=== PATIENT | male | born 1955 | race Caucasian/White ===

== ENCOUNTER 2016-11-13 12:44 | Inpatient (IN) | payer OTHER ==
[~2016-11-13] VITALS: Ht 167.6 cm; Wt 65.0 kg
[2016-11-13 12:44] VITALS: O2SAT 100
[~2016-11-13 12:44] MED LIST: HYDR-3533 PO
[2016-11-13] MEDS ORDERED: ETOMIDATE 20 MG/10 ML VIAL ONE (12:52)
[2016-11-13] MEDS ORDERED: SUCCINYLCHOLINE CHLORIDE 200 MG/10 ML VIAL ONE (12:53)
[2016-11-13] MEDS ORDERED: PROPOFOL 1000 MG/100 ML INJ 100 ML ONE ×3 (12:57→18:30)
--- NOTE | 2016-11-13 13:12 | PD ---
Data Data Orders Orders Etomidate Inj (Amidate Inj) (11/13/16 12:52) Succinylcholine Inj (Quelicin Inj) (11/13/16 12:53) Propofol 1000 Mg/100 Ml Inj (Diprivan 10 (11/13/16 12:57) Propofol 1000 Mg/100 Ml Inj (Diprivan 10 (11/13/16 13:02) MDM Supervised Visit with JAJA: No Procedures Procedure Narrative Intubation was done emergently. it was obtained. INTUBATION: The patient was put in optimal position for the procedure. Rapid sequence intubation was initiated by Dr. Dave. This was a very difficult intubation. The patient was eventually accomplished using difficult intubation set up on the Glidescope and a bougie. The patient was intubated with a 7.0 cuffed endotracheal tube. Tube placement was confirmed by visualization of the tube and balloon passing through the cords, capnometry and bilateral breath sounds. No breath sounds over stomach. Patient tolerated procedure well. Joy Gonzalez MD Nov 13, 2016 13:12
[2016-11-13 13:19] LABS: AUTOMATED NEUTROPHIL # 12.8 TH/MM3 (1.8-7.7); BASOPHIL % 0.1 % (0.0-2.0); HEMATOCRIT 41.5 % (39.0-51.0); HEMOGLOBIN 13.6 GM/DL (13.0-17.0); INTERNATIONAL NORMALIZED RATIO 1.1 RATIO; LYMPH % 10.3 % (9.0-44.0); LYMPHOCYTE # 1.7 TH/MM3 (1.0-4.8); MEAN CELL VOLUME 103.7 FL (80.0-100.0); MEAN CORPUSCULAR HGB CONC 32.8 % (32.0-36.0); MEAN PLATELET VOLUME 9.1 FL (7.0-11.0); MONO % 13.7 % (0.0-8.0); MONOCYTE # 2.3 TH/MM3 (0-0.9); NEUT % 75.9 % (16.0-70.0); PLATELET COUNT 146 TH/MM3 (150-450); PROTHROMBIN TIME - PATIENT 11.7 SEC (9.8-11.6); RED CELL DISTRIBUTION WIDTH 13.9 % (11.6-17.2); WHITE BLOOD COUNT 16.9 TH/MM3 (4.0-11.0)
[2016-11-13] MEDS ORDERED: MANNITOL INJ 0 ML ONE (13:22)
[2016-11-13] MEDS ORDERED: IOHEXOL 350 MG/ML 10 ML VIAL (for RAD DIAG) IVCONTRAST ONE (13:28)
--- NOTE | 2016-11-13 13:44 | RADRPT ---
EXAM DATE/TIME: 11/13/2016 13:11 [facility] COMPARISON: No previous studies available for comparison. INDICATIONS : Trauma alert, found down in home, unresponsive RADIATION DOSE: Not given MEDICAL HISTORY : Non-responsive. SURGICAL HISTORY : Non-responsive. ENCOUNTER: Initial ACUITY: 1 day PAIN SCALE: Non-responsive LOCATION: cranial TECHNIQUE: Multiple contiguous axial images were obtained of the head. Using automated exposure control and adj ustment of the mA and/or kV according to patient size, radiation dose was kept as low as reasonably a chievable to obtain optimal diagnostic quality images. DICOM format image data is available electro nically for review and comparison. FINDINGS: Calvarium appears intact. There is some superficial soft tissue swelling and hematoma in the right te mporal parietal region. Intracranially midline structures and major anatomic landmarks correctly situ ated. There is a 5.4 cm area in the left cerebellar hemisphere of contusion with compression of the f ourth ventricle without evidence of obstructive hydrocephalus at this time. There is a 1.7 cm extrace rebral hematoma in the right low parietal temporal region extending into the posterior fossa and punc restrepo cortical hemorrhage in the right parietal region and in the blood is noted in the lower inner he mispheric fissure and along the tentorium. Small droplets of air are noted extracerebral E. in the po sterior right temporal region and just within the posterior right of midline posterior fossa with a f aint fracture nondistressed or distracted from the base of the skull extending cephalad in the right calvarium. There is air-fluid level in the left sphenoid sinus CONCLUSION: Right just lateral to midline occipital skull fracture. There is a 1.7 cm extracerebral subdural yomi kirby extending to the lower temporal region and lower parietal region. Contusions are noted in the le ft cerebellar hemisphere up to 5 cm in size with compression of the fourth ventricle and a contusion is noted in the right temporal lobe. There is small contusion cortically in the lower left parietal l obe. Small droplets of air are noted extracerebral E. on the right in the area of subdural hemorrhage . Note that the midline structures supratentorially are correctly situated. Yariel Odell MD on November 13, 2016 at 13:35 Board Certified Radiologist. This report was verified electronically.
--- NOTE | 2016-11-13 13:47 | RADRPT ---
EXAM DATE/TIME: 11/13/2016 13:11 [facility] COMPARISON: No previous studies available for comparison. INDICATIONS : Trauma alert, found down at home, unresponsive RADIATION DOSE: 26.35 CTDIvol (mGy) MEDICAL HISTORY : Non-responsive. SURGICAL HISTORY : Non-responsive. ENCOUNTER: Initial ACUITY: 1 day PAIN SCORE: Non-responsive LOCATION: facial TECHNIQUE: Volumetric scanning of the facial bones was performed. Using automated exposure control and adjustme nt of the mA and/or kV according to patient size, radiation dose was kept as low as reasonably achiev able to obtain optimal diagnostic quality images. DICOM format image data is available electronicall y for review and comparison. FINDINGS: ORBITS: The orbital and infraorbital osseous structures are intact. The retroconal structures have a normal configuration. No radiopaque foreign bodies are seen. NASAL BONE: The nasal bone and maxillary spine are intact ZYGOMATIC ARCHES: Symmetric without evidence of fracture. SINUSES: The maxillary, ethmoid and frontal sinuses are intact. Air-fluid level with admixture of air and flui d in the left sphenoid sinus compartment. An associated fracture in this region a swimmer's colon is not seen. NASAL CAVITY: The nasal septum is intact and midline. The lacrimal ducts are intact. Oral tracheal tube in place. SOFT TISSUES: No radiopaque foreign bodies seen. No soft-tissue swelling is seen. INTRACRANIAL: No intracranial air seen. CRIBIFORM PLATE: Grossly intact. CONCLUSION: Air-fluid level with admixture of air and fluid in the left sphenoid sinus compartment. Otherwise neg ative. Acute fracture is not identified. Yariel Odell MD on November 13, 2016 at 13:43 Board Certified Radiologist. This report was verified electronically.
--- NOTE | 2016-11-13 13:51 | RADRPT ---
EXAM DATE/TIME: 11/13/2016 13:13 [facility] COMPARISON: CT BRAIN W/O CONTRAST, November 13, 2016, 13:11. INDICATIONS : Trauma alert, found down in home, unresponsive RADIATION DOSE: 25.91 CTDIvol (mGy) MEDICAL HISTORY : Non-responsive. SURGICAL HISTORY : Non-responsive. ENCOUNTER: Initial ACUITY: 1 day PAIN SCALE: Non-responsive LOCATION: neck TECHNIQUE: Volumetric scanning of the cervical spine was performed. Multiplanar reconstructions in the sagittal, coronal and oblique axial planes were performed. Using automated exposure control and adjustment o f the mA and/or kV according to patient size, radiation dose was kept as low as reasonably achievable to obtain optimal diagnostic quality images. DICOM format image data is available electronically f or review and comparison. FINDINGS: Thin section axial imaging of the cervical spine was performed. Sagittal and coronal imaging demonstrate adequate alignment of the vertebral bodies. There are advanc ed degenerative changes at C4/5, C5/6 and to a lesser extent C6/7. No acute fracture is seen. There is limited imaging of the skull base. There is a fracture through the right side of the sacral bone with a sizable subdural hematoma. There is intraparenchymal hemorrhage within the right cerebell ar hemisphere. C1/2: No acute bony abnormality identified. C2/3: The thecal space is adequate. The neural foramina are adequate. No significant abnormality is identif ied. C3/4: There are minimal degenerative changes. The thecal space and neural foramina are adequate. C4/5: There is a degenerated disc with osteophytic ridging. This just effaces the ventral thecal sac. The t hecal space and foramina are adequate. C5/6: There is a degenerated disc with mild osteophytic ridging. The thecal space and neural foramina are a dequate. C6/7: There is a degenerated disc. The thecal space and foramina are adequate. Facet joints are intact. C7/T1: The thecal space is adequate. The neural foramina are adequate. No significant abnormality is identif ied. CONCLUSION: 1. No acute fracture the cervical spine identified. There are degenerative changes as above. 2. There is fracture of the right side of the occipital bone. There is subdural hematoma in the poste rior fossa on the right and intraparenchymal hemorrhage within the left cerebellar hemisphere. This w as assessed by CT imaging of the brain. Chuy Fitzpatrick MD on November 13, 2016 at 13:45 Board Certified Radiologist. This report was verified electronically.
[2016-11-13 13:52] LABS: BANDS 9 % (0-6); LYMPHOCYTES 12 % (9-44); MONOCYTES 7 % (0-8); NEUTROPHIL # MANUAL DIFF 13.7 TH/MM3 (1.8-7.7); POLYS (SEG NEUTROPHILS) 72 % (16-70)
[2016-11-13] MEDS ORDERED: MICROFIBRILLAR COLLAGEN HEMOSTAT 70 X 35 MM BANDAGE ONE (13:52)
[2016-11-13] MEDS ORDERED: MICROFIBRILLAR COLLAGEN HEMOSTAT 1 GM PKT ONE (13:53)
--- NOTE | 2016-11-13 13:56 | RADRPT ---
EXAM DATE/TIME: 11/13/2016 13:17 [facility] COMPARISON: CT CERVICAL SPINE W/O CONTRAST, November 13, 2016, 13:13. INDICATIONS : Trauma alert, found down at home, unresponsive IV CONTRAST: 96 cc Omnipaque 350 (iohexol) IV ; Cumulative dose for multiple exams. RADIATION DOSE: 9.96 CTDIvol (mGy) ; Combined studies - Thorax/Abdomen/Pelvis MEDICAL HISTORY : Non-responsive. SURGICAL HISTORY : Non-responsive. ENCOUNTER: Initial ACUITY: 1 day PAIN SCALE: Non-responsive LOCATION: chest TECHNIQUE: Volumetric scanning of the chest was performed. Using automated exposure control and adjustment of t he mA and/or kV according to patient size, radiation dose was kept as low as reasonably achievable to obtain optimal diagnostic quality images. DICOM format image data is available electronically for review and comparison. Follow-up recommendations for detected pulmonary nodules are based at a minimum on nodule size and pa tient risk factors according to Fleischner Society Guidelines. FINDINGS: LUNGS: There is no consolidation or pneumothorax. No concerning pulmonary nodule is visualized. PLEURA: There is no pleural thickening or pleural effusion. MEDIASTINUM: The heart and great vessels demonstrate no acute abnormality. There is no mediastinal or hilar lymph adenopathy. AXILLAE: Within normal limits. No lymphadenopathy. SKELETAL: Within normal limits for patient age. MISCELLANEOUS: The visualized upper abdominal organs demonstrate 2 small simple cysts within the liver. CONCLUSION: 1. Negative CT scan of the thorax. Chuy Fitzpatrick MD on November 13, 2016 at 13:50 Board Certified Radiologist. This report was verified electronically.
--- NOTE | 2016-11-13 14:04 | RADRPT ---
EXAM DATE/TIME: 11/13/2016 13:17 [facility] COMPARISON: No previous studies available for comparison. INDICATIONS : Trauma alert, forund down in home, unresponsive IV CONTRAST: 96 cc Omnipaque 350 (iohexol) IV ; Cumulative dose for multiple exams. ORAL CONTRAST: No oral contrast ingested. RADIATION DOSE: 9.96 CTDIvol (mGy) ; Combined studies - Thorax/Abdomen/Pelvis MEDICAL HISTORY : Non-responsive. SURGICAL HISTORY : Non-responsive. ENCOUNTER: Initial ACUITY: 1 day PAIN SCALE: Non-responsive LOCATION: Abdomen TECHNIQUE: Volumetric scanning of the abdomen and pelvis was performed. Using automated exposure control and ad justment of the mA and/or kV according to patient size, radiation dose was kept as low as reasonably achievable to obtain optimal diagnostic quality images. DICOM format image data is available electro nically for review and comparison. FINDINGS: LOWER LUNGS: The visualized lower lungs are clear. LIVER: Homogeneous density with 2 low density circumscribed lesions in the right lobe towards the dome measu ring up to 1/2 cm size but likely cyst or hemangioma. There is no dilation of the biliary tree. Clips in place prior cholecystectomy. SPLEEN: Normal size without lesion. PANCREAS: Within normal limits. KIDNEYS: Normal in size and shape. There is no mass, stone or hydronephrosis. ADRENAL GLANDS: Within normal limits. VASCULAR: There is no aortic aneurysm. BOWEL/MESENTERY: A few uncomplicated diverticuli of the sigmoid colon. Loops of small bowel in the mid abdomen disprop ortionately dilated relative colon without obstructing lesion suggestive of ileus pattern. No evidenc e of free air or free fluid.. ABDOMINAL WALL: Within normal limits. RETROPERITONEUM: There is no lymphadenopathy. BLADDER: No wall thickening or mass. Prostate enlarged at 4.7 cm transverse diameter with calcifications. REPRODUCTIVE: Within normal limits. INGUINAL: There is no lymphadenopathy or hernia. 3 cm cyst in the right superior testicle most likely epididyma l cyst. MUSCULOSKELETAL: Within normal limits for patient age. CONCLUSION: Disproportionate dilatation of small bowel in the mid and upper abdomen relatively: Most consistent w ith ileus pattern. Surgical absence of the gallbladder with 2 cysts in the right lobe of the liver. Uncomplicated diverticuli of the sigmoid colon. 3 cm right testicle epid idymal cyst.. Yariel Odell MD on November 13, 2016 at 13:56 Board Certified Radiologist. This report was verified electronically.
--- NOTE | 2016-11-13 14:04 | RADRPT ---
EXAM DATE/TIME: 11/13/2016 13:15 [facility] COMPARISON: No previous studies available for comparison. INDICATIONS : Trauma alert, found down at home, unresponsive RADIATION DOSE: CTDIvol (mGy) ; Reconstructed from previous dataset, no dose MEDICAL HISTORY : Non-responsive. SURGICAL HISTORY : Non-responsive. ENCOUNTER: Initial ACUITY: 1 day PAIN SCALE: Non-responsive LOCATION: upper chest TECHNIQUE: Volumetric scanning of the thoracic spine was performed. Multiplanar reconstructions in the sagittal , coronal and oblique axial planes were performed. Using automated exposure control and adjustment o f the mA and/or kV according to patient size, radiation dose was kept as low as reasonably achievable to obtain optimal diagnostic quality images. DICOM format image data is available electronically f or review and comparison. FINDINGS: The vertebral bodies of the thoracic spine are in normal alignment without evidence of subluxation. Vertebral body height is maintained. No fractures are seen. T1-T2: Normal. T2-T3: The thecal sac has a normal diameter. No evidence of disc bulge or protrusion. T3-T4: The thecal sac has a normal diameter. No evidence of disc bulge or protrusion. T4-T5: The thecal sac has a normal diameter. No evidence of disc bulge or protrusion. T5-T6: The thecal sac has a normal diameter. No evidence of disc bulge or protrusion. T6-T7: The thecal sac has a normal diameter. No evidence of disc bulge or protrusion. T7-T8: The thecal sac has a normal diameter. No evidence of disc bulge or protrusion. T8-T9: The thecal sac has a normal diameter. No evidence of disc bulge or protrusion. T9-T10: The thecal sac has a normal diameter. No evidence of disc bulge or protrusion. T10-T11: The thecal sac has a normal diameter. No evidence of disc bulge or protrusion. T11-T12: The thecal sac has a normal diameter. No evidence of disc bulge or protrusion. T12-L1: The thecal sac has a normal diameter. No evidence of disc bulge or protrusion. CONCLUSION: No fracture or subluxation. Bobby Rasmussen MD on November 13, 2016 at 14:00 Board Certified Radiologist. This report was verified electronically.
--- NOTE | 2016-11-13 14:11 | RADRPT ---
EXAM DATE/TIME: 11/13/2016 12:37 [facility] COMPARISON: No previous studies available for comparison. INDICATIONS : Trauma fall, ET tube placement. MEDICAL HISTORY : None. SURGICAL HISTORY : None. ENCOUNTER: Initial ACUITY: 1 day PAIN SCORE: Non-responsive. LOCATION: Bilateral chest FINDINGS: A single view of the chest demonstrates the lungs to be symmetrically aerated without evidence of mas s, infiltrate or effusion. Endotracheal tube are position above the lesli. The cardiomediastinal co ntours are unremarkable. Osseous structures are intact. CONCLUSION: 1. Endotracheal tube probably position above the lesli. 2. Otherwise, no acute cardiopulmonary process Aftab Cramer MD on November 13, 2016 at 14:04 Board Certified Radiologist. This report was verified electronically.
--- NOTE | 2016-11-13 14:14 | RADRPT ---
EXAM DATE/TIME: 11/13/2016 13:15 [facility] COMPARISON: No previous studies available for comparison. INDICATIONS : Trauma alert, Found down at home, unresponsive RADIATION DOSE: CTDIvol (mGy) ; Reconstructed from previous dataset, no dose MEDICAL HISTORY : Non-responsive. SURGICAL HISTORY : Non-responsive. ENCOUNTER: Initial ACUITY: 1 day PAIN SCALE: Non-responsive LOCATION: Lower back TECHNIQUE: Volumetric scanning of the lumbar spine was performed. Multiplanar reconstructions in the sagittal, coronal and oblique axial planes were performed. Using automated exposure control and adjustment of the mA and/or kV according to patient size, radiation dose was kept as low as reasonably achievable t o obtain optimal diagnostic quality images. DICOM format image data is available electronically for review and comparison. FINDINGS: Sagittal and coronal reconstructions showed dextroscoliosis of the lumbar spine with associated degen erative changes. No fracture or listhesis. Spinal canal appears to be patent throughout. Diverticular disease in the visualized portions of the sigmoid without diverticulitis. 1 cm cyst in the right hep atic lobe. Probable small lymph node lymphocele anterior to the right side of the sacrum. The coaxial images as follows: T12-L1: The thecal sac has a normal diameter. No evidence of disc bulge or protrusion. The neural foramina are patent bilaterally. L1-L2: The thecal sac has a normal diameter. No evidence of disc bulge or protrusion. The neural foramina are patent bilaterally. L2-L3: The thecal sac has a normal diameter. No evidence of disc bulge or protrusion. The neural foramina are patent bilaterally. L3-L4: The thecal sac has a normal diameter. No evidence of disc bulge or protrusion. The neural foramina are patent bilaterally. L4-L5: The thecal sac has a normal diameter. No evidence of disc bulge or protrusion. The neural foramina are patent bilaterally. L5-S1: The thecal sac has a normal diameter. No evidence of disc bulge or protrusion. The neural foramina are patent bilaterally. CONCLUSION: 1. No acute fracture. Spinal canal and neural foramen appear to be adequate throughout. 2. Dextroscoliosis of the lumbar spine with mild associated degenerative changes 3. Diverticular disease of the sigmoid without diverticulitis Aftab Cramer MD on November 13, 2016 at 14:09 Board Certified Radiologist. This report was verified electronically.
[2016-11-13 14:30] LABS: HEMATOCRIT 34.7 % (39.0-51.0); HEMOGLOBIN 11.8 GM/DL (13.0-17.0)
[2016-11-13] MEDS ORDERED: SODIUM CHLOR 0.9% 1000 ML INJ 1,000 ML IV SCH (14:52)
--- NOTE | 2016-11-13 14:57 | PD.OP ---
Operative Report Date of Surgery: Nov 13, 2016 Preoperative Diagnosis: Trauma alert. Left cerebellar hemorrhage Postoperative Diagnosis: Trauma alert. Left cerebellar hemorrhage Procedure: Right frontal [place] hole with placement of a ventriculostomy catheter Anesthesia: general Surgeon: Stu Grimm Oven Drier Tender(s): Mayra Hinojosa Operation and Findings: INDICATIONS FOR THE PROCEDURE This is an adult male who was brought to [facility] as a trauma alert with a GCS of 3 and a hemorrhagic mass in his cerebellum causing obstruction of the CSF flow and mass effect Placement of ventriculostomy was indicated as recommended by the Trauma Commitee of [place] [employer] I have discussed the details including the [id number] details of the surgical procedure, its indications, alternatives, risks, and potential complications. Risks and potential complications include, but are not limited to, infection, blood loss, CSF leak, partial or complete loss of sight in one or both eyes, paresis, paralysis, permanent pain or difficulty swallowing, loss of bowel or bladder function, complications from anesthesia, blood clot, stroke, myocardial infarction, or even . DETAILS OF THE SURGICAL PROCEDURE The right frontal area was shaved, prepped and draped in the usual sterile fashion. An entry point was selected 90 millimeters posterior to the supraorbital rim and 25 millimeters from the midline. The area was infiltrated with 1% lidocaine with epinephrine. A skin incision was made with a #15 blade down to the level of the periosteum. Using a TPS drill and A [place] 6mm drill bit a manas hole was made with the high speed drill. The dura was carefully opened with a brain needle and a ventriculostomy catheter was advanced into the ventricular system. At a depth of 60 millimeters, cerebrospinal fluid was obtained. Opening pressure was 20 centimeters of water. A specimen of cerebrospinal fluid was collected and sent to the lab for analysis of the glucose, protein, cell count and cultures. The catheter was then tunneled under the galea and externalized through a separate stab incision. The incision was closed with 3-0 nylon in a single plane. The patient tolerated the procedure well. COMPLICATIONS There were no intraoperative complications. BLOOD LOSS Blood loss was minimal. Stu Grimm MD Nov 13, 2016 14:57
--- NOTE | 2016-11-13 14:57 | PD.OP ---
Operative Report Date of Surgery: Nov 13, 2016 Preoperative Diagnosis: Trauma alert. Left cerebellar hemorrhage Postoperative Diagnosis: Trauma alert. Left cerebellar hemorrhage Procedure: Right frontal [place] hole with placement of a ventriculostomy catheter Anesthesia: general Surgeon: Stu Grimm Truck Terminal Manager(s): Mayra Hinojosa Operation and Findings: INDICATIONS FOR THE PROCEDURE This is an adult male who was brought to [facility] as a trauma alert with a GCS of 3 and a hemorrhagic mass in his cerebellum causing obstruction of the CSF flow and mass effect Placement of ventriculostomy was indicated as recommended by the Trauma Commitee of [place] [employer] I have discussed the details including the [id number] details of the surgical procedure, its indications, alternatives, risks, and potential complications. Risks and potential complications include, but are not limited to, infection, blood loss, CSF leak, partial or complete loss of sight in one or both eyes, paresis, paralysis, permanent pain or difficulty swallowing, loss of bowel or bladder function, complications from anesthesia, blood clot, stroke, myocardial infarction, or even . DETAILS OF THE SURGICAL PROCEDURE The right frontal area was shaved, prepped and draped in the usual sterile fashion. An entry point was selected 90 millimeters posterior to the supraorbital rim and 25 millimeters from the midline. The area was infiltrated with 1% lidocaine with epinephrine. A skin incision was made with a #15 blade down to the level of the periosteum. Using a TPS drill and A [place] 6mm drill bit a manas hole was made with the high speed drill. The dura was carefully opened with a brain needle and a ventriculostomy catheter was advanced into the ventricular system. At a depth of 60 millimeters, cerebrospinal fluid was obtained. Opening pressure was 20 centimeters of water. A specimen of cerebrospinal fluid was collected and sent to the lab for analysis of the glucose, protein, cell count and cultures. The catheter was then tunneled under the galea and externalized through a separate stab incision. The incision was closed with 3-0 nylon in a single plane. The patient tolerated the procedure well. COMPLICATIONS There were no intraoperative complications. BLOOD LOSS Blood loss was minimal. Stu Grimm MD Nov 13, 2016 14:57
--- NOTE | 2016-11-13 14:57 | PD.OP ---
Operative Report Date of Surgery: Nov 13, 2016 Preoperative Diagnosis: Trauma alert. Left cerebellar hemorrhage Postoperative Diagnosis: Trauma alert. Left cerebellar hemorrhage Procedure: Right frontal Kechi hole with placement of a ventriculostomy catheter Anesthesia: general Surgeon: Stu Grimm Food Operations Manager(s): Mayra Hinojosa Operation and Findings: INDICATIONS FOR THE PROCEDURE This is an adult male who was brought to [facility] as a trauma alert with a GCS of 3 and a hemorrhagic mass in his cerebellum causing obstruction of the CSF flow and mass effect Placement of ventriculostomy was indicated as recommended by the Trauma Commitee of [place] [employer] I have discussed the details including the [id number] details of the surgical procedure, its indications, alternatives, risks, and potential complications. Risks and potential complications include, but are not limited to, infection, blood loss, CSF leak, partial or complete loss of sight in one or both eyes, paresis, paralysis, permanent pain or difficulty swallowing, loss of bowel or bladder function, complications from anesthesia, blood clot, stroke, myocardial infarction, or even . DETAILS OF THE SURGICAL PROCEDURE The right frontal area was shaved, prepped and draped in the usual sterile fashion. An entry point was selected 90 millimeters posterior to the supraorbital rim and 25 millimeters from the midline. The area was infiltrated with 1% lidocaine with epinephrine. A skin incision was made with a #15 blade down to the level of the periosteum. Using a TPS drill and A [place] 6mm drill bit a manas hole was made with the high speed drill. The dura was carefully opened with a brain needle and a ventriculostomy catheter was advanced into the ventricular system. At a depth of 60 millimeters, cerebrospinal fluid was obtained. Opening pressure was 20 centimeters of water. A specimen of cerebrospinal fluid was collected and sent to the lab for analysis of the glucose, protein, cell count and cultures. The catheter was then tunneled under the galea and externalized through a separate stab incision. The incision was closed with 3-0 nylon in a single plane. The patient tolerated the procedure well. COMPLICATIONS There were no intraoperative complications. BLOOD LOSS Blood loss was minimal. Stu Grimm MD Nov 13, 2016 14:57
--- NOTE | 2016-11-13 14:57 | PD.CONS ---
[facility] Service Neurosurg Consult Requested By Trauma surgeon Reason for Consult Trauma alert, [facility] Primary Care Physician Unknown History of Present Illness This is a 61 year old male who was found apparently at his apartment unconscious and was brought to our institution as a priority-1 Trauma Alert, on the spinal board with a C-collar in place. No seizure activity noted. No tongue bitting. No incontinence of stool ir urine. At the scene the patient apparently had a [place] Coma Scale about 5 of 6 and he is worse upon arrival. He was immediately intubated and ventilated and resuscitated according to the ATLS protocol.He was hemodynamically stable. His GCS at time of my assessment was 4. Neurosurgical consultation was requested. GENERAL: A thin-appearing, almost emaciated male. HEENT: Normocephalic. Trauma to the head consisting of some right temporoparietal swelling in the form of a contusion. Bilateral raccoon eyes. No bleeding from the mouth but some blood over the teeth. Positive hemotympanum bilateral. Positive Hess's sign bilateral. Pupils are equal and poorly reactive about 4 mm. NECK: Bilateral carotid pulses. No signs of trauma to the neck. CHEST: Bilateral breath sounds decreased over both lung moser consistent with a moderate degree of COPD, pulmonary cachexia or some other type of emaciation noted. HEART: Regular rhythm. Hemodynamically the patient is stable. ABDOMEN: Soft. No signs of trauma to the chest, abdomen or pelvis. The pelvis is stable. EXTREMITIES: The patient has bilateral femoral, popliteal, dorsalis pedis and posterior tibial pulses to palpation. Bilateral brachial, radial and ulnar pulses. No signs of trauma to the extremities. No deformities noted. BACK: The patient is rotated to the back. No signs of trauma to the back. NEUROLOGIC: As above noted the patient's [place] Coma Scale was around 5 when he got here. He was immediately intubated and ventilated because he could not keep his upper airway. ASSESSMENT AND PLAN He is taken immediately to CT scan after resuscitation. He is found to have massive intracranial injuries including skull fracture, bleeding in the right cerebellar hemisphere, compression of the flow of the cerebrospinal fluid, hemorrhages in the cerebral area and some air. He also has a large subdural hematoma on the right. The patient is taken immediately to the operating room and he will come to the ICU after the decompression. Discussed this with Dr. Grimm. Review of Systems Unobtainable due to his clinical condition Past Family Social History Allergies: Coded Allergies: No Known Allergies (Unverified , 11/13/16) Past Medical History Unobtainable due to his clinical condition Past Surgical History Unobtainable due to his clinical condition Reported Medications Unobtainable due to his clinical condition Active Ordered Medications Current Medications Etomidate (Amidate Inj) 20 mg STK-MED ONCE .ROUTE ; Start 11/13/16 at 12:52; Stop 11/13/16 at 12:53; Status DC Succinylcholine Chloride (Quelicin Inj) 200 mg STK-MED ONCE .ROUTE ; Start 11/13 at 12:53; Stop 11/13/16 at 12:54; Status DC Propofol 100 ml @ As Directed STK-MED ONCE .ROUTE ; Start 11/13/16 at 12:57; Stop 11/13/16 at 12:58; Status DC Propofol 100 ml @ As Directed STK-MED ONCE .ROUTE ; Start 11/13/16 at 13:02; Stop 11/13/16 at 13:03; Status DC Mannitol 0 ml @ As Directed STK-MED ONCE .ROUTE ; Start 11/13/16 at 13:22; Stop 11/13/16 at 13:23; Status DC Iohexol (Omnipaque 350 Inj) 96 ml STK-MED ONCE IVCONTRAST Last administered on 11/13/16t 13:28; Start 11/13/16 at 13:28; Stop 11/13/16 at 13:29; Status DC Nicardipine HCl (Cardene Inj) 25 mg STK-MED ONCE .ROUTE ; Start 11/13/16 at 13: 51; Stop 11/13/16 at 13:52; Status DC Microfibriller Collagen Hemostat (Avitene Bandage) 1 bandage STK-MED ONCE .ROUTE Last administered on 11/13/16t 15:16; Start 11/13/16 at 13:52; Stop at 13:53; Status DC Microfibriller Collagen Hemostat (Avitene Powder Pack) 1 gm STK-MED ONCE .ROUTE ; Start 11/13/16 at 13:53; Stop 11/13/16 at 13:54; Status DC Sodium Chloride 1,000 ml @ 100 mls/hr Q10H IV ; Start 11/13/16 at 14:52; Stop 11/13/16 at 15:35; Status DC Sodium Chloride (NS Flush) 2 ml UNSCH PRN IV FLUSH FLUSH AFTER USING IV ACCESS ; Start 11/13/16 at 15:00 Sodium Chloride (NS Flush) 2 ml BID IV FLUSH Last administered on 11/21/16 21: 19; Start 11/13/16 at 21:00 Ondansetron HCl (Zofran Inj) 4 mg Q6H PRN IV NAUSEA OR VOMITING; Start at 15:00 Pantoprazole Sodium (Protonix Inj) 40 mg Q24H IV ; Start 11/13/16 at 15:00; Stop 11/13/16 at 15:44; Status DC Miscellaneous Information (Post-op Orders (for Pharmacy)) STAT ONCE XX ; Start 11/13/16 at 15:00; Stop 11/13/16 at 18:04; Status DC Naloxone HCl (Narcan Inj) 0.4 mg UNSCH PRN IV PUSH SEE LABEL COMMENTS; Start at 15:00 Levetriacetam 500 mg/Sodium Chloride 105 ml @ 420 mls/hr Q12H IV Last administered on 11/21/16 16:46; Start 11/13/16 at 16:00 Propofol 100 ml @ 0 mls/hr TITRATE PRN IV SEDATION; Start 11/13/16 at 15:00; Status UNV Sodium Chloride 500 ml @ 30 mls/hr UNSCH PRN IV elevated ICP; Start 11/13/16 at 15:00; Stop 11/18/16 at 14:59; Status DC Potassium Chloride/Sodium Chloride 1,000 ml @ 100 mls/hr Q10H IV Last administered on 11/14/16 05:09; Start 11/13/16 at 15:00; Stop 11/14/16 at 10:14 ; Status DC IV Flush (NS Flush) 2 ml UNSCH PRN IVF FLUSH AFTER USING IV ACCESS; Start 11/13 at 15:00; Stop 11/13/16 at 15:35; Status DC IV Flush (NS Flush) 2 ml BID IVF ; Start 11/13/16 at 21:00; Stop 11/13/16 at 21: 00; Status DC Cefazolin Sodium/ Dextrose 50 ml @ 100 mls/hr Q8H IV Last administered on 11/14 14:48; Start 11/13/16 at 22:00; Stop 11/14/16 at 14:29; Status DC Levetriacetam 500 mg/Sodium Chloride 105 ml @ 400 mls/hr Q12H IV ; Start at 15:00; Stop 11/13/16 at 15:35; Status DC Bisacodyl (Dulcolax Supp) 10 mg DAILY PRN RECTAL CONSTIPATION; Start 11/13/16 at 15:00 Docusate Sodium (Colace) 100 mg BID PO Last administered on 11/20/16 20:25; Start 11/13/16 at 21:00 Pantoprazole Sodium (Protonix) 40 mg DAILY PO ; Start 11/14/16 at 09:00; Stop at 09:00; Status DC Pantoprazole Sodium (Protonix Inj) 40 mg DAILY IVP ; Start 11/14/16 at 09:00; Stop 11/14/16 at 09:00; Status DC Ondansetron HCl (Zofran Inj) 4 mg Q6H PRN IV NAUSEA OR VOMITING; Start at 15:00; Stop 11/13/16 at 15:35; Status DC Calcium Gluconate (Calcium Gluconate Inj) 1 gm UNSCH PRN IV SEE LABEL COMMENTS ; Start 11/13/16 at 15:00 Potassium Chloride 100 ml @ 50 mls/hr UNSCH PRN IV POTASSIUM LESS THAN 4; Start 11/13/16 at 15:00 Magnesium Sulfate 4 gm/Sodium Chloride 108 ml @ 108 mls/hr UNSCH PRN IV MAGNESIUM LESS THAN 2; Start 11/13/16 at 15:00 Acetaminophen/ Hydrocodone Bitart (Joice 10-325 Mg) 1 tab Q4H PRN PO PAIN SCALE 1 TO 5; Start 11/13/16 at 15:00; Stop 11/14/16 at 02:23; Status DC Acetaminophen/ Hydrocodone Bitart (Joice 10-325 Mg) 2 tab Q4H PRN PO PAIN SCALE 6 TO 10; Start 11/13/16 at 15:00; Stop 11/14/16 at 02:23; Status DC Morphine Sulfate (Morphine Inj) 2 mg Q2H PRN IV PUSH PAIN SCALE 1 TO 6; Start 11/13/16 at 15:00 Morphine Sulfate (Morphine Inj) 4 mg Q2H PRN IV PUSH PAIN SCALE 7 TO 10; Start 11/13/16 at 15:00 Acetaminophen (Tylenol) 650 mg Q4H PRN PO TEMPERATURE > 101.5 F; Start at 15:00 Tranexamic Acid 1000 mg/Sodium Chloride 110 ml @ 220 mls/hr ONCE ONCE IV ; Start 11/13/16 at 16:30; Stop 11/13/16 at 16:59; Status DC Gelatin (Gelfoam 100 Top) 1 foam STK-MED ONCE .ROUTE Last administered on 15:16; Start 11/13/16 at 16:48; Stop 11/13/16 at 16:49; Status DC Cefazolin Sodium/ Dextrose 50 ml @ 100 mls/hr ONCE ONCE IV ; Start 11/13/16 at 16:52; Stop 11/13/16 at 18:03; Status DC Mannitol (Mannitol Inj) 25 gm Q6HR IV Last administered on 11/14/16 01:34; Start 11/13/16 at 18:00; Stop 11/14/16 at 10:12; Status DC Miscellaneous Information ALL NURSING DEPARTME... UNSCH PRN .XX SEE LABEL COMMENTS; Start 11/13/16 at 18:05; Stop 11/14/16 at 18:04; Status DC Fentanyl Citrate 250 ml @ As Directed STK-MED ONCE .ROUTE ; Start 11/13/16 at 19:31; Stop 11/13/16 at 19:32; Status DC Propofol 100 ml @ 1.65 mls/hr TITRATE PRN IV SEDATION Last administered on 18:36; Start 11/13/16 at 20:15 Propofol 100 ml @ As Directed STK-MED ONCE .ROUTE ; Start 11/13/16 at 18:30; Stop 11/13/16 at 20:03; Status DC Fentanyl Citrate 250 ml @ 5 mls/hr TITRATE PRN IV Sedation Last administered on 11/20/16 18:01; Start 11/13/16 at 23:00 Acetaminophen (Ofirmev 1000 Mg/ 100 ml Inj) 1,000 mg Q6H PRN IV TEMP > 101 Last administered on 11/20/16 20:34; Start 11/14/16 at 01:30; Stop 11/21/16 at 13:29; Status DC Famotidine (Pepcid Inj) 20 mg Q12H IV PUSH Last administered on 11/19/16 08:20 ; Start 11/14/16 at 09:00; Stop 11/19/16 at 20:05; Status DC Dextrose (D50w (Vial) Inj) 25 ml UNSCH PRN IV PUSH HYPOGLYCEMIA-SEE COMMENTS; Start 11/14/16 at 02:30 Insulin Human Regular (NovoLIN R SUPPLEMENTAL SCALE) 1 Q6HR SQ Last administered on 11/21/16 13:04; Start 11/14/16 at 06:00 Chlorhexidine Gluconate (Peridex 0.12% Liq) 15 ml BID@08,20 MT Last administered on 11/21/16 21:19; Start 11/14/16 at 08:00 Magnesium Oxide (Mag-Ox) 800 mg UNSCH PRN PO For Magnesium 1.2 - 1.6 mg/dL; Start 11/14/16 at 02:30 Magnesium Sulfate 4 gm/Sodium Chloride 100 ml @ 50 mls/hr UNSCH PRN IV For Magnesium 0.9 - 1.1 mg/dL; Start 11/14/16 at 02:30 Magnesium Sulfate 2 gm/Sodium Chloride 100 ml @ 50 mls/hr UNSCH PRN IV For Magnesium 1.2 - 1.6 mg/dL; Start 11/14/16 at 02:30 Potassium Chloride 100 ml @ 50 mls/hr Q2H PRN IV For Potassium 2.8 - 3.2 mEq/ L Last administered on 11/17/16 10:35; Start 11/14/16 at 02:30 Potassium Chloride 100 ml @ 50 mls/hr Q2H PRN IV For Potassium 3.3 - 3.5 mEq/L ; Start 11/14/16 at 02:30 Potassium Chloride 100 ml @ 50 mls/hr Q2H PRN IV For Potassium 2.8 - 3.2 mEq/L ; Start 11/14/16 at 02:30 Potassium Chloride 100 ml @ 25 mls/hr UNSCH PRN IV For Potassium 3.3 - 3.5 mEq /L Last administered on 11/18/16 04:50; Start 11/14/16 at 02:30 Potassium Phosphate (K-Phos) 2,000 mg Q4H PRN PO For Phosphorus < 2.5 mg/dL; Start 11/14/16 at 02:30 Potassium Phosphate (K-Phos) 2,000 mg UNSCH PRN PO/TUBE SEE LABEL COMMENTS; Start 11/14/16 at 02:30 Potassium Phosphate 30 mmol/ Sodium Chloride 260 ml @ 42 mls/hr UNSCH PRN IV SEE LABEL COMMENTS; Start 11/14/16 at 02:30 Sodium Phosphate 30 mmol/Sodium Chloride 250 ml @ 42 mls/hr UNSCH PRN IV For Phosphorus < 2.5 mg/dL; Start 11/14/16 at 02:30 Albuterol/ Ipratropium (Duoneb Neb) 1 ampule Q6HR NEB INH Last administered on 11/17/16 08:43; Start 11/14/16 at 04:00; Stop 11/17/16 at 12:16; Status DC Albuterol/ Ipratropium (Duoneb Neb) 1 ampule Q2HR NEB PRN INH WHEEZING; Start 11/14/16 at 02:30 Mannitol 125 ml @ 125 mls/hr Q6H IV Last administered on 11/14/16 08:09; Start 11/14/16 at 08:00; Stop 11/14/16 at 10:15; Status DC Sodium Chloride 188 meq/Sodium Chloride 1,047 ml @ 50 mls/hr [id number] IV Last administered on 11/14/16 09:13; Start 11/14/16 at 09:30; Stop 11/14/16 at 10:11 ; Status DC Sodium Chloride 500 ml @ 30 mls/hr ONCE ONCE IV Last administered on 10:29; Start 11/14/16 at 10:30; Stop 11/15/16 at 03:09; Status DC Magnesium Hydroxide (Milk Of Magnesia Liq) 30 ml HS PO Last administered on 20:25; Start 11/15/16 at 21:00 Lactulose (Lactulose Liq) 30 ml DAILY PO Last administered on 11/20/16 08:03; Start 11/15/16 at 09:00 Ampicillin Sodium/ Sulbactam Sodium 3 gm/Sodium Chloride 100 ml @ 200 mls/hr Q6H IV Last administered on 11/17/16 09:41; Start 11/15/16 at 10:00; Stop at 12:16; Status DC Albuterol/ Ipratropium (Duoneb Neb) 1 ampule Q6HR NEB INH Last administered on 11/21/16 09:23; Start 11/17/16 at 16:00; Stop 11/21/16 at 15:59; Status DC Ceftriaxone Sodium 2000 mg/ Sodium Chloride 100 ml @ 200 mls/hr Q24H IV Last administered on 11/21/16 13:07; Start 11/17/16 at 13:00 Bumetanide (Bumex Inj) 1 mg ONCE ONCE IV PUSH Last administered on 11/17/16 17:28; Start 11/17/16 at 17:00; Stop 11/17/16 at 17:01; Status DC Propranolol HCl (Inderal) 20 mg Q12HR PO Last administered on 11/21/16 21:20; Start 11/18/16 at 10:00 Labetalol HCl (Trandate Inj) 10 mg Q4H PRN IV PUSH SYS BP GREATER THAN 160 MMHG Last administered on 11/21/16 06:28; Start 11/18/16 at 10:00 Oxycodone/ Acetaminophen (Percocet 5-325 Mg) 1 tab Q6H PO Last administered on 11/21/16 21:20; Start 11/18/16 at 10:00 Hydralazine HCl (Apresoline Inj) 10 mg Q4H PRN IV PUSH HTN; Start 11/19/16 at 11:00 Famotidine (Pepcid) 20 mg BID PO Last administered on 11/21/16 21:20; Start at 21:00 Enoxaparin Sodium (Lovenox Inj) 30 mg Q12H SQ Last administered on 11/21/16 21 :20; Start 11/20/16 at 21:00 Sodium Chloride 500 ml @ 20 mls/hr UNSCH PRN IV ICP Last administered on 17:07; Start 11/20/16 at 16:30; Stop 11/25/16 at 16:29 Sodium Chloride 240 meq/Syringe / Bag 60 ml @ 60 mls/hr STAT STAT IV Last administered on 11/20/16t 17:07; Start 11/20/16 at 16:47; Stop 11/20/16 at 17:46 ; Status DC Family History Unobtainable due to his clinical condition Social History Unobtainable due to his clinical condition Physical Exam Vital Signs Vital Signs Date Time Temp Pulse Resp B/P (MAP) Pulse Ox O2 Delivery O2 Flow Rate FiO2 11/13/16 12:44 100 15.00 11/13/16 12:44 100 Physical Exam The patient is intubated and sedated. Extends to painful stimuli with all 4 extremities. Cranial Nerves: Pupils equal, round, reactive to light. Eyes appear conjugated. There was no nystagmus, no papilledema. Face musculature appeared symmetrical at rest. Face sensation, olfaction, visual moser, and hearing cannot be adequately assessed due to his neurological condition. The patient has a corneal reflex. He has a gag reflex. The sternocleidomastoid and trapezius are symmetrical. Cervical Spine: His neck is soft, supple, without nuchal rigidity. Motor: Extends to painful stimuli his extremities . Reflexes: Deep tendon reflexes are 1+ and symmetrical in the biceps, triceps, and brachioradialis, bilaterally, in the upper extremities. In the lower extremities, the patellar and ankles are 1+, bilaterally. There is a bilateral plantar flexion response. There is no clonus or other abnormal reflexes noted. Sensory: On examination there is response to painful stimuli, extending with both upper and lower extremities. Cerebellar: Examination cannot be adequately assessed due to the patient's neurological condition. Laboratory Laboratory Tests Test 11/13/16 12:50 11/13/16 14:10 11/13/16 14:14 White Blood Count 16.9 Red Blood Count 4.00 Hemoglobin 13.6 11.8 Bedside Hemoglobin 14.6 Hematocrit 41.5 34.7 Bedside Hematocrit 43.0 Mean Corpuscular Volume 103.7 Mean Corpuscular Hemoglobin 34.0 Mean Corpuscular Hemoglobin Concent 32.8 Red Cell Distribution Width 13.9 Platelet Count 146 Mean Platelet Volume 9.1 Neutrophils (%) (Auto) 75.9 Lymphocytes (%) (Auto) 10.3 Monocytes (%) (Auto) 13.7 Eosinophils (%) (Auto) 0.0 Basophils (%) (Auto) 0.1 Neutrophils # (Auto) 12.8 Lymphocytes # (Auto) 1.7 Monocytes # (Auto) 2.3 Eosinophils # (Auto) 0.0 Basophils # (Auto) 0.0 CBC Comment AUTO DIFF Differential Total Cells Counted 100 Neutrophils % (Manual) 72 Band Neutrophils % 9 Lymphocytes % 12 Monocytes % 7 Neutrophils # (Manual) 13.7 Differential Comment FINAL DIFF MANUAL Prothrombin Time 11.7 Prothromb Time International Ratio 1.1 Activated Partial Thromboplast Time 25.7 Bedside Sodium 135 Bedside Potassium 4.3 Bedside Chloride 96 Bedside Blood Urea Nitrogen 11 Bedside Creatinine 0.7 Bedside Glucose 203 Ethyl Alcohol Level LESS THAN 3 Blood Gas Puncture Site N/A Blood Gas Patient Temperature 98.6 Blood Gas HCO3 18 Blood Gas Base Excess -5.5 Blood Gas Oxygen Saturation 97 Arterial Blood pH 7.47 Arterial Blood Partial Pressure CO2 24 Arterial Blood Partial Pressure O2 429 Arterial Blood Oxygen Content 15.2 Arterial Blood Carboxyhemoglobin 0.6 Arterial Blood Methemoglobin 1.1 Blood Gas Hemoglobin 10.3 Blood Gas Inspired Oxygen 96 Result Diagram: 11/13/16 1414 Imaging Last Impressions Maxillofacial CT 11/13/166 Signed Impressions: Service Date/Time: Sunday, November 13, 2016 13:11 - CONCLUSION: Air-fluid level with admixture of air and fluid in the left sphenoid sinus compartment. Otherwise negative. Acute fracture is not identified. Yariel Odell MD Thoracic Spine CT 11/13/161 Signed Impressions: Service Date/Time: Sunday, November 13, 2016 13:15 - CONCLUSION: No fracture or subluxation. Bobby Rasmussen MD Lumbar Spine CT 11/13/161 Signed Impressions: Service Date/Time: Sunday, November 13, 2016 13:15 - CONCLUSION: 1. No acute fracture. Spinal canal and neural foramen appear to be adequate throughout. 2. Dextroscoliosis of the lumbar spine with mild associated degenerative changes 3. Diverticular disease of the sigmoid without diverticulitis Aftab Cramer MD Head CT 11/13/16 1311 Signed Impressions: Service Date/Time: Sunday, November 13, 2016 13:11 - CONCLUSION: Right just lateral to midline occipital skull fracture. There is a 1.7 cm extracerebral subdural hematoma extending to the lower temporal region and lower parietal region. Contusions are noted in the left cerebellar hemisphere up to 5 cm in size with compression of the fourth ventricle and a contusion is noted in the right temporal lobe. There is small contusion cortically in the lower left parietal lobe. Small droplets of air are noted extracerebral E. on the right in the area of subdural hemorrhage. Note that the midline structures supratentorially are correctly situated. Yariel Odell MD Chest X-Ray 11/13/161310 Signed Impressions: Service Date/Time: Sunday, November 13, 2016 12:37 - CONCLUSION: 1. Endotracheal tube probably position above the lesli. 2. Otherwise, no acute cardiopulmonary process Aftab Cramer MD Chest CT 11/13/161310 Signed Impressions: Service Date/Time: Sunday, November 13, 2016 13:17 - CONCLUSION: 1. Negative CT scan of the thorax. Chuy Fitzpatrick MD Cervical Spine CT 11/13/161310 Signed Impressions: Service Date/Time: Sunday, November 13, 2016 13:13 - CONCLUSION: 1. No acute fracture the cervical spine identified. There are degenerative changes as above. 2. There is fracture of the right side of the occipital bone. There is subdural hematoma in the posterior fossa on the right and intraparenchymal hemorrhage within the left cerebellar hemisphere. This was assessed by CT imaging of the brain. Chuy Fitzpatrick MD Abdomen/Pelvis CT 11/13/161310 Signed Impressions: Service Date/Time: Sunday, November 13, 2016 13:17 - CONCLUSION: Disproportionate dilatation of small bowel in the mid and upper abdomen relatively: Most consistent with ileus pattern. Surgical absence of the gallbladder with 2 cysts in the right lobe of the liver. Uncomplicated diverticuli of the sigmoid colon. 3 cm right testicle epididymal cyst.. Yariel Odell MD Attending Statement Severe traumatic brain injury Emergency surgical decompression indicated in an attempt to save his life Placement of ICP monitor is indicated as recommended by the [place] [employer] . Keppra 500 mg IV every 12 hours. 3% NaCl at 30 L per hour. Serial sodium and Osm every 6 hours. End-tidal CO2 monitoring, correlate with ABG and. Target PaCO2 of 35-40. acetaminophen/cooling blanket as needed for temperature greater than 100.4 Acute respiratory failure Ventilator bundle. Pulmonary.. Continue aggressive pulmonary toilette, nasotracheal suction, and breathing treatments with nebulizers. Nutrition. NPO Renal. monitor closely urine output, BUN and creatinine Acute protein calorie malnutrition - mild - OGT, start TF - nutrition consult for goals - daily bmp - ICU electrolyte protocol Clark in place. Monitor intake and output. Monitor electrolytes and replace as indicated per ICU electrolyte replacement protocol. HEME: Acute blood loss anemia. Monitor and transfuse as needed for hemoglobin less than 7. Normal count. ENDO:Acute hyperglycemia secondary to trauma. Monitor bedside glucose and initiate low-dose insulin sliding scale as indicated for glucose greater than 180 central venous line placed by Dr. Nicole 11/16 A-line insertion for hemodynamic monitoring Protonix for stress ulcer prophylaxis Eugenio hose and SCD's for DVT prophylaxis. Discussed with Stu Orona MD Nov 13, 2016 14:57
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
[2016-11-13] MEDS ORDERED: levETIRAcetam INJ 500 MG in SODIUM CHLORIDE 0.9% INJ 100 ML IV SCH (15:00)
[2016-11-13] MEDS ORDERED: MORPHINE SULFATE 4 MG/ML INJ IV PUSH PRN ×2 (15:00)
[2016-11-13] MEDS ORDERED: SODIUM CHLORIDE 0.9% FLUSH 5 ML FLUSH IVF PRN (15:00)
[2016-11-13] MEDS ORDERED: SODIUM CHLORIDE 0.9% FLUSH 10 ML FLUSH IV FLUSH PRN (15:00)
[2016-11-13] MEDS ORDERED: PROPOFOL 1000 MG/100 ML INJ 100 ML IV PRN (15:00)
[2016-11-13] MEDS ORDERED: BISACODYL 10 MG SUPP RECTAL PRN (15:00)
[2016-11-13] MEDS ORDERED: NALOXONE HCL 0.4 MG/ML AMP IV PUSH PRN (15:00)
[2016-11-13] MEDS ORDERED: CALCIUM GLUCONATE 10% 1 GM/10 ML VIAL IV PRN (15:00)
[2016-11-13] MEDS ORDERED: POTASSIUM CHLOR 20 MEQ PREMIX 100 ML IV PRN (15:00)
[2016-11-13] MEDS ORDERED: MAGNESIUM SULFATE INJ 4 GM in SODIUM CHLORIDE 0.9% INJ 100 ML IV PRN (15:00)
[2016-11-13] MEDS ORDERED: ONDANSETRON HCL 4 MG/2 ML VIAL IV PRN ×2 (15:00)
[2016-11-13] MEDS ORDERED: PANTOPRAZOLE SODIUM 40 MG VIAL IV SCH (15:00)
[2016-11-13] MEDS ORDERED: ACETAMINOPHEN 325 MG TAB PO PRN (15:00)
[2016-11-13] MEDS ORDERED: 3% SALINE INJ 500 ML IV PRN (15:00)
[2016-11-13] MEDS ORDERED: Post-op Orders (for Pharmacy) MISC XX ONE (15:00)
[2016-11-13] MEDS ORDERED: ACETAMINOPHEN/HYDROcodone 325 MG/10 MG TAB PO PRN ×2 (15:00)
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
[2016-11-13 16:22] LABS: TOTAL PROTEIN,CSF 163.7 MG/DL (15.0-45.0)
[2016-11-13] MEDS ORDERED: TRANEXAMIC ACID 1 GM PRIOR TO PROCEDURE IV ONE ×2 (16:30)
[2016-11-13] MEDS ORDERED: GELFOAM SIZE 100 ONE (16:48)
[2016-11-13] MEDS ORDERED: ceFAZolin 2 GM PREMIX 50 ML IV ONE (16:52)
[2016-11-13 17:02] LABS: CSF EOSINOPHILS 1 %; CSF LYMPHOCYTES 6 %; CSF MONOCYTES 2 %; CSF NEUTROPHILS 91 %; RBC TUBE #1 43128 /MM3; WBC TUBE #1 439 /MM3 (0-10)
[2016-11-13 18:00] VITALS: O2SAT 100
[2016-11-13] MEDS ORDERED: DO NOT ADM ANY ANTICOAGULANT DRUGS PRN (18:05)
[2016-11-13 18:26] LABS: AUTOMATED NEUTROPHIL # 9.6 TH/MM3 (1.8-7.7); BASOPHIL % 0.1 % (0.0-2.0); HEMOGLOBIN 10.6 GM/DL (13.0-17.0); LYMPH % 7.9 % (9.0-44.0); LYMPHOCYTE # 0.9 TH/MM3 (1.0-4.8); MEAN CELL VOLUME 102.4 FL (80.0-100.0); MEAN CORPUSCULAR HEMOGLOBIN 34.9 PG (27.0-34.0); MEAN CORPUSCULAR HGB CONC 34.1 % (32.0-36.0); MEAN PLATELET VOLUME 8.7 FL (7.0-11.0); MONOCYTE # 0.9 TH/MM3 (0-0.9); RED BLOOD COUNT 3.03 MIL/MM3 (4.50-5.90); RED CELL DISTRIBUTION WIDTH 13.6 % (11.6-17.2); WHITE BLOOD COUNT 11.4 TH/MM3 (4.0-11.0)
[2016-11-13] MEDS: NS + KCL 20 MEQ INJ 1,000 ML IV SCH (19:00)
[2016-11-13 19:04] LABS: PLATELET COUNT 94 TH/MM3 (150-450)
[2016-11-13] MEDS ORDERED: fentaNYL DRIP 250 ML ONE (19:31)
[2016-11-13 19:45] VITALS: O2SAT 100
[2016-11-13 20:00] VITALS: BP 108/64; PULSE 90; RESP 15; TEMP 98.6; O2SAT 100
[2016-11-13 20:08] VITALS: O2SAT 100
[2016-11-13] MEDS ORDERED: SODIUM CHLORIDE 0.9% FLUSH 5 ML FLUSH IVF SCH (21:00)
[2016-11-13] MEDS: DOCUSATE SODIUM 100 MG CAP PO SCH (21:00)
[2016-11-13 22:00] VITALS: PULSE 80
[2016-11-13] MEDS: SODIUM CHLORIDE 0.9% FLUSH 10 ML FLUSH IV FLUSH SCH (22:25)
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
[2016-11-13] MEDS: ceFAZolin 2 GM PREMIX 50 ML IV SCH (22:46)
[2016-11-14] VITALS (18 sets, daily range): BP systolic 107–130; BP diastolic 56–69; PULSE 59–86; RESP 12–14; TEMP 98.6–103.1; O2SAT 100
[2016-11-14] MEDS: ACETAMINOPHEN 1000 MG/100 ML VIAL IV PRN (01:30)
[2016-11-14] MEDS: MANNITOL 12.5 GM/50 ML VIAL IV SCH ×2 (01:34→06:00)
[2016-11-14] MEDS ORDERED: MAGNESIUM OXIDE 400 MG TAB PO PRN (02:30)
[2016-11-14] MEDS ORDERED: DEXTROSE 50% IN WATER 50 ML VIAL(D50) IV PUSH PRN (02:30)
[2016-11-14] MEDS ORDERED: POTASSIUM PHOSPHATE INJ 30 MMOL in SODIUM CHLOR 0.9% 250 ML INJ 250 ML IV PRN (02:30)
[2016-11-14] MEDS ORDERED: RESP: ALBUTEROL 2.5 MG/IPRATROPIUM 0.5 MG NEB (PRN) INH (02:30)
[2016-11-14] MEDS ORDERED: POTASSIUM CHLOR 40 MEQ PREMIX 100 ML IV PRN ×2 (02:30)
[2016-11-14] MEDS ORDERED: MAGNESIUM SULFATE INJ 2 GM in SODIUM CHLORIDE 0.9% INJ 96 ML IV PRN (02:30)
[2016-11-14] MEDS ORDERED: POTASSIUM PHOSPHATE MONOBASIC 500 MG TAB PO/TUBE PRN (02:30)
[2016-11-14] MEDS ORDERED: POTASSIUM PHOSPHATE MONOBASIC 500 MG TAB PO PRN (02:30)
[2016-11-14] MEDS ORDERED: SODIUM PHOSPHATE INJ 30 MMOL in SODIUM CHLOR 0.9% 250 ML INJ 240 ML IV PRN (02:30)
[2016-11-14] MEDS ORDERED: MAGNESIUM SULFATE INJ 4 GM in SODIUM CHLORIDE 0.9% INJ 92 ML IV PRN (02:30)
[2016-11-14] MEDS: levETIRAcetam INJ 500 MG in SODIUM CHLORIDE 0.9% INJ 100 ML IV SCH ×2 (03:19→15:05)
[2016-11-14] MEDS: PROPOFOL 1000 MG/100 ML IV PRN ×4 (03:19→20:36)
[2016-11-14] MEDS: RESP: ALBUTEROL 2.5 MG/IPRATROPIUM 0.5 MG NEB (SCH) INH ×4 (03:34→22:21)
[2016-11-14 04:28] LABS: AUTOMATED NEUTROPHIL # 9.7 TH/MM3 (1.8-7.7); BASOPHIL % 0.1 % (0.0-2.0); HEMATOCRIT 28.5 % (39.0-51.0); HEMOGLOBIN 9.7 GM/DL (13.0-17.0); LYMPH % 8.1 % (9.0-44.0); MEAN CELL VOLUME 103.8 FL (80.0-100.0); MEAN CORPUSCULAR HEMOGLOBIN 35.5 PG (27.0-34.0); MEAN CORPUSCULAR HGB CONC 34.2 % (32.0-36.0); MEAN PLATELET VOLUME 9.3 FL (7.0-11.0); MONO % 12.8 % (0.0-8.0); MONOCYTE # 1.6 TH/MM3 (0-0.9); PLATELET COUNT 78 TH/MM3 (150-450); RED BLOOD COUNT 2.74 MIL/MM3 (4.50-5.90); RED CELL DISTRIBUTION WIDTH 13.7 % (11.6-17.2); WHITE BLOOD COUNT 12.3 TH/MM3 (4.0-11.0)
[2016-11-14 04:51] LABS: ALBUMIN 2.4 GM/DL (3.4-5.0); BICARBONATE 23.9 MEQ/L (21.0-32.0); CALCIUM 6.7 MG/DL (8.5-10.1); CREATININE 0.67 MG/DL (0.60-1.30); DIRECT BILIRUBIN ADULT 0.5 MG/DL (0.0-0.2); INDIRECT BILIRUBIN 0.3 MG/DL (0.0-0.8); TOTAL BILIRUBIN ADULT 0.8 MG/DL (0.2-1.0)
[2016-11-14 04:54] LABS: CALCIUM-PROTEIN CORRECTED 7.8 MG/DL (8.5-10.1)
[2016-11-14] MEDS: NS + KCL 20 MEQ INJ 1,000 ML IV SCH (05:09)
[2016-11-14] MEDS: INSULIN NovoLIN REGULAR SUPPLEMENTAL SCALE SQ SCH ×4 (06:00→23:45)
[2016-11-14] MEDS: ceFAZolin 2 GM PREMIX 50 ML IV SCH ×2 (06:52→14:48)
[2016-11-14] MEDS ORDERED: MANNITOL INJ 125 ML IV SCH (08:00)
[2016-11-14] MEDS: SODIUM CHLORIDE 0.9% FLUSH 10 ML FLUSH IV FLUSH SCH ×2 (08:10→19:57)
[2016-11-14] MEDS: CHLORHEXIDINE 0.12% (ORAL KIT) 15 ML CUP MT SCH ×2 (08:10→19:58)
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
[2016-11-14] MEDS ORDERED: PANTOPRAZOLE SOD 40 MG DELAYED RELEASE TAB PO SCH (09:00)
[2016-11-14] MEDS ORDERED: PANTOPRAZOLE SODIUM 40 MG VIAL IVP SCH (09:00)
[2016-11-14] MEDS: DOCUSATE SODIUM 100 MG CAP PO SCH ×2 (09:12→19:57)
[2016-11-14] MEDS: FAMOTIDINE 20 MG/2 ML VIAL IV PUSH SCH ×2 (09:12→19:57)
[2016-11-14] MEDS ORDERED: SODIUM CHLORIDE 23.4% INJ 188 MEQ in SODIUM CHLOR 0.9% 1000 ML INJ 1,000 ML IV SCH (09:30)
[2016-11-14] MEDS ORDERED: 3% SALINE INJ 500 ML IV ONE (10:30)
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
[2016-11-14 13:04] LABS: AUTOMATED NEUTROPHIL # 7.8 TH/MM3 (1.8-7.7); BASOPHIL % 0.1 % (0.0-2.0); HEMATOCRIT 25.5 % (39.0-51.0); HEMOGLOBIN 8.4 GM/DL (13.0-17.0); LYMPH % 11.8 % (9.0-44.0); LYMPHOCYTE # 1.3 TH/MM3 (1.0-4.8); MEAN CELL VOLUME 104.4 FL (80.0-100.0); MEAN CORPUSCULAR HEMOGLOBIN 34.5 PG (27.0-34.0); MEAN PLATELET VOLUME 9.1 FL (7.0-11.0); MONO % 15.9 % (0.0-8.0); MONOCYTE # 1.7 TH/MM3 (0-0.9); NEUT % 72.2 % (16.0-70.0); PLATELET COUNT 67 TH/MM3 (150-450); RED BLOOD COUNT 2.45 MIL/MM3 (4.50-5.90); RED CELL DISTRIBUTION WIDTH 13.9 % (11.6-17.2); WHITE BLOOD COUNT 10.7 TH/MM3 (4.0-11.0)
[2016-11-15] VITALS (15 sets, daily range): BP systolic 108–136; BP diastolic 49–60; PULSE 61–80; RESP 14–19; TEMP 98.9–100.8; O2SAT 99–100
[2016-11-15 00:04] LABS: BICARBONATE 23.8 MEQ/L (21.0-32.0); CALCIUM 7.3 MG/DL (8.5-10.1); CREATININE 0.55 MG/DL (0.60-1.30)
[2016-11-15 00:18] LABS: CALCIUM-PROTEIN CORRECTED 8.7 MG/DL (8.5-10.1); TOTAL PROTEIN 4.7 GM/DL (6.4-8.2)
[2016-11-15] MEDS: levETIRAcetam INJ 500 MG in SODIUM CHLORIDE 0.9% INJ 100 ML IV SCH ×2 (03:44→15:35)
[2016-11-15] MEDS: RESP: ALBUTEROL 2.5 MG/IPRATROPIUM 0.5 MG NEB (SCH) INH ×4 (04:22→20:14)
[2016-11-15] MEDS: PROPOFOL 1000 MG/100 ML IV PRN ×3 (04:35→20:55)
[2016-11-15 04:55] LABS: AUTOMATED NEUTROPHIL # 8.1 TH/MM3 (1.8-7.7); HEMATOCRIT 25.2 % (39.0-51.0); HEMOGLOBIN 8.5 GM/DL (13.0-17.0); LYMPH % 12.1 % (9.0-44.0); LYMPHOCYTE # 1.3 TH/MM3 (1.0-4.8); MEAN CELL VOLUME 104.2 FL (80.0-100.0); MEAN CORPUSCULAR HEMOGLOBIN 35.1 PG (27.0-34.0); MEAN CORPUSCULAR HGB CONC 33.6 % (32.0-36.0); MEAN PLATELET VOLUME 9.8 FL (7.0-11.0); MONO % 14.1 % (0.0-8.0); MONOCYTE # 1.6 TH/MM3 (0-0.9); NEUT % 73.8 % (16.0-70.0); PLATELET COUNT 76 TH/MM3 (150-450); RED BLOOD COUNT 2.42 MIL/MM3 (4.50-5.90); RED CELL DISTRIBUTION WIDTH 13.9 % (11.6-17.2)
[2016-11-15 05:08] LABS: ALBUMIN 2.3 GM/DL (3.4-5.0); BICARBONATE 24.6 MEQ/L (21.0-32.0); CALCIUM 7.2 MG/DL (8.5-10.1); CREATININE 0.62 MG/DL (0.60-1.30)
[2016-11-15 05:09] LABS: CALCIUM-PROTEIN CORRECTED 8.3 MG/DL (8.5-10.1); TOTAL BILIRUBIN ADULT 0.6 MG/DL (0.2-1.0)
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
[2016-11-15] MEDS: INSULIN NovoLIN REGULAR SUPPLEMENTAL SCALE SQ SCH ×3 (05:45→17:35)
[2016-11-15] MEDS: CHLORHEXIDINE 0.12% (ORAL KIT) 15 ML CUP MT SCH ×2 (08:00→20:56)
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
[2016-11-15] MEDS: SODIUM CHLORIDE 0.9% FLUSH 10 ML FLUSH IV FLUSH SCH ×2 (09:00→20:56)
[2016-11-15] MEDS: DOCUSATE SODIUM 100 MG CAP PO SCH ×2 (09:00→20:55)
[2016-11-15] MEDS: LACTULOSE SYRUP 20 GM/30 ML CUP PO SCH (09:30)
[2016-11-15] MEDS: FAMOTIDINE 20 MG/2 ML VIAL IV PUSH SCH ×2 (09:31→20:55)
[2016-11-15] MEDS: AMPICILLIN-SULBACTAM INJ 3 GM in SODIUM CHLORIDE 0.9% INJ 100 ML IV SCH ×3 (09:31→20:55)
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
[2016-11-15] MEDS: fentaNYL 2,500 MCG/NS 250 ML IV PRN (12:52)
[2016-11-15] MEDS: ACETAMINOPHEN 1000 MG/100 ML VIAL IV PRN (15:35)
[2016-11-15] MEDS: MAGNESIUM HYDROXIDE SUSP 30 ML CUP PO SCH (20:55)
[2016-11-16] VITALS (14 sets, daily range): BP systolic 110–152; BP diastolic 54–76; PULSE 74–94; RESP 16–18; TEMP 97.1–100.3; O2SAT 99–100
[2016-11-16] MEDS: INSULIN NovoLIN REGULAR SUPPLEMENTAL SCALE SQ SCH ×4 (00:16→18:00)
[2016-11-16] MEDS: RESP: ALBUTEROL 2.5 MG/IPRATROPIUM 0.5 MG NEB (SCH) INH ×4 (03:44→19:24)
[2016-11-16] MEDS: levETIRAcetam INJ 500 MG in SODIUM CHLORIDE 0.9% INJ 100 ML IV SCH ×2 (04:09→16:47)
[2016-11-16] MEDS: AMPICILLIN-SULBACTAM INJ 3 GM in SODIUM CHLORIDE 0.9% INJ 100 ML IV SCH ×4 (04:09→22:10)
--- NOTE | 2016-11-16 04:41 | RADRPT ---
EXAM DATE/TIME: 11/16/2016 03:26 [facility] COMPARISON: CHEST SINGLE AP, November 15, 2016, 4:05. INDICATIONS : Short of breath. MEDICAL HISTORY : None. SURGICAL HISTORY : None. ENCOUNTER: Initial ACUITY: 1 day PAIN SCORE: 0/10 LOCATION: Bilateral chest FINDINGS: Endotracheal tube in good position. Nasogastric tube enters stomach. Right central line in superior v justice cava. No focal consolidation or significant effusion. CONCLUSION: 1. Support apparatus in good position. No focal lung consolidation or effusion. Vance Rajan MD on November 16, 2016 at 4:37 Board Certified Radiologist. This report was verified electronically.
[2016-11-16 05:03] LABS: AUTOMATED NEUTROPHIL # 5.1 TH/MM3 (1.8-7.7); BASOPHIL % 0.1 % (0.0-2.0); EOSINOPHIL % 0.1 % (0.0-4.0); HEMATOCRIT 21.4 % (39.0-51.0); HEMOGLOBIN 7.4 GM/DL (13.0-17.0); LYMPH % 16.5 % (9.0-44.0); LYMPHOCYTE # 1.2 TH/MM3 (1.0-4.8); MEAN CELL VOLUME 104.5 FL (80.0-100.0); MEAN CORPUSCULAR HEMOGLOBIN 35.9 PG (27.0-34.0); MEAN CORPUSCULAR HGB CONC 34.3 % (32.0-36.0); MEAN PLATELET VOLUME 9.3 FL (7.0-11.0); MONO % 11.4 % (0.0-8.0); MONOCYTE # 0.8 TH/MM3 (0-0.9); NEUT % 71.9 % (16.0-70.0); PLATELET COUNT 90 TH/MM3 (150-450); RED BLOOD COUNT 2.05 MIL/MM3 (4.50-5.90); RED CELL DISTRIBUTION WIDTH 13.6 % (11.6-17.2); WHITE BLOOD COUNT 7.1 TH/MM3 (4.0-11.0)
[2016-11-16 05:56] LABS: ALBUMIN 1.9 GM/DL (3.4-5.0); BICARBONATE 25.6 MEQ/L (21.0-32.0); CALCIUM 7.4 MG/DL (8.5-10.1); CALCIUM-PROTEIN CORRECTED 8.8 MG/DL (8.5-10.1); CREATININE 0.6 MG/DL (0.60-1.30); TOTAL BILIRUBIN ADULT 0.4 MG/DL (0.2-1.0); TOTAL PROTEIN 4.6 GM/DL (6.4-8.2)
[2016-11-16] MEDS: CHLORHEXIDINE 0.12% (ORAL KIT) 15 ML CUP MT SCH ×2 (08:00→19:39)
[2016-11-16] MEDS: LACTULOSE SYRUP 20 GM/30 ML CUP PO SCH (08:27)
[2016-11-16] MEDS: FAMOTIDINE 20 MG/2 ML VIAL IV PUSH SCH ×2 (08:27→20:29)
[2016-11-16] MEDS: DOCUSATE SODIUM 100 MG CAP PO SCH ×2 (09:00→20:29)
[2016-11-16] MEDS: SODIUM CHLORIDE 0.9% FLUSH 10 ML FLUSH IV FLUSH SCH ×2 (09:00→20:29)
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
--- NOTE | 2016-11-16 10:11 | RADRPT ---
EXAM DATE/TIME: 11/16/2016 09:52 [facility] COMPARISON: CT BRAIN W/O CONTRAST, November 13, 2016, 13:11. INDICATIONS : Follow up bleed. RADIATION DOSE: 56.35 CTDIvol (mGy) MEDICAL HISTORY : Non-responsive. SURGICAL HISTORY : Non-responsive. ENCOUNTER: Subsequent ACUITY: 3 days PAIN SCALE: Non-responsive LOCATION: cranial TECHNIQUE: Multiple contiguous axial images were obtained of the head. Using automated exposure control and adj ustment of the mA and/or kV according to patient size, radiation dose was kept as low as reasonably a chievable to obtain optimal diagnostic quality images. DICOM format image data is available electro nically for review and comparison. FINDINGS: The patient has a right occipital nondisplaced skull fracture, and there has been interval left is de creased in size or hemorrhage, low attenuation and pneumocephalus are seen at this level. In addition there is a large subdural hematoma along the right occipital and temporal convexity as well as a rig ht temporal intraparenchymal hemorrhage with a small amount of surrounding edema. The subdural hemorr curtis has a maximal transverse width of 1.7 cm, and is not significantly changed in size. The right te mporal parenchymal bleed is slightly increased in size measuring 2.7 cm in transverse dimension. Ther e is a small amount of extra-axial hemorrhage in the right middle cranial fossa anteriorly consistent with subdural blood, as well as pneumocephalus in the bilateral frontal regions and bilateral fronta l subdural bleeds and subarachnoid hemorrhage greatest at the vertex. The subarachnoid blood is of in creased conspicuity from the previous study. The pneumocephalus is new. A right frontal approach vent riculostomy catheter is noted with tip terminating at the midline periventricular region. There is ef facement of the right lateral ventricle. There is a small amount of intraventricular hemorrhage in th e fourth ventricle, and subdural hemorrhage is also seen along the left temporal region unchanged. Th ere is a fracture through the right temporal bone and posterior portion of the right temporomandibula r joint identified. CONCLUSION: Interval left occipital craniectomy with pneumocephalus, intraparenchymal hemorrhage, subdural hemorr curtis and subarachnoid hemorrhage identified as above. Ventriculostomy catheter placement. Adeel Mcgarry MD on November 16, 2016 at 10:06 Board Certified Radiologist. This report was verified electronically.
[2016-11-16] MEDS: fentaNYL 2,500 MCG/NS 250 ML IV PRN (11:37)
[2016-11-16] MEDS: PROPOFOL 1000 MG/100 ML IV PRN ×2 (11:37→20:30)
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
[2016-11-16] MEDS: MAGNESIUM HYDROXIDE SUSP 30 ML CUP PO SCH (20:29)
[2016-11-17] VITALS (20 sets, daily range): BP systolic 127–150; BP diastolic 57–78; PULSE 65–85; RESP 12–18; TEMP 99.1–99.8; O2SAT 97–100
[2016-11-17] MEDS: INSULIN NovoLIN REGULAR SUPPLEMENTAL SCALE SQ SCH ×4 (00:15→17:28)
[2016-11-17] MEDS: RESP: ALBUTEROL 2.5 MG/IPRATROPIUM 0.5 MG NEB (SCH) INH ×4 (03:38→20:57)
[2016-11-17] MEDS: levETIRAcetam INJ 500 MG in SODIUM CHLORIDE 0.9% INJ 100 ML IV SCH ×2 (03:43→15:36)
[2016-11-17] MEDS: AMPICILLIN-SULBACTAM INJ 3 GM in SODIUM CHLORIDE 0.9% INJ 100 ML IV SCH ×2 (04:10→09:41)
[2016-11-17 04:39] LABS: AUTOMATED NEUTROPHIL # 5.3 TH/MM3 (1.8-7.7); BASOPHIL % 0.2 % (0.0-2.0); EOSINOPHIL # 0.1 TH/MM3 (0-0.4); EOSINOPHIL % 0.7 % (0.0-4.0); HEMATOCRIT 23.9 % (39.0-51.0); HEMOGLOBIN 8.4 GM/DL (13.0-17.0); LYMPH % 26.7 % (9.0-44.0); LYMPHOCYTE # 2.3 TH/MM3 (1.0-4.8); MEAN CELL VOLUME 97.5 FL (80.0-100.0); MEAN CORPUSCULAR HEMOGLOBIN 34.1 PG (27.0-34.0); MONO % 10.9 % (0.0-8.0); MONOCYTE # 0.9 TH/MM3 (0-0.9); NEUT % 61.5 % (16.0-70.0); PLATELET COUNT 112 TH/MM3 (150-450); RED BLOOD COUNT 2.45 MIL/MM3 (4.50-5.90); RED CELL DISTRIBUTION WIDTH 19.5 % (11.6-17.2); WHITE BLOOD COUNT 8.6 TH/MM3 (4.0-11.0)
[2016-11-17 04:58] LABS: ALBUMIN 1.7 GM/DL (3.4-5.0); BICARBONATE 29.5 MEQ/L (21.0-32.0); CALCIUM 7.1 MG/DL (8.5-10.1); CALCIUM-PROTEIN CORRECTED 8.5 MG/DL (8.5-10.1); CREATININE 0.5 MG/DL (0.60-1.30); TOTAL BILIRUBIN ADULT 0.4 MG/DL (0.2-1.0); TOTAL PROTEIN 4.5 GM/DL (6.4-8.2)
--- NOTE | 2016-11-17 06:40 | RADRPT ---
EXAM DATE/TIME: 11/17/2016 05:57 [facility] COMPARISON: CHEST SINGLE AP, November 16, 2016, 3:26. INDICATIONS : Short of breath. MEDICAL HISTORY : None. SURGICAL HISTORY : None. ENCOUNTER: Subsequent ACUITY: 4 - 6 days PAIN SCORE: Non-responsive. LOCATION: Bilateral chest FINDINGS: A single view of the chest demonstrates endotracheal tube in satisfactory position. Nasogastric tube enters stomach. Right central line in superior vena cava. Subsegmental basilar and perihilar airspace disease. CONCLUSION: 1. Support apparatus in satisfactory position. Mild perihilar and basilar dependent airspace disease slightly increased from November 16. This may represent atelectasis. Vance Rajan MD on November 17, 2016 at 6:36 Board Certified Radiologist. This report was verified electronically.
[2016-11-17] MEDS: POTASSIUM CHLOR 20 MEQ PREMIX 100 ML IV PRN ×2 (07:35→10:35)
[2016-11-17] MEDS: DOCUSATE SODIUM 100 MG CAP PO SCH ×2 (07:53→20:29)
[2016-11-17] MEDS: LACTULOSE SYRUP 20 GM/30 ML CUP PO SCH (07:53)
[2016-11-17] MEDS: FAMOTIDINE 20 MG/2 ML VIAL IV PUSH SCH ×2 (07:53→20:28)
[2016-11-17] MEDS: SODIUM CHLORIDE 0.9% FLUSH 10 ML FLUSH IV FLUSH SCH ×2 (07:53→20:28)
[2016-11-17] MEDS: CHLORHEXIDINE 0.12% (ORAL KIT) 15 ML CUP MT SCH ×2 (07:54→20:28)
[2016-11-17] MEDS: PROPOFOL 1000 MG/100 ML IV PRN ×2 (09:41→18:14)
[2016-11-17] MEDS: fentaNYL 2,500 MCG/NS 250 ML IV PRN (09:42)
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
[2016-11-17] MEDS: cefTRIAXone INJ 2,000 MG in SODIUM CHLORIDE 0.9% INJ 100 ML IV SCH (13:04)
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
[2016-11-17] MEDS ORDERED: BUMETANIDE INJ 1 MG/4 ML VIAL IV PUSH ONE (17:00)
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
[2016-11-17] MEDS: MAGNESIUM HYDROXIDE SUSP 30 ML CUP PO SCH (20:29)
[2016-11-18] VITALS (18 sets, daily range): BP systolic 119–160; BP diastolic 64–76; PULSE 50–96; RESP 14–22; TEMP 97.3–99.9; O2SAT 94–100
[2016-11-18] MEDS: PROPOFOL 1000 MG/100 ML IV PRN ×2 (02:36→09:53)
[2016-11-18] MEDS: RESP: ALBUTEROL 2.5 MG/IPRATROPIUM 0.5 MG NEB (SCH) INH ×4 (03:29→19:37)
[2016-11-18] MEDS: levETIRAcetam INJ 500 MG in SODIUM CHLORIDE 0.9% INJ 100 ML IV SCH ×2 (03:58→16:00)
[2016-11-18 04:21] LABS: AUTOMATED NEUTROPHIL # 5.6 TH/MM3 (1.8-7.7); BASOPHIL % 0.3 % (0.0-2.0); EOSINOPHIL # 0.1 TH/MM3 (0-0.4); EOSINOPHIL % 1.5 % (0.0-4.0); HEMATOCRIT 25.3 % (39.0-51.0); HEMOGLOBIN 8.5 GM/DL (13.0-17.0); LYMPH % 23.6 % (9.0-44.0); LYMPHOCYTE # 2.1 TH/MM3 (1.0-4.8); MEAN CORPUSCULAR HEMOGLOBIN 33.1 PG (27.0-34.0); MEAN CORPUSCULAR HGB CONC 33.7 % (32.0-36.0); MEAN PLATELET VOLUME 8.4 FL (7.0-11.0); MONO % 11.8 % (0.0-8.0); MONOCYTE # 1.1 TH/MM3 (0-0.9); NEUT % 62.8 % (16.0-70.0); PLATELET COUNT 151 TH/MM3 (150-450); RED BLOOD COUNT 2.58 MIL/MM3 (4.50-5.90); RED CELL DISTRIBUTION WIDTH 18.9 % (11.6-17.2)
[2016-11-18] MEDS: fentaNYL 2,500 MCG/NS 250 ML IV PRN (04:21)
[2016-11-18 04:44] LABS: BICARBONATE 29.3 MEQ/L (21.0-32.0); CALCIUM 7.4 MG/DL (8.5-10.1); CREATININE 0.52 MG/DL (0.60-1.30)
[2016-11-18] MEDS: INSULIN NovoLIN REGULAR SUPPLEMENTAL SCALE SQ SCH ×4 (05:00→18:00)
[2016-11-18 05:08] LABS: CALCIUM-PROTEIN CORRECTED 8.7 MG/DL (8.5-10.1); TOTAL PROTEIN 4.8 GM/DL (6.4-8.2)
[2016-11-18 07:10] LABS: BANDS 15 % (0-6); BASOPHILS 2 % (0-2); CORRECTED NUCLEATED RBC 1 /100 WBC (0-0); LYMPHOCYTES 15 % (9-44); MONOCYTES 4 % (0-8); NEUTROPHIL # MANUAL DIFF 6.8 TH/MM3 (1.8-7.7); NUCLEATED RED BLOOD CELL 1 (0-0); POLYS (SEG NEUTROPHILS) 60 % (16-70)
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
[2016-11-18] MEDS: CHLORHEXIDINE 0.12% (ORAL KIT) 15 ML CUP MT SCH ×2 (08:00→20:00)
[2016-11-18] MEDS: SODIUM CHLORIDE 0.9% FLUSH 10 ML FLUSH IV FLUSH SCH ×2 (09:00→20:31)
--- NOTE | 2016-11-18 09:49 | HHI.NSPN ---
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 A 1.7 cm right temporal parietal subdural hematoma. Contusions are noted in the left cerebellar hemisphere up to 5 cm in size with compression of the fourth ventricle and a contusion is noted in the right temporal lobe. Small contusion cortically in the lower left parietal lobe. He underwent emergent suboccipital decompressive craniectomy, C1 laminectomy for evacuation of cerebellar hematoma, with placement of ventriculostomy drain on 11/13/1611/14: intubated, and very well sedated. sedation lowered pt restless. EVD draining well. ICPs wnl overnight. 11/15: off propofol, remains on fentanyl drip. Moving spontaneously. ICPs stable overnight, EVD draining well. 11/16: off sedation opens eyes, moving all four extremities but not following commands. EVD draining well, ICPs remains wnl. 11/17: remains intubated and sedated. ICPs stable, EVD draining well. f/u CT Brain yesterday completed and reviewed by Dr. Grimm. 11/18: sedated on diprivan, slightly opens eyes to voice. withdraws x 4 extremities but does not follow commands. (Kathy Moctezuma) Labs, Micro, & Vital Signs Results Date Time Temp Pulse Resp B/P (MAP) Pulse Ox O2 Delivery O2 Flow Rate FiO2 11/18/16 06:00 74 11/18/16 05:18 100 30 11/18/16 04:00 30 11/18/16 04:00 74 11/18/16 04:00 99.9 68 14 160/68 (98) 100 11/18/16 02:29 100 30 11/18/16 02:00 74 11/18/16 00:00 30 11/18/16 00:00 76 11/18/16 00:00 99.9 70 16 146/64 (91) 94 11/17/16 22:00 74 11/17/16 20:57 100 30 11/17/16 20:00 99.2 70 12 131/74 (93) 97 11/17/16 20:00 30 11/17/16 20:00 72 11/17/16 18:00 85 11/17/16 16:51 99 30 11/17/16 16:00 30 11/17/16 16:00 99.2 73 16 150/78 (102) 100 11/17/16 16:00 73 11/17/16 14:00 69 11/17/16 12:00 30 11/17/16 12:00 74 11/17/16 12:00 99.2 74 14 146/77 (100) 100 11/17/16 11:40 100 30 11/17/16 10:17 99 30 11/17/16 10:00 69 Constitutional Vital Signs Date Time Temp Pulse Resp B/P (MAP) Pulse Ox O2 Delivery O2 Flow Rate FiO2 11/18/16 06:00 74 11/18/16 05:18 100 30 11/18/16 04:00 30 11/18/16 04:00 74 11/18/16 04:00 99.9 68 14 160/68 (98) 100 11/18/16 02:29 100 30 11/18/16 02:00 74 11/18/16 00:00 30 11/18/16 00:00 76 11/18/16 00:00 99.9 70 16 146/64 (91) 94 11/17/16 22:00 74 11/17/16 20:57 100 30 11/17/16 20:00 99.2 70 12 131/74 (93) 97 11/17/16 20:00 30 11/17/16 20:00 72 11/17/16 18:00 85 11/17/16 16:51 99 30 11/17/16 16:00 30 11/17/16 16:00 99.2 73 16 150/78 (102) 100 11/17/16 16:00 73 11/17/16 14:00 69 11/17/16 12:00 30 11/17/16 12:00 74 11/17/16 12:00 99.2 74 14 146/77 (100) 100 11/17/16 11:40 100 30 11/17/16 10:17 99 30 11/17/16 10:00 69 (Kathy Moctezuma) Review of Systems ROS Limitations: Clinical Condition, Intubated (Kathy Moctezuma) Physical Exam Mr. Villalta is intubated and currently sedated on propofol and fentanyl drips He was reported to open eyes, moves all four extremities off sedation, but does not follow commands. Surgical incision healing well, no signs of infection, clean and dry. Right ventriculostomy at 5 cm H20, draining well - bloody CSF. ICPs = 5 Cranial Nerves: Pupils 2 mm b/l. Conjugate gaze. Bilateral periorbital ecchymoses, conjunctival hemorrhages L>R. +Hess's sign Motor: withdraws to pain stimulation x 4. Reports was spontaneously moving all four agitated when sedation lowered. Reflexes: Trace throughout. Positive b/l Babinski. No ankle clonus. Cerebellar: cannot assess due to current clinical condition (Kathy Moctezuma) Medications Current Medications Current Medications Medications (Trade) Dose Ordered Sig/Femi Route PRN Reason Start Time Stop Time Status Last Admin Dose Admin Sodium Chloride (NS Flush) 2 ml UNSCH PRN IV FLUSH FLUSH AFTER USING IV ACCESS 11/13/16 15:00 Sodium Chloride (NS Flush) 2 ml BID IV FLUSH 11/13/16 21:00 11/17/16 20:28 Ondansetron HCl (Zofran Inj) 4 mg Q6H PRN IV NAUSEA OR VOMITING 11/13/16 15:00 Naloxone HCl (Narcan Inj) 0.4 mg UNSCH PRN IV PUSH SEE LABEL COMMENTS 11/13/16 15:00 Levetriacetam 500 mg/Sodium Chloride 105 ml @ 420 mls/hr Q12H IV 11/13/16 16:00 11/18/16 03:58 Sodium Chloride 500 ml @ 30 mls/hr UNSCH PRN IV elevated ICP 11/13/16 15:00 11/18/16 14:59 Bisacodyl (Dulcolax Supp) 10 mg DAILY PRN RECTAL CONSTIPATION 11/13/16 15:00 Docusate Sodium (Colace) 100 mg BID PO 11/13/16 21:00 11/16/16 20:29 Calcium Gluconate (Calcium Gluconate Inj) 1 gm UNSCH PRN IV SEE LABEL COMMENTS 11/13/16 15:00 Potassium Chloride 100 ml @ 50 mls/hr UNSCH PRN IV POTASSIUM LESS THAN 4 11/13/16 15:00 Magnesium Sulfate 4 gm/Sodium Chloride 108 ml @ 108 mls/hr UNSCH PRN IV MAGNESIUM LESS THAN 2 11/13/16 15:00 Morphine Sulfate (Morphine Inj) 2 mg Q2H PRN IV PUSH PAIN SCALE 1 TO 6 11/13/16 15:00 Morphine Sulfate (Morphine Inj) 4 mg Q2H PRN IV PUSH PAIN SCALE 7 TO 10 11/13/16 15:00 Acetaminophen (Tylenol) 650 mg Q4H PRN PO TEMPERATURE > 101.5 F 11/13/16 15:00 Propofol 100 ml @ 1.65 mls/hr TITRATE PRN IV SEDATION 11/13/16 20:15 11/18/16 02:36 Fentanyl Citrate 250 ml @ 5 mls/hr TITRATE PRN IV Sedation 11/13/16 23:00 11/18/16 04:21 Acetaminophen (Ofirmev 1000 Mg/ 100 ml Inj) 1,000 mg Q6H PRN IV TEMP > 101 11/14/16 01:30 11/15/16 15:35 Famotidine (Pepcid Inj) 20 mg Q12H IV PUSH 11/14/16 09:00 11/17/16 20:28 Dextrose (D50w (Vial) Inj) 25 ml UNSCH PRN IV PUSH HYPOGLYCEMIA-SEE COMMENTS 11/14/16 02:30 Insulin Human Regular (NovoLIN R SUPPLEMENTAL SCALE) 1 Q6HR SQ 11/14/16 06:00 11/17/16 06:38 Chlorhexidine Gluconate (Peridex 0.12% Liq) 15 ml BID@08,20 MT 11/14/16 08:00 11/18/16 08:00 Magnesium Oxide (Mag-Ox) 800 mg UNSCH PRN PO For Magnesium 1.2 - 1.6 mg/dL 11/14/16 02:30 Magnesium Sulfate 4 gm/Sodium Chloride 100 ml @ 50 mls/hr UNSCH PRN IV For Magnesium 0.9 - 1.1 mg/dL 11/14/16 02:30 Magnesium Sulfate 2 gm/Sodium Chloride 100 ml @ 50 mls/hr UNSCH PRN IV For Magnesium 1.2 - 1.6 mg/dL 11/14/16 02:30 Potassium Chloride 100 ml @ 50 mls/hr Q2H PRN IV For Potassium 2.8 - 3.2 mEq/L 11/14/16 02:30 11/17/16 10:35 Potassium Chloride 100 ml @ 50 mls/hr Q2H PRN IV For Potassium 3.3 - 3.5 mEq/L 11/14/16 02:30 Potassium Chloride 100 ml @ 50 mls/hr Q2H PRN IV For Potassium 2.8 - 3.2 mEq/L 11/14/16 02:30 Potassium Chloride 100 ml @ 25 mls/hr UNSCH PRN IV For Potassium 3.3 - 3.5 mEq/L 11/14/16 02:30 11/18/16 04:50 Potassium Phosphate (K-Phos) 2,000 mg Q4H PRN PO For Phosphorus < 2.5 mg/dL 11/14/16 02:30 Potassium Phosphate (K-Phos) 2,000 mg UNSCH PRN PO/TUBE SEE LABEL COMMENTS 11/14/16 02:30 Potassium Phosphate 30 mmol/ Sodium Chloride 260 ml @ 42 mls/hr UNSCH PRN IV SEE LABEL COMMENTS 11/14/16 02:30 Sodium Phosphate 30 mmol/Sodium Chloride 250 ml @ 42 mls/hr UNSCH PRN IV For Phosphorus < 2.5 mg/dL 11/14/16 02:30 Albuterol/ Ipratropium (Duoneb Neb) 1 ampule Q2HR NEB PRN INH WHEEZING 11/14/16 02:30 Magnesium Hydroxide (Milk Of Magnesia Liq) 30 ml HS PO 11/15/16 21:00 11/16/16 20:29 Lactulose (Lactulose Liq) 30 ml DAILY PO 11/15/16 09:00 11/17/16 07:53 Albuterol/ Ipratropium (Duoneb Neb) 1 ampule Q6HR NEB INH 11/17/16 16:00 11/18/16 03:29 Ceftriaxone Sodium 2000 mg/ Sodium Chloride 100 ml @ 200 mls/hr Q24H IV 11/17/16 13:00 11/17/16 13:04 Propranolol HCl (Inderal) 20 mg Q12HR PO 11/18/16 09:45 UNV Labetalol HCl (Trandate Inj) 10 mg Q4H PRN IV PUSH SYS BP GREATER THAN 160 MMHG 11/18/16 09:45 UNV (Kathy Moctezuma) Medical Decision Making MDM Remarks Middle age 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 A 1.7 cm right temporal parietal subdural hematoma and contusions. Left cerebellar contusions with compression of the fourth ventricle he underwent emergent suboccipital decompressive craniectomy, C1 laminectomy for evacuation of cerebellar hematoma, with placement of ventriculostomy drain on 11/13/16 f/u CT Brain 11/16 stable right temporal subdural hematoma without significant midline shift, improved left cerebellar hematoma with stable post-surgical changes (Kathy Moctezuma) Plan Plan Remarks cont ventriculostomy draining at 5 cm H20, ICP monitoring, sedation weaning as tolerated critical care mgt, cont hyperosmotic therapy, cont daily dressing changes, monitor wound, sutures dc 11/27/16 cont close neuro checks follow up neurological exam cont nonchemical dvt prophylaxis in view of ICH Protonix for stress ulcer proph, Keppra for sz prophylaxis (Kathy Moctezuma) Attending Statement The exam, history, and the medical decision-making described in the above note were completed with the assistance of the mid-level provider. I reviewed and agree with the findings presented. I attest that I had a [id number] encounter with the patient on the same day, and personally performed and documented my assessment and findings in the medical record. (Stu Grimm MD) Kathy Moctezuma Nov 18, 2016 09:49 Stu Grimm MD Nov 21, 2016 09:36
[2016-11-18] MEDS: FAMOTIDINE 20 MG/2 ML VIAL IV PUSH SCH ×2 (09:53→20:30)
[2016-11-18] MEDS: DOCUSATE SODIUM 100 MG CAP PO SCH ×2 (09:53→20:31)
[2016-11-18] MEDS: LACTULOSE SYRUP 20 GM/30 ML CUP PO SCH (09:53)
[2016-11-18] MEDS: PROPRANOLOL HCL 20 MG TAB PO SCH ×2 (10:00→20:31)
[2016-11-18] MEDS: oxyCODONE/ACETAMINOPHEN 5 MG/325 MG TAB PO SCH ×3 (10:00→20:30)
[2016-11-18] MEDS: LABETALOL HCL 100 MG/20 ML VIAL IV PUSH PRN (10:20)
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
[2016-11-18] MEDS: cefTRIAXone INJ 2,000 MG in SODIUM CHLORIDE 0.9% INJ 100 ML IV SCH (12:43)
--- NOTE | 2016-11-18 13:40 | HHI.CCPN ---
Subjective Brief History 61-year-old male found in the apartment face down with massive injuries to the head brought in as priority 1 trauma alert and resuscitated. He is taken immediately to CT scan after resuscitation. He is found to have massive intracranial injuries including skull fracture, bleeding in the right cerebellar hemisphere, compression of the flow of the cerebrospinal fluid, hemorrhages in the cerebral area and some air. He also has a large subdural hematoma on the right. The patient is taken immediately to the operating room and he will come to the ICU after the decompression. Discussed this with Dr. Grimm. 24 Hour Review/Hospital Course 11/14/16 Patient underwent craniotomy and evacuation of the right posterior fossa hematoma In addition patient has a tear in the transfer sinus which is now clotted off Patient is now any ICU and remains on neuroprotective measures including Propofol/fentanyl 3% saline with sodium around 155 mEq per liter [facility] [place] Coma Scale remains 3-4 ICP 12 mmHg and controllable Centra perfusion pressure has been adequate without any administration of vasopressors based on measurements of mean arterial pressure 11/15/16 Patient is neurologically somewhat improved and [place] Coma Scale is about 6-7 Patient doesn't follow commands however he opens his eyes and moves all 4 extremities spontaneously This is a significant improvement in last 24 hours Remains off propofol Sodium adequate and with normal ICP hypertonic saline has been discontinued as well Repeat CT scan of the brain tomorrow 11/16/16 Patient with severe brain injuries on repeat CT scan he is residual subdural and subarachnoid hemorrhage intraparenchymal hemorrhages and brain contusions Moves all 4 extremities when now sedation indication [place] Coma Scale around 5 Patient remains on neuroprotective measures including propofol and fentanyl ICP 8-12 mmHg 11/17/16 Neurologic status unchanged On sedation vacation patient is moving all 4 extremities but doesn't open eyes or tracs ICP remains low around 8-12 mmHg Patient remains on small dose propofol and fentanyl for pain Will start on antihypertensive some further decrease the propofol 11/18/16 sedation holiday-open eyes,moving all 4 extremities ICP/CPP-wnl propofol/fentanyl Objective Vital Signs Date Time Temp Pulse Resp B/P (MAP) Pulse Ox O2 Delivery O2 Flow Rate FiO2 11/18/16 12:00 30 11/18/16 12:00 99.4 59 14 119/70 (86) 100 Intake and Output 11/18/16 11/18/16 11/19/16 08:00 16:00 00:00 Intake Total 398 ml 158 ml Output Total 1591 ml Balance -1193 ml 158 ml Result Diagram: 11/18/1639911/18/16399 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
[2016-11-18] MEDS ORDERED: MAGN400S PO (14:43)
[2016-11-18] MEDS ORDERED: DOCU1CAP39 PO (14:43)
--- NOTE | 2016-11-18 18:32 | PD.CONS ---
HPI Service Rehabilitation Medicine Consult Requested By [facility] trauma service Reason for Consult Comprehensive rehabilitation evaluation. Primary Care Physician Unknown History of Present Illness Chuy Briseno is a 61-year-old male admitted [facility] 11/13/16 after being found down at home by his family. CT the head surgical fracture, subdural hematoma, left cerebellar hemispheric hemorrhagic contusion, right temporal and left parietal contusions. He underwent left suboccipital craniotomy with evacuation of cerebellar hemorrhage with ventriculostomy placement. He was intubated and is noted to have aspiration pneumonitis. Review of Systems ROS Limitations: Clinical Condition, Intubated, Altered Mental Status Past Family Social History Allergies: Coded Allergies: No Known Allergies (Unverified , 11/13/16) Past Medical History Unable to obtain Past Surgical History Unable to obtain Current Medications Current Medications Medications (Trade) Dose Ordered Sig/Femi Route Start Time Stop Time Status Last Admin (NS Flush) 2 ml UNSCH PRN IV FLUSH 11/13/16 15:00 (NS Flush) 2 ml BID IV FLUSH 11/13/16 21:00 11/17/16 20:28 (Zofran Inj) 4 mg Q6H PRN IV 11/13/16 15:00 (Narcan Inj) 0.4 mg UNSCH PRN IV PUSH 11/13/16 15:00 Levetriacetam 500 mg/Sodium Chloride 105 ml @ 420 mls/hr Q12H IV 11/13/16 16:00 11/18/16 16:00 (Dulcolax Supp) 10 mg DAILY PRN RECTAL 11/13/16 15:00 (Colace) 100 mg BID PO 11/13/16 21:00 11/18/16 09:53 (Calcium Gluconate Inj) 1 gm UNSCH PRN IV 11/13/16 15:00 Potassium Chloride 100 ml @ 50 mls/hr UNSCH PRN IV 11/13/16 15:00 Magnesium Sulfate 4 gm/Sodium Chloride 108 ml @ 108 mls/hr UNSCH PRN IV 11/13/16 15:00 (Morphine Inj) 2 mg Q2H PRN IV PUSH 11/13/16 15:00 (Morphine Inj) 4 mg Q2H PRN IV PUSH 11/13/16 15:00 (Tylenol) 650 mg Q4H PRN PO 11/13/16 15:00 Propofol 100 ml @ 1.65 mls/hr TITRATE PRN IV 11/13/16 20:15 11/18/16 09:53 Fentanyl Citrate 250 ml @ 5 mls/hr TITRATE PRN IV 11/13/16 23:00 11/18/16 04:21 (Ofirmev 1000 Mg/ 100 ml Inj) 1,000 mg Q6H PRN IV 11/14/16 01:30 11/15/16 15:35 (Pepcid Inj) 20 mg Q12H IV PUSH 11/14/16 09:00 11/18/16 09:53 (D50w (Vial) Inj) 25 ml UNSCH PRN IV PUSH 11/14/16 02:30 (NovoLIN R SUPPLEMENTAL SCALE) 1 Q6HR SQ 11/14/16 06:00 11/18/16 12:00 (Peridex 0.12% Liq) 15 ml BID@08,20 MT 11/14/16 08:00 11/18/16 08:00 (Mag-Ox) 800 mg UNSCH PRN PO 11/14/16 02:30 Magnesium Sulfate 4 gm/Sodium Chloride 100 ml @ 50 mls/hr UNSCH PRN IV 11/14/16 02:30 Magnesium Sulfate 2 gm/Sodium Chloride 100 ml @ 50 mls/hr UNSCH PRN IV 11/14/16 02:30 Potassium Chloride 100 ml @ 50 mls/hr Q2H PRN IV 11/14/16 02:30 11/17/16 10:35 Potassium Chloride 100 ml @ 50 mls/hr Q2H PRN IV 11/14/16 02:30 Potassium Chloride 100 ml @ 50 mls/hr Q2H PRN IV 11/14/16 02:30 Potassium Chloride 100 ml @ 25 mls/hr UNSCH PRN IV 11/14/16 02:30 11/18/16 04:50 (K-Phos) 2,000 mg Q4H PRN PO 11/14/16 02:30 (K-Phos) 2,000 mg UNSCH PRN PO/TUBE 11/14/16 02:30 Potassium Phosphate 30 mmol/ Sodium Chloride 260 ml @ 42 mls/hr UNSCH PRN IV 11/14/16 02:30 Sodium Phosphate 30 mmol/Sodium Chloride 250 ml @ 42 mls/hr UNSCH PRN IV 11/14/16 02:30 (Duoneb Neb) 1 ampule Q2HR NEB PRN INH 11/14/16 02:30 (Milk Of Magnesia Liq) 30 ml HS PO 11/15/16 21:00 11/16/16 20:29 (Lactulose Liq) 30 ml DAILY PO 11/15/16 09:00 11/18/16 09:53 (Duoneb Neb) 1 ampule Q6HR NEB INH 11/17/16 16:00 11/18/16 15:33 Ceftriaxone Sodium 2000 mg/ Sodium Chloride 100 ml @ 200 mls/hr Q24H IV 11/17/16 13:00 11/18/16 12:43 (Inderal) 20 mg Q12HR PO 11/18/16 10:00 11/18/16 10:00 (Trandate Inj) 10 mg Q4H PRN IV PUSH 11/18/16 10:00 11/18/16 10:20 (Percocet 5-325 Mg) 1 tab Q6H PO 11/18/16 10:00 11/18/16 16:00 Family History Unable to obtain Social History Patient lives in [place], [place] Exam I&O / VS 11/18/16 11/18/16 11/19/16 15:00 23:00 07:00 Intake Total 258 ml 422 ml Output Total 689 ml Balance 258 ml -267 ml Intake IV Total 258 ml 242 ml Tube Feeding 80 ml Other 100 ml Output Urine Total 575 ml Drainage Total 114 ml # Bowel Movements 0 Vital Signs Date Time Temp Pulse Resp B/P (MAP) Pulse Ox O2 Delivery O2 Flow Rate FiO2 11/18/16 18:00 56 11/18/16 16:00 99.5 64 14 160/64 (96) 100 11/18/16 16:00 64 11/18/16 16:00 30 11/18/16 15:41 100 30 11/18/16 14:00 50 11/18/16 13:36 100 30 11/18/16 12:00 30 11/18/16 12:00 99.4 59 14 119/70 (86) 100 11/18/16 12:00 59 11/18/16 11:00 14 11/18/16 10:22 100 30 11/18/16 10:00 62 11/18/16 08:00 99.6 68 14 151/66 (94) 100 11/18/16 08:00 30 11/18/16 08:00 68 11/18/16 06:00 74 11/18/16 05:18 100 30 11/18/16 04:00 30 11/18/16 04:00 74 11/18/16 04:00 99.9 68 14 160/68 (98) 100 11/18/16 02:29 100 30 11/18/16 02:00 74 11/18/16 00:00 30 11/18/16 00:00 76 11/18/16 00:00 99.9 70 16 146/64 (91) 94 11/17/16 22:00 74 11/17/16 20:57 100 30 11/17/16 20:00 99.2 70 12 131/74 (93) 97 11/17/16 20:00 30 11/17/16 20:00 72 General: Intubated, Sedated, No acute distress, Other (a G-tube in place) Respiratory: Lungs CTA, BS equal, Coarse breath sounds Gastrointestinal: Positive Bowel Sounds, Non-Distended Cardiovascular: Normal rate, Regular Rhythm Musculoskeletal: Other (SCDs in place) Orientation: unable to asses Self, unable to asses Place, unable to asses Time , unable to asses Situation Neurologic: Pupils (pupils 2 mm and reactive), Other DTRs: Normal (trace throughout) Clonus: Negative Assessment and Plan Diagnosis: (1) Traumatic brain injury ICD Codes: S06.9X9A - Unspecified intracranial injury with loss of consciousness of unspecified duration, initial encounter Status: Acute Qualifiers: Encounter type: initial encounter Assessment 1. Traumatic brain injury status post left suboccipital craniotomy for evacuation of cerebellar hemorrhage with ventriculostomy placement. Now intubated and sedated. [place] level I 2. Aspiration pneumonitis Plan 1. PT is providing range of motion. Progress to mobilization as medical neurological status allows 2. OT following and dependent for ADLs 3. Appreciate neuropsychology evaluation follow-up 4. SCDs in place for DVT prophylaxis 5. Reposition every 2 hours to protect skin and monitor for breakdown 6. Will follow in conjunction with case management regarding rehabilitation needs at discharge. Anticipate patient will need ongoing inpatient care. Thank you for this consult Sandhya Martínez MD Nov 18, 2016 18:32
[2016-11-18] MEDS: MAGNESIUM HYDROXIDE SUSP 30 ML CUP PO SCH (20:30)
[2016-11-19] VITALS (18 sets, daily range): BP systolic 150–160; BP diastolic 64–77; PULSE 54–74; RESP 14–19; TEMP 97.5–101.1; O2SAT 100
[2016-11-19] MEDS: INSULIN NovoLIN REGULAR SUPPLEMENTAL SCALE SQ SCH ×4 (00:07→18:00)
[2016-11-19] MEDS: PROPOFOL 1000 MG/100 ML IV PRN ×3 (00:14→19:55)
[2016-11-19] MEDS: RESP: ALBUTEROL 2.5 MG/IPRATROPIUM 0.5 MG NEB (SCH) INH ×4 (03:38→20:37)
[2016-11-19] MEDS: LABETALOL HCL 100 MG/20 ML VIAL IV PUSH PRN (03:46)
[2016-11-19] MEDS: levETIRAcetam INJ 500 MG in SODIUM CHLORIDE 0.9% INJ 100 ML IV SCH ×2 (04:00→15:00)
[2016-11-19] MEDS: oxyCODONE/ACETAMINOPHEN 5 MG/325 MG TAB PO SCH ×4 (04:19→21:01)
[2016-11-19 05:29] LABS: AUTOMATED NEUTROPHIL # 5.3 TH/MM3 (1.8-7.7); BASOPHIL % 0.4 % (0.0-2.0); EOSINOPHIL # 0.2 TH/MM3 (0-0.4); EOSINOPHIL % 1.7 % (0.0-4.0); HEMATOCRIT 25.8 % (39.0-51.0); HEMOGLOBIN 8.6 GM/DL (13.0-17.0); LYMPH % 20.2 % (9.0-44.0); LYMPHOCYTE # 1.8 TH/MM3 (1.0-4.8); MEAN CELL VOLUME 99.2 FL (80.0-100.0); MEAN CORPUSCULAR HEMOGLOBIN 33.1 PG (27.0-34.0); MEAN CORPUSCULAR HGB CONC 33.3 % (32.0-36.0); MONO % 17.2 % (0.0-8.0); MONOCYTE # 1.5 TH/MM3 (0-0.9); NEUT % 60.5 % (16.0-70.0); PLATELET COUNT 170 TH/MM3 (150-450); RED CELL DISTRIBUTION WIDTH 18.3 % (11.6-17.2); WHITE BLOOD COUNT 8.7 TH/MM3 (4.0-11.0)
[2016-11-19] MEDS: fentaNYL 2,500 MCG/NS 250 ML IV PRN (05:58)
[2016-11-19 06:01] LABS: BICARBONATE 29.8 MEQ/L (21.0-32.0); CALCIUM 7.5 MG/DL (8.5-10.1); CREATININE 0.49 MG/DL (0.60-1.30)
--- NOTE | 2016-11-19 06:53 | RADRPT ---
EXAM DATE/TIME: 11/19/2016 06:08 [place] COMPARISON: CHEST SINGLE AP, November 17, 2016, 5:57. INDICATIONS : Short of breath. MEDICAL HISTORY : None. SURGICAL HISTORY : None. ENCOUNTER: Subsequent ACUITY: 1 week PAIN SCORE: Non-responsive. LOCATION: Bilateral chest FINDINGS: A single view of the chest demonstrates endotracheal tube in good position. Nasogastric tube enters s tomach. Right central line in superior vena cava. Mild basilar dependent airspace disease. No signifi cant effusion. No pneumothorax. CONCLUSION: 1. Support apparatus unchanged. Minimal basilar dependent air space disease. Findings similar to Sept ember . Vance Rajan MD on November 19, 2016 at 6:51 Board Certified Radiologist. This report was verified electronically.
[2016-11-19 06:58] LABS: BANDS 13 % (0-6); LYMPHOCYTES 17 % (9-44); MONOCYTES 16 % (0-8); NEUTROPHIL # MANUAL DIFF 5.7 TH/MM3 (1.8-7.7); POLYS (SEG NEUTROPHILS) 53 % (16-70)
[2016-11-19] MEDS: CHLORHEXIDINE 0.12% (ORAL KIT) 15 ML CUP MT SCH ×2 (08:20→19:54)
[2016-11-19] MEDS: FAMOTIDINE 20 MG/2 ML VIAL IV PUSH SCH (08:20)
[2016-11-19] MEDS: SODIUM CHLORIDE 0.9% FLUSH 10 ML FLUSH IV FLUSH SCH ×2 (08:21→20:54)
[2016-11-19] MEDS: LACTULOSE SYRUP 20 GM/30 ML CUP PO SCH (08:21)
[2016-11-19] MEDS: PROPRANOLOL HCL 20 MG TAB PO SCH ×2 (08:21→21:00)
[2016-11-19] MEDS: DOCUSATE SODIUM 100 MG CAP PO SCH ×2 (08:21→20:53)
[2016-11-19] MEDS ORDERED: hydrALAZINE HCL 20 MG/ML VIAL IV PUSH PRN (11:00)
[2016-11-19 11:10] LABS: BILIRUBIN, URINE NEG (NEG); BLOOD, URINE MOD (NEG); GLUCOSE,URINE 70 mg/dL (NEG); KETONE, URINE TRACE mg/dL (NEG); MUCUS URINE FEW /lpf (OCC); NITRITE,URINE NEG (NEG); PH, URINE 5.5 (5.0-8.5); SQUAMOUS EPITHELIAL CELL URINE 2 /hpf (0-5); TRANSITIONAL EPI CELLS, URINE <1 /hpf; URINE COLOR YELLOW (YELLW/STRAW); URINE LEUKOCYTE ESTERASE TRACE (NEG)
--- NOTE | 2016-11-19 11:36 | HHI.PR ---
Neuropsych Emotional Emotional: UnabletoAssess: Emotional, Anxious/Fearful, Depressed/Sad, Hostile/ Resentful, Irritable/Angry/Frustrate, Labile, Constricted/Blunted Behavior Behavior: Unable to Asses: Behavior, Coping/Acceptance, Cooperative w/ Treatment, Motivation, Frustration Tolerance/[place], Impulsive/Agitated, Suicidal/ Homicidal Risk Cognitive Cognitive: Unable to Asses: Cognitive, Attention/Concentration, Confused/ Orientation, Insight/Awareness, Judgement/Problem-Solving, Memory Psychosocial Psychosocial: Intact: Psychosocial, Family/Other Adjustment, Realistic Expectation, Unable to Asses: Self-Esteem/Confidence Progress Notes/Response to Tx Contents of Sessions: Adjustment, Level of Consciousness Time with Patient: 30 minutes Premorbid psychological status Premorbid Cognitive, Emotional and Behavioral Status: [Tenuous / Stable / Unstable / Deferred / Unable to Assess] The patient has [] years of education and a [solid / sporadic] work history prior to this injury. The patient has [ no / prior] psychiatric difficulties, as described above. Substance abuse history includes []. Behavioral Reactions of Patient and Family/Support System: [Tenuous / Stable / Unstable / Deferred / Unable to Assess] The patients family is experiencing ongoing issues of adjustment given the nature of the injury, and this aspect of recovery will require ongoing monitoring. Emotional/Behavioral Status of Patient and Family/Support System: [Tenuous / Stable / Unstable / Deferred / Unable to Assess] Pertinent issues, if appropriate to this patients clinical care, are described in detail above. Maximizing acute care outcome It is recommended that the patient be monitored for emergent behavioral impulsivity as the medical condition evolves. This patients neuropathological challenges may limit their rehabilitation potential going forward, and these challenges will require specialized therapeutic skills to maximize outcome. Additionally, the patients family is experiencing ongoing issues of adjustment given the traumatic nature of the injury, and they [will need / may benefit] from ongoing psychological assistance. Anticipated Problems Ongoing areas of concern will include behavioral impulsivity, lack of insight and judgment, which is expected to improve with time and treatment. Presently , the patient [is / is not] following greater than []-step commands. Treatment Plan This clinician will continue to follow with you throughout the course of this patients rehabilitation treatment, and I will be available to meet with the patients family/support system to facilitate their understanding and the ongoing care of their family member. The goals of neuropsychological intervention shall be both educational and supportive to the family/support system as is deemed clinically appropriate. Additionally, I would recommend a referral to Dr. Boyce for ongoing patient and family adjustment issues if they are coming to [place]. Jason Banegas Level: I:No response-total assistance Impression This is a 61 year old man s/p TBI 2T probable fall. Diagnosis: (1) Major neurocognitive disorder as late effect of traumatic brain injury without behavioral disturbance Progress Note Narrative Ongoing follow-up of patient seen during daily trauma rounds. This is day 6 post injury. On sedation vacation, the patient moves and opens his eyes. His ICP/CPP are described as normal. Otherwise, he remains sedated and intubated, with a Jason level of I. I will continue to follow. Johan Pierson PhD Nov 19, 2016 11:36 am
[2016-11-19] MEDS: cefTRIAXone INJ 2,000 MG in SODIUM CHLORIDE 0.9% INJ 100 ML IV SCH (11:58)
--- NOTE | 2016-11-19 13:31 | HHI.CCPN ---
Subjective Brief History 61-year-old male found in the apartment face down with massive injuries to the head brought in as priority 1 trauma alert and resuscitated. He is taken immediately to CT scan after resuscitation. He is found to have massive intracranial injuries including skull fracture, bleeding in the right cerebellar hemisphere, compression of the flow of the cerebrospinal fluid, hemorrhages in the cerebral area and some air. He also has a large subdural hematoma on the right. The patient is taken immediately to the operating room and he will come to the ICU after the decompression. Discussed this with Dr. Grimm. 24 Hour Review/Hospital Course 11/14/16 Patient underwent craniotomy and evacuation of the right posterior fossa hematoma In addition patient has a tear in the transfer sinus which is now clotted off Patient is now any ICU and remains on neuroprotective measures including Propofol/fentanyl 3% saline with sodium around 155 mEq per liter [facility] [place] Coma Scale remains 3-4 ICP 12 mmHg and controllable Centra perfusion pressure has been adequate without any administration of vasopressors based on measurements of mean arterial pressure 11/15/16 Patient is neurologically somewhat improved and Maikel Coma Scale is about 6-7 Patient doesn't follow commands however he opens his eyes and moves all 4 extremities spontaneously This is a significant improvement in last 24 hours Remains off propofol Sodium adequate and with normal ICP hypertonic saline has been discontinued as well Repeat CT scan of the brain tomorrow 11/16/16 Patient with severe brain injuries on repeat CT scan he is residual subdural and subarachnoid hemorrhage intraparenchymal hemorrhages and brain contusions Moves all 4 extremities when now sedation indication [place] Coma Scale around 5 Patient remains on neuroprotective measures including propofol and fentanyl ICP 8-12 mmHg 11/17/16 Neurologic status unchanged On sedation vacation patient is moving all 4 extremities but doesn't open eyes or tracs ICP remains low around 8-12 mmHg Patient remains on small dose propofol and fentanyl for pain Will start on antihypertensive some further decrease the propofol 11/18/16 sedation holiday-open eyes,moving all 4 extremities ICP/CPP-wnl propofol/fentanyl 11/19/16 open eyes,moving all 4 extremities on sedation holiday ICP/CPP-controlled tolerating tube feeds started propranolol Objective Vital Signs Date Time Temp Pulse Resp B/P (MAP) Pulse Ox O2 Delivery O2 Flow Rate FiO2 11/19/16 12:00 30 11/19/16 12:00 99.7 55 14 153/77 (102) 100 Intake and Output 11/19/16 11/19/16 11/20/16 08:00 16:00 00:00 Intake Total 920 ml Output Total 711 ml Balance 209 ml Result Diagram: 11/19/165 11/19/16 041 Imaging Last 24 hours Impressions Chest X-Ray 11/19/16 0600 Signed Impressions: Service Date/Time: , November 19, 2016 06:08 - CONCLUSION: 1. Support apparatus unchanged. Minimal basilar dependent air space disease. Findings similar to November 17. 

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
[2016-11-19] MEDS: ACETAMINOPHEN 1000 MG/100 ML VIAL IV PRN (19:58)
[2016-11-19] MEDS: MAGNESIUM HYDROXIDE SUSP 30 ML CUP PO SCH (20:53)
[2016-11-19] MEDS: FAMOTIDINE 20 MG TAB PO SCH (21:01)
[2016-11-20] VITALS (19 sets, daily range): BP systolic 132–163; BP diastolic 58–78; PULSE 56–64; RESP 14–19; TEMP 99.7–101.1; O2SAT 98–100
[2016-11-20] MEDS: PROPOFOL 1000 MG/100 ML IV PRN ×3 (01:33→23:53)
[2016-11-20] MEDS: oxyCODONE/ACETAMINOPHEN 5 MG/325 MG TAB PO SCH ×4 (03:55→22:00)
[2016-11-20] MEDS: levETIRAcetam INJ 500 MG in SODIUM CHLORIDE 0.9% INJ 100 ML IV SCH ×2 (03:56→15:31)
[2016-11-20] MEDS: RESP: ALBUTEROL 2.5 MG/IPRATROPIUM 0.5 MG NEB (SCH) INH ×4 (04:21→20:53)
[2016-11-20 04:42] LABS: BASOPHIL # 0.1 TH/MM3 (0-0.2); BASOPHIL % 0.7 % (0.0-2.0); EOSINOPHIL # 0.2 TH/MM3 (0-0.4); EOSINOPHIL % 1.8 % (0.0-4.0); HEMATOCRIT 27.6 % (39.0-51.0); HEMOGLOBIN 9.6 GM/DL (13.0-17.0); LYMPH % 22.5 % (9.0-44.0); LYMPHOCYTE # 2.3 TH/MM3 (1.0-4.8); MEAN CELL VOLUME 97.7 FL (80.0-100.0); MEAN CORPUSCULAR HEMOGLOBIN 34.1 PG (27.0-34.0); MEAN CORPUSCULAR HGB CONC 34.9 % (32.0-36.0); MEAN PLATELET VOLUME 8.7 FL (7.0-11.0); MONO % 15.5 % (0.0-8.0); MONOCYTE # 1.6 TH/MM3 (0-0.9); NEUT % 59.5 % (16.0-70.0); PLATELET COUNT 228 TH/MM3 (150-450); RED BLOOD COUNT 2.82 MIL/MM3 (4.50-5.90); RED CELL DISTRIBUTION WIDTH 17.7 % (11.6-17.2); WHITE BLOOD COUNT 10.2 TH/MM3 (4.0-11.0)
[2016-11-20 05:40] LABS: BICARBONATE 26.6 MEQ/L (21.0-32.0); CALCIUM 7.4 MG/DL (8.5-10.1); CREATININE 0.43 MG/DL (0.60-1.30)
[2016-11-20 05:52] LABS: CALCIUM-PROTEIN CORRECTED 8.6 MG/DL (8.5-10.1); TOTAL PROTEIN 4.9 GM/DL (6.4-8.2)
[2016-11-20] MEDS: INSULIN NovoLIN REGULAR SUPPLEMENTAL SCALE SQ SCH ×5 (06:00→23:53)
[2016-11-20] MEDS: PROPRANOLOL HCL 20 MG TAB PO SCH ×2 (08:02→21:00)
[2016-11-20] MEDS: FAMOTIDINE 20 MG TAB PO SCH ×2 (08:02→20:25)
[2016-11-20] MEDS: LACTULOSE SYRUP 20 GM/30 ML CUP PO SCH (08:03)
[2016-11-20] MEDS: DOCUSATE SODIUM 100 MG CAP PO SCH ×2 (08:03→20:25)
[2016-11-20 08:44] LABS: BANDS 2 % (0-6); CORRECTED NUCLEATED RBC 1 /100 WBC (0-0); LYMPHOCYTES 20 % (9-44); METAMYELOCYTES 1 % (0-1); MONOCYTES 14 % (0-8); MYELOCYTES 2 % (0-0); NEUTROPHIL # MANUAL DIFF 6.6 TH/MM3 (1.8-7.7); NUCLEATED RED BLOOD CELL 1 (0-0); POLYS (SEG NEUTROPHILS) 60 % (16-70)
[2016-11-20] MEDS: SODIUM CHLORIDE 0.9% FLUSH 10 ML FLUSH IV FLUSH SCH ×2 (09:00→20:24)
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
[2016-11-20] MEDS: ACETAMINOPHEN 1000 MG/100 ML VIAL IV PRN ×2 (10:42→20:34)
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
[2016-11-20] MEDS: cefTRIAXone INJ 2,000 MG in SODIUM CHLORIDE 0.9% INJ 100 ML IV SCH (15:30)
--- NOTE | 2016-11-20 15:47 | HHI.CCPN ---
Subjective Brief History [place]: This is a 61-year-old male found in his apartment face down with massive injuries to the head brought in as priority 1 trauma alert and resuscitated. He is taken immediately to CT scan after resuscitation. He is found to have massive intracranial injuries including skull fracture, bleeding in the right cerebellar hemisphere, compression of the flow of the cerebrospinal fluid, hemorrhages in the cerebral area and some air. He also has a large subdural hematoma on the right. The patient is taken immediately to the operating room and he will come to the ICU after the decompression. Discussed this with Dr. Grimm. 24 Hour Review/Hospital Course 11/14/16 Patient underwent craniotomy and evacuation of the right posterior fossa hematoma In addition patient has a tear in the transfer sinus which is now clotted off Patient is now any ICU and remains on neuroprotective measures including Propofol/fentanyl 3% saline with sodium around 155 mEq per liter [facility] [place] Coma Scale remains 3-4 ICP 12 mmHg and controllable Centra perfusion pressure has been adequate without any administration of vasopressors based on measurements of mean arterial pressure 11/15/16 Patient is neurologically somewhat improved and Maikel Coma Scale is about 6-7 Patient doesn't follow commands however he opens his eyes and moves all 4 extremities spontaneously This is a significant improvement in last 24 hours Remains off propofol Sodium adequate and with normal ICP hypertonic saline has been discontinued as well Repeat CT scan of the brain tomorrow 11/16/16 Patient with severe brain injuries on repeat CT scan he is residual subdural and subarachnoid hemorrhage intraparenchymal hemorrhages and brain contusions Moves all 4 extremities when now sedation indication Maikel Coma Scale around 5 Patient remains on neuroprotective measures including propofol and fentanyl ICP 8-12 mmHg 11/17/16 Neurologic status unchanged On sedation vacation patient is moving all 4 extremities but doesn't open eyes or tracs ICP remains low around 8-12 mmHg Patient remains on small dose propofol and fentanyl for pain Will start on antihypertensive some further decrease the propofol 11/18/16 sedation holiday-open eyes,moving all 4 extremities ICP/CPP-wnl propofol/fentanyl 11/19/16 open eyes,moving all 4 extremities on sedation holiday ICP/CPP-controlled tolerating tube feeds started propranolol 11/20/2016 PTD: 7 Weaning sedation slowly. Opens eyes. Pt moves all extremities, but not yet to command. ICP = 1-7, He had an episode overnight were ICP increased to 16 with turning for a linen change. Discussed with daughter at bedside. (Rose Marie Brennan) Objective Vital Signs Date Time Temp Pulse Resp B/P (MAP) Pulse Ox O2 Delivery O2 Flow Rate FiO2 11/20/16 12:00 56 11/20/16 11:45 98 30 11/20/16 08:00 99.7 14 154/70 (98) Intake and Output 11/20/16 11/20/16 11/21/16 08:00 16:00 00:00 Intake Total 1050 ml Output Total 720 ml Balance 330 ml (Rose Marie Brennan) Result Diagram: 11/20/16 0430 11/20/16 0430 Imaging Last 48 hours Impressions Chest X-Ray 11/19/16 0600 Signed Impressions: Service Date/Time: , November 19, 2016 06:08 - CONCLUSION: 1. Support apparatus unchanged. Minimal basilar dependent air space disease. Findings similar to November 17. Vance Rajan MD Objective Remarks GENERAL: This is a 61-year-old male lying in bed. Sedated and mechanically ventilated. SKIN: Warm and dry. HEAD: Normocephalic. RIGHT ventriculostomy in place. EYES: PERRLA. 2mm bilaterally. Ecchymosis and swelling noted bilaterally. ENT: ETT to vent. OGT w/ tube feeding. No nasal bleeding or discharge. Mucous membranes pink and moist. NECK: Trachea midline. No JVD. CARDIOVASCULAR: Regular rate and rhythm. CM shows sinus bradycardia. RESPIRATORY: Vent. No accessory muscle use. Lungs are clear to auscultation. Breath sounds equal bilaterally. No distress or dyspnea. GASTROINTESTINAL: BS + x 4 quads. Abdomen soft, non-tender, nondistended. MUSCULOSKELETAL: Extremities without cyanosis, or edema. + peripheral pulses x 4 extremities. Warm with good capillary refill and sensation. MAEW. NEUROLOGICAL: Sedated and mechanically ventilated. Open eyes. Not following commands. (Rose Marie Brennan) Urinary Catheter Assessment Urinary Catheter: Yes Assessment to: Continue (Rose Marie Brennan) Vascular Central Line Catheter Vascular Central Line Catheter: Yes Assessment to: Continue Date of Insertion: Nov 13, 2016 Line: Central Venous Catheter Side: Right Location: Internal (Rose Marie Brennan Assessment and Plan Assessment: (1) Skull fractures ICD Code: S02.91XA - Unspecified fracture of skull, initial encounter for closed fracture Status: Acute (2) Intracranial hemorrhage ICD Code: I62.9 - Nontraumatic intracranial hemorrhage, unspecified Status: Acute (3) Major neurocognitive disorder as late effect of traumatic brain injury without behavioral disturbance ICD Code: S06.9X9S - Unspecified intracranial injury with loss of consciousness of unspecified duration, sequela; F02.80 - Dementia in other diseases classified elsewhere without behavioral disturbance Status: Acute (4) Traumatic brain injury ICD Code: S06.9X9A - Unspecified intracranial injury with loss of consciousness of unspecified duration, initial encounter Status: Acute Plan [place]: This is a 61-year-old male who was found down at home with obvious scalp laceration and raccoon eyes. GCS 5-6. Obtunded. Intubated in the ED. + Cannabis. INJURIES: Skull fx SDH (temporal and parietal) LEFT cerebral contusions (w/compression of 4th ventricle) RIGHT temporal contusion LEFT parietal lobe contusion Procedures: 11/13: Intubated in the ED 11/13: Suboccipital craniectomy Consults: CCM. Neurosurgery. Rehabilitation medicine. Neuropsych. Case management. Assessment and plan by system: NEUROLOGICAL: 11/13: Suboccipital craniectomy Sedated with propofol and fentanyl drips. Opens eyes Moves all extremities well, but not yet to command. Sedation vacations daily to assess weaning capability. Pt is sedated with a RASS score of -2 Provide analgesia for comfort and pain. Fentanyl drip. Percocet 5 mg every 6 hours. Serial neuro checks. 11/16: CT brain: Stable post OR - Interval left occipital craniectomy with pneumocephalus, intraparenchymal hemorrhage, subdural hemorrhage and subarachnoid hemorrhage EVD - Ventriculoscopy ICP = 1-7. Patient did have a spike ICP = 16 this a.m. with linen change. Seizure precautions. Seizure prophylaxis - IV Keppra 3% saline - discontinued NA = 141 HOB elevated 30 degrees - + peripheral pulses x 4 extremities. CARDIOVASCULAR: HR - 56-60 sinus bradycardia BP - 154/70 Continually monitor for hemodynamic instability (shock and hypotension). BP meds - propanolol 20 BID. Hydralazine 10 mg q 4 hours. Volume status - +1345 Follow CMP - Electrolyte status - Electrolyte protocol - in place RESPIRATORY: 11/13: Intubated in the ED Vent settings- 500 / 14 / 30% / 1.0 / +5 Sats = 98% Increase PEEP carefully (to assist in oxygenation by recruiting alveoli.) Weaning - will attempt CPAP trials once ICPs are better controlled and patient is more awake and following commands Consider tracheostomy if patient unable to wean from the ventilator. O2 Sats - Monitor for hypoxemia Goal of end tital CO2 = 35-40 Follow ABGs - Lung sounds - CTA Pulmonary toilet - L&S. Bronchodilators - Breathing treatments - duonebs. Chest X-Ray results - minimal bibasilar dependent airspace disease. Stable. Sputum culture - echoli Antibiotics - Rocephin IV VAP protocol in place - Labs tomorrow Chest X-Ray tomorrow GASTROINTESTINAL: Diet - Jevity at 60 ml/hr. TF - minimal residuals Bowel sounds - + x 4 quads Bowel regimen - Colace. MOM. Lactulose. Bisacodyl NC LBM - 11/18 RENAL / URINARY: Strict I&O - +1345 BUN / creat 18 / 0.43 Maintain charles for strict diagnosis - Charles in place to bedside drainage bag Urine culture - neg ENDOCRINE: BGM - 133 via am labs SSI HEMATOLOGY: H&H 9.6 / 27.6 Continue to monitor for signs and symptoms of bleeding. Evaluate need for IVC filter. Transfuse for < 7.0 Monitor patient for any bleeding complications. Started Lovenox for DVT prophylaxis - okay with neurosurgery INFECTIOUS DISEASE: Follow CBC Monitor for signs and symptoms of infection: WBC - 10.2 Low grade fevers Administer antipyretics for temp as needed. IV abx: Rocephin 11/19: Urine - neg 11/15: Sputum - Ecoli 11/15: Blood - NEG 11/13: CSF - NEG Monitor for pneumonia evolution with repeat chest X-Rays as needed. Maintain vigorous aseptic care of central line to avoid blood stream infections. Consider a consult to ID for further management IV LINES: 9/22: Ventric 11/13: ETT 11/13: OGT 11/13: R IJ TLC 11/13: L James [place] 11/19: Eduardo PROPHYLAXIS: VAP - chlorhexidine mouth care in place GI - Pepcid BID po DVT - Mechanical VTE with SCDs. Chemical management with Lovenox 30 BID SQ - cleared and okay with neurosurgery SKIN: Warm and dry Bilateral orbital ecchymosis and edema. ACTIVITY: Status - BR PT and OT ordered. CASE MANAGEMENT: Consulted for assist with DC planning. Placement - disposition - TBD. EMOTIONAL SUPPORT: Provided to patient and family. Plan of care discussed. Questions answered to the best of my knowledge. This patient is currently critically ill and injured and being managed in the ICU. The trauma team will round each day, and evaluate plan of care on a daily basis. (Rose Marie Brennan) Remarks She was seen and examined with the nurse practitioner, agree with assessment and plan able to move all extremities opening his eyes spontaneously CPP stay in satisfactory level Tolerating tube feeds Cleared by neurosurgery for Lovenox start spontaneous breathing trials and spontaneous awakening trials (Ayesha Brown MD) Problem Qualifiers (1) Skull fractures: Qualified Codes: S02.91XA - Unspecified fracture of skull, initial encounter for closed fracture (2) Traumatic brain injury: Qualified Codes: S06.9X9A - Unspecified intracranial injury with loss of consciousness of unspecified duration, initial encounter Rose Marie Brennan Nov 20, 2016 15:47 Ayesha Brown MD Nov 20, 2016 20:23
[2016-11-20] MEDS: CHLORHEXIDINE 0.12% (ORAL KIT) 15 ML CUP MT SCH ×2 (15:52→20:24)
[2016-11-20] MEDS ORDERED: SODIUM CHLORIDE 23.4% INJ 240 MEQ in SYRINGE/BAG 1 EA IV STA (16:47)
[2016-11-20] MEDS: 3% SALINE INJ 500 ML IV PRN (17:07)
[2016-11-20] MEDS: fentaNYL 2,500 MCG/NS 250 ML IV PRN (18:01)
[2016-11-20] MEDS: MAGNESIUM HYDROXIDE SUSP 30 ML CUP PO SCH (20:25)
[2016-11-20] MEDS: ENOXAPARIN SODIUM 30 MG/0.3 ML SYRINGE SQ SCH (20:25)
[2016-11-21] VITALS (17 sets, daily range): BP systolic 104–136; BP diastolic 53–73; PULSE 60–91; RESP 14–16; TEMP 99.9–103.3; O2SAT 99–100
[2016-11-21] MEDS: LABETALOL HCL 100 MG/20 ML VIAL IV PUSH PRN ×2 (02:15→06:28)
[2016-11-21] MEDS: RESP: ALBUTEROL 2.5 MG/IPRATROPIUM 0.5 MG NEB (SCH) INH ×2 (04:30→09:23)
[2016-11-21] MEDS: oxyCODONE/ACETAMINOPHEN 5 MG/325 MG TAB PO SCH ×4 (04:56→21:20)
[2016-11-21] MEDS: levETIRAcetam INJ 500 MG in SODIUM CHLORIDE 0.9% INJ 100 ML IV SCH ×2 (04:56→16:46)
--- NOTE | 2016-11-21 05:40 | RADRPT ---
EXAM DATE/TIME: 11/21/2016 04:04 [place] COMPARISON: CHEST SINGLE AP, November 19, 2016, 6:08. INDICATIONS : Trauma, short of breath. MEDICAL HISTORY : None. SURGICAL HISTORY : None. ENCOUNTER: Subsequent ACUITY: 1 week PAIN SCORE: Non-responsive. LOCATION: Bilateral chest FINDINGS: A single view of the chest demonstrates endotracheal tube in good position. Nasogastric tube in stoma ch. Right central line in superior vena cava. Minimal basilar airspace disease slightly improved from November 19. CONCLUSION: 1. Slight improvement in basilar airspace disease since November 19. Support apparatus unchanged. Vance Rajan MD on November 21, 2016 at 5:36 Board Certified Radiologist. This report was verified electronically.
[2016-11-21] MEDS: INSULIN NovoLIN REGULAR SUPPLEMENTAL SCALE SQ SCH ×3 (06:00→18:00)
[2016-11-21 06:16] LABS: AUTOMATED NEUTROPHIL # 7.3 TH/MM3 (1.8-7.7); BASOPHIL # 0.1 TH/MM3 (0-0.2); BASOPHIL % 0.5 % (0.0-2.0); EOSINOPHIL # 0.1 TH/MM3 (0-0.4); EOSINOPHIL % 1.1 % (0.0-4.0); HEMATOCRIT 27.3 % (39.0-51.0); HEMOGLOBIN 9.3 GM/DL (13.0-17.0); LYMPH % 14.9 % (9.0-44.0); LYMPHOCYTE # 1.7 TH/MM3 (1.0-4.8); MEAN CELL VOLUME 99.3 FL (80.0-100.0); MEAN CORPUSCULAR HEMOGLOBIN 33.7 PG (27.0-34.0); MEAN CORPUSCULAR HGB CONC 33.9 % (32.0-36.0); MEAN PLATELET VOLUME 9.1 FL (7.0-11.0); MONO % 17.9 % (0.0-8.0); NEUT % 65.6 % (16.0-70.0); PLATELET COUNT 245 TH/MM3 (150-450); RED BLOOD COUNT 2.75 MIL/MM3 (4.50-5.90); RED CELL DISTRIBUTION WIDTH 17.5 % (11.6-17.2); WHITE BLOOD COUNT 11.1 TH/MM3 (4.0-11.0)
[2016-11-21 06:41] LABS: ALBUMIN 1.8 GM/DL (3.4-5.0); AST (GOT) 40 U/L (15-37); BICARBONATE 27.3 MEQ/L (21.0-32.0); BLOOD UREA NITROGEN 19 MG/DL (7-18); CALCIUM 7.5 MG/DL (8.5-10.1); CHLORIDE 112 MEQ/L (98-107); CREATININE 0.51 MG/DL (0.60-1.30); GLOMERULAR FILTRATION RATE 166 ML/MIN (>89); GLUCOSE,RANDOM 127 MG/DL (74-106); SODIUM (NA) 145 MEQ/L (136-145)
[2016-11-21 06:43] LABS: ALT (GPT) 38 U/L (12-78)
[2016-11-21 06:46] LABS: ALKALINE PHOSPHATASE 78 U/L (45-117); TOTAL BILIRUBIN ADULT 0.4 MG/DL (0.2-1.0); TOTAL PROTEIN 4.9 GM/DL (6.4-8.2)
[2016-11-21] MEDS: PROPOFOL 1000 MG/100 ML IV PRN ×3 (06:49→22:39)
[2016-11-21 07:59] LABS: BANDS 13 % (0-6); CORRECTED NUCLEATED RBC 1 /100 WBC (0-0); LYMPHOCYTES 11 % (9-44); METAMYELOCYTES 1 % (0-1); MONOCYTES 16 % (0-8); MYELOCYTES 6 % (0-0); NEUTROPHIL # MANUAL DIFF 8.1 TH/MM3 (1.8-7.7); NUCLEATED RED BLOOD CELL 1 (0-0); POLYS (SEG NEUTROPHILS) 53 % (16-70)
[2016-11-21 08:00] LABS: POLYCHROMASIA 2.6 % (0.0-1.9)
[2016-11-21] MEDS: CHLORHEXIDINE 0.12% (ORAL KIT) 15 ML CUP MT SCH ×2 (08:57→21:19)
[2016-11-21] MEDS: SODIUM CHLORIDE 0.9% FLUSH 10 ML FLUSH IV FLUSH SCH ×2 (08:57→21:19)
[2016-11-21] MEDS: LACTULOSE SYRUP 20 GM/30 ML CUP PO SCH (08:58)
[2016-11-21] MEDS: DOCUSATE SODIUM 100 MG CAP PO SCH ×2 (08:58→21:00)
[2016-11-21] MEDS: PROPRANOLOL HCL 20 MG TAB PO SCH ×2 (08:59→21:20)
[2016-11-21] MEDS: ENOXAPARIN SODIUM 30 MG/0.3 ML SYRINGE SQ SCH ×2 (08:59→21:20)
[2016-11-21] MEDS: FAMOTIDINE 20 MG TAB PO SCH ×2 (08:59→21:20)
--- NOTE | 2016-11-21 12:45 | HHI.CCPN ---
Subjective Brief History [place]: This is a 61-year-old male found in his apartment face down with massive injuries to the head brought in as priority 1 trauma alert and resuscitated. He is taken immediately to CT scan after resuscitation. He is found to have massive intracranial injuries including skull fracture, bleeding in the right cerebellar hemisphere, compression of the flow of the cerebrospinal fluid, hemorrhages in the cerebral area and some air. He also has a large subdural hematoma on the right. The patient is taken immediately to the operating room and he will come to the ICU after the decompression. Discussed this with Dr. Grimm. 24 Hour Review/Hospital Course 11/14/16 Patient underwent craniotomy and evacuation of the right posterior fossa hematoma In addition patient has a tear in the transfer sinus which is now clotted off Patient is now any ICU and remains on neuroprotective measures including Propofol/fentanyl 3% saline with sodium around 155 mEq per liter [facility] [place] Coma Scale remains 3-4 ICP 12 mmHg and controllable Centra perfusion pressure has been adequate without any administration of vasopressors based on measurements of mean arterial pressure 11/15/16 Patient is neurologically somewhat improved and Maikel Coma Scale is about 6-7 Patient doesn't follow commands however he opens his eyes and moves all 4 extremities spontaneously This is a significant improvement in last 24 hours Remains off propofol Sodium adequate and with normal ICP hypertonic saline has been discontinued as well Repeat CT scan of the brain tomorrow 11/16/16 Patient with severe brain injuries on repeat CT scan he is residual subdural and subarachnoid hemorrhage intraparenchymal hemorrhages and brain contusions Moves all 4 extremities when now sedation indication Maikel Coma Scale around 5 Patient remains on neuroprotective measures including propofol and fentanyl ICP 8-12 mmHg 11/17/16 Neurologic status unchanged On sedation vacation patient is moving all 4 extremities but doesn't open eyes or tracs ICP remains low around 8-12 mmHg Patient remains on small dose propofol and fentanyl for pain Will start on antihypertensive some further decrease the propofol 11/18/16 sedation holiday-open eyes,moving all 4 extremities ICP/CPP-wnl propofol/fentanyl 11/19/16 open eyes,moving all 4 extremities on sedation holiday ICP/CPP-controlled tolerating tube feeds started propranolol 11/20/2016 PTD: 7 Weaning sedation slowly. Opens eyes. Pt moves all extremities, but not yet to command. ICP = 1-7, He had an episode overnight were ICP increased to 16 with turning for a linen change. Discussed with daughter at bedside. 11/21/16 No change in neurologic status On sedation vacation patient moves all 4 extremities but doesn't follow any commands and does not track ICP remains low Withdrawal of hypertonic saline resulted in increase it of intracranial pressure so this has been restarted Neuroprotective measures including Propofol/fentanyl Hypertonic saline at 3% 20 cc an hour At this point there is no where to go as far as decreasing any of these and we' ll just leave everything is a distal tomorrow and then try to decrease hypertonic saline again Objective Vital Signs Date Time Temp Pulse Resp B/P (MAP) Pulse Ox O2 Delivery O2 Flow Rate FiO2 11/21/16 09:16 100 30 11/21/16 06:00 66 11/21/16 04:00 100.4 14 136/60 (85) Intake and Output 11/21/16 11/21/16 11/22/16 08:00 16:00 00:00 Intake Total 781 ml Output Total 829 ml Balance -48 ml Result Diagram: 11/21/16 0530 11/21/16 1122 Other Results Microbiology Date/Time Source Procedure Growth Status 11/19/16 10:42 Urine Catheterized Urine Urine Culture - Final NO GROWTH IN 48 HOURS. Complete Laboratory Tests Test 11/21/16 05:20 Blood Gas Puncture Site LEATHA Blood Gas Patient Temperature 98.6 Blood Gas HCO3 25 mmol/L (22-26) Blood Gas Base Excess 0.6 mmol/L (-2-2) Blood Gas Oxygen Saturation 94 % (90-100) Arterial Blood pH 7.41 (7.380-7.420) Arterial Blood Partial Pressure CO2 40 mmHg (38-42) Arterial Blood Partial Pressure O2 84 mmHg (61-120) Arterial Blood Oxygen Content 11.8 Vol % (12.0-20.0) Arterial Blood Carboxyhemoglobin 1.4 % (0-4) Arterial Blood Methemoglobin 0.9 % (0-2) Blood Gas Hemoglobin 8.8 G/DL (12.0-16.0) Oxygen Delivery Device VENTILATOR Blood Gas Ventilator Setting PRVC14/500/1.0/+5 Blood Gas Inspired Oxygen 30 % Imaging Last 24 hours Impressions Chest X-Ray 11/21/16 0600 Signed Impressions: Service Date/Time: Monday, November 21, 2016 04:04 - CONCLUSION: 1. Slight improvement in basilar airspace disease since November 19. Support apparatus unchanged. Vance Rajan MD Exam [employer] No change in neurologic status On sedation vacation patient moves all 4 extremities but doesn't follow any commands and does not track ICP remains low Withdrawal of hypertonic saline resulted in increase it of intracranial pressure so this has been restarted Neuroprotective measures including Propofol/fentanyl Hypertonic saline at 3% 20 cc an hour At this point there is no where to go as far as decreasing any of these and we' ll just leave everything is a distal tomorrow and then try to decrease hypertonic saline again Hemodynamic/Cardiac Hemodynamically intact Pulmonary/Respiratory Bilateral breath sounds full ventilatory support at all the patient drops his own breaths as well Abdomen/GI Nutrition Abdomen soft enteral feeds tolerated Renal/I&O Renal function preserved sodium 146 mEq per liter Vascular Central Line Catheter Date of Insertion: Nov 13, 2016 Line: Central Venous Catheter Side: Right Location: Internal Assessment and Plan Assessment: (1) Skull fractures ICD Code: S02.91XA - Unspecified fracture of skull, initial encounter for closed fracture Status: Acute (2) Intracranial hemorrhage ICD Code: I62.9 - Nontraumatic intracranial hemorrhage, unspecified Status: Acute (3) Major neurocognitive disorder as late effect of traumatic brain injury without behavioral disturbance ICD Code: S06.9X9S - Unspecified intracranial injury with loss of consciousness of unspecified duration, sequela; F02.80 - Dementia in other diseases classified elsewhere without behavioral disturbance Status: Acute (4) Traumatic brain injury ICD Code: S06.9X9A - Unspecified intracranial injury with loss of consciousness of unspecified duration, initial encounter Status: Acute Plan [place]: This is a 61-year-old male who was found down at home with obvious scalp laceration and raccoon eyes. GCS 5-6. Obtunded. Intubated in the ED. + Cannabis. INJURIES: Skull fx SDH (temporal and parietal) LEFT cerebral contusions (w/compression of 4th ventricle) RIGHT temporal contusion LEFT parietal lobe contusion Procedures: 11/13: Intubated in the ED 11/13: Suboccipital craniectomy Consults: [facility]. Neurosurgery. Rehabilitation medicine. Neuropsych. Case management. Assessment and plan by system: NEUROLOGICAL: 11/13: Suboccipital craniectomy Sedated with propofol and fentanyl drips. Opens eyes Moves all extremities well, but not yet to command. Sedation vacations daily to assess weaning capability. Pt is sedated with a RASS score of -2 Provide analgesia for comfort and pain. Fentanyl drip. Percocet 5 mg every 6 hours. Serial neuro checks. 11/16: CT brain: Stable post OR - Interval left occipital craniectomy with pneumocephalus, intraparenchymal hemorrhage, subdural hemorrhage and subarachnoid hemorrhage EVD - Ventriculoscopy ICP = 1-7. Patient did have a spike ICP = 16 this a.m. with linen change. Seizure precautions. Seizure prophylaxis - IV Keppra 3% saline - discontinued NA = 141 HOB elevated 30 degrees - + peripheral pulses x 4 extremities. CARDIOVASCULAR: HR - 56-60 sinus bradycardia BP - 154/70 Continually monitor for hemodynamic instability (shock and hypotension). BP meds - propanolol 20 BID. Hydralazine 10 mg q 4 hours. Volume status - +1345 Follow CMP - Electrolyte status - Electrolyte protocol - in place RESPIRATORY: 11/13: Intubated in the ED Vent settings- 500 / 14 / 30% / 1.0 / +5 Sats = 98% Increase PEEP carefully (to assist in oxygenation by recruiting alveoli.) Weaning - will attempt CPAP trials once ICPs are better controlled and patient is more awake and following commands Consider tracheostomy if patient unable to wean from the ventilator. O2 Sats - Monitor for hypoxemia Goal of end tital CO2 = 35-40 Follow ABGs - Lung sounds - CTA Pulmonary toilet - L&S. Bronchodilators - Breathing treatments - duonebs. Chest X-Ray results - minimal bibasilar dependent airspace disease. Stable. Sputum culture - echoli Antibiotics - Rocephin IV VAP protocol in place - Labs tomorrow Chest X-Ray tomorrow GASTROINTESTINAL: Diet - Jevity at 60 ml/hr. TF - minimal residuals Bowel sounds - + x 4 quads Bowel regimen - Colace. MOM. Lactulose. Bisacodyl NE LBM - 11/18 RENAL / URINARY: Strict I&O - +1345 BUN / creat 18 / 0.43 Maintain charles for strict diagnosis - Charles in place to bedside drainage bag Urine culture - neg ENDOCRINE: BGM - 133 via am labs SSI HEMATOLOGY: H&H 9.6 / 27.6 Continue to monitor for signs and symptoms of bleeding. Evaluate need for IVC filter. Transfuse for < 7.0 Monitor patient for any bleeding complications. Started Lovenox for DVT prophylaxis - okay with neurosurgery INFECTIOUS DISEASE: Follow CBC Monitor for signs and symptoms of infection: WBC - 10.2 Low grade fevers Administer antipyretics for temp as needed. IV abx: Rocephin 11/19: Urine - neg 11/15: Sputum - Ecoli 11/15: Blood - NEG 11/13: CSF - NEG Monitor for pneumonia evolution with repeat chest X-Rays as needed. Maintain vigorous aseptic care of central line to avoid blood stream infections. Consider a consult to ID for further management IV LINES: 11/13: Ventric 11/13: ETT 11/13: OGT 11/13: R IJ TLC 11/13: L Rad [place] 11/19: Charles PROPHYLAXIS: VAP - chlorhexidine mouth care in place GI - Pepcid BID po DVT - Mechanical VTE with SCDs. Chemical management with Lovenox 30 BID SQ - cleared and okay with neurosurgery SKIN: Warm and dry Bilateral orbital ecchymosis and edema. ACTIVITY: Status - BR PT and OT ordered. CASE MANAGEMENT: Consulted for assist with DC planning. Placement - disposition - TBD. EMOTIONAL SUPPORT: Provided to patient and family. Plan of care discussed. Questions answered to the best of my knowledge. This patient is currently critically ill and injured and being managed in the ICU. The trauma team will round each day, and evaluate plan of care on a daily basis. Attestation Continue current care Depending on ICP Will try to decrease hypertonic saline tomorrow again Critical care time 38 minutes Problem Qualifiers (1) Skull fractures: Qualified Codes: S02.91XA - Unspecified fracture of skull, initial encounter for closed fracture (2) Traumatic brain injury: Qualified Codes: S06.9X9A - Unspecified intracranial injury with loss of consciousness of unspecified duration, initial encounter Tayler Hitchcock MD Nov 21, 2016 12:45
[2016-11-21] MEDS: cefTRIAXone INJ 2,000 MG in SODIUM CHLORIDE 0.9% INJ 100 ML IV SCH (13:07)
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
--- NOTE | 2016-11-21 14:18 | HHI.NSPN ---
History Interval History Interval History Middle age male severe TBI, his CT Brain on arrival showed right occipital skull fracture. A 1.7 cm right temporal parietal subdural hematoma. Contusions are noted in the left cerebellar hemisphere up to 5 cm in size with compression of the fourth ventricle and a contusion is noted in the right temporal lobe. Small contusion cortically in the lower left parietal lobe. He underwent emergent suboccipital decompressive craniectomy, C1 laminectomy for evacuation of cerebellar hematoma, with placement of ventriculostomy drain on 11/13/1611/14: intubated, and very well sedated. sedation lowered pt restless. EVD draining well. ICPs wnl overnight. 11/15: off propofol, remains on fentanyl drip. Moving spontaneously. ICPs stable overnight, EVD draining well. 11/16: off sedation opens eyes, moving all four extremities but not following commands. EVD draining well, ICPs remains wnl. 11/17: remains intubated and sedated. ICPs stable, EVD draining well. f/u CT Brain yesterday completed and reviewed by Dr. Grimm. 11/18: sedated on diprivan, slightly opens eyes to voice. withdraws x 4 extremities but does not follow commands. 11/19: when sedation lowered, opens eyes and withdraws x 4, placed back on sedation for blood pressure control. 11/20: intubated, sedated. EVD draning well, ICPs as high as 10 overnight. nursing reports ?weaker left side today. 11/21: intubated, sedated. No events overnight reported. Exam Results Vital Signs Date Time Temp Pulse Resp B/P (MAP) Pulse Ox O2 Delivery O2 Flow Rate FiO2 11/21/16 14:00 61 11/21/16 12:00 30 11/21/16 12:00 100 11/21/16 12:00 100.0 14 111/53 (72) Intake and Output 11/21/16 11/21/16 11/22/16 08:00 16:00 00:00 Intake Total 781 ml 98 ml Output Total 829 ml Balance -48 ml 98 ml Physical Examination Mr. Villalta is intubated and currently well sedated on propofol and fentanyl drips He was reported to open eyes, moves all four extremities, nursing reports ?left side weaker today, but does not follow commands for accurate testing Surgical incision healing well, no signs of infection, clean and dry. Right ventriculostomy at 5 cm H20, draining well - CSF remains bloody. ICPs currently 0 Cranial Nerves: Pupils 2 mm b/l. Conjugate gaze. Bilateral periorbital ecchymoses, conjunctival hemorrhages L>R - improving. Motor: very minimal response to pain, currently well sedated. Reflexes: Trace throughout. Positive b/l Babinski. No ankle clonus. Cerebellar: cannot assess due to current clinical condition Lab, Micro, Other Results Last Impressions Chest X-Ray 11/21/16 0600 Signed Impressions: Service Date/Time: Monday, November 21, 2016 04:04 - CONCLUSION: 1. Slight improvement in basilar airspace disease since November 19. Support apparatus unchanged. Vance Rajan MD Head CT 11/16/16 0931 Signed Impressions: Service Date/Time: Wednesday, November 16, 2016 09:52 - CONCLUSION: Interval left occipital craniectomy with pneumocephalus, intraparenchymal hemorrhage, subdural hemorrhage and subarachnoid hemorrhage identified as above. Ventriculostomy catheter placement. Adeel Mcgarry MD Maxillofacial CT 11/13/16 1316 Signed Impressions: Service Date/Time: Sunday, November 13, 2016 13:11 - CONCLUSION: Air-fluid level with admixture of air and fluid in the left sphenoid sinus compartment. Otherwise negative. Acute fracture is not identified. Yariel Odell MD Thoracic Spine CT 11/13/16 1311 Signed Impressions: Service Date/Time: Sunday, November 13, 2016 13:15 - CONCLUSION: No fracture or subluxation. Bobby Rasmussen MD Lumbar Spine CT 11/13/16 1311 Signed Impressions: Service Date/Time: Sunday, November 13, 2016 13:15 - CONCLUSION: 1. No acute fracture. Spinal canal and neural foramen appear to be adequate throughout. 2. Dextroscoliosis of the lumbar spine with mild associated degenerative changes 3. Diverticular disease of the sigmoid without diverticulitis Aftab Cramer MD Chest CT 9/22/17 1311 Signed Impressions: Service Date/Time: Sunday, November 13, 2016 13:17 - CONCLUSION: 1. Negative CT scan of the thorax. Chuy Fitzpatrick MD Cervical Spine CT 11/13/161310 Signed Impressions: Service Date/Time: Sunday, November 13, 2016 13:13 - CONCLUSION: 1. No acute fracture the cervical spine identified. There are degenerative changes as above. 2. There is fracture of the right side of the occipital bone. There is subdural hematoma in the posterior fossa on the right and intraparenchymal hemorrhage within the left cerebellar hemisphere. This was assessed by CT imaging of the brain. Chuy Fitzpatrick MD Abdomen/Pelvis CT 11/13/161310 Signed Impressions: Service Date/Time: Sunday, November 13, 2016 13:17 - CONCLUSION: Disproportionate dilatation of small bowel in the mid and upper abdomen relatively: Most consistent with ileus pattern. Surgical absence of the gallbladder with 2 cysts in the right lobe of the liver. Uncomplicated diverticuli of the sigmoid colon. 3 cm right testicle epididymal cyst.. Yariel Odell MD Current Medications Medications (Trade) Dose Ordered Sig/Femi Route PRN Reason Start Time Stop Time Status Last Admin Dose Admin Sodium Chloride (NS Flush) 2 ml UNSCH PRN IV FLUSH FLUSH AFTER USING IV ACCESS 11/13/16 15:00 Sodium Chloride (NS Flush) 2 ml BID IV FLUSH 11/13/16 21:00 11/19/16 08:21 Ondansetron HCl (Zofran Inj) 4 mg Q6H PRN IV NAUSEA OR VOMITING 11/13/16 15:00 Naloxone HCl (Narcan Inj) 0.4 mg UNSCH PRN IV PUSH SEE LABEL COMMENTS 11/13/16 15:00 Levetriacetam 500 mg/Sodium Chloride 105 ml @ 420 mls/hr Q12H IV 11/13/16 16:00 11/21/16 04:56 Bisacodyl (Dulcolax Supp) 10 mg DAILY PRN RECTAL CONSTIPATION 11/13/16 15:00 Docusate Sodium (Colace) 100 mg BID PO 11/13/16 21:00 11/20/16 20:25 Calcium Gluconate (Calcium Gluconate Inj) 1 gm UNSCH PRN IV SEE LABEL COMMENTS 11/13/16 15:00 Potassium Chloride 100 ml @ 50 mls/hr UNSCH PRN IV POTASSIUM LESS THAN 4 11/13/16 15:00 Magnesium Sulfate 4 gm/Sodium Chloride 108 ml @ 108 mls/hr UNSCH PRN IV MAGNESIUM LESS THAN 2 11/13/16 15:00 Morphine Sulfate (Morphine Inj) 2 mg Q2H PRN IV PUSH PAIN SCALE 1 TO 6 11/13/16 15:00 Morphine Sulfate (Morphine Inj) 4 mg Q2H PRN IV PUSH PAIN SCALE 7 TO 10 11/13/16 15:00 Acetaminophen (Tylenol) 650 mg Q4H PRN PO TEMPERATURE > 101.5 F 11/13/16 15:00 Propofol 100 ml @ 1.65 mls/hr TITRATE PRN IV SEDATION 11/13/16 20:15 11/21/16 06:49 Fentanyl Citrate 250 ml @ 5 mls/hr TITRATE PRN IV Sedation 11/13/16 23:00 11/20/16 18:01 Dextrose (D50w (Vial) Inj) 25 ml UNSCH PRN IV PUSH HYPOGLYCEMIA-SEE COMMENTS 11/14/16 02:30 Insulin Human Regular (NovoLIN R SUPPLEMENTAL SCALE) 1 Q6HR SQ 11/14/16 06:00 11/21/16 13:04 Chlorhexidine Gluconate (Peridex 0.12% Liq) 15 ml BID@08,20 MT 11/14/16 08:00 11/21/16 08:57 Magnesium Oxide (Mag-Ox) 800 mg UNSCH PRN PO For Magnesium 1.2 - 1.6 mg/dL 11/14/16 02:30 Magnesium Sulfate 4 gm/Sodium Chloride 100 ml @ 50 mls/hr UNSCH PRN IV For Magnesium 0.9 - 1.1 mg/dL 11/14/16 02:30 Magnesium Sulfate 2 gm/Sodium Chloride 100 ml @ 50 mls/hr UNSCH PRN IV For Magnesium 1.2 - 1.6 mg/dL 11/14/16 02:30 Potassium Chloride 100 ml @ 50 mls/hr Q2H PRN IV For Potassium 2.8 - 3.2 mEq/L 11/14/16 02:30 11/17/16 10:35 Potassium Chloride 100 ml @ 50 mls/hr Q2H PRN IV For Potassium 3.3 - 3.5 mEq/L 11/14/16 02:30 Potassium Chloride 100 ml @ 50 mls/hr Q2H PRN IV For Potassium 2.8 - 3.2 mEq/L 11/14/16 02:30 Potassium Chloride 100 ml @ 25 mls/hr UNSCH PRN IV For Potassium 3.3 - 3.5 mEq/L 11/14/16 02:30 11/18/16 04:50 Potassium Phosphate (K-Phos) 2,000 mg Q4H PRN PO For Phosphorus < 2.5 mg/dL 11/14/16 02:30 Potassium Phosphate (K-Phos) 2,000 mg UNSCH PRN PO/TUBE SEE LABEL COMMENTS 11/14/16 02:30 Potassium Phosphate 30 mmol/ Sodium Chloride 260 ml @ 42 mls/hr UNSCH PRN IV SEE LABEL COMMENTS 11/14/16 02:30 Sodium Phosphate 30 mmol/Sodium Chloride 250 ml @ 42 mls/hr UNSCH PRN IV For Phosphorus < 2.5 mg/dL 11/14/16 02:30 Albuterol/ Ipratropium (Duoneb Neb) 1 ampule Q2HR NEB PRN INH WHEEZING 11/14/16 02:30 Magnesium Hydroxide (Milk Of Magnesia Liq) 30 ml HS PO 11/15/16 21:00 11/20/16 20:25 Lactulose (Lactulose Liq) 30 ml DAILY PO 11/15/16 09:00 11/20/16 08:03 Albuterol/ Ipratropium (Duoneb Neb) 1 ampule Q6HR NEB INH 11/17/16 16:00 11/21/16 09:23 Ceftriaxone Sodium 2000 mg/ Sodium Chloride 100 ml @ 200 mls/hr Q24H IV 11/17/16 13:00 11/21/16 13:07 Propranolol HCl (Inderal) 20 mg Q12HR PO 11/18/16 10:00 11/21/16 08:59 Labetalol HCl (Trandate Inj) 10 mg Q4H PRN IV PUSH SYS BP GREATER THAN 160 MMHG 11/18/16 10:00 11/21/16 06:28 Oxycodone/ Acetaminophen (Percocet 5-325 Mg) 1 tab Q6H PO 11/18/16 10:00 11/21/16 09:02 Hydralazine HCl (Apresoline Inj) 10 mg Q4H PRN IV PUSH HTN 11/19/16 11:00 Famotidine (Pepcid) 20 mg BID PO 11/19/16 21:00 11/21/16 08:59 Enoxaparin Sodium (Lovenox Inj) 30 mg Q12H SQ 11/20/16 21:00 11/21/16 08:59 Sodium Chloride 500 ml @ 20 mls/hr UNSCH PRN IV ICP 11/20/16 16:30 11/25/16 16:29 11/20/16 17:07 Laboratory Tests Test 11/13/16 12:50 11/13/16 14:31 11/13/16 20:40 11/13/16 22:20 Bedside Hemoglobin 14.6 G/DL Bedside Hematocrit 43.0 % Prothrombin Time 11.7 SEC Prothromb Time International Ratio 1.1 RATIO Activated Partial Thromboplast Time 25.7 SEC Bedside Sodium 135 MMOL/L Bedside Potassium 4.3 MMOL/L Bedside Chloride 96 MMOL/L Bedside Blood Urea Nitrogen 11 MG/DL Bedside Creatinine 0.7 MG/DL Bedside Glucose 203 MG/DL Ethyl Alcohol Level LESS THAN 3 MG/DL CSF Volume (Tube 1) 2.0 ML CSF Supernatant Color (tube 1) CSF Gross Blood (Tube 1) CSF WBC (Tube 1) 439 /MM3 CSF RBC (Tube 1) 66321 /MM3 CSF Neutrophils 91 % CSF Lymphocytes 6 % CSF Monocytes 2 % CSF Eosinophils 1 % CSF Glucose 146 MG/DL CSF Total Protein 163.7 MG/DL Nasal Screen MRSA (PCR) MRSA NOT DETECTED Urine Opiates Screen NEG Urine Barbiturates Screen NEG Urine Amphetamines Screen NEG Urine Benzodiazepines Screen NEG Urine Cocaine Screen NEG Urine Cannabinoids Screen POS Test 11/14/16 04:05 11/14/16 12:30 11/18/16 04:00 11/19/16 10:42 Blood Urea Nitrogen 11 MG/DL Creatinine 0.67 MG/DL Random Glucose 149 MG/DL Total Protein 5.0 GM/DL Albumin 2.4 GM/DL Calcium Level 6.7 MG/DL Alkaline Phosphatase 45 U/L Aspartate Amino Transf (AST/SGOT) 92 U/L Alanine Aminotransferase (ALT/SGPT) 68 U/L Total Bilirubin 0.8 MG/DL Direct Bilirubin 0.5 MG/DL Sodium Level 137 MEQ/L Potassium Level 4.0 MEQ/L Chloride Level 106 MEQ/L Carbon Dioxide Level 23.9 MEQ/L Indirect Bilirubin 0.3 MG/DL Fibrinogen 257 mg/dL Basophils % 2 % Urine Color YELLOW Urine Turbidity HAZY Urine pH 5.5 Urine Specific [place]far[place] 1.038 Urine Protein 30 mg/dL Urine Glucose (UA) 70 mg/dL Urine Ketones TRACE mg/dL Urine Occult Blood MOD Urine Nitrite NEG Urine Bilirubin NEG Urine Urobilinogen 2.0 MG/DL Urine Leukocyte Esterase TRACE Urine RBC 54 /hpf Urine WBC 8 /hpf Urine Squamous Epithelial Cells 2 /hpf Urine Transitional Epithelial Cells <1 /hpf Urine Mucus FEW /lpf Microscopic Urinalysis Comment CATH-CULTURE IND Test 11/20/16 04:30 11/20/16 22:30 11/21/16 05:20 11/21/16 05:30 Eosinophils % 1 % Protein Corrected Calcium 8.6 MG/DL Serum Osmolality 305 MOSM/KG Blood Gas Puncture Site LEATHA Blood Gas Patient Temperature 98.6 Blood Gas HCO3 25 mmol/L Blood Gas Base Excess 0.6 mmol/L Blood Gas Oxygen Saturation 94 % Arterial Blood pH 7.41 Arterial Blood Partial Pressure CO2 40 mmHg Arterial Blood Partial Pressure O2 84 mmHg Arterial Blood Oxygen Content 11.8 Vol % Arterial Blood Carboxyhemoglobin 1.4 % Arterial Blood Methemoglobin 0.9 % Blood Gas Hemoglobin 8.8 G/DL Oxygen Delivery Device VENTILATOR Blood Gas Ventilator Setting PRVC14/500/1.0/+5 Blood Gas Inspired Oxygen 30 % White Blood Count 11.1 TH/MM3 Red Blood Count 2.75 MIL/MM3 Hemoglobin 9.3 GM/DL Hematocrit 27.3 % Mean Corpuscular Volume 99.3 FL Mean Corpuscular Hemoglobin 33.7 PG Mean Corpuscular Hemoglobin Concent 33.9 % Red Cell Distribution Width 17.5 % Platelet Count 245 TH/MM3 Mean Platelet Volume 9.1 FL Neutrophils (%) (Auto) 65.6 % Lymphocytes (%) (Auto) 14.9 % Monocytes (%) (Auto) 17.9 % Eosinophils (%) (Auto) 1.1 % Basophils (%) (Auto) 0.5 % Neutrophils # (Auto) 7.3 TH/MM3 Lymphocytes # (Auto) 1.7 TH/MM3 Monocytes # (Auto) 2.0 TH/MM3 Eosinophils # (Auto) 0.1 TH/MM3 Basophils # (Auto) 0.1 TH/MM3 CBC Comment AUTO DIFF Differential Total Cells Counted 100 Neutrophils % (Manual) 53 % Band Neutrophils % 13 % Lymphocytes % 11 % Monocytes % 16 % Neutrophils # (Manual) 8.1 TH/MM3 Metamyelocytes 1 % Myelocytes 6 % Nucleated Red Blood Cells 1 /100 WBC Differential Comment FINAL DIFF MANUAL Platelet Estimate NORMAL Platelet Morphology Comment NORMAL Polychromasia 2.6 % Blood Urea Nitrogen 19 MG/DL Creatinine 0.51 MG/DL Random Glucose 127 MG/DL Total Protein 4.9 GM/DL Albumin 1.8 GM/DL Calcium Level 7.5 MG/DL Alkaline Phosphatase 78 U/L Aspartate Amino Transf (AST/SGOT) 40 U/L Alanine Aminotransferase (ALT/SGPT) 38 U/L Total Bilirubin 0.4 MG/DL Sodium Level 145 MEQ/L Potassium Level 4.4 MEQ/L Chloride Level 112 MEQ/L Carbon Dioxide Level 27.3 MEQ/L Anion Gap 6 MEQ/L Estimat Glomerular Filtration Rate 166 ML/MIN Test 11/21/16 11:22 Sodium Level 146 MEQ/L Medical Decision Making Impression and Plan A/P: Middle age 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 A 1.7 cm right temporal parietal subdural hematoma and contusions. Left cerebellar contusions with compression of the fourth ventricle he underwent emergent suboccipital decompressive craniectomy, C1 laminectomy for evacuation of cerebellar hematoma, with placement of ventriculostomy drain on 11/13/16 f/u CT Brain 11/16 stable right temporal subdural hematoma without significant midline shift, improved left cerebellar hematoma with stable post-surgical changes Plan Plan Plan Remarks cont ventriculostomy draining at 5 cm H20 with ICP monitoring, cont sedation weaning as tolerated cont critical care mgt, cont mechanical vent support cont daily dressing changes, monitor wound, sutures dc 11/27/16 cont close neuro checks follow up neurological exam cont nonchemical dvt prophylaxis in view of ICH Protonix for stress ulcer proph, Keppra for sz prophylaxis continue current care (Kathy Moctezuma) Inpatient MDM Attending Statement The exam, history, and the medical decision-making described in the above note were completed with the assistance of the mid-level provider. I reviewed and agree with the findings presented. I attest that I had a [id number] encounter with the patient on the same day, and personally performed and documented my assessment and findings in the medical record. (Stu Grimm MD) Sandoval West MD Nov 21, 2016 14:18
[2016-11-21] MEDS: MAGNESIUM HYDROXIDE SUSP 30 ML CUP PO SCH (21:00)
[2016-11-22] VITALS (16 sets, daily range): BP systolic 110–180; BP diastolic 58–82; PULSE 56–86; RESP 14–22; TEMP 99.1–100.9; O2SAT 100
[2016-11-22] MEDS: levETIRAcetam INJ 500 MG in SODIUM CHLORIDE 0.9% INJ 100 ML IV SCH ×2 (03:45→15:10)
[2016-11-22] MEDS: oxyCODONE/ACETAMINOPHEN 5 MG/325 MG TAB PO SCH ×2 (03:45→09:34)
[2016-11-22] MEDS: fentaNYL 2,500 MCG/NS 250 ML IV PRN (04:06)
[2016-11-22 05:16] LABS: AUTOMATED NEUTROPHIL # 6.5 TH/MM3 (1.8-7.7); BASOPHIL # 0.1 TH/MM3 (0-0.2); BASOPHIL % 0.5 % (0.0-2.0); EOSINOPHIL # 0.1 TH/MM3 (0-0.4); HEMATOCRIT 25.2 % (39.0-51.0); HEMOGLOBIN 8.4 GM/DL (13.0-17.0); LYMPH % 22.1 % (9.0-44.0); LYMPHOCYTE # 2.4 TH/MM3 (1.0-4.8); MEAN CELL VOLUME 100.3 FL (80.0-100.0); MEAN CORPUSCULAR HEMOGLOBIN 33.6 PG (27.0-34.0); MEAN CORPUSCULAR HGB CONC 33.5 % (32.0-36.0); MEAN PLATELET VOLUME 9.4 FL (7.0-11.0); MONOCYTE # 1.8 TH/MM3 (0-0.9); NEUT % 59.4 % (16.0-70.0); PLATELET COUNT 226 TH/MM3 (150-450); RED BLOOD COUNT 2.51 MIL/MM3 (4.50-5.90); RED CELL DISTRIBUTION WIDTH 18.1 % (11.6-17.2); WHITE BLOOD COUNT 10.9 TH/MM3 (4.0-11.0)
--- NOTE | 2016-11-22 05:40 | RADRPT ---
EXAM DATE/TIME: 11/22/2016 03:55 [facility] COMPARISON: CT THORAX W CONTRAST, November 13, 2016, 13:17. INDICATIONS : Respiratory failure post trauma MEDICAL HISTORY : None. SURGICAL HISTORY : None. ENCOUNTER: Subsequent ACUITY: 1 week PAIN SCORE: Non-responsive. LOCATION: Bilateral chest FINDINGS: A single view of the chest demonstrates right central lines vena cava. Endotracheal tube in good posi tion. Nasogastric tube enters stomach. Bilateral mostly basilar airspace disease slightly increased f rom November 21. No pneumothorax. CONCLUSION: 1. Support apparatus unchanged. Slight increase in basilar airspace disease since November 21. Vance Rajan MD on November 22, 2016 at 5:37 Board Certified Radiologist. This report was verified electronically.
[2016-11-22] MEDS: PROPOFOL 1000 MG/100 ML IV PRN ×2 (05:42→18:37)
[2016-11-22] MEDS: INSULIN NovoLIN REGULAR SUPPLEMENTAL SCALE SQ SCH ×4 (05:42→17:45)
[2016-11-22 06:00] LABS: ALBUMIN 1.7 GM/DL (3.4-5.0); AST (GOT) 44 U/L (15-37); BLOOD UREA NITROGEN 20 MG/DL (7-18); CALCIUM 7.5 MG/DL (8.5-10.1); CHLORIDE 113 MEQ/L (98-107); CREATININE 0.43 MG/DL (0.60-1.30); GLOMERULAR FILTRATION RATE 202 ML/MIN (>89); GLUCOSE,RANDOM 108 MG/DL (74-106); SODIUM (NA) 146 MEQ/L (136-145)
[2016-11-22] MEDS: 3% SALINE INJ 500 ML IV PRN (06:00)
[2016-11-22 06:04] LABS: ALKALINE PHOSPHATASE 70 U/L (45-117); ALT (GPT) 37 U/L (12-78); TOTAL BILIRUBIN ADULT 0.4 MG/DL (0.2-1.0); TOTAL PROTEIN 4.9 GM/DL (6.4-8.2)
[2016-11-22 06:30] LABS: BASOPHILS 1 % (0-2); CORRECTED NUCLEATED RBC 2 /100 WBC (0-0); LYMPHOCYTES 17 % (9-44); MONOCYTES 6 % (0-8); MYELOCYTES 3 % (0-0); NUCLEATED RED BLOOD CELL 2 (0-0); PLASMA CELLS 2 % (0-0); POLYS (SEG NEUTROPHILS) 69 % (16-70); PROMYELOCYTES 1 % (0-0)
[2016-11-22] MEDS: SODIUM CHLORIDE 0.9% FLUSH 10 ML FLUSH IV FLUSH SCH ×2 (08:22→21:27)
[2016-11-22] MEDS: CHLORHEXIDINE 0.12% (ORAL KIT) 15 ML CUP MT SCH ×2 (08:22→21:27)
[2016-11-22] MEDS: PROPRANOLOL HCL 20 MG TAB PO SCH (08:23)
[2016-11-22] MEDS: ENOXAPARIN SODIUM 30 MG/0.3 ML SYRINGE SQ SCH ×2 (08:23→21:26)
[2016-11-22] MEDS: DOCUSATE SODIUM 100 MG CAP PO SCH ×2 (08:23→21:00)
[2016-11-22] MEDS: LACTULOSE SYRUP 20 GM/30 ML CUP PO SCH (08:23)
[2016-11-22] MEDS: FAMOTIDINE 20 MG TAB PO SCH ×2 (08:23→21:26)
--- NOTE | 2016-11-22 11:56 | HHI.NSPN ---
History Interval History Interval History Middle age male severe TBI, his CT Brain on arrival showed right occipital skull fracture. A 1.7 cm right temporal parietal subdural hematoma. Contusions are noted in the left cerebellar hemisphere up to 5 cm in size with compression of the fourth ventricle and a contusion is noted in the right temporal lobe. Small contusion cortically in the lower left parietal lobe. He underwent emergent suboccipital decompressive craniectomy, C1 laminectomy for evacuation of cerebellar hematoma, with placement of ventriculostomy drain on 11/13/1611/14: intubated, and very well sedated. sedation lowered pt restless. EVD draining well. ICPs wnl overnight. 11/15: off propofol, remains on fentanyl drip. Moving spontaneously. ICPs stable overnight, EVD draining well. 11/16: off sedation opens eyes, moving all four extremities but not following commands. EVD draining well, ICPs remains wnl. 11/17: remains intubated and sedated. ICPs stable, EVD draining well. f/u CT Brain yesterday completed and reviewed by Dr. Grimm. 11/18: sedated on diprivan, slightly opens eyes to voice. withdraws x 4 extremities but does not follow commands. 11/19: when sedation lowered, opens eyes and withdraws x 4, placed back on sedation for blood pressure control. 11/20: intubated, sedated. EVD draning well, ICPs as high as 10 overnight. nursing reports ?weaker left side today. 11/21: intubated, sedated. No events overnight reported. 11/22: intubated, sedated. No events overnight reported. Exam Results Vital Signs Date Time Temp Pulse Resp B/P (MAP) Pulse Ox O2 Delivery O2 Flow Rate FiO2 11/22/16 09:38 100 30 11/22/16 06:00 60 11/22/16 04:00 100.4 14 151/70 (97) Intake and Output 11/22/16 11/22/16 11/23/16 08:00 16:00 00:00 Intake Total 1350.2 ml 33 ml Output Total 623 ml Balance 727.2 ml 33 ml Physical Examination Mr. Villalta is intubated and currently well sedated on propofol and fentanyl drips He was reported to open eyes, moves all four extremities, nursing reports ?left side weaker today, but does not follow commands for accurate testing Surgical incision healing well, no signs of infection, clean and dry. Right ventriculostomy at 5 cm H20, draining well - CSF remains bloody. ICPs currently 0 Cranial Nerves: Pupils 2 mm b/l. Conjugate gaze. Bilateral periorbital ecchymoses, conjunctival hemorrhages L>R - improving. Motor: very minimal response to pain, currently well sedated. Reflexes: Trace throughout. Positive b/l Babinski. No ankle clonus. Cerebellar: cannot assess due to current clinical condition Medical Decision Making Impression and Plan A/P: Middle age 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 A 1.7 cm right temporal parietal subdural hematoma and contusions. Left cerebellar contusions with compression of the fourth ventricle he underwent emergent suboccipital decompressive craniectomy, C1 laminectomy for evacuation of cerebellar hematoma, with placement of ventriculostomy drain on 11/13/16 f/u CT Brain 11/16 stable right temporal subdural hematoma without significant midline shift, improved left cerebellar hematoma with stable post-surgical changes Plan Plan Plan Remarks cont ventriculostomy draining at 5 cm H20 with ICP monitoring, cont sedation weaning as tolerated cont critical care mgt, cont mechanical vent support cont daily dressing changes, monitor wound, sutures dc 11/27/16 cont close neuro checks follow up neurological exam cont nonchemical dvt prophylaxis in view of ICH Protonix for stress ulcer Pa retana for sz prophylaxis continue current care Total Minutes: 17 Sandoval West MD Nov 22, 2016 11:56
[2016-11-22] MEDS: fentaNYL 50 MCG/HR PATCH T-DERMAL SCH (11:57)
[2016-11-22] MEDS: hydrALAZINE HCL 20 MG/ML VIAL IV PUSH SCH ×4 (11:58→23:00)
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
[2016-11-22] MEDS: cefTRIAXone INJ 2,000 MG in SODIUM CHLORIDE 0.9% INJ 100 ML IV SCH (13:02)
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
[2016-11-22] MEDS: METOPROLOL TARTRATE 5 MG/5 ML VIAL IV PUSH SCH ×2 (15:10→21:26)
[2016-11-22] MEDS ORDERED: oxyCODONE/ACETAMINOPHEN 5 MG/325 MG TAB PO PRN (16:00)
[2016-11-22] MEDS: MAGNESIUM HYDROXIDE SUSP 30 ML CUP PO SCH (21:00)
[2016-11-22] MEDS ORDERED: LABETALOL HCL 100 MG/20 ML VIAL IV PUSH ONE (23:45)
[2016-11-23] VITALS (18 sets, daily range): BP systolic 119–174; BP diastolic 56–84; PULSE 62–94; RESP 14–20; TEMP 99.3–100.8; O2SAT 99–100
[2016-11-23] MEDS: INSULIN NovoLIN REGULAR SUPPLEMENTAL SCALE SQ SCH ×5 (00:13→23:50)
[2016-11-23] MEDS: PROPOFOL 1000 MG/100 ML IV PRN ×3 (00:17→18:00)
[2016-11-23] MEDS: METOPROLOL TARTRATE 5 MG/5 ML VIAL IV PUSH SCH ×4 (02:09→20:45)
[2016-11-23] MEDS: levETIRAcetam INJ 500 MG in SODIUM CHLORIDE 0.9% INJ 100 ML IV SCH ×2 (03:34→15:56)
[2016-11-23] MEDS ORDERED: EPINEPHrine HCL (1:10,000) 1 MG/10 ML SYRINGE ONE (03:44)
[2016-11-23] MEDS ORDERED: ATROPINE SULFATE 1 MG/10 ML SYRINGE ONE (03:44)
[2016-11-23] MEDS ORDERED: LIDOCAINE HCL 2% 100 MG/5 ML SYRINGE ONE (03:44)
--- NOTE | 2016-11-23 04:56 | RADRPT ---
EXAM DATE/TIME: 11/23/2016 04:23 [facility] COMPARISON: CT BRAIN W/O CONTRAST, November 16, 2016, 9:52. INDICATIONS : Follow up TBI. RADIATION DOSE: 56.35 CTDIvol (mGy) MEDICAL HISTORY : Non-responsive. SURGICAL HISTORY : Non-responsive. ENCOUNTER: Subsequent ACUITY: 1 week PAIN SCALE: Non-responsive LOCATION: cranial TECHNIQUE: Multiple contiguous axial images were obtained of the head. Using automated exposure control and adj ustment of the mA and/or kV according to patient size, radiation dose was kept as low as reasonably a chievable to obtain optimal diagnostic quality images. DICOM format image data is available electro nically for review and comparison. FINDINGS: Extra-axial blood again seen along the right parietal, occipital and temporal lobes similar in size m easures about 17 mm in maximal thickness. There is an approximately 3 cm area of parenchymal hemorrha ge of the right temporal lobe again seen. There is bilateral subarachnoid blood again noted, mostly t he frontal and parietal convexity sulci. Large left occipital skull defect again seen. The hemorrhage in the left cerebellar hemisphere is dec reasing in size and attenuation. The nondisplaced fracture of the right occipital bone is unchanged. Right frontal ventriculostomy catheter again noted. No ventriculomegaly. Previously seen pneumocephal y has resolved. There is no midline shift. No mass lesion demonstrated. No evidence of an acute ischemic event. CONCLUSION: Multifocal intracranial hemorrhage as above, stable and/or decreasing in the interim. The 17 mm thick extra-axial blood on the right is potentially epidural but is stable. No new blood seen. No midline shift or ventriculomegaly. Pneumocephaly has resolved. Fabien Rodríguez MD on November 23, 2016 at 4:49 Board Certified Radiologist. This report was verified electronically.
[2016-11-23 05:26] LABS: AUTOMATED NEUTROPHIL # 14.3 TH/MM3 (1.8-7.7); BASOPHIL # 0.1 TH/MM3 (0-0.2); BASOPHIL % 0.4 % (0.0-2.0); EOSINOPHIL # 0.1 TH/MM3 (0-0.4); EOSINOPHIL % 0.4 % (0.0-4.0); HEMATOCRIT 25.7 % (39.0-51.0); HEMOGLOBIN 8.5 GM/DL (13.0-17.0); LYMPH % 12.3 % (9.0-44.0); LYMPHOCYTE # 2.3 TH/MM3 (1.0-4.8); MEAN CELL VOLUME 99.7 FL (80.0-100.0); MEAN CORPUSCULAR HEMOGLOBIN 33.1 PG (27.0-34.0); MEAN CORPUSCULAR HGB CONC 33.2 % (32.0-36.0); MEAN PLATELET VOLUME 9.2 FL (7.0-11.0); MONO % 10.7 % (0.0-8.0); NEUT % 76.2 % (16.0-70.0); PLATELET COUNT 261 TH/MM3 (150-450); RED BLOOD COUNT 2.58 MIL/MM3 (4.50-5.90); RED CELL DISTRIBUTION WIDTH 17.7 % (11.6-17.2); WHITE BLOOD COUNT 18.8 TH/MM3 (4.0-11.0)
[2016-11-23 05:39] LABS: ALBUMIN 1.8 GM/DL (3.4-5.0); AST (GOT) 47 U/L (15-37); BICARBONATE 28.7 MEQ/L (21.0-32.0); BLOOD UREA NITROGEN 19 MG/DL (7-18); CALCIUM 7.7 MG/DL (8.5-10.1); CHLORIDE 110 MEQ/L (98-107); CREATININE 0.45 MG/DL (0.60-1.30); GLOMERULAR FILTRATION RATE 192 ML/MIN (>89); GLUCOSE,RANDOM 122 MG/DL (74-106); SODIUM (NA) 144 MEQ/L (136-145)
[2016-11-23 05:40] LABS: ALT (GPT) 42 U/L (12-78)
[2016-11-23 05:42] LABS: ALKALINE PHOSPHATASE 85 U/L (45-117); TOTAL BILIRUBIN ADULT 0.4 MG/DL (0.2-1.0); TOTAL PROTEIN 5.3 GM/DL (6.4-8.2)
--- NOTE | 2016-11-23 06:30 | RADRPT ---
EXAM DATE/TIME: 11/23/2016 05:22 [facility] COMPARISON: CHEST SINGLE AP, November 22, 2016, 3:55. INDICATIONS : Shortness of breath. MEDICAL HISTORY : Non-responsive. SURGICAL HISTORY : Non-responsive. ENCOUNTER: Subsequent ACUITY: 1 week PAIN SCORE: 0/10 LOCATION: Bilateral chest FINDINGS: Decreasing basilar consolidation, now minimal. No large effusion. No pneumothorax. Heart size stable, normal. Endotracheal tube tip is about 3.5 cm above the lesli. Nasogastric tube courses into the stomach. Th ere is a right internal jugular central venous catheter with tip in the superior vena cava again note d. CONCLUSION: Trace bibasilar consolidation, decreasing. Fabien Rodríguez MD on November 23, 2016 at 6:27 Board Certified Radiologist. This report was verified electronically.
[2016-11-23 06:44] LABS: BANDS 9 % (0-6); CORRECTED NUCLEATED RBC 1 /100 WBC (0-0); LYMPHOCYTES 9 % (9-44); MONOCYTES 10 % (0-8); MYELOCYTES 1 % (0-0); NEUTROPHIL # MANUAL DIFF 15.2 TH/MM3 (1.8-7.7); NUCLEATED RED BLOOD CELL 1 (0-0); POLYS (SEG NEUTROPHILS) 71 % (16-70)
[2016-11-23] MEDS: hydrALAZINE HCL 20 MG/ML VIAL IV PUSH SCH ×4 (07:35→23:44)
[2016-11-23] MEDS: CHLORHEXIDINE 0.12% (ORAL KIT) 15 ML CUP MT SCH ×2 (07:40→20:45)
[2016-11-23] MEDS: SODIUM CHLORIDE 0.9% FLUSH 10 ML FLUSH IV FLUSH SCH ×2 (08:00→20:46)
[2016-11-23] MEDS: FAMOTIDINE 20 MG TAB PO SCH ×2 (08:00→20:46)
[2016-11-23] MEDS: DOCUSATE SODIUM 100 MG CAP PO SCH ×3 (08:00→20:46)
[2016-11-23] MEDS: 3% SALINE INJ 500 ML IV PRN (08:00)
[2016-11-23] MEDS: LACTULOSE SYRUP 20 GM/30 ML CUP PO SCH ×2 (08:00→08:51)
[2016-11-23] MEDS: ENOXAPARIN SODIUM 30 MG/0.3 ML SYRINGE SQ SCH ×2 (09:00→20:46)
--- NOTE | 2016-11-23 10:25 | HHI.NSPN ---
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 A 1.7 cm right temporal parietal subdural hematoma. Contusions are noted in the left cerebellar hemisphere up to 5 cm in size with compression of the fourth ventricle and a contusion is noted in the right temporal lobe. Small contusion cortically in the lower left parietal lobe. He underwent emergent suboccipital decompressive craniectomy, C1 laminectomy for evacuation of cerebellar hematoma, with placement of ventriculostomy drain on 11/13/1611/14: intubated, and very well sedated. sedation lowered pt restless. EVD draining well. ICPs wnl overnight. 11/15: off propofol, remains on fentanyl drip. Moving spontaneously. ICPs stable overnight, EVD draining well. 11/16: off sedation opens eyes, moving all four extremities but not following commands. EVD draining well, ICPs remains wnl. 11/17: remains intubated and sedated. ICPs stable, EVD draining well. f/u CT Brain yesterday completed and reviewed by Dr. Grimm. 11/18: sedated on diprivan, slightly opens eyes to voice. withdraws x 4 extremities but does not follow commands. 11/19: when sedation lowered, opens eyes and withdraws x 4, placed back on sedation for blood pressure control. 11/20: intubated, sedated. EVD draning well, ICPs as high as 10 overnight. nursing reports ?weaker left side today. 11/23: 3% NS restarted wednesday afternoon with improved ICPs. stable over the weekend. repeat CT Head over the weekend completed. (Kathy Moctezuma) Labs, Micro, & Vital Signs Results Date Time Temp Pulse Resp B/P (MAP) Pulse Ox O2 Delivery O2 Flow Rate FiO2 11/23/16 09:00 100 30 11/23/16 06:00 66 11/23/16 04:14 100 30 11/23/16 04:00 62 11/23/16 04:00 100.8 62 14 140/60 (86) 100 11/23/16 04:00 30 11/23/16 02:00 67 11/23/16 00:24 100 30 11/23/16 00:00 100.4 85 20 174/79 (110) 100 11/23/16 00:00 85 11/23/16 00:00 30 11/22/16 22:40 17 11/22/16 22:00 62 11/22/16 21:15 100 30 11/22/16 20:00 30 11/22/16 20:00 100.4 86 14 180/82 (114) 100 11/22/16 20:00 86 11/22/16 18:00 74 11/22/16 17:15 100 30 11/22/16 16:00 30 11/22/16 16:00 100.0 64 14 110/66 (81) 100 11/22/16 16:00 64 11/22/16 13:05 100 30 11/22/16 12:00 30 11/22/16 12:00 99.1 78 22 168/77 (107) 100 11/22/16 12:00 78 11/24/16 07:00 Intake Total 21 ml Balance 21 ml Constitutional Vital Signs Date Time Temp Pulse Resp B/P (MAP) Pulse Ox O2 Delivery O2 Flow Rate FiO2 11/23/16 09:00 100 30 11/23/16 06:00 66 11/23/16 04:14 100 30 11/23/16 04:00 62 11/23/16 04:00 100.8 62 14 140/60 (86) 100 11/23/16 04:00 30 11/23/16 02:00 67 11/23/16 00:24 100 30 11/23/16 00:00 100.4 85 20 174/79 (110) 100 11/23/16 00:00 85 11/23/16 00:00 30 11/22/16 22:40 17 11/22/16 22:00 62 11/22/16 21:15 100 30 11/22/16 20:00 30 11/22/16 20:00 100.4 86 14 180/82 (114) 100 11/22/16 20:00 86 11/22/16 18:00 74 11/22/16 17:15 100 30 11/22/16 16:00 30 11/22/16 16:00 100.0 64 14 110/66 (81) 100 11/22/16 16:00 64 11/22/16 13:05 100 30 11/22/16 12:00 30 11/22/16 12:00 99.1 78 22 168/77 (107) 100 11/22/16 12:00 78 11/24/16 07:00 Intake Total 21 ml Balance 21 ml (Kathy Moctezuma) Review of Systems ROS Limitations: Intubated (Kathy Moctezuma) Physical Exam Mr. Villalta is intubated, sedation currently turned off. Eyes open, but does not following commands. Surgical incision healing well, no signs of infection, clean and dry. Right ventriculostomy at 5 cm H20, draining well - CSF dark red. ICPs = 4 Cranial Nerves: Pupils 2 mm b/l. Conjugate gaze. Bilateral periorbital ecchymoses, conjunctival hemorrhages L>R - improving. Motor: very minimal response to pain, currently well sedated. Reflexes: Trace throughout. Positive b/l Babinski. No ankle clonus. Cerebellar: cannot assess due to current clinical condition (Kathy Moctezuma) Medications Current Medications Current Medications Medications (Trade) Dose Ordered Sig/Femi Route PRN Reason Start Time Stop Time Status Last Admin Dose Admin Sodium Chloride (NS Flush) 2 ml UNSCH PRN IV FLUSH FLUSH AFTER USING IV ACCESS 11/13/16 15:00 Sodium Chloride (NS Flush) 2 ml BID IV FLUSH 11/13/16 21:00 11/22/16 21:27 Ondansetron HCl (Zofran Inj) 4 mg Q6H PRN IV NAUSEA OR VOMITING 11/13/16 15:00 Naloxone HCl (Narcan Inj) 0.4 mg UNSCH PRN IV PUSH SEE LABEL COMMENTS 11/13/16 15:00 Levetriacetam 500 mg/Sodium Chloride 105 ml @ 420 mls/hr Q12H IV 11/13/16 16:00 11/23/16 03:34 Bisacodyl (Dulcolax Supp) 10 mg DAILY PRN RECTAL CONSTIPATION 11/13/16 15:00 Docusate Sodium (Colace) 100 mg BID PO 11/13/16 21:00 11/22/16 08:23 Calcium Gluconate (Calcium Gluconate Inj) 1 gm UNSCH PRN IV SEE LABEL COMMENTS 11/13/16 15:00 Potassium Chloride 100 ml @ 50 mls/hr UNSCH PRN IV POTASSIUM LESS THAN 4 11/13/16 15:00 Magnesium Sulfate 4 gm/Sodium Chloride 108 ml @ 108 mls/hr UNSCH PRN IV MAGNESIUM LESS THAN 2 11/13/16 15:00 Morphine Sulfate (Morphine Inj) 2 mg Q2H PRN IV PUSH PAIN SCALE 1 TO 6 11/13/16 15:00 11/22/16 22:28 Morphine Sulfate (Morphine Inj) 4 mg Q2H PRN IV PUSH PAIN SCALE 7 TO 10 11/13/16 15:00 Acetaminophen (Tylenol) 650 mg Q4H PRN PO TEMPERATURE > 101.5 F 11/13/16 15:00 11/23/16 00:29 Propofol 100 ml @ 1.65 mls/hr TITRATE PRN IV SEDATION 11/13/16 20:15 11/23/16 05:44 Dextrose (D50w (Vial) Inj) 25 ml UNSCH PRN IV PUSH HYPOGLYCEMIA-SEE COMMENTS 11/14/16 02:30 Insulin Human Regular (NovoLIN R SUPPLEMENTAL SCALE) 1 Q6HR SQ 11/14/16 06:00 11/23/16 00:13 Chlorhexidine Gluconate (Peridex 0.12% Liq) 15 ml BID@08,20 MT 11/14/16 08:00 11/23/16 07:40 Magnesium Oxide (Mag-Ox) 800 mg UNSCH PRN PO For Magnesium 1.2 - 1.6 mg/dL 11/14/16 02:30 Magnesium Sulfate 4 gm/Sodium Chloride 100 ml @ 50 mls/hr UNSCH PRN IV For Magnesium 0.9 - 1.1 mg/dL 11/14/16 02:30 Magnesium Sulfate 2 gm/Sodium Chloride 100 ml @ 50 mls/hr UNSCH PRN IV For Magnesium 1.2 - 1.6 mg/dL 11/14/16 02:30 Potassium Chloride 100 ml @ 50 mls/hr Q2H PRN IV For Potassium 2.8 - 3.2 mEq/L 11/14/16 02:30 11/17/16 10:35 Potassium Chloride 100 ml @ 50 mls/hr Q2H PRN IV For Potassium 3.3 - 3.5 mEq/L 11/14/16 02:30 Potassium Chloride 100 ml @ 50 mls/hr Q2H PRN IV For Potassium 2.8 - 3.2 mEq/L 11/14/16 02:30 Potassium Chloride 100 ml @ 25 mls/hr UNSCH PRN IV For Potassium 3.3 - 3.5 mEq/L 11/14/16 02:30 11/18/16 04:50 Potassium Phosphate (K-Phos) 2,000 mg Q4H PRN PO For Phosphorus < 2.5 mg/dL 11/14/16 02:30 Potassium Phosphate (K-Phos) 2,000 mg UNSCH PRN PO/TUBE SEE LABEL COMMENTS 11/14/16 02:30 Potassium Phosphate 30 mmol/ Sodium Chloride 260 ml @ 42 mls/hr UNSCH PRN IV SEE LABEL COMMENTS 11/14/16 02:30 Sodium Phosphate 30 mmol/Sodium Chloride 250 ml @ 42 mls/hr UNSCH PRN IV For Phosphorus < 2.5 mg/dL 11/14/16 02:30 Albuterol/ Ipratropium (Duoneb Neb) 1 ampule Q2HR NEB PRN INH WHEEZING 11/14/16 02:30 Magnesium Hydroxide (Milk Of Magnesia Liq) 30 ml HS PO 11/15/16 21:00 11/20/16 20:25 Lactulose (Lactulose Liq) 30 ml DAILY PO 11/15/16 09:00 11/22/16 08:23 Ceftriaxone Sodium 2000 mg/ Sodium Chloride 100 ml @ 200 mls/hr Q24H IV 11/17/16 13:00 11/22/16 13:02 Famotidine (Pepcid) 20 mg BID PO 11/19/16 21:00 11/23/16 08:00 Enoxaparin Sodium (Lovenox Inj) 30 mg Q12H SQ 11/20/16 21:00 11/23/16 09:00 Hydralazine HCl (Apresoline Inj) 10 mg Q6HR IV PUSH 11/22/16 11:00 11/23/16 07:35 Metoprolol Tartrate (Lopressor Inj) 5 mg Q6H IV PUSH 11/22/16 14:00 11/23/16 08:00 Fentanyl (Duragesic 50 Mcg Patch.72 Hr) 1 patch Q3D T-DERMAL 11/22/16 11:00 11/22/16 11:57 Oxycodone/ Acetaminophen (Percocet 5-325 Mg) 1 tab Q6H PRN PO Breakthrough pain 11/22/16 16:00 11/22/16 17:44 Miscellaneous Information 1 Q3D T-DERMAL 11/25/16 11:00 Labetalol HCl (Trandate Inj) 10 mg Q4H PRN IV PUSH SBP>160, DBP>90 11/22/16 23:45 Rocuronium [place] (Zemuron Inj) 50 mg BOLUS ONCE IV 11/23/16 11:00 11/23/16 11:01 UNV Propranolol HCl (Inderal Inj) 50 mg ONCE ONCE IV PUSH 11/23/16 11:00 11/23/16 11:01 UNV (Kathy Moctezuma) Medical Decision Making MDM Remarks Middle age 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 A 1.7 cm right temporal parietal subdural hematoma and contusions. Left cerebellar contusions with compression of the fourth ventricle he underwent emergent suboccipital decompressive craniectomy, C1 laminectomy for evacuation of cerebellar hematoma, with placement of ventriculostomy drain on 11/13/16 f/u CT Brain 11/23: decreasing in size of right SDH, improving cerebellar hematoma, otherwise stable compared to CT Head 11/16 (Kathy Moctezuma) Plan Plan Remarks start challenging ventriculostomy drain, raise to 10 cm H20, cont ICP monitoring cont sedation weaning as tolerated, follow up neuro examination cont 3% NS cont critical care mgt, cont mechanical vent support cont daily dressing changes, monitor wound, sutures dc 11/27/16 Protonix for stress ulcer proph, Keppra for sz prophylaxis dw daughter at bedside (Kathy Moctezuma) Attending Statement The exam, history, and the medical decision-making described in the above note were completed with the assistance of the mid-level provider. I reviewed and agree with the findings presented. I attest that I had a [id number] encounter with the patient on the same day, and personally performed and documented my assessment and findings in the medical record. (Stu Grimm MD) Kathy Moctezuma Nov 23, 2016 10:25 Stu Grimm MD Nov 25, 2016 17:02
[2016-11-23] MEDS ORDERED: ROCURONIUM INJ 50 MG/5 ML VIAL IV ONE (11:00)
[2016-11-23] MEDS ORDERED: PROPRANOLOL INJ 1 MG/ML AMP IV PUSH ONE (11:00)
--- NOTE | 2016-11-23 11:30 | HHI.PR ---
Neuropsych Emotional Emotional: UnabletoAssess: Emotional, Anxious/Fearful, Depressed/Sad, Hostile/ Resentful, Irritable/Angry/Frustrate, Labile, Constricted/Blunted Behavior Behavior: Unable to Asses: Behavior, Coping/Acceptance, Cooperative w/ Treatment, Motivation, Frustration Tolerance/[place], Impulsive/Agitated, Suicidal/ Homicidal Risk Cognitive Cognitive: Unable to Asses: Cognitive, Attention/Concentration, Confused/ Orientation, Insight/Awareness, Judgement/Problem-Solving, Memory Psychosocial Psychosocial: Intact: Psychosocial, Family/Other Adjustment, Realistic Expectation, Unable to Asses: Self-Esteem/Confidence Progress Notes/Response to Tx Contents of Sessions: Adjustment, Level of Consciousness Time with Patient: 15 minutes Premorbid psychological status Premorbid Cognitive, Emotional and Behavioral Status: Stable. The patient is originally from [facility] and has a solid work history prior to this injury. The patient has no psychiatric difficulties, as described above. Substance abuse history is unremarkable. Behavioral Reactions of Patient and Family/Support System: Stable. The patient s family is experiencing ongoing issues of adjustment given the nature of the injury, and this aspect of recovery will require ongoing monitoring. Emotional/Behavioral Status of Patient and Family/Support System: Stable. Pertinent issues, if appropriate to this patients clinical care, are described in detail above. Maximizing acute care outcome It is recommended that the patient be monitored for emergent behavioral impulsivity as the medical condition evolves. This patients neuropathological challenges may limit their rehabilitation potential going forward, and these challenges will require specialized therapeutic skills to maximize outcome. Additionally, the patients family is experiencing ongoing issues of adjustment given the traumatic nature of the injury, and they will need ongoing psychological assistance. Anticipated Problems Ongoing areas of concern will include behavioral impulsivity, lack of insight and judgment, which is expected to improve with time and treatment. Presently , the patient remains intubated and sedated. Treatment Plan This clinician will continue to follow with you throughout the course of this patients acute care treatment, and I will be available to meet with the patient s family/support system to facilitate their understanding and the ongoing care of their family member. The goals of neuropsychological intervention shall be both educational and supportive to the family/support system as is deemed clinically appropriate. [facility] Level: II:General response-total assist Impression This is a 61 year old man s/p TBI 2T probable fall. Diagnosis: (1) Major neurocognitive disorder as late effect of traumatic brain injury without behavioral disturbance Status: Acute Progress Note Narrative Ongoing follow-up of patient seen during daily trauma rounds. This is day 10 post injury. On sedation vacations, the patient opens his eyes and reportedly tracks, but does not follow commands. He will require a tracheostomy. His ICPs have been low. I had a long discussion with the patient's daughter concerning prognosis issues, and answered all of her questions to the best of my abilities. The patient is neurobehaviorally improving, and trauma team consensus is to consider medications such as Amantadine once other medical and sedation issues are completely resolved. This patient is at [facility]. I will continue to follow. Johan Pierson PhD Nov 23, 2016 11:30 am
--- NOTE | 2016-11-23 12:57 | HHI.PR ---
Subjective Subjective Comments Discussed with nursing and sedation has been held. Patient resting comfortably in bed. No pain behaviors noted Allergies: Coded Allergies: No Known Allergies (Unverified , 11/13/16) Review of Systems All other ROS: Unable to obtain Exam I&O / VS 11/23/16 11/23/16 11/24/16 14:59 22:59 06:59 Intake Total 21 ml Balance 21 ml Intake IV Total 21 ml Vital Signs Date Time Temp Pulse Resp B/P (MAP) Pulse Ox O2 Delivery O2 Flow Rate FiO2 11/23/16 11:37 99 30 11/23/16 10:00 70 11/23/16 09:00 100 30 11/23/16 08:00 100.0 70 17 119/65 (83) 100 11/23/16 08:00 30 11/23/16 08:00 70 11/23/16 06:00 66 11/23/16 04:14 100 30 11/23/16 04:00 62 11/23/16 04:00 100.8 62 14 140/60 (86) 100 11/23/16 04:00 30 11/23/16 02:00 67 11/23/16 00:24 100 30 11/23/16 00:00 100.4 85 20 174/79 (110) 100 11/23/16 00:00 85 11/23/16 00:00 30 11/22/16 22:40 17 11/22/16 22:00 62 11/22/16 21:15 100 30 11/22/16 20:00 30 11/22/16 20:00 100.4 86 14 180/82 (114) 100 11/22/16 20:00 86 11/22/16 18:00 74 11/22/16 17:15 100 30 11/22/16 16:00 30 11/22/16 16:00 100.0 64 14 110/66 (81) 100 11/22/16 16:00 64 11/22/16 13:05 100 30 General: Intubated, No acute distress Cardiovascular: Normal rate Musculoskeletal: ROM (within functional limits), Other (SCDs in place) Neurologic: Pupils (reactive bilaterally), EOM (not focusing or tracking to voice), Other (no voluntary or spontaneous movement of the extremities noted) Objective Micro and Labs Laboratory Tests Test 11/22/16 14:00 11/22/16 17:50 11/22/16 23:00 11/23/16 05:00 Sodium Level 146 145 145 144 White Blood Count 18.8 Red Blood Count 2.58 Hemoglobin 8.5 Hematocrit 25.7 Mean Corpuscular Volume 99.7 Mean Corpuscular Hemoglobin 33.1 Mean Corpuscular Hemoglobin Concent 33.2 Red Cell Distribution Width 17.7 Platelet Count 261 Mean Platelet Volume 9.2 Neutrophils (%) (Auto) 76.2 Lymphocytes (%) (Auto) 12.3 Monocytes (%) (Auto) 10.7 Eosinophils (%) (Auto) 0.4 Basophils (%) (Auto) 0.4 Neutrophils # (Auto) 14.3 Lymphocytes # (Auto) 2.3 Monocytes # (Auto) 2.0 Eosinophils # (Auto) 0.1 Basophils # (Auto) 0.1 CBC Comment AUTO DIFF Differential Total Cells Counted 100 Neutrophils % (Manual) 71 Band Neutrophils % 9 Lymphocytes % 9 Monocytes % 10 Neutrophils # (Manual) 15.2 Myelocytes 1 Nucleated Red Blood Cells 1 Differential Comment FINAL DIFF MANUAL Platelet Estimate NORMAL Platelet Morphology Comment NORMAL Polychromasia 2.0 Blood Urea Nitrogen 19 Creatinine 0.45 Random Glucose 122 Total Protein 5.3 Albumin 1.8 Calcium Level 7.7 Alkaline Phosphatase 85 Aspartate Amino Transf (AST/SGOT) 47 Alanine Aminotransferase (ALT/SGPT) 42 Total Bilirubin 0.4 Potassium Level 4.0 Chloride Level 110 Carbon Dioxide Level 28.7 Anion Gap 5 Estimat Glomerular Filtration Rate 192 Test 11/23/16 11:00 Sodium Level 144 Date/Time Source Procedure Growth Status 11/15/16 11:43 Blood Peripheral Aerobic Blood Culture - Final NO GROWTH IN 5 DAYS Complete 11/15/16 11:43 Blood Peripheral Anaerobic Blood Culture - Final NO GROWTH IN 5 DAYS Complete 11/13/16 14:31 Cerebral Spinal Fluid Shunt Fluid Fungal Smear - Final NO FUNGAL ELEMENTS SEEN. Resulted 11/13/16 14:31 Cerebral Spinal Fluid Shunt Fluid Fungal Culture - Preliminary NO GROWTH IN 1 WEEK Resulted 11/15/16 12:18 Sputum Endotracheal Gram Stain - Final Complete 11/15/16 12:18 Sputum Culture - Final Escherichia Coli Complete 11/19/16 10:42 Urine Catheterized Urine Urine Culture - Final NO GROWTH IN 48 HOURS. Complete Assessment and Plan Diagnosis: (1) Traumatic brain injury ICD Codes: S06.9X9A - Unspecified intracranial injury with loss of consciousness of unspecified duration, initial encounter Status: Acute Qualifiers: Encounter type: subsequent encounter Loss of consciousness presence/ duration: with LOC of unspecified duration Qualified Codes: S06.9X9D - Unspecified intracranial injury with loss of consciousness of unspecified duration, subsequent encounter Assessment 1. Traumatic brain injury status post left suboccipital craniotomy for evacuation of cerebellar hemorrhage with ventriculostomy placement. [place] level 2 2. Aspiration pneumonitis Plan 1. PT is providing range of motion. Progress to mobilization as medical and neurological status allows 2. OT following and dependent for ADLs 3. Appreciate neuropsychology evaluation and follow-up 4. SCDs in place for DVT prophylaxis 5. Reposition every 2 hours to protect skin and monitor for breakdown 6. Will follow in conjunction with case management regarding rehabilitation needs at discharge. Anticipate patient will need ongoing inpatient care. Sandhya Martínez MD Nov 23, 2016 12:57
[2016-11-23] MEDS: cefTRIAXone INJ 2,000 MG in SODIUM CHLORIDE 0.9% INJ 100 ML IV SCH (13:14)
--- NOTE | 2016-11-23 13:35 | PD.CONS ---
HPI History of Present Illness This is a 61 year old male who was brought to the emergency room as a trauma alert after he was found down by his family at home. He was noted to have a scalp hematoma, raccoon eyes, and was obtunded. He was found to have a right occipital skull fracture, 1.7 cm right subdural hematoma, left cerebellar hemorrhagic contusions, contusion in the right temporal and left parietal lobe. He is currently sedated on the ventilator in the intensive care unit being treated for his severe traumatic brain injury, acute encephalopathy, respiratory failure, aspiration pneumonitis, and anemia/thrombocytopenia. He is requiring prolonged mechanical ventilation and there are plans for a tracheostomy. GI has been consulted for PEG tube placement. He currently has an OGT for tube feeding. The manager flight operations is following and has recommended Jevity 1.5 at 60cc/hr. I was going to call family, but there are no contacts listed in EMR. Spoke to nurse- two daughters- Lexie [phone] and Juliano (sp?) [phone]. Called and they are in the hospital and will come up to room to speak about the procedure. (Michela Schultz) PFSH Past Medical History Remote hx of perforated ulcer Past Surgical History Partial gastrectomy (Michela Schultz) Coded Allergies: No Known Allergies (Unverified , 11/13/16) Medications Allergies Coded Allergies Type Severity Reaction Last Updated Verified No Known Allergies 11/13/16 No Family History Unable to obtain Social History Unable to obtain (Michela Schultz) Review of Systems ROS Unable to obtain (Michela Schultz) GI Exam Vitals I&O Vital Signs Date Time Temp Pulse Resp B/P (MAP) Pulse Ox O2 Delivery O2 Flow Rate FiO2 11/23/16 11:37 99 30 11/23/16 10:00 70 11/23/16 09:00 100 30 11/23/16 08:00 100.0 70 17 119/65 (83) 100 11/23/16 08:00 30 11/23/16 08:00 70 11/23/16 06:00 66 11/23/16 04:14 100 30 11/23/16 04:00 62 11/23/16 04:00 100.8 62 14 140/60 (86) 100 11/23/16 04:00 30 11/23/16 02:00 67 11/23/16 00:24 100 30 11/23/16 00:00 100.4 85 20 174/79 (110) 100 11/23/16 00:00 85 11/23/16 00:00 30 11/22/16 22:40 17 11/22/16 22:00 62 11/22/16 21:15 100 30 11/22/16 20:00 30 11/22/16 20:00 100.4 86 14 180/82 (114) 100 11/22/16 20:00 86 11/22/16 18:00 74 11/22/16 17:15 100 30 11/22/16 16:00 30 11/22/16 16:00 100.0 64 14 110/66 (81) 100 11/22/16 16:00 64 11/22/16 13:05 100 30 I/O 11/22/16 11/22/16 11/22/16 11/23/16 11/23/16 11/23/16 07:00 15:00 23:00 07:00 15:00 23:00 Intake Total 1350.2 ml 131 ml 1208 ml 1167.1 ml 21 ml Output Total 623 ml 938 ml 685 ml Balance 727.2 ml 131 ml 270 ml 482.1 ml 21 ml Intake IV Total 519.2 ml 131 ml 368 ml 382.1 ml 21 ml Tube Feeding 711 ml 840 ml 725 ml Other 120 ml 60 ml Output Urine Total 525 ml 800 ml 450 ml Stool Total 0 ml 2 ml 100 ml Drainage Total 98 ml 136 ml 135 ml Imaging Last Impressions Head CT 11/23/16 0600 Signed Impressions: Service Date/Time: Wednesday, November 23, 2016 04:23 - CONCLUSION: Multifocal intracranial hemorrhage as above, stable and/or decreasing in the interim. The 17 mm thick extra-axial blood on the right is potentially epidural but is stable. No new blood seen. No midline shift or ventriculomegaly. Pneumocephaly has resolved. Fabien Rodríguez MD Chest X-Ray 11/23/16 0000 Signed Impressions: Service Date/Time: Wednesday, November 23, 2016 05:22 - CONCLUSION: Trace bibasilar consolidation, decreasing. Fabien Rodríguez MD Maxillofacial CT 9/22/17 1316 Signed Impressions: Service Date/Time: Sunday, November 13, 2016 13:11 - CONCLUSION: Air-fluid level with admixture of air and fluid in the left sphenoid sinus compartment. Otherwise negative. Acute fracture is not identified. Yariel Odell MD Thoracic Spine CT 11/13/161310 Signed Impressions: Service Date/Time: Sunday, November 13, 2016 13:15 - CONCLUSION: No fracture or subluxation. Bobby Rasmussen MD Lumbar Spine CT 11/13/161310 Signed Impressions: Service Date/Time: Sunday, November 13, 2016 13:15 - CONCLUSION: 1. No acute fracture. Spinal canal and neural foramen appear to be adequate throughout. 2. Dextroscoliosis of the lumbar spine with mild associated degenerative changes 3. Diverticular disease of the sigmoid without diverticulitis Aftab Cramer MD Chest CT 11/13/161310 Signed Impressions: Service Date/Time: Sunday, November 13, 2016 13:17 - CONCLUSION: 1. Negative CT scan of the thorax. Chuy Fitzpatrick MD Cervical Spine CT 11/13/161310 Signed Impressions: Service Date/Time: Sunday, November 13, 2016 13:13 - CONCLUSION: 1. No acute fracture the cervical spine identified. There are degenerative changes as above. 2. There is fracture of the right side of the occipital bone. There is subdural hematoma in the posterior fossa on the right and intraparenchymal hemorrhage within the left cerebellar hemisphere. This was assessed by CT imaging of the brain. Chuy Fitzpatrick MD Abdomen/Pelvis CT 11/13/161310 Signed Impressions: Service Date/Time: Sunday, November 13, 2016 13:17 - CONCLUSION: Disproportionate dilatation of small bowel in the mid and upper abdomen relatively: Most consistent with ileus pattern. Surgical absence of the gallbladder with 2 cysts in the right lobe of the liver. Uncomplicated diverticuli of the sigmoid colon. 3 cm right testicle epididymal cyst.. Yariel Odell MD Laboratory Test 11/22/16 14:00 11/22/16 17:50 11/22/16 23:00 11/23/16 05:00 Sodium Level 146 MEQ/L 145 MEQ/L 145 MEQ/L 144 MEQ/L White Blood Count 18.8 TH/MM3 Red Blood Count 2.58 MIL/MM3 Hemoglobin 8.5 GM/DL Hematocrit 25.7 % Mean Corpuscular Volume 99.7 FL Mean Corpuscular Hemoglobin 33.1 PG Mean Corpuscular Hemoglobin Concent 33.2 % Red Cell Distribution Width 17.7 % Platelet Count 261 TH/MM3 Mean Platelet Volume 9.2 FL Neutrophils (%) (Auto) 76.2 % Lymphocytes (%) (Auto) 12.3 % Monocytes (%) (Auto) 10.7 % Eosinophils (%) (Auto) 0.4 % Basophils (%) (Auto) 0.4 % Neutrophils # (Auto) 14.3 TH/MM3 Lymphocytes # (Auto) 2.3 TH/MM3 Monocytes # (Auto) 2.0 TH/MM3 Eosinophils # (Auto) 0.1 TH/MM3 Basophils # (Auto) 0.1 TH/MM3 CBC Comment AUTO DIFF Differential Total Cells Counted 100 Neutrophils % (Manual) 71 % Band Neutrophils % 9 % Lymphocytes % 9 % Monocytes % 10 % Neutrophils # (Manual) 15.2 TH/MM3 Myelocytes 1 % Nucleated Red Blood Cells 1 /100 WBC Differential Comment FINAL DIFF MANUAL Platelet Estimate NORMAL Platelet Morphology Comment NORMAL Polychromasia 2.0 % Blood Urea Nitrogen 19 MG/DL Creatinine 0.45 MG/DL Random Glucose 122 MG/DL Total Protein 5.3 GM/DL Albumin 1.8 GM/DL Calcium Level 7.7 MG/DL Alkaline Phosphatase 85 U/L Aspartate Amino Transf (AST/SGOT) 47 U/L Alanine Aminotransferase (ALT/SGPT) 42 U/L Total Bilirubin 0.4 MG/DL Potassium Level 4.0 MEQ/L Chloride Level 110 MEQ/L Carbon Dioxide Level 28.7 MEQ/L Anion Gap 5 MEQ/L Estimat Glomerular Filtration Rate 192 ML/MIN Test 11/23/16 11:00 Sodium Level 144 MEQ/L Date/Time Source Procedure Growth Status 11/15/16 11:43 Blood Peripheral Aerobic Blood Culture - Final NO GROWTH IN 5 DAYS Complete 11/15/16 11:43 Blood Peripheral Anaerobic Blood Culture - Final NO GROWTH IN 5 DAYS Complete 11/13/16 14:31 Cerebral Spinal Fluid Shunt Fluid Fungal Smear - Final NO FUNGAL ELEMENTS SEEN. Resulted 11/13/16 14:31 Cerebral Spinal Fluid Shunt Fluid Fungal Culture - Preliminary NO GROWTH IN 1 WEEK Resulted 11/15/16 12:18 Sputum Endotracheal Gram Stain - Final Complete 11/15/16 12:18 Sputum Culture - Final Escherichia Coli Complete 11/19/16 10:42 Urine Catheterized Urine Urine Culture - Final NO GROWTH IN 48 HOURS. Complete Physical Examination HEENT: Bilateral eyes ecchymotic, ICP monitor right CHEST: OETT to vent. diminished bases CARDIAC: RRR ABDOMEN: Soft, nondistended, nontender; no hepatosplenomegaly; bowel sounds are present in all four quadrants. EXTREMITIES: Mild generalized edema SENIOR INSTRUMENTATION ENGINEER: Tracks, does not follow commands (Michela Schultz) Assessment and Plan Plan ASSESSMENT: - Dysphagia, FEN. Pt in ICU with severe TBI, respiratory failure, requiring prolonged ventilation. Plan is for tracheostomy later today. GI consulted for PEG. The manager flight operations is following and has recommended Jevity 1.5 at 60cc/hr. Spoke to both daughter at bedside re: EGD with peg tube placement, procedure, risks, benefits and their questions were answered and they would like to proceed. Of note, they mention that he has a remote hx of perforated ulcer requiring partial gastrectomy and has had intermittent stomach issues since that time. On abx. PLAN: - Plan for egd with peg tube placement tomorrow - Obtain consents (spoke to daughters) - NPO after MN - On abx - Hold lovenox - Preventive Maintenance Engineer recommends Jevity 1.5 at 60cc/hr - Supportive care - Further recommendations to follow based on results of above - Pt seen and examined by Dr. Wade and myself and this note is written on her behalf (Michela Schultz) Physician Comments seen, examined agree with above we will attempt egd/peg in am if possible -he had partial gastrectomy (Haven Wade MD) Michela Schultz Nov 23, 2016 13:35 Haven Wade MD Nov 23, 2016 18:24
[2016-11-23] MEDS: LABETALOL HCL 100 MG/20 ML VIAL IV PUSH PRN (15:56)
--- NOTE | 2016-11-23 16:16 | HHI.CCPN ---
Subjective Brief History [place]: This is a 61-year-old male found in his apartment face down with massive injuries to the head brought in as priority 1 trauma alert and resuscitated. He is taken immediately to CT scan after resuscitation. He is found to have massive intracranial injuries including skull fracture, bleeding in the right cerebellar hemisphere, compression of the flow of the cerebrospinal fluid, hemorrhages in the cerebral area and some air. He also has a large subdural hematoma on the right. The patient is taken immediately to the operating room and he will come to the ICU after the decompression. Discussed this with Dr. Grimm. 24 Hour Review/Hospital Course 11/14/16 Patient underwent craniotomy and evacuation of the right posterior fossa hematoma In addition patient has a tear in the transfer sinus which is now clotted off Patient is now any ICU and remains on neuroprotective measures including Propofol/fentanyl 3% saline with sodium around [address] [facility] Maikel Coma Scale remains 3-4 ICP 12 mmHg and controllable Centra perfusion pressure has been adequate without any administration of vasopressors based on measurements of mean arterial pressure 11/15/16 Patient is neurologically somewhat improved and Maikel Coma Scale is about 6-7 Patient doesn't follow commands however he opens his eyes and moves all 4 extremities spontaneously This is a significant improvement in last 24 hours Remains off propofol Sodium adequate and with normal ICP hypertonic saline has been discontinued as well Repeat CT scan of the brain tomorrow 11/16/16 Patient with severe brain injuries on repeat CT scan he is residual subdural and subarachnoid hemorrhage intraparenchymal hemorrhages and brain contusions Moves all 4 extremities when now sedation indication Maikel Coma Scale around 5 Patient remains on neuroprotective measures including propofol and fentanyl ICP 8-12 mmHg 11/17/16 Neurologic status unchanged On sedation vacation patient is moving all 4 extremities but doesn't open eyes or tracs ICP remains low around 8-12 mmHg Patient remains on small dose propofol and fentanyl for pain Will start on antihypertensive some further decrease the propofol 11/18/16 sedation holiday-open eyes,moving all 4 extremities ICP/CPP-wnl propofol/fentanyl 11/19/16 open eyes,moving all 4 extremities on sedation holiday ICP/CPP-controlled tolerating tube feeds started propranolol 11/20/2016 PTD: 7 Weaning sedation slowly. Opens eyes. Pt moves all extremities, but not yet to command. ICP = 1-7, He had an episode overnight were ICP increased to 16 with turning for a linen change. Discussed with daughter at bedside. 11/21/16 No change in neurologic status On sedation vacation patient moves all 4 extremities but doesn't follow any commands and does not track ICP remains low Withdrawal of hypertonic saline resulted in increase it of intracranial pressure so this has been restarted Neuroprotective measures including Propofol/fentanyl Hypertonic saline at 3% 20 cc an hour At this point there is no where to go as far as decreasing any of these and we' ll just leave everything is a distal tomorrow and then try to decrease hypertonic saline again 11/22/16 No change in neurologic status Place patient on sedation vacation from propofol and he is opening eyes but doesn't track does not follow any commands ICP remains low and patient has responding central perfusion pressure which is adequate in the range of mean arterial pressure Hypertensive and therefore placed on Lopressor and hydralazine This patient has been in the unit for 9 days and at this point decision-making comes to tracheostomy and PEG and I discussed this with his daughter Depending on patient's progress in next 24-48 hrs, patient will likely be scheduled for tracheostomy 11/23/2016 PTD: 10 Patient remains sedated and mechanically ventilated. Opens eyes. Spoke with daughter at bedside to prepare for trach placement either today or tomorrow. Additionally patient will need PEG placement. Objective Vital Signs Date Time Temp Pulse Resp B/P (MAP) Pulse Ox O2 Delivery O2 Flow Rate FiO2 11/23/16 14:00 66 11/23/16 12:00 99.3 14 152/81 (104) 99 11/23/16 12:00 30 Intake and Output 11/23/16 11/23/16 11/24/16 08:00 16:00 00:00 Intake Total 1188.1 ml Output Total 685 ml Balance 503.1 ml Result Diagram: 11/23/16 0500 11/23/16 1100 Imaging Last [address] 11/23/16 0600 Signed Impressions: Service Date/Time: Wednesday, November 23, 2016 04:23 - CONCLUSION: Multifocal intracranial hemorrhage as above, stable and/or decreasing in the interim. The 17 mm thick extra-axial blood on the right is potentially epidural but is stable. No new blood seen. No midline shift or ventriculomegaly. Pneumocephaly has resolved. Fabien Rodríguez MD Chest X-Ray 11/23/16 0000 Signed Impressions: Service Date/Time: Wednesday, November 23, 2016 05:22 - CONCLUSION: Trace bibasilar consolidation, decreasing. Fabien Rodríguez MD Objective Remarks GENERAL: This is a 61-year-old male lying in bed. Sedated and mechanically ventilated. SKIN: Warm and dry. HEAD: Normocephalic. RIGHT ventriculostomy in place. EYES: PERRLA. 2mm bilaterally. Ecchymosis and swelling noted bilaterally. ENT: ETT to vent. OGT w/ tube feeding. No nasal bleeding or discharge. Mucous membranes pink and moist. NECK: Trachea midline. No JVD. CARDIOVASCULAR: Regular rate and rhythm. CM shows sinus bradycardia. RESPIRATORY: Vent. No accessory muscle use. Lungs are clear to auscultation. Breath sounds equal bilaterally. No distress or dyspnea. GASTROINTESTINAL: BS + x 4 quads. Abdomen soft, non-tender, nondistended. MUSCULOSKELETAL: Extremities without cyanosis, or edema. + peripheral pulses x 4 extremities. Warm with good capillary refill and sensation. MAEW. NEUROLOGICAL: Remains sedated and mechanically ventilated. Open eyes. Not following commands. 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 GCS 5-6. Obtunded. Intubated in the ED. + Cannabis. INJURIES: Skull fx SDH (temporal and parietal) LEFT cerebral contusions (w/compression of 4th ventricle) RIGHT temporal contusion LEFT parietal lobe contusion Procedures: 11/13: Intubated in the ED 11/13: Suboccipital craniectomy Consults: [facility]. Neurosurgery. Rehabilitation medicine. Neuropsych. Case management. Assessment and plan by system: NEUROLOGICAL: 11/13: Suboccipital craniectomy Sedated with propofol gtt. Opens eyes Moves all extremities well, but not yet to command. Sedation vacations daily to assess weaning capability. Pt is sedated with a RASS score of -2 Provide analgesia for comfort and pain. Fentanyl 50 mg patch. Percocet 5 mg every 6 hours PRN Serial neuro checks. 11/16: CT brain: Stable post OR - Interval left occipital craniectomy with pneumocephalus, intraparenchymal hemorrhage, subdural hemorrhage and subarachnoid hemorrhage 11/23: Ct brain - stable EVD - Ventriculoscopy ICP = 5-7. Seizure precautions. Seizure prophylaxis - IV Keppra 3% saline - discontinued. NA = 144 HOB elevated 30 degrees - + peripheral pulses x 4 extremities. CARDIOVASCULAR: HR - 60-66 sinus bradycardia BP - 152/81 Continually monitor for hemodynamic instability (shock and hypotension). BP meds - Lopressor q 6h. Hydralazine 10 mg q 6h. Volume status - +883. Follow CMP - Electrolyte status - Electrolyte protocol - in place RESPIRATORY: 11/13: Intubated in the ED Vent settings- 500 / 14 / 30% / 1.0 / +5 Sats = 97% Increase PEEP carefully (to assist in oxygenation by recruiting alveoli.) Weaning - will attempt CPAP trials once ICPs are better controlled and patient is more awake and following commands Consider tracheostomy if patient unable to wean from the ventilator. O2 Sats - Monitor for hypoxemia Goal of end tital CO2 = 35-40 Follow ABGs - Lung sounds - CTA Pulmonary toilet - L&S. Bronchodilators - Breathing treatments - duonebs. Chest X-Ray results - minimal bibasilar dependent airspace disease. Stable. Sputum culture - echoli Antibiotics - Rocephin IV VAP protocol in place - Labs tomorrow Chest X-Ray tomorrow GASTROINTESTINAL: Diet - Jevity at 60 ml/hr. TF - minimal residuals Bowel sounds - + x 4 quads Bowel regimen - Colace. MOM. Lactulose. Bisacodyl MI LBM - 102 GI consult for PEG placement RENAL / URINARY: Strict I&O - +883 BUN / creat 19 / 0.45 Maintain charles for strict diagnosis - Charles in place to bedside drainage bag Urine culture - neg ENDOCRINE: BGM - 122 via am labs SSI HEMATOLOGY: H&H 8.5 / 25.7 Continue to monitor for signs and symptoms of bleeding. Evaluate need for IVC filter. Transfuse for < 7.0 Monitor patient for any bleeding complications. Started Lovenox for DVT prophylaxis - okay with neurosurgery INFECTIOUS DISEASE: Follow CBC Monitor for signs and symptoms of infection: WBC - 18.8 [place] culture today. Provide pt with a line holiday. Remove Central line and A line Low grade fevers Administer antipyretics for temp as needed. IV abx: Rocephin 11/23: Sputum 11/23: Blood - 11/23: Urine: 11/19: Urine - neg 11/15: Sputum - Ecoli 11/15: Blood - NEG 11/13: CSF - NEG Monitor for pneumonia evolution with repeat chest X-Rays as needed. Maintain vigorous aseptic care of central line to avoid blood stream infections. Consider a consult to ID for further management IV LINES: 11/13: Ventric 11/13: ETT 11/13: OGT 11/13: R IJ TLC (DC) 11/13: L Rad Nelia (DC) 11/19: Charles PROPHYLAXIS: VAP - chlorhexidine mouth care in place GI - Pepcid BID po DVT - Mechanical VTE with SCDs. Chemical management with Lovenox 30 BID SQ - cleared and okay with neurosurgery SKIN: Warm and dry Bilateral orbital ecchymosis and edema. ACTIVITY: Status - BR PT and OT ordered. CASE MANAGEMENT: Consulted for assist with DC planning. Placement - disposition - TBD. EMOTIONAL SUPPORT: Provided to patient and family. Plan of care discussed. Questions answered to the best of my knowledge. This patient is currently critically ill and injured and being managed in the ICU. The trauma team will round each day, and evaluate plan of care on a daily basis. Problem Qualifiers (1) Skull fractures: Qualified Codes: S02.91XA - Unspecified fracture of skull, initial encounter for closed fracture (2) Traumatic brain injury: Qualified Codes: S06.9X9D - Unspecified intracranial injury with loss of consciousness of unspecified duration, subsequent encounter Rose Marie Brennan Nov 23, 2016 16:16
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
[2016-11-23] MEDS ORDERED: LEVOFLOXACIN 500 MG PREMIX INJ 100 ML IV SCH (17:00)
[2016-11-23] MEDS ORDERED: 3% SALINE INJ 500 ML IV PRN (17:45)
[2016-11-23] MEDS ORDERED: PIPERACIL-TAZO 3.375 GM PREMIX 50 ML IV SCH (18:00)
[2016-11-23] MEDS: LEVOFLOXACIN 500 MG PREMIX INJ 100 ML IV SCH (20:45)
[2016-11-23] MEDS: MAGNESIUM HYDROXIDE SUSP 30 ML CUP PO SCH (20:46)
[2016-11-23] MEDS: SODIUM CHLORIDE 1 GRAM TAB PO SCH (20:49)
[2016-11-23] MEDS: PIPERACIL-TAZO 3.375 GM PREMIX 50 ML IV SCH (22:01)
[2016-11-24] VITALS (17 sets, daily range): BP systolic 132–160; BP diastolic 60–86; PULSE 71–115; RESP 14–19; TEMP 98.1–100.2; O2SAT 99–100
[2016-11-24] MEDS: METOPROLOL TARTRATE 5 MG/5 ML VIAL IV PUSH SCH ×4 (01:23→20:49)
[2016-11-24] MEDS: SODIUM CHLORIDE 1 GRAM TAB PO SCH ×4 (01:23→20:49)
[2016-11-24] MEDS: PIPERACIL-TAZO 3.375 GM PREMIX 50 ML IV SCH ×4 (04:03→20:48)
[2016-11-24] MEDS: levETIRAcetam INJ 500 MG in SODIUM CHLORIDE 0.9% INJ 100 ML IV SCH (04:04)
[2016-11-24] MEDS: PROPOFOL 1000 MG/100 ML IV PRN ×3 (04:13→18:47)
[2016-11-24] MEDS: hydrALAZINE HCL 20 MG/ML VIAL IV PUSH SCH ×3 (05:33→18:48)
[2016-11-24] MEDS: INSULIN NovoLIN REGULAR SUPPLEMENTAL SCALE SQ SCH ×3 (05:54→18:00)
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
[2016-11-24 07:13] LABS: HEMATOCRIT 26.7 % (39.0-51.0); MEAN CELL VOLUME 99.3 FL (80.0-100.0); MEAN CORPUSCULAR HEMOGLOBIN 33.5 PG (27.0-34.0); MEAN CORPUSCULAR HGB CONC 33.7 % (32.0-36.0); MEAN PLATELET VOLUME 9.1 FL (7.0-11.0); PLATELET COUNT 279 TH/MM3 (150-450); RED BLOOD COUNT 2.69 MIL/MM3 (4.50-5.90); RED CELL DISTRIBUTION WIDTH 18.1 % (11.6-17.2); WHITE BLOOD COUNT 14.8 TH/MM3 (4.0-11.0)
[2016-11-24] MEDS: CHLORHEXIDINE 0.12% (ORAL KIT) 15 ML CUP MT SCH ×2 (08:00→20:50)
[2016-11-24] MEDS: LACTULOSE SYRUP 20 GM/30 ML CUP PO SCH (08:37)
[2016-11-24] MEDS: FAMOTIDINE 20 MG TAB PO SCH ×2 (08:37→20:49)
[2016-11-24] MEDS: SODIUM CHLORIDE 0.9% FLUSH 10 ML FLUSH IV FLUSH SCH ×2 (08:37→20:50)
[2016-11-24] MEDS: DOCUSATE SODIUM 100 MG CAP PO SCH ×2 (08:37→20:50)
--- NOTE | 2016-11-24 08:46 | RADRPT ---
EXAM DATE/TIME: 11/24/2016 07:42 [facility] COMPARISON: CHEST SINGLE AP, November 23, 2016, 5:22. INDICATIONS : Respiratory Failure. MEDICAL HISTORY : None. SURGICAL HISTORY : None. ENCOUNTER: Subsequent ACUITY: 2 weeks PAIN SCORE: Non-responsive. LOCATION: Bilateral chest FINDINGS: The cardiac silhouette is normal in transverse diameter. Support lines and tubes are in satisfactory position. There is subsegmental atelectasis in the left base. No pleural effusions are identified. CONCLUSION: 1. Subsegmental atelectasis left base. There has been no significant change when compared to the prio r exam. Kam Menezes MD on November 24, 2016 at 8:44 Board Certified Radiologist. This report was verified electronically.
--- NOTE | 2016-11-24 09:43 | HHI.NSPN ---
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 A 1.7 cm right temporal parietal subdural hematoma. Contusions are noted in the left cerebellar hemisphere up to 5 cm in size with compression of the fourth ventricle and a contusion is noted in the right temporal lobe. Small contusion cortically in the lower left parietal lobe. He underwent emergent suboccipital decompressive craniectomy, C1 laminectomy for evacuation of cerebellar hematoma, with placement of ventriculostomy drain on 11/13/1611/14: intubated, and very well sedated. sedation lowered pt restless. EVD draining well. ICPs wnl overnight. 11/15: off propofol, remains on fentanyl drip. Moving spontaneously. ICPs stable overnight, EVD draining well. 11/16: off sedation opens eyes, moving all four extremities but not following commands. EVD draining well, ICPs remains wnl. 11/17: remains intubated and sedated. ICPs stable, EVD draining well. f/u CT Brain yesterday completed and reviewed by Dr. Grimm. 11/18: sedated on diprivan, slightly opens eyes to voice. withdraws x 4 extremities but does not follow commands. 11/19: when sedation lowered, opens eyes and withdraws x 4, placed back on sedation for blood pressure control. 11/20: intubated, sedated. EVD draning well, ICPs as high as 10 overnight. nursing reports ?weaker left side today. 11/23: 3% NS restarted wednesday afternoon with improved ICPs. stable over the weekend. repeat CT Head over the weekend completed. 11/24: nursing reports appears to track to voice, moving all four extremities ? weaker on the left, ICPs stable overnight, central line discontinued. (Kathy Moctezuma) Labs, Micro, & Vital Signs Results Date Time Temp Pulse Resp B/P (MAP) Pulse Ox O2 Delivery O2 Flow Rate FiO2 11/24/16 08:00 98.1 88 16 143/82 (102) 99 11/24/16 08:00 40 11/24/16 08:00 84 11/24/16 06:00 106 11/24/16 05:25 99 30 11/24/16 04:00 78 11/24/16 04:00 30 11/24/16 04:00 99.7 78 14 160/74 (102) 99 11/24/16 02:00 76 11/24/16 00:00 30 11/24/16 00:00 82 11/24/16 00:00 100.2 82 19 132/60 (84) 99 11/23/16 23:18 99 30 11/23/16 22:00 80 11/23/16 20:00 99.7 94 18 128/56 (80) 99 11/23/16 20:00 94 11/23/16 20:00 30 11/23/16 18:00 78 11/23/16 16:00 30 11/23/16 16:00 99.3 71 14 157/84 (108) 99 11/23/16 16:00 71 11/23/16 15:44 99 30 11/23/16 14:00 66 11/23/16 12:00 64 11/23/16 12:00 99.3 64 14 152/81 (104) 99 11/23/16 12:00 30 11/23/16 11:37 99 30 11/23/16 10:00 70 Constitutional Vital Signs Date Time Temp Pulse Resp B/P (MAP) Pulse Ox O2 Delivery O2 Flow Rate FiO2 11/24/16 08:00 98.1 88 16 143/82 (102) 99 11/24/16 08:00 40 11/24/16 08:00 84 11/24/16 06:00 106 11/24/16 05:25 99 30 11/24/16 04:00 78 11/24/16 04:00 30 11/24/16 04:00 99.7 78 14 160/74 (102) 99 11/24/16 02:00 76 11/24/16 00:00 30 11/24/16 00:00 82 11/24/16 00:00 100.2 82 19 132/60 (84) 99 11/23/16 23:18 99 30 11/23/16 22:00 80 11/23/16 20:00 99.7 94 18 128/56 (80) 99 11/23/16 20:00 94 11/23/16 20:00 30 11/23/16 18:00 78 11/23/16 16:00 30 11/23/16 16:00 99.3 71 14 157/84 (108) 99 11/23/16 16:00 71 11/23/16 15:44 99 30 11/23/16 14:00 66 11/23/16 12:00 64 11/23/16 12:00 99.3 64 14 152/81 (104) 99 11/23/16 12:00 30 11/23/16 11:37 99 30 11/23/16 10:00 70 (Kathy Moctezuma) Review of Systems ROS Limitations: Intoxication (Kathy Moctezuma) Physical Exam Mr. Villalta is intubated, mildly sedated Eyes open, but does not following commands. Surgical incision healing well, no redness, drainage, swelling or other signs of infection, dressing dry Right ventriculostomy at 15 cm H20, draining well - CSF dark red. ICPs = 4 Cranial Nerves: Pupils 2 mm b/l. Conjugate gaze. Bilateral periorbital ecchymoses, conjunctival hemorrhages improving. Motor: withdraws lower extremities to pain, not following for testing Reflexes: Trace throughout. Positive b/l Babinski. No ankle clonus. Cerebellar: cannot assess due to current clinical condition (Kathy Moctezuma) Medications Current Medications Current Medications Medications (Trade) Dose Ordered Sig/Femi Route PRN Reason Start Time Stop Time Status Last Admin Dose Admin Sodium Chloride (NS Flush) 2 ml UNSCH PRN IV FLUSH FLUSH AFTER USING IV ACCESS 11/13/16 15:00 Sodium Chloride (NS Flush) 2 ml BID IV FLUSH 11/13/16 21:00 11/24/16 08:37 Ondansetron HCl (Zofran Inj) 4 mg Q6H PRN IV NAUSEA OR VOMITING 11/13/16 15:00 Naloxone HCl (Narcan Inj) 0.4 mg UNSCH PRN IV PUSH SEE LABEL COMMENTS 11/13/16 15:00 Levetriacetam 500 mg/Sodium Chloride 105 ml @ 420 mls/hr Q12H IV 11/13/16 16:00 11/24/16 04:04 Bisacodyl (Dulcolax Supp) 10 mg DAILY PRN RECTAL CONSTIPATION 11/13/16 15:00 Docusate Sodium (Colace) 100 mg BID PO 11/13/16 21:00 11/24/16 08:37 Calcium Gluconate (Calcium Gluconate Inj) 1 gm UNSCH PRN IV SEE LABEL COMMENTS 11/13/16 15:00 Potassium Chloride 100 ml @ 50 mls/hr UNSCH PRN IV POTASSIUM LESS THAN 4 11/13/16 15:00 Magnesium Sulfate 4 gm/Sodium Chloride 108 ml @ 108 mls/hr UNSCH PRN IV MAGNESIUM LESS THAN 2 11/13/16 15:00 Morphine Sulfate (Morphine Inj) 2 mg Q2H PRN IV PUSH PAIN SCALE 1 TO 6 11/13/16 15:00 11/22/16 22:28 Morphine Sulfate (Morphine Inj) 4 mg Q2H PRN IV PUSH PAIN SCALE 7 TO 10 11/13/16 15:00 Acetaminophen (Tylenol) 650 mg Q4H PRN PO TEMPERATURE > 101.5 F 11/13/16 15:00 11/23/16 00:29 Propofol 100 ml @ 1.65 mls/hr TITRATE PRN IV SEDATION 11/13/16 20:15 11/24/16 04:13 Dextrose (D50w (Vial) Inj) 25 ml UNSCH PRN IV PUSH HYPOGLYCEMIA-SEE COMMENTS 11/14/16 02:30 Insulin Human Regular (NovoLIN R SUPPLEMENTAL SCALE) 1 Q6HR SQ 11/14/16 06:00 11/23/16 00:13 Chlorhexidine Gluconate (Peridex 0.12% Liq) 15 ml BID@08,20 MT 11/14/16 08:00 11/24/16 08:00 Magnesium Oxide (Mag-Ox) 800 mg UNSCH PRN PO For Magnesium 1.2 - 1.6 mg/dL 11/14/16 02:30 Magnesium Sulfate 4 gm/Sodium Chloride 100 ml @ 50 mls/hr UNSCH PRN IV For Magnesium 0.9 - 1.1 mg/dL 11/14/16 02:30 Magnesium Sulfate 2 gm/Sodium Chloride 100 ml @ 50 mls/hr UNSCH PRN IV For Magnesium 1.2 - 1.6 mg/dL 11/14/16 02:30 Potassium Chloride 100 ml @ 50 mls/hr Q2H PRN IV For Potassium 2.8 - 3.2 mEq/L 11/14/16 02:30 11/17/16 10:35 Potassium Chloride 100 ml @ 50 mls/hr Q2H PRN IV For Potassium 3.3 - 3.5 mEq/L 11/14/16 02:30 Potassium Chloride 100 ml @ 50 mls/hr Q2H PRN IV For Potassium 2.8 - 3.2 mEq/L 11/14/16 02:30 Potassium Chloride 100 ml @ 25 mls/hr UNSCH PRN IV For Potassium 3.3 - 3.5 mEq/L 11/14/16 02:30 11/18/16 04:50 Potassium Phosphate (K-Phos) 2,000 mg Q4H PRN PO For Phosphorus < 2.5 mg/dL 11/14/16 02:30 Potassium Phosphate (K-Phos) 2,000 mg UNSCH PRN PO/TUBE SEE LABEL COMMENTS 11/14/16 02:30 Potassium Phosphate 30 mmol/ Sodium Chloride 260 ml @ 42 mls/hr UNSCH PRN IV SEE LABEL COMMENTS 11/14/16 02:30 Sodium Phosphate 30 mmol/Sodium Chloride 250 ml @ 42 mls/hr UNSCH PRN IV For Phosphorus < 2.5 mg/dL 11/14/16 02:30 Albuterol/ Ipratropium (Duoneb Neb) 1 ampule Q2HR NEB PRN INH WHEEZING 11/14/16 02:30 Magnesium Hydroxide (Milk Of Magnesia Liq) 30 ml HS PO 11/15/16 21:00 11/20/16 20:25 Lactulose (Lactulose Liq) 30 ml DAILY PO 11/15/16 09:00 11/22/16 08:23 Ceftriaxone Sodium 2000 mg/ Sodium Chloride 100 ml @ 200 mls/hr Q24H IV 11/17/16 13:00 11/23/16 13:14 Famotidine (Pepcid) 20 mg BID PO 11/19/16 21:00 11/24/16 08:37 Enoxaparin Sodium (Lovenox Inj) 30 mg Q12H SQ 11/20/16 21:00 Future Hold 11/23/16 20:46 Hydralazine HCl (Apresoline Inj) 10 mg Q6HR IV PUSH 11/22/16 11:00 11/24/16 05:33 Metoprolol Tartrate (Lopressor Inj) 5 mg Q6H IV PUSH 11/22/16 14:00 11/24/16 08:37 Fentanyl (Duragesic 50 Mcg Patch.72 Hr) 1 patch Q3D T-DERMAL 11/22/16 11:00 11/22/16 11:57 Oxycodone/ Acetaminophen (Percocet 5-325 Mg) 1 tab Q6H PRN PO Breakthrough pain 11/22/16 16:00 11/22/16 17:44 Miscellaneous Information 1 Q3D T-DERMAL 11/25/16 11:00 Labetalol HCl (Trandate Inj) 10 mg Q4H PRN IV PUSH SBP>160, DBP>90 11/22/16 23:45 11/23/16 15:56 Levofloxacin/ Dextrose 100 ml @ 100 mls/hr Q24H IV 11/23/16 21:00 11/23/16 20:45 Piperacillin Sod/ Tazobactam Sod 50 ml @ 100 mls/hr Q6H IV 11/23/16 22:00 11/24/16 04:03 Sodium Chloride (Sodium Chloride) 2 gm Q6H PO 11/23/16 20:00 11/24/16 08:37 (Kathy Moctezuma) Medical Decision Making MDM Remarks Middle age 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 A 1.7 cm right temporal parietal subdural hematoma and contusions. Left cerebellar contusions with compression of the fourth ventricle he underwent emergent suboccipital decompressive craniectomy, C1 laminectomy for evacuation of cerebellar hematoma, with placement of ventriculostomy drain on 11/13/16 f/u CT Brain 11/23: decreasing in size of right SDH, improving cerebellar hematoma, otherwise stable compared to CT Head 11/16 (Kathy Moctezuma) Plan Plan Remarks cont EVD challenging, raise to 15 cm H20, cont ICP monitoring which has been stable cont sedation weaning as tolerated, follow up neuro examination cont critical care mgt, vent weaning, ok for tracheostomy from NRS standpoint cont daily dressing changes, monitor wound, sutures dc 11/27/16 Protonix for stress ulcer proph, cont sz prophylaxis (Kathy Moctezuma) Attending Statement The exam, history, and the medical decision-making described in the above note were completed with the assistance of the mid-level provider. I reviewed and agree with the findings presented. I attest that I had a [id number] encounter with the patient on the same day, and personally performed and documented my assessment and findings in the medical record. (Stu Grimm MD) Kathy Moctezuma Nov 24, 2016 09:43 Stu Grimm MD Nov 25, 2016 17:06
[2016-11-24 10:44] LABS: CREATININE 0.57 MG/DL (0.60-1.30)
[2016-11-24 10:45] LABS: BICARBONATE 27.2 MEQ/L (21.0-32.0); CALCIUM 7.8 MG/DL (8.5-10.1)
--- NOTE | 2016-11-24 11:43 | HHI.PR ---
Neuropsych Emotional Emotional: UnabletoAssess: Emotional, Anxious/Fearful, Depressed/Sad, Hostile/ Resentful, Irritable/Angry/Frustrate, Labile, Constricted/Blunted Behavior Behavior: Unable to Asses: Behavior, Coping/Acceptance, Cooperative w/ Treatment, Motivation, Frustration Tolerance/[place], Impulsive/Agitated, Suicidal/ Homicidal Risk Cognitive Cognitive: Unable to Asses: Cognitive, Attention/Concentration, Confused/ Orientation, Insight/Awareness, Judgement/Problem-Solving, Memory Psychosocial Psychosocial: Intact: Psychosocial, Family/Other Adjustment, Realistic Expectation, Unable to Asses: Self-Esteem/Confidence Progress Notes/Response to Tx Contents of Sessions: Adjustment, Level of Consciousness Time with Patient: 30 minutes Premorbid psychological status Premorbid Cognitive, Emotional and Behavioral Status: Stable. The patient is originally from [facility] and has a solid work history prior to this injury. The patient has no psychiatric difficulties, as described above. Substance abuse history is unremarkable. Behavioral Reactions of Patient and Family/Support System: Stable. The patient s family is experiencing ongoing issues of adjustment given the nature of the injury, and this aspect of recovery will require ongoing monitoring. Emotional/Behavioral Status of Patient and Family/Support System: Stable. Pertinent issues, if appropriate to this patients clinical care, are described in detail above. Maximizing acute care outcome It is recommended that the patient be monitored for emergent behavioral impulsivity as the medical condition evolves. This patients neuropathological challenges may limit their rehabilitation potential going forward, and these challenges will require specialized therapeutic skills to maximize outcome. Additionally, the patients family is experiencing ongoing issues of adjustment given the traumatic nature of the injury, and they will need ongoing psychological assistance. Anticipated Problems Ongoing areas of concern will include behavioral impulsivity, lack of insight and judgment, which is expected to improve with time and treatment. Presently , the patient remains intubated and sedated. Treatment Plan This clinician will continue to follow with you throughout the course of this patients acute care treatment, and I will be available to meet with the patient s family/support system to facilitate their understanding and the ongoing care of their family member. The goals of neuropsychological intervention shall be both educational and supportive to the family/support system as is deemed clinically appropriate. [facility] Level: III:Localized response-total assist Impression This is a 61 year old man s/p TBI 2T probable fall. Diagnosis: (1) Major neurocognitive disorder as late effect of traumatic brain injury without behavioral disturbance Status: Acute Progress Note Narrative Ongoing follow-up of patient seen during daily trauma rounds. This is day 11 post injury. The patient remains intubated and sedated, and will need trach/ PEG. He is intermittently awake and tracks but does not follow, withdraws to pain, most consistent with Rancho III. Trauma team consensus is to see from a neurobehavioral standpoint where the patient is after his white count normalizes and he is totally off sedation, and if at that time, we can start a neurostimulant medication if it is clinically indicated. I will continue to follow. Johan Pierson PhD Nov 24, 2016 11:42 am
[2016-11-24] MEDS ORDERED: PROPOFOL 200 MG/20 ML AMP IV ONE (12:00)
[2016-11-24] MEDS: cefTRIAXone INJ 2,000 MG in SODIUM CHLORIDE 0.9% INJ 100 ML IV SCH (12:34)
[2016-11-24] MEDS ORDERED: PROPRANOLOL INJ 1 MG/ML AMP IV PUSH ONE (13:15)
[2016-11-24] MEDS ORDERED: ROCURONIUM INJ 50 MG/5 ML VIAL IV ONE (13:15)
--- NOTE | 2016-11-24 14:55 | HHI.CCPN ---
Subjective Brief History [place]: This is a 61-year-old male found in his apartment face down with massive injuries to the head brought in as priority 1 trauma alert and resuscitated. He is taken immediately to CT scan after resuscitation. He is found to have massive intracranial injuries including skull fracture, bleeding in the right cerebellar hemisphere, compression of the flow of the cerebrospinal fluid, hemorrhages in the cerebral area and some air. He also has a large subdural hematoma on the right. The patient is taken immediately to the operating room and he will come to the ICU after the decompression. Discussed this with Dr. Grimm. 24 Hour Review/Hospital Course 11/14/16 Patient underwent craniotomy and evacuation of the right posterior fossa hematoma In addition patient has a tear in the transfer sinus which is now clotted off Patient is now any ICU and remains on neuroprotective measures including Propofol/fentanyl 3% saline with sodium around 155 mEq per liter [facility] [place] Coma Scale remains 3-4 ICP 12 mmHg and controllable Centra perfusion pressure has been adequate without any administration of vasopressors based on measurements of mean arterial pressure 11/15/16 Patient is neurologically somewhat improved and Ma[place] Coma Scale is about 6-7 Patient doesn't follow commands however he opens his eyes and moves all 4 extremities spontaneously This is a significant improvement in last 24 hours Remains off propofol Sodium adequate and with normal ICP hypertonic saline has been discontinued as well Repeat CT scan of the brain tomorrow 11/16/16 Patient with severe brain injuries on repeat CT scan he is residual subdural and subarachnoid hemorrhage intraparenchymal hemorrhages and brain contusions Moves all 4 extremities when now sedation indication [place] Coma Scale around 5 Patient remains on neuroprotective measures including propofol and fentanyl ICP 8-12 mmHg 11/17/16 Neurologic status unchanged On sedation vacation patient is moving all 4 extremities but doesn't open eyes or tracs ICP remains low around 8-12 mmHg Patient remains on small dose propofol and fentanyl for pain Will start on antihypertensive some further decrease the propofol 11/18/16 sedation holiday-open eyes,moving all 4 extremities ICP/CPP-wnl propofol/fentanyl 11/19/16 open eyes,moving all 4 extremities on sedation holiday ICP/CPP-controlled tolerating tube feeds started propranolol 11/20/2016 PTD: 7 Weaning sedation slowly. Opens eyes. Pt moves all extremities, but not yet to command. ICP = 1-7, He had an episode overnight were ICP increased to 16 with turning for a linen change. Discussed with daughter at bedside. 11/21/16 No change in neurologic status On sedation vacation patient moves all 4 extremities but doesn't follow any commands and does not track ICP remains low Withdrawal of hypertonic saline resulted in increase it of intracranial pressure so this has been restarted Neuroprotective measures including Propofol/fentanyl Hypertonic saline at 3% 20 cc an hour At this point there is no where to go as far as decreasing any of these and we' ll just leave everything is a distal tomorrow and then try to decrease hypertonic saline again 11/22/16 No change in neurologic status Place patient on sedation vacation from propofol and he is opening eyes but doesn't track does not follow any commands ICP remains low and patient has responding central perfusion pressure which is adequate in the range of mean arterial pressure Hypertensive and therefore placed on Lopressor and hydralazine This patient has been in the unit for 9 days and at this point decision-making comes to tracheostomy and PEG and I discussed this with his daughter Depending on patient's progress in next 24-48 hrs, patient will likely be scheduled for tracheostomy 11/23/2016 PTD: 10 Patient remains sedated and mechanically ventilated. Opens eyes. Spoke with daughter at bedside to prepare for trach placement either today or tomorrow. Additionally patient will need PEG placement. 11/24/16 With sedation vacation patient is moving all 4 extremities opening eyes and according to the nurse tracking which is a great improvement Maikel Coma Scale on sedation medications about 7 or patient doesn't follow commands Level of consciousness does not allow extubation therefore tracheostomy has been performed at the bedside today Bilateral good breath sounds and good inspiratory effort I'll try to wean patient off the ventilator in next few days the tracheostomy is in place Abdomen is soft with active bowel sounds and patient is scheduled to have PEG today Medical critical care help is greatly appreciated and adjustment of antibiotics appropriate Objective Vital Signs Date Time Temp Pulse Resp B/P (MAP) Pulse Ox O2 Delivery O2 Flow Rate FiO2 11/24/16 12:00 40 11/24/16 12:00 71 11/24/16 12:00 99.4 16 146/83 (104) 100 Arterial Line Intake and Output 11/24/16 11/24/16 11/25/16 08:00 16:00 00:00 Intake Total 960.8 ml 65 ml Output Total 712 ml Balance 248.8 ml 65 ml Result Diagram: 11/24/16 0700 11/24/16 0500 Imaging Last 24 hours Impressions Chest X-Ray 11/24/16 0000 Signed Impressions: Service Date/Time: Thursday, November 24, 2016 07:42 - CONCLUSION: 1. Subsegmental atelectasis left base. There has been no significant change when compared to the prior exam. Kam Menezes MD Exam [employer] With sedation vacation patient is moving all 4 extremities opening eyes and according to the nurse tracking which is a great improvement [place] Coma Scale on sedation medications about 7 or patient doesn't follow commands Level of consciousness does not allow extubation therefore tracheostomy has been performed at the bedside today Hemodynamic/Cardiac Hemodynamically patient remains stable Pulmonary/Respiratory Bilateral good breath sounds and good inspiratory effort Blue [place] tracheostomy place today I'll try to wean patient off the ventilator in next few days the tracheostomy is in place Abdomen/GI Nutrition Abdomen is soft with active bowel sounds and patient is scheduled to have PEG today Medical critical care help is greatly appreciated and adjustment of antibiotics appropriate Renal/I&O Preserved renal function patient requiring some sodium chloride pills to keep sodium above 140 mEq per liter Central line removed in face of discontinuation of hypertonic saline and increased white count Vascular Central Line Catheter Date of Insertion: Nov 13, 2016 Line: Central Venous Catheter Side: Right Location: Internal Assessment and Plan Assessment: (1) Skull fractures ICD Code: S02.91XA - Unspecified fracture of skull, initial encounter for closed fracture Status: Acute (2) Intracranial hemorrhage ICD Code: I62.9 - Nontraumatic intracranial hemorrhage, unspecified Status: Acute (3) Major neurocognitive disorder as late effect of traumatic brain injury without behavioral disturbance ICD Code: S06.9X9S - Unspecified intracranial injury with loss of consciousness of unspecified duration, sequela; F02.80 - Dementia in other diseases classified elsewhere without behavioral disturbance Status: Acute (4) Traumatic brain injury ICD Code: S06.9X9A - Unspecified intracranial injury with loss of consciousness of unspecified duration, initial encounter Status: Acute Plan [place]: This is a 61-year-old male who was found down at home with obvious scalp laceration and raccoon eyes. GCS 5-6. Obtunded. Intubated in the ED. + Cannabis. INJURIES: Skull fx SDH (temporal and parietal) LEFT cerebral contusions (w/compression of 4th ventricle) RIGHT temporal contusion LEFT parietal lobe contusion Procedures: 11/13: Intubated in the ED 11/13: Suboccipital craniectomy Consults: CCM. Neurosurgery. Rehabilitation medicine. Neuropsych. Case management. Assessment and plan by system: NEUROLOGICAL: 11/13: Suboccipital craniectomy Sedated with propofol gtt. Opens eyes Moves all extremities well, but not yet to command. Sedation vacations daily to assess weaning capability. Pt is sedated with a RASS score of -2 Provide analgesia for comfort and pain. Fentanyl 50 mg patch. Percocet 5 mg every 6 hours PRN Serial neuro checks. 11/16: CT brain: Stable post OR - Interval left occipital craniectomy with pneumocephalus, intraparenchymal hemorrhage, subdural hemorrhage and subarachnoid hemorrhage 11/23: Ct brain - stable EVD - Ventriculoscopy ICP = 5-7. Seizure precautions. Seizure prophylaxis - IV Keppra 3% saline - discontinued. NA = 144 HOB elevated 30 degrees - + peripheral pulses x 4 extremities. CARDIOVASCULAR: HR - 60-66 sinus bradycardia BP - 152/81 Continually monitor for hemodynamic instability (shock and hypotension). BP meds - Lopressor q 6h. Hydralazine 10 mg q 6h. Volume status - +883. Follow CMP - Electrolyte status - Electrolyte protocol - in place RESPIRATORY: 11/13: Intubated in the ED Vent settings- 500 / 14 / 30% / 1.0 / +5 Sats = 97% Increase PEEP carefully (to assist in oxygenation by recruiting alveoli.) Weaning - will attempt CPAP trials once ICPs are better controlled and patient is more awake and following commands Consider tracheostomy if patient unable to wean from the ventilator. O2 Sats - Monitor for hypoxemia Goal of end tital CO2 = 35-40 Follow ABGs - Lung sounds - CTA Pulmonary toilet - L&S. Bronchodilators - Breathing treatments - duonebs. Chest X-Ray results - minimal bibasilar dependent airspace disease. Stable. Sputum culture - echoli Antibiotics - Rocephin IV VAP protocol in place - Labs tomorrow Chest X-Ray tomorrow GASTROINTESTINAL: Diet - Jevity at 60 ml/hr. TF - minimal residuals Bowel sounds - + x 4 quads Bowel regimen - Colace. MOM. Lactulose. Bisacodyl TX LBM - 102 GI consult for PEG placement RENAL / URINARY: Strict I&O - +883 BUN / creat 19 / 0.45 Maintain charles for strict diagnosis - Charles in place to bedside drainage bag Urine culture - neg ENDOCRINE: BGM - 122 via am labs SSI HEMATOLOGY: H&H 8.5 / 25.7 Continue to monitor for signs and symptoms of bleeding. Evaluate need for IVC filter. Transfuse for < 7.0 Monitor patient for any bleeding complications. Started Lovenox for DVT prophylaxis - okay with neurosurgery INFECTIOUS DISEASE: Follow CBC Monitor for signs and symptoms of infection: WBC - 18.8 [place] culture today. Provide pt with a line holiday. Remove Central line and A line Low grade fevers Administer antipyretics for temp as needed. IV abx: Rocephin 11/23: Sputum 11/23: Blood - 11/23: Urine: 11/19: Urine - neg 11/15: Sputum - Ecoli 11/15: Blood - NEG 11/13: CSF - NEG Monitor for pneumonia evolution with repeat chest X-Rays as needed. Maintain vigorous aseptic care of central line to avoid blood stream infections. Consider a consult to ID for further management IV LINES: 11/13: Ventric 11/13: ETT 11/13: OGT 11/13: R IJ TLC (DC) 11/13: L Rad Nelia (DC) 11/19: Charles PROPHYLAXIS: VAP - chlorhexidine mouth care in place GI - Pepcid BID po DVT - Mechanical VTE with SCDs. Chemical management with Lovenox 30 BID SQ - cleared and okay with neurosurgery SKIN: Warm and dry Bilateral orbital ecchymosis and edema. ACTIVITY: Status - BR PT and OT ordered. CASE MANAGEMENT: Consulted for assist with DC planning. Placement - disposition - TBD. EMOTIONAL SUPPORT: Provided to patient and family. Plan of care discussed. Questions answered to the best of my knowledge. This patient is currently critically ill and injured and being managed in the ICU. The trauma team will round each day, and evaluate plan of care on a daily basis. Attestation Critical care time 40 minutes Problem Qualifiers (1) Skull fractures: Qualified Codes: S02.91XA - Unspecified fracture of skull, initial encounter for closed fracture (2) Traumatic brain injury: Qualified Codes: S06.9X9D - Unspecified intracranial injury with loss of consciousness of unspecified duration, subsequent encounter Tayler Hitchcock MD Nov 24, 2016 14:55
--- NOTE | 2016-11-24 15:27 | GIPROC ---
[facility] [address] [facility]. [facility], [address] EGD PROCEDURE REPORT EXAM DATE: 11/24/2016 PATIENT NAME: Chuy Briseno MR #: [id number] BIRTHDATE: 1955 ATTENDING: Haven Wade MD ORDER #: [id number] CIVIL PREPAREDNESS COORDINATOR: Ирина Luther and Garret Bernstein STATUS: inpatient INDICATIONS: The patient is a 61 yr old male here for an EGD due to dysphagia, feeding difficulties PROCEDURE PERFORMED: EGD w/ biopsy MEDICATIONS: None and Per Anesthesia. TOPICAL ANESTHETIC: CONSENT: The patient understands the risks and benefits of the procedure and understands that these risks include, but are not limited to: sedation, allergic reaction, infection, perforation and/or bleeding. Alternative means of evaluation and treatment include, among others: physical exam, x-rays, and/or surgical intervention. The patient elects to proceed with this endoscopic procedure. medical equipment was checked for proper function. Hand hygiene and appropriate measures for infection prevention was taken. After the risks, benefits and alternatives of the procedure were thoroughly explained, Informed consent was verified, confirmed and timeout was successfully executed by the treatment team. The patient was anesthetized with topical anesthesia and the Pentax [id number] endoscope was introduced through the mouth and advanced to the proximal jejunum. Retroflexion was not performed The gastroscope was then slowly withdrawn and removed. Partial gastrectomy, s/p billroth II gastritis antrum-biopsy esophagitis dital esophagus-biopsy NGT placed 2. Retroflexion was not performed RECOMMENDATIONS: Consult surgery for j tube placement, doubt IR will be able to place start tf PATIENT CONDITION: stable DISPOSITION: Inpatient REPEAT EXAM: Return as needed for EGD Haven Wade MD eSigned: Haven Wade MD 11/24/2016 3:27 PM cc:
--- NOTE | 2016-11-24 15:27 | GIPROC ---
[facility] [address] [facility]. [facility], [address] EGD PROCEDURE REPORT EXAM DATE: 11/24/2016 PATIENT NAME: Chuy Briseno MR #: [id number] BIRTHDATE: 1955 ATTENDING: Haven Wade MD ORDER #: [id number] BANQUET BARTENDER: Ирина Luther and Garret Bernstein STATUS: inpatient INDICATIONS: The patient is a 61 yr old male here for an EGD due to dysphagia, feeding difficulties PROCEDURE PERFORMED: EGD w/ biopsy MEDICATIONS: None and Per Anesthesia. TOPICAL ANESTHETIC: CONSENT: The patient understands the risks and benefits of the procedure and understands that these risks include, but are not limited to: sedation, allergic reaction, infection, perforation and/or bleeding. Alternative means of evaluation and treatment include, among others: physical exam, x-rays, and/or surgical intervention. The patient elects to proceed with this endoscopic procedure. medical equipment was checked for proper function. Hand hygiene and appropriate measures for infection prevention was taken. After the risks, benefits and alternatives of the procedure were thoroughly explained, Informed consent was verified, confirmed and timeout was successfully executed by the treatment team. The patient was anesthetized with topical anesthesia and the Pentax [id number] endoscope was introduced through the mouth and advanced to the proximal jejunum. Retroflexion was not performed The gastroscope was then slowly withdrawn and removed. Partial gastrectomy, s/p billroth II gastritis antrum-biopsy esophagitis dital esophagus-biopsy NGT placed 2. Retroflexion was not performed RECOMMENDATIONS: Consult surgery for j tube placement, doubt IR will be able to place start tf PATIENT CONDITION: stable DISPOSITION: Inpatient REPEAT EXAM: Return as needed for EGD Haven Wade MD eSigned: Haven Wade MD 11/24/2016 3:27 PM cc:
--- NOTE | 2016-11-24 15:27 | GIPROC ---
[facility] [address] [facility]. [facility], [address] EGD PROCEDURE REPORT EXAM DATE: 11/24/2016 PATIENT NAME: Chuy Briseno MR #: [id number] BIRTHDATE: 1955 ATTENDING: Haven Wade MD ORDER #: [id number] RISK INVESTIGATOR: Ирина Luther and Garret Bernstein STATUS: inpatient INDICATIONS: The patient is a 61 yr old male here for an EGD due to dysphagia, feeding difficulties PROCEDURE PERFORMED: EGD w/ biopsy MEDICATIONS: None and Per Anesthesia. TOPICAL ANESTHETIC: CONSENT: The patient understands the risks and benefits of the procedure and understands that these risks include, but are not limited to: sedation, allergic reaction, infection, perforation and/or bleeding. Alternative means of evaluation and treatment include, among others: physical exam, x-rays, and/or surgical intervention. The patient elects to proceed with this endoscopic procedure. medical equipment was checked for proper function. Hand hygiene and appropriate measures for infection prevention was taken. After the risks, benefits and alternatives of the procedure were thoroughly explained, Informed consent was verified, confirmed and timeout was successfully executed by the treatment team. The patient was anesthetized with topical anesthesia and the Pentax [id number] endoscope was introduced through the mouth and advanced to the proximal jejunum. Retroflexion was not performed The gastroscope was then slowly withdrawn and removed. Partial gastrectomy, s/p billroth II gastritis antrum-biopsy esophagitis dital esophagus-biopsy NGT placed 2. Retroflexion was not performed RECOMMENDATIONS: Consult surgery for j tube placement, doubt IR will be able to place start tf PATIENT CONDITION: stable DISPOSITION: Inpatient REPEAT EXAM: Return as needed for EGD Haven Wade MD eSigned: Haven Wade MD 11/24/2016 3:27 PM cc:
--- NOTE | 2016-11-24 15:55 | PD.CONS ---
Consult Service Palliative Care Consult Requested By Dr. Cobian Primary Care Physician Unknown Reason for Consultation a. To assist with evaluation and management of symptoms including: Pain, dyspnea b. To assist medical decision maker(s) with: better understanding of current medical conditions; weighing benefits/burdens of medical treatment options; making medical treatment decisions. HPI History of Present Illness This is a 61 year old male brought to [place] as a trauma alert under [facility] 11/13/16, after being found down at home by family with an obvious scalp hematoma to the posterior part of his head, unconscious. Per my discussion with his daughter, Pascual Briseno, her grandmother had contacted her that she was unable to help her father get up. The daughter came immediately to the home to find her father lying upstairs in the hallway in a pool of blood. Blood was found on his bed, down stairs near the entry way and several other places in the home. She describes her father as unconscious at that time. Emergency services were summoned, to include the [place] [employer] who is still investigating. He was emergently intubated in the ED and underwent left suboccipital craniectomy with evacuation of cerebellar hemorrhage and placement of a ventriculostomy catheter via a right frontal manas hole. He is seen in the intensive care unit status post tracheostomy. ED course: * Laboratory - WBC 16.9, hemoglobin 13.6, hematocrit 41.5, platelets 146, prothrombin time 11.7, INR of 1.1, sodium 135, potassium 4.3, BUN 11, creatinine 0.7, glucose 203, ethyl alcohol less than 3 Consultations: * Neurosurgery - following ventriculostomy drain, continuing intensive treatment. * Dog License Officer Supervisor - continuing intensive care, vent management. * Rehabilitation- Dr. Martínez following managing PT for range of motion to maintain rehabilitation potential. * Gastroenterology - plan for EGD and PEG placement 11/24 if stable. At this evaluation patient is mechanically ventilated, sedated, status post tracheostomy. No response to painful stimuli in all 4 extremities. Reportedly agitated when sedation is lightened. Spoke with daughter Pascual, and plan for family meeting this afternoon was made. . Function/Cognitive Trajectory This is a 61-year-old male who was fully functional, still working and taking his granddaughters to [facility] 2-4 times a month prior to his admission. He was his mother's caregiver, due to her Alzheimer's dementia, and frequently cooked large family meals for his children and grandchildren. 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 Review of Systems ROS Limitations: Clinical Condition, Intubated, Unresponsive Past Family Social History Coded Allergies: No Known Allergies (Unverified , 11/13/16) Past Medical History Remote hx of perforated ulcer Past Surgical History Partial gastrectomy Reported Medications No medications taken on a regular basis. . Current Medications Medications (Trade) Dose Ordered Sig/Femi Route Start Time Stop Time Status Last Admin (NS Flush) 2 ml UNSCH PRN IV FLUSH 11/13/16 15:00 (NS Flush) 2 ml BID IV FLUSH 11/13/16 21:00 11/24/16 08:37 (Zofran Inj) 4 mg Q6H PRN IV 11/13/16 15:00 (Narcan Inj) 0.4 mg UNSCH PRN IV PUSH 11/13/16 15:00 (Dulcolax Supp) 10 mg DAILY PRN RECTAL 11/13/16 15:00 (Colace) 100 mg BID PO 11/13/16 21:00 11/24/16 08:37 (Calcium Gluconate Inj) 1 gm UNSCH PRN IV 11/13/16 15:00 Potassium Chloride 100 ml @ 50 mls/hr UNSCH PRN IV 11/13/16 15:00 Magnesium Sulfate 4 gm/Sodium Chloride 108 ml @ 108 mls/hr UNSCH PRN IV 11/13/16 15:00 (Morphine Inj) 2 mg Q2H PRN IV PUSH 11/13/16 15:00 11/22/16 22:28 (Morphine Inj) 4 mg Q2H PRN IV PUSH 11/13/16 15:00 (Tylenol) 650 mg Q4H PRN PO 11/13/16 15:00 11/23/16 00:29 Propofol 100 ml @ 1.65 mls/hr TITRATE PRN IV 11/13/16 20:15 11/24/16 12:41 (D50w (Vial) Inj) 25 ml UNSCH PRN IV PUSH 11/14/16 02:30 (NovoLIN R SUPPLEMENTAL SCALE) 1 Q6HR SQ 11/14/16 06:00 11/23/16 00:13 (Peridex 0.12% Liq) 15 ml BID@08,20 MT 11/14/16 08:00 11/24/16 08:00 (Mag-Ox) 800 mg UNSCH PRN PO 11/14/16 02:30 Magnesium Sulfate 4 gm/Sodium Chloride 100 ml @ 50 mls/hr UNSCH PRN IV 11/14/16 02:30 Magnesium Sulfate 2 gm/Sodium Chloride 100 ml @ 50 mls/hr UNSCH PRN IV 11/14/16 02:30 Potassium Chloride 100 ml @ 50 mls/hr Q2H PRN IV 11/14/16 02:30 11/17/16 10:35 Potassium Chloride 100 ml @ 50 mls/hr Q2H PRN IV 11/14/16 02:30 Potassium Chloride 100 ml @ 50 mls/hr Q2H PRN IV 11/14/16 02:30 Potassium Chloride 100 ml @ 25 mls/hr UNSCH PRN IV 11/14/16 02:30 11/18/16 04:50 (K-Phos) 2,000 mg Q4H PRN PO 11/14/16 02:30 (K-Phos) 2,000 mg UNSCH PRN PO/TUBE 11/14/16 02:30 Potassium Phosphate 30 mmol/ Sodium Chloride 260 ml @ 42 mls/hr UNSCH PRN IV 11/14/16 02:30 Sodium Phosphate 30 mmol/Sodium Chloride 250 ml @ 42 mls/hr UNSCH PRN IV 11/14/16 02:30 (Duoneb Neb) 1 ampule Q2HR NEB PRN INH 11/14/16 02:30 (Milk Of Magnesia Liq) 30 ml HS PO 11/15/16 21:00 11/20/16 20:25 (Lactulose Liq) 30 ml DAILY PO 11/15/16 09:00 11/22/16 08:23 Ceftriaxone Sodium 2000 mg/ Sodium Chloride 100 ml @ 200 mls/hr Q24H IV 11/17/16 13:00 11/24/16 12:34 (Pepcid) 20 mg BID PO 11/19/16 21:00 11/24/16 08:37 (Lovenox Inj) 30 mg Q12H SQ 11/20/16 21:00 Future Hold 11/23/16 20:46 (Apresoline Inj) 10 mg Q6HR IV PUSH 11/22/16 11:00 10/3/17 05:33 (Lopressor Inj) 5 mg Q6H IV PUSH 11/22/16 14:00 11/24/16 08:37 (Duragesic 50 Mcg Patch.72 Hr) 1 patch Q3D T-DERMAL 11/22/16 11:00 11/22/16 11:57 (Percocet 5-325 Mg) 1 tab Q6H PRN PO 11/22/16 16:00 11/22/16 17:44 Miscellaneous Information 1 Q3D T-DERMAL 11/25/16 11:00 (Trandate Inj) 10 mg Q4H PRN IV PUSH 11/22/16 23:45 11/23/16 15:56 Levofloxacin/ Dextrose 100 ml @ 100 mls/hr Q24H IV 11/23/16 21:00 11/23/16 20:45 Piperacillin Sod/ Tazobactam Sod 50 ml @ 100 mls/hr Q6H IV 11/23/16 22:00 11/24/16 09:47 (Sodium Chloride) 2 gm Q6H PO 11/23/16 20:00 11/24/16 08:37 . Family History His mother is alive and well at 82 with Alzheimer's dementia. His father at age 81 of cancer. He has 3 living daughters. Substance Use Tobacco: Smokes approximately one half pack per day for most of his life. Alcohol: He drinks wine with dinner. Prescription med abuse: He uses no prescription medications. Illicits: He smokes marijuana occasionally. . Psychosocial History He was born in [place] and lived in many countries around the world, moving to the [facility] in 1997 to settle in [place]. 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 He currently works at [email or web address]. He speaks multiple languages to include Uzbek, Chinese, Tuvaluan, Singaporean and Guyanese. He lives with his mother to provide care for her, as she has Alzheimer 's dementia. . Spiritual/Cultural Factors He is [place] and would appreciate [facility] visits. Living Will: Never completed Health Care Surrogate: Never completed Durable Power of Tobacco Scrap Sifter: Never completed Physical Exam Vital Signs Date Time Temp Pulse Resp B/P (MAP) Pulse Ox O2 Delivery O2 Flow Rate FiO2 11/24/16 12:00 40 11/24/16 12:00 71 11/24/16 12:00 99.4 71 16 146/83 (104) 100 Arterial Line 11/24/16 10:00 73 11/24/16 09:49 100 35 11/24/16 08:00 98.1 88 16 143/82 (102) 99 11/24/16 08:00 40 11/24/16 08:00 84 11/24/16 06:00 106 11/24/16 05:25 99 30 11/24/16 04:00 78 11/24/16 04:00 30 11/24/16 04:00 99.7 78 14 160/74 (102) 99 11/24/16 02:00 76 11/24/16 00:00 30 11/24/16 00:00 82 11/24/16 00:00 100.2 82 19 132/60 (84) 99 11/23/16 23:18 99 30 11/23/16 22:00 80 11/23/16 20:00 99.7 94 18 128/56 (80) 99 11/23/16 20:00 94 11/23/16 20:00 30 11/23/16 18:00 78 11/23/16 16:00 30 11/23/16 16:00 99.3 71 14 157/84 (108) 99 11/23/16 16:00 71 11/23/16 15:44 99 30 11/24/16 11/25/16 19:00 07:00 Intake Total 65 ml Balance 65 ml Intake IV Total 65 ml Exam CONSTITUTIONAL/GENERAL: This is a thin middle-aged male, lying in bed, sedated, mechanically ventilated, not responsive. TUBES/LINES/DRAINS: Left radial art line, right upper arm PIV, right antecubital PIV, triple-lumen right IJ SKIN: No jaundice, rashes, or lesions. No wounds seen anteriorly. Skin temperature appropriate. Not diaphoretic. HEAD: Right cranial incision healing well, right ventriculostomy. EYES: Pupils 2 mm, equal and round and reactive. NECK: Trachea midline. Midline tracheostomy. CARDIOVASCULAR: Regular rate and rhythm without murmurs, gallops, or rubs. No JVD. Peripheral pulses symmetric. RESPIRATORY/CHEST: Symmetric, unlabored respirations. Clear to auscultation. Breath sounds equal bilaterally. No wheezes, rales, or rhonchi. GASTROINTESTINAL: Abdomen soft, nondistended. No hepato-splenomegaly, or palpable masses. Palpable aortic pulse. Bowel sounds present. GENITOURINARY: Without palpable bladder distension. Clark catheter in place. MUSCULOSKELETAL: Extremities without clubbing, cyanosis, or edema. No mottling or clubbing. NEUROLOGICAL: Sedated, not responding to noxious stimuli. PSYCHIATRIC: Sedated. . Diagnostic Tests Laboratory Laboratory Tests Test 11/21/16 18:08 11/21/16 23:00 11/22/16 05:00 11/22/16 14:00 Sodium Level 146 MEQ/L (136-145) 145 MEQ/L (136-145) 146 MEQ/L (136-145) 146 MEQ/L (136-145) Serum Osmolality 308 MOSM/KG (275-295) White Blood Count 10.9 TH/MM3 (4.0-11.0) Red Blood Count 2.51 MIL/MM3 (4.50-5.90) Hemoglobin 8.4 GM/DL (13.0-17.0) Hematocrit 25.2 % (39.0-51.0) Mean Corpuscular Volume 100.3 FL (80.0-100.0) Mean Corpuscular Hemoglobin 33.6 PG (27.0-34.0) Mean Corpuscular Hemoglobin Concent 33.5 % (32.0-36.0) Red Cell Distribution Width 18.1 % (11.6-17.2) Platelet Count 226 TH/MM3 (150-450) Mean Platelet Volume 9.4 FL (7.0-11.0) Neutrophils (%) (Auto) 59.4 % (16.0-70.0) Lymphocytes (%) (Auto) 22.1 % (9.0-44.0) Monocytes (%) (Auto) 17.0 % (0.0-8.0) Eosinophils (%) (Auto) 1.0 % (0.0-4.0) Basophils (%) (Auto) 0.5 % (0.0-2.0) Neutrophils # (Auto) 6.5 TH/MM3 (1.8-7.7) Lymphocytes # (Auto) 2.4 TH/MM3 (1.0-4.8) Monocytes # (Auto) 1.8 TH/MM3 (0-0.9) Eosinophils # (Auto) 0.1 TH/MM3 (0-0.4) Basophils # (Auto) 0.1 TH/MM3 (0-0.2) CBC Comment AUTO DIFF Differential Total Cells Counted 100 Neutrophils % (Manual) 69 % (16-70) Lymphocytes % 17 % (9-44) Monocytes % 6 % (0-8) Eosinophils % 1 % (0-4) Basophils % 1 % (0-2) Neutrophils # (Manual) 8.0 TH/MM3 (1.8-7.7) Myelocytes 3 % (0-0) Promyelocytes 1 % (0-0) Nucleated Red Blood Cells 2 /100 WBC (0-0) Differential Comment FINAL DIFF MANUAL Plasma Cells 2 % (0-0) Platelet Estimate NORMAL (NORMAL) Platelet Morphology Comment NORMAL (NORMAL) Blood Urea Nitrogen 20 MG/DL (7-18) Creatinine 0.43 MG/DL (0.60-1.30) Random Glucose 108 MG/DL (74-106) Total Protein 4.9 GM/DL (6.4-8.2) Albumin 1.7 GM/DL (3.4-5.0) Calcium Level 7.5 MG/DL (8.5-10.1) Alkaline Phosphatase 70 U/L (45-117) Aspartate Amino Transf (AST/SGOT) 44 U/L (15-37) Alanine Aminotransferase (ALT/SGPT) 37 U/L (12-78) Total Bilirubin 0.4 MG/DL (0.2-1.0) Potassium Level 4.2 MEQ/L (3.5-5.1) Chloride Level 113 MEQ/L (98-107) Carbon Dioxide Level 30.0 MEQ/L (21.0-32.0) Anion Gap 3 MEQ/L (5-15) Estimat Glomerular Filtration Rate 202 ML/MIN (>89) Test 11/22/16 17:50 11/22/16 23:00 11/23/16 05:00 11/23/16 11:00 Sodium Level 145 MEQ/L (136-145) 145 MEQ/L (136-145) 144 MEQ/L (136-145) 144 MEQ/L (136-145) White Blood Count 18.8 TH/MM3 (4.0-11.0) Red Blood Count 2.58 MIL/MM3 (4.50-5.90) Hemoglobin 8.5 GM/DL (13.0-17.0) Hematocrit 25.7 % (39.0-51.0) Mean Corpuscular Volume 99.7 FL (80.0-100.0) Mean Corpuscular Hemoglobin 33.1 PG (27.0-34.0) Mean Corpuscular Hemoglobin Concent 33.2 % (32.0-36.0) Red Cell Distribution Width 17.7 % (11.6-17.2) Platelet Count 261 TH/MM3 (150-450) Mean Platelet Volume 9.2 FL (7.0-11.0) Neutrophils (%) (Auto) 76.2 % (16.0-70.0) Lymphocytes (%) (Auto) 12.3 % (9.0-44.0) Monocytes (%) (Auto) 10.7 % (0.0-8.0) Eosinophils (%) (Auto) 0.4 % (0.0-4.0) Basophils (%) (Auto) 0.4 % (0.0-2.0) Neutrophils # (Auto) 14.3 TH/MM3 (1.8-7.7) Lymphocytes # (Auto) 2.3 TH/MM3 (1.0-4.8) Monocytes # (Auto) 2.0 TH/MM3 (0-0.9) Eosinophils # (Auto) 0.1 TH/MM3 (0-0.4) Basophils # (Auto) 0.1 TH/MM3 (0-0.2) CBC Comment AUTO DIFF Differential Total Cells Counted 100 Neutrophils % (Manual) 71 % (16-70) Band Neutrophils % 9 % (0-6) Lymphocytes % 9 % (9-44) Monocytes % 10 % (0-8) Neutrophils # (Manual) 15.2 TH/MM3 (1.8-7.7) Myelocytes 1 % (0-0) Nucleated Red Blood Cells 1 /100 WBC (0-0) Differential Comment FINAL DIFF MANUAL Platelet Estimate NORMAL (NORMAL) Platelet Morphology Comment NORMAL (NORMAL) Polychromasia 2.0 % (0.0-1.9) Blood Urea Nitrogen 19 MG/DL (7-18) Creatinine 0.45 MG/DL (0.60-1.30) Random Glucose 122 MG/DL (74-106) Total Protein 5.3 GM/DL (6.4-8.2) Albumin 1.8 GM/DL (3.4-5.0) Calcium Level 7.7 MG/DL (8.5-10.1) Alkaline Phosphatase 85 U/L (45-117) Aspartate Amino Transf (AST/SGOT) 47 U/L (15-37) Alanine Aminotransferase (ALT/SGPT) 42 U/L (12-78) Total Bilirubin 0.4 MG/DL (0.2-1.0) Potassium Level 4.0 MEQ/L (3.5-5.1) Chloride Level 110 MEQ/L (98-107) Carbon Dioxide Level 28.7 MEQ/L (21.0-32.0) Anion Gap 5 MEQ/L (5-15) Estimat Glomerular Filtration Rate 192 ML/MIN (>89) Test 11/23/16 16:00 11/23/16 23:00 11/24/16 05:00 11/24/16 07:00 Sodium Level 143 MEQ/L (136-145) 145 MEQ/L (136-145) 146 MEQ/L (136-145) Blood Urea Nitrogen 23 MG/DL (7-18) Creatinine 0.57 MG/DL (0.60-1.30) Random Glucose 110 MG/DL (74-106) Calcium Level 7.8 MG/DL (8.5-10.1) Potassium Level 4.1 MEQ/L (3.5-5.1) Chloride Level 112 MEQ/L (98-107) Carbon Dioxide Level 27.2 MEQ/L (21.0-32.0) Anion Gap 7 MEQ/L (5-15) Estimat Glomerular Filtration Rate 146 ML/MIN (>89) White Blood Count 14.8 TH/MM3 (4.0-11.0) Red Blood Count 2.69 MIL/MM3 (4.50-5.90) Hemoglobin 9.0 GM/DL (13.0-17.0) Hematocrit 26.7 % (39.0-51.0) Mean Corpuscular Volume 99.3 FL (80.0-100.0) Mean Corpuscular Hemoglobin 33.5 PG (27.0-34.0) Mean Corpuscular Hemoglobin Concent 33.7 % (32.0-36.0) Red Cell Distribution Width 18.1 % (11.6-17.2) Platelet Count 279 TH/MM3 (150-450) Mean Platelet Volume 9.1 FL (7.0-11.0) . Result Diagram: 11/24/16 0700 11/24/16 0500 Microbiology Microbiology Date/Time Source Procedure Growth Status 11/24/16 06:00 Blood Peripheral Aerobic Blood Culture Pending Received 11/24/16 06:00 Blood Peripheral Anaerobic Blood Culture Pending Received 11/24/16 05:55 Blood Peripheral Aerobic Blood Culture Pending Received 11/24/16 05:55 Blood Peripheral Anaerobic Blood Culture Pending Received 11/23/16 18:00 Sputum Endotracheal Gram Stain - Final Resulted 11/23/16 18:00 Sputum Culture - Preliminary Gram Negative Chris Resulted 11/23/16 18:00 Urine Catheterized Urine Urine Culture Pending Received . Imaging Last Impressions Chest X-Ray 11/24/16 0000 Signed Impressions: Service Date/Time: Thursday, November 24, 2016 07:42 - CONCLUSION: 1. Subsegmental atelectasis left base. There has been no significant change when compared to the prior exam. Kam Menezes MD Head CT 11/23/16 0600 Signed Impressions: Service Date/Time: Wednesday, November 23, 2016 04:23 - CONCLUSION: Multifocal intracranial hemorrhage as above, stable and/or decreasing in the interim. The 17 mm thick extra-axial blood on the right is potentially epidural but is stable. No new blood seen. No midline shift or ventriculomegaly. Pneumocephaly has resolved. Fabien Rodríguez MD Maxillofacial CT 11/13/16 1316 Signed Impressions: Service Date/Time: Sunday, November 13, 2016 13:11 - CONCLUSION: Air-fluid level with admixture of air and fluid in the left sphenoid sinus compartment. Otherwise negative. Acute fracture is not identified. Yariel Odell MD Thoracic Spine CT 11/13/16 1311 Signed Impressions: Service Date/Time: Sunday, November 13, 2016 13:15 - CONCLUSION: No fracture or subluxation. Bobby Rasmussen MD Lumbar Spine CT 11/13/16 1311 Signed Impressions: Service Date/Time: Sunday, November 13, 2016 13:15 - CONCLUSION: 1. No acute fracture. Spinal canal and neural foramen appear to be adequate throughout. 2. Dextroscoliosis of the lumbar spine with mild associated degenerative changes 3. Diverticular disease of the sigmoid without diverticulitis Aftab Cramer MD Chest CT 11/13/161310 Signed Impressions: Service Date/Time: Sunday, November 13, 2016 13:17 - CONCLUSION: 1. Negative CT scan of the thorax. Chuy Fitzpatrick MD Cervical Spine CT 11/13/161310 Signed Impressions: Service Date/Time: Sunday, November 13, 2016 13:13 - CONCLUSION: 1. No acute fracture the cervical spine identified. There are degenerative changes as above. 2. There is fracture of the right side of the occipital bone. There is subdural hematoma in the posterior fossa on the right and intraparenchymal hemorrhage within the left cerebellar hemisphere. This was assessed by CT imaging of the brain. Chuy Fitzpatrick MD Abdomen/Pelvis CT 11/13/161310 Signed Impressions: Service Date/Time: Sunday, November 13, 2016 13:17 - CONCLUSION: Disproportionate dilatation of small bowel in the mid and upper abdomen relatively: Most consistent with ileus pattern. Surgical absence of the gallbladder with 2 cysts in the right lobe of the liver. Uncomplicated diverticuli of the sigmoid colon. 3 cm right testicle epididymal cyst.. Yariel Odell MD . Procedures 11/13/16 - intubation 11/13/16 - right frontal manas hole with placement of ventriculostomy catheter 11/13/16- left suboccipital craniectomy, evacuation of cerebellar hemorrhage. . Patient/Family Conference Present at Family Conference: Daughter Susana, patient's mother attended in person and conference in daughter , Sloan and Charlene. We reviewed the items listed below and discussed patient's current medical condition, circumstances surrounding his admission and patient' s goals of care. Per that discussion, due to the acute nature of his injuries, family would like to continue aggressive care at this time to determine what level of function the patient can recover to. As he was previously very active they are hopeful that he can regain enough function to continue to enjoy his children and grandchildren. Family Conference Time (mins): 30 Family Conference Location: Consult Room Issues Discussed: * Palliative care role, purpose, approach * Additional medical, psychosocial, and spiritual history * Patients general health, functional status, and cognitive changes in the months leading up to the current hospitalization * Patient/family understanding of the current medical problems * Patient/family understanding of prognosis * Patients goals of care as best understood from advance directives and/or conversations and/or values * Current medical treatment options and benefits/burdens of those options * Likely scenarios comparing ongoing aggressive care with a transition to comfort measures only * Questions answered to the best of my ability * Palliative care contact information provided Assessment and Plan Disease Oriented Problem List: (1) Status post craniectomy (2) Traumatic brain injury (3) Skull fractures (4) Intracranial hemorrhage (5) Major neurocognitive disorder as late effect of traumatic brain injury without behavioral disturbance Symptom Scale: (1) Dyspnea and respiratory abnormalities 0-10 Scale: Unable to quantify (2) Pain, generalized 0-10 Scale: Unable to quantify Pertinent Non-Medical Issues Psychosocial:He was born in [facility] and lived in many countries around the world, moving to the [facility] in 1997 to settle in [place]. 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 He currently works at [email or web address]. He speaks multiple languages to include Uzbek, Chinese, Tuvaluan , Singaporean and Guyanese. He lives with his mother to provide care for her, as she has Alzheimer's dementia. Spiritual: He was raised [place] and would appreciate [facility] visits. Legal: He has 3 daughters who will serve as joint healthcare proxies. His mother has Alzheimer's dementia and is unable to participate in decision-making. Ethical issues impacting care: Circumstances surrounding patient's injury are not known, however, The [place] police are investigating and would like to speak with him regarding the circumstances once he is conscious and able to communicate. Important Contacts Susana Briseno - [phone] Sloan Briseno - [phone] Charlene Briesno - [phone] . Prognosis His prognosis is guarded. He has suffered an extensive head injury and is currently requiring mechanical ventilation. It is expected that he has a very long rehabilitation course ahead of him, should he survive this ICU admission. His hospital course is expected to be extended and he is likely to have sequelae of severe head trauma. Code Status: Full Code Plan PLAN: Legal decision maker: He has 3 daughters, Sloan Briseno, Charlene Briseno and Susana Briseno Goals: Aggressive CODE STATUS: Full code SYMPTOMS: * Pain - currently receiving fentanyl patch with as needed Percocet and morphine. He is currently sedated on propofol, making pain assessment difficult. He will require frequent nursing assessments to evaluate changes in posture, countenance for possible pain. * Dyspnea - remains mechanically ventilated via tracheostomy. Remains at risk for dyspnea due to possible aspiration, potential infection, immobility. Receiving scheduled DuoNeb. Summary: In summary this is an unfortunate 61-year-old male status post head trauma of unknown source, mechanically ventilated status post craniectomy with ventriculostomy. He is at risk for sequelae of head trauma, prolonged immobility and mechanical ventilation. It is expected his hospital course extended with similarly extended rehabilitation course, with risk for the multiple sequela of serious disease. Palliative care will continue to follow the patient during hospital course as condition evolves, to assist patient/decision-maker with understanding of their medical conditions, weighing benefits/burdens of treatment options, for clarification of goals of treatment. Additionally will assist with any symptoms of palliative concern Thank you for the opportunity to participate in the care of Mr. Briseno. Attestation To help prompt me to consider important information that might be impacting today's encounter and assessment, information from prior notes written by myself or my colleagues may have been "brought forward" into today's note. My signature on this note, however, is an attestation that I personally performed the exam, history, and/or decision-making noted today, and, unless otherwise indicated, the interactions with patient, family, and staff as well as the review of records all occurred today. I also attest that the listed assessment and stated plan reflect my best clinical judgment today based on the combination of historical information, prior notes, and today's exam/ interactions. When time spent is documented, it refers only to time spent today by the signer, or if indicated, combined time spent today by collaborating physician/nurse practitioner. Norma Goodrich Nov 24, 2016 3:31 pm
--- NOTE | 2016-11-24 18:19 | MP ---
cc: TAYLER TONG MD DATE OF SURGERY 11/24/2016 PREOPERATIVE DIAGNOSIS Traumatic brain injury, respiratory failure. POSTOPERATIVE DIAGNOSIS Traumatic brain injury, respiratory failure. PROCEDURE Blue rhino tracheostomy SURGEON Dr. Tong PERIANESTHESIA RN Dr. Raphael Glez ANESTHESIA Rocuronium, fentanyl, propofol. ESTIMATED BLOOD LOSS Minimal. DETAILS OF PROCEDURE The patient prepped and draped in the usual fashion. The area infiltrated with 1% Xylocaine. Incision made anterior neck, opened with a hemostat down to the trachea. Needle inserted within the second and third tracheal ring and through the angiocath guidewire was introduced into the distal trachea. While monitoring the whole procedure was bronchoscoped. Over the wire the punch dilator was placed followed by the blue rhino dilator and then the 8 Shiley cannula. This one is connected to the ventilator, end-tidal CO2 checked and the patient bronchoscoped. For positioning purposes the cannula was sutured with 2-0 Prolene and secured with tape around the neck. The patient tolerated the procedure well. Tayler Tong SJ/KK /2:56 PM /6:07 PM
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
--- NOTE | 2016-11-24 18:33 | PD.PROCEDR ---
Procedure Note Procedure Procedure: Diagnostic Fiberoptic Bronchoscopy Diagnosis: Chronic Respiratory failure Indications: Chronic respiratory failure requiring percutaneous dilation tracheostomy Consent: Obtained Anesthesia: Propofol IV Description of the Procedure: The patient was sedated and mechanically ventilated. The patient was placed on 100% FIO2 and a volume control mode of ventilation. The fiberoptic bronchoscopy was inserted via 7.0 oral endotracheal tube. The trachea, right and left mainstem bronchi, and sub- segmental bronchi were evaluated. The endobronchial anatomy was normal. Findings: Minimal thin secretions. Under direct visualization, the percutaneous dilation tracheostomy was performed. Please see separate procedure note for tracheostomy details. BAL samples: Were not sent The patient tolerated the procedure well with no hemodynamic instability or hypoxia. There were no immediate complications noted. At the conclusion of the procedure, the patient was placed back on their pre-procedure ventilatory settings. There was minimal EBL. A chest x-ray has been ordered. I personally performed the procedure. Eric Kelly MD Nov 24, 2016 18:33
[2016-11-24] MEDS: LEVOFLOXACIN 500 MG PREMIX INJ 100 ML IV SCH (20:48)
[2016-11-24] MEDS: MAGNESIUM HYDROXIDE SUSP 30 ML CUP PO SCH (20:50)
[2016-11-25] VITALS (18 sets, daily range): BP systolic 119–153; BP diastolic 74–97; PULSE 66–107; RESP 18–25; TEMP 97–99.9; O2SAT 99–100
[2016-11-25] MEDS: hydrALAZINE HCL 20 MG/ML VIAL IV PUSH SCH ×4 (00:06→17:33)
[2016-11-25] MEDS: PROPOFOL 1000 MG/100 ML IV PRN (00:27)
[2016-11-25] MEDS: METOPROLOL TARTRATE 5 MG/5 ML VIAL IV PUSH SCH ×4 (01:39→20:31)
[2016-11-25] MEDS: SODIUM CHLORIDE 1 GRAM TAB PO SCH ×4 (01:39→20:31)
[2016-11-25] MEDS: PIPERACIL-TAZO 3.375 GM PREMIX 50 ML IV SCH ×4 (03:47→21:54)
[2016-11-25 04:18] LABS: AUTOMATED NEUTROPHIL # 11.4 TH/MM3 (1.8-7.7); BASOPHIL # 0.1 TH/MM3 (0-0.2); BASOPHIL % 0.5 % (0.0-2.0); EOSINOPHIL # 0.1 TH/MM3 (0-0.4); EOSINOPHIL % 0.8 % (0.0-4.0); HEMATOCRIT 28.4 % (39.0-51.0); HEMOGLOBIN 9.5 GM/DL (13.0-17.0); LYMPH % 9.9 % (9.0-44.0); LYMPHOCYTE # 1.4 TH/MM3 (1.0-4.8); MEAN CELL VOLUME 99.4 FL (80.0-100.0); MEAN CORPUSCULAR HEMOGLOBIN 33.3 PG (27.0-34.0); MEAN CORPUSCULAR HGB CONC 33.5 % (32.0-36.0); MEAN PLATELET VOLUME 9.4 FL (7.0-11.0); MONO % 9.2 % (0.0-8.0); MONOCYTE # 1.3 TH/MM3 (0-0.9); NEUT % 79.6 % (16.0-70.0); PLATELET COUNT 275 TH/MM3 (150-450); RED BLOOD COUNT 2.86 MIL/MM3 (4.50-5.90); RED CELL DISTRIBUTION WIDTH 18.3 % (11.6-17.2); WHITE BLOOD COUNT 14.4 TH/MM3 (4.0-11.0)
[2016-11-25 04:41] LABS: ALBUMIN 1.9 GM/DL (3.4-5.0); AST (GOT) 56 U/L (15-37); BICARBONATE 25.7 MEQ/L (21.0-32.0); BLOOD UREA NITROGEN 22 MG/DL (7-18); CHLORIDE 110 MEQ/L (98-107); CREATININE 0.55 MG/DL (0.60-1.30); GLOMERULAR FILTRATION RATE 152 ML/MIN (>89); GLUCOSE,RANDOM 107 MG/DL (74-106); SODIUM (NA) 144 MEQ/L (136-145)
[2016-11-25 04:45] LABS: ALKALINE PHOSPHATASE 86 U/L (45-117); ALT (GPT) 48 U/L (12-78); TOTAL BILIRUBIN ADULT 0.6 MG/DL (0.2-1.0); TOTAL PROTEIN 5.9 GM/DL (6.4-8.2)
[2016-11-25] MEDS: INSULIN NovoLIN REGULAR SUPPLEMENTAL SCALE SQ SCH ×4 (06:00→17:36)
[2016-11-25] MEDS: CHLORHEXIDINE 0.12% (ORAL KIT) 15 ML CUP MT SCH ×2 (08:21→20:33)
[2016-11-25] MEDS: LACTULOSE SYRUP 20 GM/30 ML CUP PO SCH (09:00)
[2016-11-25] MEDS ORDERED: SODIUM BICARBONATE 8.4% INJ 50 ML ONE (10:04)
[2016-11-25] MEDS: FAMOTIDINE 20 MG TAB PO SCH ×2 (10:14→20:31)
[2016-11-25] MEDS: DOCUSATE SODIUM 100 MG CAP PO SCH ×2 (10:15→20:32)
[2016-11-25] MEDS: SODIUM CHLORIDE 0.9% FLUSH 10 ML FLUSH IV FLUSH SCH ×2 (10:15→20:32)
[2016-11-25] MEDS: REMOVE OLD DURAGESIC (FENTANYL) PATCH T-DERMAL SCH (10:23)
[2016-11-25] MEDS: fentaNYL 50 MCG/HR PATCH T-DERMAL SCH (10:24)
[2016-11-25] MEDS: cefTRIAXone INJ 2,000 MG in SODIUM CHLORIDE 0.9% INJ 100 ML IV SCH (13:16)
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
--- NOTE | 2016-11-25 16:06 | HHI.HCPN ---
Reason for visit a. To assist with evaluation and management of symptoms including: Pain, dyspnea b. To assist medical decision maker(s) with: better understanding of current medical conditions; weighing benefits/burdens of medical treatment options; making medical treatment decisions. Subjective/Interval History This is a 61 year old male brought to [place] as a trauma alert under Trino Carlisle 11/13/16, after being found down at home by family with an obvious scalp hematoma to the posterior part of his head, unconscious. Per my discussion with his daughter, Sloan Briseno, her grandmother had contacted her that she was unable to help her father get up. The daughter came immediately to the home to find her father lying upstairs in the hallway in a pool of blood. Blood was found on his bed, down stairs near the entry way and several other places in the home. She describes her father as unconscious at that time. Emergency services were summoned, to include the [place] [employer] who is still investigating. He was emergently intubated in the ED and underwent left suboccipital craniectomy with evacuation of cerebellar hemorrhage and placement of a ventriculostomy catheter via a right frontal manas hole. He is seen in the intensive care unit status post tracheostomy. Interim history 11/24 Dr. Wade attempted placement of an endoscopic PEG tube unsuccessfully. 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 He underwent bronchoscopy by Dr. Kelly and placement of tracheostomy by Dr. Hitchcock. 11/25 he underwent successful open placement of jejunostomy tube by Dr. Hitchcock. At this evaluation his eyes are open but do not focus or engage. Sometimes he appears to blink to direction and sometimes spontaneously. He is unable to move fingers or toes at this evaluation. . Advance Directives Living Will: Never completed Health Care Surrogate: Never completed Durable Power of Fitter'S Assistant: Never completed Objective Vital Signs Date Time Temp Pulse Resp B/P (MAP) Pulse Ox O2 Delivery O2 Flow Rate FiO2 11/25/16 12:40 100 30 11/25/16 11:09 100 100 11/25/16 10:00 76 11/25/16 09:14 100 40 11/25/16 08:00 92 11/25/16 06:00 84 11/25/16 04:31 100 40 11/25/16 04:00 76 11/25/16 04:00 97.5 76 19 144/81 (102) 100 11/25/16 04:00 40 11/25/16 02:00 66 11/25/16 00:00 40 11/25/16 00:00 80 11/25/16 00:00 98.2 80 18 120/74 (89) 100 11/24/16 23:52 100 40 11/24/16 22:00 76 11/24/16 20:10 100 40 11/24/16 20:00 40 11/24/16 20:00 76 11/24/16 20:00 99.0 76 18 137/84 (101) 100 11/24/16 18:00 75 11/24/16 17:25 100 40 11/24/16 16:00 99.2 78 18 142/86 (104) 99 11/24/16 16:00 78 11/24/16 16:00 40 Intake & Output 11/25/16 11/25/16 07:00 19:00 Intake Total 355 ml 600 ml Output Total 900 ml 20 ml Balance -545 ml 580 ml Intake IV Total 295 ml Tube Feeding 0 ml Other 60 ml 600 ml Output Urine Total 750 ml Stool Total 50 ml Drainage Total 100 ml Estimated Blood Loss 20 ml Physical Exam CONSTITUTIONAL/GENERAL: This is a thin middle-aged male, lying in bed, ventilated via tracheostomy, eyes open. TUBES/LINES/DRAINS: Left radial art line, right upper arm PIV, right antecubital PIV, triple-lumen right IJ, J tube SKIN: No jaundice, rashes, or lesions. Skin temperature appropriate. Not diaphoretic. HEAD: Right cranial incision healing well, right ventriculostomy. EYES: Pupils 2 mm, equal and round and reactive. NECK: Trachea midline. Midline tracheostomy. CARDIOVASCULAR: Regular rate and rhythm without murmurs, gallops, or rubs. Peripheral pulses symmetric. RESPIRATORY/CHEST: Symmetric, unlabored respirations. Clear to auscultation. Breath sounds equal bilaterally. No wheezes, rales, or rhonchi. GASTROINTESTINAL: Abdomen soft, nondistended. No hepato-splenomegaly, or palpable masses. Palpable aortic pulse. Bowel sounds present. J-tube clamped. GENITOURINARY: Without palpable bladder distension. Clark catheter in place. MUSCULOSKELETAL: Extremities without clubbing, cyanosis, or edema. No mottling or clubbing. NEUROLOGICAL: eyes open, blinking, sometimes spontaneously, sometimes appears to be to command. PSYCHIATRIC: Calm . Diagnostic Tests Laboratory Laboratory Tests Test 11/22/16 17:50 11/22/16 23:00 11/23/16 05:00 11/23/16 11:00 Sodium Level 145 MEQ/L (136-145) 145 MEQ/L (136-145) 144 MEQ/L (136-145) 144 MEQ/L (136-145) White Blood Count 18.8 TH/MM3 (4.0-11.0) Red Blood Count 2.58 MIL/MM3 (4.50-5.90) Hemoglobin 8.5 GM/DL (13.0-17.0) Hematocrit 25.7 % (39.0-51.0) Mean Corpuscular Volume 99.7 FL (80.0-100.0) Mean Corpuscular Hemoglobin 33.1 PG (27.0-34.0) Mean Corpuscular Hemoglobin Concent 33.2 % (32.0-36.0) Red Cell Distribution Width 17.7 % (11.6-17.2) Platelet Count 261 TH/MM3 (150-450) Mean Platelet Volume 9.2 FL (7.0-11.0) Neutrophils (%) (Auto) 76.2 % (16.0-70.0) Lymphocytes (%) (Auto) 12.3 % (9.0-44.0) Monocytes (%) (Auto) 10.7 % (0.0-8.0) Eosinophils (%) (Auto) 0.4 % (0.0-4.0) Basophils (%) (Auto) 0.4 % (0.0-2.0) Neutrophils # (Auto) 14.3 TH/MM3 (1.8-7.7) Lymphocytes # (Auto) 2.3 TH/MM3 (1.0-4.8) Monocytes # (Auto) 2.0 TH/MM3 (0-0.9) Eosinophils # (Auto) 0.1 TH/MM3 (0-0.4) Basophils # (Auto) 0.1 TH/MM3 (0-0.2) CBC Comment AUTO DIFF Differential Total Cells Counted 100 Neutrophils % (Manual) 71 % (16-70) Band Neutrophils % 9 % (0-6) Lymphocytes % 9 % (9-44) Monocytes % 10 % (0-8) Neutrophils # (Manual) 15.2 TH/MM3 (1.8-7.7) Myelocytes 1 % (0-0) Nucleated Red Blood Cells 1 /100 WBC (0-0) Differential Comment FINAL DIFF MANUAL Platelet Estimate NORMAL (NORMAL) Platelet Morphology Comment NORMAL (NORMAL) Polychromasia 2.0 % (0.0-1.9) Blood Urea Nitrogen 19 MG/DL (7-18) Creatinine 0.45 MG/DL (0.60-1.30) Random Glucose 122 MG/DL (74-106) Total Protein 5.3 GM/DL (6.4-8.2) Albumin 1.8 GM/DL (3.4-5.0) Calcium Level 7.7 MG/DL (8.5-10.1) Alkaline Phosphatase 85 U/L (45-117) Aspartate Amino Transf (AST/SGOT) 47 U/L (15-37) Alanine Aminotransferase (ALT/SGPT) 42 U/L (12-78) Total Bilirubin 0.4 MG/DL (0.2-1.0) Potassium Level 4.0 MEQ/L (3.5-5.1) Chloride Level 110 MEQ/L (98-107) Carbon Dioxide Level 28.7 MEQ/L (21.0-32.0) Anion Gap 5 MEQ/L (5-15) Estimat Glomerular Filtration Rate 192 ML/MIN (>89) Test 11/23/16 16:00 11/23/16 23:00 11/24/16 05:00 11/24/16 07:00 Sodium Level 143 MEQ/L (136-145) 145 MEQ/L (136-145) 146 MEQ/L (136-145) Blood Urea Nitrogen 23 MG/DL (7-18) Creatinine 0.57 MG/DL (0.60-1.30) Random Glucose 110 MG/DL (74-106) Calcium Level 7.8 MG/DL (8.5-10.1) Potassium Level 4.1 MEQ/L (3.5-5.1) Chloride Level 112 MEQ/L (98-107) Carbon Dioxide Level 27.2 MEQ/L (21.0-32.0) Anion Gap 7 MEQ/L (5-15) Estimat Glomerular Filtration Rate 146 ML/MIN (>89) White Blood Count 14.8 TH/MM3 (4.0-11.0) Red Blood Count 2.69 MIL/MM3 (4.50-5.90) Hemoglobin 9.0 GM/DL (13.0-17.0) Hematocrit 26.7 % (39.0-51.0) Mean Corpuscular Volume 99.3 FL (80.0-100.0) Mean Corpuscular Hemoglobin 33.5 PG (27.0-34.0) Mean Corpuscular Hemoglobin Concent 33.7 % (32.0-36.0) Red Cell Distribution Width 18.1 % (11.6-17.2) Platelet Count 279 TH/MM3 (150-450) Mean Platelet Volume 9.1 FL (7.0-11.0) Test 11/25/16 03:56 White Blood Count 14.4 TH/MM3 (4.0-11.0) Red Blood Count 2.86 MIL/MM3 (4.50-5.90) Hemoglobin 9.5 GM/DL (13.0-17.0) Hematocrit 28.4 % (39.0-51.0) Mean Corpuscular Volume 99.4 FL (80.0-100.0) Mean Corpuscular Hemoglobin 33.3 PG (27.0-34.0) Mean Corpuscular Hemoglobin Concent 33.5 % (32.0-36.0) Red Cell Distribution Width 18.3 % (11.6-17.2) Platelet Count 275 TH/MM3 (150-450) Mean Platelet Volume 9.4 FL (7.0-11.0) Neutrophils (%) (Auto) 79.6 % (16.0-70.0) Lymphocytes (%) (Auto) 9.9 % (9.0-44.0) Monocytes (%) (Auto) 9.2 % (0.0-8.0) Eosinophils (%) (Auto) 0.8 % (0.0-4.0) Basophils (%) (Auto) 0.5 % (0.0-2.0) Neutrophils # (Auto) 11.4 TH/MM3 (1.8-7.7) Lymphocytes # (Auto) 1.4 TH/MM3 (1.0-4.8) Monocytes # (Auto) 1.3 TH/MM3 (0-0.9) Eosinophils # (Auto) 0.1 TH/MM3 (0-0.4) Basophils # (Auto) 0.1 TH/MM3 (0-0.2) CBC Comment DIFF FINAL Differential Comment Blood Urea Nitrogen 22 MG/DL (7-18) Creatinine 0.55 MG/DL (0.60-1.30) Random Glucose 107 MG/DL (74-106) Total Protein 5.9 GM/DL (6.4-8.2) Albumin 1.9 GM/DL (3.4-5.0) Calcium Level 8.0 MG/DL (8.5-10.1) Alkaline Phosphatase 86 U/L (45-117) Aspartate Amino Transf (AST/SGOT) 56 U/L (15-37) Alanine Aminotransferase (ALT/SGPT) 48 U/L (12-78) Total Bilirubin 0.6 MG/DL (0.2-1.0) Sodium Level 144 MEQ/L (136-145) Potassium Level 4.0 MEQ/L (3.5-5.1) Chloride Level 110 MEQ/L (98-107) Carbon Dioxide Level 25.7 MEQ/L (21.0-32.0) Anion Gap 8 MEQ/L (5-15) Estimat Glomerular Filtration Rate 152 ML/MIN (>89) . Result Diagram: 11/25/16 0356 11/25/16 0356 Microbiology Microbiology Date/Time Source Procedure Growth Status 11/24/16 06:00 Blood Peripheral Aerobic Blood Culture - Preliminary NO GROWTH IN 1 DAY Resulted 11/24/16 06:00 Blood Peripheral Anaerobic Blood Culture - Preliminary NO GROWTH IN 1 DAY Resulted 11/24/16 05:55 Blood Peripheral Aerobic Blood Culture - Preliminary NO GROWTH IN 1 DAY Resulted 11/24/16 05:55 Blood Peripheral Anaerobic Blood Culture - Preliminary NO GROWTH IN 1 DAY Resulted 11/23/16 18:00 Sputum Endotracheal Gram Stain - Final Complete 11/23/16 18:00 Sputum Culture - Final Escherichia Coli Complete 11/23/16 18:00 Urine Catheterized Urine Urine Culture - Final NO GROWTH IN 48 HOURS. Complete . Procedures 11/25/16 - J-tube placed via open approach. 11/24/16 - tracheostomy placement 11/24/16 - attempted esophageal PEG placement, failed. 11/13/16 - intubation 11/13/16 - right frontal manas hole with placement of ventriculostomy catheter 11/13/16- left suboccipital craniectomy, evacuation of cerebellar hemorrhage. . Assessment and Plan Disease Oriented Problem List: (1) Status post craniectomy (2) Traumatic brain injury (3) Skull fractures (4) Intracranial hemorrhage (5) Major neurocognitive disorder as late effect of traumatic brain injury without behavioral disturbance Symptom Scale: (1) Dyspnea and respiratory abnormalities 0-10 Scale: Unable to quantify (2) Pain, generalized 0-10 Scale: Unable to quantify Pertinent Non-Medical Issues Psychosocial:He was born in [place] and lived in many countries around the [place], moving to the [facility] in 1997 to settle in [place]. 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 He currently works at [employer]. He speaks multiple languages to include Yakut, Northern Irish, Tajik , E[place]an and [place]ian. He lives with his mother to provide care for her, as she has Alzheimer's dementia. Spiritual: He was raised Taoism and would appreciate [facility] visits. Legal: He has 3 daughters who will serve as joint healthcare proxies. His mother has Alzheimer's dementia and is unable to participate in decision-making. Ethical issues impacting care: Circumstances surrounding patient's injury are not known, however, The [place] police are investigating and would like to speak with him regarding the circumstances once he is conscious and able to communicate. Important Contacts Susana Briseno - [phone] Sloan Briseno - [phone] Charlene Briseno - [phone] . Prognosis His prognosis is guarded. He has suffered an extensive head injury and is currently requiring mechanical ventilation. It is expected that he has a very long rehabilitation course ahead of him, should he survive this ICU admission. His hospital course is expected to be extended and he is likely to have sequelae of severe head trauma. Code Status: Full Code Plan PLAN: Legal decision maker: He has 3 daughters, Sloan Briseno, Charlene Briseno and Susnaa Briseno Goals: Aggressive CODE STATUS: Full code SYMPTOMS: * Pain - currently receiving fentanyl patch with as needed Percocet and morphine. He has just returned from OR and his post anesthesia, making pain assessment difficult. He is unable to communicate his needs. He will require frequent nursing assessments to evaluate changes in posture, countenance for possible pain. * Dyspnea - remains mechanically ventilated via tracheostomy. Remains at risk for dyspnea due to possible aspiration, potential infection, immobility. Receiving scheduled DuoNeb. Palliative care will continue to follow the patient during hospital course as condition evolves, to assist patient/decision-maker with understanding of their medical conditions, weighing benefits/burdens of treatment options, for clarification of goals of treatment. Additionally will assist with any symptoms of palliative concern Attestation To help prompt me to consider important information that might be impacting today's encounter and assessment, information from prior notes written by myself or my colleagues may have been "brought forward" into today's note. My signature on this note, however, is an attestation that I personally performed the exam, history, and/or decision-making noted today, and, unless otherwise indicated, the interactions with patient, family, and staff as well as the review of records all occurred today. I also attest that the listed assessment and stated plan reflect my best clinical judgment today based on the combination of historical information, prior notes, and today's exam/ interactions. When time spent is documented, it refers only to time spent today by the signer, or if indicated, combined time spent today by collaborating physician/nurse practitioner. . Norma Goodrich Nov 25, 2016 4:06 pm
--- NOTE | 2016-11-25 17:10 | HHI.CCPN ---
Subjective Brief History TOHONO O'ODHAM: This is a 61-year-old male found in his apartment face down with massive injuries to the head brought in as priority 1 trauma alert and resuscitated. He is taken immediately to CT scan after resuscitation. He is found to have massive intracranial injuries including skull fracture, bleeding in the right cerebellar hemisphere, compression of the flow of the cerebrospinal fluid, hemorrhages in the cerebral area and some air. He also has a large subdural hematoma on the right. The patient is taken immediately to the operating room and he will come to the ICU after the decompression. Discussed this with Dr. Grimm. 24 Hour Review/Hospital Course 11/14/16 Patient underwent craniotomy and evacuation of the right posterior fossa hematoma In addition patient has a tear in the transfer sinus which is now clotted off Patient is now any ICU and remains on neuroprotective measures including Propofol/fentanyl 3% saline with sodium around 155 mEq per liter [facility] [place] Coma Scale remains 3-4 ICP 12 mmHg and controllable Centra perfusion pressure has been adequate without any administration of vasopressors based on measurements of mean arterial pressure 11/15/16 Patient is neurologically somewhat improved and Maikel Coma Scale is about 6-7 Patient doesn't follow commands however he opens his eyes and moves all 4 extremities spontaneously This is a significant improvement in last 24 hours Remains off propofol Sodium adequate and with normal ICP hypertonic saline has been discontinued as well Repeat CT scan of the brain tomorrow 11/16/16 Patient with severe brain injuries on repeat CT scan he is residual subdural and subarachnoid hemorrhage intraparenchymal hemorrhages and brain contusions Moves all 4 extremities when now sedation indication Maikel Coma Scale around 5 Patient remains on neuroprotective measures including propofol and fentanyl ICP 8-12 mmHg 11/17/16 Neurologic status unchanged On sedation vacation patient is moving all 4 extremities but doesn't open eyes or tracs ICP remains low around 8-12 mmHg Patient remains on small dose propofol and fentanyl for pain Will start on antihypertensive some further decrease the propofol 11/18/16 sedation holiday-open eyes,moving all 4 extremities ICP/CPP-wnl propofol/fentanyl 11/19/16 open eyes,moving all 4 extremities on sedation holiday ICP/CPP-controlled tolerating tube feeds started propranolol 11/20/2016 PTD: 7 Weaning sedation slowly. Opens eyes. Pt moves all extremities, but not yet to command. ICP = 1-7, He had an episode overnight were ICP increased to 16 with turning for a linen change. Discussed with daughter at bedside. 11/21/16 No change in neurologic status On sedation vacation patient moves all 4 extremities but doesn't follow any commands and does not track ICP remains low Withdrawal of hypertonic saline resulted in increase it of intracranial pressure so this has been restarted Neuroprotective measures including Propofol/fentanyl Hypertonic saline at 3% 20 cc an hour At this point there is no where to go as far as decreasing any of these and we' ll just leave everything is a distal tomorrow and then try to decrease hypertonic saline again 11/22/16 No change in neurologic status Place patient on sedation vacation from propofol and he is opening eyes but doesn't track does not follow any commands ICP remains low and patient has responding central perfusion pressure which is adequate in the range of mean arterial pressure Hypertensive and therefore placed on Lopressor and hydralazine This patient has been in the unit for 9 days and at this point decision-making comes to tracheostomy and PEG and I discussed this with his daughter Depending on patient's progress in next 24-48 hrs, patient will likely be scheduled for tracheostomy 11/23/2016 PTD: 10 Patient remains sedated and mechanically ventilated. Opens eyes. Spoke with daughter at bedside to prepare for trach placement either today or tomorrow. Additionally patient will need PEG placement. 11/24/16 With sedation vacation patient is moving all 4 extremities opening eyes and according to the nurse tracking which is a great improvement Maikel Coma Scale on sedation medications about 7 or patient doesn't follow commands Level of consciousness does not allow extubation therefore tracheostomy has been performed at the bedside today Bilateral good breath sounds and good inspiratory effort I'll try to wean patient off the ventilator in next few days the tracheostomy is in place Abdomen is soft with active bowel sounds and patient is scheduled to have PEG today Medical critical care help is greatly appreciated and adjustment of antibiotics appropriate 11/25/16 No change in current status Patient is opening eyes moving all 4 extremities and apparently tracking occasionally Underwent successful tracheostomy and is gone be weaned off the ventilator if the next few days PEG could not be performed due to 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 and therefore I'll take the patient today for open jejunostomy placement Abdomen soft Bilateral breath sounds slightly diminished over the bases Hemodynamically remains stable Objective Vital Signs Date Time Temp Pulse Resp B/P (MAP) Pulse Ox O2 Delivery O2 Flow Rate FiO2 11/25/16 16:41 100 40 11/25/16 16:00 97.7 107 25 132/82 (99) Intake and Output 11/25/16 11/25/16 11/25/16 07:59 15:59 23:59 Intake Total 355 ml 600 ml Output Total 900 ml 20 ml Balance -545 ml 580 ml Result Diagram: 11/25/16 0356 11/25/16 0356 Other Results Microbiology Date/Time Source Procedure Growth Status 11/23/16 18:00 Sputum Endotracheal Gram Stain - Final Complete 11/23/16 18:00 Sputum Culture - Final Escherichia Coli Complete 11/23/16 18:00 Urine Catheterized Urine Urine Culture - Final NO GROWTH IN 48 HOURS. Complete Vascular Central Line Catheter Date of Insertion: Nov 13, 2016 Line: Central Venous Catheter Side: Right Location: Internal Assessment and Plan Assessment: (1) Skull fractures ICD Code: S02.91XA - Unspecified fracture of skull, initial encounter for closed fracture Status: Acute (2) Intracranial hemorrhage ICD Code: I62.9 - Nontraumatic intracranial hemorrhage, unspecified Status: Acute (3) Major neurocognitive disorder as late effect of traumatic brain injury without behavioral disturbance ICD Code: S06.9X9S - Unspecified intracranial injury with loss of consciousness of unspecified duration, sequela; F02.80 - Dementia in other diseases classified elsewhere without behavioral disturbance Status: Acute (4) Traumatic brain injury ICD Code: S06.9X9A - Unspecified intracranial injury with loss of consciousness of unspecified duration, initial encounter Status: Acute Plan TOHONO O'ODHAM: This is a 61-year-old male who was found down at home with obvious scalp laceration and raccoon eyes. GCS 5-6. Obtunded. Intubated in the ED. + Cannabis. INJURIES: Skull fx SDH (temporal and parietal) LEFT cerebral contusions (w/compression of 4th ventricle) RIGHT temporal contusion LEFT parietal lobe contusion Procedures: 11/13: Intubated in the ED 11/13: Suboccipital craniectomy Consults: CCM. Neurosurgery. Rehabilitation medicine. Neuropsych. Case management. Assessment and plan by system: NEUROLOGICAL: 11/13: Suboccipital craniectomy Sedated with propofol gtt. Opens eyes Moves all extremities well, but not yet to command. Sedation vacations daily to assess weaning capability. Pt is sedated with a RASS score of -2 Provide analgesia for comfort and pain. Fentanyl 50 mg patch. Percocet 5 mg every 6 hours PRN Serial neuro checks. 11/16: CT brain: Stable post OR - Interval left occipital craniectomy with pneumocephalus, intraparenchymal hemorrhage, subdural hemorrhage and subarachnoid hemorrhage 11/23: Ct brain - stable EVD - Ventriculoscopy ICP = 5-7. Seizure precautions. Seizure prophylaxis - IV Keppra 3% saline - discontinued. NA = 144 HOB elevated 30 degrees - + peripheral pulses x 4 extremities. CARDIOVASCULAR: HR - 60-66 sinus bradycardia BP - 152/81 Continually monitor for hemodynamic instability (shock and hypotension). BP meds - Lopressor q 6h. Hydralazine 10 mg q 6h. Volume status - +883. Follow CMP - Electrolyte status - Electrolyte protocol - in place RESPIRATORY: 11/13: Intubated in the ED Vent settings- 500 / 14 / 30% / 1.0 / +5 Sats = 97% Increase PEEP carefully (to assist in oxygenation by recruiting alveoli.) Weaning - will attempt CPAP trials once ICPs are better controlled and patient is more awake and following commands Consider tracheostomy if patient unable to wean from the ventilator. O2 Sats - Monitor for hypoxemia Goal of end tital CO2 = 35-40 Follow ABGs - Lung sounds - CTA Pulmonary toilet - L&S. Bronchodilators - Breathing treatments - duonebs. Chest X-Ray results - minimal bibasilar dependent airspace disease. Stable. Sputum culture - echoli Antibiotics - Rocephin IV VAP protocol in place - Labs tomorrow Chest X-Ray tomorrow GASTROINTESTINAL: Diet - Jevity at 60 ml/hr. TF - minimal residuals Bowel sounds - + x 4 quads Bowel regimen - Colace. MOM. Lactulose. Bisacodyl MA LBM - 11/23 GI consult for PEG placement RENAL / URINARY: Strict I&O - +883 BUN / creat 19 / 0.45 Maintain charles for strict diagnosis - Charles in place to bedside drainage bag Urine culture - neg ENDOCRINE: BGM - 122 via am labs SSI HEMATOLOGY: H&H 8.5 / 25.7 Continue to monitor for signs and symptoms of bleeding. Evaluate need for IVC filter. Transfuse for < 7.0 Monitor patient for any bleeding complications. Started Lovenox for DVT prophylaxis - okay with neurosurgery INFECTIOUS DISEASE: Follow CBC Monitor for signs and symptoms of infection: WBC - 18.8 Puckett culture today. Provide pt with a line holiday. Remove Central line and A line Low grade fevers Administer antipyretics for temp as needed. IV abx: Rocephin 11/23: Sputum 11/23: Blood - 11/23: Urine: 11/19: Urine - neg 11/15: Sputum - Ecoli 11/15: Blood - NEG 11/13: CSF - NEG Monitor for pneumonia evolution with repeat chest X-Rays as needed. Maintain vigorous aseptic care of central line to avoid blood stream infections. Consider a consult to ID for further management IV LINES: 11/13: Ventric 11/13: ETT 11/13: OGT 11/13: R IJ TLC (DC) 11/13: L Rad Nelia (DC) 11/19: Charles PROPHYLAXIS: VAP - chlorhexidine mouth care in place GI - Pepcid BID po DVT - Mechanical VTE with SCDs. Chemical management with Lovenox 30 BID SQ - cleared and okay with neurosurgery SKIN: Warm and dry Bilateral orbital ecchymosis and edema. ACTIVITY: Status - BR PT and OT ordered. CASE MANAGEMENT: Consulted for assist with DC planning. Placement - disposition - TBD. EMOTIONAL SUPPORT: Provided to patient and family. Plan of care discussed. Questions answered to the best of my knowledge. This patient is currently critically ill and injured and being managed in the ICU. The trauma team will round each day, and evaluate plan of care on a daily basis. Attestation Critical care time 35 minutes Problem Qualifiers (1) Skull fractures: Qualified Codes: S02.91XA - Unspecified fracture of skull, initial encounter for closed fracture (2) Traumatic brain injury: Qualified Codes: S06.9X9D - Unspecified intracranial injury with loss of consciousness of unspecified duration, subsequent encounter Tayler Hitchcock MD Nov 25, 2016 17:10
[2016-11-25] MEDS: LEVOFLOXACIN 500 MG PREMIX INJ 100 ML IV SCH (20:32)
[2016-11-25] MEDS: MAGNESIUM HYDROXIDE SUSP 30 ML CUP PO SCH (20:32)
--- NOTE | 2016-11-25 22:48 | MP ---
cc: MD ALYCIA,[facility] DATE OF SURGERY 11/25/2016 PREOPERATIVE DIAGNOSIS Status post traumatic brain injury, need for feeding access. POSTOPERATIVE DIAGNOSIS Status post traumatic brain injury, need for feeding access. PROCEDURE Open feeding jejunostomy. SURGEON MD Alycia ANESTHESIA General. ESTIMATED BLOOD LOSS 20 cc. PROCEDURE IN DETAIL The patient prepped and draped usual fashion. Small midabdominal incision made in the site of the previous supraumbilical scar, deepened down to the level of fascia which is then opened and abdomen entered. There is some adhesions between the anterior abdominal wall and small intestine. These are very gradually taken down with the Metzenbaum scissors. In the lower part of the incision omentum is caked to the anterior abdominal wall and this is very gradually taken down ending up with proximal normal omentum and distally a large clump of omentum that is reaching down the pelvis. This is followed and omentum is now freed up. This allows easy access to the abdomen. Stomach in deep is retracted. The patient had a previous gastrectomy. The small bowel is now followed up and toward ligament of Treitz and then the proximal jejunum about 20 cm from the ligament of Treitz was chosen for the site of placement of the tube. A 3-0 silk pursestring is placed. The 18[place] jejunostomy tube is now inserted through separate stab wound in the left lateral abdominal wall and advanced. The incision was made with a cautery in the intestine and then through this that the feeding jejunostomy inserted and then the pursestring was tied down. Now Witzel jejunostomy is created by placing 3-0 silk pop-off Lembert sutures spaced out, about five of them covering this site and creating a small subcutaneous tunnel. The 2-0 Vicryl is now used to place horizontal mattress stitches between anterior abdominal wall under side and the jejunum and jejunum is tacked down to anterior abdominal wall, several stitches of 3-0 silk additionally placed to prevent kinking of the small bowel. Tube is now flushed with water and it flushes easily and the tube donut is attached with 2-0 Prolene to the skin. Area irrigated with copious amounts of saline. Incision closed with #1 PDS loops and ___ on the subcuticular Monocryl. Benzoin, Steri-Strips applied. The patient tolerated the procedure well. Tayler EDMONDS /5:12 PM /10:29 PM
[2016-11-26] VITALS (17 sets, daily range): BP systolic 123–149; BP diastolic 79–90; PULSE 76–98; RESP 18–19; TEMP 98.3–100.6; O2SAT 99–100
[2016-11-26] MEDS: hydrALAZINE HCL 20 MG/ML VIAL IV PUSH SCH ×5 (00:41→23:52)
[2016-11-26] MEDS: PROPOFOL 1000 MG/100 ML IV PRN ×2 (00:41→13:13)
[2016-11-26] MEDS: SODIUM CHLORIDE 1 GRAM TAB PO SCH ×4 (02:08→19:50)
[2016-11-26] MEDS: METOPROLOL TARTRATE 5 MG/5 ML VIAL IV PUSH SCH ×4 (02:08→19:50)
[2016-11-26] MEDS: PIPERACIL-TAZO 3.375 GM PREMIX 50 ML IV SCH ×2 (03:35→09:29)
[2016-11-26] MEDS: INSULIN NovoLIN REGULAR SUPPLEMENTAL SCALE SQ SCH ×2 (06:00)
[2016-11-26 06:42] LABS: AUTOMATED NEUTROPHIL # 12.6 TH/MM3 (1.8-7.7); BASOPHIL # 0.1 TH/MM3 (0-0.2); BASOPHIL % 0.6 % (0.0-2.0); EOSINOPHIL # 0.1 TH/MM3 (0-0.4); EOSINOPHIL % 0.3 % (0.0-4.0); HEMATOCRIT 29.3 % (39.0-51.0); LYMPH % 10.2 % (9.0-44.0); LYMPHOCYTE # 1.6 TH/MM3 (1.0-4.8); MEAN CELL VOLUME 98.8 FL (80.0-100.0); MEAN CORPUSCULAR HEMOGLOBIN 33.7 PG (27.0-34.0); MEAN CORPUSCULAR HGB CONC 34.1 % (32.0-36.0); MEAN PLATELET VOLUME 9.4 FL (7.0-11.0); MONO % 8.2 % (0.0-8.0); MONOCYTE # 1.3 TH/MM3 (0-0.9); NEUT % 80.7 % (16.0-70.0); PLATELET COUNT 267 TH/MM3 (150-450); RED BLOOD COUNT 2.97 MIL/MM3 (4.50-5.90); RED CELL DISTRIBUTION WIDTH 18.5 % (11.6-17.2); WHITE BLOOD COUNT 15.7 TH/MM3 (4.0-11.0)
[2016-11-26 06:44] LABS: AST (GOT) 55 U/L (15-37); BICARBONATE 22.6 MEQ/L (21.0-32.0); BLOOD UREA NITROGEN 22 MG/DL (7-18); CALCIUM 8.2 MG/DL (8.5-10.1); CHLORIDE 111 MEQ/L (98-107); CREATININE 0.59 MG/DL (0.60-1.30); GLOMERULAR FILTRATION RATE 140 ML/MIN (>89); GLUCOSE,RANDOM 101 MG/DL (74-106); SODIUM (NA) 143 MEQ/L (136-145)
[2016-11-26 06:48] LABS: ALKALINE PHOSPHATASE 81 U/L (45-117); ALT (GPT) 45 U/L (12-78); TOTAL PROTEIN 5.8 GM/DL (6.4-8.2)
[2016-11-26] MEDS ORDERED: ACETAMINOPHEN 650 MG/20.3 ML UDC PO PRN (07:45)
[2016-11-26] MEDS: CHLORHEXIDINE 0.12% (ORAL KIT) 15 ML CUP MT SCH ×2 (08:00→19:51)
[2016-11-26] MEDS: LACTULOSE SYRUP 20 GM/30 ML CUP PO SCH (08:06)
[2016-11-26] MEDS: FAMOTIDINE 20 MG TAB NG SCH ×2 (08:30→19:50)
[2016-11-26] MEDS: SODIUM CHLORIDE 0.9% FLUSH 10 ML FLUSH IV FLUSH SCH ×2 (08:30→19:51)
[2016-11-26] MEDS: SENNOSIDES SYRUP 8.8 MG/5 ML CUP PO SCH (08:30)
[2016-11-26] MEDS: ENOXAPARIN SODIUM 30 MG/0.3 ML SYRINGE SQ SCH ×2 (08:30→19:50)
--- NOTE | 2016-11-26 08:46 | HHI.PR ---
Neuropsych Emotional Emotional: UnabletoAssess: Emotional, Anxious/Fearful, Depressed/Sad, Hostile/ Resentful, Irritable/Angry/Frustrate, Labile, Constricted/Blunted Behavior Behavior: Intact: Impulsive/Agitated, Unable to Asses: Behavior, Coping/ Acceptance, Cooperative w/ Treatment, Motivation, Frustration Tolerance/[place], Suicidal/Homicidal Risk Cognitive Cognitive: Unable to Asses: Cognitive, Attention/Concentration, Confused/ Orientation, Insight/Awareness, Judgement/Problem-Solving, Memory Psychosocial Psychosocial: Intact: Psychosocial, Family/Other Adjustment, Realistic Expectation, Unable to Asses: Self-Esteem/Confidence Progress Notes/Response to Tx Contents of Sessions: Adjustment, Level of Consciousness Time with Patient: 15 minutes Premorbid psychological status Premorbid Cognitive, Emotional and Behavioral Status: Stable. The patient is originally from [facility] and has a solid work history prior to this injury. The patient has no psychiatric difficulties, as described above. Substance abuse history is unremarkable. Behavioral Reactions of Patient and Family/Support System: Stable. The patient s family is experiencing ongoing issues of adjustment given the nature of the injury, and this aspect of recovery will require ongoing monitoring. Emotional/Behavioral Status of Patient and Family/Support System: Stable. Pertinent issues, if appropriate to this patients clinical care, are described in detail above. Maximizing acute care outcome It is recommended that the patient be monitored for emergent behavioral impulsivity as the medical condition evolves. This patients neuropathological challenges may limit their rehabilitation potential going forward, and these challenges will require specialized therapeutic skills to maximize outcome. Additionally, the patients family is experiencing ongoing issues of adjustment given the traumatic nature of the injury, and they will need ongoing psychological assistance. Anticipated Problems Ongoing areas of concern will include behavioral impulsivity, lack of insight and judgment, which is expected to improve with time and treatment. Presently , the patient remains intubated and sedated. Treatment Plan This clinician will continue to follow with you throughout the course of this patients acute care treatment, and I will be available to meet with the patient s family/support system to facilitate their understanding and the ongoing care of their family member. The goals of neuropsychological intervention shall be both educational and supportive to the family/support system as is deemed clinically appropriate. [facility] Level: III:Localized response-total assist Impression This is a 61 year old man s/p TBI 2T probable fall. Diagnosis: (1) Major neurocognitive disorder as late effect of traumatic brain injury without behavioral disturbance Status: Acute Progress Note Narrative Ongoing follow-up of patient seen during daily trauma rounds. This is day 13 post injury. The patient is to undergo J-tube today; underwent trach yesterday. His eyes are open, but he inconsistently tracks and does not follow. White count is still elevated, and he remains on sedation, and thus this still is not a good time to institute neurostimulant measures, per trauma team consensus. He is Rancho III. I will continue to follow. Johan Pierson PhD Nov 26, 2016 8:46 am
--- NOTE | 2016-11-26 09:05 | HHI.NSPN ---
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 A 1.7 cm right temporal parietal subdural hematoma. Contusions are noted in the left cerebellar hemisphere up to 5 cm in size with compression of the fourth ventricle and a contusion is noted in the right temporal lobe. Small contusion cortically in the lower left parietal lobe. He underwent emergent suboccipital decompressive craniectomy, C1 laminectomy for evacuation of cerebellar hematoma, with placement of ventriculostomy drain on 11/13/1611/14: intubated, and very well sedated. sedation lowered pt restless. EVD draining well. ICPs wnl overnight. 11/15: off propofol, remains on fentanyl drip. Moving spontaneously. ICPs stable overnight, EVD draining well. 11/16: off sedation opens eyes, moving all four extremities but not following commands. EVD draining well, ICPs remains wnl. 11/17: remains intubated and sedated. ICPs stable, EVD draining well. f/u CT Brain yesterday completed and reviewed by Dr. Grimm. 11/18: sedated on diprivan, slightly opens eyes to voice. withdraws x 4 extremities but does not follow commands. 11/19: when sedation lowered, opens eyes and withdraws x 4, placed back on sedation for blood pressure control. 11/20: intubated, sedated. EVD draning well, ICPs as high as 10 overnight. nursing reports ?weaker left side today. 11/23: 3% NS restarted wednesday afternoon with improved ICPs. stable over the weekend. repeat CT Head over the weekend completed. 11/24: nursing reports appears to track to voice, moving all four extremities ? weaker on the left, ICPs stable overnight, central line discontinued. 11/25: no acute events overnight, ICPs stable 11/26: ICPs remains stable following raising of ventriculostomy drain, appearing more alert today, tracking (Kathy Moctezuma) Labs, Micro, & Vital Signs Results Date Time Temp Pulse Resp B/P (MAP) Pulse Ox O2 Delivery O2 Flow Rate FiO2 11/26/16 08:00 98.3 86 18 149/90 (109) 99 11/26/16 08:00 89 11/26/16 08:00 30 11/26/16 07:59 100 30 11/26/16 06:00 92 11/26/16 04:15 99 30 11/26/16 04:00 82 11/26/16 04:00 99.3 82 19 139/83 (101) 100 11/26/16 04:00 30 11/26/16 02:00 98 11/26/16 00:00 82 11/26/16 00:00 100.6 82 19 143/79 (100) 100 11/26/16 00:00 30 11/25/16 22:00 92 11/25/16 20:00 104 11/25/16 20:00 40 11/25/16 20:00 99.9 104 18 119/76 (90) 100 11/25/16 19:49 99 30 11/25/16 18:00 94 11/25/16 16:41 100 40 11/25/16 16:00 40 11/25/16 16:00 97.7 107 25 132/82 (99) 100 11/25/16 16:00 107 11/25/16 14:00 94 11/25/16 12:40 100 30 11/25/16 12:00 75 11/25/16 12:00 97.0 75 19 153/97 (115) 100 11/25/16 12:00 40 11/25/16 11:09 100 100 11/25/16 10:00 76 11/25/16 09:14 100 40 Constitutional Vital Signs Date Time Temp Pulse Resp B/P (MAP) Pulse Ox O2 Delivery O2 Flow Rate FiO2 11/26/16 08:00 98.3 86 18 149/90 (109) 99 11/26/16 08:00 89 11/26/16 08:00 30 11/26/16 07:59 100 30 11/26/16 06:00 92 11/26/16 04:15 99 30 11/26/16 04:00 82 11/26/16 04:00 99.3 82 19 139/83 (101) 100 11/26/16 04:00 30 11/26/16 02:00 98 11/26/16 00:00 82 11/26/16 00:00 100.6 82 19 143/79 (100) 100 11/26/16 00:00 30 11/25/16 22:00 92 11/25/16 20:00 104 11/25/16 20:00 40 11/25/16 20:00 99.9 104 18 119/76 (90) 100 11/25/16 19:49 99 30 11/25/16 18:00 94 11/25/16 16:41 100 40 11/25/16 16:00 40 11/25/16 16:00 97.7 107 25 132/82 (99) 100 11/25/16 16:00 107 11/25/16 14:00 94 11/25/16 12:40 100 30 11/25/16 12:00 75 11/25/16 12:00 97.0 75 19 153/97 (115) 100 11/25/16 12:00 40 11/25/16 11:09 100 100 11/25/16 10:00 76 11/25/16 09:14 100 40 (Kathy Moctezuma) Review of Systems ROS Limitations: Clinical Condition, Altered Mental Status (Kathy Moctezuma) Physical Exam Mr. Villalta appears more awake, alert, tracking with eyes. ?not consistently following commands Surgical incision healing well, no redness, drainage, swelling or other signs of infection, dressing dry Right ventriculostomy at 20 cm H20, draining well - CSF dark red. ICPs = 5 Cranial Nerves: Pupils 3-4 mm b/l. Tracking, gross EOMs appear intact. Bilateral periorbital ecchymoses, conjunctival hemorrhages improving. Motor: withdraws lower extremities to pain, ?wiggled toes to command, no movement in the upper extremities. Reflexes: Trace throughout. Positive b/l Babinski. No ankle clonus. Cerebellar: cannot assess due to current clinical condition (Kathy Moctezuma) Medications Current Medications Current Medications Medications (Trade) Dose Ordered Sig/Femi Route PRN Reason Start Time Stop Time Status Last Admin Dose Admin Sodium Chloride (NS Flush) 2 ml UNSCH PRN IV FLUSH FLUSH AFTER USING IV ACCESS 11/13/16 15:00 Sodium Chloride (NS Flush) 2 ml BID IV FLUSH 11/13/16 21:00 11/26/16 08:30 Ondansetron HCl (Zofran Inj) 4 mg Q6H PRN IV NAUSEA OR VOMITING 11/13/16 15:00 Naloxone HCl (Narcan Inj) 0.4 mg UNSCH PRN IV PUSH SEE LABEL COMMENTS 11/13/16 15:00 Bisacodyl (Dulcolax Supp) 10 mg DAILY PRN RECTAL CONSTIPATION 11/13/16 15:00 Calcium Gluconate (Calcium Gluconate Inj) 1 gm UNSCH PRN IV SEE LABEL COMMENTS 11/13/16 15:00 Potassium Chloride 100 ml @ 50 mls/hr UNSCH PRN IV POTASSIUM LESS THAN 4 11/13/16 15:00 Magnesium Sulfate 4 gm/Sodium Chloride 108 ml @ 108 mls/hr UNSCH PRN IV MAGNESIUM LESS THAN 2 11/13/16 15:00 Propofol 100 ml @ 1.65 mls/hr TITRATE PRN IV SEDATION 11/13/16 20:15 11/26/16 00:41 Dextrose (D50w (Vial) Inj) 25 ml UNSCH PRN IV PUSH HYPOGLYCEMIA-SEE COMMENTS 11/14/16 02:30 Insulin Human Regular (NovoLIN R SUPPLEMENTAL SCALE) 1 Q6HR SQ 11/14/16 06:00 11/23/16 00:13 Chlorhexidine Gluconate (Peridex 0.12% Liq) 15 ml BID@08,20 MT 11/14/16 08:00 11/26/16 08:00 Magnesium Oxide (Mag-Ox) 800 mg UNSCH PRN PO For Magnesium 1.2 - 1.6 mg/dL 11/14/16 02:30 Magnesium Sulfate 4 gm/Sodium Chloride 100 ml @ 50 mls/hr UNSCH PRN IV For Magnesium 0.9 - 1.1 mg/dL 11/14/16 02:30 Magnesium Sulfate 2 gm/Sodium Chloride 100 ml @ 50 mls/hr UNSCH PRN IV For Magnesium 1.2 - 1.6 mg/dL 11/14/16 02:30 Potassium Chloride 100 ml @ 50 mls/hr Q2H PRN IV For Potassium 2.8 - 3.2 mEq/L 11/14/16 02:30 11/17/16 10:35 Potassium Chloride 100 ml @ 50 mls/hr Q2H PRN IV For Potassium 3.3 - 3.5 mEq/L 11/14/16 02:30 Potassium Chloride 100 ml @ 50 mls/hr Q2H PRN IV For Potassium 2.8 - 3.2 mEq/L 11/14/16 02:30 Potassium Chloride 100 ml @ 25 mls/hr UNSCH PRN IV For Potassium 3.3 - 3.5 mEq/L 11/14/16 02:30 11/18/16 04:50 Potassium Phosphate (K-Phos) 2,000 mg Q4H PRN PO For Phosphorus < 2.5 mg/dL 11/14/16 02:30 Potassium Phosphate (K-Phos) 2,000 mg UNSCH PRN PO/TUBE SEE LABEL COMMENTS 11/14/16 02:30 Potassium Phosphate 30 mmol/ Sodium Chloride 260 ml @ 42 mls/hr UNSCH PRN IV SEE LABEL COMMENTS 11/14/16 02:30 Sodium Phosphate 30 mmol/Sodium Chloride 250 ml @ 42 mls/hr UNSCH PRN IV For Phosphorus < 2.5 mg/dL 11/14/16 02:30 Albuterol/ Ipratropium (Duoneb Neb) 1 ampule Q2HR NEB PRN INH WHEEZING 11/14/16 02:30 Magnesium Hydroxide (Milk Of Magnesia Liq) 30 ml HS PO 11/15/16 21:00 11/20/16 20:25 Lactulose (Lactulose Liq) 30 ml DAILY PO 11/15/16 09:00 11/22/16 08:23 Ceftriaxone Sodium 2000 mg/ Sodium Chloride 100 ml @ 200 mls/hr Q24H IV 11/17/16 13:00 11/25/16 13:16 Enoxaparin Sodium (Lovenox Inj) 30 mg Q12H SQ 11/20/16 21:00 Future hold 11/26/16 08:30 Hydralazine HCl (Apresoline Inj) 10 mg Q6HR IV PUSH 11/22/16 11:00 11/26/16 05:22 Metoprolol Tartrate (Lopressor Inj) 5 mg Q6H IV PUSH 11/22/16 14:00 11/26/16 08:30 Fentanyl (Duragesic 50 Mcg Patch.72 Hr) 1 patch Q3D T-DERMAL 11/22/16 11:00 11/25/16 10:24 Miscellaneous Information 1 Q3D T-DERMAL 11/25/16 11:00 11/25/16 10:23 Labetalol HCl (Trandate Inj) 10 mg Q4H PRN IV PUSH SBP>160, DBP>90 11/22/16 23:45 11/23/16 15:56 Levofloxacin/ Dextrose 100 ml @ 100 mls/hr Q24H IV 11/23/16 21:00 11/25/16 20:32 Piperacillin Sod/ Tazobactam Sod 50 ml @ 100 mls/hr Q6H IV 11/23/16 22:00 11/26/16 03:35 Sodium Chloride (Sodium Chloride) 2 gm Q6H PO 11/23/16 20:00 11/26/16 08:30 Acetaminophen (Tylenol 650 Mg/ 20 ml Liq) 650 mg Q4H PRN PO Temp > 101 11/26/16 07:45 Sennosides (Senna Liq) 8.8 mg DAILY PO 11/26/16 09:00 11/26/16 08:30 Oxycodone HCl (Roxicodone Intensol Liq) 5 mg Q6H PRN PO pain >3 11/26/16 09:00 Famotidine (Pepcid) 20 mg BID NG 11/26/16 09:00 11/26/16 08:30 (Kathy Moctezuma) Medical Decision Making MDM Remarks Middle age 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 A 1.7 cm right temporal parietal subdural hematoma and contusions. Left cerebellar contusions with compression of the fourth ventricle he underwent emergent suboccipital decompressive craniectomy, C1 laminectomy for evacuation of cerebellar hematoma, with placement of ventriculostomy drain on 11/13/16 f/u CT Brain 11/23: decreasing in size of right SDH, improving cerebellar hematoma, otherwise stable compared to CT Head 11/16 (Kathy Moctezuma) Plan Plan Remarks clamp ventriculostomy drain today, cont monitoring ICPs, f/u CT Brain tomorrow to assess for hydrocephalus, if stable will dc EVD cont critical care mgt cont daily dressing changes, monitor wound, sutures dc tomorrow Protonix for stress ulcer proph, cont sz prophylaxis (Kathy Moctezuma) Attending Statement The exam, history, and the medical decision-making described in the above note were completed with the assistance of the mid-level provider. I reviewed and agree with the findings presented. I attest that I had a [id number] encounter with the patient on the same day, and personally performed and documented my assessment and findings in the medical record. (Stu Grimm MD) Kathy Moctezuma Nov 26, 2016 09:05 Stu Grimm MD Nov 29, 2016 17:51
--- NOTE | 2016-11-26 09:09 | HHI.NSPN ---
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 A 1.7 cm right temporal parietal subdural hematoma. Contusions are noted in the left cerebellar hemisphere up to 5 cm in size with compression of the fourth ventricle and a contusion is noted in the right temporal lobe. Small contusion cortically in the lower left parietal lobe. He underwent emergent suboccipital decompressive craniectomy, C1 laminectomy for evacuation of cerebellar hematoma, with placement of ventriculostomy drain on 11/13/1611/14: intubated, and very well sedated. sedation lowered pt restless. EVD draining well. ICPs wnl overnight. 11/15: off propofol, remains on fentanyl drip. Moving spontaneously. ICPs stable overnight, EVD draining well. 11/16: off sedation opens eyes, moving all four extremities but not following commands. EVD draining well, ICPs remains wnl. 11/17: remains intubated and sedated. ICPs stable, EVD draining well. f/u CT Brain yesterday completed and reviewed by Dr. Grimm. 11/18: sedated on diprivan, slightly opens eyes to voice. withdraws x 4 extremities but does not follow commands. 11/19: when sedation lowered, opens eyes and withdraws x 4, placed back on sedation for blood pressure control. 11/20: intubated, sedated. EVD draning well, ICPs as high as 10 overnight. nursing reports ?weaker left side today. 11/23: 3% NS restarted wednesday afternoon with improved ICPs. stable over the weekend. repeat CT Head over the weekend completed. 11/24: nursing reports appears to track to voice, moving all four extremities ? weaker on the left, ICPs stable overnight, central line discontinued. 11/25: no acute events overnight, ICPs stable (Kathy Moctezuma) Labs, Micro, & Vital Signs Results Date Time Temp Pulse Resp B/P (MAP) Pulse Ox O2 Delivery O2 Flow Rate FiO2 11/26/16 08:00 98.3 86 18 149/90 (109) 99 11/26/16 08:00 89 11/26/16 08:00 30 11/26/16 07:59 100 30 11/26/16 06:00 92 11/26/16 04:15 99 30 11/26/16 04:00 82 11/26/16 04:00 99.3 82 19 139/83 (101) 100 11/26/16 04:00 30 11/26/16 02:00 98 11/26/16 00:00 82 11/26/16 00:00 100.6 82 19 143/79 (100) 100 11/26/16 00:00 30 11/25/16 22:00 92 11/25/16 20:00 104 11/25/16 20:00 40 11/25/16 20:00 99.9 104 18 119/76 (90) 100 11/25/16 19:49 99 30 11/25/16 18:00 94 11/25/16 16:41 100 40 11/25/16 16:00 40 11/25/16 16:00 97.7 107 25 132/82 (99) 100 11/25/16 16:00 107 11/25/16 14:00 94 11/25/16 12:40 100 30 11/25/16 12:00 75 11/25/16 12:00 97.0 75 19 153/97 (115) 100 11/25/16 12:00 40 11/25/16 11:09 100 100 11/25/16 10:00 76 11/25/16 09:14 100 40 Constitutional Vital Signs Date Time Temp Pulse Resp B/P (MAP) Pulse Ox O2 Delivery O2 Flow Rate FiO2 11/26/16 08:00 98.3 86 18 149/90 (109) 99 11/26/16 08:00 89 11/26/16 08:00 30 11/26/16 07:59 100 30 11/26/16 06:00 92 11/26/16 04:15 99 30 11/26/16 04:00 82 11/26/16 04:00 99.3 82 19 139/83 (101) 100 11/26/16 04:00 30 11/26/16 02:00 98 11/26/16 00:00 82 11/26/16 00:00 100.6 82 19 143/79 (100) 100 11/26/16 00:00 30 11/25/16 22:00 92 11/25/16 20:00 104 11/25/16 20:00 40 11/25/16 20:00 99.9 104 18 119/76 (90) 100 11/25/16 19:49 99 30 11/25/16 18:00 94 11/25/16 16:41 100 40 11/25/16 16:00 40 11/25/16 16:00 97.7 107 25 132/82 (99) 100 11/25/16 16:00 107 11/25/16 14:00 94 11/25/16 12:40 100 30 11/25/16 12:00 75 11/25/16 12:00 97.0 75 19 153/97 (115) 100 11/25/16 12:00 40 11/25/16 11:09 100 100 11/25/16 10:00 76 11/25/16 09:14 100 40 (Kathy Moctezuma) Physical Exam THIS NOTE IS FOR 11/25/16 WHEN PATIENT WAS SEEN AND EXAMINED DURING MORNING ROUNDS, NOTE SAVED IMPROPERLY Mr. Villalta with eyes open but not following commands Surgical incision healing well, no redness, drainage, swelling or other signs of infection, dressing dry Right ventriculostomy at 15 cm H20, draining well - CSF dark red. ICPs = 5 Cranial Nerves: Pupils 3-4 mm b/l. Tracking, gross EOMs appear intact. Bilateral periorbital ecchymoses, conjunctival hemorrhages improving. Motor: withdraws lower extremities to pain, but not following for testing Reflexes: Trace throughout. Positive b/l Babinski. No ankle clonus. 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 A 1.7 cm right temporal parietal subdural hematoma and contusions. Left cerebellar contusions with compression of the fourth ventricle he underwent emergent suboccipital decompressive craniectomy, C1 laminectomy for evacuation of cerebellar hematoma, with placement of ventriculostomy drain on 11/13/16 f/u CT Brain 11/23: decreasing in size of right SDH, improving cerebellar hematoma, otherwise stable compared to CT Head 11/16 (Kathy Moctezuma) Plan Plan Remarks THIS NOTE IS FOR 11/25/16 WHEN PATIENT WAS SEEN AND EXAMINED DURING MORNING ROUNDS, NOTE SAVED IMPROPERLY raise ventriculostomy drain to 20 cm H20, cont ICP monitoring cont critical care mgt cont daily dressing changes, monitor wound, sutures dc tomorrow Protonix for stress ulcer proph, cont sz prophylaxis (Kathy Moctezuma) Attending Statement The exam, history, and the medical decision-making described in the above note were completed with the assistance of the mid-level provider. I reviewed and agree with the findings presented. I attest that I had a [id number] encounter with the patient on the same day, and personally performed and documented my assessment and findings in the medical record. (Stu Grimm MD) Kathy Moctezuma Nov 26, 2016 09:09 Stu Grimm MD Nov 29, 2016 17:51
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
[2016-11-26] MEDS: SODIUM CHLOR 0.9% 1000 ML INJ 1,000 ML IV SCH (11:00)
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
[2016-11-26] MEDS: cefTRIAXone INJ 2,000 MG in SODIUM CHLORIDE 0.9% INJ 100 ML IV SCH (13:09)
--- NOTE | 2016-11-26 13:31 | HHI.HCPN ---
Reason for visit a. To assist with evaluation and management of symptoms including: Pain, dyspnea b. To assist medical decision maker(s) with: better understanding of current medical conditions; weighing benefits/burdens of medical treatment options; making medical treatment decisions. (Norma Goodrich) Subjective/Interval History This is a 61 year old male brought to [place] as a trauma alert under Jongverito Fabien Carlisle 11/13/16, after being found down at home by family with an obvious scalp hematoma to the posterior part of his head, unconscious. Per my discussion with his daughter, Sloan Briseno, her grandmother had contacted her that she was unable to help her father get up. The daughter came immediately to the home to find her father lying upstairs in the hallway in a pool of blood. Blood was found on his bed, down stairs near the entry way and several other places in the home. She describes her father as unconscious at that time. Emergency services were summoned, to include the [employer] who is still investigating. He was emergently intubated in the ED and underwent left suboccipital craniectomy with evacuation of cerebellar hemorrhage and placement of a ventriculostomy catheter via a right frontal manas hole. He is seen in the intensive care unit status post tracheostomy. Interim history 11/24 Dr. Wade attempted placement of an endoscopic PEG tube unsuccessfully. 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 He underwent bronchoscopy by Dr. Kelly and placement of tracheostomy by Dr. Hitchcock. 11/25 he underwent successful open placement of jejunostomy tube by Dr. Hitchcock. At this evaluation his eyes are open but do not focus or engage. Sometimes he appears to blink to direction and sometimes spontaneously. He is unable to move fingers or toes at this evaluation. 11/26 seen at bedside with daughters, Susanna. Moving feet bilaterally to command, somewhat limited tracking noted as daughters move around the bed. Not moving left hand yet. . Family/friend interactions Spoke with daughters at bedside regarding brain edema from traumatic injury, slow rate of neurological recovery and updated on current clinical status. All questions were answered. They continue to want aggressive care in light of patient's previous totally independent status with no medical comorbidities. . (Norma Goodrich) Advance Directives Living Will: Never completed Health Care Surrogate: Never completed Durable Power of Machinist Supervisor Outside: Never completed (Norma Goodrich) Objective Vital Signs Date Time Temp Pulse Resp B/P (MAP) Pulse Ox O2 Delivery O2 Flow Rate FiO2 11/26/16 12:00 30 11/26/16 12:00 90 11/26/16 10:00 84 11/26/16 08:00 98.3 86 18 149/90 (109) 99 11/26/16 08:00 89 11/26/16 08:00 30 11/26/16 07:59 100 30 11/26/16 06:00 92 11/26/16 04:15 99 30 11/26/16 04:00 82 11/26/16 04:00 99.3 82 19 139/83 (101) 100 11/26/16 04:00 30 11/26/16 02:00 98 11/26/16 00:00 82 11/26/16 00:00 100.6 82 19 143/79 (100) 100 11/26/16 00:00 30 11/25/16 22:00 92 11/25/16 20:00 104 11/25/16 20:00 40 11/25/16 20:00 99.9 104 18 119/76 (90) 100 11/25/16 19:49 99 30 11/25/16 18:00 94 11/25/16 16:41 100 40 11/25/16 16:00 40 11/25/16 16:00 97.7 107 25 132/82 (99) 100 11/25/16 16:00 107 11/25/16 14:00 94 Intake & Output 11/26/16 11/26/16 07:00 19:00 Intake Total 240 ml 45 ml Output Total 504 ml Balance -264 ml 45 ml Intake IV Total 40 ml 45 ml Tube Feeding 0 ml Other 200 ml Output Urine Total 500 ml Stool Total 0 ml Drainage Total 4 ml Bladder Scan Volume Amount 371 ml . Physical Exam CONSTITUTIONAL/GENERAL: This is a thin middle-aged male, lying in bed, ventilated via tracheostomy, eyes open to stimulation, intermittently focusing and tracking. TUBES/LINES/DRAINS: Left radial art line, right upper arm PIV, right antecubital PIV, triple-lumen right IJ, J tube SKIN: No jaundice, rashes, or lesions. Skin temperature appropriate. Not diaphoretic. HEAD: Right cranial incision healing well, right ventriculostomy. EYES: Pupils 3 mm, equal and round and reactive. NECK: Trachea midline. Midline tracheostomy. CARDIOVASCULAR: Regular rate and rhythm without murmurs, gallops, or rubs. Peripheral pulses symmetric. RESPIRATORY/CHEST: Symmetric, unlabored respirations. Clear to auscultation. Breath sounds equal bilaterally. No wheezes, rales, or rhonchi. GASTROINTESTINAL: Abdomen soft, nondistended. No hepato-splenomegaly, or palpable masses. Palpable aortic pulse. Bowel sounds present. J-tube clamped. GENITOURINARY: Without palpable bladder distension. Clark catheter in place. MUSCULOSKELETAL: Extremities without clubbing, cyanosis, or edema. No mottling or clubbing. NEUROLOGICAL: eyes open, blinking, some tracking and focusing noted. PSYCHIATRIC: Calm, lightly sedated. . (Norma Goodrich) Diagnostic Tests Laboratory Laboratory Tests Test 11/23/16 16:00 11/23/16 23:00 11/24/16 05:00 11/24/16 07:00 Sodium Level 143 MEQ/L (136-145) 145 MEQ/L (136-145) 146 MEQ/L (136-145) Blood Urea Nitrogen 23 MG/DL (7-18) Creatinine 0.57 MG/DL (0.60-1.30) Random Glucose 110 MG/DL (74-106) Calcium Level 7.8 MG/DL (8.5-10.1) Potassium Level 4.1 MEQ/L (3.5-5.1) Chloride Level 112 MEQ/L (98-107) Carbon Dioxide Level 27.2 MEQ/L (21.0-32.0) Anion Gap 7 MEQ/L (5-15) Estimat Glomerular Filtration Rate 146 ML/MIN (>89) White Blood Count 14.8 TH/MM3 (4.0-11.0) Red Blood Count 2.69 MIL/MM3 (4.50-5.90) Hemoglobin 9.0 GM/DL (13.0-17.0) Hematocrit 26.7 % (39.0-51.0) Mean Corpuscular Volume 99.3 FL (80.0-100.0) Mean Corpuscular Hemoglobin 33.5 PG (27.0-34.0) Mean Corpuscular Hemoglobin Concent 33.7 % (32.0-36.0) Red Cell Distribution Width 18.1 % (11.6-17.2) Platelet Count 279 TH/MM3 (150-450) Mean Platelet Volume 9.1 FL (7.0-11.0) Test 11/25/16 03:56 11/26/16 05:44 White Blood Count 14.4 TH/MM3 (4.0-11.0) 15.7 TH/MM3 (4.0-11.0) Red Blood Count 2.86 MIL/MM3 (4.50-5.90) 2.97 MIL/MM3 (4.50-5.90) Hemoglobin 9.5 GM/DL (13.0-17.0) 10.0 GM/DL (13.0-17.0) Hematocrit 28.4 % (39.0-51.0) 29.3 % (39.0-51.0) Mean Corpuscular Volume 99.4 FL (80.0-100.0) 98.8 FL (80.0-100.0) Mean Corpuscular Hemoglobin 33.3 PG (27.0-34.0) 33.7 PG (27.0-34.0) Mean Corpuscular Hemoglobin Concent 33.5 % (32.0-36.0) 34.1 % (32.0-36.0) Red Cell Distribution Width 18.3 % (11.6-17.2) 18.5 % (11.6-17.2) Platelet Count 275 TH/MM3 (150-450) 267 TH/MM3 (150-450) Mean Platelet Volume 9.4 FL (7.0-11.0) 9.4 FL (7.0-11.0) Neutrophils (%) (Auto) 79.6 % (16.0-70.0) 80.7 % (16.0-70.0) Lymphocytes (%) (Auto) 9.9 % (9.0-44.0) 10.2 % (9.0-44.0) Monocytes (%) (Auto) 9.2 % (0.0-8.0) 8.2 % (0.0-8.0) Eosinophils (%) (Auto) 0.8 % (0.0-4.0) 0.3 % (0.0-4.0) Basophils (%) (Auto) 0.5 % (0.0-2.0) 0.6 % (0.0-2.0) Neutrophils # (Auto) 11.4 TH/MM3 (1.8-7.7) 12.6 TH/MM3 (1.8-7.7) Lymphocytes # (Auto) 1.4 TH/MM3 (1.0-4.8) 1.6 TH/MM3 (1.0-4.8) Monocytes # (Auto) 1.3 TH/MM3 (0-0.9) 1.3 TH/MM3 (0-0.9) Eosinophils # (Auto) 0.1 TH/MM3 (0-0.4) 0.1 TH/MM3 (0-0.4) Basophils # (Auto) 0.1 TH/MM3 (0-0.2) 0.1 TH/MM3 (0-0.2) CBC Comment DIFF FINAL DIFF FINAL Differential Comment Blood Urea Nitrogen 22 MG/DL (7-18) 22 MG/DL (7-18) Creatinine 0.55 MG/DL (0.60-1.30) 0.59 MG/DL (0.60-1.30) Random Glucose 107 MG/DL (74-106) 101 MG/DL (74-106) Total Protein 5.9 GM/DL (6.4-8.2) 5.8 GM/DL (6.4-8.2) Albumin 1.9 GM/DL (3.4-5.0) 2.0 GM/DL (3.4-5.0) Calcium Level 8.0 MG/DL (8.5-10.1) 8.2 MG/DL (8.5-10.1) Alkaline Phosphatase 86 U/L (45-117) 81 U/L (45-117) Aspartate Amino Transf (AST/SGOT) 56 U/L (15-37) 55 U/L (15-37) Alanine Aminotransferase (ALT/SGPT) 48 U/L (12-78) 45 U/L (12-78) Total Bilirubin 0.6 MG/DL (0.2-1.0) 1.0 MG/DL (0.2-1.0) Sodium Level 144 MEQ/L (136-145) 143 MEQ/L (136-145) Potassium Level 4.0 MEQ/L (3.5-5.1) 3.6 MEQ/L (3.5-5.1) Chloride Level 110 MEQ/L (98-107) 111 MEQ/L (98-107) Carbon Dioxide Level 25.7 MEQ/L (21.0-32.0) 22.6 MEQ/L (21.0-32.0) Anion Gap 8 MEQ/L (5-15) 9 MEQ/L (5-15) Estimat Glomerular Filtration Rate 152 ML/MIN (>89) 140 ML/MIN (>89) Hematology Comments . (Norma Goodrich) Result Diagram: 11/26/1644 11/26/1644 Microbiology Microbiology Date/Time Source Procedure Growth Status 11/24/16 06:00 Blood Peripheral Aerobic Blood Culture - Preliminary NO GROWTH IN 2 DAYS Resulted 11/24/16 06:00 Blood Peripheral Anaerobic Blood Culture - Preliminary NO GROWTH IN 2 DAYS Resulted 11/24/16 05:55 Blood Peripheral Aerobic Blood Culture - Preliminary NO GROWTH IN 2 DAYS Resulted 11/24/16 05:55 Blood Peripheral Anaerobic Blood Culture - Preliminary NO GROWTH IN 2 DAYS Resulted 11/23/16 18:00 Sputum Endotracheal Gram Stain - Final Complete 11/23/16 18:00 Sputum Culture - Final Escherichia Coli Complete 11/23/16 18:00 Urine Catheterized Urine Urine Culture - Final NO GROWTH IN 48 HOURS. Complete . Imaging Last Impressions Chest X-Ray 11/24/16 0000 Signed Impressions: Service Date/Time: Thursday, November 24, 2016 07:42 - CONCLUSION: 1. Subsegmental atelectasis left base. There has been no significant change when compared to the prior exam. Kam Menezes MD Head CT 11/23/16 0600 Signed Impressions: Service Date/Time: Wednesday, November 23, 2016 04:23 - CONCLUSION: Multifocal intracranial hemorrhage as above, stable and/or decreasing in the interim. The 17 mm thick extra-axial blood on the right is potentially epidural but is stable. No new blood seen. No midline shift or ventriculomegaly. Pneumocephaly has resolved. Fabien Rodríguez MD Maxillofacial CT 11/13/16 1316 Signed Impressions: Service Date/Time: Sunday, November 13, 2016 13:11 - CONCLUSION: Air-fluid level with admixture of air and fluid in the left sphenoid sinus compartment. Otherwise negative. Acute fracture is not identified. Yariel Odell MD Thoracic Spine CT 11/13/161310 Signed Impressions: Service Date/Time: Sunday, November 13, 2016 13:15 - CONCLUSION: No fracture or subluxation. Bobby Rasmussen MD Lumbar Spine CT 11/13/161310 Signed Impressions: Service Date/Time: Sunday, November 13, 2016 13:15 - CONCLUSION: 1. No acute fracture. Spinal canal and neural foramen appear to be adequate throughout. 2. Dextroscoliosis of the lumbar spine with mild associated degenerative changes 3. Diverticular disease of the sigmoid without diverticulitis Aftab Cramer MD Chest CT 11/13/161310 Signed Impressions: Service Date/Time: Sunday, November 13, 2016 13:17 - CONCLUSION: 1. Negative CT scan of the thorax. Chuy Fitzpatrick MD Cervical Spine CT 11/13/161310 Signed Impressions: Service Date/Time: Sunday, November 13, 2016 13:13 - CONCLUSION: 1. No acute fracture the cervical spine identified. There are degenerative changes as above. 2. There is fracture of the right side of the occipital bone. There is subdural hematoma in the posterior fossa on the right and intraparenchymal hemorrhage within the left cerebellar hemisphere. This was assessed by CT imaging of the brain. Chuy Fitzptarick MD Abdomen/Pelvis CT 11/13/161310 Signed Impressions: Service Date/Time: Sunday, November 13, 2016 13:17 - CONCLUSION: Disproportionate dilatation of small bowel in the mid and upper abdomen relatively: Most consistent with ileus pattern. Surgical absence of the gallbladder with 2 cysts in the right lobe of the liver. Uncomplicated diverticuli of the sigmoid colon. 3 cm right testicle epididymal cyst.. Yariel Odell MD . Procedures 11/25/16 - J-tube placed via open approach. 11/24/16 - tracheostomy placement 11/24/16 - attempted esophageal PEG placement, failed. 11/13/16 - intubation 11/13/16 - right frontal manas hole with placement of ventriculostomy catheter 11/13/16- left suboccipital craniectomy, evacuation of cerebellar hemorrhage. . (Norma Goodrich) Assessment and Plan Disease Oriented Problem List: (1) (2) (3) (4) (5) Symptom Scale: (1) 0-10 Scale: Unable to quantify (2) 0-10 Scale: Unable to quantify Pertinent Non-Medical Issues Psychosocial:He was born in [place] and lived in many countries around the [place], moving to the [facility] in 1997 to settle in [place]. 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 He currently works at [email or web address]. He speaks multiple languages to include Slovak, Japanese, Cameroonian , Citizen Of [place] and Filipino. He lives with his mother to provide care for her, as she has Alzheimer's dementia. Spiritual: He was raised [place] and would appreciate [facility] visits. Legal: He has 3 daughters who will serve as joint healthcare proxies. His mother has Alzheimer's dementia and is unable to participate in decision-making. Ethical issues impacting care: Circumstances surrounding patient's injury are not known, however, The [employer] police are investigating and would like to speak with him regarding the circumstances once he is conscious and able to communicate. Important Contacts Susana Briseno - [phone] Sloan Briseno - [phone] Charlene Briseno - [phone] . Prognosis His prognosis is guarded. He has suffered an extensive head injury and is currently requiring mechanical ventilation. It is expected that he has a very long rehabilitation course ahead of him, should he survive this ICU admission. His hospital course is expected to be extended and he is likely to have sequelae of severe head trauma. Code Status: Full Code Plan PLAN: Legal decision maker: He has 3 daughters, Sloan Finn, Charlene Finn and Susana Finn Goals: Aggressive CODE STATUS: Full code SYMPTOMS: * Pain - currently receiving fentanyl patch with as needed Percocet and morphine. He is lightly sedated for vent synchrony, making pain assessment difficult. He is unable to communicate his needs. He will require frequent nursing assessments to evaluate changes in posture, countenance for possible pain. * Dyspnea - remains mechanically ventilated via tracheostomy. Ventilator weaned to 30% FiO2, breathing over the vent . Remains at risk for dyspnea due to possible aspiration, potential infection, immobility. Receiving scheduled DuoNeb. Palliative care will continue to follow the patient during hospital course as condition evolves, to assist patient/decision-maker with understanding of their medical conditions, weighing benefits/burdens of treatment options, for clarification of goals of treatment. Additionally will assist with any symptoms of palliative concern (Norma Goodrich) Attestation To help prompt me to consider important information that might be impacting today's encounter and assessment, information from prior notes written by myself or my colleagues may have been "brought forward" into today's note. My signature on this note, however, is an attestation that I personally performed the exam, history, and/or decision-making noted today, and, unless otherwise indicated, the interactions with patient, family, and staff as well as the review of records all occurred today. I also attest that the listed assessment and stated plan reflect my best clinical judgment today based on the combination of historical information, prior notes, and today's exam/ interactions. When time spent is documented, it refers only to time spent today by the signer, or if indicated, combined time spent today by collaborating physician/nurse practitioner. (Norma Goodrich) Collaborating MD Comments Chart reviewed. Case discussed with palliative care FACILITY MANAGER. Above GRACE note reviewed and I concur. . (Per Jane MD) Norma Goodrich Nov 26, 2016 13:31 Per Jane MD Nov 29, 2016 18:26
[2016-11-26] MEDS: oxyCODONE HCL ORAL CONC 20 MG/ML SYRINGE PO PRN (17:37)
[2016-11-26] MEDS: MAGNESIUM HYDROXIDE SUSP 30 ML CUP PO SCH (19:51)
[2016-11-27] VITALS (17 sets, daily range): BP systolic 146–168; BP diastolic 82–93; PULSE 72–100; RESP 18–20; TEMP 98.8–99.8; O2SAT 97–100
[2016-11-27] MEDS: SODIUM CHLORIDE 1 GRAM TAB PO SCH ×6 (02:00→20:20)
[2016-11-27] MEDS: METOPROLOL TARTRATE 5 MG/5 ML VIAL IV PUSH SCH ×4 (02:02→20:20)
[2016-11-27] MEDS: PROPOFOL 1000 MG/100 ML IV PRN ×2 (02:03→17:06)
[2016-11-27] MEDS: oxyCODONE HCL ORAL CONC 20 MG/ML SYRINGE PO PRN (03:45)
[2016-11-27 05:06] LABS: AST (GOT) 47 U/L (15-37); BICARBONATE 22.6 MEQ/L (21.0-32.0); CALCIUM 7.6 MG/DL (8.5-10.1); CHLORIDE 115 MEQ/L (98-107); CREATININE 0.44 MG/DL (0.60-1.30); GLOMERULAR FILTRATION RATE 197 ML/MIN (>89); GLUCOSE,RANDOM 95 MG/DL (74-106); SODIUM (NA) 145 MEQ/L (136-145)
[2016-11-27 05:30] LABS: ALKALINE PHOSPHATASE 72 U/L (45-117); ALT (GPT) 46 U/L (12-78); BLOOD UREA NITROGEN 18 MG/DL (7-18); TOTAL BILIRUBIN ADULT 0.8 MG/DL (0.2-1.0); TOTAL PROTEIN 5.8 GM/DL (6.4-8.2)
[2016-11-27] MEDS: hydrALAZINE HCL 20 MG/ML VIAL IV PUSH SCH ×3 (06:27→17:06)
[2016-11-27] MEDS: SODIUM CHLOR 0.9% 1000 ML INJ 1,000 ML IV SCH ×2 (07:00→21:21)
[2016-11-27] MEDS: CHLORHEXIDINE 0.12% (ORAL KIT) 15 ML CUP MT SCH ×2 (08:00→20:20)
[2016-11-27] MEDS: ENOXAPARIN SODIUM 30 MG/0.3 ML SYRINGE SQ SCH ×2 (08:18→20:21)
[2016-11-27] MEDS: LACTULOSE SYRUP 20 GM/30 ML CUP PO SCH ×2 (08:18→08:56)
[2016-11-27] MEDS: SODIUM CHLORIDE 0.9% FLUSH 10 ML FLUSH IV FLUSH SCH ×2 (08:19→20:21)
[2016-11-27] MEDS: FAMOTIDINE 20 MG TAB NG SCH ×3 (08:19→20:20)
[2016-11-27] MEDS: SENNOSIDES SYRUP 8.8 MG/5 ML CUP PO SCH ×2 (08:19→08:56)
--- NOTE | 2016-11-27 08:19 | HHI.PR ---
Neuropsych Emotional Emotional: UnabletoAssess: Emotional, Anxious/Fearful, Depressed/Sad, Hostile/ Resentful, Irritable/Angry/Frustrate, Labile, Constricted/Blunted Behavior Behavior: Unable to Asses: Behavior, Coping/Acceptance, Cooperative w/ Treatment, Motivation, Frustration Tolerance/[place], Impulsive/Agitated, Suicidal/ Homicidal Risk Cognitive Cognitive: Unable to Asses: Cognitive, Attention/Concentration, Confused/ Orientation, Insight/Awareness, Judgement/Problem-Solving, Memory Psychosocial Psychosocial: Intact: Psychosocial, Family/Other Adjustment, Realistic Expectation, Unable to Asses: Self-Esteem/Confidence Progress Notes/Response to Tx Contents of Sessions: Adjustment, Level of Consciousness Time with Patient: 15 minutes Premorbid psychological status Premorbid Cognitive, Emotional and Behavioral Status: Stable. The patient is originally from [facility] and has a solid work history prior to this injury. The patient has no psychiatric difficulties, as described above. Substance abuse history is unremarkable. Behavioral Reactions of Patient and Family/Support System: Stable. The patient s family is experiencing ongoing issues of adjustment given the nature of the injury, and this aspect of recovery will require ongoing monitoring. Emotional/Behavioral Status of Patient and Family/Support System: Stable. Pertinent issues, if appropriate to this patients clinical care, are described in detail above. Maximizing acute care outcome It is recommended that the patient be monitored for emergent behavioral impulsivity as the medical condition evolves. This patients neuropathological challenges may limit their rehabilitation potential going forward, and these challenges will require specialized therapeutic skills to maximize outcome. Additionally, the patients family is experiencing ongoing issues of adjustment given the traumatic nature of the injury, and they will need ongoing psychological assistance. Anticipated Problems Ongoing areas of concern will include behavioral impulsivity, lack of insight and judgment, which is expected to improve with time and treatment. Presently , the patient remains intubated and sedated. Treatment Plan This clinician will continue to follow with you throughout the course of this patients acute care treatment, and I will be available to meet with the patient s family/support system to facilitate their understanding and the ongoing care of their family member. The goals of neuropsychological intervention shall be both educational and supportive to the family/support system as is deemed clinically appropriate. [facility] Level: III:Localized response-total assist Impression This is a 61 year old man s/p TBI 2T probable fall. Diagnosis: (1) Major neurocognitive disorder as late effect of traumatic brain injury without behavioral disturbance Status: Acute Progress Note Narrative Ongoing follow-up of patient seen during daily trauma rounds. This is day 14 post injury. The patient is s/p J-tube placement. He is opening his eyes, questionable tracking and not following. Labs were pending, and he remains on sedation. He is Rancho III. I will continue to follow. Johan Pierson PhD Nov 27, 2016 8:19 am
--- NOTE | 2016-11-27 08:19 | HHI.PR ---
Neuropsych Emotional Emotional: UnabletoAssess: Emotional, Anxious/Fearful, Depressed/Sad, Hostile/ Resentful, Irritable/Angry/Frustrate, Labile, Constricted/Blunted Behavior Behavior: Unable to Asses: Behavior, Coping/Acceptance, Cooperative w/ Treatment, Motivation, Frustration Tolerance/[place], Impulsive/Agitated, Suicidal/ Homicidal Risk Cognitive Cognitive: Unable to Asses: Cognitive, Attention/Concentration, Confused/ Orientation, Insight/Awareness, Judgement/Problem-Solving, Memory Psychosocial Psychosocial: Intact: Psychosocial, Family/Other Adjustment, Realistic Expectation, Unable to Asses: Self-Esteem/Confidence Progress Notes/Response to Tx Contents of Sessions: Adjustment, Level of Consciousness Time with Patient: 15 minutes Premorbid psychological status Premorbid Cognitive, Emotional and Behavioral Status: Stable. The patient is originally from [facility] and has a solid work history prior to this injury. The patient has no psychiatric difficulties, as described above. Substance abuse history is unremarkable. Behavioral Reactions of Patient and Family/Support System: Stable. The patient s family is experiencing ongoing issues of adjustment given the nature of the injury, and this aspect of recovery will require ongoing monitoring. Emotional/Behavioral Status of Patient and Family/Support System: Stable. Pertinent issues, if appropriate to this patients clinical care, are described in detail above. Maximizing acute care outcome It is recommended that the patient be monitored for emergent behavioral impulsivity as the medical condition evolves. This patients neuropathological challenges may limit their rehabilitation potential going forward, and these challenges will require specialized therapeutic skills to maximize outcome. Additionally, the patients family is experiencing ongoing issues of adjustment given the traumatic nature of the injury, and they will need ongoing psychological assistance. Anticipated Problems Ongoing areas of concern will include behavioral impulsivity, lack of insight and judgment, which is expected to improve with time and treatment. Presently , the patient remains intubated and sedated. Treatment Plan This clinician will continue to follow with you throughout the course of this patients acute care treatment, and I will be available to meet with the patient s family/support system to facilitate their understanding and the ongoing care of their family member. The goals of neuropsychological intervention shall be both educational and supportive to the family/support system as is deemed clinically appropriate. [facility] Level: III:Localized response-total assist Impression This is a 61 year old man s/p TBI 2T probable fall. Diagnosis: (1) Major neurocognitive disorder as late effect of traumatic brain injury without behavioral disturbance Status: Acute Progress Note Narrative Ongoing follow-up of patient seen during daily trauma rounds. This is day 14 post injury. The patient is s/p J-tube placement. He is opening his eyes, questionable tracking and not following. Labs were pending, and he remains on sedation. He is Rancho III. I will continue to follow. Johan Pierson PhD Nov 27, 2016 8:19 am
[2016-11-27 09:25] LABS: AUTOMATED NEUTROPHIL # 16.2 TH/MM3 (1.8-7.7); BASOPHIL # 0.1 TH/MM3 (0-0.2); BASOPHIL % 0.7 % (0.0-2.0); EOSINOPHIL # 0.1 TH/MM3 (0-0.4); EOSINOPHIL % 0.5 % (0.0-4.0); HEMATOCRIT 24.5 % (39.0-51.0); LYMPH % 7.3 % (9.0-44.0); LYMPHOCYTE # 1.4 TH/MM3 (1.0-4.8); MEAN CORPUSCULAR HEMOGLOBIN 32.9 PG (27.0-34.0); MEAN CORPUSCULAR HGB CONC 32.6 % (32.0-36.0); MEAN PLATELET VOLUME 9.2 FL (7.0-11.0); MONO % 6.1 % (0.0-8.0); MONOCYTE # 1.1 TH/MM3 (0-0.9); NEUT % 85.4 % (16.0-70.0); PLATELET COUNT 281 TH/MM3 (150-450); RED BLOOD COUNT 2.42 MIL/MM3 (4.50-5.90); RED CELL DISTRIBUTION WIDTH 18.5 % (11.6-17.2); WHITE BLOOD COUNT 18.9 TH/MM3 (4.0-11.0)
--- NOTE | 2016-11-27 09:34 | HHI.NSPN ---
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 A 1.7 cm right temporal parietal subdural hematoma. Contusions are noted in the left cerebellar hemisphere up to 5 cm in size with compression of the fourth ventricle and a contusion is noted in the right temporal lobe. Small contusion cortically in the lower left parietal lobe. He underwent emergent suboccipital decompressive craniectomy, C1 laminectomy for evacuation of cerebellar hematoma, with placement of ventriculostomy drain on 11/13/1611/14: intubated, and very well sedated. sedation lowered pt restless. EVD draining well. ICPs wnl overnight. 11/15: off propofol, remains on fentanyl drip. Moving spontaneously. ICPs stable overnight, EVD draining well. 11/16: off sedation opens eyes, moving all four extremities but not following commands. EVD draining well, ICPs remains wnl. 11/17: remains intubated and sedated. ICPs stable, EVD draining well. f/u CT Brain yesterday completed and reviewed by Dr. Grimm. 11/18: sedated on diprivan, slightly opens eyes to voice. withdraws x 4 extremities but does not follow commands. 11/19: when sedation lowered, opens eyes and withdraws x 4, placed back on sedation for blood pressure control. 11/20: intubated, sedated. EVD draning well, ICPs as high as 10 overnight. nursing reports ?weaker left side today. 11/23: 3% NS restarted wednesday afternoon with improved ICPs. stable over the weekend. repeat CT Head over the weekend completed. 11/24: nursing reports appears to track to voice, moving all four extremities ? weaker on the left, ICPs stable overnight, central line discontinued. 11/25: no acute events overnight, ICPs stable 11/26: ICPs remains stable following raising of ventriculostomy drain, appearing more alert today, tracking 11/27: EVD clamped most of yesterday, then patient placed on CPAP with ICPs escalating to the mid 20's. Patient placed back on vent, ICPs improved. Then with intermittent elevation overnight, EVD was reopened with drainage of CSF and improved ICPs. Currently reclamped. (Kathy Moctezuma) Labs, Micro, & Vital Signs Results Date Time Temp Pulse Resp B/P (MAP) Pulse Ox O2 Delivery O2 Flow Rate FiO2 11/27/16 09:20 98 30 11/27/16 08:00 82 11/27/16 08:00 30 11/27/16 08:00 98.8 78 18 153/93 (113) 100 11/27/16 06:00 94 11/27/16 04:35 97 30 11/27/16 04:00 86 11/27/16 04:00 98.8 86 18 153/91 (111) 100 11/27/16 04:00 30 11/27/16 02:00 100 11/27/16 01:21 98 30 11/27/16 00:00 90 11/27/16 00:00 30 11/27/16 00:00 99.2 90 18 168/93 (118) 100 11/26/16 22:00 86 11/26/16 20:22 100 30 11/26/16 20:00 78 11/26/16 20:00 99.2 78 18 123/83 (96) 100 11/26/16 20:00 30 11/26/16 18:00 80 11/26/16 17:51 99 30 11/26/16 16:00 83 11/26/16 16:00 99.0 83 18 144/84 (104) 100 11/26/16 16:00 30 11/26/16 14:05 99 30 11/26/16 14:00 77 11/26/16 13:55 30 11/26/16 12:00 99.0 76 18 127/83 (98) 100 11/26/16 12:00 30 11/26/16 12:00 90 11/26/16 10:00 84 Constitutional Vital Signs Date Time Temp Pulse Resp B/P (MAP) Pulse Ox O2 Delivery O2 Flow Rate FiO2 11/27/16 09:20 98 30 11/27/16 08:00 82 11/27/16 08:00 30 11/27/16 08:00 98.8 78 18 153/93 (113) 100 11/27/16 06:00 94 11/27/16 04:35 97 30 11/27/16 04:00 86 11/27/16 04:00 98.8 86 18 153/91 (111) 100 11/27/16 04:00 30 11/27/16 02:00 100 11/27/16 01:21 98 30 11/27/16 00:00 90 11/27/16 00:00 30 11/27/16 00:00 99.2 90 18 168/93 (118) 100 11/26/16 22:00 86 11/26/16 20:22 100 30 11/26/16 20:00 78 11/26/16 20:00 99.2 78 18 123/83 (96) 100 11/26/16 20:00 30 11/26/16 18:00 80 11/26/16 17:51 99 30 11/26/16 16:00 83 11/26/16 16:00 99.0 83 18 144/84 (104) 100 11/26/16 16:00 30 11/26/16 14:05 99 30 11/26/16 14:00 77 11/26/16 13:55 30 11/26/16 12:00 99.0 76 18 127/83 (98) 100 11/26/16 12:00 30 11/26/16 12:00 90 11/26/16 10:00 84 (Kathy Moctezuma) Physical Exam Mr. Villalta appears awake, tracking with eyes but not following commands. Surgical incision healing well, no redness, drainage, swelling or other signs of infection Right ventriculostomy at 20 cm H20, currently clamped with ICP=9 Cranial Nerves: Pupils 3-4 mm b/l. Tracking, gross EOMs appear intact. Bilateral periorbital ecchymoses improving, conjunctival hemorrhages improving. Motor: minimal withdraws lower extremities to pain, no movement in the upper extremities. Reflexes: Trace throughout. Positive b/l Babinski. No ankle clonus. Cerebellar: cannot assess due to current clinical condition Neck: tracheostomy on mechanical ventilation (Kathy Moctezuma) Medications Current Medications Current Medications Medications (Trade) Dose Ordered Sig/Femi Route PRN Reason Start Time Stop Time Status Last Admin Dose Admin Sodium Chloride (NS Flush) 2 ml UNSCH PRN IV FLUSH FLUSH AFTER USING IV ACCESS 11/13/16 15:00 Sodium Chloride (NS Flush) 2 ml BID IV FLUSH 11/13/16 21:00 11/27/16 08:19 Ondansetron HCl (Zofran Inj) 4 mg Q6H PRN IV NAUSEA OR VOMITING 11/13/16 15:00 11/27/16 02:15 Naloxone HCl (Narcan Inj) 0.4 mg UNSCH PRN IV PUSH SEE LABEL COMMENTS 11/13/16 15:00 Bisacodyl (Dulcolax Supp) 10 mg DAILY PRN RECTAL CONSTIPATION 11/13/16 15:00 Calcium Gluconate (Calcium Gluconate Inj) 1 gm UNSCH PRN IV SEE LABEL COMMENTS 11/13/16 15:00 Potassium Chloride 100 ml @ 50 mls/hr UNSCH PRN IV POTASSIUM LESS THAN 4 11/13/16 15:00 11/27/16 03:45 Magnesium Sulfate 4 gm/Sodium Chloride 108 ml @ 108 mls/hr UNSCH PRN IV MAGNESIUM LESS THAN 2 11/13/16 15:00 Propofol 100 ml @ 1.65 mls/hr TITRATE PRN IV SEDATION 11/13/16 20:15 11/27/16 02:03 Chlorhexidine Gluconate (Peridex 0.12% Liq) 15 ml BID@08,20 MT 11/14/16 08:00 11/27/16 08:00 Magnesium Oxide (Mag-Ox) 800 mg UNSCH PRN PO For Magnesium 1.2 - 1.6 mg/dL 11/14/16 02:30 Magnesium Sulfate 4 gm/Sodium Chloride 100 ml @ 50 mls/hr UNSCH PRN IV For Magnesium 0.9 - 1.1 mg/dL 11/14/16 02:30 Magnesium Sulfate 2 gm/Sodium Chloride 100 ml @ 50 mls/hr UNSCH PRN IV For Magnesium 1.2 - 1.6 mg/dL 11/14/16 02:30 Potassium Chloride 100 ml @ 50 mls/hr Q2H PRN IV For Potassium 2.8 - 3.2 mEq/L 11/14/16 02:30 11/17/16 10:35 Potassium Chloride 100 ml @ 50 mls/hr Q2H PRN IV For Potassium 3.3 - 3.5 mEq/L 11/14/16 02:30 Potassium Chloride 100 ml @ 50 mls/hr Q2H PRN IV For Potassium 2.8 - 3.2 mEq/L 11/14/16 02:30 Potassium Chloride 100 ml @ 25 mls/hr UNSCH PRN IV For Potassium 3.3 - 3.5 mEq/L 11/14/16 02:30 11/18/16 04:50 Potassium Phosphate (K-Phos) 2,000 mg Q4H PRN PO For Phosphorus < 2.5 mg/dL 11/14/16 02:30 Potassium Phosphate (K-Phos) 2,000 mg UNSCH PRN PO/TUBE SEE LABEL COMMENTS 11/14/16 02:30 Potassium Phosphate 30 mmol/ Sodium Chloride 260 ml @ 42 mls/hr UNSCH PRN IV SEE LABEL COMMENTS 11/14/16 02:30 Sodium Phosphate 30 mmol/Sodium Chloride 250 ml @ 42 mls/hr UNSCH PRN IV For Phosphorus < 2.5 mg/dL 11/14/16 02:30 Albuterol/ Ipratropium (Duoneb Neb) 1 ampule Q2HR NEB PRN INH WHEEZING 11/14/16 02:30 Magnesium Hydroxide (Milk Of Magnesia Liq) 30 ml HS PO 11/15/16 21:00 11/20/16 20:25 Lactulose (Lactulose Liq) 30 ml DAILY PO 11/15/16 09:00 11/27/16 08:56 Ceftriaxone Sodium 2000 mg/ Sodium Chloride 100 ml @ 200 mls/hr Q24H IV 11/17/16 13:00 11/26/16 13:09 Enoxaparin Sodium (Lovenox Inj) 30 mg Q12H SQ 11/20/16 21:00 Future hold 11/27/16 08:18 Hydralazine HCl (Apresoline Inj) 10 mg Q6HR IV PUSH 11/22/16 11:00 11/27/16 06:27 Metoprolol Tartrate (Lopressor Inj) 5 mg Q6H IV PUSH 11/22/16 14:00 11/27/16 08:18 Fentanyl (Duragesic 50 Mcg Patch.72 Hr) 1 patch Q3D T-DERMAL 11/22/16 11:00 11/25/16 10:24 Miscellaneous Information 1 Q3D T-DERMAL 11/25/16 11:00 11/25/16 10:23 Labetalol HCl (Trandate Inj) 10 mg Q4H PRN IV PUSH SBP>160, DBP>90 11/22/16 23:45 11/23/16 15:56 Sodium Chloride (Sodium Chloride) 2 gm Q6H PO 11/23/16 20:00 11/27/16 08:56 Acetaminophen (Tylenol 650 Mg/ 20 ml Liq) 650 mg Q4H PRN PO Temp > 101 11/26/16 07:45 Sennosides (Senna Liq) 8.8 mg DAILY PO 11/26/16 09:00 11/27/16 08:56 Oxycodone HCl (Roxicodone Intensol Liq) 5 mg Q6H PRN PO pain >3 11/26/16 09:00 11/27/16 03:45 Famotidine (Pepcid) 20 mg BID NG 11/26/16 09:00 11/27/16 08:56 Sodium Chloride 1,000 ml @ 75 mls/hr [id number] IV 11/26/16 11:00 11/27/16 07:00 (Kathy Moctezuma) Medical Decision Making MDM Remarks Middle age 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 A 1.7 cm right temporal parietal subdural hematoma and contusions. Left cerebellar contusions with compression of the fourth ventricle he underwent emergent suboccipital decompressive craniectomy, C1 laminectomy for evacuation of cerebellar hematoma, with placement of ventriculostomy drain on 11/13/16 f/u CT Brain 11/23: decreasing in size of right SDH, improving cerebellar hematoma, otherwise stable compared to CT Head 11/16 (Kathy Moctezuma) Plan Plan Remarks challenging ventriculostomy drain, reclamped today, with ICP monitoring, f/u CT Head tomorrow am if drain remains clamp and patient tolerating, if f/u CT Head stable, dc ventriculostomy drain, hold CPAP trials for now dc surgical sutures (Kathy Moctezuma) Attending Statement The exam, history, and the medical decision-making described in the above note were completed with the assistance of the mid-level provider. I reviewed and agree with the findings presented. I attest that I had a [id number] encounter with the patient on the same day, and personally performed and documented my assessment and findings in the medical record. (Stu Grimm MD) Kathy Moctezuma Nov 27, 2016 09:34 Stu Grimm MD Nov 29, 2016 17:55
--- NOTE | 2016-11-27 10:42 | RADRPT ---
EXAM DATE/TIME: 11/27/2016 10:14 [facility] COMPARISON: CHEST SINGLE AP, November 24, 2016, 7:42. INDICATIONS : Short of breath. MEDICAL HISTORY : None. SURGICAL HISTORY : None. ENCOUNTER: Subsequent ACUITY: 1 week PAIN SCORE: 0/10 LOCATION: Bilateral chest FINDINGS: Interval placement of tracheostomy catheter with tip at the level of the clavicles. Right IJ central line has been removed. NGT is in the fundus of the stomach. Elevation of the left hemidiaphragm with a suspected trace left pleural effusion and associated airspace disease in the left lung base. There is also mild airspace disease in the right lung base. Cardiomediastinal contours are stable. Remainde r of the exam is unchanged. CONCLUSION: 1. Tubes and lines, as above. 2. Suspected trace left pleural effusion with associated mild worsening left lower lobe airspace cons olidation. 3. Mild right lower lobe airspace disease, likely atelectasis.. Hola Adamson MD on November 27, 2016 at 10:38 Board Certified Radiologist. This report was verified electronically.
--- NOTE | 2016-11-27 11:25 | HHI.HCPN ---
Reason for visit a. To assist with evaluation and management of symptoms including: Pain, dyspnea, nausea b. To assist medical decision maker(s) with: better understanding of current medical conditions; weighing benefits/burdens of medical treatment options; making medical treatment decisions. Subjective/Interval History This is a 61 year old male brought to [facility] as a trauma alert under [facility] 11/13/16, after being found down at home by family with an obvious scalp hematoma to the posterior part of his head, unconscious. Per my discussion with his daughter, Sloan Briseno, her grandmother had contacted her that she was unable to help her father get up. The daughter came immediately to the home to find her father lying upstairs in the hallway in a pool of blood. Blood was found on his bed, down stairs near the entry way and several other places in the home. She describes her father as unconscious at that time. Emergency services were summoned, to include the [place] [employer] who is still investigating. He was emergently intubated in the ED and underwent left suboccipital craniectomy with evacuation of cerebellar hemorrhage and placement of a ventriculostomy catheter via a right frontal manas hole. He is seen in the intensive care unit status post tracheostomy. Interim history 11/24 Dr. Wade attempted placement of an endoscopic PEG tube unsuccessfully. 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 He underwent bronchoscopy by Dr. Kelly and placement of tracheostomy by Dr. Hitchcock. 11/25 he underwent successful open placement of jejunostomy tube by Dr. Hitchcock. At this evaluation his eyes are open but do not focus or engage. Sometimes he appears to blink to direction and sometimes spontaneously. He is unable to move fingers or toes at this evaluation. 11/26 seen at bedside with daughters, Sloan and Susana. Moving feet bilaterally to command, somewhat limited tracking noted as daughters move around the bed. Not moving left hand yet. 11/27 - eyes open, awake, right eyelid half closed. Then on PRVC/AC mode. Failed CPAP trials yesterday after 10 minutes. Attempted clamp of ventriculostomy tube yesterday with some increase in ICP during CPAP trials. ICPs improved when placed back on ventilator rate. Required unclamping of the ventriculostomy tube overnight due to a recurrence in ICP increases. Ventriculostomy tube clamped again today. Pending CT to reevaluate with clamped tube. . Family/friend interactions Had meeting with daughters, Sloan and Susana, yesterday. Medical update given. Goals remain aggressive. . Advance Directives Living Will: Never completed Health Care Surrogate: Never completed Durable Power of Bagger Meat: Never completed Objective Vital Signs Date Time Temp Pulse Resp B/P (MAP) Pulse Ox O2 Delivery O2 Flow Rate FiO2 11/27/16 10:00 90 11/27/16 09:20 98 30 11/27/16 08:00 82 11/27/16 08:00 30 11/27/16 08:00 98.8 78 18 153/93 (113) 100 11/27/16 06:00 94 11/27/16 04:35 97 30 11/27/16 04:00 86 11/27/16 04:00 98.8 86 18 153/91 (111) 100 11/27/16 04:00 30 11/27/16 02:00 100 11/27/16 01:21 98 30 11/27/16 00:00 90 11/27/16 00:00 30 11/27/16 00:00 99.2 90 18 168/93 (118) 100 11/26/16 22:00 86 11/26/16 20:22 100 30 11/26/16 20:00 78 11/26/16 20:00 99.2 78 18 123/83 (96) 100 11/26/16 20:00 30 11/26/16 18:00 80 11/26/16 17:51 99 30 11/26/16 16:00 83 11/26/16 16:00 99.0 83 18 144/84 (104) 100 11/26/16 16:00 30 11/26/16 14:05 99 30 11/26/16 14:00 77 11/26/16 13:55 30 11/26/16 12:00 99.0 76 18 127/83 (98) 100 11/26/16 12:00 30 11/26/16 12:00 90 Intake & Output 11/27/16 11/27/16 07:00 19:00 Intake Total 310 ml Output Total 1741 ml Balance -1431 ml Tube Feeding 210 ml Other 100 ml Output Urine Total 825 ml Stool Total 0 ml Gastric Drainage Total 600 ml Emesis 300 ml Drainage Total 16 ml Physical Exam CONSTITUTIONAL/GENERAL: This is a thin middle-aged male, lying in bed, ventilated via tracheostomy, eyes open to stimulation, intermittently focusing and tracking. TUBES/LINES/DRAINS: Left radial art line, right upper arm PIV, right antecubital PIV, triple-lumen right IJ, J tube SKIN: No jaundice, rashes, or lesions. Skin temperature appropriate. Not diaphoretic. HEAD: Right cranial incision healing well, right ventriculostomy. EYES: Pupils 3 mm, equal and round and reactive. Bilateral scleral injection. NECK: Trachea midline. Midline tracheostomy. CARDIOVASCULAR: Regular rate and rhythm without murmurs, gallops, or rubs. Peripheral pulses symmetric. RESPIRATORY/CHEST: Symmetric, unlabored respirations. Breath sounds clear to auscultation on right, coarse with scattered rhonchi on left. GASTROINTESTINAL: Abdomen soft, nondistended. No hepato-splenomegaly, or palpable masses. Palpable aortic pulse. Bowel sounds present. J-tube clamped. Tube feeding via NG tube GENITOURINARY: Without palpable bladder distension. Clark catheter in place. MUSCULOSKELETAL: Extremities without clubbing, cyanosis, or edema. No mottling or clubbing. Spontaneous movement seen in bilateral lower and right upper extremity, no movement seen in left upper extremity. NEUROLOGICAL: eyes open, blinking, some tracking and focusing noted. PSYCHIATRIC: Calm, lightly sedated. . Diagnostic Tests Laboratory Laboratory Tests Test 11/25/16 03:56 11/26/16 05:44 11/27/16 04:23 11/27/16 08:56 White Blood Count 14.4 TH/MM3 (4.0-11.0) 15.7 TH/MM3 (4.0-11.0) 18.9 TH/MM3 (4.0-11.0) Red Blood Count 2.86 MIL/MM3 (4.50-5.90) 2.97 MIL/MM3 (4.50-5.90) 2.42 MIL/MM3 (4.50-5.90) Hemoglobin 9.5 GM/DL (13.0-17.0) 10.0 GM/DL (13.0-17.0) 8.0 GM/DL (13.0-17.0) Hematocrit 28.4 % (39.0-51.0) 29.3 % (39.0-51.0) 24.5 % (39.0-51.0) Mean Corpuscular Volume 99.4 FL (80.0-100.0) 98.8 FL (80.0-100.0) 101.0 FL (80.0-100.0) Mean Corpuscular Hemoglobin 33.3 PG (27.0-34.0) 33.7 PG (27.0-34.0) 32.9 PG (27.0-34.0) Mean Corpuscular Hemoglobin Concent 33.5 % (32.0-36.0) 34.1 % (32.0-36.0) 32.6 % (32.0-36.0) Red Cell Distribution Width 18.3 % (11.6-17.2) 18.5 % (11.6-17.2) 18.5 % (11.6-17.2) Platelet Count 275 TH/MM3 (150-450) 267 TH/MM3 (150-450) 281 TH/MM3 (150-450) Mean Platelet Volume 9.4 FL (7.0-11.0) 9.4 FL (7.0-11.0) 9.2 FL (7.0-11.0) Neutrophils (%) (Auto) 79.6 % (16.0-70.0) 80.7 % (16.0-70.0) 85.4 % (16.0-70.0) Lymphocytes (%) (Auto) 9.9 % (9.0-44.0) 10.2 % (9.0-44.0) 7.3 % (9.0-44.0) Monocytes (%) (Auto) 9.2 % (0.0-8.0) 8.2 % (0.0-8.0) 6.1 % (0.0-8.0) Eosinophils (%) (Auto) 0.8 % (0.0-4.0) 0.3 % (0.0-4.0) 0.5 % (0.0-4.0) Basophils (%) (Auto) 0.5 % (0.0-2.0) 0.6 % (0.0-2.0) 0.7 % (0.0-2.0) Neutrophils # (Auto) 11.4 TH/MM3 (1.8-7.7) 12.6 TH/MM3 (1.8-7.7) 16.2 TH/MM3 (1.8-7.7) Lymphocytes # (Auto) 1.4 TH/MM3 (1.0-4.8) 1.6 TH/MM3 (1.0-4.8) 1.4 TH/MM3 (1.0-4.8) Monocytes # (Auto) 1.3 TH/MM3 (0-0.9) 1.3 TH/MM3 (0-0.9) 1.1 TH/MM3 (0-0.9) Eosinophils # (Auto) 0.1 TH/MM3 (0-0.4) 0.1 TH/MM3 (0-0.4) 0.1 TH/MM3 (0-0.4) Basophils # (Auto) 0.1 TH/MM3 (0-0.2) 0.1 TH/MM3 (0-0.2) 0.1 TH/MM3 (0-0.2) CBC Comment DIFF FINAL DIFF FINAL DIFF FINAL Differential Comment Blood Urea Nitrogen 22 MG/DL (7-18) 22 MG/DL (7-18) 18 MG/DL (7-18) Creatinine 0.55 MG/DL (0.60-1.30) 0.59 MG/DL (0.60-1.30) 0.44 MG/DL (0.60-1.30) Random Glucose 107 MG/DL (74-106) 101 MG/DL (74-106) 95 MG/DL (74-106) Total Protein 5.9 GM/DL (6.4-8.2) 5.8 GM/DL (6.4-8.2) 5.8 GM/DL (6.4-8.2) Albumin 1.9 GM/DL (3.4-5.0) 2.0 GM/DL (3.4-5.0) 2.0 GM/DL (3.4-5.0) Calcium Level 8.0 MG/DL (8.5-10.1) 8.2 MG/DL (8.5-10.1) 7.6 MG/DL (8.5-10.1) Alkaline Phosphatase 86 U/L (45-117) 81 U/L (45-117) 72 U/L (45-117) Aspartate Amino Transf (AST/SGOT) 56 U/L (15-37) 55 U/L (15-37) 47 U/L (15-37) Alanine Aminotransferase (ALT/SGPT) 48 U/L (12-78) 45 U/L (12-78) 46 U/L (12-78) Total Bilirubin 0.6 MG/DL (0.2-1.0) 1.0 MG/DL (0.2-1.0) 0.8 MG/DL (0.2-1.0) Sodium Level 144 MEQ/L (136-145) 143 MEQ/L (136-145) 145 MEQ/L (136-145) Potassium Level 4.0 MEQ/L (3.5-5.1) 3.6 MEQ/L (3.5-5.1) 3.8 MEQ/L (3.5-5.1) Chloride Level 110 MEQ/L (98-107) 111 MEQ/L (98-107) 115 MEQ/L (98-107) Carbon Dioxide Level 25.7 MEQ/L (21.0-32.0) 22.6 MEQ/L (21.0-32.0) 22.6 MEQ/L (21.0-32.0) Anion Gap 8 MEQ/L (5-15) 9 MEQ/L (5-15) 7 MEQ/L (5-15) Estimat Glomerular Filtration Rate 152 ML/MIN (>89) 140 ML/MIN (>89) 197 ML/MIN (>89) Hematology Comments Result Diagram: 11/27/16 0856 11/27/16 0423 Procedures 11/25/16 - J-tube placed via open approach. 11/24/16 - tracheostomy placement 11/24/16 - attempted esophageal PEG placement, failed. 11/13/16 - intubation 11/13/16 - right frontal manas hole with placement of ventriculostomy catheter 11/13/16- left suboccipital craniectomy, evacuation of cerebellar hemorrhage. . Assessment and Plan Disease Oriented Problem List: (1) Status post craniectomy (2) Traumatic brain injury (3) Skull fractures (4) Intracranial hemorrhage (5) Major neurocognitive disorder as late effect of traumatic brain injury without behavioral disturbance Symptom Scale: (1) Dyspnea and respiratory abnormalities 0-10 Scale: Unable to quantify (2) Pain, generalized 0-10 Scale: Unable to quantify Pertinent Non-Medical Issues Psychosocial:He was born in [place] and lived in many countries around the world, moving to the [facility] in 1997 to settle in [place]. 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 He currently works at [employer]. He speaks multiple languages to include Setswana, [place]an, [place] Islander , Hong Konger and Monegasque. He lives with his mother to provide care for her, as she has Alzheimer's dementia. Spiritual: He was raised [employer] and would appreciate [facility] visits. Legal: He has 3 daughters who will serve as joint healthcare proxies. His mother has Alzheimer's dementia and is unable to participate in decision-making. Ethical issues impacting care: Circumstances surrounding patient's injury are not known, however, The [place] police are investigating and would like to speak with him regarding the circumstances once he is conscious and able to communicate. Important Contacts Susana Briseno - [phone] Sloan Briseno - [phone] Charlene Briseno - [phone] . Prognosis His prognosis is guarded. He has suffered an extensive head injury and is currently requiring mechanical ventilation. It is expected that he has a very long rehabilitation course ahead of him, should he survive this ICU admission. His hospital course is expected to be extended and he is likely to have sequelae of severe head trauma. Code Status: Full Code Plan PLAN: Legal decision maker: He has 3 daughters, Sloan Finn, Charlene Briseno and Susana Briseno Goals: Aggressive CODE STATUS: Full code SYMPTOMS: * Pain - currently receiving fentanyl patch with as needed Roxicodone. He has been using approximately 5 mg daily. He is lightly sedated for vent synchrony, making pain assessment difficult. He is unable to communicate his needs. He will require frequent nursing assessments to evaluate changes in posture, countenance for possible pain. * Dyspnea - remains mechanically ventilated via tracheostomy. Ventilator weaned to 30% FiO2, no spontaneous breathing over the vent today. Remains at risk for dyspnea due to possible aspiration, potential infection, immobility. Receiving scheduled DuoNeb. CPAP trials planned for tomorrow. * Nausea - had 300 mL of emesis overnight, received ondansetron. No recurrence since that time. Likely multi-factorial, tube feeding, anxiety, increased ICP. Plan to let patient rest today with CT to determine stable ICP with clamped ventriculostomy tube. Palliative care will continue to follow the patient during hospital course as condition evolves, to assist patient/decision-maker with understanding of their medical conditions, weighing benefits/burdens of treatment options, for clarification of goals of treatment. Additionally will assist with any symptoms of palliative concern Attestation To help prompt me to consider important information that might be impacting today's encounter and assessment, information from prior notes written by myself or my colleagues may have been "brought forward" into today's note. My signature on this note, however, is an attestation that I personally performed the exam, history, and/or decision-making noted today, and, unless otherwise indicated, the interactions with patient, family, and staff as well as the review of records all occurred today. I also attest that the listed assessment and stated plan reflect my best clinical judgment today based on the combination of historical information, prior notes, and today's exam/ interactions. When time spent is documented, it refers only to time spent today by the signer, or if indicated, combined time spent today by collaborating physician/nurse practitioner. Norma Goodrich Nov 27, 2016 11:25
[2016-11-27] MEDS: cefTRIAXone INJ 2,000 MG in SODIUM CHLORIDE 0.9% INJ 100 ML IV SCH (12:14)
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
[2016-11-27] MEDS ORDERED: ALPRAZolam 0.25 MG TAB PO PRN (15:00)
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
[2016-11-27] MEDS: MAGNESIUM HYDROXIDE SUSP 30 ML CUP PO SCH (20:20)
[2016-11-28] VITALS (18 sets, daily range): BP systolic 100–169; BP diastolic 59–88; PULSE 66–108; RESP 13–18; TEMP 98.8–100.1; O2SAT 97–100
[2016-11-28] MEDS: hydrALAZINE HCL 20 MG/ML VIAL IV PUSH SCH ×4 (01:09→17:51)
[2016-11-28] MEDS: SODIUM CHLORIDE 1 GRAM TAB PO SCH ×4 (01:39→20:28)
[2016-11-28] MEDS: METOPROLOL TARTRATE 5 MG/5 ML VIAL IV PUSH SCH ×4 (03:38→20:28)
[2016-11-28 05:18] LABS: AUTOMATED NEUTROPHIL # 5.1 TH/MM3 (1.8-7.7); BASOPHIL # 0.1 TH/MM3 (0-0.2); BASOPHIL % 1.1 % (0.0-2.0); EOSINOPHIL # 0.1 TH/MM3 (0-0.4); EOSINOPHIL % 0.9 % (0.0-4.0); HEMOGLOBIN 7.7 GM/DL (13.0-17.0); LYMPH % 26.8 % (9.0-44.0); LYMPHOCYTE # 2.3 TH/MM3 (1.0-4.8); MEAN CELL VOLUME 99.2 FL (80.0-100.0); MEAN CORPUSCULAR HEMOGLOBIN 33.3 PG (27.0-34.0); MEAN CORPUSCULAR HGB CONC 33.6 % (32.0-36.0); MEAN PLATELET VOLUME 8.2 FL (7.0-11.0); MONO % 11.9 % (0.0-8.0); NEUT % 59.3 % (16.0-70.0); PLATELET COUNT 288 TH/MM3 (150-450); RED BLOOD COUNT 2.32 MIL/MM3 (4.50-5.90); RED CELL DISTRIBUTION WIDTH 18.1 % (11.6-17.2); WHITE BLOOD COUNT 8.5 TH/MM3 (4.0-11.0)
[2016-11-28 05:31] LABS: BICARBONATE 21.1 MEQ/L (21.0-32.0); CALCIUM 7.7 MG/DL (8.5-10.1); CREATININE 0.37 MG/DL (0.60-1.30)
[2016-11-28] MEDS: PROPOFOL 1000 MG/100 ML IV PRN (06:10)
[2016-11-28] MEDS: oxyCODONE HCL ORAL CONC 20 MG/ML SYRINGE PO PRN (06:18)
--- NOTE | 2016-11-28 08:48 | RADRPT ---
EXAM DATE/TIME: 11/28/2016 08:34 [place] COMPARISON: CT BRAIN W/O CONTRAST, November 23, 2016, 4:23. INDICATIONS : Trauma; hydrocephalus. RADIATION DOSE: 36.14 CTDIvol (mGy) MEDICAL HISTORY : PTSD. SURGICAL HISTORY : Partial gastrectomy. ENCOUNTER: Initial ACUITY: 1 day PAIN SCALE: Non-responsive LOCATION: cranial TECHNIQUE: Multiple contiguous axial images were obtained of the head. Using automated exposure control and adj ustment of the mA and/or kV according to patient size, radiation dose was kept as low as reasonably a chievable to obtain optimal diagnostic quality images. DICOM format image data is available electro nically for review and comparison. FINDINGS: The examination demonstrates chronic subdural hematoma layering along the right posterior parietal an d occipital cortex. This appears to be undergoing expected evolution. Maximum thickness is approximat jitendra 9 mm. This measured at least 1.7 cm in thickness on prior exam. There is some mild mass effect al charlene the subpleural and posterior parietal cortex. Note is made of extra-axial hemorrhage posteriorly along the left occipital cortex as well. Again this is undergoing expected evolution. There is intraparenchymal hemorrhage involving the right temporal lobe. This has moderately decreased in density and size as would be expected. There is occipital craniotomy on the left. The ventriculostomies in good position. Ventricles are normal in size. No new areas of hemorrhage are seen. There are postsurgical changes in the sacral bone on the left. There is nondisplaced fracture through the right side a simple bone. CONCLUSION: 1. The patient's subdural hemorrhage and intraparenchymal hemorrhage all appear to be undergoing the expected evolution. There is significant decrease in the amount of cerebral edema. 2. The ventricles are normal in size. The ventriculostomy is in good position. Chuy Fitzpatrick MD on November 28, 2016 at 8:44 Board Certified Radiologist. This report was verified electronically.
[2016-11-28] MEDS: LACTULOSE SYRUP 20 GM/30 ML CUP PO SCH (09:23)
[2016-11-28] MEDS: SENNOSIDES SYRUP 8.8 MG/5 ML CUP PO SCH (09:23)
[2016-11-28] MEDS: FAMOTIDINE 20 MG TAB NG SCH ×2 (09:23→20:28)
[2016-11-28] MEDS: ENOXAPARIN SODIUM 30 MG/0.3 ML SYRINGE SQ SCH ×2 (09:24→20:28)
[2016-11-28] MEDS: SODIUM CHLORIDE 0.9% FLUSH 10 ML FLUSH IV FLUSH SCH ×2 (09:24→20:28)
[2016-11-28] MEDS: CHLORHEXIDINE 0.12% (ORAL KIT) 15 ML CUP MT SCH ×2 (09:24→20:28)
[2016-11-28] MEDS: REMOVE OLD DURAGESIC (FENTANYL) PATCH T-DERMAL SCH (11:00)
[2016-11-28] MEDS: fentaNYL 50 MCG/HR PATCH T-DERMAL SCH (11:08)
[2016-11-28] MEDS: SODIUM CHLOR 0.9% 1000 ML INJ 1,000 ML IV SCH ×2 (11:09→23:05)
[2016-11-28] MEDS: POTASSIUM CHLOR 20 MEQ PREMIX 100 ML IV PRN ×2 (11:23→13:35)
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
[2016-11-28] MEDS: cefTRIAXone INJ 2,000 MG in SODIUM CHLORIDE 0.9% INJ 100 ML IV SCH (13:34)
[2016-11-28] MEDS: LABETALOL HCL 100 MG/20 ML VIAL IV PUSH PRN (16:18)
--- NOTE | 2016-11-28 16:52 | HHI.NSPN ---
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 External ventricular drain in place Exam Results Vital Signs Date Time Temp Pulse Resp B/P (MAP) Pulse Ox O2 Delivery O2 Flow Rate FiO2 11/28/16 16:00 30 11/28/16 16:00 90 11/28/16 12:35 98 11/28/16 12:00 100.1 15 154/82 (106) Intake and Output 11/28/16 11/28/16 11/29/16 08:00 16:00 00:00 Intake Total 117 ml 200 ml Output Total 700 ml Balance -583 ml 200 ml Physical Examination Mr. Briseno appears awake, tracking with eyes Surgical incision healing well, no redness, drainage, swelling or other signs of infection Right ventriculostomy is clamped with ICP less than 10 Neurologic: According to the patient's family and nursing staff, he will occasionally stick out his tongue and move his toes to command. Cranial Nerves: Pupils 3-4 mm b/l. Tracking and response to voice, gross EOMs appear intact. Bilateral periorbital ecchymoses improving, conjunctival hemorrhages improving. Motor: minimal withdraws lower extremities to pain, no movement in the upper extremities. Reflexes: Trace throughout. Positive b/l Babinski. No ankle clonus. Cerebellar: cannot assess due to current clinical condition Neck: tracheostomy on mechanical ventilation Lab, Micro, Other Results 11/28/16 CT scan head images reviewed by the undersigned. Agree with findings as noted below: Head CT 11/28/16 0800 Signed Impressions: Service Date/Time: Monday, November 28, 2016 08:34 - CONCLUSION: 1. The patient's subdural hemorrhage and intraparenchymal hemorrhage all appear to be undergoing the expected evolution. There is significant decrease in the amount of cerebral edema. 2. The ventricles are normal in size. The ventriculostomy is in good position. Chuy Fitzpatrick MD Laboratory Tests Test 11/28/16 05:00 White Blood Count 8.5 TH/MM3 Red Blood Count 2.32 MIL/MM3 Hemoglobin 7.7 GM/DL Hematocrit 23.0 % Mean Corpuscular Volume 99.2 FL Mean Corpuscular Hemoglobin 33.3 PG Mean Corpuscular Hemoglobin Concent 33.6 % Red Cell Distribution Width 18.1 % Platelet Count 288 TH/MM3 Mean Platelet Volume 8.2 FL Neutrophils (%) (Auto) 59.3 % Lymphocytes (%) (Auto) 26.8 % Monocytes (%) (Auto) 11.9 % Eosinophils (%) (Auto) 0.9 % Basophils (%) (Auto) 1.1 % Neutrophils # (Auto) 5.1 TH/MM3 Lymphocytes # (Auto) 2.3 TH/MM3 Monocytes # (Auto) 1.0 TH/MM3 Eosinophils # (Auto) 0.1 TH/MM3 Basophils # (Auto) 0.1 TH/MM3 CBC Comment DIFF FINAL Differential Comment Blood Urea Nitrogen 15 MG/DL Creatinine 0.37 MG/DL Random Glucose 90 MG/DL Calcium Level 7.7 MG/DL Sodium Level 147 MEQ/L Potassium Level 3.4 MEQ/L Chloride Level 116 MEQ/L Carbon Dioxide Level 21.1 MEQ/L Anion Gap 10 MEQ/L Estimat Glomerular Filtration Rate 240 ML/MIN Medical Decision Making Impression and Plan Impression: Stable neurologic exam, status post suboccipital craniectomy, C1 laminectomy for evacuation posttraumatic cerebellar hematoma. 11/28/16 CT scan had stable with external ventricular drain clamped Plan: Discussed with family Discussed with nursing staff Discontinue external ventricular drain Continue to wean ventilatory support as tolerated. Tao Bledsoe MD Nov 28, 2016 16:52
[2016-11-28] MEDS: MAGNESIUM HYDROXIDE SUSP 30 ML CUP PO SCH (19:40)
[2016-11-29] VITALS (15 sets, daily range): BP systolic 134–159; BP diastolic 69–92; PULSE 74–92; RESP 10–23; TEMP 98.9–100.1; O2SAT 99–100
[2016-11-29] MEDS: hydrALAZINE HCL 20 MG/ML VIAL IV PUSH SCH ×5 (00:31→23:36)
[2016-11-29] MEDS: METOPROLOL TARTRATE 5 MG/5 ML VIAL IV PUSH SCH ×4 (03:29→22:13)
[2016-11-29] MEDS: SODIUM CHLORIDE 1 GRAM TAB PO SCH ×4 (03:29→22:13)
[2016-11-29 06:24] LABS: AUTOMATED NEUTROPHIL # 6.1 TH/MM3 (1.8-7.7); BASOPHIL # 0.1 TH/MM3 (0-0.2); BASOPHIL % 0.9 % (0.0-2.0); EOSINOPHIL # 0.1 TH/MM3 (0-0.4); EOSINOPHIL % 1.4 % (0.0-4.0); HEMATOCRIT 27.9 % (39.0-51.0); HEMOGLOBIN 9.3 GM/DL (13.0-17.0); LYMPH % 17.8 % (9.0-44.0); LYMPHOCYTE # 1.6 TH/MM3 (1.0-4.8); MEAN CELL VOLUME 100.7 FL (80.0-100.0); MEAN CORPUSCULAR HEMOGLOBIN 33.4 PG (27.0-34.0); MEAN CORPUSCULAR HGB CONC 33.2 % (32.0-36.0); MEAN PLATELET VOLUME 8.3 FL (7.0-11.0); MONOCYTE # 1.1 TH/MM3 (0-0.9); NEUT % 67.9 % (16.0-70.0); PLATELET COUNT 346 TH/MM3 (150-450); RED BLOOD COUNT 2.77 MIL/MM3 (4.50-5.90); RED CELL DISTRIBUTION WIDTH 17.4 % (11.6-17.2)
[2016-11-29 06:40] LABS: ALBUMIN 2.1 GM/DL (3.4-5.0); BICARBONATE 20.9 MEQ/L (21.0-32.0); BLOOD UREA NITROGEN 12 MG/DL (7-18); CALCIUM 8.3 MG/DL (8.5-10.1); CHLORIDE 112 MEQ/L (98-107); CREATININE 0.37 MG/DL (0.60-1.30); GLOMERULAR FILTRATION RATE 240 ML/MIN (>89); GLUCOSE,RANDOM 82 MG/DL (74-106); SODIUM (NA) 142 MEQ/L (136-145)
[2016-11-29 06:41] LABS: ALT (GPT) 46 U/L (12-78); AST (GOT) 57 U/L (15-37)
[2016-11-29 06:43] LABS: ALKALINE PHOSPHATASE 78 U/L (45-117); TOTAL BILIRUBIN ADULT 0.8 MG/DL (0.2-1.0); TOTAL PROTEIN 5.9 GM/DL (6.4-8.2)
[2016-11-29] MEDS: SODIUM CHLORIDE 0.9% FLUSH 10 ML FLUSH IV FLUSH SCH ×2 (08:31→22:14)
[2016-11-29] MEDS: CHLORHEXIDINE 0.12% (ORAL KIT) 15 ML CUP MT SCH ×2 (08:31→22:00)
[2016-11-29] MEDS: LACTULOSE SYRUP 20 GM/30 ML CUP PO SCH (08:31)
[2016-11-29] MEDS: SENNOSIDES SYRUP 8.8 MG/5 ML CUP PO SCH (08:31)
[2016-11-29] MEDS: FAMOTIDINE 20 MG TAB NG SCH ×2 (08:37→22:13)
[2016-11-29] MEDS: ENOXAPARIN SODIUM 30 MG/0.3 ML SYRINGE SQ SCH ×2 (08:37→22:13)
[2016-11-29] MEDS ORDERED: ARTIFICIAL TEARS OPTH SOLN 15 ML BTL EACH EYE PRN (10:00)
[2016-11-29] MEDS: SODIUM CHLOR 0.9% 1000 ML INJ 1,000 ML IV SCH (11:54)
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
[2016-11-29] MEDS: cefTRIAXone INJ 2,000 MG in SODIUM CHLORIDE 0.9% INJ 100 ML IV SCH (13:08)
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
--- NOTE | 2016-11-29 18:46 | HHI.NSPN ---
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 External ventricular drain discontinued 11/28/16. 11/29/16: More alert. He follows a few commands. Exam Results Vital Signs Date Time Temp Pulse Resp B/P (MAP) Pulse Ox O2 Delivery O2 Flow Rate FiO2 11/29/16 18:00 92 11/29/16 16:00 40 11/29/16 16:00 99.3 21 150/85 (106) 100 11/29/16 11:15 T-piece 8.00 Intake and Output 11/29/16 11/29/16 11/30/16 08:00 16:00 00:00 Intake Total 607 ml 935 ml Output Total 1220 ml 900 ml Balance -613 ml 35 ml Physical Examination Mr. Briseno appears awake, tracking with eyes Surgical incision healing well, no redness, drainage, swelling or other signs of infection Right ventriculostomy has been discontinued Neurologic: According to the patient's family and nursing staff, he will grasp his hands intermittently to command and move his feet. He tracks well with his eyes to the right and left on my exam. Cranial Nerves: Pupils 3-4 mm b/l. Bilateral periorbital ecchymoses improving, conjunctival hemorrhages improving. Motor: minimal withdraws lower extremities to pain, no movement in the upper extremities. Reflexes: Trace throughout. Positive b/l Babinski. No ankle clonus. Cerebellar: cannot assess due to current clinical condition Neck: tracheostomy on mechanical ventilation Lab, Micro, Other Results Laboratory Tests Test 11/29/16 05:53 White Blood Count 9.0 TH/MM3 Red Blood Count 2.77 MIL/MM3 Hemoglobin 9.3 GM/DL Hematocrit 27.9 % Mean Corpuscular Volume 100.7 FL Mean Corpuscular Hemoglobin 33.4 PG Mean Corpuscular Hemoglobin Concent 33.2 % Red Cell Distribution Width 17.4 % Platelet Count 346 TH/MM3 Mean Platelet Volume 8.3 FL Neutrophils (%) (Auto) 67.9 % Lymphocytes (%) (Auto) 17.8 % Monocytes (%) (Auto) 12.0 % Eosinophils (%) (Auto) 1.4 % Basophils (%) (Auto) 0.9 % Neutrophils # (Auto) 6.1 TH/MM3 Lymphocytes # (Auto) 1.6 TH/MM3 Monocytes # (Auto) 1.1 TH/MM3 Eosinophils # (Auto) 0.1 TH/MM3 Basophils # (Auto) 0.1 TH/MM3 CBC Comment DIFF FINAL Differential Comment Blood Urea Nitrogen 12 MG/DL Creatinine 0.37 MG/DL Random Glucose 82 MG/DL Total Protein 5.9 GM/DL Albumin 2.1 GM/DL Calcium Level 8.3 MG/DL Alkaline Phosphatase 78 U/L Aspartate Amino Transf (AST/SGOT) 57 U/L Alanine Aminotransferase (ALT/SGPT) 46 U/L Total Bilirubin 0.8 MG/DL Sodium Level 142 MEQ/L Potassium Level 4.1 MEQ/L Chloride Level 112 MEQ/L Carbon Dioxide Level 20.9 MEQ/L Anion Gap 9 MEQ/L Estimat Glomerular Filtration Rate 240 ML/MIN Medical Decision Making Impression and Plan Impression: Stable neurologic exam, status post suboccipital craniectomy, C1 laminectomy for evacuation posttraumatic cerebellar hematoma. External ventricular drain discontinued 11/28/16. 11/28/16 CT scan had stable with external ventricular drain clamped Plan: Discussed with family in the room today again Discussed with nursing staff Continue ventilator wean Continue to wean ventilatory support as tolerated. Tao Bledsoe MD Nov 29, 2016 18:46
[2016-11-29] MEDS: MAGNESIUM HYDROXIDE SUSP 30 ML CUP PO SCH (22:13)
[2016-11-29] MEDS: QUEtiapine FUMARATE 100 MG TAB PO SCH (22:13)
[2016-11-29 23:45] LABS: AUTOMATED NEUTROPHIL # 5.6 TH/MM3 (1.8-7.7); BASOPHIL % 0.6 % (0.0-2.0); EOSINOPHIL # 0.1 TH/MM3 (0-0.4); EOSINOPHIL % 1.3 % (0.0-4.0); HEMOGLOBIN 8.9 GM/DL (13.0-17.0); LYMPH % 14.9 % (9.0-44.0); LYMPHOCYTE # 1.2 TH/MM3 (1.0-4.8); MEAN CELL VOLUME 99.2 FL (80.0-100.0); MEAN CORPUSCULAR HEMOGLOBIN 32.7 PG (27.0-34.0); MEAN PLATELET VOLUME 7.5 FL (7.0-11.0); MONO % 12.9 % (0.0-8.0); NEUT % 70.3 % (16.0-70.0); PLATELET COUNT 361 TH/MM3 (150-450); RED BLOOD COUNT 2.72 MIL/MM3 (4.50-5.90); RED CELL DISTRIBUTION WIDTH 17.5 % (11.6-17.2); WHITE BLOOD COUNT 7.9 TH/MM3 (4.0-11.0)
[2016-11-30] VITALS (15 sets, daily range): BP systolic 126–146; BP diastolic 74–89; PULSE 74–99; RESP 18–29; TEMP 98.4–99.4; O2SAT 95–100
[2016-11-30] MEDS ORDERED: SODIUM CHLOR 0.9% 1000 ML INJ 1,000 ML IV ONE (00:15)
[2016-11-30] MEDS: SODIUM CHLOR 0.9% 1000 ML INJ 1,000 ML IV SCH ×3 (01:26→20:29)
[2016-11-30] MEDS: METOPROLOL TARTRATE 5 MG/5 ML VIAL IV PUSH SCH ×4 (02:00→20:28)
[2016-11-30] MEDS: SODIUM CHLORIDE 1 GRAM TAB PO SCH ×4 (05:16→20:28)
--- NOTE | 2016-11-30 05:46 | RADRPT ---
EXAM DATE/TIME: 11/30/2016 04:37 [facility] COMPARISON: CHEST SINGLE AP, November 27, 2016, 10:14. INDICATIONS : Respiratory failure s/p Trauma with brain injury. MEDICAL HISTORY : None. SURGICAL HISTORY : None. ENCOUNTER: Subsequent ACUITY: 1 week PAIN SCORE: Non-responsive. LOCATION: Bilateral chest FINDINGS: Tracheostomy is stable in good position. There is been removal of nasogastric tube. There is persiste nt mild hazy bilateral pleuroparenchymal opacity. Cardiac contours are unchanged. CONCLUSION: Nasogastric tube removed. Otherwise stable chest Fabien Leon MD on November 30, 2016 at 5:43 Board Certified Radiologist. This report was verified electronically.
[2016-11-30] MEDS: hydrALAZINE HCL 20 MG/ML VIAL IV PUSH SCH ×4 (06:13→23:33)
[2016-11-30] MEDS: oxyCODONE HCL ORAL CONC 20 MG/ML SYRINGE PO PRN (06:14)
[2016-11-30 06:21] LABS: AUTOMATED NEUTROPHIL # 4.7 TH/MM3 (1.8-7.7); BASOPHIL # 0.1 TH/MM3 (0-0.2); BASOPHIL % 0.9 % (0.0-2.0); EOSINOPHIL # 0.1 TH/MM3 (0-0.4); EOSINOPHIL % 1.5 % (0.0-4.0); HEMATOCRIT 26.4 % (39.0-51.0); HEMOGLOBIN 8.7 GM/DL (13.0-17.0); LYMPH % 19.4 % (9.0-44.0); LYMPHOCYTE # 1.4 TH/MM3 (1.0-4.8); MEAN PLATELET VOLUME 7.9 FL (7.0-11.0); MONO % 12.3 % (0.0-8.0); MONOCYTE # 0.9 TH/MM3 (0-0.9); NEUT % 65.9 % (16.0-70.0); PLATELET COUNT 293 TH/MM3 (150-450); RED BLOOD COUNT 2.64 MIL/MM3 (4.50-5.90); RED CELL DISTRIBUTION WIDTH 17.4 % (11.6-17.2); WHITE BLOOD COUNT 7.1 TH/MM3 (4.0-11.0)
[2016-11-30 06:45] LABS: ALBUMIN 1.9 GM/DL (3.4-5.0); ALKALINE PHOSPHATASE 67 U/L (45-117); ALT (GPT) 41 U/L (12-78); AST (GOT) 44 U/L (15-37); BICARBONATE 22.2 MEQ/L (21.0-32.0); BLOOD UREA NITROGEN 10 MG/DL (7-18); CALCIUM 7.5 MG/DL (8.5-10.1); CHLORIDE 110 MEQ/L (98-107); CREATININE 0.27 MG/DL (0.60-1.30); GLOMERULAR FILTRATION RATE 345 ML/MIN (>89); GLUCOSE,RANDOM 103 MG/DL (74-106); SODIUM (NA) 140 MEQ/L (136-145); TOTAL BILIRUBIN ADULT 0.7 MG/DL (0.2-1.0); TOTAL PROTEIN 5.2 GM/DL (6.4-8.2)
[2016-11-30] MEDS: CHLORHEXIDINE 0.12% (ORAL KIT) 15 ML CUP MT SCH ×2 (08:00→20:28)
--- NOTE | 2016-11-30 08:14 | HHI.PR ---
Neuropsych Behavior Behavior: Mild: Impulsive/Agitated Cognitive Cognitive: Severe: Cognitive, Attention/Concentration, Confused/Orientation, Insight/Awareness, Judgement/Problem-Solving, Memory Psychosocial Psychosocial: Intact: Psychosocial, Family/Other Adjustment, Realistic Expectation, Unable to Asses: Self-Esteem/Confidence Progress Notes/Response to Tx Contents of Sessions: Adjustment, Level of Consciousness Time with Patient: 15 minutes Premorbid psychological status Premorbid Cognitive, Emotional and Behavioral Status: Stable. The patient is originally from [facility] and has a solid work history prior to this injury. The patient has no psychiatric difficulties, as described above. Substance abuse history is unremarkable. Behavioral Reactions of Patient and Family/Support System: Stable. The patient s family is experiencing ongoing issues of adjustment given the nature of the injury, and this aspect of recovery will require ongoing monitoring. Emotional/Behavioral Status of Patient and Family/Support System: Stable. Pertinent issues, if appropriate to this patients clinical care, are described in detail above. Maximizing acute care outcome It is recommended that the patient be monitored for emergent behavioral impulsivity as the medical condition evolves. This patients neuropathological challenges may limit their rehabilitation potential going forward, and these challenges will require specialized therapeutic skills to maximize outcome. Additionally, the patients family is experiencing ongoing issues of adjustment given the traumatic nature of the injury, and they will need ongoing psychological assistance. Anticipated Problems Ongoing areas of concern will include behavioral impulsivity, lack of insight and judgment, which is expected to improve with time and treatment. Presently , the patient remains intubated and sedated. Treatment Plan This clinician will continue to follow with you throughout the course of this patients acute care treatment, and I will be available to meet with the patient s family/support system to facilitate their understanding and the ongoing care of their family member. The goals of neuropsychological intervention shall be both educational and supportive to the family/support system as is deemed clinically appropriate. [facility] Level: IV:Confused/Agitated-maximal assist Impression This is a 61 year old man s/p TBI 2T probable fall. Diagnosis: (1) Major neurocognitive disorder as late effect of traumatic brain injury without behavioral disturbance Status: Acute Progress Note Narrative Ongoing follow-up of patient seen during daily trauma rounds. This is day 17 post injury. Neurobehaviorally, the patient is awake, eyes opening and he is tracking. Over the weekend, the patient experienced restlessness difficulties at night, and Seroquel 100 HS was added. This neurobehavioral change is a positive finding, demonstrating neurological recovery. He is now [place] IV. I will continue to follow. Johan Pierson PhD Nov 30, 2016 8:14 am
[2016-11-30] MEDS: LACTULOSE SYRUP 20 GM/30 ML CUP PO SCH (09:00)
[2016-11-30] MEDS: SODIUM CHLORIDE 0.9% FLUSH 10 ML FLUSH IV FLUSH SCH ×2 (09:00→20:28)
[2016-11-30] MEDS: FAMOTIDINE 20 MG TAB NG SCH ×2 (09:00→20:28)
[2016-11-30] MEDS: SENNOSIDES SYRUP 8.8 MG/5 ML CUP PO SCH (09:00)
--- NOTE | 2016-11-30 09:15 | HHI.NSPN ---
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 A 1.7 cm right temporal parietal subdural hematoma. Contusions are noted in the left cerebellar hemisphere up to 5 cm in size with compression of the fourth ventricle and a contusion is noted in the right temporal lobe. Small contusion cortically in the lower left parietal lobe. He underwent emergent suboccipital decompressive craniectomy, C1 laminectomy for evacuation of cerebellar hematoma, with placement of ventriculostomy drain on 11/13/1611/14: intubated, and very well sedated. sedation lowered pt restless. EVD draining well. ICPs wnl overnight. 11/15: off propofol, remains on fentanyl drip. Moving spontaneously. ICPs stable overnight, EVD draining well. 11/16: off sedation opens eyes, moving all four extremities but not following commands. EVD draining well, ICPs remains wnl. 11/17: remains intubated and sedated. ICPs stable, EVD draining well. f/u CT Brain yesterday completed and reviewed by Dr. Grimm. 11/18: sedated on diprivan, slightly opens eyes to voice. withdraws x 4 extremities but does not follow commands. 11/19: when sedation lowered, opens eyes and withdraws x 4, placed back on sedation for blood pressure control. 11/20: intubated, sedated. EVD draning well, ICPs as high as 10 overnight. nursing reports ?weaker left side today. 11/23: 3% NS restarted wednesday afternoon with improved ICPs. stable over the weekend. repeat CT Head over the weekend completed. 11/24: nursing reports appears to track to voice, moving all four extremities ? weaker on the left, ICPs stable overnight, central line discontinued. 11/25: no acute events overnight, ICPs stable 11/26: ICPs remains stable following raising of ventriculostomy drain, appearing more alert today, tracking 11/27: EVD clamped most of yesterday, then patient placed on CPAP with ICPs escalating to the mid 20's. Patient placed back on vent, ICPs improved. Then with intermittent elevation overnight, EVD was reopened with drainage of CSF and improved ICPs. Currently reclamped. 11/30: ventriculostomy drain removed, clinically remains awake, alert, following few simple commands. (Kathy Moctezuma) Labs, Micro, & Vital Signs Results Date Time Temp Pulse Resp B/P (MAP) Pulse Ox O2 Delivery O2 Flow Rate FiO2 11/30/16 06:00 82 11/30/16 04:00 82 11/30/16 04:00 99.1 82 24 145/81 (102) 98 11/30/16 04:00 40 11/30/16 02:00 80 11/30/16 00:06 99 T-piece 6.00 40 11/30/16 00:00 40 11/30/16 00:00 99.4 94 24 126/74 (91) 100 11/30/16 00:00 94 11/29/16 22:00 90 11/29/16 20:00 99.1 90 23 148/86 (106) 99 11/29/16 20:00 40 11/29/16 20:00 90 11/29/16 18:00 92 11/29/16 16:00 40 11/29/16 16:00 76 11/29/16 16:00 99.3 76 21 150/85 (106) 100 11/29/16 14:00 76 11/29/16 12:00 92 11/29/16 12:00 40 11/29/16 12:00 98.9 90 19 159/87 (111) 99 11/29/16 11:25 40 11/29/16 11:15 99 T-piece 8.00 40 11/29/16 10:00 80 11/29/16 09:44 100 30 Constitutional Vital Signs Date Time Temp Pulse Resp B/P (MAP) Pulse Ox O2 Delivery O2 Flow Rate FiO2 11/30/16 06:00 82 11/30/16 04:00 82 11/30/16 04:00 99.1 82 24 145/81 (102) 98 11/30/16 04:00 40 11/30/16 02:00 80 11/30/16 00:06 99 T-piece 6.00 40 11/30/16 00:00 40 11/30/16 00:00 99.4 94 24 126/74 (91) 100 11/30/16 00:00 94 11/29/16 22:00 90 11/29/16 20:00 99.1 90 23 148/86 (106) 99 11/29/16 20:00 40 11/29/16 20:00 90 11/29/16 18:00 92 11/29/16 16:00 40 11/29/16 16:00 76 11/29/16 16:00 99.3 76 21 150/85 (106) 100 11/29/16 14:00 76 11/29/16 12:00 92 11/29/16 12:00 40 11/29/16 12:00 98.9 90 19 159/87 (111) 99 11/29/16 11:25 40 11/29/16 11:15 99 T-piece 8.00 40 11/29/16 10:00 80 11/29/16 09:44 100 30 (Kathy Moctezuma) Review of Systems ROS Limitations: Clinical Condition (Kathy Moctezuma) Physical Exam Mr. Briseno awake, tracking. Intermittently smiles. Intermittently following few simple commands. Right ventriculostomy site dry with steri-strips in place Motor: moving legs intermittently, squeezed with right hand to commands Cranial Nerves: Pupils 3-4 mm b/l. Reflexes: Trace throughout. Positive b/l Babinski. No ankle clonus. Cerebellar: cannot assess due to current clinical condition Neck: tracheostomy on mechanical ventilation suboccipital incision sutures has been removed, healing well. clean, dry dressing in place. (Kathy Moctezuma) Medications Current Medications Current Medications Medications (Trade) Dose Ordered Sig/Femi Route PRN Reason Start Time Stop Time Status Last Admin Dose Admin Sodium Chloride (NS Flush) 2 ml UNSCH PRN IV FLUSH FLUSH AFTER USING IV ACCESS 11/13/16 15:00 Sodium Chloride (NS Flush) 2 ml BID IV FLUSH 11/13/16 21:00 11/29/16 22:14 Ondansetron HCl (Zofran Inj) 4 mg Q6H PRN IV NAUSEA OR VOMITING 11/13/16 15:00 11/27/16 02:15 Naloxone HCl (Narcan Inj) 0.4 mg UNSCH PRN IV PUSH SEE LABEL COMMENTS 11/13/16 15:00 Bisacodyl (Dulcolax Supp) 10 mg DAILY PRN RECTAL CONSTIPATION 11/13/16 15:00 Calcium Gluconate (Calcium Gluconate Inj) 1 gm UNSCH PRN IV SEE LABEL COMMENTS 11/13/16 15:00 Potassium Chloride 100 ml @ 50 mls/hr UNSCH PRN IV POTASSIUM LESS THAN 4 11/13/16 15:00 11/27/16 03:45 Magnesium Sulfate 4 gm/Sodium Chloride 108 ml @ 108 mls/hr UNSCH PRN IV MAGNESIUM LESS THAN 2 11/13/16 15:00 Propofol 100 ml @ 1.65 mls/hr TITRATE PRN IV SEDATION 11/13/16 20:15 11/28/16 06:10 Chlorhexidine Gluconate (Peridex 0.12% Liq) 15 ml BID@08,20 MT 11/14/16 08:00 11/29/16 22:00 Magnesium Oxide (Mag-Ox) 800 mg UNSCH PRN PO For Magnesium 1.2 - 1.6 mg/dL 11/14/16 02:30 Magnesium Sulfate 4 gm/Sodium Chloride 100 ml @ 50 mls/hr UNSCH PRN IV For Magnesium 0.9 - 1.1 mg/dL 11/14/16 02:30 Magnesium Sulfate 2 gm/Sodium Chloride 100 ml @ 50 mls/hr UNSCH PRN IV For Magnesium 1.2 - 1.6 mg/dL 11/14/16 02:30 Potassium Chloride 100 ml @ 50 mls/hr Q2H PRN IV For Potassium 2.8 - 3.2 mEq/L 11/14/16 02:30 11/17/16 10:35 Potassium Chloride 100 ml @ 50 mls/hr Q2H PRN IV For Potassium 3.3 - 3.5 mEq/L 11/14/16 02:30 11/28/16 13:35 Potassium Chloride 100 ml @ 50 mls/hr Q2H PRN IV For Potassium 2.8 - 3.2 mEq/L 11/14/16 02:30 Potassium Chloride 100 ml @ 25 mls/hr UNSCH PRN IV For Potassium 3.3 - 3.5 mEq/L 11/14/16 02:30 11/18/16 04:50 Potassium Phosphate (K-Phos) 2,000 mg Q4H PRN PO For Phosphorus < 2.5 mg/dL 11/14/16 02:30 Potassium Phosphate (K-Phos) 2,000 mg UNSCH PRN PO/TUBE SEE LABEL COMMENTS 11/14/16 02:30 Potassium Phosphate 30 mmol/ Sodium Chloride 260 ml @ 42 mls/hr UNSCH PRN IV SEE LABEL COMMENTS 11/14/16 02:30 Sodium Phosphate 30 mmol/Sodium Chloride 250 ml @ 42 mls/hr UNSCH PRN IV For Phosphorus < 2.5 mg/dL 11/14/16 02:30 Albuterol/ Ipratropium (Duoneb Neb) 1 ampule Q2HR NEB PRN INH WHEEZING 11/14/16 02:30 Magnesium Hydroxide (Milk Of Magnesia Liq) 30 ml HS PO 11/15/16 21:00 11/29/16 22:13 Lactulose (Lactulose Liq) 30 ml DAILY PO 11/15/16 09:00 11/28/16 09:23 Ceftriaxone Sodium 2000 mg/ Sodium Chloride 100 ml @ 200 mls/hr Q24H IV 11/17/16 13:00 11/29/16 13:08 Enoxaparin Sodium (Lovenox Inj) 30 mg Q12H SQ 11/20/16 21:00 Future hold 11/29/16 22:13 Hydralazine HCl (Apresoline Inj) 10 mg Q6HR IV PUSH 11/22/16 11:00 11/30/16 06:13 Metoprolol Tartrate (Lopressor Inj) 5 mg Q6H IV PUSH 11/22/16 14:00 11/29/16 22:13 Fentanyl (Duragesic 50 Mcg Patch.72 Hr) 1 patch Q3D T-DERMAL 11/22/16 11:00 11/28/16 11:08 Miscellaneous Information 1 Q3D T-DERMAL 11/25/16 11:00 11/28/16 11:00 Labetalol HCl (Trandate Inj) 10 mg Q4H PRN IV PUSH SBP>160, DBP>90 11/22/16 23:45 11/28/16 16:18 Sodium Chloride (Sodium Chloride) 2 gm Q6H PO 11/23/16 20:00 11/30/16 05:16 Acetaminophen (Tylenol 650 Mg/ 20 ml Liq) 650 mg Q4H PRN PO Temp > 101 11/26/16 07:45 11/28/16 03:38 Sennosides (Senna Liq) 8.8 mg DAILY PO 11/26/16 09:00 11/28/16 09:23 Oxycodone HCl (Roxicodone Intensol Liq) 5 mg Q6H PRN PO pain >3 11/26/16 09:00 11/30/16 06:14 Famotidine (Pepcid) 20 mg BID NG 11/26/16 09:00 11/29/16 22:13 Sodium Chloride 1,000 ml @ 100 mls/hr Q10H IV 11/26/16 11:00 11/30/16 01:26 Alprazolam (Xanax) 0.25 mg Q6H PRN PO ANXIETY 11/27/16 15:00 11/28/16 01:39 Quetiapine Fumarate (SEROquel) 100 mg HS PO 11/29/16 21:00 11/29/16 22:13 Artificial Tears (Tears Naturale Opth Soln) 1 drop Q4H PRN EACH EYE dryness 11/29/16 10:00 (Kathy Moctezuma) Medical Decision Making MDM Remarks Middle age 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 A 1.7 cm right temporal parietal subdural hematoma and contusions. Left cerebellar contusions with compression of the fourth ventricle he underwent emergent suboccipital decompressive craniectomy, C1 laminectomy for evacuation of cerebellar hematoma, with placement of ventriculostomy drain on 11/13/16, ventriculostomy drain removed 11/28/16 neuro exam improving (Kathy Moctezuma) Plan Plan Remarks neuro exam improving, cont vent weaning cont therapy and rehab efforts sign off, call prn (Kathy Moctezuma) Attending Statement The exam, history, and the medical decision-making described in the above note were completed with the assistance of the mid-level provider. I reviewed and agree with the findings presented. I attest that I had a [id number] encounter with the patient on the same day, and personally performed and documented my assessment and findings in the medical record. (Stu Grimm MD) Kathy Moctezuma Nov 30, 2016 09:15 Stu Grimm MD Dec 02, 2016 12:30
[2016-11-30] MEDS ORDERED: GELATIN 12 MM/7 MM FOAM ONE (10:03)
[2016-11-30] MEDS: ENOXAPARIN SODIUM 30 MG/0.3 ML SYRINGE SQ SCH (10:25)
[2016-11-30] MEDS: cefTRIAXone INJ 2,000 MG in SODIUM CHLORIDE 0.9% INJ 100 ML IV SCH (12:10)
[2016-11-30] MEDS ORDERED: LIDOCAINE HCL 1% 50 ML VIAL ONE (15:37)
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
[2016-11-30] MEDS: QUEtiapine FUMARATE 100 MG TAB PO SCH (20:28)
[2016-11-30] MEDS: MAGNESIUM HYDROXIDE SUSP 30 ML CUP PO SCH (20:28)
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
[2016-12-01] VITALS (14 sets, daily range): BP systolic 143–169; BP diastolic 83–95; PULSE 72–104; RESP 24–30; TEMP 98.2–98.7; O2SAT 96–100
[2016-12-01] MEDS: ARTIFICIAL TEARS OPTH SOLN 15 ML BTL EACH EYE SCH ×4 (01:18→21:10)
[2016-12-01] MEDS: METOPROLOL TARTRATE 5 MG/5 ML VIAL IV PUSH SCH ×4 (01:43→20:03)
[2016-12-01] MEDS: SODIUM CHLORIDE 1 GRAM TAB PO SCH ×4 (03:03→20:03)
[2016-12-01] MEDS: SODIUM CHLOR 0.9% 1000 ML INJ 1,000 ML IV SCH (03:09)
[2016-12-01 05:06] LABS: AUTOMATED NEUTROPHIL # 4.3 TH/MM3 (1.8-7.7); BASOPHIL # 0.1 TH/MM3 (0-0.2); BASOPHIL % 0.7 % (0.0-2.0); EOSINOPHIL # 0.1 TH/MM3 (0-0.4); EOSINOPHIL % 1.2 % (0.0-4.0); HEMATOCRIT 26.5 % (39.0-51.0); HEMOGLOBIN 8.7 GM/DL (13.0-17.0); LYMPHOCYTE # 1.6 TH/MM3 (1.0-4.8); MEAN CELL VOLUME 99.4 FL (80.0-100.0); MEAN CORPUSCULAR HEMOGLOBIN 32.7 PG (27.0-34.0); MEAN CORPUSCULAR HGB CONC 32.9 % (32.0-36.0); MEAN PLATELET VOLUME 8.2 FL (7.0-11.0); MONO % 13.2 % (0.0-8.0); MONOCYTE # 0.9 TH/MM3 (0-0.9); NEUT % 61.9 % (16.0-70.0); PLATELET COUNT 324 TH/MM3 (150-450); RED BLOOD COUNT 2.67 MIL/MM3 (4.50-5.90)
[2016-12-01 05:34] LABS: BICARBONATE 24.8 MEQ/L (21.0-32.0); BLOOD UREA NITROGEN 9 MG/DL (7-18); CALCIUM 8.1 MG/DL (8.5-10.1); CHLORIDE 109 MEQ/L (98-107); GLOMERULAR FILTRATION RATE 306 ML/MIN (>89); GLUCOSE,RANDOM 102 MG/DL (74-106); SODIUM (NA) 141 MEQ/L (136-145)
[2016-12-01 05:39] LABS: ALKALINE PHOSPHATASE 87 U/L (45-117); ALT (GPT) 41 U/L (12-78); AST (GOT) 45 U/L (15-37); TOTAL BILIRUBIN ADULT 0.6 MG/DL (0.2-1.0); TOTAL PROTEIN 5.3 GM/DL (6.4-8.2)
--- NOTE | 2016-12-01 05:55 | RADRPT ---
EXAM DATE/TIME: 12/01/2016 05:04 [facility] COMPARISON: CHEST SINGLE AP, November 27, 2016, 10:14. INDICATIONS : Short of breath. MEDICAL HISTORY : None. SURGICAL HISTORY : None. ENCOUNTER: Subsequent ACUITY: 1 week PAIN SCORE: Non-responsive. LOCATION: Bilateral chest FINDINGS: Tracheostomy is stable. There is been interval removal of nasogastric tube. Hazy bilateral pleuropare nchymal opacities have increased. Cardiac contour is grossly stable. CONCLUSION: Some interval worsening in aeration. Fabien Leon MD on December 01, 2016 at 5:53 Board Certified Radiologist. This report was verified electronically.
[2016-12-01] MEDS: hydrALAZINE HCL 20 MG/ML VIAL IV PUSH SCH ×4 (06:02→23:57)
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
[2016-12-01] MEDS ORDERED: POTASSIUM CHLORIDE 20 MEQ PWD PACKET PEG ONE (07:30)
[2016-12-01] MEDS ORDERED: MINERAL OIL LIQUID 30 ML CUP PO ONE (08:00)
[2016-12-01] MEDS ORDERED: DOCUSATE SODIUM 100 MG/10 ML UDC PO ONE (08:00)
[2016-12-01] MEDS: CHLORHEXIDINE 0.12% (ORAL KIT) 15 ML CUP MT SCH ×2 (08:00→20:00)
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
[2016-12-01] MEDS: SENNOSIDES SYRUP 8.8 MG/5 ML CUP PO SCH (09:58)
[2016-12-01] MEDS: LACTULOSE SYRUP 20 GM/30 ML CUP PO SCH (09:59)
[2016-12-01] MEDS: SODIUM CHLORIDE 0.9% FLUSH 10 ML FLUSH IV FLUSH SCH ×2 (10:00→20:03)
[2016-12-01] MEDS: FAMOTIDINE 20 MG TAB NG SCH ×2 (10:00→20:03)
[2016-12-01] MEDS: REMOVE OLD DURAGESIC (FENTANYL) PATCH T-DERMAL SCH (10:14)
[2016-12-01] MEDS: fentaNYL 50 MCG/HR PATCH T-DERMAL SCH (10:14)
--- NOTE | 2016-12-01 10:49 | RADRPT ---
EXAM DATE/TIME: 12/01/2016 08:13 [facility] COMPARISON: No previous studies available for comparison. INDICATIONS : Abdominal distention. MEDICAL HISTORY : PTSD. SURGICAL HISTORY : Partial gastrectomy. ENCOUNTER: Initial ACUITY: 1 day PAIN SCORE: 0/10 LOCATION: Bilateral abdomen FINDINGS: Supine view of the abdomen was performed. The abdominal bowel gas pattern is normal. No abnormal ma sses, calcifications, or organomegaly is seen. The osseous structures are unremarkable. There are morales rgical clips in the right upper quadrant compatible with prior cholecystectomy. Jejunostomy tube is p resent CONCLUSION: 1. No evidence of obstruction. Kam Menezes MD on December 01, 2016 at 10:47 Board Certified Radiologist. This report was verified electronically.
[2016-12-01] MEDS: VALPROIC ACID SYRUP 250 MG/5 ML UDC PO SCH ×2 (11:30→20:02)
--- NOTE | 2016-12-01 13:37 | HHI.CCPN ---
Subjective Brief History [place]: This is a 61-year-old male found in his apartment face down with massive injuries to the head brought in as priority 1 trauma alert and resuscitated. He is taken immediately to CT scan after resuscitation. He is found to have massive intracranial injuries including skull fracture, bleeding in the right cerebellar hemisphere, compression of the flow of the cerebrospinal fluid, hemorrhages in the cerebral area and some air. He also has a large subdural hematoma on the right. The patient is taken immediately to the operating room and he will come to the ICU after the decompression. Discussed this with Dr. Grimm. 24 Hour Review/Hospital Course 11/14/16 Patient underwent craniotomy and evacuation of the right posterior fossa hematoma In addition patient has a tear in the transfer sinus which is now clotted off Patient is now any ICU and remains on neuroprotective measures including Propofol/fentanyl 3% saline with sodium around 155 mEq per liter [facility] Maikel Coma Scale remains 3-4 ICP 12 mmHg and controllable Centra perfusion pressure has been adequate without any administration of vasopressors based on measurements of mean arterial pressure 11/15/16 Patient is neurologically somewhat improved and Maikel Coma Scale is about 6-7 Patient doesn't follow commands however he opens his eyes and moves all 4 extremities spontaneously This is a significant improvement in last 24 hours Remains off propofol Sodium adequate and with normal ICP hypertonic saline has been discontinued as well Repeat CT scan of the brain tomorrow 11/16/16 Patient with severe brain injuries on repeat CT scan he is residual subdural and subarachnoid hemorrhage intraparenchymal hemorrhages and brain contusions Moves all 4 extremities when now sedation indication Maikel Coma Scale around 5 Patient remains on neuroprotective measures including propofol and fentanyl ICP 8-12 mmHg 11/17/16 Neurologic status unchanged On sedation vacation patient is moving all 4 extremities but doesn't open eyes or tracs ICP remains low around 8-12 mmHg Patient remains on small dose propofol and fentanyl for pain Will start on antihypertensive some further decrease the propofol 11/18/16 sedation holiday-open eyes,moving all 4 extremities ICP/CPP-wnl propofol/fentanyl 11/19/16 open eyes,moving all 4 extremities on sedation holiday ICP/CPP-controlled tolerating tube feeds started propranolol 11/20/2016 PTD: 7 Weaning sedation slowly. Opens eyes. Pt moves all extremities, but not yet to command. ICP = 1-7, He had an episode overnight were ICP increased to 16 with turning for a linen change. Discussed with daughter at bedside. 11/21/16 No change in neurologic status On sedation vacation patient moves all 4 extremities but doesn't follow any commands and does not track ICP remains low Withdrawal of hypertonic saline resulted in increase it of intracranial pressure so this has been restarted Neuroprotective measures including Propofol/fentanyl Hypertonic saline at 3% 20 cc an hour At this point there is no where to go as far as decreasing any of these and we' ll just leave everything is a distal tomorrow and then try to decrease hypertonic saline again 11/22/16 No change in neurologic status Place patient on sedation vacation from propofol and he is opening eyes but doesn't track does not follow any commands ICP remains low and patient has responding central perfusion pressure which is adequate in the range of mean arterial pressure Hypertensive and therefore placed on Lopressor and hydralazine This patient has been in the unit for 9 days and at this point decision-making comes to tracheostomy and PEG and I discussed this with his daughter Depending on patient's progress in next 24-48 hrs, patient will likely be scheduled for tracheostomy 11/23/2016 PTD: 10 Patient remains sedated and mechanically ventilated. Opens eyes. Spoke with daughter at bedside to prepare for trach placement either today or tomorrow. Additionally patient will need PEG placement. 11/24/16 With sedation vacation patient is moving all 4 extremities opening eyes and according to the nurse tracking which is a great improvement Maikel Coma Scale on sedation medications about 7 or patient doesn't follow commands Level of consciousness does not allow extubation therefore tracheostomy has been performed at the bedside today Bilateral good breath sounds and good inspiratory effort I'll try to wean patient off the ventilator in next few days the tracheostomy is in place Abdomen is soft with active bowel sounds and patient is scheduled to have PEG today Medical critical care help is greatly appreciated and adjustment of antibiotics appropriate 11/25/16 No change in current status Patient is opening eyes moving all 4 extremities and apparently tracking occasionally Underwent successful tracheostomy and is gone be weaned off the ventilator if the next few days PEG could not be performed due to 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 and therefore I'll take the patient today for open jejunostomy placement Abdomen soft Bilateral breath sounds slightly diminished over the bases Hemodynamically remains stable 11/26 s/p J tube and tracheostomy opening eyes at times HD stable ICP stable 11/27 episode of vomiting yesterday EVD unclamped after ICP increase after rounds NS clamped again ICP <20 eyes open 11/29 Patient's eyes open, he is clearly tracking, he's tolerating CPAP, his abdomen is soft no episodes of vomiting had BMs, the EVD has been removed by neurosurgery 11/30/16 Patient is doing better he is opening eyes and seems to be communicating Moving both legs and both arms but not following any commands Remains on respirator and as of tomorrow we'll start CPAP trials to hopefully separate the patient from the ventilator and next few days Abdomen is soft feeding tube is working well There was some drainage from the feeding tube incision site in the midline and Dr. Rachel varghese as removed some of the stitches Now there is bleeding from the edge of the skin and I controlled it with several Prolene stitches and washed out and sterilely approximated the incision 12/01/16 H and more awake and alert trying to communicate and actually succeeding Now patient is following commands and moving all 4 extremities and is more awake than yesterday Considering the patient has tracheostomy has been liberated from the ventilator and is currently in T piece to be changed to trach collar Secretions and minimal Abdomen is soft feeding jejunostomy is in place and can be used for feedings. Minimal drainage from the incision which is serous and no infections noted Hemoglobin remains stable Provided patient states an trach collar he can be transferred to rehabilitation as soon as a bed is available or to the floor close the nursing station Objective Vital Signs Date Time Temp Pulse Resp B/P (MAP) Pulse Ox O2 Delivery O2 Flow Rate FiO2 12/01/16 12:05 28 12/01/16 08:20 100 T-piece 5.00 12/01/16 06:00 84 12/01/16 04:00 98.7 28 161/88 (112) Intake and Output 12/01/16 12/01/16 12/02/16 08:00 16:00 00:00 Intake Total 1860 ml Output Total 800 ml Balance 1060 ml Result Diagram: 12/01/1642612/01/16426 Imaging Last 24 hours Impressions Chest X-Ray 12/01/16 0600 Signed Impressions: Service Date/Time: Thursday, December 01, 2016 05:04 - CONCLUSION: Some interval worsening in aeration. Fabien Leon MD Abdomen X-Ray 12/01/16 0000 Signed Impressions: Service Date/Time: Thursday, December 01, 2016 08:13 - CONCLUSION: 1. No evidence of obstruction. Kam Menezes MD Exam ADMINISTRATIVE DIETITIAN H and more awake and alert trying to communicate and actually succeeding Now patient is following commands and moving all 4 extremities and is more awake than yesterday Hemodynamic/Cardiac Hemodynamically patient stable Pulmonary/Respiratory Considering the patient has tracheostomy has been liberated from the ventilator and is currently in T piece to be changed to trach collar Secretions and minimal Abdomen/GI Nutrition Abdomen is soft feeding jejunostomy is in place and can be used for feedings. Minimal drainage from the incision which is serous and no infections noted Hemoglobin remains stable Provided patient states an trach collar he can be transferred to rehabilitation as soon as a bed is available or to the floor close the nursing station Vascular Central Line Catheter Date of Insertion: Nov 13, 2016 Line: Central Venous Catheter Side: Right Location: Internal Assessment and Plan Assessment: (1) Skull fractures ICD Code: S02.91XA - Unspecified fracture of skull, initial encounter for closed fracture Status: Acute (2) Intracranial hemorrhage ICD Code: I62.9 - Nontraumatic intracranial hemorrhage, unspecified Status: Acute (3) Major neurocognitive disorder as late effect of traumatic brain injury without behavioral disturbance ICD Code: S06.9X9S - Unspecified intracranial injury with loss of consciousness of unspecified duration, sequela; F02.80 - Dementia in other diseases classified elsewhere without behavioral disturbance Status: Acute (4) Traumatic brain injury ICD Code: S06.9X9A - Unspecified intracranial injury with loss of consciousness of unspecified duration, initial encounter Status: Acute Plan [place]: This is a 61-year-old male who was found down at home with obvious scalp laceration and raccoon eyes. GCS 5-6. Obtunded. Intubated in the ED. + Cannabis. INJURIES: Skull fx SDH (temporal and parietal) LEFT cerebral contusions (w/compression of 4th ventricle) RIGHT temporal contusion LEFT parietal lobe contusion Procedures: 11/13: Intubated in the ED 11/13: Suboccipital craniectomy Consults: CCM. Neurosurgery. Rehabilitation medicine. Neuropsych. Case management. Assessment and plan by system: NEUROLOGICAL: 11/13: Suboccipital craniectomy Sedated with propofol gtt. Opens eyes Moves all extremities well, but not yet to command. Sedation vacations daily to assess weaning capability. Pt is sedated with a RASS score of -2 Provide analgesia for comfort and pain. Fentanyl 50 mg patch. Percocet 5 mg every 6 hours PRN Serial neuro checks. 11/16: CT brain: Stable post OR - Interval left occipital craniectomy with pneumocephalus, intraparenchymal hemorrhage, subdural hemorrhage and subarachnoid hemorrhage 11/23: Ct brain - stable EVD - Ventriculostomy ICP = 5-7. Seizure precautions. Seizure prophylaxis - IV Keppra 3% saline - discontinued. NA = 143 HOB elevated 30 degrees - + peripheral pulses x 4 extremities. CARDIOVASCULAR: HR - 60-66 sinus bradycardia BP - 152/81 Continually monitor for hemodynamic instability (shock and hypotension). BP meds - Lopressor q 6h. Hydralazine 10 mg q 6h. Volume status - +883. Follow CMP - Electrolyte status - Electrolyte protocol - in place RESPIRATORY: 11/13: Intubated in the ED Vent settings- 500 / 14 / 30% / 1.0 / +5 Sats = 97% Increase PEEP carefully (to assist in oxygenation by recruiting alveoli.) Weaning - will attempt CPAP trials once ICPs are better controlled and patient is more awake and following commands Consider tracheostomy if patient unable to wean from the ventilator. O2 Sats - Monitor for hypoxemia Goal of end tital CO2 = 35-40 Follow ABGs - Lung sounds - CTA Pulmonary toilet - L&S. Bronchodilators - Breathing treatments - duonebs. Chest X-Ray results - minimal bibasilar dependent airspace disease. Stable. Sputum culture - echoli Antibiotics - Rocephin IV VAP protocol in place - Labs tomorrow Chest X-Ray daily GASTROINTESTINAL: Diet - Jevity at 60 ml/hr. TF - minimal residuals Bowel sounds - + x 4 quads Bowel regimen - Colace. MOM. Lactulose. Bisacodyl ID LBM - 11/23 GI open J tube RENAL / URINARY: Strict I&O - +883 BUN / creat 19 / 0.45 Maintain charles for strict diagnosis - Charles in place to bedside drainage bag Urine culture - neg ENDOCRINE: BGM - 122 via am labs SSI HEMATOLOGY: H&H 8.5 / 25.7 Continue to monitor for signs and symptoms of bleeding. Evaluate need for IVC filter. Transfuse for < 7.0 Monitor patient for any bleeding complications. Started Lovenox for DVT prophylaxis - okay with neurosurgery INFECTIOUS DISEASE: Follow CBC Monitor for signs and symptoms of infection: WBC - 18.8 [place] culture today. Provide pt with a line holiday. Remove Central line and A line Low grade fevers Administer antipyretics for temp as needed. IV abx: Rocephin 11/23: Sputum 11/23: Blood - 11/23: Urine: 11/19: Urine - neg 11/15: Sputum - Ecoli 11/15: Blood - NEG 11/13: CSF - NEG Monitor for pneumonia evolution with repeat chest X-Rays as needed. Maintain vigorous aseptic care of central line to avoid blood stream infections. Consider a consult to ID for further management IV LINES: 11/13: Ventric 11/13: ETT 11/13: OGT 11/13: R IJ TLC (DC) 11/13: L Rad [place] (DC) 11/19: Charles PROPHYLAXIS: VAP - chlorhexidine mouth care in place GI - Pepcid BID po DVT - Mechanical VTE with SCDs. Chemical management with Lovenox 30 BID SQ - cleared and okay with neurosurgery SKIN: Warm and dry Bilateral orbital ecchymosis and edema. ACTIVITY: Status - BR PT and OT ordered. CASE MANAGEMENT: Consulted for assist with DC planning. Placement - disposition - TBD. EMOTIONAL SUPPORT: Provided to patient and family. Plan of care discussed. Questions answered to the best of my knowledge. Patient is clearly improving, GCS is 11 T, we'll start him on trach collar ,DC his IV fluid and restart his tube feeds Attestation We will restart enteral feedings today and see how patient tolerates Critical-care 35 minutes Problem Qualifiers (1) Skull fractures: (2) Traumatic brain injury: Tayler Hitchcock MD Dec 01, 2016 13:37
[2016-12-01] MEDS: cefTRIAXone INJ 2,000 MG in SODIUM CHLORIDE 0.9% INJ 100 ML IV SCH (14:00)
--- NOTE | 2016-12-01 14:33 | HHI.HCPN ---
Reason for visit a. To assist with evaluation and management of symptoms including: Pain, dyspnea, nausea b. To assist medical decision maker(s) with: better understanding of current medical conditions; weighing benefits/burdens of medical treatment options; making medical treatment decisions. Subjective/Interval History This is a 61 year old male brought to [place] as a trauma alert under Trino Carlisle 11/13/16, after being found down at home by family with an obvious scalp hematoma to the posterior part of his head, unconscious. Per my discussion with his daughter, Sloan Briseno, her grandmother had contacted her that she was unable to help her father get up. The daughter came immediately to the home to find her father lying upstairs in the hallway in a pool of blood. Blood was found on his bed, down stairs near the entry way and several other places in the home. She describes her father as unconscious at that time. Emergency services were summoned, to include the [place] [employer] who is still investigating. He was emergently intubated in the ED and underwent left suboccipital craniectomy with evacuation of cerebellar hemorrhage and placement of a ventriculostomy catheter via a right frontal manas hole. He is seen in the intensive care unit status post tracheostomy. Interim history 11/28/16 - CT head revealed subdural hemorrhage and intraparenchymal hemorrhage appearing to be undergoing a expected evolution, significant decrease in amount of cerebral edema. 11/29/16- Patient more alert. SBT in progress. 11/30/16- ventriculostomy drain removed. 11/30/16-Leaking around J-tube incision site- sutures applied. Patient seen in room today, alert and attempting to communicate by mouthing words. Intermittently following commands per nursing. Patient on T piece, FiO2 28%. Chest x-ray today revealing some interval worsening in aeration. Tube feeds placed on hold last night due to abdominal distention. Abdomen x-ray revealing no evidence of obstruction. Report from nursing that patient has started to move his bowels today. Patient is afebrile. SBP 140s- 160s. Laboratory workup today revealing WBC 7.0, hemoglobin 8.7, hematocrit 26.5, platelet count 324, sodium 141, potassium 3.6, BUN/creatinine 9/0.30, AST 45, ALT 41, albumin 2.0. Case discussed with bedside RN. . Family/friend interactions No family at bedside. Advance Directives Living Will: Never completed Health Care Surrogate: Never completed Durable Power of Health Concierge: Never completed Objective Vital Signs Date Time Temp Pulse Resp B/P (MAP) Pulse Ox O2 Delivery O2 Flow Rate FiO2 12/01/16 12:05 28 12/01/16 12:00 35 12/01/16 08:20 35 12/01/16 08:20 100 T-piece 5.00 40 12/01/16 08:00 40 12/01/16 06:00 84 12/01/16 04:00 98.7 88 28 161/88 (112) 100 12/01/16 04:00 40 12/01/16 04:00 88 12/01/16 02:00 88 12/01/16 00:00 88 12/01/16 00:00 98.7 88 28 143/83 (103) 99 12/01/16 00:00 40 11/30/16 22:00 86 11/30/16 20:22 100 T-piece 40 11/30/16 20:00 96 11/30/16 20:00 98.4 96 29 146/88 (107) 100 11/30/16 20:00 40 11/30/16 18:00 99 11/30/16 16:00 99.0 88 18 143/89 (107) 99 11/30/16 16:00 40 11/30/16 16:00 94 11/30/16 14:00 81 Intake & Output 12/01/16 12/01/16 07:00 19:00 Intake Total 2860 ml Output Total 800 ml Balance 2060 ml Intake IV Total 2000 ml Tube Feeding 800 ml Tube Irrigant 60 ml Output Urine Total 800 ml # Bowel Movements 0 Physical Exam CONSTITUTIONAL/GENERAL: This is a thin middle-aged male, lying in bed, trached on T Cruz, FIO2 28%,alert and attempting to communicate by mouthing words. TUBES/LINES/DRAINS: Left radial art line, right upper arm PIV, right antecubital PIV, triple-lumen right IJ, J tube SKIN: No jaundice, rashes, or lesions. Skin temperature appropriate. Not diaphoretic. HEAD: Right cranial incision healing well EYES: Pupils 3 mm, equal and round and reactive. Bilateral scleral injection. NECK: Trachea midline. Midline tracheostomy. CARDIOVASCULAR: Regular rate and rhythm without murmurs, gallops, or rubs. Peripheral pulses symmetric. RESPIRATORY/CHEST: Symmetric, unlabored respirations. Breath sounds clear to auscultation. On Tpierce 28% GASTROINTESTINAL: Abdomen slightly firm, nondistended. Positive bowel sounds present. J-tube clamped.Abdominal binder in place. GENITOURINARY: Without palpable bladder distension. Clark catheter in place. MUSCULOSKELETAL: Extremities without clubbing, cyanosis, or edema. No mottling or clubbing. Spontaneous movement seen in bilateral lower and right upper extremity, no movement seen in left upper extremity. NEUROLOGICAL: Awake, alert , spontaneously moving right upper and bilateral lower extremities. Followed simple commands with BLE and RLE, did not follow with LUE. PSYCHIATRIC: Calm. . Diagnostic Tests Laboratory Laboratory Tests Test 11/29/16 05:53 11/29/16 23:22 11/30/16 05:55 12/01/16 04:27 White Blood Count 9.0 TH/MM3 (4.0-11.0) 7.9 TH/MM3 (4.0-11.0) 7.1 TH/MM3 (4.0-11.0) 7.0 TH/MM3 (4.0-11.0) Red Blood Count 2.77 MIL/MM3 (4.50-5.90) 2.72 MIL/MM3 (4.50-5.90) 2.64 MIL/MM3 (4.50-5.90) 2.67 MIL/MM3 (4.50-5.90) Hemoglobin 9.3 GM/DL (13.0-17.0) 8.9 GM/DL (13.0-17.0) 8.7 GM/DL (13.0-17.0) 8.7 GM/DL (13.0-17.0) Hematocrit 27.9 % (39.0-51.0) 27.0 % (39.0-51.0) 26.4 % (39.0-51.0) 26.5 % (39.0-51.0) Mean Corpuscular Volume 100.7 FL (80.0-100.0) 99.2 FL (80.0-100.0) 100.0 FL (80.0-100.0) 99.4 FL (80.0-100.0) Mean Corpuscular Hemoglobin 33.4 PG (27.0-34.0) 32.7 PG (27.0-34.0) 33.0 PG (27.0-34.0) 32.7 PG (27.0-34.0) Mean Corpuscular Hemoglobin Concent 33.2 % (32.0-36.0) 33.0 % (32.0-36.0) 33.0 % (32.0-36.0) 32.9 % (32.0-36.0) Red Cell Distribution Width 17.4 % (11.6-17.2) 17.5 % (11.6-17.2) 17.4 % (11.6-17.2) 17.0 % (11.6-17.2) Platelet Count 346 TH/MM3 (150-450) 361 TH/MM3 (150-450) 293 TH/MM3 (150-450) 324 TH/MM3 (150-450) Mean Platelet Volume 8.3 FL (7.0-11.0) 7.5 FL (7.0-11.0) 7.9 FL (7.0-11.0) 8.2 FL (7.0-11.0) Neutrophils (%) (Auto) 67.9 % (16.0-70.0) 70.3 % (16.0-70.0) 65.9 % (16.0-70.0) 61.9 % (16.0-70.0) Lymphocytes (%) (Auto) 17.8 % (9.0-44.0) 14.9 % (9.0-44.0) 19.4 % (9.0-44.0) 23.0 % (9.0-44.0) Monocytes (%) (Auto) 12.0 % (0.0-8.0) 12.9 % (0.0-8.0) 12.3 % (0.0-8.0) 13.2 % (0.0-8.0) Eosinophils (%) (Auto) 1.4 % (0.0-4.0) 1.3 % (0.0-4.0) 1.5 % (0.0-4.0) 1.2 % (0.0-4.0) Basophils (%) (Auto) 0.9 % (0.0-2.0) 0.6 % (0.0-2.0) 0.9 % (0.0-2.0) 0.7 % (0.0-2.0) Neutrophils # (Auto) 6.1 TH/MM3 (1.8-7.7) 5.6 TH/MM3 (1.8-7.7) 4.7 TH/MM3 (1.8-7.7) 4.3 TH/MM3 (1.8-7.7) Lymphocytes # (Auto) 1.6 TH/MM3 (1.0-4.8) 1.2 TH/MM3 (1.0-4.8) 1.4 TH/MM3 (1.0-4.8) 1.6 TH/MM3 (1.0-4.8) Monocytes # (Auto) 1.1 TH/MM3 (0-0.9) 1.0 TH/MM3 (0-0.9) 0.9 TH/MM3 (0-0.9) 0.9 TH/MM3 (0-0.9) Eosinophils # (Auto) 0.1 TH/MM3 (0-0.4) 0.1 TH/MM3 (0-0.4) 0.1 TH/MM3 (0-0.4) 0.1 TH/MM3 (0-0.4) Basophils # (Auto) 0.1 TH/MM3 (0-0.2) 0.0 TH/MM3 (0-0.2) 0.1 TH/MM3 (0-0.2) 0.1 TH/MM3 (0-0.2) CBC Comment DIFF FINAL DIFF FINAL DIFF FINAL DIFF FINAL Differential Comment Blood Urea Nitrogen 12 MG/DL (7-18) 10 MG/DL (7-18) 9 MG/DL (7-18) Creatinine 0.37 MG/DL (0.60-1.30) 0.27 MG/DL (0.60-1.30) 0.30 MG/DL (0.60-1.30) Random Glucose 82 MG/DL (74-106) 103 MG/DL (74-106) 102 MG/DL (74-106) Total Protein 5.9 GM/DL (6.4-8.2) 5.2 GM/DL (6.4-8.2) 5.3 GM/DL (6.4-8.2) Albumin 2.1 GM/DL (3.4-5.0) 1.9 GM/DL (3.4-5.0) 2.0 GM/DL (3.4-5.0) Calcium Level 8.3 MG/DL (8.5-10.1) 7.5 MG/DL (8.5-10.1) 8.1 MG/DL (8.5-10.1) Alkaline Phosphatase 78 U/L (45-117) 67 U/L (45-117) 87 U/L (45-117) Aspartate Amino Transf (AST/SGOT) 57 U/L (15-37) 44 U/L (15-37) 45 U/L (15-37) Alanine Aminotransferase (ALT/SGPT) 46 U/L (12-78) 41 U/L (12-78) 41 U/L (12-78) Total Bilirubin 0.8 MG/DL (0.2-1.0) 0.7 MG/DL (0.2-1.0) 0.6 MG/DL (0.2-1.0) Sodium Level 142 MEQ/L (136-145) 140 MEQ/L (136-145) 141 MEQ/L (136-145) Potassium Level 4.1 MEQ/L (3.5-5.1) 3.6 MEQ/L (3.5-5.1) 3.6 MEQ/L (3.5-5.1) Chloride Level 112 MEQ/L (98-107) 110 MEQ/L (98-107) 109 MEQ/L (98-107) Carbon Dioxide Level 20.9 MEQ/L (21.0-32.0) 22.2 MEQ/L (21.0-32.0) 24.8 MEQ/L (21.0-32.0) Anion Gap 9 MEQ/L (5-15) 8 MEQ/L (5-15) 7 MEQ/L (5-15) Estimat Glomerular Filtration Rate 240 ML/MIN (>89) 345 ML/MIN (>89) 306 ML/MIN (>89) Result Diagram: 12/01/16 0427 12/01/16 0427 Imaging Last 24 hours Impressions Chest X-Ray 12/01/16 0600 Signed Impressions: Service Date/Time: Thursday, December 01, 2016 05:04 - CONCLUSION: Some interval worsening in aeration. Fabien Leon MD Abdomen X-Ray 12/01/16 0000 Signed Impressions: Service Date/Time: Thursday, December 01, 2016 08:13 - CONCLUSION: 1. No evidence of obstruction. Kam Menezes MD Procedures 11/30/16- Ventriculostomy drain removed 11/25/16 - J-tube placed via open approach. 11/24/16 - tracheostomy placement 11/24/16 - attempted esophageal PEG placement, failed. 11/13/16 - intubation 11/13/16 - right frontal manas hole with placement of ventriculostomy catheter 11/13/16- left suboccipital craniectomy, evacuation of cerebellar hemorrhage. . Assessment and Plan Disease Oriented Problem List: (1) Status post craniectomy (2) Traumatic brain injury (3) Skull fractures (4) Intracranial hemorrhage (5) Major neurocognitive disorder as late effect of traumatic brain injury without behavioral disturbance Symptom Scale: (1) Dyspnea and respiratory abnormalities 0-10 Scale: Unable to quantify (2) Pain, generalized 0-10 Scale: Unable to quantify Pertinent Non-Medical Issues Psychosocial:He was born in [place] and lived in many countries around the [place], moving to the [facility] in 1997 to settle in [place]. 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 He currently works at [employer]. He speaks multiple languages to include Persian, Sinhala, Albanian , Malay and [place]andan. He lives with his mother to provide care for her, as she has Alzheimer's dementia. Spiritual: He was raised Sikhism and would appreciate [facility]] visits. Legal: He has 3 daughters who will serve as joint healthcare proxies. His mother has Alzheimer's dementia and is unable to participate in decision-making. Ethical issues impacting care: Circumstances surrounding patient's injury are not known, however, [place] [employer] police are investigating and would like to speak with him regarding the circumstances once he is conscious and able to communicate. Important Contacts Susana Briseno - [phone] Sloan Reyes [phone] Charlene Briseno [phone] . Prognosis His prognosis is guarded. He has suffered an extensive head injury and is currently requiring mechanical ventilation. It is expected that he has a very long rehabilitation course ahead of him, should he survive this ICU admission. His hospital course is expected to be extended and he is likely to have sequelae of severe head trauma. Code Status: Full Code Plan PLAN: Legal decision maker: He has 3 daughters, Sloan Briseno, Charlene Briseno and Susana Briseno Goals: Aggressive CODE STATUS: Full code SYMPTOMS: * Pain - currently receiving fentanyl patch with as needed Roxicodone. Last pain medication administered 11/30/16 at 0614hrs. Patient is currently not showing any signs of pain at this time. He will require frequent nursing assessments to evaluate changes in posture, countenance for possible pain. * Dyspnea - Patient trached and now on T-cruz. FIO2- 28%. Remains at risk for dyspnea due to possible aspiration, potential infection, immobility. Receiving scheduled DuoNebs. * Nausea - No reports of nausea but patient`s TF placed on hold for abdominal distention last night.Patient moved bowels today and TF will be restarted. Patient on Reglan q 8 hours and Ondansetron prn available. Palliative care will continue to follow the patient during hospital course as condition evolves, to assist patient/decision-maker with understanding of their medical conditions, weighing benefits/burdens of treatment options, for clarification of goals of treatment. Additionally will assist with any symptoms of palliative concern Attestation To help prompt me to consider important information that might be impacting todays encounter, some historical information from prior notes written by myself or my colleagues may have been brought forward into todays note. My signature on this note, however, is an attestation that I personally performed the exam noted today, and, unless otherwise dated, the interactions with patient , family, and staff as well as the review of records noted all occurred today. I also attest that the listed assessment and stated plan reflect my best clinical judgment today based on the combination of historical information, prior notes, and todays exam/ interactions. The level of evaluation / management services and/or time that is claimed for this visit does NOT include work or time done by myself or other providers on previous visits. . Santi Blanco Dec 01, 2016 14:33
[2016-12-01] MEDS: METOCLOPRAMIDE HCL 10 MG/2 ML VIAL IV PUSH SCH ×2 (15:20→21:10)
[2016-12-01] MEDS: traZODone HCL 50 MG TAB PO SCH (20:03)
[2016-12-01] MEDS: MAGNESIUM HYDROXIDE SUSP 30 ML CUP PO SCH (21:00)
[2016-12-02] VITALS (15 sets, daily range): BP systolic 123–155; BP diastolic 78–100; PULSE 64–106; RESP 20–28; TEMP 98.2–98.7; O2SAT 94–100
[2016-12-02] MEDS: SODIUM CHLOR 0.9% 1000 ML INJ 1,000 ML IV SCH ×3 (00:13→14:08)
[2016-12-02] MEDS: METOPROLOL TARTRATE 5 MG/5 ML VIAL IV PUSH SCH ×3 (01:40→15:34)
[2016-12-02] MEDS: SODIUM CHLORIDE 1 GRAM TAB PO SCH ×4 (01:41→20:49)
[2016-12-02] MEDS: LABETALOL HCL 100 MG/20 ML VIAL IV PUSH PRN (04:14)
[2016-12-02] MEDS: METOCLOPRAMIDE HCL 10 MG/2 ML VIAL IV PUSH SCH ×3 (05:34→22:00)
[2016-12-02] MEDS: hydrALAZINE HCL 20 MG/ML VIAL IV PUSH SCH ×2 (05:34→13:45)
[2016-12-02] MEDS: LACTULOSE SYRUP 20 GM/30 ML CUP PO SCH (09:00)
[2016-12-02] MEDS: CHLORHEXIDINE 0.12% (ORAL KIT) 15 ML CUP MT SCH ×2 (09:01→20:51)
[2016-12-02] MEDS: ARTIFICIAL TEARS OPTH SOLN 15 ML BTL EACH EYE SCH ×3 (09:02→20:51)
[2016-12-02] MEDS: SODIUM CHLORIDE 0.9% FLUSH 10 ML FLUSH IV FLUSH SCH ×2 (09:02→20:50)
[2016-12-02] MEDS: FAMOTIDINE 20 MG TAB NG SCH ×2 (09:03→20:50)
[2016-12-02] MEDS: VALPROIC ACID SYRUP 250 MG/5 ML UDC PO SCH ×2 (09:04→20:50)
[2016-12-02] MEDS: SENNOSIDES SYRUP 8.8 MG/5 ML CUP PO SCH (09:04)
[2016-12-02] MEDS: ENOXAPARIN SODIUM 30 MG/0.3 ML SYRINGE SQ SCH ×2 (09:05→20:50)
--- NOTE | 2016-12-02 12:25 | HHI.CCPN ---
Subjective Brief History [place]: This is a 61-year-old male found in his apartment face down with massive injuries to the head brought in as priority 1 trauma alert and resuscitated. He is taken immediately to CT scan after resuscitation. He is found to have massive intracranial injuries including skull fracture, bleeding in the right cerebellar hemisphere, compression of the flow of the cerebrospinal fluid, hemorrhages in the cerebral area and some air. He also has a large subdural hematoma on the right. The patient is taken immediately to the operating room and he will come to the ICU after the decompression. Discussed this with Dr. Grimm. 24 Hour Review/Hospital Course 11/14/16 Patient underwent craniotomy and evacuation of the right posterior fossa hematoma In addition patient has a tear in the transfer sinus which is now clotted off Patient is now any ICU and remains on neuroprotective measures including Propofol/fentanyl 3% saline with sodium around 155 mEq per liter [facility] Maikel Coma Scale remains 3-4 ICP 12 mmHg and controllable Centra perfusion pressure has been adequate without any administration of vasopressors based on measurements of mean arterial pressure 11/15/16 Patient is neurologically somewhat improved and Maikel Coma Scale is about 6-7 Patient doesn't follow commands however he opens his eyes and moves all 4 extremities spontaneously This is a significant improvement in last 24 hours Remains off propofol Sodium adequate and with normal ICP hypertonic saline has been discontinued as well Repeat CT scan of the brain tomorrow 11/16/16 Patient with severe brain injuries on repeat CT scan he is residual subdural and subarachnoid hemorrhage intraparenchymal hemorrhages and brain contusions Moves all 4 extremities when now sedation indication Maikel Coma Scale around 5 Patient remains on neuroprotective measures including propofol and fentanyl ICP 8-12 mmHg 11/17/16 Neurologic status unchanged On sedation vacation patient is moving all 4 extremities but doesn't open eyes or tracs ICP remains low around 8-12 mmHg Patient remains on small dose propofol and fentanyl for pain Will start on antihypertensive some further decrease the propofol 11/18/16 sedation holiday-open eyes,moving all 4 extremities ICP/CPP-wnl propofol/fentanyl 11/19/16 open eyes,moving all 4 extremities on sedation holiday ICP/CPP-controlled tolerating tube feeds started propranolol 11/20/2016 PTD: 7 Weaning sedation slowly. Opens eyes. Pt moves all extremities, but not yet to command. ICP = 1-7, He had an episode overnight were ICP increased to 16 with turning for a linen change. Discussed with daughter at bedside. 11/21/16 No change in neurologic status On sedation vacation patient moves all 4 extremities but doesn't follow any commands and does not track ICP remains low Withdrawal of hypertonic saline resulted in increase it of intracranial pressure so this has been restarted Neuroprotective measures including Propofol/fentanyl Hypertonic saline at 3% 20 cc an hour At this point there is no where to go as far as decreasing any of these and we' ll just leave everything is a distal tomorrow and then try to decrease hypertonic saline again 11/22/16 No change in neurologic status Place patient on sedation vacation from propofol and he is opening eyes but doesn't track does not follow any commands ICP remains low and patient has responding central perfusion pressure which is adequate in the range of mean arterial pressure Hypertensive and therefore placed on Lopressor and hydralazine This patient has been in the unit for 9 days and at this point decision-making comes to tracheostomy and PEG and I discussed this with his daughter Depending on patient's progress in next 24-48 hrs, patient will likely be scheduled for tracheostomy 11/23/2016 PTD: 10 Patient remains sedated and mechanically ventilated. Opens eyes. Spoke with daughter at bedside to prepare for trach placement either today or tomorrow. Additionally patient will need PEG placement. 11/24/16 With sedation vacation patient is moving all 4 extremities opening eyes and according to the nurse tracking which is a great improvement Maikel Coma Scale on sedation medications about 7 or patient doesn't follow commands Level of consciousness does not allow extubation therefore tracheostomy has been performed at the bedside today Bilateral good breath sounds and good inspiratory effort I'll try to wean patient off the ventilator in next few days the tracheostomy is in place Abdomen is soft with active bowel sounds and patient is scheduled to have PEG today Medical critical care help is greatly appreciated and adjustment of antibiotics appropriate 11/25/16 No change in current status Patient is opening eyes moving all 4 extremities and apparently tracking occasionally Underwent successful tracheostomy and is gone be weaned off the ventilator if the next few days PEG could not be performed due to 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 and therefore I'll take the patient today for open jejunostomy placement Abdomen soft Bilateral breath sounds slightly diminished over the bases Hemodynamically remains stable 11/26 s/p J tube and tracheostomy opening eyes at times HD stable ICP stable 11/27 episode of vomiting yesterday EVD unclamped after ICP increase after rounds NS clamped again ICP <20 eyes open 11/29 Patient's eyes open, he is clearly tracking, he's tolerating CPAP, his abdomen is soft no episodes of vomiting had BMs, the EVD has been removed by neurosurgery 11/30/16 Patient is doing better he is opening eyes and seems to be communicating Moving both legs and both arms but not following any commands Remains on respirator and as of tomorrow we'll start CPAP trials to hopefully separate the patient from the ventilator and next few days Abdomen is soft feeding tube is working well There was some drainage from the feeding tube incision site in the midline and Dr. Rachel varghese as removed some of the stitches Now there is bleeding from the edge of the skin and I controlled it with several Prolene stitches and washed out and sterilely approximated the incision 12/01/16 H and more awake and alert trying to communicate and actually succeeding Now patient is following commands and moving all 4 extremities and is more awake than yesterday Considering the patient has tracheostomy has been liberated from the ventilator and is currently in T piece to be changed to trach collar Secretions and minimal Abdomen is soft feeding jejunostomy is in place and can be used for feedings. Minimal drainage from the incision which is serous and no infections noted Hemoglobin remains stable Provided patient states an trach collar he can be transferred to rehabilitation as soon as a bed is available or to the floor close the nursing station 12/02/16 awake tracking with his eyes Minimal secretions Tolerating trach collar Transfer to floor Objective Vital Signs Date Time Temp Pulse Resp B/P (MAP) Pulse Ox O2 Delivery O2 Flow Rate FiO2 12/02/16 10:00 68 12/02/16 09:03 100 T-piece 5.00 28 12/02/16 08:00 98.7 25 155/86 (109) Intake and Output 12/02/16 12/02/16 12/03/16 08:00 16:00 00:00 Intake Total 1675 ml 60 ml Output Total 600 ml Balance 1075 ml 60 ml Result Diagram: 12/01/1642612/01/16426 Exam 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 T GCS Hemodynamic/Cardiac Stable Pulmonary/Respiratory Trach collar Abdomen/GI Nutrition Soft Urinary Catheter Assessment Urinary Catheter: No Vascular Central Line Catheter Vascular Central Line Catheter: No Date of Insertion: Nov 13, 2016 Line: Central Venous Catheter Side: Right Location: Internal Assessment and Plan Assessment: (1) Skull fractures ICD Code: S02.91XA - Unspecified fracture of skull, initial encounter for closed fracture Status: Acute (2) Intracranial hemorrhage ICD Code: I62.9 - Nontraumatic intracranial hemorrhage, unspecified Status: Acute (3) Major neurocognitive disorder as late effect of traumatic brain injury without behavioral disturbance ICD Code: S06.9X9S - Unspecified intracranial injury with loss of consciousness of unspecified duration, sequela; F02.80 - Dementia in other diseases classified elsewhere without behavioral disturbance Status: Acute (4) Traumatic brain injury ICD Code: S06.9X9A - Unspecified intracranial injury with loss of consciousness of unspecified duration, initial encounter Status: Acute Plan [place]: This is a 61-year-old male who was found down at home with obvious scalp laceration and raccoon eyes. GCS 5-6. Obtunded. Intubated in the ED. + Cannabis. INJURIES: Skull fx SDH (temporal and parietal) LEFT cerebral contusions (w/compression of 4th ventricle) RIGHT temporal contusion LEFT parietal lobe contusion Procedures: 11/13: Intubated in the ED 11/13: Suboccipital craniectomy Consults: CCM. Neurosurgery. Rehabilitation medicine. Neuropsych. Case management. Assessment and plan by system: NEUROLOGICAL: 11/13: Suboccipital craniectomy Sedated with propofol gtt. Opens eyes Moves all extremities well, but not yet to command. Sedation vacations daily to assess weaning capability. Pt is sedated with a RASS score of -2 Provide analgesia for comfort and pain. Fentanyl 50 mg patch. Percocet 5 mg every 6 hours PRN Serial neuro checks. 11/16: CT brain: Stable post OR - Interval left occipital craniectomy with pneumocephalus, intraparenchymal hemorrhage, subdural hemorrhage and subarachnoid hemorrhage 11/23: Ct brain - stable EVD - Ventriculostomy ICP = 5-7. Seizure precautions. Seizure prophylaxis - IV Keppra 3% saline - discontinued. NA = 143 HOB elevated 30 degrees - + peripheral pulses x 4 extremities. CARDIOVASCULAR: HR - 60-66 sinus bradycardia BP - 152/81 Continually monitor for hemodynamic instability (shock and hypotension). BP meds - Lopressor q 6h. Hydralazine 10 mg q 6h. Volume status - +883. Follow CMP - Electrolyte status - Electrolyte protocol - in place RESPIRATORY: 11/13: Intubated in the ED Vent settings- 500 / 14 / 30% / 1.0 / +5 Sats = 97% Increase PEEP carefully (to assist in oxygenation by recruiting alveoli.) Weaning - will attempt CPAP trials once ICPs are better controlled and patient is more awake and following commands Consider tracheostomy if patient unable to wean from the ventilator. O2 Sats - Monitor for hypoxemia Goal of end tital CO2 = 35-40 Follow ABGs - Lung sounds - CTA Pulmonary toilet - L&S. Bronchodilators - Breathing treatments - duonebs. Chest X-Ray results - minimal bibasilar dependent airspace disease. Stable. Sputum culture - echoli Antibiotics - Rocephin IV VAP protocol in place - Labs tomorrow Chest X-Ray daily GASTROINTESTINAL: Diet - Jevity at 60 ml/hr. TF - minimal residuals Bowel sounds - + x 4 quads Bowel regimen - Colace. MOM. Lactulose. Bisacodyl AL LBM - 10/2 GI open J tube RENAL / URINARY: Strict I&O - +883 BUN / creat 19 / 0.45 Maintain charles for strict diagnosis - Charles in place to bedside drainage bag Urine culture - neg ENDOCRINE: BGM - 122 via am labs SSI HEMATOLOGY: H&H 8.5 / 25.7 Continue to monitor for signs and symptoms of bleeding. Evaluate need for IVC filter. Transfuse for < 7.0 Monitor patient for any bleeding complications. Started Lovenox for DVT prophylaxis - okay with neurosurgery INFECTIOUS DISEASE: Follow CBC Monitor for signs and symptoms of infection: WBC - 18.8 Puckett culture today. Provide pt with a line holiday. Remove Central line and A line Low grade fevers Administer antipyretics for temp as needed. IV abx: Rocephin 11/23: Sputum 11/23: Blood - 11/23: Urine: 11/19: Urine - neg 11/15: Sputum - Ecoli 11/15: Blood - NEG 11/13: CSF - NEG Monitor for pneumonia evolution with repeat chest X-Rays as needed. Maintain vigorous aseptic care of central line to avoid blood stream infections. Consider a consult to ID for further management IV LINES: 11/13: Ventric 11/13: ETT 11/13: OGT 11/13: R IJ TLC (DC) 11/13: L James Michelne (DC) 11/19: Charles PROPHYLAXIS: VAP - chlorhexidine mouth care in place GI - Pepcid BID po DVT - Mechanical VTE with SCDs. Chemical management with Lovenox 30 BID SQ - cleared and okay with neurosurgery SKIN: Warm and dry Bilateral orbital ecchymosis and edema. ACTIVITY: Status - BR PT and OT ordered. CASE MANAGEMENT: Consulted for assist with DC planning. Placement - disposition - TBD. EMOTIONAL SUPPORT: Provided to patient and family. Plan of care discussed. Questions answered to the best of my knowledge. Patient is clearly improving, GCS is 11 T, transfer floor Problem Qualifiers (1) Skull fractures: (2) Traumatic brain injury: Ayesha Brown MD Dec 02, 2016 12:25 pm
--- NOTE | 2016-12-02 13:31 | HHI.PR ---
Subjective Subjective Comments Patient with eyes open. Appears to be comfortable with trach in place/T-piece. Allergies: Coded Allergies: No Known Allergies (Unverified , 01/29/16) Review of Systems All other ROS: ROS reviewed as documented in chart Exam I&O / VS 12/02/16 12/02/16 12/03/16 15:00 23:00 07:00 Intake Total 60 ml Balance 60 ml Other 60 ml # Bowel Movements 0 Vital Signs Date Time Temp Pulse Resp B/P (MAP) Pulse Ox O2 Delivery O2 Flow Rate FiO2 12/02/16 10:00 68 12/02/16 09:03 100 T-piece 5.00 28 12/02/16 08:00 98.7 84 25 155/86 (109) 98 12/02/16 08:00 28 12/02/16 08:00 84 12/02/16 06:00 67 12/02/16 04:30 138/84 (102) 12/02/16 04:00 28 12/02/16 04:00 98.6 78 23 146/100 (115) 99 12/02/16 04:00 78 12/02/16 02:00 64 12/02/16 00:00 98.5 82 28 147/92 (110) 98 12/02/16 00:00 82 12/02/16 00:00 28 12/01/16 22:00 80 12/01/16 20:54 97 T-piece 28 12/01/16 20:00 78 12/01/16 20:00 28 12/01/16 20:00 98.7 78 24 162/91 (114) 97 12/01/16 18:00 82 12/01/16 16:00 72 12/01/16 16:00 28 12/01/16 16:00 98.2 72 29 169/95 (119) 96 12/01/16 14:00 76 General: No acute distress, Other (Trach with T-piece) Cardiovascular: Normal rate Skin: Other (SCDs in place) Musculoskeletal: ROM (within functional limits), Other (SCDs in place) Psychiatric: Cooperative Neurologic: Pupils (PERRLA), EOM (tracks right and left), Speech (Not attempting to verbalize), Other (spontaneous bilateral lower extremity movement but not following commands) Clonus: Negative Objective Micro and Labs Date/Time Source Procedure Growth Status 11/24/16 06:00 Blood Peripheral Aerobic Blood Culture - Final NO GROWTH IN 5 DAYS Complete 11/24/16 06:00 Blood Peripheral Anaerobic Blood Culture - Final NO GROWTH IN 5 DAYS Complete 11/13/16 14:31 Cerebral Spinal Fluid Shunt Fluid Fungal Smear - Final NO FUNGAL ELEMENTS SEEN. Resulted 11/13/16 14:31 Cerebral Spinal Fluid Shunt Fluid Fungal Culture - Preliminary NO GROWTH IN 2 WEEKS Resulted 11/23/16 18:00 Sputum Endotracheal Gram Stain - Final Complete 11/23/16 18:00 Sputum Culture - Final Escherichia Coli Complete 11/23/16 18:00 Urine Catheterized Urine Urine Culture - Final NO GROWTH IN 48 HOURS. Complete Assessment and Plan Diagnosis: (1) Traumatic brain injury ICD Codes: S06.9X9A - Unspecified intracranial injury with loss of consciousness of unspecified duration, initial encounter Status: Acute Qualifiers: Encounter type: subsequent encounter Loss of consciousness presence/ duration: with LOC of unspecified duration Assessment 1. Traumatic brain injury status post left suboccipital craniotomy for evacuation of cerebellar hemorrhage with ventriculostomy placement. Rancho level 3 2. Aspiration pneumonitis 3. Trach currently on T-piece with 5 liters 4. J-tube Plan 1. PT is providing range of motion and patient is able to transfer to edge of bed max assist for 10 minutes. Continue to mobilize as tolerated 2. OT following and dependent for ADLs 3. Appreciate neuropsychology evaluation and follow-up 4. SCDs in place for DVT prophylaxis 5. Reposition every 2 hours to protect skin and monitor for breakdown 6. Will follow in conjunction with case management regarding rehabilitation needs at discharge. Anticipate patient will need ongoing inpatient care. 7. Will follow hospitalized and is appropriate at discharge Sandhya Martínez MD Dec 02, 2016 13:31
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
[2016-12-02] MEDS ORDERED: ENALAPRILAT 1.25 MG/ML VIAL IV PUSH PRN (17:45)
[2016-12-02] MEDS: hydrALAZINE HCL 25 MG TAB PO SCH ×2 (18:00→20:49)
[2016-12-02] MEDS: LACTATED RINGER'S 1000 ML INJ 1,000 ML IV SCH (19:15)
--- NOTE | 2016-12-02 19:17 | RADRPT ---
EXAM DATE/TIME: 12/02/2016 18:58 [facility] COMPARISON: CT ABDOMEN & PELVIS W CONTRAST, November 13, 2016, 13:17. INDICATIONS : Surgical wound drainage. ORAL CONTRAST: No oral contrast ingested. RADIATION DOSE: 10.33 CTDIvol (mGy) MEDICAL HISTORY : Ulcers. SURGICAL HISTORY : Partial gastrectomy. ENCOUNTER: Initial ACUITY: 1 day PAIN SCALE: 5/10 LOCATION: Bilateral abdomen TECHNIQUE: Volumetric scanning of the abdomen and pelvis was performed. Using automated exposure control and ad justment of the mA and/or kV according to patient size, radiation dose was kept as low as reasonably achievable to obtain optimal diagnostic quality images. DICOM format image data is available electro nically for review and comparison. The lack of IV contrast limits the diagnosis for certain organ pa thology. FINDINGS: LOWER LUNGS: Bilateral pleural effusions with bibasilar atelectasis. LIVER: Homogeneous density. A few stable hepatic cysts. There is no dilation of the biliary tree. No gallb ladder, surgically removed.. There is new free fluid in the upper abdomen around the liver and spleen . SPLEEN: Normal size without lesion. Fluid around spleen. PANCREAS: Within normal limits. KIDNEYS: Normal in size and shape. There is no mass, stone, or hydronephrosis. ADRENAL GLANDS: Within normal limits. VASCULAR: There is no aortic aneurysm. BOWEL/MESENTERY: There is a gastrostomy tube in the stomach. There is some free fluid in the abdomen. There is a feedi ng tube in the small bowel. There is some scattered diverticulosis of the colon. No definite inflamma tory changes. No definite loculated fluid collections. There is stool throughout the colon. ABDOMINAL WALL: There is anasarca with edema throughout the body wall. RETROPERITONEUM: There is some nonspecific nodes in the para-aortic area. BLADDER: No wall thickening or mass. Small amount of air in urinary bladder. REPRODUCTIVE: There appears to be some fluid in the right scrotal sac. This was present on the prior study. INGUINAL: There is no lymphadenopathy or hernia. MUSCULOSKELETAL: Within normal limits for patient age. CONCLUSION: 1. Status post placement of a gastrostomy tube with a feeding tube in the small bowel. 2. There is a small amount of ascites in the upper abdomen. 3. Bilateral pleural effusions with bibasilar atelectasis. 4. Anasarca. 5. Stable hepatic cysts Haris Lockwood MD on December 02, 2016 at 19:10 Board Certified Radiologist. This report was verified electronically.
[2016-12-02] MEDS: MAGNESIUM HYDROXIDE SUSP 30 ML CUP PO SCH (20:50)
[2016-12-02] MEDS: traZODone HCL 50 MG TAB PO SCH (20:51)
[2016-12-02] MEDS: METOPROLOL TARTRATE 25 MG TAB PO SCH (22:00)
[2016-12-03] VITALS (14 sets, daily range): BP systolic 125–163; BP diastolic 71–92; PULSE 68–96; RESP 14–27; TEMP 97.9–99.2; O2SAT 93–96
[2016-12-03] MEDS: SODIUM CHLORIDE 1 GRAM TAB PO SCH ×4 (00:32→21:12)
[2016-12-03] MEDS: LACTATED RINGER'S 1000 ML INJ 1,000 ML IV SCH ×2 (04:45→14:50)
[2016-12-03] MEDS: ARTIFICIAL TEARS OPTH SOLN 15 ML BTL EACH EYE SCH ×3 (04:50→21:13)
[2016-12-03] MEDS: METOCLOPRAMIDE HCL 10 MG/2 ML VIAL IV PUSH SCH (04:50)
[2016-12-03 04:51] LABS: AUTOMATED NEUTROPHIL # 4.4 TH/MM3 (1.8-7.7); BASOPHIL # 0.1 TH/MM3 (0-0.2); BASOPHIL % 1.2 % (0.0-2.0); EOSINOPHIL # 0.1 TH/MM3 (0-0.4); EOSINOPHIL % 1.4 % (0.0-4.0); HEMATOCRIT 28.1 % (39.0-51.0); HEMOGLOBIN 9.3 GM/DL (13.0-17.0); LYMPH % 27.6 % (9.0-44.0); MEAN CELL VOLUME 100.1 FL (80.0-100.0); MEAN CORPUSCULAR HEMOGLOBIN 33.1 PG (27.0-34.0); MEAN PLATELET VOLUME 7.9 FL (7.0-11.0); MONO % 9.6 % (0.0-8.0); MONOCYTE # 0.7 TH/MM3 (0-0.9); NEUT % 60.2 % (16.0-70.0); PLATELET COUNT 308 TH/MM3 (150-450); RED BLOOD COUNT 2.81 MIL/MM3 (4.50-5.90); RED CELL DISTRIBUTION WIDTH 17.3 % (11.6-17.2); WHITE BLOOD COUNT 7.3 TH/MM3 (4.0-11.0)
[2016-12-03 05:21] LABS: BICARBONATE 25.1 MEQ/L (21.0-32.0); CALCIUM 8.1 MG/DL (8.5-10.1); CREATININE 0.31 MG/DL (0.60-1.30)
[2016-12-03] MEDS: CHLORHEXIDINE 0.12% (ORAL KIT) 15 ML CUP MT SCH ×2 (07:51→21:12)
[2016-12-03] MEDS: hydrALAZINE HCL 25 MG TAB PO SCH ×2 (07:51→21:12)
[2016-12-03] MEDS: METOPROLOL TARTRATE 25 MG TAB PO SCH ×2 (07:52→21:12)
[2016-12-03] MEDS: FAMOTIDINE 20 MG TAB NG SCH ×2 (07:53→21:12)
[2016-12-03] MEDS: SENNOSIDES SYRUP 8.8 MG/5 ML CUP PO SCH (07:53)
[2016-12-03] MEDS: VALPROIC ACID SYRUP 250 MG/5 ML UDC PO SCH ×2 (07:53→21:12)
[2016-12-03] MEDS: SODIUM CHLORIDE 0.9% FLUSH 10 ML FLUSH IV FLUSH SCH ×2 (07:54→21:12)
[2016-12-03] MEDS: ENOXAPARIN SODIUM 30 MG/0.3 ML SYRINGE SQ SCH ×2 (07:54→21:11)
[2016-12-03] MEDS: LACTULOSE SYRUP 20 GM/30 ML CUP PO SCH (07:54)
[2016-12-03] MEDS ORDERED: FUROSEMIDE 20 MG/2 ML VIAL IV PUSH ONE (11:00)
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
--- NOTE | 2016-12-03 13:16 | RADRPT ---
EXAM DATE/TIME: 12/03/2016 00:00 [facility] COMPARISON: No previous studies available for comparison. INDICATIONS : Ascities; evalute for paracentesis. FINDINGS: We were asked to perform CT-guided paracentesis. Review of the prior CT scan shows small volume ascit es with insufficient volume for safe paracentesis under CT or ultrasound guidance. No paracentesis pe rformed. CONCLUSION: Insufficient ascitic volume for safe paracentesis. Andrea Glez Jr., MD on December 03, 2016 at 13:14 Board Certified Radiologist. This report was verified electronically.
--- NOTE | 2016-12-03 13:34 | HHI.CCPN ---
Subjective Brief History CHILKOOT: This is a 61-year-old male found in his apartment face down with massive injuries to the head brought in as priority 1 trauma alert and resuscitated. He is taken immediately to CT scan after resuscitation. He is found to have massive intracranial injuries including skull fracture, bleeding in the right cerebellar hemisphere, compression of the flow of the cerebrospinal fluid, hemorrhages in the cerebral area and some air. He also has a large subdural hematoma on the right. The patient is taken immediately to the operating room and he will come to the ICU after the decompression. Discussed this with Dr. Grimm. 24 Hour Review/Hospital Course 11/14/16 Patient underwent craniotomy and evacuation of the right posterior fossa hematoma In addition patient has a tear in the transfer sinus which is now clotted off Patient is now any ICU and remains on neuroprotective measures including Propofol/fentanyl 3% saline with sodium around 155 mEq per liter [facility] Maikel Coma Scale remains 3-4 ICP 12 mmHg and controllable Centra perfusion pressure has been adequate without any administration of vasopressors based on measurements of mean arterial pressure 11/15/16 Patient is neurologically somewhat improved and Maikel Coma Scale is about 6-7 Patient doesn't follow commands however he opens his eyes and moves all 4 extremities spontaneously This is a significant improvement in last 24 hours Remains off propofol Sodium adequate and with normal ICP hypertonic saline has been discontinued as well Repeat CT scan of the brain tomorrow 11/16/16 Patient with severe brain injuries on repeat CT scan he is residual subdural and subarachnoid hemorrhage intraparenchymal hemorrhages and brain contusions Moves all 4 extremities when now sedation indication Maikel Coma Scale around 5 Patient remains on neuroprotective measures including propofol and fentanyl ICP 8-12 mmHg 11/17/16 Neurologic status unchanged On sedation vacation patient is moving all 4 extremities but doesn't open eyes or tracs ICP remains low around 8-12 mmHg Patient remains on small dose propofol and fentanyl for pain Will start on antihypertensive some further decrease the propofol 11/18/16 sedation holiday-open eyes,moving all 4 extremities ICP/CPP-wnl propofol/fentanyl 11/19/16 open eyes,moving all 4 extremities on sedation holiday ICP/CPP-controlled tolerating tube feeds started propranolol 11/20/2016 PTD: 7 Weaning sedation slowly. Opens eyes. Pt moves all extremities, but not yet to command. ICP = 1-7, He had an episode overnight were ICP increased to 16 with turning for a linen change. Discussed with daughter at bedside. 11/21/16 No change in neurologic status On sedation vacation patient moves all 4 extremities but doesn't follow any commands and does not track ICP remains low Withdrawal of hypertonic saline resulted in increase it of intracranial pressure so this has been restarted Neuroprotective measures including Propofol/fentanyl Hypertonic saline at 3% 20 cc an hour At this point there is no where to go as far as decreasing any of these and we' ll just leave everything is a distal tomorrow and then try to decrease hypertonic saline again 11/22/16 No change in neurologic status Place patient on sedation vacation from propofol and he is opening eyes but doesn't track does not follow any commands ICP remains low and patient has responding central perfusion pressure which is adequate in the range of mean arterial pressure Hypertensive and therefore placed on Lopressor and hydralazine This patient has been in the unit for 9 days and at this point decision-making comes to tracheostomy and PEG and I discussed this with his daughter Depending on patient's progress in next 24-48 hrs, patient will likely be scheduled for tracheostomy 11/23/2016 PTD: 10 Patient remains sedated and mechanically ventilated. Opens eyes. Spoke with daughter at bedside to prepare for trach placement either today or tomorrow. Additionally patient will need PEG placement. 11/24/16 With sedation vacation patient is moving all 4 extremities opening eyes and according to the nurse tracking which is a great improvement Maikel Coma Scale on sedation medications about 7 or patient doesn't follow commands Level of consciousness does not allow extubation therefore tracheostomy has been performed at the bedside today Bilateral good breath sounds and good inspiratory effort I'll try to wean patient off the ventilator in next few days the tracheostomy is in place Abdomen is soft with active bowel sounds and patient is scheduled to have PEG today Medical critical care help is greatly appreciated and adjustment of antibiotics appropriate 11/25/16 No change in current status Patient is opening eyes moving all 4 extremities and apparently tracking occasionally Underwent successful tracheostomy and is gone be weaned off the ventilator if the next few days PEG could not be performed due to 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 and therefore I'll take the patient today for open jejunostomy placement Abdomen soft Bilateral breath sounds slightly diminished over the bases Hemodynamically remains stable 11/26 s/p J tube and tracheostomy opening eyes at times HD stable ICP stable 11/27 episode of vomiting yesterday EVD unclamped after ICP increase after rounds NS clamped again ICP <20 eyes open 11/29 Patient's eyes open, he is clearly tracking, he's tolerating CPAP, his abdomen is soft no episodes of vomiting had BMs, the EVD has been removed by neurosurgery 11/30/16 Patient is doing better he is opening eyes and seems to be communicating Moving both legs and both arms but not following any commands Remains on respirator and as of tomorrow we'll start CPAP trials to hopefully separate the patient from the ventilator and next few days Abdomen is soft feeding tube is working well There was some drainage from the feeding tube incision site in the midline and Dr. Rachel varghese as removed some of the stitches Now there is bleeding from the edge of the skin and I controlled it with several Prolene stitches and washed out and sterilely approximated the incision 12/01/16 H and more awake and alert trying to communicate and actually succeeding Now patient is following commands and moving all 4 extremities and is more awake than yesterday Considering the patient has tracheostomy has been liberated from the ventilator and is currently in T piece to be changed to trach collar Secretions and minimal Abdomen is soft feeding jejunostomy is in place and can be used for feedings. Minimal drainage from the incision which is serous and no infections noted Hemoglobin remains stable Provided patient states an trach collar he can be transferred to rehabilitation as soon as a bed is available or to the floor close the nursing station 12/02/16 awake tracking with his eyes Minimal secretions Tolerating trach collar Transfer to floor 12/03 Mental status continues to improve Large amount of serous fluid came out from the abdominal incision last night This scan of the abdomen and pelvis shows anasarca with ascites in the abdomen minimal Amount of secretions continues to tolerate trach collar Objective Vital Signs Date Time Temp Pulse Resp B/P (MAP) Pulse Ox O2 Delivery O2 Flow Rate FiO2 12/03/16 08:04 94 T-piece 28 12/03/16 08:00 76 12/03/16 08:00 98.7 24 163/84 (110) 12/03/16 07:00 6.00 Intake and Output 12/03/16 12/03/16 12/04/16 08:00 16:00 00:00 Intake Total 1200 ml Output Total 1675 ml Balance -475 ml Result Diagram: 12/03/16 0435 12/03/16 0435 Imaging Last 24 hours Impressions Consultation 12/03/16 0000 Signed Impressions: Service Date/Time: November 00:00 - CONCLUSION: Insufficient ascitic volume for safe paracentesis. Andrea Glez Jr., MD Exam [employer] GCS 11T Hemodynamic/Cardiac Stable Pulmonary/Respiratory Trach collar Abdomen/GI Nutrition Soft, some serous drainage from incision Urinary Catheter Assessment Urinary Catheter: No Vascular Central Line Catheter Date of Insertion: Nov 13, 2016 Line: Central Venous Catheter Side: Right Location: Internal Assessment and Plan Assessment: (1) Skull fractures ICD Code: S02.91XA - Unspecified fracture of skull, initial encounter for closed fracture Status: Acute (2) Intracranial hemorrhage ICD Code: I62.9 - Nontraumatic intracranial hemorrhage, unspecified Status: Acute (3) Major neurocognitive disorder as late effect of traumatic brain injury without behavioral disturbance ICD Code: S06.9X9S - Unspecified intracranial injury with loss of consciousness of unspecified duration, sequela; F02.80 - Dementia in other diseases classified elsewhere without behavioral disturbance Status: Acute (4) Traumatic brain injury ICD Code: S06.9X9A - Unspecified intracranial injury with loss of consciousness of unspecified duration, initial encounter Status: Acute Plan CHILKOOT: This is a 61-year-old male who was found down at home with obvious scalp laceration and raccoon eyes. GCS 5-6. Obtunded. Intubated in the ED. + Cannabis. INJURIES: Skull fx SDH (temporal and parietal) LEFT cerebral contusions (w/compression of 4th ventricle) RIGHT temporal contusion LEFT parietal lobe contusion Procedures: 11/13: Intubated in the ED 11/13: Suboccipital craniectomy Consults: CCM. Neurosurgery. Rehabilitation medicine. Neuropsych. Case management. Assessment and plan by system: NEUROLOGICAL: 11/13: Suboccipital craniectomy Sedated with propofol gtt. Opens eyes Moves all extremities well, but not yet to command. Sedation vacations daily to assess weaning capability. Pt is sedated with a RASS score of -2 Provide analgesia for comfort and pain. Fentanyl 50 mg patch. Percocet 5 mg every 6 hours PRN Serial neuro checks. 11/16: CT brain: Stable post OR - Interval left occipital craniectomy with pneumocephalus, intraparenchymal hemorrhage, subdural hemorrhage and subarachnoid hemorrhage 11/23: Ct brain - stable EVD - Ventriculostomy ICP = 5-7. Seizure precautions. Seizure prophylaxis - IV Keppra 3% saline - discontinued. NA = 143 HOB elevated 30 degrees - + peripheral pulses x 4 extremities. CARDIOVASCULAR: HR - 60-66 sinus bradycardia BP - 152/81 Continually monitor for hemodynamic instability (shock and hypotension). BP meds - Lopressor q 6h. Hydralazine 10 mg q 6h. Volume status - +883. Follow CMP - Electrolyte status - Electrolyte protocol - in place RESPIRATORY: 11/13: Intubated in the ED Vent settings- 500 / 14 / 30% / 1.0 / +5 Sats = 97% Increase PEEP carefully (to assist in oxygenation by recruiting alveoli.) Weaning - will attempt CPAP trials once ICPs are better controlled and patient is more awake and following commands Consider tracheostomy if patient unable to wean from the ventilator. O2 Sats - Monitor for hypoxemia Goal of end tital CO2 = 35-40 Follow ABGs - Lung sounds - CTA Pulmonary toilet - L&S. Bronchodilators - Breathing treatments - duonebs. Chest X-Ray results - minimal bibasilar dependent airspace disease. Stable. Sputum culture - echoli Antibiotics - Rocephin IV VAP protocol in place - Labs tomorrow Chest X-Ray daily GASTROINTESTINAL: Diet - Jevity at 60 ml/hr. TF - minimal residuals Bowel sounds - + x 4 quads Bowel regimen - Colace. MOM. Lactulose. Bisacodyl PA LBM - 11/23 GI open J tube RENAL / URINARY: Strict I&O - +883 BUN / creat 19 / 0.45 Maintain charles for strict diagnosis - Charles in place to bedside drainage bag Urine culture - neg ENDOCRINE: BGM - 122 via am labs SSI HEMATOLOGY: H&H 8.5 / 25.7 Continue to monitor for signs and symptoms of bleeding. Evaluate need for IVC filter. Transfuse for < 7.0 Monitor patient for any bleeding complications. Started Lovenox for DVT prophylaxis - okay with neurosurgery INFECTIOUS DISEASE: Follow CBC Monitor for signs and symptoms of infection: WBC - 18.8 Puckett culture today. Provide pt with a line holiday. Remove Central line and A line Low grade fevers Administer antipyretics for temp as needed. IV abx: Rocephin 11/23: Sputum 11/23: Blood - 11/23: Urine: 11/19: Urine - neg 11/15: Sputum - Ecoli 11/15: Blood - NEG 11/13: CSF - NEG Monitor for pneumonia evolution with repeat chest X-Rays as needed. Maintain vigorous aseptic care of central line to avoid blood stream infections. Consider a consult to ID for further management IV LINES: 11/13: Ventric 11/13: ETT 11/13: OGT 11/13: R IJ TLC (DC) 11/13: L Rad Nelia (DC) 11/19: Charles PROPHYLAXIS: VAP - chlorhexidine mouth care in place GI - Pepcid BID po DVT - Mechanical VTE with SCDs. Chemical management with Lovenox 30 BID SQ - cleared and okay with neurosurgery SKIN: Warm and dry Bilateral orbital ecchymosis and edema. ACTIVITY: Status - BR PT and OT ordered. CASE MANAGEMENT: Consulted for assist with DC planning. Placement - disposition - TBD. EMOTIONAL SUPPORT: Provided to patient and family. Plan of care discussed. Questions answered to the best of my knowledge. Patient is clearly improving, GCS is 11 T, transfer floor Follow-up albumin and prealbumin levels Start gentle diuresis Problem Qualifiers (1) Skull fractures: (2) Traumatic brain injury: Ayesha Brown MD Dec 03, 2016 13:34
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
[2016-12-03] MEDS: MAGNESIUM HYDROXIDE SUSP 30 ML CUP PO SCH (21:00)
[2016-12-03] MEDS: traZODone HCL 50 MG TAB PO SCH (21:12)
[2016-12-04] VITALS (14 sets, daily range): BP systolic 104–163; BP diastolic 60–84; PULSE 78–96; RESP 19–24; TEMP 97.9–99.7; O2SAT 95–100
[2016-12-04] MEDS: LACTATED RINGER'S 1000 ML INJ 1,000 ML IV SCH ×3 (00:45→22:21)
[2016-12-04] MEDS: SODIUM CHLORIDE 1 GRAM TAB PO SCH ×4 (02:00→22:20)
[2016-12-04 05:51] LABS: AUTOMATED NEUTROPHIL # 6.6 TH/MM3 (1.8-7.7); BASOPHIL # 0.1 TH/MM3 (0-0.2); BASOPHIL % 0.7 % (0.0-2.0); EOSINOPHIL # 0.1 TH/MM3 (0-0.4); EOSINOPHIL % 1.4 % (0.0-4.0); HEMATOCRIT 29.2 % (39.0-51.0); HEMOGLOBIN 9.7 GM/DL (13.0-17.0); LYMPH % 27.5 % (9.0-44.0); MEAN CELL VOLUME 99.6 FL (80.0-100.0); MEAN CORPUSCULAR HEMOGLOBIN 33.2 PG (27.0-34.0); MEAN CORPUSCULAR HGB CONC 33.3 % (32.0-36.0); MEAN PLATELET VOLUME 7.9 FL (7.0-11.0); MONO % 9.3 % (0.0-8.0); NEUT % 61.1 % (16.0-70.0); PLATELET COUNT 333 TH/MM3 (150-450); RED BLOOD COUNT 2.93 MIL/MM3 (4.50-5.90); RED CELL DISTRIBUTION WIDTH 17.7 % (11.6-17.2); WHITE BLOOD COUNT 10.8 TH/MM3 (4.0-11.0)
[2016-12-04] MEDS: ARTIFICIAL TEARS OPTH SOLN 15 ML BTL EACH EYE SCH ×3 (06:00→22:22)
[2016-12-04] MEDS: CHLORHEXIDINE 0.12% (ORAL KIT) 15 ML CUP MT SCH ×2 (08:07→22:23)
[2016-12-04] MEDS: FAMOTIDINE 20 MG TAB NG SCH ×2 (08:08→22:21)
[2016-12-04] MEDS: LACTULOSE SYRUP 20 GM/30 ML CUP PO SCH (08:08)
[2016-12-04] MEDS: ENOXAPARIN SODIUM 30 MG/0.3 ML SYRINGE SQ SCH ×2 (08:08→22:22)
[2016-12-04] MEDS: SODIUM CHLORIDE 0.9% FLUSH 10 ML FLUSH IV FLUSH SCH ×2 (08:08→21:00)
[2016-12-04] MEDS: VALPROIC ACID SYRUP 250 MG/5 ML UDC PO SCH ×2 (08:08→22:21)
[2016-12-04] MEDS: METOPROLOL TARTRATE 25 MG TAB PO SCH ×2 (08:08→22:22)
[2016-12-04] MEDS: SENNOSIDES SYRUP 8.8 MG/5 ML CUP PO SCH (08:08)
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
[2016-12-04 08:42] LABS: ALBUMIN 2.1 GM/DL (3.4-5.0); BICARBONATE 28.7 MEQ/L (21.0-32.0); CALCIUM 8.5 MG/DL (8.5-10.1); CREATININE 0.46 MG/DL (0.60-1.30)
[2016-12-04] MEDS: hydrALAZINE HCL 25 MG TAB PO SCH ×2 (09:33→22:21)
[2016-12-04] MEDS: FUROSEMIDE 40 MG/5 ML UNIT DOSE CUP NG SCH (09:48)
[2016-12-04] MEDS: POTASSIUM CHLORIDE 25 MEQ EFFERVESCENT TAB NG SCH (10:17)
[2016-12-04] MEDS: fentaNYL 50 MCG/HR PATCH T-DERMAL SCH (10:56)
[2016-12-04] MEDS: REMOVE OLD DURAGESIC (FENTANYL) PATCH T-DERMAL SCH (10:56)
--- NOTE | 2016-12-04 15:06 | HHI.CCPN ---
Subjective Brief History MES[place]ERO APACHE: This is a 61-year-old male found in his apartment face down with massive injuries to the head brought in as priority 1 trauma alert and resuscitated. He is taken immediately to CT scan after resuscitation. He is found to have massive intracranial injuries including skull fracture, bleeding in the right cerebellar hemisphere, compression of the flow of the cerebrospinal fluid, hemorrhages in the cerebral area and some air. He also has a large subdural hematoma on the right. The patient is taken immediately to the operating room and he will come to the ICU after the decompression. Discussed this with Dr. Grimm. 24 Hour Review/Hospital Course 11/14/16 Patient underwent craniotomy and evacuation of the right posterior fossa hematoma In addition patient has a tear in the transfer sinus which is now clotted off Patient is now any ICU and remains on neuroprotective measures including Propofol/fentanyl 3% saline with sodium around 155 mEq per liter [facility] Maikel Coma Scale remains 3-4 ICP 12 mmHg and controllable Centra perfusion pressure has been adequate without any administration of vasopressors based on measurements of mean arterial pressure 11/15/16 Patient is neurologically somewhat improved and Maikel Coma Scale is about 6-7 Patient doesn't follow commands however he opens his eyes and moves all 4 extremities spontaneously This is a significant improvement in last 24 hours Remains off propofol Sodium adequate and with normal ICP hypertonic saline has been discontinued as well Repeat CT scan of the brain tomorrow 11/16/16 Patient with severe brain injuries on repeat CT scan he is residual subdural and subarachnoid hemorrhage intraparenchymal hemorrhages and brain contusions Moves all 4 extremities when now sedation indication Maikel Coma Scale around 5 Patient remains on neuroprotective measures including propofol and fentanyl ICP 8-12 mmHg 11/17/16 Neurologic status unchanged On sedation vacation patient is moving all 4 extremities but doesn't open eyes or tracs ICP remains low around 8-12 mmHg Patient remains on small dose propofol and fentanyl for pain Will start on antihypertensive some further decrease the propofol 11/18/16 sedation holiday-open eyes,moving all 4 extremities ICP/CPP-wnl propofol/fentanyl 11/19/16 open eyes,moving all 4 extremities on sedation holiday ICP/CPP-controlled tolerating tube feeds started propranolol 11/20/2016 PTD: 7 Weaning sedation slowly. Opens eyes. Pt moves all extremities, but not yet to command. ICP = 1-7, He had an episode overnight were ICP increased to 16 with turning for a linen change. Discussed with daughter at bedside. 11/21/16 No change in neurologic status On sedation vacation patient moves all 4 extremities but doesn't follow any commands and does not track ICP remains low Withdrawal of hypertonic saline resulted in increase it of intracranial pressure so this has been restarted Neuroprotective measures including Propofol/fentanyl Hypertonic saline at 3% 20 cc an hour At this point there is no where to go as far as decreasing any of these and we' ll just leave everything is a distal tomorrow and then try to decrease hypertonic saline again 11/22/16 No change in neurologic status Place patient on sedation vacation from propofol and he is opening eyes but doesn't track does not follow any commands ICP remains low and patient has responding central perfusion pressure which is adequate in the range of mean arterial pressure Hypertensive and therefore placed on Lopressor and hydralazine This patient has been in the unit for 9 days and at this point decision-making comes to tracheostomy and PEG and I discussed this with his daughter Depending on patient's progress in next 24-48 hrs, patient will likely be scheduled for tracheostomy 11/23/2016 PTD: 10 Patient remains sedated and mechanically ventilated. Opens eyes. Spoke with daughter at bedside to prepare for trach placement either today or tomorrow. Additionally patient will need PEG placement. 11/24/16 With sedation vacation patient is moving all 4 extremities opening eyes and according to the nurse tracking which is a great improvement Maikel Coma Scale on sedation medications about 7 or patient doesn't follow commands Level of consciousness does not allow extubation therefore tracheostomy has been performed at the bedside today Bilateral good breath sounds and good inspiratory effort I'll try to wean patient off the ventilator in next few days the tracheostomy is in place Abdomen is soft with active bowel sounds and patient is scheduled to have PEG today Medical critical care help is greatly appreciated and adjustment of antibiotics appropriate 11/25/16 No change in current status Patient is opening eyes moving all 4 extremities and apparently tracking occasionally Underwent successful tracheostomy and is gone be weaned off the ventilator if the next few days PEG could not be performed due to 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 and therefore I'll take the patient today for open jejunostomy placement Abdomen soft Bilateral breath sounds slightly diminished over the bases Hemodynamically remains stable 11/26 s/p J tube and tracheostomy opening eyes at times HD stable ICP stable 11/27 episode of vomiting yesterday EVD unclamped after ICP increase after rounds NS clamped again ICP <20 eyes open 11/29 Patient's eyes open, he is clearly tracking, he's tolerating CPAP, his abdomen is soft no episodes of vomiting had BMs, the EVD has been removed by neurosurgery 11/30/16 Patient is doing better he is opening eyes and seems to be communicating Moving both legs and both arms but not following any commands Remains on respirator and as of tomorrow we'll start CPAP trials to hopefully separate the patient from the ventilator and next few days Abdomen is soft feeding tube is working well There was some drainage from the feeding tube incision site in the midline and Dr. Rachel varghese as removed some of the stitches Now there is bleeding from the edge of the skin and I controlled it with several Prolene stitches and washed out and sterilely approximated the incision 12/01/16 H and more awake and alert trying to communicate and actually succeeding Now patient is following commands and moving all 4 extremities and is more awake than yesterday Considering the patient has tracheostomy has been liberated from the ventilator and is currently in T piece to be changed to trach collar Secretions and minimal Abdomen is soft feeding jejunostomy is in place and can be used for feedings. Minimal drainage from the incision which is serous and no infections noted Hemoglobin remains stable Provided patient states an trach collar he can be transferred to rehabilitation as soon as a bed is available or to the floor close the nursing station 12/02/16 awake tracking with his eyes Minimal secretions Tolerating trach collar Transfer to floor 12/03 Mental status continues to improve Large amount of serous fluid came out from the abdominal incision last night This scan of the abdomen and pelvis shows anasarca with ascites in the abdomen minimal Amount of secretions continues to tolerate trach collar 12/04/16 Patient is significantly improved at this time He is awake alert and following commands trying to communicate Patient tolerated by mouth diet and passed swallow study This point patient needs aggressive physical and occupational therapy Transfer patient to the floor and eventually to the rehabilitation or long-term Objective Vital Signs Date Time Temp Pulse Resp B/P (MAP) Pulse Ox O2 Delivery O2 Flow Rate FiO2 12/04/16 14:00 84 12/04/16 12:00 97.9 24 163/84 (110) 99 12/04/16 08:44 T-Piece 28 12/03/16 21:49 6.00 Intake and Output 12/04/16 12/04/16 12/05/16 08:00 16:00 00:00 Intake Total 690 ml Output Total 1050 ml Balance -360 ml Result Diagram: 12/04/16 0528 12/04/1628 Exam SPA CONSULTANT Awake alert to disoriented but communicating and following commands Hemodynamic/Cardiac Hemodynamically stable Pulmonary/Respiratory Bilateral breath sounds Abdomen/GI Nutrition Tolerates by mouth diet after passing swallowing study I reviewed the CT scan done 2 days ago. Patient has anasarca and hereby ascitic fluid in the abdomen which is occasionally leaking through the small mid abdominal incision as a result off feeding jejunostomy. At this point there is no way to prevent this and the patient will leak fluid till anasarca/ascites resolve Otherwise incision is clean and feeding tube is working fine Vascular Central Line Catheter Date of Insertion: Nov 13, 2016 Line: Central Venous Catheter Side: Right Location: Internal Assessment and Plan Assessment: (1) Skull fractures ICD Code: S02.91XA - Unspecified fracture of skull, initial encounter for closed fracture Status: Acute (2) Intracranial hemorrhage ICD Code: I62.9 - Nontraumatic intracranial hemorrhage, unspecified Status: Acute (3) Major neurocognitive disorder as late effect of traumatic brain injury without behavioral disturbance ICD Code: S06.9X9S - Unspecified intracranial injury with loss of consciousness of unspecified duration, sequela; F02.80 - Dementia in other diseases classified elsewhere without behavioral disturbance Status: Acute (4) Traumatic brain injury ICD Code: S06.9X9A - Unspecified intracranial injury with loss of consciousness of unspecified duration, initial encounter Status: Acute Plan [place] APACHE: This is a 61-year-old male who was found down at home with obvious scalp laceration and raccoon eyes. GCS 5-6. Obtunded. Intubated in the ED. + Cannabis. INJURIES: Skull fx SDH (temporal and parietal) LEFT cerebral contusions (w/compression of 4th ventricle) RIGHT temporal contusion LEFT parietal lobe contusion Procedures: 11/13: Intubated in the ED 11/13: Suboccipital craniectomy Consults: [facility]. Neurosurgery. Rehabilitation medicine. Neuropsych. Case management. Assessment and plan by system: NEUROLOGICAL: 11/13: Suboccipital craniectomy Sedated with propofol gtt. Opens eyes Moves all extremities well, but not yet to command. Sedation vacations daily to assess weaning capability. Pt is sedated with a RASS score of -2 Provide analgesia for comfort and pain. Fentanyl 50 mg patch. Percocet 5 mg every 6 hours PRN Serial neuro checks. 11/16: CT brain: Stable post OR - Interval left occipital craniectomy with pneumocephalus, intraparenchymal hemorrhage, subdural hemorrhage and subarachnoid hemorrhage 11/23: Ct brain - stable EVD - Ventriculostomy ICP = 5-7. Seizure precautions. Seizure prophylaxis - IV Keppra 3% saline - discontinued. NA = 143 HOB elevated 30 degrees - + peripheral pulses x 4 extremities. CARDIOVASCULAR: HR - 60-66 sinus bradycardia BP - 152/81 Continually monitor for hemodynamic instability (shock and hypotension). BP meds - Lopressor q 6h. Hydralazine 10 mg q 6h. Volume status - +883. Follow CMP - Electrolyte status - Electrolyte protocol - in place RESPIRATORY: 11/13: Intubated in the ED Vent settings- 500 / 14 / 30% / 1.0 / +5 Sats = 97% Increase PEEP carefully (to assist in oxygenation by recruiting alveoli.) Weaning - will attempt CPAP trials once ICPs are better controlled and patient is more awake and following commands Consider tracheostomy if patient unable to wean from the ventilator. O2 Sats - Monitor for hypoxemia Goal of end tital CO2 = 35-40 Follow ABGs - Lung sounds - CTA Pulmonary toilet - L&S. Bronchodilators - Breathing treatments - duonebs. Chest X-Ray results - minimal bibasilar dependent airspace disease. Stable. Sputum culture - echoli Antibiotics - Rocephin IV VAP protocol in place - Labs tomorrow Chest X-Ray daily GASTROINTESTINAL: Diet - Jevity at 60 ml/hr. TF - minimal residuals Bowel sounds - + x 4 quads Bowel regimen - Colace. MOM. Lactulose. Bisacodyl [place] LBM - 11/23 GI open J tube RENAL / URINARY: Strict I&O - +883 BUN / creat 19 / 0.45 Maintain charles for strict diagnosis - Charles in place to bedside drainage bag Urine culture - neg ENDOCRINE: BGM - 122 via am labs SSI HEMATOLOGY: H&H 8.5 / 25.7 Continue to monitor for signs and symptoms of bleeding. Evaluate need for IVC filter. Transfuse for < 7.0 Monitor patient for any bleeding complications. Started Lovenox for DVT prophylaxis - okay with neurosurgery INFECTIOUS DISEASE: Follow CBC Monitor for signs and symptoms of infection: WBC - 18.8 [place] culture today. Provide pt with a line holiday. Remove Central line and A line Low grade fevers Administer antipyretics for temp as needed. IV abx: Rocephin 11/23: Sputum 11/23: Blood - 11/23: Urine: 11/19: Urine - neg 11/15: Sputum - Ecoli 11/15: Blood - NEG 11/13: CSF - NEG Monitor for pneumonia evolution with repeat chest X-Rays as needed. Maintain vigorous aseptic care of central line to avoid blood stream infections. Consider a consult to ID for further management IV LINES: 11/13: Ventric 11/13: ETT 11/13: OGT 11/13: R IJ TLC (DC) 11/13: L Rad [place] (DC) 11/19: Charles PROPHYLAXIS: VAP - chlorhexidine mouth care in place GI - Pepcid BID po DVT - Mechanical VTE with SCDs. Chemical management with Lovenox 30 BID SQ - cleared and okay with neurosurgery SKIN: Warm and dry Bilateral orbital ecchymosis and edema. ACTIVITY: Status - BR PT and OT ordered. CASE MANAGEMENT: Consulted for assist with DC planning. Placement - disposition - TBD. EMOTIONAL SUPPORT: Provided to patient and family. Plan of care discussed. Questions answered to the best of my knowledge. Patient is clearly improving, GCS is 11 T, transfer floor Follow-up albumin and prealbumin levels Start gentle diuresis Problem Qualifiers (1) Skull fractures: (2) Traumatic brain injury: Tayler Hitchcock MD Dec 04, 2016 15:06
[2016-12-04] MEDS: MAGNESIUM HYDROXIDE SUSP 30 ML CUP PO SCH (21:00)
[2016-12-04] MEDS: traZODone HCL 50 MG TAB PO SCH (22:22)
[2016-12-05] VITALS (8 sets, daily range): BP systolic 122–170; BP diastolic 73–87; PULSE 72–82; RESP 17–19; TEMP 95.8–99; O2SAT 98–100
[2016-12-05] MEDS: SODIUM CHLORIDE 1 GRAM TAB PO SCH ×4 (02:16→23:02)
[2016-12-05] MEDS: ARTIFICIAL TEARS OPTH SOLN 15 ML BTL EACH EYE SCH ×3 (06:23→23:03)
[2016-12-05] MEDS: METOPROLOL TARTRATE 25 MG TAB PO SCH ×2 (09:39→23:02)
[2016-12-05] MEDS: FAMOTIDINE 20 MG TAB NG SCH ×2 (09:39→23:02)
[2016-12-05] MEDS: ENOXAPARIN SODIUM 30 MG/0.3 ML SYRINGE SQ SCH ×2 (09:40→23:02)
[2016-12-05] MEDS: POTASSIUM CHLORIDE 25 MEQ EFFERVESCENT TAB NG SCH (09:40)
[2016-12-05] MEDS: CHLORHEXIDINE GLUCONATE 0.12% 15 ML CUP SWISH-SPIT SCH ×2 (09:40→15:48)
[2016-12-05] MEDS: FUROSEMIDE 40 MG/5 ML UNIT DOSE CUP NG SCH (09:41)
[2016-12-05] MEDS: SENNOSIDES SYRUP 8.8 MG/5 ML CUP PO SCH (09:41)
[2016-12-05] MEDS: VALPROIC ACID SYRUP 250 MG/5 ML UDC PO SCH ×2 (09:41→23:02)
[2016-12-05] MEDS: SODIUM CHLORIDE 0.9% FLUSH 10 ML FLUSH IV FLUSH SCH ×2 (09:43→23:03)
--- NOTE | 2016-12-05 12:29 | HHI.PR ---
Subjective Subjective Notes Awake and calm Following commands Objective Vitals/I&O Vital Signs Date Time Temp Pulse Resp B/P (MAP) Pulse Ox O2 Delivery O2 Flow Rate FiO2 12/05/16 09:30 98 Trach Collar 28 12/05/16 08:00 95.8 82 17 170/86 (114) 12/05/16 02:04 6.00 Labs Date/Time Source Procedure Growth Status 11/24/16 06:00 Blood Peripheral Aerobic Blood Culture - Final NO GROWTH IN 5 DAYS Complete 11/24/16 06:00 Blood Peripheral Anaerobic Blood Culture - Final NO GROWTH IN 5 DAYS Complete 11/13/16 14:31 Cerebral Spinal Fluid Shunt Fluid Fungal Smear - Final NO FUNGAL ELEMENTS SEEN. Resulted 11/13/16 14:31 Cerebral Spinal Fluid Shunt Fluid Fungal Culture - Preliminary NO GROWTH IN 3 WEEKS Resulted 11/23/16 18:00 Sputum Endotracheal Gram Stain - Final Complete 11/23/16 18:00 Sputum Culture - Final Escherichia Coli Complete 11/23/16 18:00 Urine Catheterized Urine Urine Culture - Final NO GROWTH IN 48 HOURS. Complete Radiology Last Impressions Consultation 12/03/16 0000 Signed Impressions: Service Date/Time: November 00:00 - CONCLUSION: Insufficient ascitic volume for safe paracentesis. Andrea Glez Jr., MD Abdomen/Pelvis CT 12/02/16 0000 Signed Impressions: Service Date/Time: Friday, December 02, 2016 18:58 - CONCLUSION: 1. Status post placement of a gastrostomy tube with a feeding tube in the small bowel. 2. There is a small amount of ascites in the upper abdomen. 3. Bilateral pleural effusions with bibasilar atelectasis. 4. Anasarca. 5. Stable hepatic cysts Haris Lockwood MD Chest X-Ray 12/01/16 0600 Signed Impressions: Service Date/Time: Thursday, December 01, 2016 05:04 - CONCLUSION: Some interval worsening in aeration. Fabien Leon MD Abdomen X-Ray 12/01/16 0000 Signed Impressions: Service Date/Time: Thursday, December 01, 2016 08:13 - CONCLUSION: 1. No evidence of obstruction. Kam Menezes MD Head CT 11/28/16 0800 Signed Impressions: Service Date/Time: Monday, November 28, 2016 08:34 - CONCLUSION: 1. The patient's subdural hemorrhage and intraparenchymal hemorrhage all appear to be undergoing the expected evolution. There is significant decrease in the amount of cerebral edema. 2. The ventricles are normal in size. The ventriculostomy is in good position. Chuy Fitzpatrick MD Maxillofacial CT 11/13/16 1316 Signed Impressions: Service Date/Time: Sunday, November 13, 2016 13:11 - CONCLUSION: Air-fluid level with admixture of air and fluid in the left sphenoid sinus compartment. Otherwise negative. Acute fracture is not identified. Yariel Odell MD Thoracic Spine CT 11/13/[id number] Signed Impressions: Service Date/Time: Sunday, November 13, 2016 13:15 - CONCLUSION: No fracture or subluxation. Bobby Rasmussen MD Lumbar Spine CT 11/13/[id number] Signed Impressions: Service Date/Time: Sunday, November 13, 2016 13:15 - CONCLUSION: 1. No acute fracture. Spinal canal and neural foramen appear to be adequate throughout. 2. Dextroscoliosis of the lumbar spine with mild associated degenerative changes 3. Diverticular disease of the sigmoid without diverticulitis Aftab Cramer MD Chest CT 11/13/16 131 Signed Impressions: Service Date/Time: Sunday, November 13, 2016 13:17 - CONCLUSION: 1. Negative CT scan of the thorax. Chuy Fitzpatrick MD Cervical Spine CT 11/13/16 1311 Signed Impressions: Service Date/Time: Sunday, November 13, 2016 13:13 - CONCLUSION: 1. No acute fracture the cervical spine identified. There are degenerative changes as above. 2. There is fracture of the right side of the occipital bone. There is subdural hematoma in the posterior fossa on the right and intraparenchymal hemorrhage within the left cerebellar hemisphere. This was assessed by CT imaging of the brain. Chuy Fitzpatrick MD Narrative Exam GENERAL: 61-year-old well-nourished, well developed male lying in bed. SKIN: Warm and dry. HEAD: Atraumatic. Normocephalic. EYES: PERRL. ENT: No nasal bleeding or discharge. Mucous membranes pink and moist. NECK: Trachea midline. No JVD. BOARD MIXER TENDER in place secure to T-collar. CARDIOVASCULAR: Regular rate and rhythm. RESPIRATORY: No accessory muscle use. Lungs clear to auscultation. Breath sounds equal bilaterally. GASTROINTESTINAL: Abdomen soft, non-tender, nondistended. + BS. J-tube in LUQ. MUSCULOSKELETAL: Extremities without cyanosis, or edema. MAEW. + perfused NEUROLOGICAL: Awake and alert. Follows commands. A/P Assessment and Plan ZUNI: Found down at home with obvious scalp lac and raccoon eyes. GCS 5-6. INJURIES: Skull fx SDH (temporal and parietal) LEFT cerebral contusions (w /compression of 4th ventricle) RIGHT temporal contusion LEFT parietal lobe contusion 11/13: Intubated in the ED 11/13: Suboccipital craniectomy with ventric placement 11/24: BOARD MIXER TENDER placement 11/25: Open jejunostomy placement 11/28: Ventriculostomy removed Diet:Jevity @ 60- Soft diet, Enlive supplements. ST following Pulm: T-collar. Nebs. Pain: Fentanyl patch. Roxicodone. Activity: OOB. PT x 7 days and OT ordered. GI: Pepcid Bowel: Senna. MOM. Bisacodyl [place] PRN. LBM: 12/05 DVT: SCD's. Lovenox 30 BID Skull fx, SDH, LEFT cerebral contusions, RIGHT temporal contusion, LEFT parietal lobe contusion Neurosurgery consulted 11/13: Suboccipital craniectomy with ventric placement 11/28: Ventriculostomy removed Trazodone 50 HS Valproic [address] cognitive and swallow eval Lovenox OOB QD- PT ordered x 7 days/ week Respiratory failure Supportive care 11/24: BOARD MIXER TENDER placement 11/25: Open jejunostomy placement Oral care BID Suction PRN Tele Plan to downsize BOARD MIXER TENDER on Wednesday if secretions minimal HTN Lopressor 25mg BID Hydralazine increased to 25mg q8 Lasix 20mg QD KCl 20meq QD Plan of care discussed with RN at bedside. No family present during visit. Case management consulted to assist with discharge planning. Patient is self-pay , [facility] evaluating for possible rehab placement. If [facility] has a [facility] bed available, patient is clear for discharge. Patient may progress well enough with PT to go home with family in the next 1-2 weeks. Deepa Cobian Dec 05, 2016 12:29
--- NOTE | 2016-12-05 12:29 | HHI.PR ---
Subjective Subjective Notes Awake and calm Following commands Objective Vitals/I&O Vital Signs Date Time Temp Pulse Resp B/P (MAP) Pulse Ox O2 Delivery O2 Flow Rate FiO2 12/05/16 09:30 98 Trach Collar 28 12/05/16 08:00 95.8 82 17 170/86 (114) 12/05/16 02:04 6.00 Labs Date/Time Source Procedure Growth Status 11/24/16 06:00 Blood Peripheral Aerobic Blood Culture - Final NO GROWTH IN 5 DAYS Complete 11/24/16 06:00 Blood Peripheral Anaerobic Blood Culture - Final NO GROWTH IN 5 DAYS Complete 11/13/16 14:31 Cerebral Spinal Fluid Shunt Fluid Fungal Smear - Final NO FUNGAL ELEMENTS SEEN. Resulted 11/13/16 14:31 Cerebral Spinal Fluid Shunt Fluid Fungal Culture - Preliminary NO GROWTH IN 3 WEEKS Resulted 11/23/16 18:00 Sputum Endotracheal Gram Stain - Final Complete 11/23/16 18:00 Sputum Culture - Final Escherichia Coli Complete 11/23/16 18:00 Urine Catheterized Urine Urine Culture - Final NO GROWTH IN 48 HOURS. Complete Radiology Last Impressions Consultation 12/03/16 0000 Signed Impressions: Service Date/Time: November 00:00 - CONCLUSION: Insufficient ascitic volume for safe paracentesis. Andrea Glez Jr., MD Abdomen/Pelvis CT 12/02/16 0000 Signed Impressions: Service Date/Time: Friday, December 02, 2016 18:58 - CONCLUSION: 1. Status post placement of a gastrostomy tube with a feeding tube in the small bowel. 2. There is a small amount of ascites in the upper abdomen. 3. Bilateral pleural effusions with bibasilar atelectasis. 4. Anasarca. 5. Stable hepatic cysts Haris Lockwood MD Chest X-Ray 12/01/16 0600 Signed Impressions: Service Date/Time: Thursday, December 01, 2016 05:04 - CONCLUSION: Some interval worsening in aeration. Fabien Leon MD Abdomen X-Ray 12/01/16 0000 Signed Impressions: Service Date/Time: Thursday, December 01, 2016 08:13 - CONCLUSION: 1. No evidence of obstruction. Kam Menezes MD Head CT 11/28/16 0800 Signed Impressions: Service Date/Time: Monday, November 28, 2016 08:34 - CONCLUSION: 1. The patient's subdural hemorrhage and intraparenchymal hemorrhage all appear to be undergoing the expected evolution. There is significant decrease in the amount of cerebral edema. 2. The ventricles are normal in size. The ventriculostomy is in good position. Chuy Fitzpatrick MD Maxillofacial CT 11/13/16 1316 Signed Impressions: Service Date/Time: Sunday, November 13, 2016 13:11 - CONCLUSION: Air-fluid level with admixture of air and fluid in the left sphenoid sinus compartment. Otherwise negative. Acute fracture is not identified. Yariel Odell MD Thoracic Spine CT 11/13/161310 Signed Impressions: Service Date/Time: Sunday, November 13, 2016 13:15 - CONCLUSION: No fracture or subluxation. Bobby Rasmussen MD Lumbar Spine CT 11/13/161310 Signed Impressions: Service Date/Time: Sunday, November 13, 2016 13:15 - CONCLUSION: 1. No acute fracture. Spinal canal and neural foramen appear to be adequate throughout. 2. Dextroscoliosis of the lumbar spine with mild associated degenerative changes 3. Diverticular disease of the sigmoid without diverticulitis Aftab Cramer MD Chest CT 11/13/16 131 Signed Impressions: Service Date/Time: Sunday, November 13, 2016 13:17 - CONCLUSION: 1. Negative CT scan of the thorax. Chuy Fitzpatrick MD Cervical Spine CT 11/13/16 1311 Signed Impressions: Service Date/Time: Sunday, November 13, 2016 13:13 - CONCLUSION: 1. No acute fracture the cervical spine identified. There are degenerative changes as above. 2. There is fracture of the right side of the occipital bone. There is subdural hematoma in the posterior fossa on the right and intraparenchymal hemorrhage within the left cerebellar hemisphere. This was assessed by CT imaging of the brain. Chuy Fitzpatrick MD Narrative Exam GENERAL: 61-year-old well-nourished, well developed male lying in bed. SKIN: Warm and dry. HEAD: Atraumatic. Normocephalic. EYES: PERRL. ENT: No nasal bleeding or discharge. Mucous membranes pink and moist. NECK: Trachea midline. No JVD. BAG MACHINE TENDER in place secure to T-collar. CARDIOVASCULAR: Regular rate and rhythm. RESPIRATORY: No accessory muscle use. Lungs clear to auscultation. Breath sounds equal bilaterally. GASTROINTESTINAL: Abdomen soft, non-tender, nondistended. + BS. J-tube in LUQ. MUSCULOSKELETAL: Extremities without cyanosis, or edema. MAEW. + perfused NEUROLOGICAL: Awake and alert. Follows commands. A/P Assessment and Plan [place]: Found down at home with obvious scalp lac and raccoon eyes. GCS 5-6. INJURIES: Skull fx SDH (temporal and parietal) LEFT cerebral contusions (w /compression of 4th ventricle) RIGHT temporal contusion LEFT parietal lobe contusion 11/13: Intubated in the ED 11/13: Suboccipital craniectomy with ventric placement 11/24: BAG MACHINE TENDER placement 11/25: Open jejunostomy placement 11/28: Ventriculostomy removed Diet:Jevity @ 61- Soft diet, Enlive supplements. ST following Pulm: T-collar. Nebs. Pain: Fentanyl patch. Roxicodone. Activity: OOB. PT x 7 days and OT ordered. GI: Pepcid Bowel: Senna. MOM. Bisacodyl [place] PRN. LBM: 12/05 DVT: SCD's. Lovenox 30 BID Skull fx, SDH, LEFT cerebral contusions, RIGHT temporal contusion, LEFT parietal lobe contusion Neurosurgery consulted 11/13: Suboccipital craniectomy with ventric placement 11/28: Ventriculostomy removed Trazodone 50 HS Valproic [address] cognitive and swallow eval Lovenox OOB QD- PT ordered x 7 days/ week Respiratory failure Supportive care 11/24: BAG MACHINE TENDER placement 11/25: Open jejunostomy placement Oral care BID Suction PRN Tele Plan to downsize BAG MACHINE TENDER on Wednesday if secretions minimal HTN Lopressor 25mg BID Hydralazine increased to 25mg q8 Lasix 20mg QD KCl 20meq QD Plan of care discussed with RN at bedside. No family present during visit. Case management consulted to assist with discharge planning. Patient is self-pay , [facility] evaluating for possible rehab placement. If [facility] has a [facility] bed available, patient is clear for discharge. Patient may progress well enough with PT to go home with family in the next 1-2 weeks. Deepa Cobian Dec 05, 2016 12:29
--- NOTE | 2016-12-05 12:29 | HHI.PR ---
Subjective Subjective Notes Awake and calm Following commands Objective Vitals/I&O Vital Signs Date Time Temp Pulse Resp B/P (MAP) Pulse Ox O2 Delivery O2 Flow Rate FiO2 12/05/16 09:30 98 Trach Collar 28 12/05/16 08:00 95.8 82 17 170/86 (114) 12/05/16 02:04 6.00 Labs Date/Time Source Procedure Growth Status 11/24/16 06:00 Blood Peripheral Aerobic Blood Culture - Final NO GROWTH IN 5 DAYS Complete 11/24/16 06:00 Blood Peripheral Anaerobic Blood Culture - Final NO GROWTH IN 5 DAYS Complete 11/13/16 14:31 Cerebral Spinal Fluid Shunt Fluid Fungal Smear - Final NO FUNGAL ELEMENTS SEEN. Resulted 11/13/16 14:31 Cerebral Spinal Fluid Shunt Fluid Fungal Culture - Preliminary NO GROWTH IN 3 WEEKS Resulted 11/23/16 18:00 Sputum Endotracheal Gram Stain - Final Complete 11/23/16 18:00 Sputum Culture - Final Escherichia Coli Complete 11/23/16 18:00 Urine Catheterized Urine Urine Culture - Final NO GROWTH IN 48 HOURS. Complete Radiology Last Impressions Consultation 12/03/16 0000 Signed Impressions: Service Date/Time: November 00:00 - CONCLUSION: Insufficient ascitic volume for safe paracentesis. Andrea Glez Jr., MD Abdomen/Pelvis CT 12/02/16 0000 Signed Impressions: Service Date/Time: Friday, December 02, 2016 18:58 - CONCLUSION: 1. Status post placement of a gastrostomy tube with a feeding tube in the small bowel. 2. There is a small amount of ascites in the upper abdomen. 3. Bilateral pleural effusions with bibasilar atelectasis. 4. Anasarca. 5. Stable hepatic cysts Haris Lockwood MD Chest X-Ray 12/01/16 0600 Signed Impressions: Service Date/Time: Thursday, December 01, 2016 05:04 - CONCLUSION: Some interval worsening in aeration. Fabien Leon MD Abdomen X-Ray 12/01/16 0000 Signed Impressions: Service Date/Time: Thursday, December 01, 2016 08:13 - CONCLUSION: 1. No evidence of obstruction. Kam Menezes MD Head CT 11/28/16 0800 Signed Impressions: Service Date/Time: Monday, November 28, 2016 08:34 - CONCLUSION: 1. The patient's subdural hemorrhage and intraparenchymal hemorrhage all appear to be undergoing the expected evolution. There is significant decrease in the amount of cerebral edema. 2. The ventricles are normal in size. The ventriculostomy is in good position. Chuy Fitzpatrick MD Maxillofacial CT 11/13/16 1316 Signed Impressions: Service Date/Time: Sunday, November 13, 2016 13:11 - CONCLUSION: Air-fluid level with admixture of air and fluid in the left sphenoid sinus compartment. Otherwise negative. Acute fracture is not identified. Yariel Odell MD Thoracic Spine CT 11/13/161310 Signed Impressions: Service Date/Time: Sunday, November 13, 2016 13:15 - CONCLUSION: No fracture or subluxation. Bobby Rasmussen MD Lumbar Spine CT 11/13/161310 Signed Impressions: Service Date/Time: Sunday, November 13, 2016 13:15 - CONCLUSION: 1. No acute fracture. Spinal canal and neural foramen appear to be adequate throughout. 2. Dextroscoliosis of the lumbar spine with mild associated degenerative changes 3. Diverticular disease of the sigmoid without diverticulitis Aftab Cramer MD Chest CT 11/13/16 131 Signed Impressions: Service Date/Time: Sunday, November 13, 2016 13:17 - CONCLUSION: 1. Negative CT scan of the thorax. Chuy Fitzpatrick MD Cervical Spine CT 11/13/16 1311 Signed Impressions: Service Date/Time: Sunday, November 13, 2016 13:13 - CONCLUSION: 1. No acute fracture the cervical spine identified. There are degenerative changes as above. 2. There is fracture of the right side of the occipital bone. There is subdural hematoma in the posterior fossa on the right and intraparenchymal hemorrhage within the left cerebellar hemisphere. This was assessed by CT imaging of the brain. Chuy Fitzpatrick MD Narrative Exam GENERAL: 61-year-old well-nourished, well developed male lying in bed. SKIN: Warm and dry. HEAD: Atraumatic. Normocephalic. EYES: PERRL. ENT: No nasal bleeding or discharge. Mucous membranes pink and moist. NECK: Trachea midline. No JVD. SHIPFITTER HELPER in place secure to T-collar. CARDIOVASCULAR: Regular rate and rhythm. RESPIRATORY: No accessory muscle use. Lungs clear to auscultation. Breath sounds equal bilaterally. GASTROINTESTINAL: Abdomen soft, non-tender, nondistended. + BS. J-tube in LUQ. MUSCULOSKELETAL: Extremities without cyanosis, or edema. MAEW. + perfused NEUROLOGICAL: Awake and alert. Follows commands. A/P Assessment and Plan [place]': Found down at home with obvious scalp lac and raccoon eyes. GCS 5-6. INJURIES: Skull fx SDH (temporal and parietal) LEFT cerebral contusions (w /compression of 4th ventricle) RIGHT temporal contusion LEFT parietal lobe contusion 11/13: Intubated in the ED 11/13: Suboccipital craniectomy with ventric placement 11/24: SHIPFITTER HELPER placement 11/25: Open jejunostomy placement 11/28: Ventriculostomy removed Diet:Jevity @ 61- Soft diet, Enlive supplements. ST following Pulm: T-collar. Nebs. Pain: Fentanyl patch. Roxicodone. Activity: OOB. PT x 7 days and OT ordered. GI: Pepcid Bowel: Senna. MOM. Bisacodyl [place] PRN. LBM: 12/05 DVT: SCD's. Lovenox 30 BID Skull fx, SDH, LEFT cerebral contusions, RIGHT temporal contusion, LEFT parietal lobe contusion Neurosurgery consulted 11/13: Suboccipital craniectomy with ventric placement 11/28: Ventriculostomy removed Trazodone 50 HS Valproic [address] cognitive and swallow eval Lovenox OOB QD- PT ordered x 7 days/ week Respiratory failure Supportive care 11/24: SHIPFITTER HELPER placement 11/25: Open jejunostomy placement Oral care BID Suction PRN Tele Plan to downsize SHIPFITTER HELPER on Wednesday if secretions minimal HTN Lopressor 25mg BID Hydralazine increased to 25mg q8 Lasix 20mg QD KCl 20meq QD Plan of care discussed with RN at bedside. No family present during visit. Case management consulted to assist with discharge planning. Patient is self-pay , [facility] evaluating for possible rehab placement. If [facility] has a [facility] bed available, patient is clear for discharge. Patient may progress well enough with PT to go home with family in the next 1-2 weeks. Deepa Cobian Dec 05, 2016 12:29
[2016-12-05] MEDS: hydrALAZINE HCL 25 MG TAB PO SCH ×2 (15:48→23:02)
[2016-12-05] MEDS: MAGNESIUM HYDROXIDE SUSP 30 ML CUP PO SCH (21:00)
[2016-12-05] MEDS: traZODone HCL 50 MG TAB PO SCH (23:02)
[2016-12-06] VITALS (8 sets, daily range): BP systolic 114–141; BP diastolic 65–82; PULSE 72–78; RESP 17–18; TEMP 96.8–98.2; O2SAT 96–99
[2016-12-06] MEDS: SODIUM CHLORIDE 1 GRAM TAB PO SCH ×4 (02:34→21:18)
[2016-12-06] MEDS: hydrALAZINE HCL 25 MG TAB PO SCH ×3 (05:58→21:17)
[2016-12-06] MEDS: ARTIFICIAL TEARS OPTH SOLN 15 ML BTL EACH EYE SCH ×3 (05:59→21:18)
--- NOTE | 2016-12-06 06:06 | RADRPT ---
EXAM DATE/TIME: 12/06/2016 05:23 [facility] COMPARISON: CHEST SINGLE AP, December 01, 2016, 5:04. INDICATIONS : Evaluate for infiltrate MEDICAL HISTORY : None. SURGICAL HISTORY : None. ENCOUNTER: Subsequent ACUITY: 2 weeks PAIN SCORE: 7/10 LOCATION: Bilateral chest FINDINGS: The tracheostomy tube is in good position. There is a hand projecting over the right lower chest. Rig ht upper lung is clear. There is hazy density at the left base with silhouetting of the left hemidiap hragm. CONCLUSION: Left base consolidation or atelectasis. Fabien Menjivar MD on December 06, 2016 at 6:03 Board Certified Radiologist. This report was verified electronically.
[2016-12-06] MEDS: FUROSEMIDE 40 MG/5 ML UNIT DOSE CUP NG SCH (09:20)
[2016-12-06] MEDS: VALPROIC ACID SYRUP 250 MG/5 ML UDC PO SCH ×2 (09:21→21:17)
[2016-12-06] MEDS: ENOXAPARIN SODIUM 30 MG/0.3 ML SYRINGE SQ SCH ×2 (09:21→21:17)
[2016-12-06] MEDS: METOPROLOL TARTRATE 25 MG TAB PO SCH ×2 (09:22→21:17)
[2016-12-06] MEDS: FAMOTIDINE 20 MG TAB NG SCH ×2 (09:22→21:17)
[2016-12-06] MEDS: POTASSIUM CHLORIDE 25 MEQ EFFERVESCENT TAB NG SCH (09:22)
[2016-12-06] MEDS: CHLORHEXIDINE GLUCONATE 0.12% 15 ML CUP SWISH-SPIT SCH ×2 (09:22→21:17)
[2016-12-06] MEDS: SENNOSIDES SYRUP 8.8 MG/5 ML CUP PO SCH (09:22)
[2016-12-06] MEDS: SODIUM CHLORIDE 0.9% FLUSH 10 ML FLUSH IV FLUSH SCH ×2 (09:30→21:18)
[2016-12-06] MEDS: oxyCODONE HCL ORAL CONC 5 MG/0.25 ML SYRINGE PO PRN ×2 (10:22→19:31)
--- NOTE | 2016-12-06 12:31 | HHI.PR ---
Subjective Subjective Notes RN reports patient removes cranial helmet when unrestrained Tolerating by mouth diet Objective Vitals/I&O Vital Signs Date Time Temp Pulse Resp B/P (MAP) Pulse Ox O2 Delivery O2 Flow Rate FiO2 12/06/16 12:00 97.3 72 17 114/65 (81) 98 12/06/16 09:30 T-Piece 6.00 28 Humidified Labs Date/Time Source Procedure Growth Status 11/24/16 06:00 Blood Peripheral Aerobic Blood Culture - Final NO GROWTH IN 5 DAYS Complete 11/24/16 06:00 Blood Peripheral Anaerobic Blood Culture - Final NO GROWTH IN 5 DAYS Complete 11/13/16 14:31 Cerebral Spinal Fluid Shunt Fluid Fungal Smear - Final NO FUNGAL ELEMENTS SEEN. Resulted 11/13/16 14:31 Cerebral Spinal Fluid Shunt Fluid Fungal Culture - Preliminary NO GROWTH IN 3 WEEKS Resulted 11/23/16 18:00 Sputum Endotracheal Gram Stain - Final Complete 11/23/16 18:00 Sputum Culture - Final Escherichia Coli Complete 11/23/16 18:00 Urine Catheterized Urine Urine Culture - Final NO GROWTH IN 48 HOURS. Complete Radiology Last Impressions Consultation 12/03/16 0000 Signed Impressions: Service Date/Time: November 00:00 - CONCLUSION: Insufficient ascitic volume for safe paracentesis. Andrea Glez Jr., MD Abdomen/Pelvis CT 12/02/16 0000 Signed Impressions: Service Date/Time: Friday, December 02, 2016 18:58 - CONCLUSION: 1. Status post placement of a gastrostomy tube with a feeding tube in the small bowel. 2. There is a small amount of ascites in the upper abdomen. 3. Bilateral pleural effusions with bibasilar atelectasis. 4. Anasarca. 5. Stable hepatic cysts Haris Lockwood MD Chest X-Ray 12/01/16 0600 Signed Impressions: Service Date/Time: Thursday, December 01, 2016 05:04 - CONCLUSION: Some interval worsening in aeration. Fabien Leon MD Abdomen X-Ray 12/01/16 0000 Signed Impressions: Service Date/Time: Thursday, December 01, 2016 08:13 - CONCLUSION: 1. No evidence of obstruction. Kam Menezes MD Head CT 11/28/16 0800 Signed Impressions: Service Date/Time: Monday, November 28, 2016 08:34 - CONCLUSION: 1. The patient's subdural hemorrhage and intraparenchymal hemorrhage all appear to be undergoing the expected evolution. There is significant decrease in the amount of cerebral edema. 2. The ventricles are normal in size. The ventriculostomy is in good position. Chuy Fitzpatrick MD Maxillofacial CT 11/13/16 1316 Signed Impressions: Service Date/Time: Sunday, November 13, 2016 13:11 - CONCLUSION: Air-fluid level with admixture of air and fluid in the left sphenoid sinus compartment. Otherwise negative. Acute fracture is not identified. Yariel Odell MD Thoracic Spine CT 11/13/161310 Signed Impressions: Service Date/Time: Sunday, November 13, 2016 13:15 - CONCLUSION: No fracture or subluxation. Bobby Rasmussen MD Lumbar Spine CT 11/13/161310 Signed Impressions: Service Date/Time: Sunday, November 13, 2016 13:15 - CONCLUSION: 1. No acute fracture. Spinal canal and neural foramen appear to be adequate throughout. 2. Dextroscoliosis of the lumbar spine with mild associated degenerative changes 3. Diverticular disease of the sigmoid without diverticulitis Aftab Cramer MD Chest CT 11/13/16 1311 Signed Impressions: Service Date/Time: Sunday, November 13, 2016 13:17 - CONCLUSION: 1. Negative CT scan of the thorax. Chuy Fitzpatrick MD Cervical Spine CT 11/13/161 Signed Impressions: Service Date/Time: Sunday, November 13, 2016 13:13 - CONCLUSION: 1. No acute fracture the cervical spine identified. There are degenerative changes as above. 2. There is fracture of the right side of the occipital bone. There is subdural hematoma in the posterior fossa on the right and intraparenchymal hemorrhage within the left cerebellar hemisphere. This was assessed by CT imaging of the brain. Chuy Fitzpatrick MD Narrative Exam GENERAL: 61-year-old well-nourished, well developed male lying in bed. SKIN: Warm and dry. HEAD: Atraumatic. Normocephalic. EYES: PERRL. ENT: No nasal bleeding or discharge. Mucous membranes pink and moist. NECK: Trachea midline. No JVD. AWNING SPREADER in place secure to T-collar. CARDIOVASCULAR: Regular rate and rhythm. RESPIRATORY: No accessory muscle use. Lungs clear to auscultation. Breath sounds equal bilaterally. GASTROINTESTINAL: Abdomen soft, non-tender, nondistended. + BS. J-tube in LUQ. MUSCULOSKELETAL: Extremities without cyanosis, or edema. MAEW. + perfused NEUROLOGICAL: Awake and alert. Follows commands. A/P Assessment and Plan [place]: Found down at home with obvious scalp lac and raccoon eyes. GCS 5-6. INJURIES: Skull fx SDH (temporal and parietal) LEFT cerebral contusions (w /compression of 4th ventricle) RIGHT temporal contusion LEFT parietal lobe contusion 11/13: Intubated in the ED 11/13: Suboccipital craniectomy with ventric placement 11/24: AWNING SPREADER placement 11/25: Open jejunostomy placement 11/28: Ventriculostomy removed Diet:Jevity @ 61- Soft diet, Enlive supplements. ST following. Changed TF to nocturnal feeds with soft diet during the day Pulm: T-collar. Nebs. Pain: Fentanyl patch. Roxicodone. Activity: OOB. PT x 7 days and OT ordered. Ambulating with PT. GI: Pepcid Bowel: Senna. MOM. Bisacodyl [place] PRN. LBM: 12/05 DVT: SCD's. Lovenox 30 BID Skull fx, SDH, LEFT cerebral contusions, RIGHT temporal contusion, LEFT parietal lobe contusion Neurosurgery consulted 11/13: Suboccipital craniectomy with ventric placement 11/28: Ventriculostomy removed Trazodone 50 HS Valproic [address] cognitive and swallow eval Lovenox OOB QD- PT ordered x 7 days/ week Respiratory failure Supportive care 11/24: AWNING SPREADER placement 11/25: Open jejunostomy placement Oral care BID Suction PRN Tele Plan to downsize AWNING SPREADER tomorrow HTN Lopressor 25mg BID Hydralazine 25mg q8 Lasix 20mg QD KCl 20meq QD BP improved Plan of care discussed with RN at bedside. No family present during visit. Case management consulted to assist with discharge planning. Patient is self-pay , [facility] evaluating for possible rehab placement. If [facility] has a [facility] bed available, patient is clear for discharge. Patient may progress well enough with PT to go home with family in the next 1-2 weeks. Deepa Cobian Dec 06, 2016 12:31
--- NOTE | 2016-12-06 12:31 | HHI.PR ---
Subjective Subjective Notes RN reports patient removes cranial helmet when unrestrained Tolerating by mouth diet Objective Vitals/I&O Vital Signs Date Time Temp Pulse Resp B/P (MAP) Pulse Ox O2 Delivery O2 Flow Rate FiO2 12/06/16 12:00 97.3 72 17 114/65 (81) 98 12/06/16 09:30 T-Piece 6.00 28 Humidified Labs Date/Time Source Procedure Growth Status 11/24/16 06:00 Blood Peripheral Aerobic Blood Culture - Final NO GROWTH IN 5 DAYS Complete 11/24/16 06:00 Blood Peripheral Anaerobic Blood Culture - Final NO GROWTH IN 5 DAYS Complete 11/13/16 14:31 Cerebral Spinal Fluid Shunt Fluid Fungal Smear - Final NO FUNGAL ELEMENTS SEEN. Resulted 11/13/16 14:31 Cerebral Spinal Fluid Shunt Fluid Fungal Culture - Preliminary NO GROWTH IN 3 WEEKS Resulted 11/23/16 18:00 Sputum Endotracheal Gram Stain - Final Complete 11/23/16 18:00 Sputum Culture - Final Escherichia Coli Complete 11/23/16 18:00 Urine Catheterized Urine Urine Culture - Final NO GROWTH IN 48 HOURS. Complete Radiology Last Impressions Consultation 12/03/16 0000 Signed Impressions: Service Date/Time: November 00:00 - CONCLUSION: Insufficient ascitic volume for safe paracentesis. Andrea Glez Jr., MD Abdomen/Pelvis CT 12/02/16 0000 Signed Impressions: Service Date/Time: Friday, December 02, 2016 18:58 - CONCLUSION: 1. Status post placement of a gastrostomy tube with a feeding tube in the small bowel. 2. There is a small amount of ascites in the upper abdomen. 3. Bilateral pleural effusions with bibasilar atelectasis. 4. Anasarca. 5. Stable hepatic cysts Haris Lockwood MD Chest X-Ray 12/01/16 0600 Signed Impressions: Service Date/Time: Thursday, December 01, 2016 05:04 - CONCLUSION: Some interval worsening in aeration. Fabien Leon MD Abdomen X-Ray 12/01/16 0000 Signed Impressions: Service Date/Time: Thursday, December 01, 2016 08:13 - CONCLUSION: 1. No evidence of obstruction. Kam Menezes MD Head CT 11/28/16 0800 Signed Impressions: Service Date/Time: Monday, November 28, 2016 08:34 - CONCLUSION: 1. The patient's subdural hemorrhage and intraparenchymal hemorrhage all appear to be undergoing the expected evolution. There is significant decrease in the amount of cerebral edema. 2. The ventricles are normal in size. The ventriculostomy is in good position. Chuy Fitzpatrick MD Maxillofacial CT 11/13/16 1316 Signed Impressions: Service Date/Time: Sunday, November 13, 2016 13:11 - CONCLUSION: Air-fluid level with admixture of air and fluid in the left sphenoid sinus compartment. Otherwise negative. Acute fracture is not identified. Yariel Odell MD Thoracic Spine CT 11/13/161310 Signed Impressions: Service Date/Time: Sunday, November 13, 2016 13:15 - CONCLUSION: No fracture or subluxation. Bobby Rasmussen MD Lumbar Spine CT 11/13/161310 Signed Impressions: Service Date/Time: Sunday, November 13, 2016 13:15 - CONCLUSION: 1. No acute fracture. Spinal canal and neural foramen appear to be adequate throughout. 2. Dextroscoliosis of the lumbar spine with mild associated degenerative changes 3. Diverticular disease of the sigmoid without diverticulitis Aftab Cramer MD Chest CT 11/13/16 1311 Signed Impressions: Service Date/Time: Sunday, November 13, 2016 13:17 - CONCLUSION: 1. Negative CT scan of the thorax. Chuy Fitzpatrick MD Cervical Spine CT 11/13/161 Signed Impressions: Service Date/Time: Sunday, November 13, 2016 13:13 - CONCLUSION: 1. No acute fracture the cervical spine identified. There are degenerative changes as above. 2. There is fracture of the right side of the occipital bone. There is subdural hematoma in the posterior fossa on the right and intraparenchymal hemorrhage within the left cerebellar hemisphere. This was assessed by CT imaging of the brain. Chuy Fitzpatrick MD Narrative Exam GENERAL: 61-year-old well-nourished, well developed male lying in bed. SKIN: Warm and dry. HEAD: Atraumatic. Normocephalic. EYES: PERRL. ENT: No nasal bleeding or discharge. Mucous membranes pink and moist. NECK: Trachea midline. No JVD. SENIOR SAS DEVELOPER in place secure to T-collar. CARDIOVASCULAR: Regular rate and rhythm. RESPIRATORY: No accessory muscle use. Lungs clear to auscultation. Breath sounds equal bilaterally. GASTROINTESTINAL: Abdomen soft, non-tender, nondistended. + BS. J-tube in LUQ. MUSCULOSKELETAL: Extremities without cyanosis, or edema. MAEW. + perfused NEUROLOGICAL: Awake and alert. Follows commands. A/P Assessment and Plan [place]: Found down at home with obvious scalp lac and raccoon eyes. GCS 5-6. INJURIES: Skull fx SDH (temporal and parietal) LEFT cerebral contusions (w /compression of 4th ventricle) RIGHT temporal contusion LEFT parietal lobe contusion 11/13: Intubated in the ED 11/13: Suboccipital craniectomy with ventric placement 11/24: SENIOR SAS DEVELOPER placement 11/25: Open jejunostomy placement 11/28: Ventriculostomy removed Diet:Jevity @ 61- Soft diet, Enlive supplements. ST following. Changed TF to nocturnal feeds with soft diet during the day Pulm: T-collar. Nebs. Pain: Fentanyl patch. Roxicodone. Activity: OOB. PT x 7 days and OT ordered. Ambulating with PT. GI: Pepcid Bowel: Senna. MOM. Bisacodyl [place] PRN. LBM: 12/05 DVT: SCD's. Lovenox 30 BID Skull fx, SDH, LEFT cerebral contusions, RIGHT temporal contusion, LEFT parietal lobe contusion Neurosurgery consulted 11/13: Suboccipital craniectomy with ventric placement 11/28: Ventriculostomy removed Trazodone 50 HS Valproic [address] cognitive and swallow eval Lovenox OOB QD- PT ordered x 7 days/ week Respiratory failure Supportive care 11/24: SENIOR SAS DEVELOPER placement 11/25: Open jejunostomy placement Oral care BID Suction PRN Tele Plan to downsize SENIOR SAS DEVELOPER tomorrow HTN Lopressor 25mg BID Hydralazine 25mg q8 Lasix 20mg QD KCl 20meq QD BP improved Plan of care discussed with RN at bedside. No family present during visit. Case management consulted to assist with discharge planning. Patient is self-pay , [facility] evaluating for possible rehab placement. If [place] has a lambert bed available, patient is clear for discharge. Patient may progress well enough with PT to go home with family in the next 1-2 weeks. Deepa Cobian Dec 06, 2016 12:31
--- NOTE | 2016-12-06 12:31 | HHI.PR ---
Subjective Subjective Notes RN reports patient removes cranial helmet when unrestrained Tolerating by mouth diet Objective Vitals/I&O Vital Signs Date Time Temp Pulse Resp B/P (MAP) Pulse Ox O2 Delivery O2 Flow Rate FiO2 12/06/16 12:00 97.3 72 17 114/65 (81) 98 12/06/16 09:30 T-Piece 6.00 28 Humidified Labs Date/Time Source Procedure Growth Status 11/24/16 06:00 Blood Peripheral Aerobic Blood Culture - Final NO GROWTH IN 5 DAYS Complete 11/24/16 06:00 Blood Peripheral Anaerobic Blood Culture - Final NO GROWTH IN 5 DAYS Complete 11/13/16 14:31 Cerebral Spinal Fluid Shunt Fluid Fungal Smear - Final NO FUNGAL ELEMENTS SEEN. Resulted 11/13/16 14:31 Cerebral Spinal Fluid Shunt Fluid Fungal Culture - Preliminary NO GROWTH IN 3 WEEKS Resulted 11/23/16 18:00 Sputum Endotracheal Gram Stain - Final Complete 11/23/16 18:00 Sputum Culture - Final Escherichia Coli Complete 11/23/16 18:00 Urine Catheterized Urine Urine Culture - Final NO GROWTH IN 48 HOURS. Complete Radiology Last Impressions Consultation 12/03/16 0000 Signed Impressions: Service Date/Time: November 00:00 - CONCLUSION: Insufficient ascitic volume for safe paracentesis. Andrea Glez Jr., MD Abdomen/Pelvis CT 12/02/16 0000 Signed Impressions: Service Date/Time: Friday, December 02, 2016 18:58 - CONCLUSION: 1. Status post placement of a gastrostomy tube with a feeding tube in the small bowel. 2. There is a small amount of ascites in the upper abdomen. 3. Bilateral pleural effusions with bibasilar atelectasis. 4. Anasarca. 5. Stable hepatic cysts Haris Lockwood MD Chest X-Ray 12/01/16 0600 Signed Impressions: Service Date/Time: Thursday, December 01, 2016 05:04 - CONCLUSION: Some interval worsening in aeration. Fabien Leon MD Abdomen X-Ray 12/01/16 0000 Signed Impressions: Service Date/Time: Thursday, December 01, 2016 08:13 - CONCLUSION: 1. No evidence of obstruction. Kma Menezes MD Head CT 11/28/16 0800 Signed Impressions: Service Date/Time: Monday, November 28, 2016 08:34 - CONCLUSION: 1. The patient's subdural hemorrhage and intraparenchymal hemorrhage all appear to be undergoing the expected evolution. There is significant decrease in the amount of cerebral edema. 2. The ventricles are normal in size. The ventriculostomy is in good position. Chuy Fitzpatrick MD Maxillofacial CT 11/13/16 1316 Signed Impressions: Service Date/Time: Sunday, November 13, 2016 13:11 - CONCLUSION: Air-fluid level with admixture of air and fluid in the left sphenoid sinus compartment. Otherwise negative. Acute fracture is not identified. Yariel Odell MD Thoracic Spine CT 11/13/161310 Signed Impressions: Service Date/Time: Sunday, November 13, 2016 13:15 - CONCLUSION: No fracture or subluxation. Bobby Rasmussen MD Lumbar Spine CT 11/13/161310 Signed Impressions: Service Date/Time: Sunday, November 13, 2016 13:15 - CONCLUSION: 1. No acute fracture. Spinal canal and neural foramen appear to be adequate throughout. 2. Dextroscoliosis of the lumbar spine with mild associated degenerative changes 3. Diverticular disease of the sigmoid without diverticulitis Aftab Cramer MD Chest CT 11/13/16 1311 Signed Impressions: Service Date/Time: Sunday, November 13, 2016 13:17 - CONCLUSION: 1. Negative CT scan of the thorax. Chuy Fitzpatrick MD Cervical Spine CT 11/13/161 Signed Impressions: Service Date/Time: Sunday, November 13, 2016 13:13 - CONCLUSION: 1. No acute fracture the cervical spine identified. There are degenerative changes as above. 2. There is fracture of the right side of the occipital bone. There is subdural hematoma in the posterior fossa on the right and intraparenchymal hemorrhage within the left cerebellar hemisphere. This was assessed by CT imaging of the brain. Chuy Fitzpatrick MD Narrative Exam GENERAL: 61-year-old well-nourished, well developed male lying in bed. SKIN: Warm and dry. HEAD: Atraumatic. Normocephalic. EYES: PERRL. ENT: No nasal bleeding or discharge. Mucous membranes pink and moist. NECK: Trachea midline. No JVD. GUIDE DOG TRAINER in place secure to T-collar. CARDIOVASCULAR: Regular rate and rhythm. RESPIRATORY: No accessory muscle use. Lungs clear to auscultation. Breath sounds equal bilaterally. GASTROINTESTINAL: Abdomen soft, non-tender, nondistended. + BS. J-tube in LUQ. MUSCULOSKELETAL: Extremities without cyanosis, or edema. MAEW. + perfused NEUROLOGICAL: Awake and alert. Follows commands. A/P Assessment and Plan [place]: Found down at home with obvious scalp lac and raccoon eyes. GCS 5-6. INJURIES: Skull fx SDH (temporal and parietal) LEFT cerebral contusions (w /compression of 4th ventricle) RIGHT temporal contusion LEFT parietal lobe contusion 11/13: Intubated in the ED 11/13: Suboccipital craniectomy with ventric placement 11/24: GUIDE DOG TRAINER placement 11/25: Open jejunostomy placement 11/28: Ventriculostomy removed Diet:Jevity @ 61- Soft diet, Enlive supplements. ST following. Changed TF to nocturnal feeds with soft diet during the day Pulm: T-collar. Nebs. Pain: Fentanyl patch. Roxicodone. Activity: OOB. PT x 7 days and OT ordered. Ambulating with PT. GI: Pepcid Bowel: Senna. MOM. Bisacodyl [place] PRN. LBM: 12/05 DVT: SCD's. Lovenox 30 BID Skull fx, SDH, LEFT cerebral contusions, RIGHT temporal contusion, LEFT parietal lobe contusion Neurosurgery consulted 11/13: Suboccipital craniectomy with ventric placement 11/28: Ventriculostomy removed Trazodone 50 HS Valproic [address] cognitive and swallow eval Lovenox OOB QD- PT ordered x 7 days/ week Respiratory failure Supportive care 11/24: GUIDE DOG TRAINER placement 11/25: Open jejunostomy placement Oral care BID Suction PRN Tele Plan to downsize GUIDE DOG TRAINER tomorrow HTN Lopressor 25mg BID Hydralazine 25mg q8 Lasix 20mg QD KCl 20meq QD BP improved Plan of care discussed with RN at bedside. No family present during visit. Case management consulted to assist with discharge planning. Patient is self-pay , [facility] evaluating for possible rehab placement. If [place] has a lambert bed available, patient is clear for discharge. Patient may progress well enough with PT to go home with family in the next 1-2 weeks. Deepa Cobian Dec 06, 2016 12:31
[2016-12-06] MEDS: traZODone HCL 50 MG TAB PO SCH (21:17)
[2016-12-06] MEDS: MAGNESIUM HYDROXIDE SUSP 30 ML CUP PO SCH (21:17)
[2016-12-07] VITALS (7 sets, daily range): BP systolic 98–183; BP diastolic 58–103; PULSE 69–102; RESP 17–20; TEMP 96.1–99.1; O2SAT 97–99
[2016-12-07] MEDS: SODIUM CHLORIDE 1 GRAM TAB PO SCH ×4 (03:18→21:24)
[2016-12-07] MEDS: ARTIFICIAL TEARS OPTH SOLN 15 ML BTL EACH EYE SCH ×3 (05:40→21:39)
[2016-12-07] MEDS: hydrALAZINE HCL 25 MG TAB PO SCH ×3 (05:40→21:39)
--- NOTE | 2016-12-07 08:28 | HHI.PR ---
Neuropsych Behavior Behavior: Intact: Cooperative w/ Treatment, Mild: Impulsive/Agitated Cognitive Cognitive: Severe: Cognitive, Attention/Concentration, Confused/Orientation, Insight/Awareness, Judgement/Problem-Solving, Memory Psychosocial Psychosocial: Intact: Psychosocial, Family/Other Adjustment, Realistic Expectation, Unable to Asses: Self-Esteem/Confidence Progress Notes/Response to Tx Contents of Sessions: Adjustment, Level of Consciousness Time with Patient: 15 minutes Premorbid psychological status Premorbid Cognitive, Emotional and Behavioral Status: Stable. The patient is originally from [facility] and has a solid work history prior to this injury. The patient has no psychiatric difficulties, as described above. Substance abuse history is unremarkable. Behavioral Reactions of Patient and Family/Support System: Stable. The patient s family is experiencing ongoing issues of adjustment given the nature of the injury, and this aspect of recovery will require ongoing monitoring. Emotional/Behavioral Status of Patient and Family/Support System: Stable. Pertinent issues, if appropriate to this patients clinical care, are described in detail above. Maximizing acute care outcome It is recommended that the patient be monitored for emergent behavioral impulsivity as the medical condition evolves. This patients neuropathological challenges may limit their rehabilitation potential going forward, and these challenges will require specialized therapeutic skills to maximize outcome. Additionally, the patients family is experiencing ongoing issues of adjustment given the traumatic nature of the injury, and they will need ongoing psychological assistance. Anticipated Problems Ongoing areas of concern will include behavioral impulsivity, lack of insight and judgment, which is expected to improve with time and treatment. Presently , the patient remains intubated and sedated. Treatment Plan This clinician will continue to follow with you throughout the course of this patients acute care treatment, and I will be available to meet with the patient s family/support system to facilitate their understanding and the ongoing care of their family member. The goals of neuropsychological intervention shall be both educational and supportive to the family/support system as is deemed clinically appropriate. [facility] Level: IV:Confused/Agitated-maximal assist Impression This is a 61 year old man s/p TBI 2T probable fall. Diagnosis: (1) Major neurocognitive disorder as late effect of traumatic brain injury without behavioral disturbance Status: Acute Progress Note Narrative Ongoing follow-up of patient during daily trauma rounds. This is day 24 post injury. The patient is transferred to the floor as he no longer requires ICU care. He is noted to remove his helmet when not restrained. This increased level of restlessness/agitation (specifically impulsivity) is consistent with emerging [place] IV. He remains on Valproic Acid 250 BID (suggest increasing to 250 TID) and Trazodone 50 HS. I will continue to follow. Johan Pierson PhD Dec 07, 2016 8:28 am
[2016-12-07] MEDS: ENOXAPARIN SODIUM 30 MG/0.3 ML SYRINGE SQ SCH ×2 (09:00→21:22)
[2016-12-07] MEDS: SODIUM CHLORIDE 0.9% FLUSH 10 ML FLUSH IV FLUSH SCH ×2 (09:00→21:00)
[2016-12-07] MEDS: FUROSEMIDE 40 MG/5 ML UNIT DOSE CUP NG SCH (09:14)
[2016-12-07] MEDS: POTASSIUM CHLORIDE 25 MEQ EFFERVESCENT TAB NG SCH (09:14)
[2016-12-07] MEDS: VALPROIC ACID SYRUP 250 MG/5 ML UDC PO SCH ×3 (09:14→18:00)
[2016-12-07] MEDS: SENNOSIDES SYRUP 8.8 MG/5 ML CUP PO SCH (09:14)
[2016-12-07] MEDS: METOPROLOL TARTRATE 25 MG TAB PO SCH ×2 (09:15→21:00)
[2016-12-07] MEDS: CHLORHEXIDINE GLUCONATE 0.12% 15 ML CUP SWISH-SPIT SCH ×2 (09:15→21:00)
[2016-12-07] MEDS: FAMOTIDINE 20 MG TAB NG SCH ×2 (09:15→21:23)
[2016-12-07] MEDS: REMOVE OLD DURAGESIC (FENTANYL) PATCH T-DERMAL SCH (11:00)
[2016-12-07] MEDS: fentaNYL 50 MCG/HR PATCH T-DERMAL SCH (11:53)
--- NOTE | 2016-12-07 12:40 | HHI.PR ---
Subjective Subjective Notes Awake and alert Downsize RULING TECHNICIAN today Objective Vitals/I&O Vital Signs Date Time Temp Pulse Resp B/P (MAP) Pulse Ox O2 Delivery O2 Flow Rate FiO2 12/07/16 09:19 99 Trach Collar 6.00 28 12/07/16 08:00 98.6 89 17 140/86 (104) Labs Date/Time Source Procedure Growth Status 11/24/16 06:00 Blood Peripheral Aerobic Blood Culture - Final NO GROWTH IN 5 DAYS Complete 11/24/16 06:00 Blood Peripheral Anaerobic Blood Culture - Final NO GROWTH IN 5 DAYS Complete 11/13/16 14:31 Cerebral Spinal Fluid Shunt Fluid Fungal Smear - Final NO FUNGAL ELEMENTS SEEN. Resulted 11/13/16 14:31 Cerebral Spinal Fluid Shunt Fluid Fungal Culture - Preliminary NO GROWTH IN 3 WEEKS Resulted 11/23/16 18:00 Sputum Endotracheal Gram Stain - Final Complete 11/23/16 18:00 Sputum Culture - Final Escherichia Coli Complete 11/23/16 18:00 Urine Catheterized Urine Urine Culture - Final NO GROWTH IN 48 HOURS. Complete Radiology Last Impressions Consultation 12/03/16 0000 Signed Impressions: Service Date/Time: November 00:00 - CONCLUSION: Insufficient ascitic volume for safe paracentesis. Andrea Glez Jr., MD Abdomen/Pelvis CT 12/02/16 0000 Signed Impressions: Service Date/Time: Friday, December 02, 2016 18:58 - CONCLUSION: 1. Status post placement of a gastrostomy tube with a feeding tube in the small bowel. 2. There is a small amount of ascites in the upper abdomen. 3. Bilateral pleural effusions with bibasilar atelectasis. 4. Anasarca. 5. Stable hepatic cysts Haris Lockwood MD Chest X-Ray 12/01/16 0600 Signed Impressions: Service Date/Time: Thursday, December 01, 2016 05:04 - CONCLUSION: Some interval worsening in aeration. Fabien Leon MD Abdomen X-Ray 12/01/16 0000 Signed Impressions: Service Date/Time: Thursday, December 01, 2016 08:13 - CONCLUSION: 1. No evidence of obstruction. aKm Menezes MD Head CT 11/28/16 0800 Signed Impressions: Service Date/Time: Monday, November 28, 2016 08:34 - CONCLUSION: 1. The patient's subdural hemorrhage and intraparenchymal hemorrhage all appear to be undergoing the expected evolution. There is significant decrease in the amount of cerebral edema. 2. The ventricles are normal in size. The ventriculostomy is in good position. Chuy Fitzpatrick MD Maxillofacial CT 11/13/166 Signed Impressions: Service Date/Time: Sunday, November 13, 2016 13:11 - CONCLUSION: Air-fluid level with admixture of air and fluid in the left sphenoid sinus compartment. Otherwise negative. Acute fracture is not identified. Yariel Odell MD Thoracic Spine CT 11/13/161310 Signed Impressions: Service Date/Time: Sunday, November 13, 2016 13:15 - CONCLUSION: No fracture or subluxation. Bobby Rasmussen MD Lumbar Spine CT 11/13/161310 Signed Impressions: Service Date/Time: Sunday, November 13, 2016 13:15 - CONCLUSION: 1. No acute fracture. Spinal canal and neural foramen appear to be adequate throughout. 2. Dextroscoliosis of the lumbar spine with mild associated degenerative changes 3. Diverticular disease of the sigmoid without diverticulitis Aftab Cramer MD Chest CT 11/13/161310 Signed Impressions: Service Date/Time: Sunday, November 13, 2016 13:17 - CONCLUSION: 1. Negative CT scan of the thorax. Chuy Fitzpatrick MD Cervical Spine CT 11/13/161310 Signed Impressions: Service Date/Time: Sunday, November 13, 2016 13:13 - CONCLUSION: 1. No acute fracture the cervical spine identified. There are degenerative changes as above. 2. There is fracture of the right side of the occipital bone. There is subdural hematoma in the posterior fossa on the right and intraparenchymal hemorrhage within the left cerebellar hemisphere. This was assessed by CT imaging of the brain. Chuy Fitzpatrick MD Narrative Exam GENERAL: 61-year-old well-nourished, well developed male lying in bed. SKIN: Warm and dry. HEAD: Atraumatic. Normocephalic. EYES: PERRL. ENT: No nasal bleeding or discharge. Mucous membranes pink and moist. NECK: Trachea midline. No JVD. RULING TECHNICIAN in place secure to T-collar. CARDIOVASCULAR: Regular rate and rhythm. RESPIRATORY: No accessory muscle use. Lungs clear to auscultation. Breath sounds equal bilaterally. GASTROINTESTINAL: Abdomen soft, non-tender, nondistended. + BS. J-tube in LUQ. MUSCULOSKELETAL: Extremities without cyanosis, or edema. MAEW. + perfused NEUROLOGICAL: Awake and alert. Follows commands. A/P Assessment and Plan [place]: Found down at home with obvious scalp lac and raccoon eyes. GCS 5-6. INJURIES: Skull fx SDH (temporal and parietal) LEFT cerebral contusions (w /compression of 4th ventricle) RIGHT temporal contusion LEFT parietal lobe contusion 11/13: Intubated in the ED 11/13: Suboccipital craniectomy with ventric placement 11/24: RULING TECHNICIAN placement 11/25: Open jejunostomy placement 11/28: Ventriculostomy removed Diet:Jevity @ 61- Soft diet, Enlive supplements. ST following. Changed TF to nocturnal feeds with soft diet during the day Pulm: T-collar. Nebs. Pain: Fentanyl patch. Roxicodone. Activity: OOB. PT x 7 days and OT ordered. Ambulating with PT. GI: Pepcid Bowel: Senna. MOM. Bisacodyl [place] PRN. LBM: 12/06 DVT: SCD's. Lovenox 30 BID Skull fx, SDH, LEFT cerebral contusions, RIGHT temporal contusion, LEFT parietal lobe contusion Neurosurgery consulted 11/13: Suboccipital craniectomy with ventric placement 11/28: Ventriculostomy removed Trazodone 50 HS Valproic 250 increased to TID for agitation/restlessness ST cognitive and swallow eval Lovenox OOB QD- PT ordered x 7 days/ week Respiratory failure Supportive care 11/24: RULING TECHNICIAN placement 11/25: Open jejunostomy placement Oral care BID Suction PRN Tele Downsize RULING TECHNICIAN today Passy [place] trials QD as tolerated HTN Lopressor 25mg BID Hydralazine 25mg q8 Lasix 20mg QD KCl 20meq QD BP improved Plan of care discussed with RN at bedside. No family present during visit. Case management consulted to assist with discharge planning. Patient is self-pay , [facility] evaluating for possible rehab placement. If [place] has a lambert bed available, patient is clear for discharge. Patient may progress well enough with PT to go home with family in the next 1-2 weeks. Deepa Cobian Dec 07, 2016 12:40
--- NOTE | 2016-12-07 12:40 | HHI.PR ---
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 Resulted 11/13/16 14:31 Cerebral Spinal Fluid Shunt Fluid Fungal Culture - Preliminary NO GROWTH IN 3 WEEKS Resulted 11/23/16 18:00 Sputum Endotracheal Gram Stain - Final Complete 11/23/16 18:00 Sputum Culture - Final Escherichia Coli Complete 11/23/16 18:00 Urine Catheterized Urine Urine Culture - Final NO GROWTH IN 48 HOURS. Complete Radiology Last Impressions Consultation 12/03/16 0000 Signed Impressions: Service Date/Time: November 00:00 - CONCLUSION: Insufficient ascitic volume for safe paracentesis. Andrea Glez Jr., MD Abdomen/Pelvis CT 12/02/16 0000 Signed Impressions: Service Date/Time: Friday, December 02, 2016 18:58 - CONCLUSION: 1. Status post placement of a gastrostomy tube with a feeding tube in the small bowel. 2. There is a small amount of ascites in the upper abdomen. 3. Bilateral pleural effusions with bibasilar atelectasis. 4. Anasarca. 5. Stable hepatic cysts Haris Lockwood MD Chest X-Ray 12/01/16 0600 Signed Impressions: Service Date/Time: Thursday, December 01, 2016 05:04 - CONCLUSION: Some interval worsening in aeration. Fabien Leon MD Abdomen X-Ray 12/01/16 0000 Signed Impressions: Service Date/Time: Thursday, December 01, 2016 08:13 - CONCLUSION: 1. No evidence of obstruction. Kam Menezes MD Head CT 11/28/16 0800 Signed Impressions: Service Date/Time: Monday, November 28, 2016 08:34 - CONCLUSION: 1. The patient's subdural hemorrhage and intraparenchymal hemorrhage all appear to be undergoing the expected evolution. There is significant decrease in the amount of cerebral edema. 2. The ventricles are normal in size. The ventriculostomy is in good position. Chuy Fitzpatrick MD Maxillofacial CT 11/13/166 Signed Impressions: Service Date/Time: Sunday, November 13, 2016 13:11 - CONCLUSION: Air-fluid level with admixture of air and fluid in the left sphenoid sinus compartment. Otherwise negative. Acute fracture is not identified. Yariel Odell MD Thoracic Spine CT 11/13/161310 Signed Impressions: Service Date/Time: Sunday, November 13, 2016 13:15 - CONCLUSION: No fracture or subluxation. Bobby Rasmussen MD Lumbar Spine CT 11/13/161310 Signed Impressions: Service Date/Time: Sunday, November 13, 2016 13:15 - CONCLUSION: 1. No acute fracture. Spinal canal and neural foramen appear to be adequate throughout. 2. Dextroscoliosis of the lumbar spine with mild associated degenerative changes 3. Diverticular disease of the sigmoid without diverticulitis Aftab Cramer MD Chest CT 11/13/161310 Signed Impressions: Service Date/Time: Sunday, November 13, 2016 13:17 - CONCLUSION: 1. Negative CT scan of the thorax. Chuy Fitzpatrick MD Cervical Spine CT 11/13/161310 Signed Impressions: Service Date/Time: Sunday, November 13, 2016 13:13 - CONCLUSION: 1. No acute fracture the cervical spine identified. There are degenerative changes as above. 2. There is fracture of the right side of the occipital bone. There is subdural hematoma in the posterior fossa on the right and intraparenchymal hemorrhage within the left cerebellar hemisphere. This was assessed by CT imaging of the brain. Chuy Fitzpatrick MD Narrative Exam GENERAL: 61-year-old well-nourished, well developed male lying in bed. SKIN: Warm and dry. HEAD: Atraumatic. Normocephalic. EYES: PERRL. ENT: No nasal bleeding or discharge. Mucous membranes pink and moist. NECK: Trachea midline. No JVD. DIRECTOR MEDICAL in place secure to T-collar. CARDIOVASCULAR: Regular rate and rhythm. RESPIRATORY: No accessory muscle use. Lungs clear to auscultation. Breath sounds equal bilaterally. GASTROINTESTINAL: Abdomen soft, non-tender, nondistended. + BS. J-tube in LUQ. MUSCULOSKELETAL: Extremities without cyanosis, or edema. MAEW. + perfused NEUROLOGICAL: Awake and alert. Follows commands. A/P Assessment and Plan [place]: Found down at home with obvious scalp lac and raccoon eyes. GCS 5-6. INJURIES: Skull fx SDH (temporal and parietal) LEFT cerebral contusions (w /compression of 4th ventricle) RIGHT temporal contusion LEFT parietal lobe contusion 11/13: Intubated in the ED 11/13: Suboccipital craniectomy with ventric placement 11/24: DIRECTOR MEDICAL placement 11/25: Open jejunostomy placement 11/28: Ventriculostomy removed Diet:Jevity @ 61- Soft diet, Enlive supplements. ST following. Changed TF to nocturnal feeds with soft diet during the day Pulm: T-collar. Nebs. Pain: Fentanyl patch. Roxicodone. Activity: OOB. PT x 7 days and OT ordered. Ambulating with PT. GI: Pepcid Bowel: Senna. MOM. Bisacodyl [place] PRN. LBM: 12/06 DVT: SCD's. Lovenox 30 BID Skull fx, SDH, LEFT cerebral contusions, RIGHT temporal contusion, LEFT parietal lobe contusion Neurosurgery consulted 11/13: Suboccipital craniectomy with ventric placement 11/28: Ventriculostomy removed Trazodone 50 HS Valproic 250 increased to TID for agitation/restlessness ST cognitive and swallow eval Lovenox OOB QD- PT ordered x 7 days/ week Respiratory failure Supportive care 11/24: DIRECTOR MEDICAL placement 11/25: Open jejunostomy placement Oral care BID Suction PRN Tele Downsize DIRECTOR MEDICAL today Passy Morgan trials QD as tolerated HTN Lopressor 25mg BID Hydralazine 25mg q8 Lasix 20mg QD KCl 20meq QD BP improved Plan of care discussed with RN at bedside. No family present during visit. Case management consulted to assist with discharge planning. Patient is self-pay , [facility] evaluating for possible rehab placement. If [place] has a lambert bed available, patient is clear for discharge. Patient may progress well enough with PT to go home with family in the next 1-2 weeks. Deepa Cobian Dec 07, 2016 12:40
--- NOTE | 2016-12-07 12:40 | HHI.PR ---
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 Resulted 11/13/16 14:31 Cerebral Spinal Fluid Shunt Fluid Fungal Culture - Preliminary NO GROWTH IN 3 WEEKS Resulted 11/23/16 18:00 Sputum Endotracheal Gram Stain - Final Complete 11/23/16 18:00 Sputum Culture - Final Escherichia Coli Complete 11/23/16 18:00 Urine Catheterized Urine Urine Culture - Final NO GROWTH IN 48 HOURS. Complete Radiology Last Impressions Consultation 12/03/16 0000 Signed Impressions: Service Date/Time: November 00:00 - CONCLUSION: Insufficient ascitic volume for safe paracentesis. Andrea Gelz Jr., MD Abdomen/Pelvis CT 12/02/16 0000 Signed Impressions: Service Date/Time: Friday, December 02, 2016 18:58 - CONCLUSION: 1. Status post placement of a gastrostomy tube with a feeding tube in the small bowel. 2. There is a small amount of ascites in the upper abdomen. 3. Bilateral pleural effusions with bibasilar atelectasis. 4. Anasarca. 5. Stable hepatic cysts Haris Lockwood MD Chest X-Ray 12/01/16 0600 Signed Impressions: Service Date/Time: Thursday, December 01, 2016 05:04 - CONCLUSION: Some interval worsening in aeration. Fabien Leon MD Abdomen X-Ray 12/01/16 0000 Signed Impressions: Service Date/Time: Thursday, December 01, 2016 08:13 - CONCLUSION: 1. No evidence of obstruction. Kam Menezes MD Head CT 11/28/16 0800 Signed Impressions: Service Date/Time: Monday, November 28, 2016 08:34 - CONCLUSION: 1. The patient's subdural hemorrhage and intraparenchymal hemorrhage all appear to be undergoing the expected evolution. There is significant decrease in the amount of cerebral edema. 2. The ventricles are normal in size. The ventriculostomy is in good position. Chuy Fitzpatrick MD Maxillofacial CT 11/13/166 Signed Impressions: Service Date/Time: Sunday, November 13, 2016 13:11 - CONCLUSION: Air-fluid level with admixture of air and fluid in the left sphenoid sinus compartment. Otherwise negative. Acute fracture is not identified. Yariel Odell MD Thoracic Spine CT 11/13/161310 Signed Impressions: Service Date/Time: Sunday, November 13, 2016 13:15 - CONCLUSION: No fracture or subluxation. Bobby Rasmussen MD Lumbar Spine CT 11/13/161310 Signed Impressions: Service Date/Time: Sunday, November 13, 2016 13:15 - CONCLUSION: 1. No acute fracture. Spinal canal and neural foramen appear to be adequate throughout. 2. Dextroscoliosis of the lumbar spine with mild associated degenerative changes 3. Diverticular disease of the sigmoid without diverticulitis Aftab Cramer MD Chest CT 11/13/161310 Signed Impressions: Service Date/Time: Sunday, November 13, 2016 13:17 - CONCLUSION: 1. Negative CT scan of the thorax. Chuy Fitzpatrick MD Cervical Spine CT 11/13/161310 Signed Impressions: Service Date/Time: Sunday, November 13, 2016 13:13 - CONCLUSION: 1. No acute fracture the cervical spine identified. There are degenerative changes as above. 2. There is fracture of the right side of the occipital bone. There is subdural hematoma in the posterior fossa on the right and intraparenchymal hemorrhage within the left cerebellar hemisphere. This was assessed by CT imaging of the brain. Chuy Fitzpatrick MD Narrative Exam GENERAL: 61-year-old well-nourished, well developed male lying in bed. SKIN: Warm and dry. HEAD: Atraumatic. Normocephalic. EYES: PERRL. ENT: No nasal bleeding or discharge. Mucous membranes pink and moist. NECK: Trachea midline. No JVD. 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 CARDIOVASCULAR: Regular rate and rhythm. RESPIRATORY: No accessory muscle use. Lungs clear to auscultation. Breath sounds equal bilaterally. GASTROINTESTINAL: Abdomen soft, non-tender, nondistended. + BS. J-tube in LUQ. MUSCULOSKELETAL: Extremities without cyanosis, or edema. MAEW. + perfused NEUROLOGICAL: Awake and alert. Follows commands. A/P Assessment and Plan [place]: Found down at home with obvious scalp lac and raccoon eyes. GCS 5-6. INJURIES: Skull fx SDH (temporal and parietal) LEFT cerebral contusions (w /compression of 4th ventricle) RIGHT temporal contusion LEFT parietal lobe contusion 11/13: Intubated in the ED 11/13: Suboccipital craniectomy with ventric placement 11/24: TRUCK FARMER placement 11/25: Open jejunostomy placement 11/28: Ventriculostomy removed Diet:Jevity @ 61- Soft diet, Enlive supplements. ST following. Changed TF to nocturnal feeds with soft diet during the day Pulm: T-collar. Nebs. Pain: Fentanyl patch. Roxicodone. Activity: OOB. PT x 7 days and OT ordered. Ambulating with PT. GI: Pepcid Bowel: Senna. MOM. Bisacodyl [place] PRN. LBM: 12/06 DVT: SCD's. 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 No family present during visit. Case management consulted to assist with discharge planning. Patient is self-pay , [facility] evaluating for possible rehab placement. If [place] has a lambert bed available, patient is clear for discharge. Patient may progress well enough with PT to go home with family in the next 1-2 weeks. Deepa Cobian Dec 07, 2016 12:40
[2016-12-07] MEDS: MEGESTROL ACETATE SUSP 400 MG/10 ML CUP PO SCH ×2 (15:15→21:23)
[2016-12-07] MEDS: MAGNESIUM HYDROXIDE SUSP 30 ML CUP PO SCH (21:23)
[2016-12-07] MEDS: traZODone HCL 50 MG TAB PO SCH (21:23)
[2016-12-08] MEDS: SODIUM CHLORIDE 1 GRAM TAB PO SCH ×4 (01:11→20:47)
[2016-12-08 02:00] VITALS: BP 113/57; PULSE 80; RESP 18; TEMP 97.7; O2SAT 100
[2016-12-08] MEDS: hydrALAZINE HCL 25 MG TAB PO SCH ×3 (06:00→20:47)
[2016-12-08] MEDS: ARTIFICIAL TEARS OPTH SOLN 15 ML BTL EACH EYE SCH ×3 (06:12→21:00)
[2016-12-08 08:00] VITALS: BP 134/79; PULSE 84; RESP 20; TEMP 97.5; O2SAT 99
--- NOTE | 2016-12-08 08:36 | HHI.PR ---
Neuropsych Emotional Emotional: Intact: Anxious/Fearful, Depressed/Sad Behavior Behavior: Intact: Behavior, Coping/Acceptance, Cooperative w/ Treatment, Moderate: Impulsive/Agitated Cognitive Cognitive: Severe: Cognitive, Attention/Concentration, Confused/Orientation, Insight/Awareness, Judgement/Problem-Solving, Memory Psychosocial Psychosocial: Intact: Psychosocial, Family/Other Adjustment, Realistic Expectation, Unable to Asses: Self-Esteem/Confidence Progress Notes/Response to Tx Contents of Sessions: Adjustment, Level of Consciousness Time with Patient: 15 minutes Premorbid psychological status Premorbid Cognitive, Emotional and Behavioral Status: Stable. The patient is originally from [facility] and has a solid work history prior to this injury. The patient has no psychiatric difficulties, as described above. Substance abuse history is unremarkable. Behavioral Reactions of Patient and Family/Support System: Stable. The patient s family is experiencing ongoing issues of adjustment given the nature of the injury, and this aspect of recovery will require ongoing monitoring. Emotional/Behavioral Status of Patient and Family/Support System: Stable. Pertinent issues, if appropriate to this patients clinical care, are described in detail above. Maximizing acute care outcome It is recommended that the patient be monitored for emergent behavioral impulsivity as the medical condition evolves. This patients neuropathological challenges may limit their rehabilitation potential going forward, and these challenges will require specialized therapeutic skills to maximize outcome. Additionally, the patients family is experiencing ongoing issues of adjustment given the traumatic nature of the injury, and they will need ongoing psychological assistance. Anticipated Problems Ongoing areas of concern will include behavioral impulsivity, lack of insight and judgment, which is expected to improve with time and treatment. Presently , the patient remains intubated and sedated. Treatment Plan This clinician will continue to follow with you throughout the course of this patients acute care treatment, and I will be available to meet with the patient s family/support system to facilitate their understanding and the ongoing care of their family member. The goals of neuropsychological intervention shall be both educational and supportive to the family/support system as is deemed clinically appropriate. [facility]: IV:Confused/Agitated-maximal assist Impression This is a 61 year old man s/p TBI 2T probable fall. Diagnosis: (1) Major neurocognitive disorder as late effect of traumatic brain injury without behavioral disturbance Status: Acute Progress Note Narrative Ongoing follow-up of patient seen during daily trauma rounds. This is day 25 post injury. The patient continues to improve, and is awake and alert. However , he is engaging in automatic behaviors, and does not comprehend appropriately. His trach was downsized. He is demonstrating increasing restlessness and impulsivity, consistent with continued neurobehavioral improvement, and as such his Valproic acid was increased to 250 TID, continued Trazodone 50 HS to manage proper sleep-wake cycle. He is [place]. I will continue to follow. Johan Pierson PhD Dec 08, 2016 8:36 am
[2016-12-08] MEDS: SODIUM CHLORIDE 0.9% FLUSH 10 ML FLUSH IV FLUSH SCH (09:00)
[2016-12-08] MEDS: ENOXAPARIN SODIUM 30 MG/0.3 ML SYRINGE SQ SCH ×2 (09:00→20:46)
[2016-12-08 09:08] VITALS: O2SAT 97
[2016-12-08] MEDS: MEGESTROL ACETATE SUSP 400 MG/10 ML CUP PO SCH ×4 (10:30→20:46)
[2016-12-08] MEDS: CHLORHEXIDINE GLUCONATE 0.12% 15 ML CUP SWISH-SPIT SCH ×2 (10:32→20:48)
[2016-12-08] MEDS: METOPROLOL TARTRATE 25 MG TAB PO SCH ×2 (10:36→20:47)
[2016-12-08] MEDS: FAMOTIDINE 20 MG TAB NG SCH ×2 (10:37→20:47)
[2016-12-08] MEDS: VALPROIC ACID SYRUP 250 MG/5 ML UDC PO SCH ×3 (10:38→17:32)
[2016-12-08] MEDS: FUROSEMIDE 40 MG/5 ML UNIT DOSE CUP NG SCH (10:40)
[2016-12-08] MEDS: POTASSIUM CHLORIDE 25 MEQ EFFERVESCENT TAB NG SCH (10:40)
[2016-12-08] MEDS: SENNOSIDES SYRUP 8.8 MG/5 ML CUP PO SCH (10:41)
--- NOTE | 2016-12-08 11:12 | HHI.PR ---
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 Resulted 11/13/16 14:31 Cerebral Spinal Fluid Shunt Fluid Fungal Culture - Preliminary NO GROWTH IN 3 WEEKS Resulted 11/23/16 18:00 Sputum Endotracheal Gram Stain - Final Complete 11/23/16 18:00 Sputum Culture - Final Escherichia Coli Complete 11/23/16 18:00 Urine Catheterized Urine Urine Culture - Final NO GROWTH IN 48 HOURS. Complete Radiology Last Impressions Consultation 12/03/16 0000 Signed Impressions: Service Date/Time: November 00:00 - CONCLUSION: Insufficient ascitic volume for safe paracentesis. Andrea Glez Jr., MD Abdomen/Pelvis CT 12/02/16 0000 Signed Impressions: Service Date/Time: Friday, December 02, 2016 18:58 - CONCLUSION: 1. Status post placement of a gastrostomy tube with a feeding tube in the small bowel. 2. There is a small amount of ascites in the upper abdomen. 3. Bilateral pleural effusions with bibasilar atelectasis. 4. Anasarca. 5. Stable hepatic cysts Haris Lockwood MD Chest X-Ray 12/01/16 0600 Signed Impressions: Service Date/Time: Thursday, December 01, 2016 05:04 - CONCLUSION: Some interval worsening in aeration. Fabien Leon MD Abdomen X-Ray 12/01/16 0000 Signed Impressions: Service Date/Time: Thursday, December 01, 2016 08:13 - CONCLUSION: 1. No evidence of obstruction. Kam Menezes MD Head CT 11/28/16 0800 Signed Impressions: Service Date/Time: Monday, November 28, 2016 08:34 - CONCLUSION: 1. The patient's subdural hemorrhage and intraparenchymal hemorrhage all appear to be undergoing the expected evolution. There is significant decrease in the amount of cerebral edema. 2. The ventricles are normal in size. The ventriculostomy is in good position. Chuy Fitzpatrick MD Maxillofacial CT 11/13/16 1316 Signed Impressions: Service Date/Time: Sunday, November 13, 2016 13:11 - CONCLUSION: Air-fluid level with admixture of air and fluid in the left sphenoid sinus compartment. Otherwise negative. Acute fracture is not identified. Yariel Odell MD Thoracic Spine CT 11/13/16 131 Signed Impressions: Service Date/Time: Sunday, November 13, 2016 13:15 - CONCLUSION: No fracture or subluxation. Bobby Rasmussen MD Lumbar Spine CT 11/13/16 131 Signed Impressions: Service Date/Time: Sunday, November 13, 2016 13:15 - CONCLUSION: 1. No acute fracture. Spinal canal and neural foramen appear to be adequate throughout. 2. Dextroscoliosis of the lumbar spine with mild associated degenerative changes 3. Diverticular disease of the sigmoid without diverticulitis Aftab Cramer MD Chest CT 11/13/16 1311 Signed Impressions: Service Date/Time: Sunday, November 13, 2016 13:17 - CONCLUSION: 1. Negative CT scan of the thorax. Chuy Fitzpatrick MD Cervical Spine CT 11/13/16 1311 Signed Impressions: Service Date/Time: Sunday, November 13, 2016 13:13 - CONCLUSION: 1. No acute fracture the cervical spine identified. There are degenerative changes as above. 2. There is fracture of the right side of the occipital bone. There is subdural hematoma in the posterior fossa on the right and intraparenchymal hemorrhage within the left cerebellar hemisphere. This was assessed by CT imaging of the brain. Chuy Fitzpatrick MD Narrative Exam GENERAL: 61-year-old well-nourished, well developed male OOB in wheelchair. SKIN: Warm and dry. HEAD:Normocephalic. EYES: PERRL. ENT: No nasal bleeding or discharge. Mucous membranes pink and moist. NECK: Trachea midline. No JVD. ELECTRONIC PAGE MAKEUP SYSTEM OPERATOR in place secure to T-collar. CARDIOVASCULAR: Regular rate and rhythm. RESPIRATORY: No accessory muscle use. Lungs clear to auscultation. Breath sounds equal bilaterally. GASTROINTESTINAL: Abdomen soft, non-tender, nondistended. + BS. J-tube in LUQ. MUSCULOSKELETAL: Extremities without cyanosis, or edema. MAEW. + perfused NEUROLOGICAL: Awake and alert. Mouthing words. A/P Assessment and Plan [place]: Found down at home with obvious scalp lac and raccoon eyes. GCS 5-6. INJURIES: Skull fx SDH (temporal and parietal) LEFT cerebral contusions (w /compression of 4th ventricle) RIGHT temporal contusion LEFT parietal lobe contusion 11/13: Intubated in the ED 11/13: Suboccipital craniectomy with ventric placement 11/24: ELECTRONIC PAGE MAKEUP SYSTEM OPERATOR placement 11/25: Open jejunostomy placement 11/28: Ventriculostomy removed Diet:Jevity @ 61- Soft diet, Enlive supplements. ST following. Changed TF to nocturnal feeds with soft diet during the day Pulm: T-collar. Nebs. Pain: Fentanyl patch. Roxicodone. Activity: OOB. PT x 7 days and OT ordered. Ambulating with PT. GI: Pepcid Bowel: Senna. MOM. Bisacodyl [place] PRN. LBM: 12/08 DVT: SCD's. Lovenox 30 BID Skull fx, SDH, LEFT cerebral contusions, RIGHT temporal contusion, LEFT parietal lobe contusion Neurosurgery consulted 11/13: Suboccipital craniectomy with ventric placement 11/28: Ventriculostomy removed Trazodone 50 HS Valproic 250 TID for agitation/restlessness ST cognitive and swallow eval Lovenox OOB QD- PT ordered x 7 days/ week Respiratory failure Supportive care 11/24: ELECTRONIC PAGE MAKEUP SYSTEM OPERATOR placement 11/25: Open jejunostomy placement 12/07: Downsized ELECTRONIC PAGE MAKEUP SYSTEM OPERATOR to #6 Oral care BID Suction PRN Tele Passy Arco trials QD as tolerated HTN Lopressor 25mg BID Hydralazine 25mg q8 Lasix 20mg QD KCl 20meq QD BP improved Plan of care discussed with RN at bedside. No family present during visit. Case management consulted to assist with discharge planning. Patient is self-pay , [facility] evaluating for possible rehab placement. If [place] has a lambert bed available, patient is clear for discharge. Patient may progress well enough with PT to go home with family in the next week. Deepa Cobian Dec 08, 2016 11:12
--- NOTE | 2016-12-08 11:12 | HHI.PR ---
Subjective Subjective Notes SELLING UNDERWRITER downsized yesterday, tolerated well Has not started Pass[place] trials yet Objective Vitals/I&O Vital Signs Date Time Temp Pulse Resp B/P (MAP) Pulse Ox O2 Delivery O2 Flow Rate FiO2 12/08/16 09:08 97 Trach Collar 5.00 28 12/08/16 08:00 97.5 84 20 134/79 (97) Labs Date/Time Source Procedure Growth Status 11/24/16 06:00 Blood Peripheral Aerobic Blood Culture - Final NO GROWTH IN 5 DAYS Complete 11/24/16 06:00 Blood Peripheral Anaerobic Blood Culture - Final NO GROWTH IN 5 DAYS Complete 11/13/16 14:31 Cerebral Spinal Fluid Shunt Fluid Fungal Smear - Final NO FUNGAL ELEMENTS SEEN. Resulted 11/13/16 14:31 Cerebral Spinal Fluid Shunt Fluid Fungal Culture - Preliminary NO GROWTH IN 3 WEEKS Resulted 11/23/16 18:00 Sputum Endotracheal Gram Stain - Final Complete 11/23/16 18:00 Sputum Culture - Final Escherichia Coli Complete 11/23/16 18:00 Urine Catheterized Urine Urine Culture - Final NO GROWTH IN 48 HOURS. Complete Radiology Last Impressions Consultation 12/03/16 0000 Signed Impressions: Service Date/Time: November 00:00 - CONCLUSION: Insufficient ascitic volume for safe paracentesis. Andrea Glez Jr., MD Abdomen/Pelvis CT 12/02/16 0000 Signed Impressions: Service Date/Time: Friday, December 02, 2016 18:58 - CONCLUSION: 1. Status post placement of a gastrostomy tube with a feeding tube in the small bowel. 2. There is a small amount of ascites in the upper abdomen. 3. Bilateral pleural effusions with bibasilar atelectasis. 4. Anasarca. 5. Stable hepatic cysts Haris Lockwood MD Chest X-Ray 12/01/16 0600 Signed Impressions: Service Date/Time: Thursday, December 01, 2016 05:04 - CONCLUSION: Some interval worsening in aeration. Fabien Leon MD Abdomen X-Ray 12/01/16 0000 Signed Impressions: Service Date/Time: Thursday, December 01, 2016 08:13 - CONCLUSION: 1. No evidence of obstruction. Kam Menezes MD Head CT 11/28/16 0800 Signed Impressions: Service Date/Time: Monday, November 28, 2016 08:34 - CONCLUSION: 1. The patient's subdural hemorrhage and intraparenchymal hemorrhage all appear to be undergoing the expected evolution. There is significant decrease in the amount of cerebral edema. 2. The ventricles are normal in size. The ventriculostomy is in good position. Chuy Fitzpatrick MD Maxillofacial CT 11/13/16 1316 Signed Impressions: Service Date/Time: Sunday, November 13, 2016 13:11 - CONCLUSION: Air-fluid level with admixture of air and fluid in the left sphenoid sinus compartment. Otherwise negative. Acute fracture is not identified. Yariel Odell MD Thoracic Spine CT 11/13/16 131 Signed Impressions: Service Date/Time: Sunday, November 13, 2016 13:15 - CONCLUSION: No fracture or subluxation. Bobby Rasmussen MD Lumbar Spine CT 11/13/16 131 Signed Impressions: Service Date/Time: Sunday, November 13, 2016 13:15 - CONCLUSION: 1. No acute fracture. Spinal canal and neural foramen appear to be adequate throughout. 2. Dextroscoliosis of the lumbar spine with mild associated degenerative changes 3. Diverticular disease of the sigmoid without diverticulitis Aftab Cramer MD Chest CT 11/13/16 1311 Signed Impressions: Service Date/Time: Sunday, November 13, 2016 13:17 - CONCLUSION: 1. Negative CT scan of the thorax. Chuy Fitzpatrick MD Cervical Spine CT 11/13/16 1311 Signed Impressions: Service Date/Time: Sunday, November 13, 2016 13:13 - CONCLUSION: 1. No acute fracture the cervical spine identified. There are degenerative changes as above. 2. There is fracture of the right side of the occipital bone. There is subdural hematoma in the posterior fossa on the right and intraparenchymal hemorrhage within the left cerebellar hemisphere. This was assessed by CT imaging of the brain. Chuy Fitzpatrick MD Narrative Exam GENERAL: 61-year-old well-nourished, well developed male OOB in wheelchair. SKIN: Warm and dry. HEAD:Normocephalic. EYES: PERRL. ENT: No nasal bleeding or discharge. Mucous membranes pink and moist. NECK: Trachea midline. No JVD. SELLING UNDERWRITER in place secure to T-collar. CARDIOVASCULAR: Regular rate and rhythm. RESPIRATORY: No accessory muscle use. Lungs clear to auscultation. Breath sounds equal bilaterally. GASTROINTESTINAL: Abdomen soft, non-tender, nondistended. + BS. J-tube in LUQ. MUSCULOSKELETAL: Extremities without cyanosis, or edema. MAEW. + perfused NEUROLOGICAL: Awake and alert. Mouthing words. A/P Assessment and Plan [place]: Found down at home with obvious scalp lac and raccoon eyes. GCS 5-6. INJURIES: Skull fx SDH (temporal and parietal) LEFT cerebral contusions (w /compression of 4th ventricle) RIGHT temporal contusion LEFT parietal lobe contusion 11/13: Intubated in the ED 11/13: Suboccipital craniectomy with ventric placement 11/24: SELLING UNDERWRITER placement 11/25: Open jejunostomy placement 11/28: Ventriculostomy removed Diet:Jevity @ 61- Soft diet, Enlive supplements. ST following. Changed TF to nocturnal feeds with soft diet during the day Pulm: T-collar. Nebs. Pain: Fentanyl patch. Roxicodone. Activity: OOB. PT x 7 days and OT ordered. Ambulating with PT. GI: Pepcid Bowel: Senna. MOM. Bisacodyl [place] PRN. LBM: 12/08 DVT: SCD's. Lovenox 30 BID Skull fx, SDH, LEFT cerebral contusions, RIGHT temporal contusion, LEFT parietal lobe contusion Neurosurgery consulted 11/13: Suboccipital craniectomy with ventric placement 11/28: Ventriculostomy removed Trazodone 50 HS Valproic 250 TID for agitation/restlessness ST cognitive and swallow eval Lovenox OOB QD- PT ordered x 7 days/ week Respiratory failure Supportive care 11/24: SELLING UNDERWRITER placement 11/25: Open jejunostomy placement 12/07: Downsized SELLING UNDERWRITER to #6 Oral care BID Suction PRN Tele Passy [place] trials QD as tolerated HTN Lopressor 25mg BID Hydralazine 25mg q8 Lasix 20mg QD KCl 20meq QD BP improved Plan of care discussed with RN at bedside. No family present during visit. Case management consulted to assist with discharge planning. Patient is self-pay , [facility] evaluating for possible rehab placement. If [facility] has a lambert bed available, patient is clear for discharge. Patient may progress well enough with PT to go home with family in the next week. Deepa Cobian Dec 08, 2016 11:12
--- NOTE | 2016-12-08 11:12 | HHI.PR ---
Subjective Subjective Notes IUSS MASTER ANALYST downsized yesterday, tolerated well Has not started Passy [place] trials yet Objective Vitals/I&O Vital Signs Date Time Temp Pulse Resp B/P (MAP) Pulse Ox O2 Delivery O2 Flow Rate FiO2 12/08/16 09:08 97 Trach Collar 5.00 28 12/08/16 08:00 97.5 84 20 134/79 (97) Labs Date/Time Source Procedure Growth Status 11/24/16 06:00 Blood Peripheral Aerobic Blood Culture - Final NO GROWTH IN 5 DAYS Complete 11/24/16 06:00 Blood Peripheral Anaerobic Blood Culture - Final NO GROWTH IN 5 DAYS Complete 11/13/16 14:31 Cerebral Spinal Fluid Shunt Fluid Fungal Smear - Final NO FUNGAL ELEMENTS SEEN. Resulted 11/13/16 14:31 Cerebral Spinal Fluid Shunt Fluid Fungal Culture - Preliminary NO GROWTH IN 3 WEEKS Resulted 11/23/16 18:00 Sputum Endotracheal Gram Stain - Final Complete 11/23/16 18:00 Sputum Culture - Final Escherichia Coli Complete 11/23/16 18:00 Urine Catheterized Urine Urine Culture - Final NO GROWTH IN 48 HOURS. Complete Radiology Last Impressions Consultation 12/03/16 0000 Signed Impressions: Service Date/Time: November 00:00 - CONCLUSION: Insufficient ascitic volume for safe paracentesis. Andrea Glez Jr., MD Abdomen/Pelvis CT 12/02/16 0000 Signed Impressions: Service Date/Time: Friday, December 02, 2016 18:58 - CONCLUSION: 1. Status post placement of a gastrostomy tube with a feeding tube in the small bowel. 2. There is a small amount of ascites in the upper abdomen. 3. Bilateral pleural effusions with bibasilar atelectasis. 4. Anasarca. 5. Stable hepatic cysts Haris Lockwood MD Chest X-Ray 12/01/16 0600 Signed Impressions: Service Date/Time: Thursday, December 01, 2016 05:04 - CONCLUSION: Some interval worsening in aeration. Fabien Leon MD Abdomen X-Ray 12/01/16 0000 Signed Impressions: Service Date/Time: Thursday, December 01, 2016 08:13 - CONCLUSION: 1. No evidence of obstruction. Kam Menezes MD Head CT 11/28/16 0800 Signed Impressions: Service Date/Time: Monday, November 28, 2016 08:34 - CONCLUSION: 1. The patient's subdural hemorrhage and intraparenchymal hemorrhage all appear to be undergoing the expected evolution. There is significant decrease in the amount of cerebral edema. 2. The ventricles are normal in size. The ventriculostomy is in good position. Chuy Fitzpatrick MD Maxillofacial CT 11/13/16 1316 Signed Impressions: Service Date/Time: Sunday, November 13, 2016 13:11 - CONCLUSION: Air-fluid level with admixture of air and fluid in the left sphenoid sinus compartment. Otherwise negative. Acute fracture is not identified. Yariel Odell MD Thoracic Spine CT 11/13/16 131 Signed Impressions: Service Date/Time: Sunday, November 13, 2016 13:15 - CONCLUSION: No fracture or subluxation. Bobby Rasmussen MD Lumbar Spine CT 11/13/16 131 Signed Impressions: Service Date/Time: Sunday, November 13, 2016 13:15 - CONCLUSION: 1. No acute fracture. Spinal canal and neural foramen appear to be adequate throughout. 2. Dextroscoliosis of the lumbar spine with mild associated degenerative changes 3. Diverticular disease of the sigmoid without diverticulitis Aftab Cramer MD Chest CT 11/13/16 1311 Signed Impressions: Service Date/Time: Sunday, November 13, 2016 13:17 - CONCLUSION: 1. Negative CT scan of the thorax. Chuy Fitzpatrick MD Cervical Spine CT 11/13/16 1311 Signed Impressions: Service Date/Time: Sunday, November 13, 2016 13:13 - CONCLUSION: 1. No acute fracture the cervical spine identified. There are degenerative changes as above. 2. There is fracture of the right side of the occipital bone. There is subdural hematoma in the posterior fossa on the right and intraparenchymal hemorrhage within the left cerebellar hemisphere. This was assessed by CT imaging of the brain. Chuy Fitzpatrick MD Narrative Exam GENERAL: 61-year-old well-nourished, well developed male OOB in wheelchair. SKIN: Warm and dry. HEAD:Normocephalic. EYES: PERRL. ENT: No nasal bleeding or discharge. Mucous membranes pink and moist. NECK: Trachea midline. No JVD. IUSS MASTER ANALYST in place secure to T-collar. CARDIOVASCULAR: Regular rate and rhythm. RESPIRATORY: No accessory muscle use. Lungs clear to auscultation. Breath sounds equal bilaterally. GASTROINTESTINAL: Abdomen soft, non-tender, nondistended. + BS. J-tube in LUQ. MUSCULOSKELETAL: Extremities without cyanosis, or edema. MAEW. + perfused NEUROLOGICAL: Awake and alert. Mouthing words. A/P Assessment and Plan [place]: Found down at home with obvious scalp lac and raccoon eyes. GCS 5-6. INJURIES: Skull fx SDH (temporal and parietal) LEFT cerebral contusions (w /compression of 4th ventricle) RIGHT temporal contusion LEFT parietal lobe contusion 11/13: Intubated in the ED 11/13: Suboccipital craniectomy with ventric placement 11/24: IUSS MASTER ANALYST placement 11/25: Open jejunostomy placement 11/28: Ventriculostomy removed Diet:Jevity @ 61- Soft diet, Enlive supplements. ST following. Changed TF to nocturnal feeds with soft diet during the day Pulm: T-collar. Nebs. Pain: Fentanyl patch. Roxicodone. Activity: OOB. PT x 7 days and OT ordered. Ambulating with PT. GI: Pepcid Bowel: Senna. MOM. Bisacodyl [place] PRN. LBM: 12/08 DVT: SCD's. Lovenox 30 BID Skull fx, SDH, LEFT cerebral contusions, RIGHT temporal contusion, LEFT parietal lobe contusion Neurosurgery consulted 11/13: Suboccipital craniectomy with ventric placement 11/28: Ventriculostomy removed Trazodone 50 HS Valproic 250 TID for agitation/restlessness ST cognitive and swallow eval Lovenox OOB QD- PT ordered x 7 days/ week Respiratory failure Supportive care 11/24: IUSS MASTER ANALYST placement 11/25: Open jejunostomy placement 12/07: Downsized IUSS MASTER ANALYST to #6 Oral care BID Suction PRN Tele Passy [place] trials QD as tolerated HTN Lopressor 25mg BID Hydralazine 25mg q8 Lasix 20mg QD KCl 20meq QD BP improved Plan of care discussed with RN at bedside. No family present during visit. Case management consulted to assist with discharge planning. Patient is self-pay , [facility] evaluating for possible rehab placement. If [place] has a lambert bed available, patient is clear for discharge. Patient may progress well enough with PT to go home with family in the next week. Deepa Cobian Dec 08, 2016 11:12
[2016-12-08] MEDS ORDERED: BEDSIDE COMMODE1 MI1 (11:55)
[2016-12-08] MEDS ORDERED: WALKER WHEELS/F1 MIS (11:55)
[2016-12-08 12:00] VITALS: BP 107/67; PULSE 91; RESP 20; TEMP 97.8; O2SAT 97
[2016-12-08 14:00] VITALS: BP 125/73; PULSE 73; RESP 20; TEMP 96.9; O2SAT 98
[2016-12-08 20:00] VITALS: BP 132/75; PULSE 72; RESP 18; TEMP 97; O2SAT 97
[2016-12-08] MEDS: traZODone HCL 50 MG TAB PO SCH (20:47)
[2016-12-08] MEDS: MAGNESIUM HYDROXIDE SUSP 30 ML CUP PO SCH (20:48)
[2016-12-09] VITALS (8 sets, daily range): BP systolic 101–153; BP diastolic 55–86; PULSE 68–86; RESP 18–20; TEMP 96–98.4; O2SAT 95–100
[2016-12-09] MEDS: SODIUM CHLORIDE 1 GRAM TAB PO SCH ×4 (02:39→21:50)
[2016-12-09 05:48] LABS: AUTOMATED NEUTROPHIL # 3.4 TH/MM3 (1.8-7.7); BASOPHIL # 0.1 TH/MM3 (0-0.2); BASOPHIL % 0.9 % (0.0-2.0); EOSINOPHIL # 0.3 TH/MM3 (0-0.4); EOSINOPHIL % 3.7 % (0.0-4.0); HEMATOCRIT 34.2 % (39.0-51.0); HEMOGLOBIN 11.3 GM/DL (13.0-17.0); LYMPH % 38.9 % (9.0-44.0); LYMPHOCYTE # 2.9 TH/MM3 (1.0-4.8); MEAN CELL VOLUME 98.4 FL (80.0-100.0); MEAN CORPUSCULAR HEMOGLOBIN 32.6 PG (27.0-34.0); MEAN CORPUSCULAR HGB CONC 33.1 % (32.0-36.0); MEAN PLATELET VOLUME 8.9 FL (7.0-11.0); MONO % 10.9 % (0.0-8.0); MONOCYTE # 0.8 TH/MM3 (0-0.9); NEUT % 45.6 % (16.0-70.0); PLATELET COUNT 277 TH/MM3 (150-450); RED BLOOD COUNT 3.48 MIL/MM3 (4.50-5.90); RED CELL DISTRIBUTION WIDTH 16.2 % (11.6-17.2); WHITE BLOOD COUNT 7.4 TH/MM3 (4.0-11.0)
[2016-12-09 06:21] LABS: CALCIUM 8.7 MG/DL (8.5-10.1); CREATININE 0.63 MG/DL (0.60-1.30)
[2016-12-09] MEDS: ARTIFICIAL TEARS OPTH SOLN 15 ML BTL EACH EYE SCH ×3 (06:27→22:00)
[2016-12-09] MEDS: POTASSIUM CHLORIDE 25 MEQ EFFERVESCENT TAB NG SCH ×2 (09:00→09:42)
[2016-12-09] MEDS: ENOXAPARIN SODIUM 30 MG/0.3 ML SYRINGE SQ SCH ×2 (09:33→21:52)
[2016-12-09] MEDS: SENNOSIDES SYRUP 8.8 MG/5 ML CUP PO SCH (09:33)
[2016-12-09] MEDS: MEGESTROL ACETATE SUSP 400 MG/10 ML CUP PO SCH ×4 (09:34→21:51)
[2016-12-09] MEDS: VALPROIC ACID SYRUP 250 MG/5 ML UDC PO SCH ×3 (09:36→16:55)
[2016-12-09] MEDS: FAMOTIDINE 20 MG TAB NG SCH ×2 (09:39→21:50)
[2016-12-09] MEDS: FUROSEMIDE 40 MG/5 ML UNIT DOSE CUP NG SCH (09:39)
[2016-12-09] MEDS: hydrALAZINE HCL 25 MG TAB PO SCH ×2 (09:41→21:50)
[2016-12-09] MEDS: METOPROLOL TARTRATE 25 MG TAB PO SCH ×2 (09:41→21:52)
[2016-12-09] MEDS: CHLORHEXIDINE GLUCONATE 0.12% 15 ML CUP SWISH-SPIT SCH ×2 (09:42→21:50)
--- NOTE | 2016-12-09 10:17 | HHI.PR ---
Subjective Subjective Notes PTD: 27 Patient lying in bed. Eyes closed. No distress noted. Objective Vitals/I&O Vital Signs Date Time Temp Pulse Resp B/P (MAP) Pulse Ox O2 Delivery O2 Flow Rate FiO2 12/09/16 08:00 98.4 68 20 128/80 (96) 96 12/08/16 09:08 Trach Collar 5.00 28 Labs Laboratory Tests Test 12/09/16 04:49 White Blood Count 7.4 Red Blood Count 3.48 Hemoglobin 11.3 Hematocrit 34.2 Mean Corpuscular Volume 98.4 Mean Corpuscular Hemoglobin 32.6 Mean Corpuscular Hemoglobin Concent 33.1 Red Cell Distribution Width 16.2 Platelet Count 277 Mean Platelet Volume 8.9 Neutrophils (%) (Auto) 45.6 Lymphocytes (%) (Auto) 38.9 Monocytes (%) (Auto) 10.9 Eosinophils (%) (Auto) 3.7 Basophils (%) (Auto) 0.9 Neutrophils # (Auto) 3.4 Lymphocytes # (Auto) 2.9 Monocytes # (Auto) 0.8 Eosinophils # (Auto) 0.3 Basophils # (Auto) 0.1 CBC Comment DIFF FINAL Differential Comment Blood Urea Nitrogen 17 Creatinine 0.63 Random Glucose 82 Calcium Level 8.7 Sodium Level 136 Potassium Level 4.8 Chloride Level 100 Carbon Dioxide Level 31.0 Anion Gap 5 Estimat Glomerular Filtration Rate 130 Date/Time Source Procedure Growth Status 11/24/16 06:00 Blood Peripheral Aerobic Blood Culture - Final NO GROWTH IN 5 DAYS Complete 11/24/16 06:00 Blood Peripheral Anaerobic Blood Culture - Final NO GROWTH IN 5 DAYS Complete 11/13/16 14:31 Cerebral Spinal Fluid Shunt Fluid Fungal Smear - Final NO FUNGAL ELEMENTS SEEN. Resulted 11/13/16 14:31 Cerebral Spinal Fluid Shunt Fluid Fungal Culture - Preliminary NO GROWTH IN 3 WEEKS Resulted 11/23/16 18:00 Sputum Endotracheal Gram Stain - Final Complete 11/23/16 18:00 Sputum Culture - Final Escherichia Coli Complete 11/23/16 18:00 Urine Catheterized Urine Urine Culture - Final NO GROWTH IN 48 HOURS. Complete Narrative Exam GENERAL: This is a 61-year-old male lying in bed. No distress noted. SKIN: Warm and dry. HEAD: Atraumatic. Normocephalic. EYES: PERRLA ENT: No nasal bleeding or discharge. Mucous membranes pink and moist. NECK: Trachea midline. No JVD. CARDIOVASCULAR: Regular rate and rhythm. RESPIRATORY: No accessory muscle use. Lungs are clear to auscultation. Breath sounds equal bilaterally. No distress or dyspnea. GASTROINTESTINAL: BS + x 4 quads. Abdomen soft, non-tender, nondistended. MUSCULOSKELETAL: Extremities without cyanosis, or edema. + peripheral pulses x 4 extremities. Warm with good capillary refill and sensation. MAEW. NEUROLOGICAL: Asleep. 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 disturbance ICD Codes: S06.9X9S - Unspecified intracranial injury with loss of consciousness of unspecified duration, sequela; F02.80 - Dementia in other diseases classified elsewhere without behavioral disturbance Status: Acute (4) Dyspnea and respiratory abnormalities ICD Codes: R06.00 - Dyspnea, unspecified; R06.89 - Other abnormalities of breathing Status: Resolved (5) Pain, generalized ICD Codes: R52 - Pain, unspecified Status: Acute (6) Subdural hemorrhage ICD Codes: I62.00 - Nontraumatic subdural hemorrhage, unspecified Status: Acute (7) Brain contusion ICD Codes: S06.2X9A - Diffuse traumatic brain injury with loss of consciousness of unspecified duration, initial encounter Status: Acute (8) Skull fractures ICD Codes: S02.91XA - Unspecified fracture of skull, initial encounter for closed fracture Status: Acute (9) Status post craniectomy ICD Codes: Z98.890 - Other specified postprocedural states Status: Acute Assessment and Plan [place]: This is a 61-year-old male who was found down at home with an obvious scalp lac and raccoon eyes. GCS 5-6. Obtunded. He was intubated in the ED. + Cannabis. INJURIES: Skull fx SDH (temporal and parietal) LEFT cerebral contusions (w /compression of 4th ventricle) RIGHT temporal contusion LEFT parietal lobe contusion Procedures: 11/13: Intubated in the ED 11/13: Suboccipital craniectomy 11/24: BEDSIDE TRACH 11/25: Open jejunostomy placement 11/28: Ventric out 12/07: Downsized DRY CHAIN OFFBEARER to #6 12/08: Decannulated self Consults: CCM. Neurosurgery. Pad care. Speech therapy. Rehabilitation medicine. Neuropsych. [facility] nurse liaison. Case management. Diet: Regular diet. Tolerating po diet. Encourage good po intake with each meal. Megace. Pulmonary: Encourage good pulmonary toileting. IS at bedside and pt encouraged to use. Rationale for use explained to patient, and verbalized understanding. Duo nebs. PAIN Management: Fentanyl patch 50 mcg. Roxicodone 5 mg q 6h. Behavior: Trazadone 50 HS. Valproic 250 TID Activity: OOB. PT x 7 DAYS and OT ordered. (cranial helmet) GI prophylaxis: Pepcid. Bowel regimen: Senna. MOM. Bisacodyl [place] PRN. LBM: 12/09 DVT prophylaxis: Mechanical VTE with SCDs. Chemical management with Lovenox 30 BID SQ. DC Planning: Case management consulted for assistance with final discharge disposition. Patient does not have insurance, therefore placement has been difficult. However, patient has been progressing very well. He is now tolerating a po diet and has been ambulating. PT has been intensified to 7 days a week to promote progress to discharge home. Emotional support provided to patient and family at bedside and plan of care discussed. Discussed with RN at bedside. Patient is hemodynamically stable and being managed on the med/surg floor. The trauma team will round each day, and evaluate plan of care on a daily basis. Skull fx SDH, LEFT cerebral contusions RIGHT temporal contusion LEFT parietal lobe contusion Neurosurgery consulted and assisting in management and care 11/13: Suboccipital craniectomy with ventric placement 11/28: Ventriculostomy removed Trazodone 50 HS Valproic 250 TID for agitation/restlessness ST cognitive and swallow eval Toterating po Lovenox BID OOB QD- PT ordered x 7 days/ week Respiratory failure Supportive care 11/24: DRY CHAIN OFFBEARER placement 11/25: Open jejunostomy placement 12/07: Downsized DRY CHAIN OFFBEARER to #6 12/08: Self removed trach Oral care BID Suction PRN HTN Lopressor 25mg BID Hydralazine 25mg q8 Lasix 20mg QD KCl 20meq QD BP improved Problem Qualifiers (1) Traumatic brain injury: (2) Brain contusion: Qualified Codes: S06.2X9A - Diffuse traumatic brain injury with loss of consciousness of unspecified duration, initial encounter (3) Skull fractures: Rose Marie Brennan Dec 09, 2016 10:17
--- NOTE | 2016-12-09 12:00 | HHI.HCPN ---
Reason for visit a. To assist with evaluation and management of symptoms including: Pain, dyspnea, nausea b. To assist medical decision maker(s) with: better understanding of current medical conditions; weighing benefits/burdens of medical treatment options; making medical treatment decisions. Subjective/Interval History This is a 61 year old male brought to [facility] as a trauma alert under Trino Carlisle 11/13/16, after being found down at home by family with an obvious scalp hematoma to the posterior part of his head, unconscious. He was emergently intubated in the ED and underwent left suboccipital craniectomy with evacuation of cerebellar hemorrhage and placement of a ventriculostomy catheter via a right frontal manas hole. Patient seen in room today, alert and awake, with Passy [place] valve, he verbalizes a few words but does not make much eye contact and is not very interactive at the time of the exam. Patient was unable to verbalize time or place but is oriented to self and also recognizes his daughter's name. He is on room air, vital signs and laboratory data has been stable over the past 48 hours. Patient has been ambulating the hallway with PT and the nursing staff. Discharge planning in process, per case management notes the patient will possibly be discharge in approximately a week with home health services. . Family/friend interactions Telephone call placed to patient's daughter Blaze angeles left. . Advance Directives Living Will: Never completed Health Care Surrogate: Never completed Durable Power of Behavioral School Counselors: Never completed Objective Vital Signs Date Time Temp Pulse Resp B/P (MAP) Pulse Ox O2 Delivery O2 Flow Rate FiO2 12/09/16 08:00 98.4 68 20 128/80 (96) 96 12/09/16 05:04 97.5 86 18 142/81 (101) 95 12/09/16 00:56 96.0 70 18 101/55 (70) 95 12/08/16 20:00 97.0 72 18 132/75 (94) 97 12/08/16 14:00 96.9 73 20 125/73 (90) 98 12/08/16 12:00 97.8 91 20 107/67 (80) 97 Intake & Output 12/09/16 12/09/16 07:00 19:00 Intake Total 120 ml Output Total 0 ml Balance 0 ml 120 ml Intake Oral 120 ml Stool Total 0 ml # Voids 4 . Physical Exam CONSTITUTIONAL/GENERAL: This is a thin middle-aged male, able to verbalize some words, Passy Morgan in place TUBES/LINES/DRAINS: PIV x 1, J tube SKIN: No jaundice, rashes, or lesions. Skin temperature appropriate. Not diaphoretic. HEAD: Right cranial incision healing well EYES: Pupils 3 mm, equal and round and reactive. Bilateral scleral icterus. NECK: Trachea midline. Midline tracheostomy. CARDIOVASCULAR: Regular rate and rhythm without murmurs, gallops, or rubs. Peripheral pulses symmetric. RESPIRATORY/CHEST: Symmetric, unlabored respirations. Breath sounds clear to auscultation. On room air. GASTROINTESTINAL: Abdomen, flat, only light palpation secondary to tenderness. Positive bowel sounds present. J-tube clamped. Abdominal binder in place. GENITOURINARY: Without palpable bladder distension. MUSCULOSKELETAL: Extremities without clubbing, cyanosis, or edema. No mottling or clubbing. Spontaneous movement seen in bilateral lower and right upper extremity, no movement seen in left upper extremity. NEUROLOGICAL: Awake, alert, oriented to self. Spontaneously moving right upper and bilateral lower extremities. Follows simple commands. PSYCHIATRIC: Calm. . Diagnostic Tests Laboratory Laboratory Tests Test 12/09/16 04:49 White Blood Count 7.4 TH/MM3 (4.0-11.0) Red Blood Count 3.48 MIL/MM3 (4.50-5.90) Hemoglobin 11.3 GM/DL (13.0-17.0) Hematocrit 34.2 % (39.0-51.0) Mean Corpuscular Volume 98.4 FL (80.0-100.0) Mean Corpuscular Hemoglobin 32.6 PG (27.0-34.0) Mean Corpuscular Hemoglobin Concent 33.1 % (32.0-36.0) Red Cell Distribution Width 16.2 % (11.6-17.2) Platelet Count 277 TH/MM3 (150-450) Mean Platelet Volume 8.9 FL (7.0-11.0) Neutrophils (%) (Auto) 45.6 % (16.0-70.0) Lymphocytes (%) (Auto) 38.9 % (9.0-44.0) Monocytes (%) (Auto) 10.9 % (0.0-8.0) Eosinophils (%) (Auto) 3.7 % (0.0-4.0) Basophils (%) (Auto) 0.9 % (0.0-2.0) Neutrophils # (Auto) 3.4 TH/MM3 (1.8-7.7) Lymphocytes # (Auto) 2.9 TH/MM3 (1.0-4.8) Monocytes # (Auto) 0.8 TH/MM3 (0-0.9) Eosinophils # (Auto) 0.3 TH/MM3 (0-0.4) Basophils # (Auto) 0.1 TH/MM3 (0-0.2) CBC Comment DIFF FINAL Differential Comment Blood Urea Nitrogen 17 MG/DL (7-18) Creatinine 0.63 MG/DL (0.60-1.30) Random Glucose 82 MG/DL (74-106) Calcium Level 8.7 MG/DL (8.5-10.1) Sodium Level 136 MEQ/L (136-145) Potassium Level 4.8 MEQ/L (3.5-5.1) Chloride Level 100 MEQ/L (98-107) Carbon Dioxide Level 31.0 MEQ/L (21.0-32.0) Anion Gap 5 MEQ/L (5-15) Estimat Glomerular Filtration Rate 130 ML/MIN (>89) Result Diagram: 12/09/16 0449 12/09/16 0449 Procedures 11/30/16- Ventriculostomy drain removed 11/25/16 - J-tube placed via open approach. 11/24/16 - tracheostomy placement 11/24/16 - attempted esophageal PEG placement, failed. 11/13/16 - intubation 11/13/16 - right frontal manas hole with placement of ventriculostomy catheter 11/13/16- left suboccipital craniectomy, evacuation of cerebellar hemorrhage. . Assessment and Plan Disease Oriented Problem List: (1) Status post craniectomy (2) Traumatic brain injury (3) Skull fractures (4) Intracranial hemorrhage (5) Major neurocognitive disorder as late effect of traumatic brain injury without behavioral disturbance Symptom Scale: (1) Dyspnea and respiratory abnormalities 0-10 Scale: Unable to quantify (2) Pain, generalized 0-10 Scale: Unable to quantify Pertinent Non-Medical Issues Psychosocial:He was born in [place] and lived in many countries around the world, moving to the [facility] in 1997 to settle in [place]. 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 He currently works at [employer]. He speaks multiple languages to include Luxembourgish, Guyanese, Sammarinese , Wallisian and Thai. He lives with his mother to provide care for her, as she has Alzheimer's dementia. Spiritual: He was raised [employer] and would appreciate [facility]. Legal: He has 3 daughters who will serve as joint healthcare proxies. His mother has Alzheimer's dementia and is unable to participate in decision-making. Ethical issues impacting care: Circumstances surrounding patient's injury are not known, however, the [place] police are investigating and would like to speak with him regarding the circumstances once he is able to communicate. Important Contacts Adamscorrina Finn - [phone] Slona Briseno - [phone] Charlene Finn - [phone] . Prognosis Patient suffered an extensive head injury requiring right frontal manas hole with placement of ventriculostomy catheter. The patient also required intubation , mechanical ventilation, with subsequent tracheostomy. PT/OT have been optimizing the patient's therapy and he is now able to ambulate in the hallway. Discharge planning is in process and he should be discharged with home health some time next week. He will likely continue to have sequelae of severe head trauma requiring extensive rehabilitation. Code Status: Full Code Plan PLAN: Legal decision maker: He has 3 daughters, Sloan Briseno, Charlene Margaritarachel and Susana Finn Goals: Aggressive CODE STATUS: Full code SYMPTOMS: * Pain -Currently receiving fentanyl patch 50mcg q 72 hours in conjunction with PRN Roxicodone 5mg q 6 hours for break through pain. Last pain medication administered 12/06/16 at 1931. Patient is currently not showing any signs of pain at this time. He will require frequent nursing assessments to evaluate changes in posture, countenance for possible pain. No recommendations at this time. * Dyspnea - Patient trached and on room aire. Remains at risk for dyspnea due to possible aspiration, potential infection, immobility. Receiving scheduled DuoNebs. No recommendations at this time. * Nausea - Resolved. Last dose of ondansetron 4mg utilized 11/27/16. Diet advanced to regular diet, receiving night feedings of Jevity at 60ml/hr. No recommendations at this time. * Palliative care will continue to follow the patient during hospital course as condition evolves, to assist patient/decision-maker with understanding of their medical conditions, weighing benefits/burdens of treatment options, for clarification of goals of treatment. Additionally will assist with any symptoms of palliative concern Attestation To help prompt me to consider important information that might be impacting today's encounter and assessment, information from prior notes written by myself or my colleagues may have been "brought forward" into today's note. My signature on this note, however, is an attestation that I personally performed the exam, history, and/or decision-making noted today, and, unless otherwise indicated, the interactions with patient, family, and staff as well as the review of records all occurred today. I also attest that the listed assessment and stated plan reflect my best clinical judgment today based on the combination of historical information, prior notes, and today's exam/ interactions. When time spent is documented, it refers only to time spent today by the signer, or if indicated, combined time spent today by collaborating physician/nurse practitioner. Lynette Wall Dec 09, 2016 12:00
--- NOTE | 2016-12-09 12:00 | HHI.HCPN ---
Reason for visit a. To assist with evaluation and management of symptoms including: Pain, dyspnea, nausea b. To assist medical decision maker(s) with: better understanding of current medical conditions; weighing benefits/burdens of medical treatment options; making medical treatment decisions. Subjective/Interval History This is a 61 year old male brought to [facility] as a trauma alert under Trino Carlisle 11/13/16, after being found down at home by family with an obvious scalp hematoma to the posterior part of his head, unconscious. He was emergently intubated in the ED and underwent left suboccipital craniectomy with evacuation of cerebellar hemorrhage and placement of a ventriculostomy catheter via a right frontal manas hole. Patient seen in room today, alert and awake, with Passy [place] valve, he verbalizes a few words but does not make much eye contact and is not very interactive at the time of the exam. Patient was unable to verbalize time or place but is oriented to self and also recognizes his daughter's name. He is on room air, vital signs and laboratory data has been stable over the past 48 hours. Patient has been ambulating the hallway with PT and the nursing staff. Discharge planning in process, per case management notes the patient will possibly be discharge in approximately a week with home health services. . Family/friend interactions Telephone call placed to patient's daughter Blaze angeles left. . Advance Directives Living Will: Never completed Health Care Surrogate: Never completed Durable Power of Student Records Coordinator: Never completed Objective Vital Signs Date Time Temp Pulse Resp B/P (MAP) Pulse Ox O2 Delivery O2 Flow Rate FiO2 12/09/16 08:00 98.4 68 20 128/80 (96) 96 12/09/16 05:04 97.5 86 18 142/81 (101) 95 12/09/16 00:56 96.0 70 18 101/55 (70) 95 12/08/16 20:00 97.0 72 18 132/75 (94) 97 12/08/16 14:00 96.9 73 20 125/73 (90) 98 12/08/16 12:00 97.8 91 20 107/67 (80) 97 Intake & Output 12/09/16 12/09/16 07:00 19:00 Intake Total 120 ml Output Total 0 ml Balance 0 ml 120 ml Intake Oral 120 ml Stool Total 0 ml # Voids 4 . Physical Exam CONSTITUTIONAL/GENERAL: This is a thin middle-aged male, able to verbalize some words, Passy Morgan in place TUBES/LINES/DRAINS: PIV x 1, J tube SKIN: No jaundice, rashes, or lesions. Skin temperature appropriate. Not diaphoretic. HEAD: Right cranial incision healing well EYES: Pupils 3 mm, equal and round and reactive. Bilateral scleral icterus. NECK: Trachea midline. Midline tracheostomy. CARDIOVASCULAR: Regular rate and rhythm without murmurs, gallops, or rubs. Peripheral pulses symmetric. RESPIRATORY/CHEST: Symmetric, unlabored respirations. Breath sounds clear to auscultation. On room air. GASTROINTESTINAL: Abdomen, flat, only light palpation secondary to tenderness. Positive bowel sounds present. J-tube clamped. Abdominal binder in place. GENITOURINARY: Without palpable bladder distension. MUSCULOSKELETAL: Extremities without clubbing, cyanosis, or edema. No mottling or clubbing. Spontaneous movement seen in bilateral lower and right upper extremity, no movement seen in left upper extremity. NEUROLOGICAL: Awake, alert, oriented to self. Spontaneously moving right upper and bilateral lower extremities. Follows simple commands. PSYCHIATRIC: Calm. . Diagnostic Tests Laboratory Laboratory Tests Test 12/09/16 04:49 White Blood Count 7.4 TH/MM3 (4.0-11.0) Red Blood Count 3.48 MIL/MM3 (4.50-5.90) Hemoglobin 11.3 GM/DL (13.0-17.0) Hematocrit 34.2 % (39.0-51.0) Mean Corpuscular Volume 98.4 FL (80.0-100.0) Mean Corpuscular Hemoglobin 32.6 PG (27.0-34.0) Mean Corpuscular Hemoglobin Concent 33.1 % (32.0-36.0) Red Cell Distribution Width 16.2 % (11.6-17.2) Platelet Count 277 TH/MM3 (150-450) Mean Platelet Volume 8.9 FL (7.0-11.0) Neutrophils (%) (Auto) 45.6 % (16.0-70.0) Lymphocytes (%) (Auto) 38.9 % (9.0-44.0) Monocytes (%) (Auto) 10.9 % (0.0-8.0) Eosinophils (%) (Auto) 3.7 % (0.0-4.0) Basophils (%) (Auto) 0.9 % (0.0-2.0) Neutrophils # (Auto) 3.4 TH/MM3 (1.8-7.7) Lymphocytes # (Auto) 2.9 TH/MM3 (1.0-4.8) Monocytes # (Auto) 0.8 TH/MM3 (0-0.9) Eosinophils # (Auto) 0.3 TH/MM3 (0-0.4) Basophils # (Auto) 0.1 TH/MM3 (0-0.2) CBC Comment DIFF FINAL Differential Comment Blood Urea Nitrogen 17 MG/DL (7-18) Creatinine 0.63 MG/DL (0.60-1.30) Random Glucose 82 MG/DL (74-106) Calcium Level 8.7 MG/DL (8.5-10.1) Sodium Level 136 MEQ/L (136-145) Potassium Level 4.8 MEQ/L (3.5-5.1) Chloride Level 100 MEQ/L (98-107) Carbon Dioxide Level 31.0 MEQ/L (21.0-32.0) Anion Gap 5 MEQ/L (5-15) Estimat Glomerular Filtration Rate 130 ML/MIN (>89) Result Diagram: 12/09/16 0449 12/09/16 0449 Procedures 11/30/16- Ventriculostomy drain removed 11/25/16 - J-tube placed via open approach. 11/24/16 - tracheostomy placement 11/24/16 - attempted esophageal PEG placement, failed. 11/13/16 - intubation 11/13/16 - right frontal manas hole with placement of ventriculostomy catheter 11/13/16- left suboccipital craniectomy, evacuation of cerebellar hemorrhage. . Assessment and Plan Disease Oriented Problem List: (1) Status post craniectomy (2) Traumatic brain injury (3) Skull fractures (4) Intracranial hemorrhage (5) Major neurocognitive disorder as late effect of traumatic brain injury without behavioral disturbance Symptom Scale: (1) Dyspnea and respiratory abnormalities 0-10 Scale: Unable to quantify (2) Pain, generalized 0-10 Scale: Unable to quantify Pertinent Non-Medical Issues Psychosocial:He was born in [place] and lived in many countries around the world, moving to the [facility] in 1997 to settle in [place]. 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 He currently works at [employer]. He speaks multiple languages to include Indonesian, Mauritian, Vietnamese , Ivorian and Maori. He lives with his mother to provide care for her, as she has Alzheimer's dementia. Spiritual: He was raised [place] and would appreciate [facility] visits. Legal: He has 3 daughters who will serve as joint healthcare proxies. His mother has Alzheimer's dementia and is unable to participate in decision-making. Ethical issues impacting care: Circumstances surrounding patient's injury are not known, however, the [place] police are investigating and would like to speak with him regarding the circumstances once he is able to communicate. Important Contacts Adamscorrina Finn - [phone] Sloan Briseno - [phone] Charlene Finn - [phone] . Prognosis Patient suffered an extensive head injury requiring right frontal manas hole with placement of ventriculostomy catheter. The patient also required intubation , mechanical ventilation, with subsequent tracheostomy. PT/OT have been optimizing the patient's therapy and he is now able to ambulate in the hallway. Discharge planning is in process and he should be discharged with home health some time next week. He will likely continue to have sequelae of severe head trauma requiring extensive rehabilitation. Code Status: Full Code Plan PLAN: Legal decision maker: He has 3 daughters, Sloan Briseno, Charlene Margaritarachel and Susana Finn Goals: Aggressive CODE STATUS: Full code SYMPTOMS: * Pain -Currently receiving fentanyl patch 50mcg q 72 hours in conjunction with PRN Roxicodone 5mg q 6 hours for break through pain. Last pain medication administered 12/06/16 at 1931. Patient is currently not showing any signs of pain at this time. He will require frequent nursing assessments to evaluate changes in posture, countenance for possible pain. No recommendations at this time. * Dyspnea - Patient trached and on room aire. Remains at risk for dyspnea due to possible aspiration, potential infection, immobility. Receiving scheduled DuoNebs. No recommendations at this time. * Nausea - Resolved. Last dose of ondansetron 4mg utilized 11/27/16. Diet advanced to regular diet, receiving night feedings of Jevity at 60ml/hr. No recommendations at this time. * Palliative care will continue to follow the patient during hospital course as condition evolves, to assist patient/decision-maker with understanding of their medical conditions, weighing benefits/burdens of treatment options, for clarification of goals of treatment. Additionally will assist with any symptoms of palliative concern Attestation To help prompt me to consider important information that might be impacting today's encounter and assessment, information from prior notes written by myself or my colleagues may have been "brought forward" into today's note. My signature on this note, however, is an attestation that I personally performed the exam, history, and/or decision-making noted today, and, unless otherwise indicated, the interactions with patient, family, and staff as well as the review of records all occurred today. I also attest that the listed assessment and stated plan reflect my best clinical judgment today based on the combination of historical information, prior notes, and today's exam/ interactions. When time spent is documented, it refers only to time spent today by the signer, or if indicated, combined time spent today by collaborating physician/nurse practitioner. Lynette Wall Dec 09, 2016 12:00
--- NOTE | 2016-12-09 12:00 | HHI.HCPN ---
Reason for visit a. To assist with evaluation and management of symptoms including: Pain, dyspnea, nausea b. To assist medical decision maker(s) with: better understanding of current medical conditions; weighing benefits/burdens of medical treatment options; making medical treatment decisions. Subjective/Interval History This is a 61 year old male brought to [facility] as a trauma alert under Trino Carlisle 11/13/16, after being found down at home by family with an obvious scalp hematoma to the posterior part of his head, unconscious. He was emergently intubated in the ED and underwent left suboccipital craniectomy with evacuation of cerebellar hemorrhage and placement of a ventriculostomy catheter via a right frontal manas hole. Patient seen in room today, alert and awake, with Passy [place] valve, he verbalizes a few words but does not make much eye contact and is not very interactive at the time of the exam. Patient was unable to verbalize time or place but is oriented to self and also recognizes his daughter's name. He is on room air, vital signs and laboratory data has been stable over the past 48 hours. Patient has been ambulating the hallway with PT and the nursing staff. Discharge planning in process, per case management notes the patient will possibly be discharge in approximately a week with home health services. . Family/friend interactions Telephone call placed to patient's daughter Blaze angeles left. . Advance Directives Living Will: Never completed Health Care Surrogate: Never completed Durable Power of Explosive Specialist: Never completed Objective Vital Signs Date Time Temp Pulse Resp B/P (MAP) Pulse Ox O2 Delivery O2 Flow Rate FiO2 12/09/16 08:00 98.4 68 20 128/80 (96) 96 12/09/16 05:04 97.5 86 18 142/81 (101) 95 12/09/16 00:56 96.0 70 18 101/55 (70) 95 12/08/16 20:00 97.0 72 18 132/75 (94) 97 12/08/16 14:00 96.9 73 20 125/73 (90) 98 12/08/16 12:00 97.8 91 20 107/67 (80) 97 Intake & Output 12/09/16 12/09/16 07:00 19:00 Intake Total 120 ml Output Total 0 ml Balance 0 ml 120 ml Intake Oral 120 ml Stool Total 0 ml # Voids 4 . Physical Exam CONSTITUTIONAL/GENERAL: This is a thin middle-aged male, able to verbalize some words, Passy [place] in place TUBES/LINES/DRAINS: PIV x 1, J tube SKIN: No jaundice, rashes, or lesions. Skin temperature appropriate. Not diaphoretic. HEAD: Right cranial incision healing well EYES: Pupils 3 mm, equal and round and reactive. Bilateral scleral icterus. NECK: Trachea midline. Midline tracheostomy. CARDIOVASCULAR: Regular rate and rhythm without murmurs, gallops, or rubs. Peripheral pulses symmetric. RESPIRATORY/CHEST: Symmetric, unlabored respirations. Breath sounds clear to auscultation. On room air. GASTROINTESTINAL: Abdomen, flat, only light palpation secondary to tenderness. Positive bowel sounds present. J-tube clamped. Abdominal binder in place. GENITOURINARY: Without palpable bladder distension. MUSCULOSKELETAL: Extremities without clubbing, cyanosis, or edema. No mottling or clubbing. Spontaneous movement seen in bilateral lower and right upper extremity, no movement seen in left upper extremity. NEUROLOGICAL: Awake, alert, oriented to self. Spontaneously moving right upper and bilateral lower extremities. Follows simple commands. PSYCHIATRIC: Calm. . Diagnostic Tests Laboratory Laboratory Tests Test 12/09/16 04:49 White Blood Count 7.4 TH/MM3 (4.0-11.0) Red Blood Count 3.48 MIL/MM3 (4.50-5.90) Hemoglobin 11.3 GM/DL (13.0-17.0) Hematocrit 34.2 % (39.0-51.0) Mean Corpuscular Volume 98.4 FL (80.0-100.0) Mean Corpuscular Hemoglobin 32.6 PG (27.0-34.0) Mean Corpuscular Hemoglobin Concent 33.1 % (32.0-36.0) Red Cell Distribution Width 16.2 % (11.6-17.2) Platelet Count 277 TH/MM3 (150-450) Mean Platelet Volume 8.9 FL (7.0-11.0) Neutrophils (%) (Auto) 45.6 % (16.0-70.0) Lymphocytes (%) (Auto) 38.9 % (9.0-44.0) Monocytes (%) (Auto) 10.9 % (0.0-8.0) Eosinophils (%) (Auto) 3.7 % (0.0-4.0) Basophils (%) (Auto) 0.9 % (0.0-2.0) Neutrophils # (Auto) 3.4 TH/MM3 (1.8-7.7) Lymphocytes # (Auto) 2.9 TH/MM3 (1.0-4.8) Monocytes # (Auto) 0.8 TH/MM3 (0-0.9) Eosinophils # (Auto) 0.3 TH/MM3 (0-0.4) Basophils # (Auto) 0.1 TH/MM3 (0-0.2) CBC Comment DIFF FINAL Differential Comment Blood Urea Nitrogen 17 MG/DL (7-18) Creatinine 0.63 MG/DL (0.60-1.30) Random Glucose 82 MG/DL (74-106) Calcium Level 8.7 MG/DL (8.5-10.1) Sodium Level 136 MEQ/L (136-145) Potassium Level 4.8 MEQ/L (3.5-5.1) Chloride Level 100 MEQ/L (98-107) Carbon Dioxide Level 31.0 MEQ/L (21.0-32.0) Anion Gap 5 MEQ/L (5-15) Estimat Glomerular Filtration Rate 130 ML/MIN (>89) Result Diagram: 12/09/16 0449 12/09/16 0449 Procedures 11/30/16- Ventriculostomy drain removed 11/25/16 - J-tube placed via open approach. 11/24/16 - tracheostomy placement 11/24/16 - attempted esophageal PEG placement, failed. 11/13/16 - intubation 11/13/16 - right frontal manas hole with placement of ventriculostomy catheter 11/13/16- left suboccipital craniectomy, evacuation of cerebellar hemorrhage. . Assessment and Plan Disease Oriented Problem List: (1) Status post craniectomy (2) Traumatic brain injury (3) Skull fractures (4) Intracranial hemorrhage (5) Major neurocognitive disorder as late effect of traumatic brain injury without behavioral disturbance Symptom Scale: (1) Dyspnea and respiratory abnormalities 0-10 Scale: Unable to quantify (2) Pain, generalized 0-10 Scale: Unable to quantify Pertinent Non-Medical Issues Psychosocial:He was born in [place] and lived in many countries around the [place], moving to the [facility] in 1997 to settle in [place]. 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 He currently works at [employer]. He speaks multiple languages to include Romansh, Ghanaian, Mongolian , Romanian and Sami. He lives with his mother to provide care for her, as she has Alzheimer's dementia. Spiritual: He was raised [employer] and would appreciate [facility] visits. Legal: He has 3 daughters who will serve as joint healthcare proxies. His mother has Alzheimer's dementia and is unable to participate in decision-making. Ethical issues impacting care: Circumstances surrounding patient's injury are not known, however, the [place] police are investigating and would like to speak with him regarding the circumstances once he is able to communicate. Important Contacts Adamscorrina Finn - [phone] Sloan Briseno - [phone] Charlene Finn - [phone] . Prognosis Patient suffered an extensive head injury requiring right frontal manas hole with placement of ventriculostomy catheter. The patient also required intubation , mechanical ventilation, with subsequent tracheostomy. PT/OT have been optimizing the patient's therapy and he is now able to ambulate in the hallway. Discharge planning is in process and he should be discharged with home health some time next week. He will likely continue to have sequelae of severe head trauma requiring extensive rehabilitation. Code Status: Full Code Plan PLAN: Legal decision maker: He has 3 daughters, Sloan Briseno, Charlene Margaritarachel and Susana Finn Goals: Aggressive CODE STATUS: Full code SYMPTOMS: * Pain -Currently receiving fentanyl patch 50mcg q 72 hours in conjunction with PRN Roxicodone 5mg q 6 hours for break through pain. Last pain medication administered 12/06/16 at 1931. Patient is currently not showing any signs of pain at this time. He will require frequent nursing assessments to evaluate changes in posture, countenance for possible pain. No recommendations at this time. * Dyspnea - Patient trached and on room aire. Remains at risk for dyspnea due to possible aspiration, potential infection, immobility. Receiving scheduled DuoNebs. No recommendations at this time. * Nausea - Resolved. Last dose of ondansetron 4mg utilized 11/27/16. Diet advanced to regular diet, receiving night feedings of Jevity at 60ml/hr. No recommendations at this time. * Palliative care will continue to follow the patient during hospital course as condition evolves, to assist patient/decision-maker with understanding of their medical conditions, weighing benefits/burdens of treatment options, for clarification of goals of treatment. Additionally will assist with any symptoms of palliative concern Attestation To help prompt me to consider important information that might be impacting today's encounter and assessment, information from prior notes written by myself or my colleagues may have been "brought forward" into today's note. My signature on this note, however, is an attestation that I personally performed the exam, history, and/or decision-making noted today, and, unless otherwise indicated, the interactions with patient, family, and staff as well as the review of records all occurred today. I also attest that the listed assessment and stated plan reflect my best clinical judgment today based on the combination of historical information, prior notes, and today's exam/ interactions. When time spent is documented, it refers only to time spent today by the signer, or if indicated, combined time spent today by collaborating physician/nurse practitioner. Lynette Wall Dec 09, 2016 12:00
--- NOTE | 2016-12-09 13:39 | HHI.FF ---
Face to Face Verification Diagnosis: (1) Traumatic brain injury (2) Intracranial hemorrhage (3) Major neurocognitive disorder as late effect of traumatic brain injury without behavioral disturbance (4) Skull fractures (5) Dyspnea and respiratory abnormalities (6) Subdural hemorrhage (7) Pain, generalized (8) Brain contusion (9) Status post craniectomy Physical Therapy Order: Evaluate and Treat, Improve ambulation, Strength and gait training Occupational Therapy Order: Evaluate and Treat, Gross motor coordination, Fine motor coordination Speech Therapy Order: To Improve: Speech and communication skills, Cognitive skills, Swallowing Home Health Nursing Order: Medical education Signs/symptoms of disease process Medication education-adverse effect Nursing assessment with vital signs I have seen patient Chuy Briseno on 12/09/16. My clinical findings support the need for the requested home health care services because: Ltd mobility - disease progression Deconditioned w/ increased weakness Limited ability to care for self High risk of falls I certify that my clinical findings support that this patient is homebound because: Post-op weakness Impaired cognitive ability/safety Unsteady gait/balance Unsafe to leave home unassisted [id number] bed/chair Rose Marie Brennan Dec 09, 2016 13:39
[2016-12-09] MEDS: MAGNESIUM HYDROXIDE SUSP 30 ML CUP PO SCH (21:49)
[2016-12-09] MEDS: traZODone HCL 50 MG TAB PO SCH (21:51)
[2016-12-10] VITALS (8 sets, daily range): BP systolic 98–124; BP diastolic 56–77; PULSE 68–81; RESP 9–20; TEMP 96–98.1; O2SAT 97–99
[2016-12-10] MEDS: SODIUM CHLORIDE 1 GRAM TAB PO SCH ×4 (01:02→20:52)
[2016-12-10] MEDS: ARTIFICIAL TEARS OPTH SOLN 15 ML BTL EACH EYE SCH ×3 (06:00→20:52)
--- NOTE | 2016-12-10 08:24 | HHI.PR ---
Neuropsych Emotional Emotional: Intact: Emotional, Anxious/Fearful, Depressed/Sad, Hostile/Resentful , Irritable/Angry/Frustrate, Labile, Constricted/Blunted Behavior Behavior: Intact: Behavior, Coping/Acceptance, Cooperative w/ Treatment, Motivation, Frustration Tolerance/[place], Impulsive/Agitated, Suicidal/Homicidal Risk Cognitive Cognitive: Severe: Cognitive, Attention/Concentration, Confused/Orientation, Insight/Awareness, Judgement/Problem-Solving, Memory Psychosocial Psychosocial: Intact: Psychosocial, Family/Other Adjustment, Realistic Expectation, Unable to Asses: Self-Esteem/Confidence Progress Notes/Response to Tx Contents of Sessions: Adjustment, Level of Consciousness Time with Patient: 15 minutes Premorbid psychological status Premorbid Cognitive, Emotional and Behavioral Status: Stable. The patient is originally from [facility] and has a solid work history prior to this injury. The patient has no psychiatric difficulties, as described above. Substance abuse history is unremarkable. Behavioral Reactions of Patient and Family/Support System: Stable. The patient s family is experiencing ongoing issues of adjustment given the nature of the injury, and this aspect of recovery will require ongoing monitoring. Emotional/Behavioral Status of Patient and Family/Support System: Stable. Pertinent issues, if appropriate to this patients clinical care, are described in detail above. Maximizing acute care outcome It is recommended that the patient be monitored for emergent behavioral impulsivity as the medical condition evolves. This patients neuropathological challenges may limit their rehabilitation potential going forward, and these challenges will require specialized therapeutic skills to maximize outcome. Additionally, the patients family is experiencing ongoing issues of adjustment given the traumatic nature of the injury, and they will need ongoing psychological assistance. Anticipated Problems Ongoing areas of concern will include behavioral impulsivity, lack of insight and judgment, which is expected to improve with time and treatment. Presently , the patient remains intubated and sedated. Treatment Plan This clinician will continue to follow with you throughout the course of this patients acute care treatment, and I will be available to meet with the patient s family/support system to facilitate their understanding and the ongoing care of their family member. The goals of neuropsychological intervention shall be both educational and supportive to the family/support system as is deemed clinically appropriate. [facility] Level: V:Confused-non agitated Impression This is a 61 year old man s/p TBI 2T probable fall. Diagnosis: (1) Major neurocognitive disorder as late effect of traumatic brain injury without behavioral disturbance Status: Acute Progress Note Narrative Ongoing follow-up of patient seen during daily trauma rounds. This is day 27 post injury. The patient is stable, but somnolent today. He exhibits automatic behaviors but not really comprehending commands. For example, he appears that he is following the thread of a conversation, but he is only reacting to the nonverbal communication of the conversation, not the context of what is being said. I suggest that when other health care providers "converse" with him they "dissociate" the context with the process, for example, say to him in a smiling voice, "all the puppies are !" He remains on Valproic Acid 250 TID and Trazodone 50 HS with good neurobehavioral control. He is [place] I will continue to follow. Johan Pierson PhD Dec 10, 2016 8:24 am
[2016-12-10] MEDS: FUROSEMIDE 40 MG/5 ML UNIT DOSE CUP NG SCH (09:31)
[2016-12-10] MEDS: hydrALAZINE HCL 25 MG TAB PO SCH ×2 (09:31→20:52)
[2016-12-10] MEDS: METOPROLOL TARTRATE 25 MG TAB PO SCH ×2 (09:32→20:52)
[2016-12-10] MEDS: ENOXAPARIN SODIUM 30 MG/0.3 ML SYRINGE SQ SCH ×2 (09:32→20:51)
[2016-12-10] MEDS: MEGESTROL ACETATE SUSP 400 MG/10 ML CUP PO SCH ×4 (09:32→20:52)
[2016-12-10] MEDS: POTASSIUM CHLORIDE 25 MEQ EFFERVESCENT TAB NG SCH (09:32)
[2016-12-10] MEDS: SENNOSIDES SYRUP 8.8 MG/5 ML CUP PO SCH (09:32)
[2016-12-10] MEDS: VALPROIC ACID SYRUP 250 MG/5 ML UDC PO SCH ×3 (09:32→17:33)
[2016-12-10] MEDS: FAMOTIDINE 20 MG TAB NG SCH ×2 (09:32→20:52)
[2016-12-10] MEDS: CHLORHEXIDINE GLUCONATE 0.12% 15 ML CUP SWISH-SPIT SCH ×2 (09:32→20:51)
[2016-12-10] MEDS: REMOVE OLD DURAGESIC (FENTANYL) PATCH T-DERMAL SCH (11:00)
--- NOTE | 2016-12-10 11:01 | HHI.PR ---
Subjective Subjective Notes PTD: 28 Sitting up in bed with eyes closed. Arouses easily. Patient can answer simple questions with "yes, No, and thank you." Objective Vitals/I&O Vital Signs Date Time Temp Pulse Resp B/P (MAP) Pulse Ox O2 Delivery O2 Flow Rate FiO2 12/10/16 08:00 96.2 73 17 111/74 (86) 97 12/09/16 17:56 21 12/08/16 09:08 Trach Collar 5.00 Labs Laboratory Tests Test 11/13/16 12:50 11/13/16 14:31 11/13/16 20:40 11/13/16 22:20 Bedside Hemoglobin 14.6 G/DL Bedside Hematocrit 43.0 % Prothrombin Time 11.7 SEC Prothromb Time International Ratio 1.1 RATIO Activated Partial Thromboplast Time 25.7 SEC Bedside Sodium 135 MMOL/L Bedside Potassium 4.3 MMOL/L Bedside Chloride 96 MMOL/L Bedside Blood Urea Nitrogen 11 MG/DL Bedside Creatinine 0.7 MG/DL Bedside Glucose 203 MG/DL Ethyl Alcohol Level LESS THAN 3 MG/DL CSF Volume (Tube 1) 2.0 ML CSF Supernatant Color (tube 1) CSF Gross Blood (Tube 1) CSF WBC (Tube 1) 439 /MM3 CSF RBC (Tube 1) 69126 /MM3 CSF Neutrophils 91 % CSF Lymphocytes 6 % CSF Monocytes 2 % CSF Eosinophils 1 % CSF Glucose 146 MG/DL CSF Total Protein 163.7 MG/DL Nasal Screen MRSA (PCR) MRSA NOT DETECTED Urine Opiates Screen NEG Urine Barbiturates Screen NEG Urine Amphetamines Screen NEG Urine Benzodiazepines Screen NEG Urine Cocaine Screen NEG Urine Cannabinoids Screen POS Test 11/14/16 04:05 11/14/16 12:30 11/19/16 10:42 11/20/16 04:30 Blood Urea Nitrogen 11 MG/DL Creatinine 0.67 MG/DL Random Glucose 149 MG/DL Total Protein 5.0 GM/DL Albumin 2.4 GM/DL Calcium Level 6.7 MG/DL Alkaline Phosphatase 45 U/L Aspartate Amino Transf (AST/SGOT) 92 U/L Alanine Aminotransferase (ALT/SGPT) 68 U/L Total Bilirubin 0.8 MG/DL Direct Bilirubin 0.5 MG/DL Sodium Level 137 MEQ/L Potassium Level 4.0 MEQ/L Chloride Level 106 MEQ/L Carbon Dioxide Level 23.9 MEQ/L Indirect Bilirubin 0.3 MG/DL Fibrinogen 257 mg/dL Urine Color YELLOW Urine Turbidity HAZY Urine pH 5.5 Urine Specific [place] 1.038 Urine Protein 30 mg/dL Urine Glucose (UA) 70 mg/dL Urine Ketones TRACE mg/dL Urine Occult Blood MOD Urine Nitrite NEG Urine Bilirubin NEG Urine Urobilinogen 2.0 MG/DL Urine Leukocyte Esterase TRACE Urine RBC 54 /hpf Urine WBC 8 /hpf Urine Squamous Epithelial Cells 2 /hpf Urine Transitional Epithelial Cells <1 /hpf Urine Mucus FEW /lpf Microscopic Urinalysis Comment CATH-CULTURE IND Protein Corrected Calcium 8.6 MG/DL Test 11/21/16 05:20 11/21/16 05:30 11/21/16 23:00 11/22/16 05:00 Blood Gas Puncture Site LEATHA Blood Gas Patient Temperature 98.6 Blood Gas HCO3 25 mmol/L Blood Gas Base Excess 0.6 mmol/L Blood Gas Oxygen Saturation 94 % Arterial Blood pH 7.41 Arterial Blood Partial Pressure CO2 40 mmHg Arterial Blood Partial Pressure O2 84 mmHg Arterial Blood Oxygen Content 11.8 Vol % Arterial Blood Carboxyhemoglobin 1.4 % Arterial Blood Methemoglobin 0.9 % Blood Gas Hemoglobin 8.8 G/DL Oxygen Delivery Device VENTILATOR Blood Gas Ventilator Setting PRVC14/500/1.0/+5 Blood Gas Inspired Oxygen 30 % Metamyelocytes 1 % Serum Osmolality 308 MOSM/KG Eosinophils % 1 % Basophils % 1 % Promyelocytes 1 % Plasma Cells 2 % Test 11/23/16 05:00 11/26/16 05:44 12/01/16 04:27 12/03/16 12:00 Differential Total Cells Counted 100 Neutrophils % (Manual) 71 % Band Neutrophils % 9 % Lymphocytes % 9 % Monocytes % 10 % Neutrophils # (Manual) 15.2 TH/MM3 Myelocytes 1 % Nucleated Red Blood Cells 1 /100 WBC Platelet Estimate NORMAL Platelet Morphology Comment NORMAL Polychromasia 2.0 % Hematology Comments Blood Urea Nitrogen 9 MG/DL Creatinine 0.30 MG/DL Random Glucose 102 MG/DL Total Protein 5.3 GM/DL Albumin 2.0 GM/DL Calcium Level 8.1 MG/DL Alkaline Phosphatase 87 U/L Aspartate Amino Transf (AST/SGOT) 45 U/L Alanine Aminotransferase (ALT/SGPT) 41 U/L Total Bilirubin 0.6 MG/DL Sodium Level 141 MEQ/L Potassium Level 3.6 MEQ/L Chloride Level 109 MEQ/L Carbon Dioxide Level 24.8 MEQ/L Stool C. difficile Toxin (PCR) NEGATIVE Stl C. difficile Toxin Epiderm 027 PRESUMPTIVE NEGATIVE Test 12/04/16 05:28 12/09/16 04:49 Blood Urea Nitrogen 5 MG/DL 17 MG/DL Creatinine 0.46 MG/DL 0.63 MG/DL Random Glucose 107 MG/DL 82 MG/DL Albumin 2.1 GM/DL Calcium Level 8.5 MG/DL 8.7 MG/DL Sodium Level 140 MEQ/L 136 MEQ/L Potassium Level 3.7 MEQ/L 4.8 MEQ/L Chloride Level 104 MEQ/L 100 MEQ/L Carbon Dioxide Level 28.7 MEQ/L 31.0 MEQ/L Prealbumin 9 MG/DL White Blood Count 7.4 TH/MM3 Red Blood Count 3.48 MIL/MM3 Hemoglobin 11.3 GM/DL Hematocrit 34.2 % Mean Corpuscular Volume 98.4 FL Mean Corpuscular Hemoglobin 32.6 PG Mean Corpuscular Hemoglobin Concent 33.1 % Red Cell Distribution Width 16.2 % Platelet Count 277 TH/MM3 Mean Platelet Volume 8.9 FL Neutrophils (%) (Auto) 45.6 % Lymphocytes (%) (Auto) 38.9 % Monocytes (%) (Auto) 10.9 % Eosinophils (%) (Auto) 3.7 % Basophils (%) (Auto) 0.9 % Neutrophils # (Auto) 3.4 TH/MM3 Lymphocytes # (Auto) 2.9 TH/MM3 Monocytes # (Auto) 0.8 TH/MM3 Eosinophils # (Auto) 0.3 TH/MM3 Basophils # (Auto) 0.1 TH/MM3 CBC Comment DIFF FINAL Differential Comment Anion Gap 5 MEQ/L Estimat Glomerular Filtration Rate 130 ML/MIN Narrative Exam GENERAL: This is a 61-year-old male lying in bed. No distress noted. SKIN: Warm and dry. HEAD: Atraumatic. Normocephalic. EYES: PERRLA ENT: No nasal bleeding or discharge. Mucous membranes pink and moist. NECK: Trachea midline. No JVD. CARDIOVASCULAR: Regular rate and rhythm. RESPIRATORY: No accessory muscle use. Lungs are clear to auscultation. Breath sounds equal bilaterally. No distress or dyspnea. GASTROINTESTINAL: BS + x 4 quads. Abdomen soft, non-tender, nondistended. MUSCULOSKELETAL: Extremities without cyanosis, or edema. + peripheral pulses x 4 extremities. Warm with good capillary refill and sensation. MAEW. NEUROLOGICAL: Asleep. 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 disturbance ICD Codes: S06.9X9S - Unspecified intracranial injury with loss of consciousness of unspecified duration, sequela; F02.80 - Dementia in other diseases classified elsewhere without behavioral disturbance Status: Acute (4) Dyspnea and respiratory abnormalities ICD Codes: R06.00 - Dyspnea, unspecified; R06.89 - Other abnormalities of breathing Status: Resolved (5) Pain, generalized ICD Codes: R52 - Pain, unspecified Status: Acute (6) Subdural hemorrhage ICD Codes: I62.00 - Nontraumatic subdural hemorrhage, unspecified Status: Acute (7) Brain contusion ICD Codes: S06.2X9A - Diffuse traumatic brain injury with loss of consciousness of unspecified duration, initial encounter Status: Acute (8) Skull fractures ICD Codes: S02.91XA - Unspecified fracture of skull, initial encounter for closed fracture Status: Acute (9) Status post craniectomy ICD Codes: Z98.890 - Other specified postprocedural states Status: Acute Assessment and Plan [place]: This is a 61-year-old male who was found down at home with an obvious scalp lac and raccoon eyes. GCS 5-6. Obtunded. He was intubated in the ED. + Cannabis. INJURIES: Skull fx SDH (temporal and parietal) LEFT cerebral contusions (w /compression of 4th ventricle) RIGHT temporal contusion LEFT parietal lobe contusion Procedures: 11/13: Intubated in the ED 11/13: Suboccipital craniectomy 11/24: BEDSIDE TRACH 11/25: Open jejunostomy placement 11/28: Ventric out 12/07: Downsized HUMAN RESOURCE ANALYST to #6 12/08: Decannulated self Consults: CCM. Neurosurgery. Pad care. Speech therapy. Rehabilitation medicine. Neuropsych. Marcell nurse liaison. Case management. Diet: Regular diet. Tolerating po diet. Encourage good po intake with each meal. Megace. Pulmonary: Encourage good pulmonary toileting. IS at bedside and pt encouraged to use. Rationale for use explained to patient, and verbalized understanding. Duo nebs. PAIN Management: Fentanyl patch 50 mcg. Roxicodone 5 mg q 6h. Behavior: Trazadone 50 HS. Valproic 250 TID Activity: OOB. PT x 7 DAYS and OT ordered. (cranial helmet) GI prophylaxis: Pepcid. Bowel regimen: Senna. MOM. Bisacodyl [place] PRN. LBM: 12/10 DVT prophylaxis: Mechanical VTE with SCDs. Chemical management with Lovenox 30 BID SQ. DC Planning: Case management consulted for assistance with final discharge disposition. Patient does not have insurance, therefore placement has been difficult. However, patient has been progressing very well. He is now tolerating a po diet and has been ambulating. PT has been intensified to 7 days a week to promote progress to discharge home. Spoke with the youngest daughter at the bedside. She is requesting for the patient to be transferred to the [facility] in [place]. Explained that the patient is stable for discharge and could be easily be discharged home at this time. The daughter would like him to have multimedia producer care, and has a family member who works at the [facility], therefore she would like the patient transferred there. Daughter states that she has an accepting physician at the [facility], so she is requesting the transfer. Explained the possible costs for the patient to travel to [place], however the daughter states that she was planning to drive the patient herself to [place] in her car. Explained that if he is to transfer to the [facility], that medical transport will need to be arranged, and that could cost the family several hundred to thousand dollars. It the daughter would like to drive the patient herself to [place], I could discharge the patient into her care and she could drive him to the [facility] However the daughter says that the patient needs to be transferred or the [place] physician will not accept him. Daughter states that she needs to talk to her older sister in [place]. Spoke with Jen in Case management for specifics for a transfer, and to assist the family with information on prices. Emotional support provided to patient and family at bedside and plan of care discussed. Discussed with RN at bedside. Patient is hemodynamically stable and being managed on the med/surg floor. The trauma team will round each day, and evaluate plan of care on a daily basis. Skull fx SDH, LEFT cerebral contusions RIGHT temporal contusion LEFT parietal lobe contusion Neurosurgery consulted and assisting in management and care 11/13: Suboccipital craniectomy with ventric placement 11/28: Ventriculostomy removed Trazodone 50 HS Valproic 250 TID for agitation/restlessness ST cognitive and swallow eval Toterating po Lovenox BID OOB QD- PT ordered x 7 days/ week Respiratory failure Supportive care 11/24: HUMAN RESOURCE ANALYST placement 11/25: Open jejunostomy placement 12/07: Downsized HUMAN RESOURCE ANALYST to #6 12/08: Self removed trach Oral care BID Suction PRN HTN Lopressor 25mg BID Hydralazine 25mg q8 Lasix 20mg QD KCl 20meq QD BP improved The exam, history, and the medical decision-making described in the above note were completed with the assistance of the mid-level provider. I reviewed and agree with the findings presented. I attest that I had a [id number] encounter with the patient on the same day, and personally performed and documented my assessment and findings in the medical record. Problem Qualifiers (1) Traumatic brain injury: (2) Brain contusion: Qualified Codes: S06.2X9A - Diffuse traumatic brain injury with loss of consciousness of unspecified duration, initial encounter (3) Skull fractures: Rose Marie Brennan Dec 10, 2016 11:01 Donavon Alfaro MD Dec 16, 2016 12:52
--- NOTE | 2016-12-10 11:01 | HHI.PR ---
Subjective Subjective Notes PTD: 28 Sitting up in bed with eyes closed. Arouses easily. Patient can answer simple questions with "yes, No, and thank you." Objective Vitals/I&O Vital Signs Date Time Temp Pulse Resp B/P (MAP) Pulse Ox O2 Delivery O2 Flow Rate FiO2 12/10/16 08:00 96.2 73 17 111/74 (86) 97 12/09/16 17:56 21 12/08/16 09:08 Trach Collar 5.00 Labs Laboratory Tests Test 11/13/16 12:50 11/13/16 14:31 11/13/16 20:40 11/13/16 22:20 Bedside Hemoglobin 14.6 G/DL Bedside Hematocrit 43.0 % Prothrombin Time 11.7 SEC Prothromb Time International Ratio 1.1 RATIO Activated Partial Thromboplast Time 25.7 SEC Bedside Sodium 135 MMOL/L Bedside Potassium 4.3 MMOL/L Bedside Chloride 96 MMOL/L Bedside Blood Urea Nitrogen 11 MG/DL Bedside Creatinine 0.7 MG/DL Bedside Glucose 203 MG/DL Ethyl Alcohol Level LESS THAN 3 MG/DL CSF Volume (Tube 1) 2.0 ML CSF Supernatant Color (tube 1) CSF Gross Blood (Tube 1) CSF WBC (Tube 1) 439 /MM3 CSF RBC (Tube 1) 50691 /MM3 CSF Neutrophils 91 % CSF Lymphocytes 6 % CSF Monocytes 2 % CSF Eosinophils 1 % CSF Glucose 146 MG/DL CSF Total Protein 163.7 MG/DL Nasal Screen MRSA (PCR) MRSA NOT DETECTED Urine Opiates Screen NEG Urine Barbiturates Screen NEG Urine Amphetamines Screen NEG Urine Benzodiazepines Screen NEG Urine Cocaine Screen NEG Urine Cannabinoids Screen POS Test 11/14/16 04:05 11/14/16 12:30 11/19/16 10:42 11/20/16 04:30 Blood Urea Nitrogen 11 MG/DL Creatinine 0.67 MG/DL Random Glucose 149 MG/DL Total Protein 5.0 GM/DL Albumin 2.4 GM/DL Calcium Level 6.7 MG/DL Alkaline Phosphatase 45 U/L Aspartate Amino Transf (AST/SGOT) 92 U/L Alanine Aminotransferase (ALT/SGPT) 68 U/L Total Bilirubin 0.8 MG/DL Direct Bilirubin 0.5 MG/DL Sodium Level 137 MEQ/L Potassium Level 4.0 MEQ/L Chloride Level 106 MEQ/L Carbon Dioxide Level 23.9 MEQ/L Indirect Bilirubin 0.3 MG/DL Fibrinogen 257 mg/dL Urine Color YELLOW Urine Turbidity HAZY Urine pH 5.5 Urine Specific [place] 1.038 Urine Protein 30 mg/dL Urine Glucose (UA) 70 mg/dL Urine Ketones TRACE mg/dL Urine Occult Blood MOD Urine Nitrite NEG Urine Bilirubin NEG Urine Urobilinogen 2.0 MG/DL Urine Leukocyte Esterase TRACE Urine RBC 54 /hpf Urine WBC 8 /hpf Urine Squamous Epithelial Cells 2 /hpf Urine Transitional Epithelial Cells <1 /hpf Urine Mucus FEW /lpf Microscopic Urinalysis Comment CATH-CULTURE IND Protein Corrected Calcium 8.6 MG/DL Test 11/21/16 05:20 11/21/16 05:30 11/21/16 23:00 11/22/16 05:00 Blood Gas Puncture Site LEATHA Blood Gas Patient Temperature 98.6 Blood Gas HCO3 25 mmol/L Blood Gas Base Excess 0.6 mmol/L Blood Gas Oxygen Saturation 94 % Arterial Blood pH 7.41 Arterial Blood Partial Pressure CO2 40 mmHg Arterial Blood Partial Pressure O2 84 mmHg Arterial Blood Oxygen Content 11.8 Vol % Arterial Blood Carboxyhemoglobin 1.4 % Arterial Blood Methemoglobin 0.9 % Blood Gas Hemoglobin 8.8 G/DL Oxygen Delivery Device VENTILATOR Blood Gas Ventilator Setting PRVC14/500/1.0/+5 Blood Gas Inspired Oxygen 30 % Metamyelocytes 1 % Serum Osmolality 308 MOSM/KG Eosinophils % 1 % Basophils % 1 % Promyelocytes 1 % Plasma Cells 2 % Test 11/23/16 05:00 11/26/16 05:44 12/01/16 04:27 12/03/16 12:00 Differential Total Cells Counted 100 Neutrophils % (Manual) 71 % Band Neutrophils % 9 % Lymphocytes % 9 % Monocytes % 10 % Neutrophils # (Manual) 15.2 TH/MM3 Myelocytes 1 % Nucleated Red Blood Cells 1 /100 WBC Platelet Estimate NORMAL Platelet Morphology Comment NORMAL Polychromasia 2.0 % Hematology Comments Blood Urea Nitrogen 9 MG/DL Creatinine 0.30 MG/DL Random Glucose 102 MG/DL Total Protein 5.3 GM/DL Albumin 2.0 GM/DL Calcium Level 8.1 MG/DL Alkaline Phosphatase 87 U/L Aspartate Amino Transf (AST/SGOT) 45 U/L Alanine Aminotransferase (ALT/SGPT) 41 U/L Total Bilirubin 0.6 MG/DL Sodium Level 141 MEQ/L Potassium Level 3.6 MEQ/L Chloride Level 109 MEQ/L Carbon Dioxide Level 24.8 MEQ/L Stool C. difficile Toxin (PCR) NEGATIVE Stl C. difficile Toxin Epiderm 027 PRESUMPTIVE NEGATIVE Test 12/04/16 05:28 12/09/16 04:49 Blood Urea Nitrogen 5 MG/DL 17 MG/DL Creatinine 0.46 MG/DL 0.63 MG/DL Random Glucose 107 MG/DL 82 MG/DL Albumin 2.1 GM/DL Calcium Level 8.5 MG/DL 8.7 MG/DL Sodium Level 140 MEQ/L 136 MEQ/L Potassium Level 3.7 MEQ/L 4.8 MEQ/L Chloride Level 104 MEQ/L 100 MEQ/L Carbon Dioxide Level 28.7 MEQ/L 31.0 MEQ/L Prealbumin 9 MG/DL White Blood Count 7.4 TH/MM3 Red Blood Count 3.48 MIL/MM3 Hemoglobin 11.3 GM/DL Hematocrit 34.2 % Mean Corpuscular Volume 98.4 FL Mean Corpuscular Hemoglobin 32.6 PG Mean Corpuscular Hemoglobin Concent 33.1 % Red Cell Distribution Width 16.2 % Platelet Count 277 TH/MM3 Mean Platelet Volume 8.9 FL Neutrophils (%) (Auto) 45.6 % Lymphocytes (%) (Auto) 38.9 % Monocytes (%) (Auto) 10.9 % Eosinophils (%) (Auto) 3.7 % Basophils (%) (Auto) 0.9 % Neutrophils # (Auto) 3.4 TH/MM3 Lymphocytes # (Auto) 2.9 TH/MM3 Monocytes # (Auto) 0.8 TH/MM3 Eosinophils # (Auto) 0.3 TH/MM3 Basophils # (Auto) 0.1 TH/MM3 CBC Comment DIFF FINAL Differential Comment Anion Gap 5 MEQ/L Estimat Glomerular Filtration Rate 130 ML/MIN Narrative Exam GENERAL: This is a 61-year-old male lying in bed. No distress noted. SKIN: Warm and dry. HEAD: Atraumatic. Normocephalic. EYES: PERRLA ENT: No nasal bleeding or discharge. Mucous membranes pink and moist. NECK: Trachea midline. No JVD. CARDIOVASCULAR: Regular rate and rhythm. RESPIRATORY: No accessory muscle use. Lungs are clear to auscultation. Breath sounds equal bilaterally. No distress or dyspnea. GASTROINTESTINAL: BS + x 4 quads. Abdomen soft, non-tender, nondistended. MUSCULOSKELETAL: Extremities without cyanosis, or edema. + peripheral pulses x 4 extremities. Warm with good capillary refill and sensation. MAEW. NEUROLOGICAL: Asleep. 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 disturbance ICD Codes: S06.9X9S - Unspecified intracranial injury with loss of consciousness of unspecified duration, sequela; F02.80 - Dementia in other diseases classified elsewhere without behavioral disturbance Status: Acute (4) Dyspnea and respiratory abnormalities ICD Codes: R06.00 - Dyspnea, unspecified; R06.89 - Other abnormalities of breathing Status: Resolved (5) Pain, generalized ICD Codes: R52 - Pain, unspecified Status: Acute (6) Subdural hemorrhage ICD Codes: I62.00 - Nontraumatic subdural hemorrhage, unspecified Status: Acute (7) Brain contusion ICD Codes: S06.2X9A - Diffuse traumatic brain injury with loss of consciousness of unspecified duration, initial encounter Status: Acute (8) Skull fractures ICD Codes: S02.91XA - Unspecified fracture of skull, initial encounter for closed fracture Status: Acute (9) Status post craniectomy ICD Codes: Z98.890 - Other specified postprocedural states Status: Acute Assessment and Plan [place]: This is a 61-year-old male who was found down at home with an obvious scalp lac and raccoon eyes. GCS 5-6. Obtunded. He was intubated in the ED. + Cannabis. INJURIES: Skull fx SDH (temporal and parietal) LEFT cerebral contusions (w /compression of 4th ventricle) RIGHT temporal contusion LEFT parietal lobe contusion Procedures: 11/13: Intubated in the ED 11/13: Suboccipital craniectomy 11/24: BEDSIDE TRACH 11/25: Open jejunostomy placement 11/28: Ventric out 12/07: Downsized SYSTEMS SUPPORT ENGINEER to #6 12/08: Decannulated self Consults: CCM. Neurosurgery. Pad care. Speech therapy. Rehabilitation medicine. Neuropsych. Marcell nurse liaison. Case management. Diet: Regular diet. Tolerating po diet. Encourage good po intake with each meal. Megace. Pulmonary: Encourage good pulmonary toileting. IS at bedside and pt encouraged to use. Rationale for use explained to patient, and verbalized understanding. Duo nebs. PAIN Management: Fentanyl patch 50 mcg. Roxicodone 5 mg q 6h. Behavior: Trazadone 50 HS. Valproic 250 TID Activity: OOB. PT x 7 DAYS and OT ordered. (cranial helmet) GI prophylaxis: Pepcid. Bowel regimen: Senna. MOM. Bisacodyl [place] PRN. LBM: 12/10 DVT prophylaxis: Mechanical VTE with SCDs. Chemical management with Lovenox 30 BID SQ. DC Planning: Case management consulted for assistance with final discharge disposition. Patient does not have insurance, therefore placement has been difficult. However, patient has been progressing very well. He is now tolerating a po diet and has been ambulating. PT has been intensified to 7 days a week to promote progress to discharge home. Spoke with the youngest daughter at the bedside. She is requesting for the patient to be transferred to the [facility] in [place]. Explained that the patient is stable for discharge and could be easily be discharged home at this time. The daughter would like him to have shipyard supervisor care, and has a family member who works at the [facility], therefore she would like the patient transferred there. Daughter states that she has an accepting physician at the [facility], so she is requesting the transfer. Explained the possible costs for the patient to travel to [place], however the daughter states that she was planning to drive the patient herself to [place] in her car. Explained that if he is to transfer to the [facility], that medical transport will need to be arranged, and that could cost the family several hundred to thousand dollars. It the daughter would like to drive the patient herself to [place], I could discharge the patient into her care and she could drive him to the [facility] However the daughter says that the patient needs to be transferred or the [place] physician will not accept him. Daughter states that she needs to talk to her older sister in [place]. Spoke with Jen in Case management for specifics for a transfer, and to assist the family with information on prices. Emotional support provided to patient and family at bedside and plan of care discussed. Discussed with RN at bedside. Patient is hemodynamically stable and being managed on the med/surg floor. The trauma team will round each day, and evaluate plan of care on a daily basis. Skull fx SDH, LEFT cerebral contusions RIGHT temporal contusion LEFT parietal lobe contusion Neurosurgery consulted and assisting in management and care 11/13: Suboccipital craniectomy with ventric placement 11/28: Ventriculostomy removed Trazodone 50 HS Valproic 250 TID for agitation/restlessness ST cognitive and swallow eval Toterating po Lovenox BID OOB QD- PT ordered x 7 days/ week Respiratory failure Supportive care 11/24: SYSTEMS SUPPORT ENGINEER placement 11/25: Open jejunostomy placement 12/07: Downsized SYSTEMS SUPPORT ENGINEER to #6 12/08: Self removed trach Oral care BID Suction PRN HTN Lopressor 25mg BID Hydralazine 25mg q8 Lasix 20mg QD KCl 20meq QD BP improved The exam, history, and the medical decision-making described in the above note were completed with the assistance of the mid-level provider. I reviewed and agree with the findings presented. I attest that I had a [id number] encounter with the patient on the same day, and personally performed and documented my assessment and findings in the medical record. Problem Qualifiers (1) Traumatic brain injury: (2) Brain contusion: Qualified Codes: S06.2X9A - Diffuse traumatic brain injury with loss of consciousness of unspecified duration, initial encounter (3) Skull fractures: Rose Marie Brennan Dec 10, 2016 11:01 Donavon Alfaro MD Dec 16, 2016 12:52
--- NOTE | 2016-12-10 11:01 | HHI.PR ---
Subjective Subjective Notes PTD: 28 Sitting up in bed with eyes closed. Arouses easily. Patient can answer simple questions with "yes, No, and thank you." Objective Vitals/I&O Vital Signs Date Time Temp Pulse Resp B/P (MAP) Pulse Ox O2 Delivery O2 Flow Rate FiO2 12/10/16 08:00 96.2 73 17 111/74 (86) 97 12/09/16 17:56 21 12/08/16 09:08 Trach Collar 5.00 Labs Laboratory Tests Test 11/13/16 12:50 11/13/16 14:31 11/13/16 20:40 11/13/16 22:20 Bedside Hemoglobin 14.6 G/DL Bedside Hematocrit 43.0 % Prothrombin Time 11.7 SEC Prothromb Time International Ratio 1.1 RATIO Activated Partial Thromboplast Time 25.7 SEC Bedside Sodium 135 MMOL/L Bedside Potassium 4.3 MMOL/L Bedside Chloride 96 MMOL/L Bedside Blood Urea Nitrogen 11 MG/DL Bedside Creatinine 0.7 MG/DL Bedside Glucose 203 MG/DL Ethyl Alcohol Level LESS THAN 3 MG/DL CSF Volume (Tube 1) 2.0 ML CSF Supernatant Color (tube 1) CSF Gross Blood (Tube 1) CSF WBC (Tube 1) 439 /MM3 CSF RBC (Tube 1) 03040 /MM3 CSF Neutrophils 91 % CSF Lymphocytes 6 % CSF Monocytes 2 % CSF Eosinophils 1 % CSF Glucose 146 MG/DL CSF Total Protein 163.7 MG/DL Nasal Screen MRSA (PCR) MRSA NOT DETECTED Urine Opiates Screen NEG Urine Barbiturates Screen NEG Urine Amphetamines Screen NEG Urine Benzodiazepines Screen NEG Urine Cocaine Screen NEG Urine Cannabinoids Screen POS Test 11/14/16 04:05 11/14/16 12:30 11/19/16 10:42 11/20/16 04:30 Blood Urea Nitrogen 11 MG/DL Creatinine 0.67 MG/DL Random Glucose 149 MG/DL Total Protein 5.0 GM/DL Albumin 2.4 GM/DL Calcium Level 6.7 MG/DL Alkaline Phosphatase 45 U/L Aspartate Amino Transf (AST/SGOT) 92 U/L Alanine Aminotransferase (ALT/SGPT) 68 U/L Total Bilirubin 0.8 MG/DL Direct Bilirubin 0.5 MG/DL Sodium Level 137 MEQ/L Potassium Level 4.0 MEQ/L Chloride Level 106 MEQ/L Carbon Dioxide Level 23.9 MEQ/L Indirect Bilirubin 0.3 MG/DL Fibrinogen 257 mg/dL Urine Color YELLOW Urine Turbidity HAZY Urine pH 5.5 Urine Specific [place] 1.038 Urine Protein 30 mg/dL Urine Glucose (UA) 70 mg/dL Urine Ketones TRACE mg/dL Urine Occult Blood MOD Urine Nitrite NEG Urine Bilirubin NEG Urine Urobilinogen 2.0 MG/DL Urine Leukocyte Esterase TRACE Urine RBC 54 /hpf Urine WBC 8 /hpf Urine Squamous Epithelial Cells 2 /hpf Urine Transitional Epithelial Cells <1 /hpf Urine Mucus FEW /lpf Microscopic Urinalysis Comment CATH-CULTURE IND Protein Corrected Calcium 8.6 MG/DL Test 11/21/16 05:20 11/21/16 05:30 11/21/16 23:00 11/22/16 05:00 Blood Gas Puncture Site LEATHA Blood Gas Patient Temperature 98.6 Blood Gas HCO3 25 mmol/L Blood Gas Base Excess 0.6 mmol/L Blood Gas Oxygen Saturation 94 % Arterial Blood pH 7.41 Arterial Blood Partial Pressure CO2 40 mmHg Arterial Blood Partial Pressure O2 84 mmHg Arterial Blood Oxygen Content 11.8 Vol % Arterial Blood Carboxyhemoglobin 1.4 % Arterial Blood Methemoglobin 0.9 % Blood Gas Hemoglobin 8.8 G/DL Oxygen Delivery Device VENTILATOR Blood Gas Ventilator Setting PRVC14/500/1.0/+5 Blood Gas Inspired Oxygen 30 % Metamyelocytes 1 % Serum Osmolality 308 MOSM/KG Eosinophils % 1 % Basophils % 1 % Promyelocytes 1 % Plasma Cells 2 % Test 11/23/16 05:00 11/26/16 05:44 12/01/16 04:27 12/03/16 12:00 Differential Total Cells Counted 100 Neutrophils % (Manual) 71 % Band Neutrophils % 9 % Lymphocytes % 9 % Monocytes % 10 % Neutrophils # (Manual) 15.2 TH/MM3 Myelocytes 1 % Nucleated Red Blood Cells 1 /100 WBC Platelet Estimate NORMAL Platelet Morphology Comment NORMAL Polychromasia 2.0 % Hematology Comments Blood Urea Nitrogen 9 MG/DL Creatinine 0.30 MG/DL Random Glucose 102 MG/DL Total Protein 5.3 GM/DL Albumin 2.0 GM/DL Calcium Level 8.1 MG/DL Alkaline Phosphatase 87 U/L Aspartate Amino Transf (AST/SGOT) 45 U/L Alanine Aminotransferase (ALT/SGPT) 41 U/L Total Bilirubin 0.6 MG/DL Sodium Level 141 MEQ/L Potassium Level 3.6 MEQ/L Chloride Level 109 MEQ/L Carbon Dioxide Level 24.8 MEQ/L Stool C. difficile Toxin (PCR) NEGATIVE Stl C. difficile Toxin Epiderm 027 PRESUMPTIVE NEGATIVE Test 12/04/16 05:28 12/09/16 04:49 Blood Urea Nitrogen 5 MG/DL 17 MG/DL Creatinine 0.46 MG/DL 0.63 MG/DL Random Glucose 107 MG/DL 82 MG/DL Albumin 2.1 GM/DL Calcium Level 8.5 MG/DL 8.7 MG/DL Sodium Level 140 MEQ/L 136 MEQ/L Potassium Level 3.7 MEQ/L 4.8 MEQ/L Chloride Level 104 MEQ/L 100 MEQ/L Carbon Dioxide Level 28.7 MEQ/L 31.0 MEQ/L Prealbumin 9 MG/DL White Blood Count 7.4 TH/MM3 Red Blood Count 3.48 MIL/MM3 Hemoglobin 11.3 GM/DL Hematocrit 34.2 % Mean Corpuscular Volume 98.4 FL Mean Corpuscular Hemoglobin 32.6 PG Mean Corpuscular Hemoglobin Concent 33.1 % Red Cell Distribution Width 16.2 % Platelet Count 277 TH/MM3 Mean Platelet Volume 8.9 FL Neutrophils (%) (Auto) 45.6 % Lymphocytes (%) (Auto) 38.9 % Monocytes (%) (Auto) 10.9 % Eosinophils (%) (Auto) 3.7 % Basophils (%) (Auto) 0.9 % Neutrophils # (Auto) 3.4 TH/MM3 Lymphocytes # (Auto) 2.9 TH/MM3 Monocytes # (Auto) 0.8 TH/MM3 Eosinophils # (Auto) 0.3 TH/MM3 Basophils # (Auto) 0.1 TH/MM3 CBC Comment DIFF FINAL Differential Comment Anion Gap 5 MEQ/L Estimat Glomerular Filtration Rate 130 ML/MIN Narrative Exam GENERAL: This is a 61-year-old male lying in bed. No distress noted. SKIN: Warm and dry. HEAD: Atraumatic. Normocephalic. EYES: PERRLA ENT: No nasal bleeding or discharge. Mucous membranes pink and moist. NECK: Trachea midline. No JVD. CARDIOVASCULAR: Regular rate and rhythm. RESPIRATORY: No accessory muscle use. Lungs are clear to auscultation. Breath sounds equal bilaterally. No distress or dyspnea. GASTROINTESTINAL: BS + x 4 quads. Abdomen soft, non-tender, nondistended. MUSCULOSKELETAL: Extremities without cyanosis, or edema. + peripheral pulses x 4 extremities. Warm with good capillary refill and sensation. MAEW. NEUROLOGICAL: Asleep. 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 disturbance ICD Codes: S06.9X9S - Unspecified intracranial injury with loss of consciousness of unspecified duration, sequela; F02.80 - Dementia in other diseases classified elsewhere without behavioral disturbance Status: Acute (4) Dyspnea and respiratory abnormalities ICD Codes: R06.00 - Dyspnea, unspecified; R06.89 - Other abnormalities of breathing Status: Resolved (5) Pain, generalized ICD Codes: R52 - Pain, unspecified Status: Acute (6) Subdural hemorrhage ICD Codes: I62.00 - Nontraumatic subdural hemorrhage, unspecified Status: Acute (7) Brain contusion ICD Codes: S06.2X9A - Diffuse traumatic brain injury with loss of consciousness of unspecified duration, initial encounter Status: Acute (8) Skull fractures ICD Codes: S02.91XA - Unspecified fracture of skull, initial encounter for closed fracture Status: Acute (9) Status post craniectomy ICD Codes: Z98.890 - Other specified postprocedural states Status: Acute Assessment and Plan [place]: This is a 61-year-old male who was found down at home with an obvious scalp lac and raccoon eyes. GCS 5-6. Obtunded. He was intubated in the ED. + Cannabis. INJURIES: Skull fx SDH (temporal and parietal) LEFT cerebral contusions (w /compression of 4th ventricle) RIGHT temporal contusion LEFT parietal lobe contusion Procedures: 11/13: Intubated in the ED 11/13: Suboccipital craniectomy 11/24: BEDSIDE TRACH 11/25: Open jejunostomy placement 11/28: Ventric out 12/07: Downsized [employer] HAND to #6 12/08: Decannulated self Consults: CCM. Neurosurgery. Pad care. Speech therapy. Rehabilitation medicine. Neuropsych. [facility] nurse liaison. Case management. Diet: Regular diet. Tolerating po diet. Encourage good po intake with each meal. Megace. Pulmonary: Encourage good pulmonary toileting. IS at bedside and pt encouraged to use. Rationale for use explained to patient, and verbalized understanding. Duo nebs. PAIN Management: Fentanyl patch 50 mcg. Roxicodone 5 mg q 6h. Behavior: Trazadone 50 HS. Valproic 250 TID Activity: OOB. PT x 7 DAYS and OT ordered. (cranial helmet) GI prophylaxis: Pepcid. Bowel regimen: Senna. MOM. Bisacodyl [place] PRN. LBM: 12/10 DVT prophylaxis: Mechanical VTE with SCDs. Chemical management with Lovenox 30 BID SQ. DC Planning: Case management consulted for assistance with final discharge disposition. Patient does not have insurance, therefore placement has been difficult. However, patient has been progressing very well. He is now tolerating a po diet and has been ambulating. PT has been intensified to 7 days a week to promote progress to discharge home. Spoke with the youngest daughter at the bedside. She is requesting for the patient to be [facility] to [facility] in [place]. Explained that the patient is stable for discharge and could be easily be discharged home at this time. The daughter would like him to have realtime captioner care, and has a family member who works at the [facility], therefore she would like the patient transferred there. Daughter states that she has an accepting physician at the [facility], so she is requesting the transfer. Explained the possible costs for the patient to travel to [place], however the daughter states that she was planning to drive the patient herself to [place] in her car. Explained that if he is to transfer to the [facility], that medical transport will need to be arranged, and that could cost the family several hundred to thousand dollars. It the daughter would like to drive the patient herself to [place], I could discharge the patient into her care and she could drive him to the [facility] However the daughter says that the patient needs to be transferred or the [facility] physician will not accept him. Daughter states that she needs to talk to her older sister in [place]. Spoke with Jen in Case management for specifics for a transfer, and to assist the family with information on prices. Emotional support provided to patient and family at bedside and plan of care discussed. Discussed with RN at bedside. Patient is hemodynamically stable and being managed on the med/surg floor. The trauma team will round each day, and evaluate plan of care on a daily basis. Skull fx SDH, LEFT cerebral contusions RIGHT temporal contusion LEFT parietal lobe contusion Neurosurgery consulted and assisting in management and care 11/13: Suboccipital craniectomy with ventric placement 11/28: Ventriculostomy removed Trazodone 50 HS Valproic 250 TID for agitation/restlessness ST cognitive and swallow eval Toterating po Lovenox BID OOB QD- PT ordered x 7 days/ week Respiratory failure Supportive care 11/24: WO[employer] HAND placement 11/25: Open jejunostomy placement 12/07: Downsized [employer] HAND to #6 12/08: Self removed trach Oral care BID Suction PRN HTN Lopressor 25mg BID Hydralazine 25mg q8 Lasix 20mg QD KCl 20meq QD BP improved The exam, history, and the medical decision-making described in the above note were completed with the assistance of the mid-level provider. I reviewed and agree with the findings presented. I attest that I had a [id number] encounter with the patient on the same day, and personally performed and documented my assessment and findings in the medical record. Problem Qualifiers (1) Traumatic brain injury: (2) Brain contusion: Qualified Codes: S06.2X9A - Diffuse traumatic brain injury with loss of consciousness of unspecified duration, initial encounter (3) Skull fractures: Rose Marie Brennan Dec 10, 2016 11:01 Donavon Alfaro MD Dec 16, 2016 12:52
[2016-12-10] MEDS: fentaNYL 50 MCG/HR PATCH T-DERMAL SCH (12:09)
[2016-12-10] MEDS: traZODone HCL 50 MG TAB PO SCH (20:52)
[2016-12-10] MEDS: MAGNESIUM HYDROXIDE SUSP 30 ML CUP PO SCH (20:52)
[2016-12-11] VITALS (7 sets, daily range): BP systolic 100–137; BP diastolic 56–78; PULSE 61–81; RESP 16–20; TEMP 95.9–98.1; O2SAT 96–100
[2016-12-11] MEDS: SODIUM CHLORIDE 1 GRAM TAB PO SCH ×4 (02:05→20:40)
[2016-12-11] MEDS: ARTIFICIAL TEARS OPTH SOLN 15 ML BTL EACH EYE SCH ×3 (05:33→20:41)
--- NOTE | 2016-12-11 08:19 | HHI.PR ---
Neuropsych Emotional Emotional: Intact: Emotional, Anxious/Fearful, Depressed/Sad, Hostile/Resentful , Irritable/Angry/Frustrate, Labile, Constricted/Blunted Behavior Behavior: Intact: Behavior, Coping/Acceptance, Cooperative w/ Treatment, Motivation, Frustration Tolerance/[place], Suicidal/Homicidal Risk, Mild: Impulsive/ Agitated Cognitive Cognitive: Severe: Cognitive, Attention/Concentration, Confused/Orientation, Insight/Awareness, Judgement/Problem-Solving, Memory Psychosocial Psychosocial: Intact: Psychosocial, Family/Other Adjustment, Realistic Expectation, Unable to Asses: Self-Esteem/Confidence Progress Notes/Response to Tx Contents of Sessions: Adjustment, Level of Consciousness Time with Patient: 30 minutes Premorbid psychological status Premorbid Cognitive, Emotional and Behavioral Status: Stable. The patient is originally from [facility] and has a solid work history prior to this injury. The patient has no psychiatric difficulties, as described above. Substance abuse history is unremarkable. Behavioral Reactions of Patient and Family/Support System: Stable. The patient s family is experiencing ongoing issues of adjustment given the nature of the injury, and this aspect of recovery will require ongoing monitoring. Emotional/Behavioral Status of Patient and Family/Support System: Stable. Pertinent issues, if appropriate to this patients clinical care, are described in detail above. Maximizing acute care outcome It is recommended that the patient be monitored for emergent behavioral impulsivity as the medical condition evolves. This patients neuropathological challenges may limit their rehabilitation potential going forward, and these challenges will require specialized therapeutic skills to maximize outcome. Additionally, the patients family is experiencing ongoing issues of adjustment given the traumatic nature of the injury, and they will need ongoing psychological assistance. Anticipated Problems Ongoing areas of concern will include behavioral impulsivity, lack of insight and judgment, which is expected to improve with time and treatment. Presently , the patient remains intubated and sedated. Treatment Plan This clinician will continue to follow with you throughout the course of this patients acute care treatment, and I will be available to meet with the patient s family/support system to facilitate their understanding and the ongoing care of their family member. The goals of neuropsychological intervention shall be both educational and supportive to the family/support system as is deemed clinically appropriate. [facility] Level: V:Confused-non agitated Impression This is a 61 year old man s/p TBI 2T probable fall. Diagnosis: (1) Major neurocognitive disorder as late effect of traumatic brain injury without behavioral disturbance Status: Acute Progress Note Narrative Ongoing follow-up of patient seen during daily trauma rounds. This is day 28 post injury. The patient is neurobehaviorally stable, at [place]. He is now following some basic commands, and is improving from a neurobehavioral standpoint. He continues to demonstrate impaired insight, awareness and judgment. I talked with the Daughter who lives in [facility] yesterday, issues similar to what was described in GRACE Carlton's note from yesterday. He remains on Valproic Acid 250 TID and Trazodone 50 HS with good neurobehavioral control. I will continue to follow. Johan Pierson PhD Dec 11, 2016 8:19 am
--- NOTE | 2016-12-11 08:19 | HHI.PR ---
Neuropsych Emotional Emotional: Intact: Emotional, Anxious/Fearful, Depressed/Sad, Hostile/Resentful , Irritable/Angry/Frustrate, Labile, Constricted/Blunted Behavior Behavior: Intact: Behavior, Coping/Acceptance, Cooperative w/ Treatment, Motivation, Frustration Tolerance/[place], Suicidal/Homicidal Risk, Mild: Impulsive/ Agitated Cognitive Cognitive: Severe: Cognitive, Attention/Concentration, Confused/Orientation, Insight/Awareness, Judgement/Problem-Solving, Memory Psychosocial Psychosocial: Intact: Psychosocial, Family/Other Adjustment, Realistic Expectation, Unable to Asses: Self-Esteem/Confidence Progress Notes/Response to Tx Contents of Sessions: Adjustment, Level of Consciousness Time with Patient: 30 minutes Premorbid psychological status Premorbid Cognitive, Emotional and Behavioral Status: Stable. The patient is originally from [facility] and has a solid work history prior to this injury. The patient has no psychiatric difficulties, as described above. Substance abuse history is unremarkable. Behavioral Reactions of Patient and Family/Support System: Stable. The patient s family is experiencing ongoing issues of adjustment given the nature of the injury, and this aspect of recovery will require ongoing monitoring. Emotional/Behavioral Status of Patient and Family/Support System: Stable. Pertinent issues, if appropriate to this patients clinical care, are described in detail above. Maximizing acute care outcome It is recommended that the patient be monitored for emergent behavioral impulsivity as the medical condition evolves. This patients neuropathological challenges may limit their rehabilitation potential going forward, and these challenges will require specialized therapeutic skills to maximize outcome. Additionally, the patients family is experiencing ongoing issues of adjustment given the traumatic nature of the injury, and they will need ongoing psychological assistance. Anticipated Problems Ongoing areas of concern will include behavioral impulsivity, lack of insight and judgment, which is expected to improve with time and treatment. Presently , the patient remains intubated and sedated. Treatment Plan This clinician will continue to follow with you throughout the course of this patients acute care treatment, and I will be available to meet with the patient s family/support system to facilitate their understanding and the ongoing care of their family member. The goals of neuropsychological intervention shall be both educational and supportive to the family/support system as is deemed clinically appropriate. [facility] Level: V:Confused-non agitated Impression This is a 61 year old man s/p TBI 2T probable fall. Diagnosis: (1) Major neurocognitive disorder as late effect of traumatic brain injury without behavioral disturbance Status: Acute Progress Note Narrative Ongoing follow-up of patient seen during daily trauma rounds. This is day 28 post injury. The patient is neurobehaviorally stable, at [place]. He is now following some basic commands, and is improving from a neurobehavioral standpoint. He continues to demonstrate impaired insight, awareness and judgment. I talked with the Daughter who lives in [facility] yesterday, issues similar to what was described in GRACE Carlton's note from yesterday. He remains on Valproic Acid 250 TID and Trazodone 50 HS with good neurobehavioral control. I will continue to follow. Johan Pierson PhD Dec 11, 2016 8:19 am
--- NOTE | 2016-12-11 08:19 | HHI.PR ---
Neuropsych Emotional Emotional: Intact: Emotional, Anxious/Fearful, Depressed/Sad, Hostile/Resentful , Irritable/Angry/Frustrate, Labile, Constricted/Blunted Behavior Behavior: Intact: Behavior, Coping/Acceptance, Cooperative w/ Treatment, Motivation, Frustration Tolerance/[place], Suicidal/Homicidal Risk, Mild: Impulsive/ Agitated Cognitive Cognitive: Severe: Cognitive, Attention/Concentration, Confused/Orientation, Insight/Awareness, Judgement/Problem-Solving, Memory Psychosocial Psychosocial: Intact: Psychosocial, Family/Other Adjustment, Realistic Expectation, Unable to Asses: Self-Esteem/Confidence Progress Notes/Response to Tx Contents of Sessions: Adjustment, Level of Consciousness Time with Patient: 30 minutes Premorbid psychological status Premorbid Cognitive, Emotional and Behavioral Status: Stable. The patient is originally from [facility] and has a solid work history prior to this injury. The patient has no psychiatric difficulties, as described above. Substance abuse history is unremarkable. Behavioral Reactions of Patient and Family/Support System: Stable. The patient s family is experiencing ongoing issues of adjustment given the nature of the injury, and this aspect of recovery will require ongoing monitoring. Emotional/Behavioral Status of Patient and Family/Support System: Stable. Pertinent issues, if appropriate to this patients clinical care, are described in detail above. Maximizing acute care outcome It is recommended that the patient be monitored for emergent behavioral impulsivity as the medical condition evolves. This patients neuropathological challenges may limit their rehabilitation potential going forward, and these challenges will require specialized therapeutic skills to maximize outcome. Additionally, the patients family is experiencing ongoing issues of adjustment given the traumatic nature of the injury, and they will need ongoing psychological assistance. Anticipated Problems Ongoing areas of concern will include behavioral impulsivity, lack of insight and judgment, which is expected to improve with time and treatment. Presently , the patient remains intubated and sedated. Treatment Plan This clinician will continue to follow with you throughout the course of this patients acute care treatment, and I will be available to meet with the patient s family/support system to facilitate their understanding and the ongoing care of their family member. The goals of neuropsychological intervention shall be both educational and supportive to the family/support system as is deemed clinically appropriate. [facility] Level: V:Confused-non agitated Impression This is a 61 year old man s/p TBI 2T probable fall. Diagnosis: (1) Major neurocognitive disorder as late effect of traumatic brain injury without behavioral disturbance Status: Acute Progress Note Narrative Ongoing follow-up of patient seen during daily trauma rounds. This is day 28 post injury. The patient is neurobehaviorally stable, at [place]. He is now following some basic commands, and is improving from a neurobehavioral standpoint. He continues to demonstrate impaired insight, awareness and judgment. I talked with the Daughter who lives in [facility] yesterday, issues similar to what was described in GRACE Carlton's note from yesterday. He remains on Valproic Acid 250 TID and Trazodone 50 HS with good neurobehavioral control. I will continue to follow. Johan Pierson PhD Dec 11, 2016 8:19 am
[2016-12-11] MEDS: POTASSIUM CHLORIDE 25 MEQ EFFERVESCENT TAB NG SCH (09:44)
[2016-12-11] MEDS: FUROSEMIDE 40 MG/5 ML UNIT DOSE CUP NG SCH (09:46)
[2016-12-11] MEDS: MEGESTROL ACETATE SUSP 400 MG/10 ML CUP PO SCH ×4 (09:47→20:40)
[2016-12-11] MEDS: FAMOTIDINE 20 MG TAB NG SCH ×2 (09:48→20:39)
[2016-12-11] MEDS: hydrALAZINE HCL 25 MG TAB PO SCH ×2 (09:48→20:39)
[2016-12-11] MEDS: METOPROLOL TARTRATE 25 MG TAB PO SCH ×2 (09:48→20:39)
[2016-12-11] MEDS: ENOXAPARIN SODIUM 30 MG/0.3 ML SYRINGE SQ SCH ×2 (09:51→20:39)
[2016-12-11] MEDS: VALPROIC ACID SYRUP 250 MG/5 ML UDC PO SCH ×3 (09:52→17:31)
[2016-12-11] MEDS: SENNOSIDES SYRUP 8.8 MG/5 ML CUP PO SCH (10:00)
[2016-12-11] MEDS: CHLORHEXIDINE GLUCONATE 0.12% 15 ML CUP SWISH-SPIT SCH ×2 (10:00→20:41)
--- NOTE | 2016-12-11 10:16 | HHI.PR ---
Subjective Subjective Notes PTD: 29 Patient OOB and sitting in a chair. No distress noted. Says, "Hello. I'm fine." Will shake my hand when I extend my hand to him. Objective Vitals/I&O Vital Signs Date Time Temp Pulse Resp B/P (MAP) Pulse Ox O2 Delivery O2 Flow Rate FiO2 12/11/16 08:00 96.5 70 17 130/70 (90) 97 12/09/16 17:56 21 12/08/16 09:08 Trach Collar 5.00 Labs Date/Time Source Procedure Growth Status 11/24/16 06:00 Blood Peripheral Aerobic Blood Culture - Final NO GROWTH IN 5 DAYS Complete 11/24/16 06:00 Blood Peripheral Anaerobic Blood Culture - Final NO GROWTH IN 5 DAYS Complete 11/13/16 14:31 Cerebral Spinal Fluid Shunt Fluid Fungal Smear - Final NO FUNGAL ELEMENTS SEEN. Resulted 11/13/16 14:31 Cerebral Spinal Fluid Shunt Fluid Fungal Culture - Preliminary NO GROWTH IN 3 WEEKS Resulted 11/23/16 18:00 Sputum Endotracheal Gram Stain - Final Complete 11/23/16 18:00 Sputum Culture - Final Escherichia Coli Complete 11/23/16 18:00 Urine Catheterized Urine Urine Culture - Final NO GROWTH IN 48 HOURS. Complete Narrative Exam GENERAL: This is a 61-year-old male OOB in chair. Wearing cranial helmet. No distress noted. SKIN: Warm and dry. HEAD: Atraumatic. Normocephalic. EYES: PERRLA ENT: No nasal bleeding or discharge. Mucous membranes pink and moist. NECK: Trachea midline. No JVD. CARDIOVASCULAR: Regular rate and rhythm. RESPIRATORY: No accessory muscle use. Lungs are clear to auscultation. Breath sounds equal bilaterally. No distress or dyspnea. GASTROINTESTINAL: BS + x 4 quads. Abdomen soft, non-tender, nondistended. MUSCULOSKELETAL: Extremities without cyanosis, or edema. + peripheral pulses x 4 extremities. Warm with good capillary refill and sensation. MAEW. NEUROLOGICAL: Awake and alert. Answers questions with one-two word answers. 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 disturbance ICD Codes: S06.9X9S - Unspecified intracranial injury with loss of consciousness of unspecified duration, sequela; F02.80 - Dementia in other diseases classified elsewhere without behavioral disturbance Status: Acute (4) Dyspnea and respiratory abnormalities ICD Codes: R06.00 - Dyspnea, unspecified; R06.89 - Other abnormalities of breathing Status: Resolved (5) Pain, generalized ICD Codes: R52 - Pain, unspecified Status: Acute (6) Subdural hemorrhage ICD Codes: I62.00 - Nontraumatic subdural hemorrhage, unspecified Status: Acute (7) Brain contusion ICD Codes: S06.2X9A - Diffuse traumatic brain injury with loss of consciousness of unspecified duration, initial encounter Status: Acute (8) Skull fractures ICD Codes: S02.91XA - Unspecified fracture of skull, initial encounter for closed fracture Status: Acute (9) Status post craniectomy ICD Codes: Z98.890 - Other specified postprocedural states Status: Acute Assessment and Plan [place]: This is a 61-year-old male who was found down at home with an obvious scalp lac and raccoon eyes. GCS 5-6. Obtunded. He was intubated in the ED. + Cannabis. INJURIES: Skull fx SDH (temporal and parietal) LEFT cerebral contusions (w /compression of 4th ventricle) RIGHT temporal contusion LEFT parietal lobe contusion Procedures: 11/13: Intubated in the ED 11/13: Suboccipital craniectomy 11/24: BEDSIDE TRACH 11/25: Open jejunostomy placement 11/28: Ventric out 12/07: Downsized DELI MANAGER to #6 12/08: Decannulated self Consults: CCM. Neurosurgery. Pad care. Speech therapy. Rehabilitation medicine. Ashley. Marcell nurse liaison. Case management. Diet: Regular diet. Tolerating po diet. Encourage good po intake with each meal. Megace. Pulmonary: Encourage good pulmonary toileting. IS at bedside and pt encouraged to use. Rationale for use explained to patient, and verbalized understanding. Duo nebs. PAIN Management: Fentanyl patch 50 mcg. Roxicodone 5 mg q 6h. Behavior: Trazadone 50 HS. Valproic 250 TID Activity: OOB. PT x 7 DAYS and OT ordered. (cranial helmet) GI prophylaxis: Pepcid. Bowel regimen: Senna. MOM. Bisacodyl [place] PRN. LBM: 12/10 DVT prophylaxis: Mechanical VTE with SCDs. Chemical management with Lovenox 30 BID SQ. DC Planning: Case management consulted for assistance with final discharge disposition. Patient does not have insurance, therefore placement has been difficult. However, patient has been progressing very well. He is now tolerating a po diet and has been ambulating. PT has been intensified to 7 days a week to promote progress to discharge home. Awaiting a decision about transferring pt to [facility] per family's request, along with accepting physician and facility. Emotional support provided to patient and family at bedside and plan of care discussed. Discussed with RN at bedside. Patient is hemodynamically stable and being managed on the med/surg floor. The trauma team will round each day, and evaluate plan of care on a daily basis. Skull fx SDH, LEFT cerebral contusions RIGHT temporal contusion LEFT parietal lobe contusion Neurosurgery consulted and assisting in management and care 11/13: Suboccipital craniectomy with ventric placement 11/28: Ventriculostomy removed Trazodone 50 HS Valproic 250 TID for agitation/restlessness ST cognitive and swallow eval Toterating po Lovenox BID OOB QD- PT ordered x 7 days/ week Respiratory failure Supportive care 11/24: DELI MANAGER placement 11/25: Open jejunostomy placement 12/07: Downsized DELI MANAGER to #6 12/08: Self removed trach Oral care BID Suction PRN HTN Lopressor 25mg BID Hydralazine 25mg q8 Lasix 20mg QD KCl 20meq QD BP improved The exam, history, and the medical decision-making described in the above note were completed with the assistance of the mid-level provider. I reviewed and agree with the findings presented. I attest that I had a [id number] encounter with the patient on the same day, and personally performed and documented my assessment and findings in the medical record. Problem Qualifiers (1) Traumatic brain injury: (2) Brain contusion: Qualified Codes: S06.2X9A - Diffuse traumatic brain injury with loss of consciousness of unspecified duration, initial encounter (3) Skull fractures: Rose Marie Brennan Dec 11, 2016 10:16 Donavon Alfaro MD Dec 16, 2016 12:56
--- NOTE | 2016-12-11 10:16 | HHI.PR ---
Subjective Subjective Notes PTD: 29 Patient OOB and sitting in a chair. No distress noted. Says, "Hello. I'm fine." Will shake my hand when I extend my hand to him. Objective Vitals/I&O Vital Signs Date Time Temp Pulse Resp B/P (MAP) Pulse Ox O2 Delivery O2 Flow Rate FiO2 12/11/16 08:00 96.5 70 17 130/70 (90) 97 12/09/16 17:56 21 12/08/16 09:08 Trach Collar 5.00 Labs Date/Time Source Procedure Growth Status 11/24/16 06:00 Blood Peripheral Aerobic Blood Culture - Final NO GROWTH IN 5 DAYS Complete 11/24/16 06:00 Blood Peripheral Anaerobic Blood Culture - Final NO GROWTH IN 5 DAYS Complete 11/13/16 14:31 Cerebral Spinal Fluid Shunt Fluid Fungal Smear - Final NO FUNGAL ELEMENTS SEEN. Resulted 11/13/16 14:31 Cerebral Spinal Fluid Shunt Fluid Fungal Culture - Preliminary NO GROWTH IN 3 WEEKS Resulted 11/23/16 18:00 Sputum Endotracheal Gram Stain - Final Complete 11/23/16 18:00 Sputum Culture - Final Escherichia Coli Complete 11/23/16 18:00 Urine Catheterized Urine Urine Culture - Final NO GROWTH IN 48 HOURS. Complete Narrative Exam GENERAL: This is a 61-year-old male OOB in chair. Wearing cranial helmet. No distress noted. SKIN: Warm and dry. HEAD: Atraumatic. Normocephalic. EYES: PERRLA ENT: No nasal bleeding or discharge. Mucous membranes pink and moist. NECK: Trachea midline. No JVD. CARDIOVASCULAR: Regular rate and rhythm. RESPIRATORY: No accessory muscle use. Lungs are clear to auscultation. Breath sounds equal bilaterally. No distress or dyspnea. GASTROINTESTINAL: BS + x 4 quads. Abdomen soft, non-tender, nondistended. MUSCULOSKELETAL: Extremities without cyanosis, or edema. + peripheral pulses x 4 extremities. Warm with good capillary refill and sensation. MAEW. NEUROLOGICAL: Awake and alert. Answers questions with one-two word answers. 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 disturbance ICD Codes: S06.9X9S - Unspecified intracranial injury with loss of consciousness of unspecified duration, sequela; F02.80 - Dementia in other diseases classified elsewhere without behavioral disturbance Status: Acute (4) Dyspnea and respiratory abnormalities ICD Codes: R06.00 - Dyspnea, unspecified; R06.89 - Other abnormalities of breathing Status: Resolved (5) Pain, generalized ICD Codes: R52 - Pain, unspecified Status: Acute (6) Subdural hemorrhage ICD Codes: I62.00 - Nontraumatic subdural hemorrhage, unspecified Status: Acute (7) Brain contusion ICD Codes: S06.2X9A - Diffuse traumatic brain injury with loss of consciousness of unspecified duration, initial encounter Status: Acute (8) Skull fractures ICD Codes: S02.91XA - Unspecified fracture of skull, initial encounter for closed fracture Status: Acute (9) Status post craniectomy ICD Codes: Z98.890 - Other specified postprocedural states Status: Acute Assessment and Plan [place]: This is a 61-year-old male who was found down at home with an obvious scalp lac and raccoon eyes. GCS 5-6. Obtunded. He was intubated in the ED. + Cannabis. INJURIES: Skull fx SDH (temporal and parietal) LEFT cerebral contusions (w /compression of 4th ventricle) RIGHT temporal contusion LEFT parietal lobe contusion Procedures: 11/13: Intubated in the ED 11/13: Suboccipital craniectomy 11/24: BEDSIDE TRACH 11/25: Open jejunostomy placement 11/28: Ventric out 12/07: Downsized IS ANALYST to #6 12/08: Decannulated self Consults: CCM. Neurosurgery. Pad care. Speech therapy. Rehabilitation medicine. Ashley. Marcell nurse liaison. Case management. Diet: Regular diet. Tolerating po diet. Encourage good po intake with each meal. Megace. Pulmonary: Encourage good pulmonary toileting. IS at bedside and pt encouraged to use. Rationale for use explained to patient, and verbalized understanding. Duo nebs. PAIN Management: Fentanyl patch 50 mcg. Roxicodone 5 mg q 6h. Behavior: Trazadone 50 HS. Valproic 250 TID Activity: OOB. PT x 7 DAYS and OT ordered. (cranial helmet) GI prophylaxis: Pepcid. Bowel regimen: Senna. MOM. Bisacodyl [place] PRN. LBM: 12/10 DVT prophylaxis: Mechanical VTE with SCDs. Chemical management with Lovenox 30 BID SQ. DC Planning: Case management consulted for assistance with final discharge disposition. Patient does not have insurance, therefore placement has been difficult. However, patient has been progressing very well. He is now tolerating a po diet and has been ambulating. PT has been intensified to 7 days a week to promote progress to discharge home. Awaiting a decision about transferring pt to [facility] per family's request, along with accepting physician and facility. Emotional support provided to patient and family at bedside and plan of care discussed. Discussed with RN at bedside. Patient is hemodynamically stable and being managed on the med/surg floor. The trauma team will round each day, and evaluate plan of care on a daily basis. Skull fx SDH, LEFT cerebral contusions RIGHT temporal contusion LEFT parietal lobe contusion Neurosurgery consulted and assisting in management and care 11/13: Suboccipital craniectomy with ventric placement 11/28: Ventriculostomy removed Trazodone 50 HS Valproic 250 TID for agitation/restlessness ST cognitive and swallow eval Toterating po Lovenox BID OOB QD- PT ordered x 7 days/ week Respiratory failure Supportive care 11/24: IS ANALYST placement 11/25: Open jejunostomy placement 12/07: Downsized IS ANALYST to #6 12/08: Self removed trach Oral care BID Suction PRN HTN Lopressor 25mg BID Hydralazine 25mg q8 Lasix 20mg QD KCl 20meq QD BP improved The exam, history, and the medical decision-making described in the above note were completed with the assistance of the mid-level provider. I reviewed and agree with the findings presented. I attest that I had a [id number] encounter with the patient on the same day, and personally performed and documented my assessment and findings in the medical record. Problem Qualifiers (1) Traumatic brain injury: (2) Brain contusion: Qualified Codes: S06.2X9A - Diffuse traumatic brain injury with loss of consciousness of unspecified duration, initial encounter (3) Skull fractures: Rose Marie Brennan Dec 11, 2016 10:16 Donavon Alfaro MD Dec 16, 2016 12:56
--- NOTE | 2016-12-11 10:16 | HHI.PR ---
Subjective Subjective Notes PTD: 29 Patient OOB and sitting in a chair. No distress noted. Says, "Hello. I'm fine." Will shake my hand when I extend my hand to him. Objective Vitals/I&O Vital Signs Date Time Temp Pulse Resp B/P (MAP) Pulse Ox O2 Delivery O2 Flow Rate FiO2 12/11/16 08:00 96.5 70 17 130/70 (90) 97 12/09/16 17:56 21 12/08/16 09:08 Trach Collar 5.00 Labs Date/Time Source Procedure Growth Status 11/24/16 06:00 Blood Peripheral Aerobic Blood Culture - Final NO GROWTH IN 5 DAYS Complete 11/24/16 06:00 Blood Peripheral Anaerobic Blood Culture - Final NO GROWTH IN 5 DAYS Complete 11/13/16 14:31 Cerebral Spinal Fluid Shunt Fluid Fungal Smear - Final NO FUNGAL ELEMENTS SEEN. Resulted 11/13/16 14:31 Cerebral Spinal Fluid Shunt Fluid Fungal Culture - Preliminary NO GROWTH IN 3 WEEKS Resulted 11/23/16 18:00 Sputum Endotracheal Gram Stain - Final Complete 11/23/16 18:00 Sputum Culture - Final Escherichia Coli Complete 11/23/16 18:00 Urine Catheterized Urine Urine Culture - Final NO GROWTH IN 48 HOURS. Complete Narrative Exam GENERAL: This is a 61-year-old male OOB in chair. Wearing cranial helmet. No distress noted. SKIN: Warm and dry. HEAD: Atraumatic. Normocephalic. EYES: PERRLA ENT: No nasal bleeding or discharge. Mucous membranes pink and moist. NECK: Trachea midline. No JVD. CARDIOVASCULAR: Regular rate and rhythm. RESPIRATORY: No accessory muscle use. Lungs are clear to auscultation. Breath sounds equal bilaterally. No distress or dyspnea. GASTROINTESTINAL: BS + x 4 quads. Abdomen soft, non-tender, nondistended. MUSCULOSKELETAL: Extremities without cyanosis, or edema. + peripheral pulses x 4 extremities. Warm with good capillary refill and sensation. MAEW. NEUROLOGICAL: Awake and alert. Answers questions with one-two word answers. 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 disturbance ICD Codes: S06.9X9S - Unspecified intracranial injury with loss of consciousness of unspecified duration, sequela; F02.80 - Dementia in other diseases classified elsewhere without behavioral disturbance Status: Acute (4) Dyspnea and respiratory abnormalities ICD Codes: R06.00 - Dyspnea, unspecified; R06.89 - Other abnormalities of breathing Status: Resolved (5) Pain, generalized ICD Codes: R52 - Pain, unspecified Status: Acute (6) Subdural hemorrhage ICD Codes: I62.00 - Nontraumatic subdural hemorrhage, unspecified Status: Acute (7) Brain contusion ICD Codes: S06.2X9A - Diffuse traumatic brain injury with loss of consciousness of unspecified duration, initial encounter Status: Acute (8) Skull fractures ICD Codes: S02.91XA - Unspecified fracture of skull, initial encounter for closed fracture Status: Acute (9) Status post craniectomy ICD Codes: Z98.890 - Other specified postprocedural states Status: Acute Assessment and Plan [place]: This is a 61-year-old male who was found down at home with an obvious scalp lac and raccoon eyes. GCS 5-6. Obtunded. He was intubated in the ED. + Cannabis. INJURIES: Skull fx SDH (temporal and parietal) LEFT cerebral contusions (w /compression of 4th ventricle) RIGHT temporal contusion LEFT parietal lobe contusion Procedures: 11/13: Intubated in the ED 11/13: Suboccipital craniectomy 11/24: BEDSIDE TRACH 11/25: Open jejunostomy placement 11/28: Ventric out 12/07: Downsized SKY DIVER to #6 12/08: Decannulated self Consults: CCM. Neurosurgery. Pad care. Speech therapy. Rehabilitation medicine. Ashley. Marcell nurse liaison. Case management. Diet: Regular diet. Tolerating po diet. Encourage good po intake with each meal. Megace. Pulmonary: Encourage good pulmonary toileting. IS at bedside and pt encouraged to use. Rationale for use explained to patient, and verbalized understanding. Duo nebs. PAIN Management: Fentanyl patch 50 mcg. Roxicodone 5 mg q 6h. Behavior: Trazadone 50 HS. Valproic 250 TID Activity: OOB. PT x 7 DAYS and OT ordered. (cranial helmet) GI prophylaxis: Pepcid. Bowel regimen: Senna. MOM. Bisacodyl [place] PRN. LBM: 12/10 DVT prophylaxis: Mechanical VTE with SCDs. Chemical management with Lovenox 30 BID SQ. DC Planning: Case management consulted for assistance with final discharge disposition. Patient does not have insurance, therefore placement has been difficult. However, patient has been progressing very well. He is now tolerating a po diet and has been ambulating. PT has been intensified to 7 days a week to promote progress to discharge home. Awaiting a decision about transferring pt to [facility] per family's request, along with accepting physician and facility. Emotional support provided to patient and family at bedside and plan of care discussed. Discussed with RN at bedside. Patient is hemodynamically stable and being managed on the med/surg floor. The trauma team will round each day, and evaluate plan of care on a daily basis. Skull fx SDH, LEFT cerebral contusions RIGHT temporal contusion LEFT parietal lobe contusion Neurosurgery consulted and assisting in management and care 11/13: Suboccipital craniectomy with ventric placement 11/28: Ventriculostomy removed Trazodone 50 HS Valproic 250 TID for agitation/restlessness ST cognitive and swallow eval Toterating po Lovenox BID OOB QD- PT ordered x 7 days/ week Respiratory failure Supportive care 11/24: SKY DIVER placement 11/25: Open jejunostomy placement 12/07: Downsized SKY DIVER to #6 12/08: Self removed trach Oral care BID Suction PRN HTN Lopressor 25mg BID Hydralazine 25mg q8 Lasix 20mg QD KCl 20meq QD BP improved The exam, history, and the medical decision-making described in the above note were completed with the assistance of the mid-level provider. I reviewed and agree with the findings presented. I attest that I had a [id number] encounter with the patient on the same day, and personally performed and documented my assessment and findings in the medical record. Problem Qualifiers (1) Traumatic brain injury: (2) Brain contusion: Qualified Codes: S06.2X9A - Diffuse traumatic brain injury with loss of consciousness of unspecified duration, initial encounter (3) Skull fractures: Rose Marie Brennan Dec 11, 2016 10:16 Donavon Alfaro MD Dec 16, 2016 12:56
[2016-12-11] MEDS ORDERED: PETROLEUM/SHARK LIVER OIL/PHENYLEPHRINE 60 GM TUBE TOPICAL PRN (13:15)
--- NOTE | 2016-12-11 14:54 | HHI.PR ---
Subjective Subjective Comments Patient up in bedside chair. Helmet in place. Denies any pain. No shortness of breath noted. Allergies: Coded Allergies: No Known Allergies (Unverified , 01/29/16) Review of Systems All other ROS: ROS reviewed as documented in chart Exam I&O / VS Vital Signs Date Time Temp Pulse Resp B/P (MAP) Pulse Ox O2 Delivery O2 Flow Rate FiO2 12/11/16 11:23 95.9 61 16 104/64 (77) 99 12/11/16 08:00 96.5 70 17 130/70 (90) 97 12/11/16 07:00 96.5 70 17 130/70 (90) 97 12/11/16 04:10 98.1 73 20 137/78 (97) 96 12/11/16 00:25 97.2 68 20 109/56 (73) 98 12/10/16 21:12 97.6 76 20 124/77 (93) 98 12/10/16 16:00 96.0 81 17 109/70 (83) 98 General: No acute distress, Other (Trach with T-piece) Cardiovascular: Normal rate Skin: Other (SCDs in place) Musculoskeletal: ROM (within functional limits), Other (SCDs in place) Psychiatric: Cooperative Orientation: oriented to Self, disoriented to Place, disoriented to Time, disoriented to Situation Neurologic: Pupils (PERRLA), EOM (Tracks), Speech (Attempting to vebalize but unintelligible), Other (Follows commands to move both UE and LE) Objective Micro and Labs Date/Time Source Procedure Growth Status 11/24/16 06:00 Blood Peripheral Aerobic Blood Culture - Final NO GROWTH IN 5 DAYS Complete 11/24/16 06:00 Blood Peripheral Anaerobic Blood Culture - Final NO GROWTH IN 5 DAYS Complete 11/13/16 14:31 Cerebral Spinal Fluid Shunt Fluid Fungal Smear - Final NO FUNGAL ELEMENTS SEEN. Complete 11/13/16 14:31 Cerebral Spinal Fluid Shunt Fluid Fungal Culture - Final NO GROWTH IN 4 WEEKS Complete 11/23/16 18:00 Sputum Endotracheal Gram Stain - Final Complete 11/23/16 18:00 Sputum Culture - Final Escherichia Coli Complete 11/23/16 18:00 Urine Catheterized Urine Urine Culture - Final NO GROWTH IN 48 HOURS. Complete Assessment and Plan Diagnosis: (1) Traumatic brain injury ICD Codes: S06.9X9A - Unspecified intracranial injury with loss of consciousness of unspecified duration, initial encounter Status: Acute Qualifiers: Encounter type: subsequent encounter Loss of consciousness presence/ duration: with LOC of unspecified duration Assessment 1. Traumatic brain injury status post left suboccipital craniotomy for evacuation of cerebellar hemorrhage with ventriculostomy placement. [place] level 4 2. Aspiration pneumonitis 3. Trach currently on T-piece 4. J-tube Plan 1. PT is mobilizing and now min assist for transfer and gait 30 feet. Continue to mobilize 2. OT following and mod assist for grooming and max assist for dressing 3. Appreciate neuropsychology evaluation and follow-up 4. SCDs in place for DVT prophylaxis 5. Will follow in conjunction with case management regarding rehabilitation needs at discharge. Case management working with family for payor source. 6. Will continue to follow hospitalized and is appropriate at discharge Sandhya Martínez MD Dec 11, 2016 14:54
[2016-12-11] MEDS: traZODone HCL 50 MG TAB PO SCH (20:39)
[2016-12-11] MEDS: MAGNESIUM HYDROXIDE SUSP 30 ML CUP PO SCH (20:40)
[2016-12-12] VITALS: BP 112/76; PULSE 76; RESP 18; TEMP 98.2; O2SAT 94
[2016-12-12] MEDS: SODIUM CHLORIDE 1 GRAM TAB PO SCH ×4 (03:19→20:32)
[2016-12-12 04:00] VITALS: BP 119/64; PULSE 65; RESP 18; TEMP 97.8; O2SAT 95
[2016-12-12] MEDS: ARTIFICIAL TEARS OPTH SOLN 15 ML BTL EACH EYE SCH (05:42)
[2016-12-12] MEDS ORDERED: ARTIFICIAL TEARS OPTH SOLN 15 ML BTL EACH EYE PRN (06:15)
[2016-12-12 08:00] VITALS: BP 138/84; PULSE 79; RESP 18; TEMP 95.5; O2SAT 94
[2016-12-12] MEDS: MEGESTROL ACETATE SUSP 400 MG/10 ML CUP PO SCH ×4 (10:03→20:32)
[2016-12-12] MEDS: FUROSEMIDE 40 MG/5 ML UNIT DOSE CUP NG SCH (10:04)
[2016-12-12] MEDS: SENNOSIDES SYRUP 8.8 MG/5 ML CUP PO SCH (10:04)
[2016-12-12] MEDS: hydrALAZINE HCL 25 MG TAB PO SCH ×2 (10:06→20:32)
[2016-12-12] MEDS: VALPROIC ACID SYRUP 250 MG/5 ML UDC PO SCH ×3 (10:06→17:51)
[2016-12-12] MEDS: METOPROLOL TARTRATE 25 MG TAB PO SCH ×2 (10:07→20:32)
[2016-12-12] MEDS: ENOXAPARIN SODIUM 30 MG/0.3 ML SYRINGE SQ SCH ×2 (10:07→20:32)
[2016-12-12] MEDS: POTASSIUM CHLORIDE 25 MEQ EFFERVESCENT TAB NG SCH (10:11)
[2016-12-12] MEDS: FAMOTIDINE 20 MG TAB NG SCH (11:01)
[2016-12-12 12:00] VITALS: BP 122/72; PULSE 73; RESP 17; TEMP 96.4; O2SAT 100
--- NOTE | 2016-12-12 12:15 | HHI.PR ---
Subjective Subjective Notes PTD: 29 Patient currently in restroom. * RN discusses that pt has been extremely impulsive. Patient has pulled out J-tube overnight. It appears to have been cut, as the bumper remains in place with sutures. Objective Vitals/I&O Vital Signs Date Time Temp Pulse Resp B/P (MAP) Pulse Ox O2 Delivery O2 Flow Rate FiO2 12/12/16 08:00 95.5 79 18 138/84 (102) 94 12/09/16 17:56 21 12/08/16 09:08 Trach Collar 5.00 Labs Date/Time Source Procedure Growth Status 11/24/16 06:00 Blood Peripheral Aerobic Blood Culture - Final NO GROWTH IN 5 DAYS Complete 11/24/16 06:00 Blood Peripheral Anaerobic Blood Culture - Final NO GROWTH IN 5 DAYS Complete 11/13/16 14:31 Cerebral Spinal Fluid Shunt Fluid Fungal Smear - Final NO FUNGAL ELEMENTS SEEN. Complete 11/13/16 14:31 Cerebral Spinal Fluid Shunt Fluid Fungal Culture - Final NO GROWTH IN 4 WEEKS Complete 11/23/16 18:00 Sputum Endotracheal Gram Stain - Final Complete 11/23/16 18:00 Sputum Culture - Final Escherichia Coli Complete 11/23/16 18:00 Urine Catheterized Urine Urine Culture - Final NO GROWTH IN 48 HOURS. Complete Narrative Exam GENERAL: This is a 61-year-old male OOB in restroom. Wearing cranial helmet. No distress noted. SKIN: Warm and dry. HEAD: Atraumatic. Normocephalic. EYES: PERRLA ENT: No nasal bleeding or discharge. Mucous membranes pink and moist. NECK: Trachea midline. No JVD. CARDIOVASCULAR: Regular rate and rhythm. RESPIRATORY: No accessory muscle use. Lungs are clear to auscultation. Breath sounds equal bilaterally. No distress or dyspnea. GASTROINTESTINAL: BS + x 4 quads. Abdomen soft, non-tender, nondistended. MUSCULOSKELETAL: Extremities without cyanosis, or edema. + peripheral pulses x 4 extremities. Warm with good capillary refill and sensation. MAEW. NEUROLOGICAL: Awake and alert. Answers questions with one-two word answers. 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 disturbance ICD Codes: S06.9X9S - Unspecified intracranial injury with loss of consciousness of unspecified duration, sequela; F02.80 - Dementia in other diseases classified elsewhere without behavioral disturbance Status: Acute (4) Dyspnea and respiratory abnormalities ICD Codes: R06.00 - Dyspnea, unspecified; R06.89 - Other abnormalities of breathing Status: Resolved (5) Pain, generalized ICD Codes: R52 - Pain, unspecified Status: Acute (6) Subdural hemorrhage ICD Codes: I62.00 - Nontraumatic subdural hemorrhage, unspecified Status: Acute (7) Brain contusion ICD Codes: S06.2X9A - Diffuse traumatic brain injury with loss of consciousness of unspecified duration, initial encounter Status: Acute (8) Skull fractures ICD Codes: S02.91XA - Unspecified fracture of skull, initial encounter for closed fracture Status: Acute (9) Status post craniectomy ICD Codes: Z98.890 - Other specified postprocedural states Status: Acute Assessment and Plan [place]: This is a 61-year-old male who was found down at home with an obvious scalp lac and raccoon eyes. GCS 5-6. Obtunded. He was intubated in the ED. + Cannabis. INJURIES: Skull fx SDH (temporal and parietal) LEFT cerebral contusions (w /compression of 4th ventricle) RIGHT temporal contusion LEFT parietal lobe contusion Procedures: 11/13: Intubated in the ED 11/13: Suboccipital craniectomy 11/24: BEDSIDE TRACH 11/25: Open jejunostomy placement 11/28: Ventric out 12/07: Downsized PORCELAIN ENAMEL REPAIRER to #6 12/08: Decannulated self Consults: [facility]. Neurosurgery. Palliative care. Speech therapy. Rehabilitation medicine. Ashley. Marcell nurse liaison. Case management. Diet: Regular soft diet. Tolerating po diet. Encourage good po intake with each meal. Megace. Pulmonary: Encourage good pulmonary toileting. IS at bedside and pt encouraged to use. Rationale for use explained to patient, and verbalized understanding. Duo nebs. PAIN Management: Fentanyl patch 25 mcg. change to Percocet 5 mg q6h. Behavior: Trazadone 50 HS. Valproic 250 TID Activity: OOB. PT x 7 DAYS and OT ordered. (cranial helmet) GI prophylaxis: Pepcid. Bowel regimen: Senna. MOM. Bisacodyl [place] PRN. LBM: 12/12 DVT prophylaxis: Mechanical VTE with SCDs. Chemical management with Lovenox 30 BID SQ. Patient pulled out his J-tube last night. The bumper remains in place with sutures. Examination of the tube and it appears to have been broke/cut and the portion with the balloon is missing. It is possible it is retained internally. Collaborated with GRACE Abernathy for GI, and formulated a plan for examining each stool for expulsion of retained portion of J-tube. Monitor patient closely for signs and symptoms of obstruction including distended abdomen. If this occurs, obtain stat KUB x-ray and notify physician. DC Planning: Case management consulted for assistance with final discharge disposition. Patient does not have insurance, therefore placement has been difficult. However, patient has been progressing very well. He is now tolerating a po diet and has been ambulating. PT has been intensified to 7 days a week to promote progress to discharge home. Awaiting a decision about transferring pt to [facility] per family's request, along with accepting physician and facility. Emotional support provided to patient and family at bedside and plan of care discussed. Discussed with RN at bedside. Patient is hemodynamically stable and being managed on the med/surg floor. The trauma team will round each day, and evaluate plan of care on a daily basis. Skull fx SDH, LEFT cerebral contusions RIGHT temporal contusion LEFT parietal lobe contusion Neurosurgery consulted and assisting in management and care 11/13: Suboccipital craniectomy with ventric placement 11/28: Ventriculostomy removed Trazodone 50 HS Valproic 250 TID for agitation/restlessness ST cognitive and swallow eval Toterating po Lovenox BID OOB QD- PT ordered x 7 days/ week Respiratory failure Supportive care 11/24: PORCELAIN ENAMEL REPAIRER placement 11/25: Open jejunostomy placement 12/07: Downsized PORCELAIN ENAMEL REPAIRER to #6 12/08: Self removed trach Oral care BID Suction PRN HTN Lopressor 25mg BID Hydralazine 25mg q8 Lasix 20mg QD KCl 20meq QD BP improved Self removed J-tube. Patient self removed his J-tube on payroll director. Pumper remains in place with sutures Examined J-tube, and it appears to have been broken/cut as the balloon portion is missing He may have a retained portion of the J-tube internally. Discussed with RN to examine each of patient's stools for possible retained J- tube Monitor patient closely for obstruction If patient becomes distended - obtain stat KUB x-ray Notify Physician Problem Qualifiers (1) Traumatic brain injury: (2) Brain contusion: Qualified Codes: S06.2X9A - Diffuse traumatic brain injury with loss of consciousness of unspecified duration, initial encounter (3) Skull fractures: Rose Marie Brennan Dec 12, 2016 12:15
--- NOTE | 2016-12-12 12:15 | HHI.PR ---
Subjective Subjective Notes PTD: 29 Patient currently in restroom. * RN discusses that pt has been extremely impulsive. Patient has pulled out J-tube overnight. It appears to have been cut, as the bumper remains in place with sutures. Objective Vitals/I&O Vital Signs Date Time Temp Pulse Resp B/P (MAP) Pulse Ox O2 Delivery O2 Flow Rate FiO2 12/12/16 08:00 95.5 79 18 138/84 (102) 94 12/09/16 17:56 21 12/08/16 09:08 Trach Collar 5.00 Labs Date/Time Source Procedure Growth Status 11/24/16 06:00 Blood Peripheral Aerobic Blood Culture - Final NO GROWTH IN 5 DAYS Complete 11/24/16 06:00 Blood Peripheral Anaerobic Blood Culture - Final NO GROWTH IN 5 DAYS Complete 11/13/16 14:31 Cerebral Spinal Fluid Shunt Fluid Fungal Smear - Final NO FUNGAL ELEMENTS SEEN. Complete 11/13/16 14:31 Cerebral Spinal Fluid Shunt Fluid Fungal Culture - Final NO GROWTH IN 4 WEEKS Complete 11/23/16 18:00 Sputum Endotracheal Gram Stain - Final Complete 11/23/16 18:00 Sputum Culture - Final Escherichia Coli Complete 11/23/16 18:00 Urine Catheterized Urine Urine Culture - Final NO GROWTH IN 48 HOURS. Complete Narrative Exam GENERAL: This is a 61-year-old male OOB in restroom. Wearing cranial helmet. No distress noted. SKIN: Warm and dry. HEAD: Atraumatic. Normocephalic. EYES: PERRLA ENT: No nasal bleeding or discharge. Mucous membranes pink and moist. NECK: Trachea midline. No JVD. CARDIOVASCULAR: Regular rate and rhythm. RESPIRATORY: No accessory muscle use. Lungs are clear to auscultation. Breath sounds equal bilaterally. No distress or dyspnea. GASTROINTESTINAL: BS + x 4 quads. Abdomen soft, non-tender, nondistended. MUSCULOSKELETAL: Extremities without cyanosis, or edema. + peripheral pulses x 4 extremities. Warm with good capillary refill and sensation. MAEW. NEUROLOGICAL: Awake and alert. Answers questions with one-two word answers. 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 disturbance ICD Codes: S06.9X9S - Unspecified intracranial injury with loss of consciousness of unspecified duration, sequela; F02.80 - Dementia in other diseases classified elsewhere without behavioral disturbance Status: Acute (4) Dyspnea and respiratory abnormalities ICD Codes: R06.00 - Dyspnea, unspecified; R06.89 - Other abnormalities of breathing Status: Resolved (5) Pain, generalized ICD Codes: R52 - Pain, unspecified Status: Acute (6) Subdural hemorrhage ICD Codes: I62.00 - Nontraumatic subdural hemorrhage, unspecified Status: Acute (7) Brain contusion ICD Codes: S06.2X9A - Diffuse traumatic brain injury with loss of consciousness of unspecified duration, initial encounter Status: Acute (8) Skull fractures ICD Codes: S02.91XA - Unspecified fracture of skull, initial encounter for closed fracture Status: Acute (9) Status post craniectomy ICD Codes: Z98.890 - Other specified postprocedural states Status: Acute Assessment and Plan [place]: This is a 61-year-old male who was found down at home with an obvious scalp lac and raccoon eyes. GCS 5-6. Obtunded. He was intubated in the ED. + Cannabis. INJURIES: Skull fx SDH (temporal and parietal) LEFT cerebral contusions (w /compression of 4th ventricle) RIGHT temporal contusion LEFT parietal lobe contusion Procedures: 11/13: Intubated in the ED 11/13: Suboccipital craniectomy 11/24: BEDSIDE TRACH 11/25: Open jejunostomy placement 11/28: Ventric out 12/07: Downsized DATA SCIENCE AND IOT MANAGER to #6 12/08: Decannulated self Consults: [facility]. Neurosurgery. Palliative care. Speech therapy. Rehabilitation medicine. Ashley. Marcell nurse liaison. Case management. Diet: Regular soft diet. Tolerating po diet. Encourage good po intake with each meal. Megace. Pulmonary: Encourage good pulmonary toileting. IS at bedside and pt encouraged to use. Rationale for use explained to patient, and verbalized understanding. Duo nebs. PAIN Management: Fentanyl patch 25 mcg. change to Percocet 5 mg q6h. Behavior: Trazadone 50 HS. Valproic 250 TID Activity: OOB. PT x 7 DAYS and OT ordered. (cranial helmet) GI prophylaxis: Pepcid. Bowel regimen: Senna. MOM. Bisacodyl [place] PRN. LBM: 12/12 DVT prophylaxis: Mechanical VTE with SCDs. Chemical management with Lovenox 30 BID SQ. Patient pulled out his J-tube last night. The bumper remains in place with sutures. Examination of the tube and it appears to have been broke/cut and the portion with the balloon is missing. It is possible it is retained internally. Collaborated with GRACE Abernathy for GI, and formulated a plan for examining each stool for expulsion of retained portion of J-tube. Monitor patient closely for signs and symptoms of obstruction including distended abdomen. If this occurs, obtain stat KUB x-ray and notify physician. DC Planning: Case management consulted for assistance with final discharge disposition. Patient does not have insurance, therefore placement has been difficult. However, patient has been progressing very well. He is now tolerating a po diet and has been ambulating. PT has been intensified to 7 days a week to promote progress to discharge home. Awaiting a decision about transferring pt to [facility] per family's request, along with accepting physician and facility. Emotional support provided to patient and family at bedside and plan of care discussed. Discussed with RN at bedside. Patient is hemodynamically stable and being managed on the med/surg floor. The trauma team will round each day, and evaluate plan of care on a daily basis. Skull fx SDH, LEFT cerebral contusions RIGHT temporal contusion LEFT parietal lobe contusion Neurosurgery consulted and assisting in management and care 11/13: Suboccipital craniectomy with ventric placement 11/28: Ventriculostomy removed Trazodone 50 HS Valproic 250 TID for agitation/restlessness ST cognitive and swallow eval Toterating po Lovenox BID OOB QD- PT ordered x 7 days/ week Respiratory failure Supportive care 11/24: DATA SCIENCE AND IOT MANAGER placement 11/25: Open jejunostomy placement 12/07: Downsized DATA SCIENCE AND IOT MANAGER to #6 12/08: Self removed trach Oral care BID Suction PRN HTN Lopressor 25mg BID Hydralazine 25mg q8 Lasix 20mg QD KCl 20meq QD BP improved Self removed J-tube. Patient self removed his J-tube on meter supervisor. Pumper remains in place with sutures Examined J-tube, and it appears to have been broken/cut as the balloon portion is missing He may have a retained portion of the J-tube internally. Discussed with RN to examine each of patient's stools for possible retained J- tube Monitor patient closely for obstruction If patient becomes distended - obtain stat KUB x-ray Notify Physician Problem Qualifiers (1) Traumatic brain injury: (2) Brain contusion: Qualified Codes: S06.2X9A - Diffuse traumatic brain injury with loss of consciousness of unspecified duration, initial encounter (3) Skull fractures: Rose Marie Brennan Dec 12, 2016 12:15
--- NOTE | 2016-12-12 12:15 | HHI.PR ---
Subjective Subjective Notes PTD: 29 Patient currently in restroom. * RN discusses that pt has been extremely impulsive. Patient has pulled out J-tube overnight. It appears to have been cut, as the bumper remains in place with sutures. Objective Vitals/I&O Vital Signs Date Time Temp Pulse Resp B/P (MAP) Pulse Ox O2 Delivery O2 Flow Rate FiO2 12/12/16 08:00 95.5 79 18 138/84 (102) 94 12/09/16 17:56 21 12/08/16 09:08 Trach Collar 5.00 Labs Date/Time Source Procedure Growth Status 11/24/16 06:00 Blood Peripheral Aerobic Blood Culture - Final NO GROWTH IN 5 DAYS Complete 11/24/16 06:00 Blood Peripheral Anaerobic Blood Culture - Final NO GROWTH IN 5 DAYS Complete 11/13/16 14:31 Cerebral Spinal Fluid Shunt Fluid Fungal Smear - Final NO FUNGAL ELEMENTS SEEN. Complete 11/13/16 14:31 Cerebral Spinal Fluid Shunt Fluid Fungal Culture - Final NO GROWTH IN 4 WEEKS Complete 11/23/16 18:00 Sputum Endotracheal Gram Stain - Final Complete 11/23/16 18:00 Sputum Culture - Final Escherichia Coli Complete 11/23/16 18:00 Urine Catheterized Urine Urine Culture - Final NO GROWTH IN 48 HOURS. Complete Narrative Exam GENERAL: This is a 61-year-old male OOB in restroom. Wearing cranial helmet. No distress noted. SKIN: Warm and dry. HEAD: Atraumatic. Normocephalic. EYES: PERRLA ENT: No nasal bleeding or discharge. Mucous membranes pink and moist. NECK: Trachea midline. No JVD. CARDIOVASCULAR: Regular rate and rhythm. RESPIRATORY: No accessory muscle use. Lungs are clear to auscultation. Breath sounds equal bilaterally. No distress or dyspnea. GASTROINTESTINAL: BS + x 4 quads. Abdomen soft, non-tender, nondistended. MUSCULOSKELETAL: Extremities without cyanosis, or edema. + peripheral pulses x 4 extremities. Warm with good capillary refill and sensation. MAEW. NEUROLOGICAL: Awake and alert. Answers questions with one-two word answers. 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 disturbance ICD Codes: S06.9X9S - Unspecified intracranial injury with loss of consciousness of unspecified duration, sequela; F02.80 - Dementia in other diseases classified elsewhere without behavioral disturbance Status: Acute (4) Dyspnea and respiratory abnormalities ICD Codes: R06.00 - Dyspnea, unspecified; R06.89 - Other abnormalities of breathing Status: Resolved (5) Pain, generalized ICD Codes: R52 - Pain, unspecified Status: Acute (6) Subdural hemorrhage ICD Codes: I62.00 - Nontraumatic subdural hemorrhage, unspecified Status: Acute (7) Brain contusion ICD Codes: S06.2X9A - Diffuse traumatic brain injury with loss of consciousness of unspecified duration, initial encounter Status: Acute (8) Skull fractures ICD Codes: S02.91XA - Unspecified fracture of skull, initial encounter for closed fracture Status: Acute (9) Status post craniectomy ICD Codes: Z98.890 - Other specified postprocedural states Status: Acute Assessment and Plan [place]: This is a 61-year-old male who was found down at home with an obvious scalp lac and raccoon eyes. GCS 5-6. Obtunded. He was intubated in the ED. + Cannabis. INJURIES: Skull fx SDH (temporal and parietal) LEFT cerebral contusions (w /compression of 4th ventricle) RIGHT temporal contusion LEFT parietal lobe contusion Procedures: 11/13: Intubated in the ED 11/13: Suboccipital craniectomy 11/24: BEDSIDE TRACH 11/25: Open jejunostomy placement 11/28: Ventric out 12/07: Downsized WOOL BUYER to #6 12/08: Decannulated self Consults: [facility]. Neurosurgery. Palliative care. Speech therapy. Rehabilitation medicine. Ashley. Marcell nurse liaison. Case management. Diet: Regular soft diet. Tolerating po diet. Encourage good po intake with each meal. Megace. Pulmonary: Encourage good pulmonary toileting. IS at bedside and pt encouraged to use. Rationale for use explained to patient, and verbalized understanding. Duo nebs. PAIN Management: Fentanyl patch 25 mcg. change to Percocet 5 mg q6h. Behavior: Trazadone 50 HS. Valproic 250 TID Activity: OOB. PT x 7 DAYS and OT ordered. (cranial helmet) GI prophylaxis: Pepcid. Bowel regimen: Senna. MOM. Bisacodyl [place] PRN. LBM: 12/12 DVT prophylaxis: Mechanical VTE with SCDs. Chemical management with Lovenox 30 BID SQ. Patient pulled out his J-tube last night. The bumper remains in place with sutures. Examination of the tube and it appears to have been broke/cut and the portion with the balloon is missing. It is possible it is retained internally. Collaborated with GRACE Abernathy for GI, and formulated a plan for examining each stool for expulsion of retained portion of J-tube. Monitor patient closely for signs and symptoms of obstruction including distended abdomen. If this occurs, obtain stat KUB x-ray and notify physician. DC Planning: Case management consulted for assistance with final discharge disposition. Patient does not have insurance, therefore placement has been difficult. However, patient has been progressing very well. He is now tolerating a po diet and has been ambulating. PT has been intensified to 7 days a week to promote progress to discharge home. Awaiting a decision about transferring pt to [facility] per family's request, along with accepting physician and facility. Emotional support provided to patient and family at bedside and plan of care discussed. Discussed with RN at bedside. Patient is hemodynamically stable and being managed on the med/surg floor. The trauma team will round each day, and evaluate plan of care on a daily basis. Skull fx SDH, LEFT cerebral contusions RIGHT temporal contusion LEFT parietal lobe contusion Neurosurgery consulted and assisting in management and care 11/13: Suboccipital craniectomy with ventric placement 11/28: Ventriculostomy removed Trazodone 50 HS Valproic 250 TID for agitation/restlessness ST cognitive and swallow eval Toterating po Lovenox BID OOB QD- PT ordered x 7 days/ week Respiratory failure Supportive care 11/24: WOOL BUYER placement 11/25: Open jejunostomy placement 12/07: Downsized WOOL BUYER to #6 12/08: Self removed trach Oral care BID Suction PRN HTN Lopressor 25mg BID Hydralazine 25mg q8 Lasix 20mg QD KCl 20meq QD BP improved Self removed J-tube. Patient self removed his J-tube on label paster. Pumper remains in place with sutures Examined J-tube, and it appears to have been broken/cut as the balloon portion is missing He may have a retained portion of the J-tube internally. Discussed with RN to examine each of patient's stools for possible retained J- tube Monitor patient closely for obstruction If patient becomes distended - obtain stat KUB x-ray Notify Physician Problem Qualifiers (1) Traumatic brain injury: (2) Brain contusion: Qualified Codes: S06.2X9A - Diffuse traumatic brain injury with loss of consciousness of unspecified duration, initial encounter (3) Skull fractures: Rose Marie Brennan Dec 12, 2016 12:15
[2016-12-12] MEDS: fentaNYL 25 MCG/HR PATCH T-DERMAL SCH (12:42)
--- NOTE | 2016-12-12 13:18 | HHI.GIFU ---
Subjective Remarks Reconsulted for dislodged feeding tube. We had previously attempted PEG tube placement, but was not able to secondary to hx of partial gastrectomy. J tube was placed surgically by Dr. Hitchcock. Bumper is still sutured in place, but tube was pulled out by patient. D/W [place] with CVT. Pt is getting soft diet with TF at night. She would like to hold on J tube placement and get calorie count prior to having tube replaced. (Michela Schultz) Objective Vitals I&O Vital Signs Date Time Temp Pulse Resp B/P (MAP) Pulse Ox O2 Delivery O2 Flow Rate FiO2 12/12/16 12:00 96.4 73 17 122/72 (89) 100 12/12/16 08:00 95.5 79 18 138/84 (102) 94 12/12/16 04:00 97.8 65 18 119/64 (82) 95 12/12/16 00:00 98.2 76 18 112/76 (88) 94 12/11/16 20:00 97.2 81 18 113/70 (84) 100 12/11/16 16:00 96.1 71 17 100/59 (73) 97 I/O 12/11/16 12/11/16 12/11/16 12/12/16 12/12/16 12/12/16 07:00 15:00 23:00 07:00 15:00 23:00 Intake Total 230 ml 495 ml Balance 230 ml 495 ml Intake Oral 200 ml 495 ml Tube Irrigant 30 ml # Voids 2 4 3 # Bowel Movements 1 Laboratory Date/Time Source Procedure Growth Status 11/24/16 06:00 Blood Peripheral Aerobic Blood Culture - Final NO GROWTH IN 5 DAYS Complete 11/24/16 06:00 Blood Peripheral Anaerobic Blood Culture - Final NO GROWTH IN 5 DAYS Complete 11/13/16 14:31 Cerebral Spinal Fluid Shunt Fluid Fungal Smear - Final NO FUNGAL ELEMENTS SEEN. Complete 11/13/16 14:31 Cerebral Spinal Fluid Shunt Fluid Fungal Culture - Final NO GROWTH IN 4 WEEKS Complete 11/23/16 18:00 Sputum Endotracheal Gram Stain - Final Complete 11/23/16 18:00 Sputum Culture - Final Escherichia Coli Complete 11/23/16 18:00 Urine Catheterized Urine Urine Culture - Final NO GROWTH IN 48 HOURS. Complete Imaging Last Impressions Chest X-Ray 12/06/16 0600 Signed Impressions: Service Date/Time: Tuesday, December 06, 2016 05:23 - CONCLUSION: Left base consolidation or atelectasis. Fabien Menjivar MD Consultation 12/03/16 0000 Signed Impressions: Service Date/Time: November 00:00 - CONCLUSION: Insufficient ascitic volume for safe paracentesis. Andrea Glez Jr., MD Abdomen/Pelvis CT 12/02/16 0000 Signed Impressions: Service Date/Time: Friday, December 02, 2016 18:58 - CONCLUSION: 1. Status post placement of a gastrostomy tube with a feeding tube in the small bowel. 2. There is a small amount of ascites in the upper abdomen. 3. Bilateral pleural effusions with bibasilar atelectasis. 4. Anasarca. 5. Stable hepatic cysts Haris Lockwood MD Abdomen X-Ray 12/01/16 0000 Signed Impressions: Service Date/Time: Thursday, December 01, 2016 08:13 - CONCLUSION: 1. No evidence of obstruction. Kam Menezes MD Head CT 11/28/16 0800 Signed Impressions: Service Date/Time: Monday, November 28, 2016 08:34 - CONCLUSION: 1. The patient's subdural hemorrhage and intraparenchymal hemorrhage all appear to be undergoing the expected evolution. There is significant decrease in the amount of cerebral edema. 2. The ventricles are normal in size. The ventriculostomy is in good position. Chuy Fitzpatrick MD Maxillofacial CT 11/13/16 1316 Signed Impressions: Service Date/Time: Sunday, November 13, 2016 13:11 - CONCLUSION: Air-fluid level with admixture of air and fluid in the left sphenoid sinus compartment. Otherwise negative. Acute fracture is not identified. Yariel Odell MD Thoracic Spine CT 11/13/16 1311 Signed Impressions: Service Date/Time: Sunday, November 13, 2016 13:15 - CONCLUSION: No fracture or subluxation. Bobby Rasmussen MD Lumbar Spine CT 11/13/16 1311 Signed Impressions: Service Date/Time: Sunday, November 13, 2016 13:15 - CONCLUSION: 1. No acute fracture. Spinal canal and neural foramen appear to be adequate throughout. 2. Dextroscoliosis of the lumbar spine with mild associated degenerative changes 3. Diverticular disease of the sigmoid without diverticulitis Aftab Cramer MD Chest CT 11/13/16 1311 Signed Impressions: Service Date/Time: Sunday, November 13, 2016 13:17 - CONCLUSION: 1. Negative CT scan of the thorax. Chuy Fitzpatrick MD Cervical Spine CT 11/13/16 1311 Signed Impressions: Service Date/Time: Sunday, November 13, 2016 13:13 - CONCLUSION: 1. No acute fracture the cervical spine identified. There are degenerative changes as above. 2. There is fracture of the right side of the occipital bone. There is subdural hematoma in the posterior fossa on the right and intraparenchymal hemorrhage within the left cerebellar hemisphere. This was assessed by CT imaging of the brain. Chuy Fitzpatrick MD Physical Exam HEENT: Normocephalic CHEST: Resp. even/unlabored. CARDIAC: RRR ABDOMEN: Soft, nondistended, nontender; midline incision line well approximated with sutures. J tube bumper noted to be sutured in place with actual tube dislodged. EXTREMITIES: Mild generalized edema SIGNS AND DISPLAYS SALESPERSON: Confused. (Michela Schultz) Assessment and Plan Plan ASSESSMENT: - Dysphagia, FEN. Pt in ICU with severe TBI, respiratory failure, requiring prolonged ventilation. Plan is for tracheostomy later today. GI consulted for PEG. The electronics detail draftsperson is following and has recommended Jevity 1.5 at 60cc/hr. Spoke to both daughter at bedside re: EGD with peg tube placement, procedure, risks, benefits and their questions were answered and they would like to proceed. Of note, they mention that he has a remote hx of perforated ulcer requiring partial gastrectomy and has had intermittent stomach issues since that time. S/P EGD with unsuccessful PEG tube placement (11/24/16)----> . 1. Partial gastrectomy, S/P billroth II\gastritis antrum-biopsy esophagitis dital esophagus-biopsy NGT placed 2. Retroflexion was not performed. Pathology with moderate chronic gastritis negative for intestinal metaplasia and dysplasia, alvarez stain negative for helicobacter. Gastric mucosa tissue with moderate acute and chronic inflammatory changes consistent with reflux negative for intestinal metaplasia and dysplasia biopsy. Clincally distal esophagus. He then had J tube placed surgically by Dr. Sahni. We were reconsulted for dislodged J tube. The bumper is sutured in place but the actual tube has been dislodged. D/W Altman with Dr. Sahni and they report that he is getting a soft diet with night time feedings and would like to hold off on replacing tube until calorie count is done to see how much he is taking in. Of note, the tube was examined and it appears to have been broke/cut- the portion of the balloon is missing. ? retained portion of tube. Would examine stool to see if he passes this and if any signs of obstruction, get stat imaging and notify Dr. Sahni. PLAN: - Soft diet - Record meal percentages - Calorie count - Bumper/sutures to be removed, d/w Trauma/Nurse - Examine stool for any passage of retained J tube. - If any signs of obstruction, get stat imaging and notify Dr. Sahni - D/W Trauma team. Would like to get calorie count prior to having IR place new tube. Encourage po intake, record meal percentages, calorie count. If pt requires supplemental nutrition, will need to consult IR for J tube placement - GI will sign off, please reconsult as needed - Pt seen and examined by Dr. You and myself and this note is written on his behalf (Michela Schultz) Physician Comments Patient seen and examined Agree with above Continue with current supportive care Monitor labs We will sign off (Ammon You MD) Michela Schultz Dec 12, 2016 13:18 Ammon You MD Dec 12, 2016 16:52
[2016-12-12] MEDS ORDERED: HYDR-3799 PO (15:37)
[2016-12-12] MEDS ORDERED: TRAZ50TA12 PO (15:37)
[2016-12-12] MEDS ORDERED: MEGE40SU PO (15:37)
[2016-12-12] MEDS ORDERED: METO25TA3 PO (15:37)
[2016-12-12] MEDS ORDERED: ENOX30P SQ (15:37)
[2016-12-12] MEDS ORDERED: VALP250UDC PO (15:37)
[2016-12-12] MEDS ORDERED: OXYC1TAB63 PO (15:37)
[2016-12-12] MEDS ORDERED: SENNSYP PO (15:37)
[2016-12-12 16:00] VITALS: BP 122/78; PULSE 78; RESP 17; TEMP 96.1; O2SAT 97
[2016-12-12 20:00] VITALS: BP 114/62; PULSE 80; RESP 17; TEMP 96.5; O2SAT 98
[2016-12-12] MEDS: MAGNESIUM HYDROXIDE SUSP 30 ML CUP PO SCH (20:32)
[2016-12-12] MEDS: FAMOTIDINE 20 MG TAB PO SCH (20:32)
[2016-12-12] MEDS: traZODone HCL 50 MG TAB PO SCH (20:32)
[2016-12-13] VITALS: BP 105/64; PULSE 72; RESP 17; TEMP 96.1; O2SAT 100
[2016-12-13] MEDS: SODIUM CHLORIDE 1 GRAM TAB PO SCH ×4 (06:20→21:06)
[2016-12-13 08:00] VITALS: BP 139/86; PULSE 71; RESP 18; TEMP 97; O2SAT 98
[2016-12-13] MEDS: MEGESTROL ACETATE SUSP 400 MG/10 ML CUP PO SCH ×4 (09:45→21:07)
[2016-12-13] MEDS: FUROSEMIDE 40 MG/5 ML UNIT DOSE CUP PO SCH (09:46)
[2016-12-13] MEDS: SENNOSIDES SYRUP 8.8 MG/5 ML CUP PO SCH (09:46)
[2016-12-13] MEDS: VALPROIC ACID SYRUP 250 MG/5 ML UDC PO SCH ×3 (09:47→18:18)
[2016-12-13] MEDS: FAMOTIDINE 20 MG TAB PO SCH ×2 (09:48→21:06)
[2016-12-13] MEDS: hydrALAZINE HCL 25 MG TAB PO SCH ×2 (09:48→21:05)
[2016-12-13] MEDS: METOPROLOL TARTRATE 25 MG TAB PO SCH ×2 (09:49→21:05)
[2016-12-13] MEDS: POTASSIUM CHLORIDE 25 MEQ EFFERVESCENT TAB NG SCH (09:51)
[2016-12-13] MEDS: ENOXAPARIN SODIUM 30 MG/0.3 ML SYRINGE SQ SCH ×2 (09:51→21:06)
--- NOTE | 2016-12-13 11:34 | HHI.PR ---
Subjective Subjective Notes PTD: 30 Patient OOB and sitting in chair each repair. Daughter at bedside. No complaints offered. Objective Vitals/I&O Vital Signs Date Time Temp Pulse Resp B/P (MAP) Pulse Ox O2 Delivery O2 Flow Rate FiO2 12/13/16 08:00 97.0 71 18 139/86 (103) 98 12/09/16 17:56 21 Narrative Exam GENERAL: This is a 61-year-old male OOB in a Alta-chair chair No distress noted. SKIN: Warm and dry. HEAD: Atraumatic. Normocephalic. EYES: PERRLA ENT: No nasal bleeding or discharge. Mucous membranes pink and moist. NECK: Trachea midline. No JVD. CARDIOVASCULAR: Regular rate and rhythm. RESPIRATORY: No accessory muscle use. Lungs are clear to auscultation. Breath sounds equal bilaterally. No distress or dyspnea. GASTROINTESTINAL: BS + x 4 quads. Abdomen soft, non-tender, nondistended. MUSCULOSKELETAL: Extremities without cyanosis, or edema. + peripheral pulses x 4 extremities. Warm with good capillary refill and sensation. MAEW. NEUROLOGICAL: Awake and alert. Answers questions with one-two word answers. 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 disturbance ICD Codes: S06.9X9S - Unspecified intracranial injury with loss of consciousness of unspecified duration, sequela; F02.80 - Dementia in other diseases classified elsewhere without behavioral disturbance Status: Acute (4) Dyspnea and respiratory abnormalities ICD Codes: R06.00 - Dyspnea, unspecified; R06.89 - Other abnormalities of breathing Status: Resolved (5) Pain, generalized ICD Codes: R52 - Pain, unspecified Status: Acute (6) Subdural hemorrhage ICD Codes: I62.00 - Nontraumatic subdural hemorrhage, unspecified Status: Acute (7) Brain contusion ICD Codes: S06.2X9A - Diffuse traumatic brain injury with loss of consciousness of unspecified duration, initial encounter Status: Acute (8) Skull fractures ICD Codes: S02.91XA - Unspecified fracture of skull, initial encounter for closed fracture Status: Acute (9) Status post craniectomy ICD Codes: Z98.890 - Other specified postprocedural states Status: Acute Assessment and Plan AKHIOK: This is a 61-year-old male who was found down at home with an obvious scalp lac and raccoon eyes. GCS 5-6. Obtunded. He was intubated in the ED. + Cannabis. INJURIES: Skull fx SDH (temporal and parietal) LEFT cerebral contusions (w /compression of 4th ventricle) RIGHT temporal contusion LEFT parietal lobe contusion Procedures: 11/13: Intubated in the ED 11/13: Suboccipital craniectomy 11/24: BEDSIDE TRACH 11/25: Open jejunostomy placement 11/28: Ventric out 12/07: Downsized MANAGER CASE to #6 12/08: Decannulated self Consults: CCM. Neurosurgery. Palliative care. Speech therapy. Rehabilitation medicine. Neuropsych. [place] nurse liaison. Case management. Diet: Regular soft diet. Tolerating po diet. Encourage good po intake with each meal. Megace. Pulmonary: Encourage good pulmonary toileting. IS at bedside and pt encouraged to use. Rationale for use explained to patient, and verbalized understanding. Duo nebs. PAIN Management: Fentanyl patch 25 mcg. Percocet 5 mg q6h. Behavior: Trazadone 50 HS. Valproic 250 TID Activity: OOB. PT x 7 DAYS and OT ordered. (cranial helmet) GI prophylaxis: Pepcid. Bowel regimen: Senna. MOM. Bisacodyl [place] PRN. LBM: 12/12 DVT prophylaxis: Mechanical VTE with SCDs. Chemical management with Lovenox 30 BID SQ. DC Planning: Case management consulted for assistance with final discharge disposition. Patient does not have insurance, therefore placement has been difficult. However, patient has been progressing very well. He is now tolerating a po diet and has been ambulating. PT has been intensified to 7 days a week to promote progress to discharge home. Awaiting a decision about transferring pt to [facility] per family's request, along with accepting physician and facility. Patient is clear from a trauma surgery standpoint to safety discharge home or to a SNF. Emotional support provided to patient and family at bedside and plan of care discussed. Discussed with RN at bedside. Patient is hemodynamically stable and being managed on the med/surg floor. The trauma team will round each day, and evaluate plan of care on a daily basis. Skull fx SDH, LEFT cerebral contusions RIGHT temporal contusion LEFT parietal lobe contusion Neurosurgery consulted and assisting in management and care 11/13: Suboccipital craniectomy with ventric placement 11/28: Ventriculostomy removed Trazodone 50 HS Valproic 250 TID for agitation/restlessness ST cognitive and swallow eval Toterating po Lovenox BID OOB QD- PT ordered x 7 days/ week Respiratory failure Supportive care 11/24: MANAGER CASE placement 11/25: Open jejunostomy placement 12/07: Downsized MANAGER CASE to #6 12/08: Self removed trach Oral care BID Suction PRN HTN Lopressor 25mg BID Hydralazine 25mg q8 Lasix 20mg QD KCl 20meq QD BP improved Self removed J-tube. Patient self removed his J-tube on Wednesday night. Bumper has been removed by RN at bedside. Examined J-tube, and it appears to have been broken/cut as the balloon portion is missing He may have a retained portion of the J-tube internally. Discussed with RN to examine each of patient's stools for possible retained J- tube Monitor patient closely for obstruction If patient becomes distended - obtain stat KUB x-ray Notify Physician Problem Qualifiers (1) Traumatic brain injury: (2) Brain contusion: Qualified Codes: S06.2X9A - Diffuse traumatic brain injury with loss of consciousness of unspecified duration, initial encounter (3) Skull fractures: Rose Marie Brennan Dec 13, 2016 11:34
--- NOTE | 2016-12-13 11:34 | HHI.PR ---
Subjective Subjective Notes PTD: 30 Patient OOB and sitting in chair each repair. Daughter at bedside. No complaints offered. Objective Vitals/I&O Vital Signs Date Time Temp Pulse Resp B/P (MAP) Pulse Ox O2 Delivery O2 Flow Rate FiO2 12/13/16 08:00 97.0 71 18 139/86 (103) 98 12/09/16 17:56 21 Narrative Exam GENERAL: This is a 61-year-old male OOB in a Alta-chair chair No distress noted. SKIN: Warm and dry. HEAD: Atraumatic. Normocephalic. EYES: PERRLA ENT: No nasal bleeding or discharge. Mucous membranes pink and moist. NECK: Trachea midline. No JVD. CARDIOVASCULAR: Regular rate and rhythm. RESPIRATORY: No accessory muscle use. Lungs are clear to auscultation. Breath sounds equal bilaterally. No distress or dyspnea. GASTROINTESTINAL: BS + x 4 quads. Abdomen soft, non-tender, nondistended. MUSCULOSKELETAL: Extremities without cyanosis, or edema. + peripheral pulses x 4 extremities. Warm with good capillary refill and sensation. MAEW. NEUROLOGICAL: Awake and alert. Answers questions with one-two word answers. 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 disturbance ICD Codes: S06.9X9S - Unspecified intracranial injury with loss of consciousness of unspecified duration, sequela; F02.80 - Dementia in other diseases classified elsewhere without behavioral disturbance Status: Acute (4) Dyspnea and respiratory abnormalities ICD Codes: R06.00 - Dyspnea, unspecified; R06.89 - Other abnormalities of breathing Status: Resolved (5) Pain, generalized ICD Codes: R52 - Pain, unspecified Status: Acute (6) Subdural hemorrhage ICD Codes: I62.00 - Nontraumatic subdural hemorrhage, unspecified Status: Acute (7) Brain contusion ICD Codes: S06.2X9A - Diffuse traumatic brain injury with loss of consciousness of unspecified duration, initial encounter Status: Acute (8) Skull fractures ICD Codes: S02.91XA - Unspecified fracture of skull, initial encounter for closed fracture Status: Acute (9) Status post craniectomy ICD Codes: Z98.890 - Other specified postprocedural states Status: Acute Assessment and Plan [place]ILKOOT: This is a 61-year-old male who was found down at home with an obvious scalp lac and raccoon eyes. GCS 5-6. Obtunded. He was intubated in the ED. + Cannabis. INJURIES: Skull fx SDH (temporal and parietal) LEFT cerebral contusions (w /compression of 4th ventricle) RIGHT temporal contusion LEFT parietal lobe contusion Procedures: 11/13: Intubated in the ED 11/13: Suboccipital craniectomy 11/24: BEDSIDE TRACH 11/25: Open jejunostomy placement 11/28: Ventric out 12/07: Downsized POLICE RADIO DISPATCHER to #6 12/08: Decannulated self Consults: CCM. Neurosurgery. Palliative care. Speech therapy. Rehabilitation medicine. Neuropsych. [place] nurse liaison. Case management. Diet: Regular soft diet. Tolerating po diet. Encourage good po intake with each meal. Megace. Pulmonary: Encourage good pulmonary toileting. IS at bedside and pt encouraged to use. Rationale for use explained to patient, and verbalized understanding. Duo nebs. PAIN Management: Fentanyl patch 25 mcg. Percocet 5 mg q6h. Behavior: Trazadone 50 HS. Valproic 250 TID Activity: OOB. PT x 7 DAYS and OT ordered. (cranial helmet) GI prophylaxis: Pepcid. Bowel regimen: Senna. MOM. Bisacodyl [place] PRN. LBM: 12/12 DVT prophylaxis: Mechanical VTE with SCDs. Chemical management with Lovenox 30 BID SQ. DC Planning: Case management consulted for assistance with final discharge disposition. Patient does not have insurance, therefore placement has been difficult. However, patient has been progressing very well. He is now tolerating a po diet and has been ambulating. PT has been intensified to 7 days a week to promote progress to discharge home. Awaiting a decision about transferring pt to [facility] per family's request, along with accepting physician and facility. Patient is clear from a trauma surgery standpoint to safety discharge home or to a SNF. Emotional support provided to patient and family at bedside and plan of care discussed. Discussed with RN at bedside. Patient is hemodynamically stable and being managed on the med/surg floor. The trauma team will round each day, and evaluate plan of care on a daily basis. Skull fx SDH, LEFT cerebral contusions RIGHT temporal contusion LEFT parietal lobe contusion Neurosurgery consulted and assisting in management and care 11/13: Suboccipital craniectomy with ventric placement 11/28: Ventriculostomy removed Trazodone 50 HS Valproic 250 TID for agitation/restlessness ST cognitive and swallow eval Toterating po Lovenox BID OOB QD- PT ordered x 7 days/ week Respiratory failure Supportive care 11/24: POLICE RADIO DISPATCHER placement 11/25: Open jejunostomy placement 12/07: Downsized POLICE RADIO DISPATCHER to #6 12/08: Self removed trach Oral care BID Suction PRN HTN Lopressor 25mg BID Hydralazine 25mg q8 Lasix 20mg QD KCl 20meq QD BP improved Self removed J-tube. Patient self removed his J-tube on Wednesday night. Bumper has been removed by RN at bedside. Examined J-tube, and it appears to have been broken/cut as the balloon portion is missing He may have a retained portion of the J-tube internally. Discussed with RN to examine each of patient's stools for possible retained J- tube Monitor patient closely for obstruction If patient becomes distended - obtain stat KUB x-ray Notify Physician Problem Qualifiers (1) Traumatic brain injury: (2) Brain contusion: Qualified Codes: S06.2X9A - Diffuse traumatic brain injury with loss of consciousness of unspecified duration, initial encounter (3) Skull fractures: Rose Marie Brennan Dec 13, 2016 11:34
--- NOTE | 2016-12-13 11:34 | HHI.PR ---
Subjective Subjective Notes PTD: 30 Patient OOB and sitting in chair each repair. Daughter at bedside. No complaints offered. Objective Vitals/I&O Vital Signs Date Time Temp Pulse Resp B/P (MAP) Pulse Ox O2 Delivery O2 Flow Rate FiO2 12/13/16 08:00 97.0 71 18 139/86 (103) 98 12/09/16 17:56 21 Narrative Exam GENERAL: This is a 61-year-old male OOB in a Alta-chair chair No distress noted. SKIN: Warm and dry. HEAD: Atraumatic. Normocephalic. EYES: PERRLA ENT: No nasal bleeding or discharge. Mucous membranes pink and moist. NECK: Trachea midline. No JVD. CARDIOVASCULAR: Regular rate and rhythm. RESPIRATORY: No accessory muscle use. Lungs are clear to auscultation. Breath sounds equal bilaterally. No distress or dyspnea. GASTROINTESTINAL: BS + x 4 quads. Abdomen soft, non-tender, nondistended. MUSCULOSKELETAL: Extremities without cyanosis, or edema. + peripheral pulses x 4 extremities. Warm with good capillary refill and sensation. MAEW. NEUROLOGICAL: Awake and alert. Answers questions with one-two word answers. 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 disturbance ICD Codes: S06.9X9S - Unspecified intracranial injury with loss of consciousness of unspecified duration, sequela; F02.80 - Dementia in other diseases classified elsewhere without behavioral disturbance Status: Acute (4) Dyspnea and respiratory abnormalities ICD Codes: R06.00 - Dyspnea, unspecified; R06.89 - Other abnormalities of breathing Status: Resolved (5) Pain, generalized ICD Codes: R52 - Pain, unspecified Status: Acute (6) Subdural hemorrhage ICD Codes: I62.00 - Nontraumatic subdural hemorrhage, unspecified Status: Acute (7) Brain contusion ICD Codes: S06.2X9A - Diffuse traumatic brain injury with loss of consciousness of unspecified duration, initial encounter Status: Acute (8) Skull fractures ICD Codes: S02.91XA - Unspecified fracture of skull, initial encounter for closed fracture Status: Acute (9) Status post craniectomy ICD Codes: Z98.890 - Other specified postprocedural states Status: Acute Assessment and Plan [place]: This is a 61-year-old male who was found down at home with an obvious scalp lac and raccoon eyes. GCS 5-6. Obtunded. He was intubated in the ED. + Cannabis. INJURIES: Skull fx SDH (temporal and parietal) LEFT cerebral contusions (w /compression of 4th ventricle) RIGHT temporal contusion LEFT parietal lobe contusion Procedures: 11/13: Intubated in the ED 11/13: Suboccipital craniectomy 11/24: BEDSIDE TRACH 11/25: Open jejunostomy placement 11/28: Ventric out 12/07: Downsized REMEDIATION BIOANALYTICS CONSULTANT to #6 12/08: Decannulated self Consults: CCM. Neurosurgery. Palliative care. Speech therapy. Rehabilitation medicine. Neuropsych. [place] nurse liaison. Case management. Diet: Regular soft diet. Tolerating po diet. Encourage good po intake with each meal. Megace. Pulmonary: Encourage good pulmonary toileting. IS at bedside and pt encouraged to use. Rationale for use explained to patient, and verbalized understanding. Duo nebs. PAIN Management: Fentanyl patch 25 mcg. Percocet 5 mg q6h. Behavior: Trazadone 50 HS. Valproic 250 TID Activity: OOB. PT x 7 DAYS and OT ordered. (cranial helmet) GI prophylaxis: Pepcid. Bowel regimen: Senna. MOM. Bisacodyl NE PRN. LBM: 12/12 DVT prophylaxis: Mechanical VTE with SCDs. Chemical management with Lovenox 30 BID SQ. DC Planning: Case management consulted for assistance with final discharge disposition. Patient does not have insurance, therefore placement has been difficult. However, patient has been progressing very well. He is now tolerating a po diet and has been ambulating. PT has been intensified to 7 days a week to promote progress to discharge home. Awaiting a decision about transferring pt to [facility] per family's request, along with accepting physician and facility. Patient is clear from a trauma surgery standpoint to safety discharge home or to a SNF. Emotional support provided to patient and family at bedside and plan of care discussed. Discussed with RN at bedside. Patient is hemodynamically stable and being managed on the med/surg floor. The trauma team will round each day, and evaluate plan of care on a daily basis. Skull fx SDH, LEFT cerebral contusions RIGHT temporal contusion LEFT parietal lobe contusion Neurosurgery consulted and assisting in management and care 11/13: Suboccipital craniectomy with ventric placement 11/28: Ventriculostomy removed Trazodone 50 HS Valproic 250 TID for agitation/restlessness ST cognitive and swallow eval Toterating po Lovenox BID OOB QD- PT ordered x 7 days/ week Respiratory failure Supportive care 11/24: REMEDIATION BIOANALYTICS CONSULTANT placement 11/25: Open jejunostomy placement 12/07: Downsized REMEDIATION BIOANALYTICS CONSULTANT to #6 12/08: Self removed trach Oral care BID Suction PRN HTN Lopressor 25mg BID Hydralazine 25mg q8 Lasix 20mg QD KCl 20meq QD BP improved Self removed J-tube. Patient self removed his J-tube on Wednesday night. Bumper has been removed by RN at bedside. Examined J-tube, and it appears to have been broken/cut as the balloon portion is missing He may have a retained portion of the J-tube internally. Discussed with RN to examine each of patient's stools for possible retained J- tube Monitor patient closely for obstruction If patient becomes distended - obtain stat KUB x-ray Notify Physician Problem Qualifiers (1) Traumatic brain injury: (2) Brain contusion: Qualified Codes: S06.2X9A - Diffuse traumatic brain injury with loss of consciousness of unspecified duration, initial encounter (3) Skull fractures: Rose Marie Brennan Dec 13, 2016 11:34
[2016-12-13 12:00] VITALS: BP 137/56; PULSE 79; RESP 16; TEMP 98; O2SAT 98
[2016-12-13 16:00] VITALS: BP 122/74; PULSE 77; RESP 17; TEMP 98.8; O2SAT 98
[2016-12-13 20:00] VITALS: BP 123/77; PULSE 81; RESP 17; TEMP 97.6; O2SAT 98
[2016-12-13] MEDS: MAGNESIUM HYDROXIDE SUSP 30 ML CUP PO SCH (21:00)
[2016-12-13] MEDS: traZODone HCL 50 MG TAB PO SCH (21:06)
[2016-12-13 23:58] VITALS: BP 120/71; PULSE 76; RESP 17; TEMP 97.2; O2SAT 98
[2016-12-14] VITALS: BP 180/100; PULSE 101; RESP 18; TEMP 97.3; O2SAT 94
[2016-12-14] MEDS: SODIUM CHLORIDE 1 GRAM TAB PO SCH ×4 (01:28→21:52)
[2016-12-14] MEDS: SENNOSIDES SYRUP 8.8 MG/5 ML CUP PO SCH ×2 (07:40→09:50)
[2016-12-14 08:00] VITALS: BP 124/77; PULSE 69; RESP 18; TEMP 98.1; O2SAT 98
[2016-12-14] MEDS: VALPROIC ACID SYRUP 250 MG/5 ML UDC PO SCH ×3 (09:48→16:53)
[2016-12-14] MEDS: MEGESTROL ACETATE SUSP 400 MG/10 ML CUP PO SCH ×4 (09:49→21:51)
[2016-12-14] MEDS: FUROSEMIDE 40 MG/5 ML UNIT DOSE CUP PO SCH (09:50)
[2016-12-14] MEDS: ENOXAPARIN SODIUM 30 MG/0.3 ML SYRINGE SQ SCH ×2 (09:51→21:50)
[2016-12-14] MEDS: POTASSIUM CHLORIDE 25 MEQ EFFERVESCENT TAB NG SCH (09:53)
[2016-12-14] MEDS: FAMOTIDINE 20 MG TAB PO SCH ×2 (09:53→21:50)
[2016-12-14] MEDS: METOPROLOL TARTRATE 25 MG TAB PO SCH ×2 (09:53→21:50)
[2016-12-14] MEDS: hydrALAZINE HCL 25 MG TAB PO SCH ×2 (09:54→21:50)
--- NOTE | 2016-12-14 10:52 | HHI.PR ---
Neuropsych Emotional Emotional: Intact: Emotional, Anxious/Fearful, Depressed/Sad, Hostile/Resentful , Irritable/Angry/Frustrate, Labile, Constricted/Blunted Behavior Behavior: Intact: Behavior, Coping/Acceptance, Cooperative w/ Treatment, Motivation, Frustration Tolerance/[place], Impulsive/Agitated, Suicidal/Homicidal Risk Cognitive Cognitive: Severe: Cognitive, Attention/Concentration, Confused/Orientation, Insight/Awareness, Judgement/Problem-Solving, Memory Psychosocial Psychosocial: Intact: Psychosocial, Family/Other Adjustment, Realistic Expectation, Unable to Asses: Self-Esteem/Confidence Progress Notes/Response to Tx Contents of Sessions: Adjustment Time with Patient: 15 minutes Premorbid psychological status Premorbid Cognitive, Emotional and Behavioral Status: Stable. The patient is originally from [facility] and has a solid work history prior to this injury. The patient has no psychiatric difficulties, as described above. Substance abuse history is unremarkable. Behavioral Reactions of Patient and Family/Support System: Stable. The patient s family is experiencing ongoing issues of adjustment given the nature of the injury, and this aspect of recovery will require ongoing monitoring. Emotional/Behavioral Status of Patient and Family/Support System: Stable. Pertinent issues, if appropriate to this patients clinical care, are described in detail above. Maximizing acute care outcome It is recommended that the patient be monitored for emergent behavioral impulsivity as the medical condition evolves. This patients neuropathological challenges may limit their rehabilitation potential going forward, and these challenges will require specialized therapeutic skills to maximize outcome. Additionally, the patients family is experiencing ongoing issues of adjustment given the traumatic nature of the injury, and they will need ongoing psychological assistance. Anticipated Problems Ongoing areas of concern will include behavioral impulsivity, lack of insight and judgment, which is expected to improve with time and treatment. Presently , the patient remains intubated and sedated. Treatment Plan This clinician will continue to follow with you throughout the course of this patients acute care treatment, and I will be available to meet with the patient s family/support system to facilitate their understanding and the ongoing care of their family member. The goals of neuropsychological intervention shall be both educational and supportive to the family/support system as is deemed clinically appropriate. [facility] Level: V:Confused-non agitated Impression This is a 61 year old man s/p TBI 2T probable fall. Diagnosis: (1) Major neurocognitive disorder as late effect of traumatic brain injury without behavioral disturbance Status: Acute Progress Note Narrative Ongoing follow-up of patient seen bedside with trauma rounds. This is day 30 post injury. The patient removed his J-tube yesterday. He is awake, alert and following some commands. However, his higher level neurocognitive skills are considerably impaired, and he exhibits no insight, awareness or judgment, and as such does not have the cognitive capacity to make rational decisions. He is [place] I will continue to follow. Johan Pierson PhD Dec 14, 2016 10:51 am
[2016-12-14 12:00] VITALS: BP 110/76; PULSE 91; RESP 16; TEMP 97.3; O2SAT 99
--- NOTE | 2016-12-14 12:42 | HHI.PR ---
Subjective Subjective Notes Denies pain OOB in chair Objective Vitals/I&O Vital Signs Date Time Temp Pulse Resp B/P (MAP) Pulse Ox O2 Delivery O2 Flow Rate FiO2 12/14/16 08:00 98.1 69 18 124/77 (93) 98 Labs Date/Time Source Procedure Growth Status 11/24/16 06:00 Blood Peripheral Aerobic Blood Culture - Final NO GROWTH IN 5 DAYS Complete 11/24/16 06:00 Blood Peripheral Anaerobic Blood Culture - Final NO GROWTH IN 5 DAYS Complete 11/13/16 14:31 Cerebral Spinal Fluid Shunt Fluid Fungal Smear - Final NO FUNGAL ELEMENTS SEEN. Complete 11/13/16 14:31 Cerebral Spinal Fluid Shunt Fluid Fungal Culture - Final NO GROWTH IN 4 WEEKS Complete 11/23/16 18:00 Sputum Endotracheal Gram Stain - Final Complete 11/23/16 18:00 Sputum Culture - Final Escherichia Coli Complete 11/23/16 18:00 Urine Catheterized Urine Urine Culture - Final NO GROWTH IN 48 HOURS. Complete Radiology Last Impressions Chest X-Ray 12/06/16 0600 Signed Impressions: Service Date/Time: Tuesday, December 06, 2016 05:23 - CONCLUSION: Left base consolidation or atelectasis. Fabien Menjivar MD Consultation 12/03/16 0000 Signed Impressions: Service Date/Time: November 00:00 - CONCLUSION: Insufficient ascitic volume for safe paracentesis. Andrea Glez Jr., MD Abdomen/Pelvis CT 12/02/16 0000 Signed Impressions: Service Date/Time: Friday, December 02, 2016 18:58 - CONCLUSION: 1. Status post placement of a gastrostomy tube with a feeding tube in the small bowel. 2. There is a small amount of ascites in the upper abdomen. 3. Bilateral pleural effusions with bibasilar atelectasis. 4. Anasarca. 5. Stable hepatic cysts Haris Lockwood MD Abdomen X-Ray 12/01/16 0000 Signed Impressions: Service Date/Time: Thursday, December 01, 2016 08:13 - CONCLUSION: 1. No evidence of obstruction. Kam Menezes MD Head CT 11/28/16 0800 Signed Impressions: Service Date/Time: Monday, November 28, 2016 08:34 - CONCLUSION: 1. The patient's subdural hemorrhage and intraparenchymal hemorrhage all appear to be undergoing the expected evolution. There is significant decrease in the amount of cerebral edema. 2. The ventricles are normal in size. The ventriculostomy is in good position. Chuy Fitzpatrick MD Maxillofacial CT 11/13/16 1316 Signed Impressions: Service Date/Time: Sunday, November 13, 2016 13:11 - CONCLUSION: Air-fluid level with admixture of air and fluid in the left sphenoid sinus compartment. Otherwise negative. Acute fracture is not identified. Yariel Odell MD Thoracic Spine CT 11/13/161310 Signed Impressions: Service Date/Time: Sunday, November 13, 2016 13:15 - CONCLUSION: No fracture or subluxation. Bobby Rasmussen MD Lumbar Spine CT 11/13/161310 Signed Impressions: Service Date/Time: Sunday, November 13, 2016 13:15 - CONCLUSION: 1. No acute fracture. Spinal canal and neural foramen appear to be adequate throughout. 2. Dextroscoliosis of the lumbar spine with mild associated degenerative changes 3. Diverticular disease of the sigmoid without diverticulitis Aftab Cramer MD Chest CT 11/13/16 131 Signed Impressions: Service Date/Time: Sunday, November 13, 2016 13:17 - CONCLUSION: 1. Negative CT scan of the thorax. Chuy Fitzpatrick MD Cervical Spine CT 11/13/16 1311 Signed Impressions: Service Date/Time: Sunday, November 13, 2016 13:13 - CONCLUSION: 1. No acute fracture the cervical spine identified. There are degenerative changes as above. 2. There is fracture of the right side of the occipital bone. There is subdural hematoma in the posterior fossa on the right and intraparenchymal hemorrhage within the left cerebellar hemisphere. This was assessed by CT imaging of the brain. Chuy Fitzpatrick MD Narrative Exam GENERAL: 61-year-old well-nourished, well developed male OOB in chair. SKIN: Warm and dry. HEAD:Normocephalic. EYES: PERRL. ENT: No nasal bleeding or discharge. Mucous membranes pink and moist. NECK: Trachea midline. No JVD. CARDIOVASCULAR: Regular rate and rhythm. RESPIRATORY: No accessory muscle use. Lungs clear to auscultation. Breath sounds equal bilaterally. GASTROINTESTINAL: Abdomen soft, non-tender, nondistended. + BS. MUSCULOSKELETAL: Extremities without cyanosis, or edema. MAEW. + perfused NEUROLOGICAL: Awake and alert. Speech normal. 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 disturbance ICD Codes: S06.9X9S - Unspecified intracranial injury with loss of consciousness of unspecified duration, sequela; F02.80 - Dementia in other diseases classified elsewhere without behavioral disturbance Status: Acute (4) Dyspnea and respiratory abnormalities ICD Codes: R06.00 - Dyspnea, unspecified; R06.89 - Other abnormalities of breathing Status: Resolved (5) Pain, generalized ICD Codes: R52 - Pain, unspecified Status: Acute (6) Subdural hemorrhage ICD Codes: I62.00 - Nontraumatic subdural hemorrhage, unspecified Status: Acute (7) Brain contusion ICD Codes: S06.2X9A - Diffuse traumatic brain injury with loss of consciousness of unspecified duration, initial encounter Status: Acute (8) Skull fractures ICD Codes: S02.91XA - Unspecified fracture of skull, initial encounter for closed fracture Status: Acute (9) Status post craniectomy ICD Codes: Z98.890 - Other specified postprocedural states Status: Acute Assessment and Plan [place]: Found down at home with obvious scalp lac and raccoon eyes. GCS 5-6. INJURIES: Skull fx SDH (temporal and parietal) LEFT cerebral contusions (w /compression of 4th ventricle) RIGHT temporal contusion LEFT parietal lobe contusion 11/13: Intubated in the ED 11/13: Suboccipital craniectomy with ventric placement 11/24: MANUFACTURING PROCESS TECHNICIAN placement 11/25: Open jejunostomy placement 11/28: Ventriculostomy removed 12/07: Downsized MANUFACTURING PROCESS TECHNICIAN to #6 12/08: Decannulated self 12/12: Pulled out own J-tube Diet: Soft diet, Enlive supplements. ST following. Calorie count Pulm: RA. Nebs. Pain: Fentanyl patch. Percocet. Activity: OOB. PT x 7 days and OT ordered. Ambulating with PT. GI: Pepcid Bowel: Senna. MOM. Bisacodyl [place] PRN. LBM: 12/13 DVT: SCD's. Lovenox 30 BID Skull fx, SDH, LEFT cerebral contusions, RIGHT temporal contusion, LEFT parietal lobe contusion Neurosurgery consulted 11/13: Suboccipital craniectomy with ventric placement 11/28: Ventriculostomy removed Trazodone 50 HS Valproic 250 TID for agitation/restlessness ST cognitive and swallow eval Lovenox OOB QD- PT ordered x 7 days/ week Respiratory failure Supportive care 11/24: MANUFACTURING PROCESS TECHNICIAN placement 11/25: Open jejunostomy placement 12/07: Downsized MANUFACTURING PROCESS TECHNICIAN to #6 12/07: Downsized MANUFACTURING PROCESS TECHNICIAN to #6 12/08: Decannulated self On RA HTN Lopressor 25mg BID Hydralazine 25mg q8 Lasix 20mg QD KCl 20meq QD BP improved Plan of care discussed with RN at bedside. No family present during visit. Case management consulted to assist with discharge planning. Patient has been cleared for discharge, but family cannot care for him at home. Case management assisting to find other options for placement. The exam, history, and the medical decision-making described in the above note were completed with the assistance of the mid-level provider. I reviewed and agree with the findings presented. I attest that I had a [id number] encounter with the patient on the same day, and personally performed and documented my assessment and findings in the medical record. Problem Qualifiers (1) Traumatic brain injury: (2) Brain contusion: Qualified Codes: S06.2X9A - Diffuse traumatic brain injury with loss of consciousness of unspecified duration, initial encounter (3) Skull fractures: Deepa Cobian Dec 14, 2016 12:42 Donavon Alfaro MD Dec 16, 2016 12:58
--- NOTE | 2016-12-14 12:42 | HHI.PR ---
Subjective Subjective Notes Denies pain OOB in chair Objective Vitals/I&O Vital Signs Date Time Temp Pulse Resp B/P (MAP) Pulse Ox O2 Delivery O2 Flow Rate FiO2 12/14/16 08:00 98.1 69 18 124/77 (93) 98 Labs Date/Time Source Procedure Growth Status 11/24/16 06:00 Blood Peripheral Aerobic Blood Culture - Final NO GROWTH IN 5 DAYS Complete 11/24/16 06:00 Blood Peripheral Anaerobic Blood Culture - Final NO GROWTH IN 5 DAYS Complete 11/13/16 14:31 Cerebral Spinal Fluid Shunt Fluid Fungal Smear - Final NO FUNGAL ELEMENTS SEEN. Complete 11/13/16 14:31 Cerebral Spinal Fluid Shunt Fluid Fungal Culture - Final NO GROWTH IN 4 WEEKS Complete 11/23/16 18:00 Sputum Endotracheal Gram Stain - Final Complete 11/23/16 18:00 Sputum Culture - Final Escherichia Coli Complete 11/23/16 18:00 Urine Catheterized Urine Urine Culture - Final NO GROWTH IN 48 HOURS. Complete Radiology Last Impressions Chest X-Ray 12/06/16 0600 Signed Impressions: Service Date/Time: Tuesday, December 06, 2016 05:23 - CONCLUSION: Left base consolidation or atelectasis. Fabien Menjivar MD Consultation 12/03/16 0000 Signed Impressions: Service Date/Time: November 00:00 - CONCLUSION: Insufficient ascitic volume for safe paracentesis. Andrea Glez Jr., MD Abdomen/Pelvis CT 12/02/16 0000 Signed Impressions: Service Date/Time: Friday, December 02, 2016 18:58 - CONCLUSION: 1. Status post placement of a gastrostomy tube with a feeding tube in the small bowel. 2. There is a small amount of ascites in the upper abdomen. 3. Bilateral pleural effusions with bibasilar atelectasis. 4. Anasarca. 5. Stable hepatic cysts Haris Lockwood MD Abdomen X-Ray 12/01/16 0000 Signed Impressions: Service Date/Time: Thursday, December 01, 2016 08:13 - CONCLUSION: 1. No evidence of obstruction. Kam Menezes MD Head CT 11/28/16 0800 Signed Impressions: Service Date/Time: Monday, November 28, 2016 08:34 - CONCLUSION: 1. The patient's subdural hemorrhage and intraparenchymal hemorrhage all appear to be undergoing the expected evolution. There is significant decrease in the amount of cerebral edema. 2. The ventricles are normal in size. The ventriculostomy is in good position. Chuy Fitzpatrick MD Maxillofacial CT 11/13/16 1316 Signed Impressions: Service Date/Time: Sunday, November 13, 2016 13:11 - CONCLUSION: Air-fluid level with admixture of air and fluid in the left sphenoid sinus compartment. Otherwise negative. Acute fracture is not identified. Yariel Odell MD Thoracic Spine CT 11/13/161310 Signed Impressions: Service Date/Time: Sunday, November 13, 2016 13:15 - CONCLUSION: No fracture or subluxation. Bobby Rasmussen MD Lumbar Spine CT 11/13/161310 Signed Impressions: Service Date/Time: Sunday, November 13, 2016 13:15 - CONCLUSION: 1. No acute fracture. Spinal canal and neural foramen appear to be adequate throughout. 2. Dextroscoliosis of the lumbar spine with mild associated degenerative changes 3. Diverticular disease of the sigmoid without diverticulitis Aftab Cramer MD Chest CT 11/13/16 131 Signed Impressions: Service Date/Time: Sunday, November 13, 2016 13:17 - CONCLUSION: 1. Negative CT scan of the thorax. Chuy Fitzpatrick MD Cervical Spine CT 11/13/16 1311 Signed Impressions: Service Date/Time: Sunday, November 13, 2016 13:13 - CONCLUSION: 1. No acute fracture the cervical spine identified. There are degenerative changes as above. 2. There is fracture of the right side of the occipital bone. There is subdural hematoma in the posterior fossa on the right and intraparenchymal hemorrhage within the left cerebellar hemisphere. This was assessed by CT imaging of the brain. Chuy Fitzpatrick MD Narrative Exam GENERAL: 61-year-old well-nourished, well developed male OOB in chair. SKIN: Warm and dry. HEAD:Normocephalic. EYES: PERRL. ENT: No nasal bleeding or discharge. Mucous membranes pink and moist. NECK: Trachea midline. No JVD. CARDIOVASCULAR: Regular rate and rhythm. RESPIRATORY: No accessory muscle use. Lungs clear to auscultation. Breath sounds equal bilaterally. GASTROINTESTINAL: Abdomen soft, non-tender, nondistended. + BS. MUSCULOSKELETAL: Extremities without cyanosis, or edema. MAEW. + perfused NEUROLOGICAL: Awake and alert. Speech normal. 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 disturbance ICD Codes: S06.9X9S - Unspecified intracranial injury with loss of consciousness of unspecified duration, sequela; F02.80 - Dementia in other diseases classified elsewhere without behavioral disturbance Status: Acute (4) Dyspnea and respiratory abnormalities ICD Codes: R06.00 - Dyspnea, unspecified; R06.89 - Other abnormalities of breathing Status: Resolved (5) Pain, generalized ICD Codes: R52 - Pain, unspecified Status: Acute (6) Subdural hemorrhage ICD Codes: I62.00 - Nontraumatic subdural hemorrhage, unspecified Status: Acute (7) Brain contusion ICD Codes: S06.2X9A - Diffuse traumatic brain injury with loss of consciousness of unspecified duration, initial encounter Status: Acute (8) Skull fractures ICD Codes: S02.91XA - Unspecified fracture of skull, initial encounter for closed fracture Status: Acute (9) Status post craniectomy ICD Codes: Z98.890 - Other specified postprocedural states Status: Acute Assessment and Plan [place]: Found down at home with obvious scalp lac and raccoon eyes. GCS 5-6. INJURIES: Skull fx SDH (temporal and parietal) LEFT cerebral contusions (w /compression of 4th ventricle) RIGHT temporal contusion LEFT parietal lobe contusion 11/13: Intubated in the ED 11/13: Suboccipital craniectomy with ventric placement 11/24: [employer] placement 11/25: Open jejunostomy placement 11/28: Ventriculostomy removed 12/07: Downsized [employer]IG[employer] C[employer] SE[employer]ER to #6 12/08: Decannulated self 12/12: Pulled out own J-tube Diet: Soft diet, Enlive supplements. ST following. Calorie count Pulm: RA. Nebs. Pain: Fentanyl patch. Percocet. Activity: OOB. PT x 7 days and OT ordered. Ambulating with PT. GI: Pepcid Bowel: Senna. MOM. Bisacodyl [place] PRN. LBM: 12/13 DVT: SCD's. Lovenox 30 BID Skull fx, SDH, LEFT cerebral contusions, RIGHT temporal contusion, LEFT parietal lobe contusion Neurosurgery consulted 11/13: Suboccipital craniectomy with ventric placement 11/28: Ventriculostomy removed Trazodone 50 HS Valproic 250 TID for agitation/restlessness ST cognitive and swallow eval Lovenox OOB QD- PT ordered x 7 days/ week Respiratory failure Supportive care 11/24: C[employer] placement 11/25: Open jejunostomy placement 12/07: Downsized CIG[employer] C[employer] SE[employer]ER to #6 12/07: Downsized CIG[employer] C[employer] SE[employer]ER to #6 12/08: Decannulated self On RA HTN Lopressor 25mg BID Hydralazine 25mg q8 Lasix 20mg QD KCl 20meq QD BP improved Plan of care discussed with RN at bedside. No family present during visit. Case management consulted to assist with discharge planning. Patient has been cleared for discharge, but family cannot care for him at home. Case management assisting to find other options for placement. The exam, history, and the medical decision-making described in the above note were completed with the assistance of the mid-level provider. I reviewed and agree with the findings presented. I attest that I had a [id number] encounter with the patient on the same day, and personally performed and documented my assessment and findings in the medical record. Problem Qualifiers (1) Traumatic brain injury: (2) Brain contusion: Qualified Codes: S06.2X9A - Diffuse traumatic brain injury with loss of consciousness of unspecified duration, initial encounter (3) Skull fractures: Deepa Cobian Dec 14, 2016 12:42 Donavon Alfaro MD Dec 16, 2016 12:58
--- NOTE | 2016-12-14 12:42 | HHI.PR ---
Subjective Subjective Notes Denies pain OOB in chair Objective Vitals/I&O Vital Signs Date Time Temp Pulse Resp B/P (MAP) Pulse Ox O2 Delivery O2 Flow Rate FiO2 12/14/16 08:00 98.1 69 18 124/77 (93) 98 Labs Date/Time Source Procedure Growth Status 11/24/16 06:00 Blood Peripheral Aerobic Blood Culture - Final NO GROWTH IN 5 DAYS Complete 11/24/16 06:00 Blood Peripheral Anaerobic Blood Culture - Final NO GROWTH IN 5 DAYS Complete 11/13/16 14:31 Cerebral Spinal Fluid Shunt Fluid Fungal Smear - Final NO FUNGAL ELEMENTS SEEN. Complete 11/13/16 14:31 Cerebral Spinal Fluid Shunt Fluid Fungal Culture - Final NO GROWTH IN 4 WEEKS Complete 11/23/16 18:00 Sputum Endotracheal Gram Stain - Final Complete 11/23/16 18:00 Sputum Culture - Final Escherichia Coli Complete 11/23/16 18:00 Urine Catheterized Urine Urine Culture - Final NO GROWTH IN 48 HOURS. Complete Radiology Last Impressions Chest X-Ray 12/06/16 0600 Signed Impressions: Service Date/Time: Tuesday, December 06, 2016 05:23 - CONCLUSION: Left base consolidation or atelectasis. Fabien Menjivar MD Consultation 12/03/16 0000 Signed Impressions: Service Date/Time: November 00:00 - CONCLUSION: Insufficient ascitic volume for safe paracentesis. Andrea Glez Jr., MD Abdomen/Pelvis CT 12/02/16 0000 Signed Impressions: Service Date/Time: Friday, December 02, 2016 18:58 - CONCLUSION: 1. Status post placement of a gastrostomy tube with a feeding tube in the small bowel. 2. There is a small amount of ascites in the upper abdomen. 3. Bilateral pleural effusions with bibasilar atelectasis. 4. Anasarca. 5. Stable hepatic cysts Haris Lockwood MD Abdomen X-Ray 12/01/16 0000 Signed Impressions: Service Date/Time: Thursday, December 01, 2016 08:13 - CONCLUSION: 1. No evidence of obstruction. Kam Menezes MD Head CT 11/28/16 0800 Signed Impressions: Service Date/Time: Monday, November 28, 2016 08:34 - CONCLUSION: 1. The patient's subdural hemorrhage and intraparenchymal hemorrhage all appear to be undergoing the expected evolution. There is significant decrease in the amount of cerebral edema. 2. The ventricles are normal in size. The ventriculostomy is in good position. Chuy Fitzpatrick MD Maxillofacial CT 11/13/16 1316 Signed Impressions: Service Date/Time: Sunday, November 13, 2016 13:11 - CONCLUSION: Air-fluid level with admixture of air and fluid in the left sphenoid sinus compartment. Otherwise negative. Acute fracture is not identified. Yariel Odell MD Thoracic Spine CT 11/13/161310 Signed Impressions: Service Date/Time: Sunday, November 13, 2016 13:15 - CONCLUSION: No fracture or subluxation. Bobby Rasmussen MD Lumbar Spine CT 11/13/161310 Signed Impressions: Service Date/Time: Sunday, November 13, 2016 13:15 - CONCLUSION: 1. No acute fracture. Spinal canal and neural foramen appear to be adequate throughout. 2. Dextroscoliosis of the lumbar spine with mild associated degenerative changes 3. Diverticular disease of the sigmoid without diverticulitis Aftab Cramer MD Chest CT 11/13/16 131 Signed Impressions: Service Date/Time: Sunday, November 13, 2016 13:17 - CONCLUSION: 1. Negative CT scan of the thorax. Chuy Fitzpatrick MD Cervical Spine CT 11/13/16 1311 Signed Impressions: Service Date/Time: Sunday, November 13, 2016 13:13 - CONCLUSION: 1. No acute fracture the cervical spine identified. There are degenerative changes as above. 2. There is fracture of the right side of the occipital bone. There is subdural hematoma in the posterior fossa on the right and intraparenchymal hemorrhage within the left cerebellar hemisphere. This was assessed by CT imaging of the brain. Chuy Fitzpatrick MD Narrative Exam GENERAL: 61-year-old well-nourished, well developed male OOB in chair. SKIN: Warm and dry. HEAD:Normocephalic. EYES: PERRL. ENT: No nasal bleeding or discharge. Mucous membranes pink and moist. NECK: Trachea midline. No JVD. CARDIOVASCULAR: Regular rate and rhythm. RESPIRATORY: No accessory muscle use. Lungs clear to auscultation. Breath sounds equal bilaterally. GASTROINTESTINAL: Abdomen soft, non-tender, nondistended. + BS. MUSCULOSKELETAL: Extremities without cyanosis, or edema. MAEW. + perfused NEUROLOGICAL: Awake and alert. Speech normal. 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 disturbance ICD Codes: S06.9X9S - Unspecified intracranial injury with loss of consciousness of unspecified duration, sequela; F02.80 - Dementia in other diseases classified elsewhere without behavioral disturbance Status: Acute (4) Dyspnea and respiratory abnormalities ICD Codes: R06.00 - Dyspnea, unspecified; R06.89 - Other abnormalities of breathing Status: Resolved (5) Pain, generalized ICD Codes: R52 - Pain, unspecified Status: Acute (6) Subdural hemorrhage ICD Codes: I62.00 - Nontraumatic subdural hemorrhage, unspecified Status: Acute (7) Brain contusion ICD Codes: S06.2X9A - Diffuse traumatic brain injury with loss of consciousness of unspecified duration, initial encounter Status: Acute (8) Skull fractures ICD Codes: S02.91XA - Unspecified fracture of skull, initial encounter for closed fracture Status: Acute (9) Status post craniectomy ICD Codes: Z98.890 - Other specified postprocedural states Status: Acute Assessment and Plan [place]: Found down at home with obvious scalp lac and raccoon eyes. GCS 5-6. INJURIES: Skull fx SDH (temporal and parietal) LEFT cerebral contusions (w /compression of 4th ventricle) RIGHT temporal contusion LEFT parietal lobe contusion 11/13: Intubated in the ED 11/13: Suboccipital craniectomy with ventric placement 11/24: [employer] placement 11/25: Open jejunostomy placement 11/28: Ventriculostomy removed 12/07: Downsized [employer] to #6 12/08: Decannulated self 12/12: Pulled out own J-tube Diet: Soft diet, Enlive supplements. ST following. Calorie count Pulm: RA. Nebs. Pain: Fentanyl patch. Percocet. Activity: OOB. PT x 7 days and OT ordered. Ambulating with PT. GI: Pepcid Bowel: Senna. MOM. Bisacodyl [place] PRN. LBM: 12/13 DVT: SCD's. Lovenox 30 BID Skull fx, SDH, LEFT cerebral contusions, RIGHT temporal contusion, LEFT parietal lobe contusion Neurosurgery consulted 11/13: Suboccipital craniectomy with ventric placement 11/28: Ventriculostomy removed Trazodone 50 HS Valproic 250 TID for agitation/restlessness ST cognitive and swallow eval Lovenox OOB QD- PT ordered x 7 days/ week Respiratory failure Supportive care 11/24: [employer] placement 11/25: Open jejunostomy placement 12/07: Downsized [employer] to #6 12/07: Downsized [employer] to #6 12/08: Decannulated self On RA HTN Lopressor 25mg BID Hydralazine 25mg q8 Lasix 20mg QD KCl 20meq QD BP improved Plan of care discussed with RN at bedside. No family present during visit. Case management consulted to assist with discharge planning. Patient has been cleared for discharge, but family cannot care for him at home. Case management assisting to find other options for placement. The exam, history, and the medical decision-making described in the above note were completed with the assistance of the mid-level provider. I reviewed and agree with the findings presented. I attest that I had a [id number] encounter with the patient on the same day, and personally performed and documented my assessment and findings in the medical record. Problem Qualifiers (1) Traumatic brain injury: (2) Brain contusion: Qualified Codes: S06.2X9A - Diffuse traumatic brain injury with loss of consciousness of unspecified duration, initial encounter (3) Skull fractures: Deepa Cobian Dec 14, 2016 12:42 Donavon Alfaro MD Dec 16, 2016 12:58
[2016-12-14 16:00] VITALS: BP 116/69; PULSE 80; RESP 16; TEMP 97.8; O2SAT 99
--- NOTE | 2016-12-14 17:19 | HHI.HCPN ---
Reason for visit a. To assist with evaluation and management of symptoms including: Pain, dyspnea b. To assist medical decision maker(s) with: better understanding of current medical conditions; weighing benefits/burdens of medical treatment options; making medical treatment decisions. (Norma oGodrich) Subjective/Interval History This is a 61 year old male brought to [place] as a trauma alert under [facility] 167 11/13/16, after being found down at home by family with an obvious scalp hematoma to the posterior part of his head, unconscious. He was emergently intubated in the ED and underwent left suboccipital craniectomy with evacuation of cerebellar hemorrhage and placement of a ventriculostomy catheter via a right frontal manas hole. Extubated, decannulated, sitting up eating. Speech clear. Shows some memory impairment but does have some recall with cueing. Does not recall how he got into the hospital, does not remember how he got the head trauma. Does recall that he is the caregiver for his mother, he has 3 daughters, that he speaks several languages and was born in [place]. He is cleared for discharge pending placement. His daughters want him evaluated at [facility] and state he cannot come home due to family dynamics. His mother has Alzheimer's and he has been the caregiver. Without payor source SNF placement is difficult, and family is refusing SNF. Case management following. . (Norma Goodrich) Advance Directives Living Will: Never completed Health Care Surrogate: Never completed Durable Power of Hydraulic Tester: Never completed (Norma Goodrich) Objective Vital Signs Date Time Temp Pulse Resp B/P (MAP) Pulse Ox O2 Delivery O2 Flow Rate FiO2 12/14/16 16:00 97.8 80 16 116/69 (85) 99 12/14/16 12:00 97.3 91 16 110/76 (87) 99 12/14/16 08:00 98.1 69 18 124/77 (93) 98 12/14/16 00:00 97.3 101 18 180/100 (126) 94 12/13/16 23:58 97.2 76 17 120/71 (87) 98 12/13/16 20:00 97.6 81 17 123/77 (92) 98 Intake & Output 12/14/16 12/14/16 07:00 19:00 Intake Total 240 ml Balance 240 ml Intake Oral 240 ml # Voids 2 Physical Exam CONSTITUTIONAL/GENERAL: This is a thin middle-aged male, speech clear, slightly halting. TUBES/LINES/DRAINS: PIV x 1 CARDIOVASCULAR: Regular rate and rhythm without murmurs, gallops, or rubs. Peripheral pulses symmetric. RESPIRATORY/CHEST: Symmetric, unlabored respirations. Breath sounds clear to auscultation. On room air. GASTROINTESTINAL: Abdomen, flat, only light palpation secondary to tenderness. Positive bowel sounds present. J-tube clamped. Abdominal binder in place. GENITOURINARY: Without palpable bladder distension. MUSCULOSKELETAL: Extremities without clubbing, cyanosis, or edema. No mottling or clubbing. NEUROLOGICAL: Awake, alert, oriented to self. Impaired memory and recall PSYCHIATRIC: Calm, pleasant. . (Norma Goodrich) Diagnostic Tests Laboratory Date/Time Source Procedure Growth Status 11/24/16 06:00 Blood Peripheral Aerobic Blood Culture - Final NO GROWTH IN 5 DAYS Complete 11/24/16 06:00 Blood Peripheral Anaerobic Blood Culture - Final NO GROWTH IN 5 DAYS Complete 11/13/16 14:31 Cerebral Spinal Fluid Shunt Fluid Fungal Smear - Final NO FUNGAL ELEMENTS SEEN. Complete 11/13/16 14:31 Cerebral Spinal Fluid Shunt Fluid Fungal Culture - Final NO GROWTH IN 4 WEEKS Complete 11/23/16 18:00 Sputum Endotracheal Gram Stain - Final Complete 11/23/16 18:00 Sputum Culture - Final Escherichia Coli Complete 11/23/16 18:00 Urine Catheterized Urine Urine Culture - Final NO GROWTH IN 48 HOURS. Complete (Norma Goodrich) Imaging Last Impressions Chest X-Ray 12/06/16 0600 Signed Impressions: Service Date/Time: Tuesday, December 06, 2016 05:23 - CONCLUSION: Left base consolidation or atelectasis. Fabien Menjivar MD Consultation 12/03/16 0000 Signed Impressions: Service Date/Time: November 00:00 - CONCLUSION: Insufficient ascitic volume for safe paracentesis. Andrea Glez Jr., MD Abdomen/Pelvis CT 12/02/16 0000 Signed Impressions: Service Date/Time: Friday, December 02, 2016 18:58 - CONCLUSION: 1. Status post placement of a gastrostomy tube with a feeding tube in the small bowel. 2. There is a small amount of ascites in the upper abdomen. 3. Bilateral pleural effusions with bibasilar atelectasis. 4. Anasarca. 5. Stable hepatic cysts Haris Lockwood MD Abdomen X-Ray 12/01/16 0000 Signed Impressions: Service Date/Time: Thursday, December 01, 2016 08:13 - CONCLUSION: 1. No evidence of obstruction. Kam Menezes MD Head CT 11/28/16 0800 Signed Impressions: Service Date/Time: Monday, November 28, 2016 08:34 - CONCLUSION: 1. The patient's subdural hemorrhage and intraparenchymal hemorrhage all appear to be undergoing the expected evolution. There is significant decrease in the amount of cerebral edema. 2. The ventricles are normal in size. The ventriculostomy is in good position. Chuy Fitzpatrick MD Maxillofacial CT 11/13/16 1316 Signed Impressions: Service Date/Time: Sunday, November 13, 2016 13:11 - CONCLUSION: Air-fluid level with admixture of air and fluid in the left sphenoid sinus compartment. Otherwise negative. Acute fracture is not identified. Yariel Odell MD Thoracic Spine CT 11/13/16 1311 Signed Impressions: Service Date/Time: Sunday, November 13, 2016 13:15 - CONCLUSION: No fracture or subluxation. Bobby Rasmussen MD Lumbar Spine CT 11/13/16 1311 Signed Impressions: Service Date/Time: Sunday, November 13, 2016 13:15 - CONCLUSION: 1. No acute fracture. Spinal canal and neural foramen appear to be adequate throughout. 2. Dextroscoliosis of the lumbar spine with mild associated degenerative changes 3. Diverticular disease of the sigmoid without diverticulitis Aftab Cramer MD Chest CT 11/13/16 1311 Signed Impressions: Service Date/Time: Sunday, November 13, 2016 13:17 - CONCLUSION: 1. Negative CT scan of the thorax. Chuy Fitzpatrick MD Cervical Spine CT 11/13/16 1311 Signed Impressions: Service Date/Time: Sunday, November 13, 2016 13:13 - CONCLUSION: 1. No acute fracture the cervical spine identified. There are degenerative changes as above. 2. There is fracture of the right side of the occipital bone. There is subdural hematoma in the posterior fossa on the right and intraparenchymal hemorrhage within the left cerebellar hemisphere. This was assessed by CT imaging of the brain. Chuy Fitzpatrick MD Procedures 11/30/16- Ventriculostomy drain removed 11/25/16 - J-tube placed via open approach. 11/24/16 - tracheostomy placement 11/24/16 - attempted esophageal PEG placement, failed. 11/13/16 - intubation 11/13/16 - right frontal manas hole with placement of ventriculostomy catheter 11/13/16- left suboccipital craniectomy, evacuation of cerebellar hemorrhage. . (Norma Goodrich) Assessment and Plan Disease Oriented Problem List: (1) Status post craniectomy (2) Traumatic brain injury (3) Skull fractures (4) Intracranial hemorrhage (5) Major neurocognitive disorder as late effect of traumatic brain injury without behavioral disturbance Symptom Scale: (1) Dyspnea and respiratory abnormalities 0-10 Scale: Unable to quantify (2) Pain, generalized 0-10 Scale: Unable to quantify Pertinent Non-Medical Issues Psychosocial:He was born in [facility] and lived in many countries around the world, moving to the [facility] in 1997 to settle in [place]. 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 He currently works at [employer]. He speaks multiple languages to include Czech, South Sudanese, Malay , Norwegian and Trinidadian. He lives with his mother to provide care for her, as she has Alzheimer's dementia. Spiritual: He was raised Anabaptist and would appreciate community medical center visits. Legal: He has 3 daughters who will serve as joint healthcare proxies. His mother has Alzheimer's dementia and is unable to participate in decision-making. Ethical issues impacting care: Circumstances surrounding patient's injury are not known, however, the [place] police are investigating and would like to speak with him regarding the circumstances once he is able to communicate. Important Contacts Susana Briseno - [phone] Sloan Briseno - [phone] Charlene Finn - [phone] . Prognosis Patient suffered an extensive head injury requiring right frontal manas hole with placement of ventriculostomy catheter. The patient also required intubation , mechanical ventilation, with subsequent tracheostomy. PT/OT have been optimizing the patient's therapy and he is now able to ambulate in the hallway. Discharge planning is in process and he should be discharged with home health some time next week. He will likely continue to have sequelae of severe head trauma requiring extensive rehabilitation. Code Status: Full Code Plan PLAN: Legal decision maker: He has 3 daughters, Sloan Briseno, Charlene Briseno and Susana Briseno Goals: Aggressive CODE STATUS: Full code SYMPTOMS: * Pain -Currently receiving fentanyl patch 25mcg q 72 hours. Patient is currently not showing any signs of pain at this time. He will require frequent nursing assessments to evaluate changes in posture, countenance for possible pain. No recommendations at this time. * Dyspnea -patient stable on room air. Decannulated, trachea healing. Summary: This is a 61-year-old male status post head trauma now extubated to room air. Due to his severe head trauma that he has some memory impairment as well as weakness from the injury and from prolonged hospitalization. While he would likely benefit from therapy, he has no payor source for rehabilitation. As he is the caregiver for his mother with Alzheimer's, family does not feel that he can go home. Case management following, placement will likely be an issue. Palliative care will continue to follow the patient during hospital course as condition evolves, to assist patient/decision-maker with understanding of their medical conditions, weighing benefits/burdens of treatment options, for clarification of goals of treatment. Additionally will assist with any symptoms of palliative concern (Norma Goodrich) Attestation To help prompt me to consider important information that might be impacting today's encounter and assessment, information from prior notes written by myself or my colleagues may have been "brought forward" into today's note. My signature on this note, however, is an attestation that I personally performed the exam, history, and/or decision-making noted today, and, unless otherwise indicated, the interactions with patient, family, and staff as well as the review of records all occurred today. I also attest that the listed assessment and stated plan reflect my best clinical judgment today based on the combination of historical information, prior notes, and today's exam/ interactions. When time spent is documented, it refers only to time spent today by the signer, or if indicated, combined time spent today by collaborating physician/nurse practitioner. (Norma Goodrich) Collaborating MD Comments Chart reviewed. Case discussed with palliative care INDUSTRIAL PSYCHOLOGY PROFESSOR. Above note reviewed and I concur. . (Per Jane MD) Norma Goodrich Dec 14, 2016 17:19 Per Jane MD Dec 17, 2016 17:13
--- NOTE | 2016-12-14 17:19 | HHI.HCPN ---
Reason for visit a. To assist with evaluation and management of symptoms including: Pain, dyspnea b. To assist medical decision maker(s) with: better understanding of current medical conditions; weighing benefits/burdens of medical treatment options; making medical treatment decisions. (Norma Goodrich) Subjective/Interval History This is a 61 year old male brought to [place] as a trauma alert under [facility] [address] 11/13/16, after being found down at home by family with an obvious scalp hematoma to the posterior part of his head, unconscious. He was emergently intubated in the ED and underwent left suboccipital craniectomy with evacuation of cerebellar hemorrhage and placement of a ventriculostomy catheter via a right frontal manas hole. Extubated, decannulated, sitting up eating. Speech clear. Shows some memory impairment but does have some recall with cueing. Does not recall how he got into the hospital, does not remember how he got the head trauma. Does recall that he is the caregiver for his mother, he has 3 daughters, that he speaks several languages and was born in [place]. He is cleared for discharge pending placement. His daughters want him evaluated at [facility] and state he cannot come home due to family dynamics. His mother has Alzheimer's and he has been the caregiver. Without payor source SNF placement is difficult, and family is refusing SNF. Case management following. . (Norma Goodrich) Advance Directives Living Will: Never completed Health Care Surrogate: Never completed Durable Power of Catering Truck Driver: Never completed (Norma Goodrich) Objective Vital Signs Date Time Temp Pulse Resp B/P (MAP) Pulse Ox O2 Delivery O2 Flow Rate FiO2 12/14/16 16:00 97.8 80 16 116/69 (85) 99 12/14/16 12:00 97.3 91 16 110/76 (87) 99 12/14/16 08:00 98.1 69 18 124/77 (93) 98 12/14/16 00:00 97.3 101 18 180/100 (126) 94 12/13/16 23:58 97.2 76 17 120/71 (87) 98 12/13/16 20:00 97.6 81 17 123/77 (92) 98 Intake & Output 12/14/16 12/14/16 07:00 19:00 Intake Total 240 ml Balance 240 ml Intake Oral 240 ml # Voids 2 Physical Exam CONSTITUTIONAL/GENERAL: This is a thin middle-aged male, speech clear, slightly halting. TUBES/LINES/DRAINS: PIV x 1 CARDIOVASCULAR: Regular rate and rhythm without murmurs, gallops, or rubs. Peripheral pulses symmetric. RESPIRATORY/CHEST: Symmetric, unlabored respirations. Breath sounds clear to auscultation. On room air. GASTROINTESTINAL: Abdomen, flat, only light palpation secondary to tenderness. Positive bowel sounds present. J-tube clamped. Abdominal binder in place. GENITOURINARY: Without palpable bladder distension. MUSCULOSKELETAL: Extremities without clubbing, cyanosis, or edema. No mottling or clubbing. NEUROLOGICAL: Awake, alert, oriented to self. Impaired memory and recall PSYCHIATRIC: Calm, pleasant. . (Norma Goodrich) Diagnostic Tests Laboratory Date/Time Source Procedure Growth Status 11/24/16 06:00 Blood Peripheral Aerobic Blood Culture - Final NO GROWTH IN 5 DAYS Complete 11/24/16 06:00 Blood Peripheral Anaerobic Blood Culture - Final NO GROWTH IN 5 DAYS Complete 11/13/16 14:31 Cerebral Spinal Fluid Shunt Fluid Fungal Smear - Final NO FUNGAL ELEMENTS SEEN. Complete 11/13/16 14:31 Cerebral Spinal Fluid Shunt Fluid Fungal Culture - Final NO GROWTH IN 4 WEEKS Complete 11/23/16 18:00 Sputum Endotracheal Gram Stain - Final Complete 11/23/16 18:00 Sputum Culture - Final Escherichia Coli Complete 11/23/16 18:00 Urine Catheterized Urine Urine Culture - Final NO GROWTH IN 48 HOURS. Complete (Norma Goodrich) Imaging Last Impressions Chest X-Ray 12/06/16 0600 Signed Impressions: Service Date/Time: Tuesday, December 06, 2016 05:23 - CONCLUSION: Left base consolidation or atelectasis. Fabien Menjivar MD Consultation 12/03/16 0000 Signed Impressions: Service Date/Time: November 00:00 - CONCLUSION: Insufficient ascitic volume for safe paracentesis. Andrea Glez Jr., MD Abdomen/Pelvis CT 12/02/16 0000 Signed Impressions: Service Date/Time: Friday, December 02, 2016 18:58 - CONCLUSION: 1. Status post placement of a gastrostomy tube with a feeding tube in the small bowel. 2. There is a small amount of ascites in the upper abdomen. 3. Bilateral pleural effusions with bibasilar atelectasis. 4. Anasarca. 5. Stable hepatic cysts Haris Lockwood MD Abdomen X-Ray 12/01/16 0000 Signed Impressions: Service Date/Time: Thursday, December 01, 2016 08:13 - CONCLUSION: 1. No evidence of obstruction. Kam Menezes MD Head CT 11/28/16 0800 Signed Impressions: Service Date/Time: Monday, November 28, 2016 08:34 - CONCLUSION: 1. The patient's subdural hemorrhage and intraparenchymal hemorrhage all appear to be undergoing the expected evolution. There is significant decrease in the amount of cerebral edema. 2. The ventricles are normal in size. The ventriculostomy is in good position. Chuy Fitzpatrick MD Maxillofacial CT 11/13/16 1316 Signed Impressions: Service Date/Time: Sunday, November 13, 2016 13:11 - CONCLUSION: Air-fluid level with admixture of air and fluid in the left sphenoid sinus compartment. Otherwise negative. Acute fracture is not identified. Yariel Odell MD Thoracic Spine CT 11/13/16 1311 Signed Impressions: Service Date/Time: Sunday, November 13, 2016 13:15 - CONCLUSION: No fracture or subluxation. Bobby Rasmussen MD Lumbar Spine CT 11/13/16 1311 Signed Impressions: Service Date/Time: Sunday, November 13, 2016 13:15 - CONCLUSION: 1. No acute fracture. Spinal canal and neural foramen appear to be adequate throughout. 2. Dextroscoliosis of the lumbar spine with mild associated degenerative changes 3. Diverticular disease of the sigmoid without diverticulitis Aftab Cramer MD Chest CT 11/13/16 1311 Signed Impressions: Service Date/Time: Sunday, November 13, 2016 13:17 - CONCLUSION: 1. Negative CT scan of the thorax. Chuy Fitzpatrick MD Cervical Spine CT 11/13/16 1311 Signed Impressions: Service Date/Time: Sunday, November 13, 2016 13:13 - CONCLUSION: 1. No acute fracture the cervical spine identified. There are degenerative changes as above. 2. There is fracture of the right side of the occipital bone. There is subdural hematoma in the posterior fossa on the right and intraparenchymal hemorrhage within the left cerebellar hemisphere. This was assessed by CT imaging of the brain. Chuy Fitzpatrick MD Procedures 11/30/16- Ventriculostomy drain removed 11/25/16 - J-tube placed via open approach. 11/24/16 - tracheostomy placement 11/24/16 - attempted esophageal PEG placement, failed. 11/13/16 - intubation 11/13/16 - right frontal manas hole with placement of ventriculostomy catheter 11/13/16- left suboccipital craniectomy, evacuation of cerebellar hemorrhage. . (Norma Goodrich) Assessment and Plan Disease Oriented Problem List: (1) Status post craniectomy (2) Traumatic brain injury (3) Skull fractures (4) Intracranial hemorrhage (5) Major neurocognitive disorder as late effect of traumatic brain injury without behavioral disturbance Symptom Scale: (1) Dyspnea and respiratory abnormalities 0-10 Scale: Unable to quantify (2) Pain, generalized 0-10 Scale: Unable to quantify Pertinent Non-Medical Issues Psychosocial:He was born in [facility] and lived in many countries around the world, moving to the [facility] in 1997 to settle in [place]. 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 He currently works at [employer]. He speaks multiple languages to include Wolof, Slovak, Divehi , Colombian and Gibraltarian. He lives with his mother to provide care for her, as she has Alzheimer's dementia. Spiritual: He was raised Zoroastrian and would appreciate [facility] visits. Legal: He has 3 daughters who will serve as joint healthcare proxies. His mother has Alzheimer's dementia and is unable to participate in decision-making. Ethical issues impacting care: Circumstances surrounding patient's injury are not known, however, the [place] police are investigating and would like to speak with him regarding the circumstances once he is able to communicate. Important Contacts Susana Briseno - [phone] Sloan Briseno - [phone] Charlene Finn - [phone] . Prognosis Patient suffered an extensive head injury requiring right frontal manas hole with placement of ventriculostomy catheter. The patient also required intubation , mechanical ventilation, with subsequent tracheostomy. PT/OT have been optimizing the patient's therapy and he is now able to ambulate in the hallway. Discharge planning is in process and he should be discharged with home health some time next week. He will likely continue to have sequelae of severe head trauma requiring extensive rehabilitation. Code Status: Full Code Plan PLAN: Legal decision maker: He has 3 daughters, Sloan Briseno, Charlene Briseno and Susana Briseno Goals: Aggressive CODE STATUS: Full code SYMPTOMS: * Pain -Currently receiving fentanyl patch 25mcg q 72 hours. Patient is currently not showing any signs of pain at this time. He will require frequent nursing assessments to evaluate changes in posture, countenance for possible pain. No recommendations at this time. * Dyspnea -patient stable on room air. Decannulated, trachea healing. Summary: This is a 61-year-old male status post head trauma now extubated to room air. Due to his severe head trauma that he has some memory impairment as well as weakness from the injury and from prolonged hospitalization. While he would likely benefit from therapy, he has no payor source for rehabilitation. As he is the caregiver for his mother with Alzheimer's, family does not feel that he can go home. Case management following, placement will likely be an issue. Palliative care will continue to follow the patient during hospital course as condition evolves, to assist patient/decision-maker with understanding of their medical conditions, weighing benefits/burdens of treatment options, for clarification of goals of treatment. Additionally will assist with any symptoms of palliative concern (Norma Goodrich) Attestation To help prompt me to consider important information that might be impacting today's encounter and assessment, information from prior notes written by myself or my colleagues may have been "brought forward" into today's note. My signature on this note, however, is an attestation that I personally performed the exam, history, and/or decision-making noted today, and, unless otherwise indicated, the interactions with patient, family, and staff as well as the review of records all occurred today. I also attest that the listed assessment and stated plan reflect my best clinical judgment today based on the combination of historical information, prior notes, and today's exam/ interactions. When time spent is documented, it refers only to time spent today by the signer, or if indicated, combined time spent today by collaborating physician/nurse practitioner. (Norma Goodrich) Collaborating MD Comments Chart reviewed. Case discussed with palliative care TEXTILE CONVERSION MANAGER. Above note reviewed and I concur. . (Per Jane MD) Norma Goodrich Dec 14, 2016 17:19 Per Jane MD Dec 17, 2016 17:13
--- NOTE | 2016-12-14 17:19 | HHI.HCPN ---
Reason for visit a. To assist with evaluation and management of symptoms including: Pain, dyspnea b. To assist medical decision maker(s) with: better understanding of current medical conditions; weighing benefits/burdens of medical treatment options; making medical treatment decisions. (Norma Goodrich) Subjective/Interval History This is a 61 year old male brought to [facility] as a trauma alert under Trino Conn 167 11/13/16, after being found down at home by family with an obvious scalp hematoma to the posterior part of his head, unconscious. He was emergently intubated in the ED and underwent left suboccipital craniectomy with evacuation of cerebellar hemorrhage and placement of a ventriculostomy catheter via a right frontal manas hole. Extubated, decannulated, sitting up eating. Speech clear. Shows some memory impairment but does have some recall with cueing. Does not recall how he got into the hospital, does not remember how he got the head trauma. Does recall that he is the caregiver for his mother, he has 3 daughters, that he speaks several languages and was born in [place]. He is cleared for discharge pending placement. His daughters want him evaluated at [facility] and state he cannot come home due to family dynamics. His mother has Alzheimer's and he has been the caregiver. Without payor source SNF placement is difficult, and family is refusing SNF. Case management following. . (Norma Goodrich) Advance Directives Living Will: Never completed Health Care Surrogate: Never completed Durable Power of Neck Fitter: Never completed (Norma Goodrich) Objective Vital Signs Date Time Temp Pulse Resp B/P (MAP) Pulse Ox O2 Delivery O2 Flow Rate FiO2 12/14/16 16:00 97.8 80 16 116/69 (85) 99 12/14/16 12:00 97.3 91 16 110/76 (87) 99 12/14/16 08:00 98.1 69 18 124/77 (93) 98 12/14/16 00:00 97.3 101 18 180/100 (126) 94 12/13/16 23:58 97.2 76 17 120/71 (87) 98 12/13/16 20:00 97.6 81 17 123/77 (92) 98 Intake & Output 12/14/16 12/14/16 07:00 19:00 Intake Total 240 ml Balance 240 ml Intake Oral 240 ml # Voids 2 Physical Exam CONSTITUTIONAL/GENERAL: This is a thin middle-aged male, speech clear, slightly halting. TUBES/LINES/DRAINS: PIV x 1 CARDIOVASCULAR: Regular rate and rhythm without murmurs, gallops, or rubs. Peripheral pulses symmetric. RESPIRATORY/CHEST: Symmetric, unlabored respirations. Breath sounds clear to auscultation. On room air. GASTROINTESTINAL: Abdomen, flat, only light palpation secondary to tenderness. Positive bowel sounds present. J-tube clamped. Abdominal binder in place. GENITOURINARY: Without palpable bladder distension. MUSCULOSKELETAL: Extremities without clubbing, cyanosis, or edema. No mottling or clubbing. NEUROLOGICAL: Awake, alert, oriented to self. Impaired memory and recall PSYCHIATRIC: Calm, pleasant. . (Norma Goodrich) Diagnostic Tests Laboratory Date/Time Source Procedure Growth Status 11/24/16 06:00 Blood Peripheral Aerobic Blood Culture - Final NO GROWTH IN 5 DAYS Complete 11/24/16 06:00 Blood Peripheral Anaerobic Blood Culture - Final NO GROWTH IN 5 DAYS Complete 11/13/16 14:31 Cerebral Spinal Fluid Shunt Fluid Fungal Smear - Final NO FUNGAL ELEMENTS SEEN. Complete 11/13/16 14:31 Cerebral Spinal Fluid Shunt Fluid Fungal Culture - Final NO GROWTH IN 4 WEEKS Complete 11/23/16 18:00 Sputum Endotracheal Gram Stain - Final Complete 11/23/16 18:00 Sputum Culture - Final Escherichia Coli Complete 11/23/16 18:00 Urine Catheterized Urine Urine Culture - Final NO GROWTH IN 48 HOURS. Complete (Norma Goodrich) Imaging Last Impressions Chest X-Ray 12/06/16 0600 Signed Impressions: Service Date/Time: Tuesday, December 06, 2016 05:23 - CONCLUSION: Left base consolidation or atelectasis. Fabien Menjivar MD Consultation 12/03/16 0000 Signed Impressions: Service Date/Time: November 00:00 - CONCLUSION: Insufficient ascitic volume for safe paracentesis. Andrea Glez Jr., MD Abdomen/Pelvis CT 12/02/16 0000 Signed Impressions: Service Date/Time: Friday, December 02, 2016 18:58 - CONCLUSION: 1. Status post placement of a gastrostomy tube with a feeding tube in the small bowel. 2. There is a small amount of ascites in the upper abdomen. 3. Bilateral pleural effusions with bibasilar atelectasis. 4. Anasarca. 5. Stable hepatic cysts Haris Lockwood MD Abdomen X-Ray 12/01/16 0000 Signed Impressions: Service Date/Time: Thursday, December 01, 2016 08:13 - CONCLUSION: 1. No evidence of obstruction. Kam Menezes MD Head CT 11/28/16 0800 Signed Impressions: Service Date/Time: Monday, November 28, 2016 08:34 - CONCLUSION: 1. The patient's subdural hemorrhage and intraparenchymal hemorrhage all appear to be undergoing the expected evolution. There is significant decrease in the amount of cerebral edema. 2. The ventricles are normal in size. The ventriculostomy is in good position. Chuy Fitzpatrick MD Maxillofacial CT 11/13/16 1316 Signed Impressions: Service Date/Time: Sunday, November 13, 2016 13:11 - CONCLUSION: Air-fluid level with admixture of air and fluid in the left sphenoid sinus compartment. Otherwise negative. Acute fracture is not identified. Yariel Odell MD Thoracic Spine CT 11/13/16 1311 Signed Impressions: Service Date/Time: Sunday, November 13, 2016 13:15 - CONCLUSION: No fracture or subluxation. Bobby Rasmussen MD Lumbar Spine CT 11/13/16 1311 Signed Impressions: Service Date/Time: Sunday, November 13, 2016 13:15 - CONCLUSION: 1. No acute fracture. Spinal canal and neural foramen appear to be adequate throughout. 2. Dextroscoliosis of the lumbar spine with mild associated degenerative changes 3. Diverticular disease of the sigmoid without diverticulitis Aftab Cramer MD Chest CT 11/13/16 1311 Signed Impressions: Service Date/Time: Sunday, November 13, 2016 13:17 - CONCLUSION: 1. Negative CT scan of the thorax. Chuy Fitzpatrick MD Cervical Spine CT 11/13/16 1311 Signed Impressions: Service Date/Time: Sunday, November 13, 2016 13:13 - CONCLUSION: 1. No acute fracture the cervical spine identified. There are degenerative changes as above. 2. There is fracture of the right side of the occipital bone. There is subdural hematoma in the posterior fossa on the right and intraparenchymal hemorrhage within the left cerebellar hemisphere. This was assessed by CT imaging of the brain. Chuy Fitzpatrick MD Procedures 11/30/16- Ventriculostomy drain removed 11/25/16 - J-tube placed via open approach. 11/24/16 - tracheostomy placement 11/24/16 - attempted esophageal PEG placement, failed. 11/13/16 - intubation 11/13/16 - right frontal manas hole with placement of ventriculostomy catheter 11/13/16- left suboccipital craniectomy, evacuation of cerebellar hemorrhage. . 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 He currently works at [employer]. He speaks multiple languages to include Croatian, [place]ican, Latvian , [place] and Qatari. He lives with his mother to provide care for her, as she has Alzheimer's dementia. Spiritual: He was raised [employer] and would appreciate [facility] visits. Legal: He has 3 daughters who will serve as joint healthcare proxies. His mother has Alzheimer's dementia and is unable to participate in decision-making. Ethical issues impacting care: Circumstances surrounding patient's injury are not known, however, the [place] police are investigating and would like to speak with him regarding the circumstances once he is able to communicate. Important Contacts Susana Briseno - [phone] Sloan Briseno - [phone] Charlene Finn - [phone] . Prognosis Patient suffered an extensive head injury requiring right frontal manas hole with placement of ventriculostomy catheter. The patient also required intubation , mechanical ventilation, with subsequent tracheostomy. PT/OT have been optimizing the patient's therapy and he is now able to ambulate in the hallway. Discharge planning is in process and he should be discharged with home health some time next week. He will likely continue to have sequelae of severe head trauma requiring extensive rehabilitation. Code Status: Full Code Plan PLAN: Legal decision maker: He has 3 daughters, Sloan Briseno, Charlene Briseno and Susana Briseno Goals: Aggressive CODE STATUS: Full code SYMPTOMS: * Pain -Currently receiving fentanyl patch 25mcg q 72 hours. Patient is currently not showing any signs of pain at this time. He will require frequent nursing assessments to evaluate changes in posture, countenance for possible pain. No recommendations at this time. * Dyspnea -patient stable on room air. Decannulated, trachea healing. Summary: This is a 61-year-old male status post head trauma now extubated to room air. Due to his severe head trauma that he has some memory impairment as well as weakness from the injury and from prolonged hospitalization. While he would likely benefit from therapy, he has no payor source for rehabilitation. As he is the caregiver for his mother with Alzheimer's, family does not feel that he can go home. Case management following, placement will likely be an issue. Palliative care will continue to follow the patient during hospital course as condition evolves, to assist patient/decision-maker with understanding of their medical conditions, weighing benefits/burdens of treatment options, for clarification of goals of treatment. Additionally will assist with any symptoms of palliative concern (Norma Goodrich) Attestation To help prompt me to consider important information that might be impacting today's encounter and assessment, information from prior notes written by myself or my colleagues may have been "brought forward" into today's note. My signature on this note, however, is an attestation that I personally performed the exam, history, and/or decision-making noted today, and, unless otherwise indicated, the interactions with patient, family, and staff as well as the review of records all occurred today. I also attest that the listed assessment and stated plan reflect my best clinical judgment today based on the combination of historical information, prior notes, and today's exam/ interactions. When time spent is documented, it refers only to time spent today by the signer, or if indicated, combined time spent today by collaborating physician/nurse practitioner. (Norma Goodrich) Collaborating MD Comments Chart reviewed. Case discussed with palliative care GROUP DIRECTOR EXPERIENCE. Above note reviewed and I concur. . (Per Jane MD) Norma Goodrich Dec 14, 2016 17:19 Per Jane MD Dec 17, 2016 17:13
[2016-12-14 20:32] VITALS: BP 112/72; PULSE 78; RESP 16; TEMP 97.8; O2SAT 97
[2016-12-14] MEDS: traZODone HCL 50 MG TAB PO SCH (21:50)
[2016-12-14] MEDS: MAGNESIUM HYDROXIDE SUSP 30 ML CUP PO SCH (21:50)
[2016-12-15] VITALS (7 sets, daily range): BP systolic 96–129; BP diastolic 60–72; PULSE 66–92; RESP 16–18; TEMP 96.2–98.1; O2SAT 95–100
[2016-12-15] MEDS: SODIUM CHLORIDE 1 GRAM TAB PO SCH ×4 (02:25→21:24)
--- NOTE | 2016-12-15 08:30 | HHI.PR ---
Neuropsych Emotional Emotional: UnabletoAssess: Emotional, Anxious/Fearful, Depressed/Sad, Hostile/ Resentful, Irritable/Angry/Frustrate, Labile, Constricted/Blunted Behavior Behavior: Intact: Cooperative w/ Treatment, Mild: Impulsive/Agitated Cognitive Cognitive: Severe: Cognitive, Attention/Concentration, Confused/Orientation, Insight/Awareness, Judgement/Problem-Solving, Memory Psychosocial Psychosocial: Moderate: Psychosocial, Family/Other Adjustment, Realistic Expectation, Unable to Asses: Self-Esteem/Confidence Progress Notes/Response to Tx Contents of Sessions: Adjustment, Level of Consciousness Premorbid psychological status Premorbid Cognitive, Emotional and Behavioral Status: Stable. The patient is originally from [facility] and has a solid work history prior to this injury. The patient has no psychiatric difficulties, as described above. Substance abuse history is unremarkable. Behavioral Reactions of Patient and Family/Support System: Stable. The patient s family is experiencing ongoing issues of adjustment given the nature of the injury, and this aspect of recovery will require ongoing monitoring. Emotional/Behavioral Status of Patient and Family/Support System: Stable. Pertinent issues, if appropriate to this patients clinical care, are described in detail above. Maximizing acute care outcome It is recommended that the patient be monitored for emergent behavioral impulsivity as the medical condition evolves. This patients neuropathological challenges may limit their rehabilitation potential going forward, and these challenges will require specialized therapeutic skills to maximize outcome. Additionally, the patients family is experiencing ongoing issues of adjustment given the traumatic nature of the injury, and they will need ongoing psychological assistance. Anticipated Problems Ongoing areas of concern will include behavioral impulsivity, lack of insight and judgment, which is expected to improve with time and treatment. Presently , the patient remains intubated and sedated. Treatment Plan This clinician will continue to follow with you throughout the course of this patients acute care treatment, and I will be available to meet with the patient s family/support system to facilitate their understanding and the ongoing care of their family member. The goals of neuropsychological intervention shall be both educational and supportive to the family/support system as is deemed clinically appropriate. [facility] Level: V:Confused-non agitated Impression This is a 61 year old man s/p TBI 2T probable fall. Diagnosis: (1) Major neurocognitive disorder as late effect of traumatic brain injury without behavioral disturbance Status: Acute Progress Note Narrative Ongoing follow-up of patient seen during daily trauma rounds. This is day 31 post injury. The patient is neurobehaviorally stable at a Ranch[place] V, non- agitated but confused, but following very basic commands. Noteworthy today is that he appeared much more neurocognitively improved, and in fact is cleared for discharge, but family reportedly cannot care for him at home. I talked with both daughters today, correctional casework specialist and CIR Liaison Deena Lynn about the possibility of his coming to [facility] to facilitate his return of functioning. I discussed with both daughters the need for a solid discharge plan which means that the family must take him home and care for him. They understood, and I told them to reach out to me going forward by phone or email if they have additional questions concerning brain injury recovery. He remains on Valproic Acid 250 BID and Trazodone 50 HS for behavioral control, and sleep maintenance respectively. I will continue to follow. Johan Pierson PhD Dec 15, 2016 8:30 am
--- NOTE | 2016-12-15 08:30 | HHI.PR ---
Neuropsych Emotional Emotional: UnabletoAssess: Emotional, Anxious/Fearful, Depressed/Sad, Hostile/ Resentful, Irritable/Angry/Frustrate, Labile, Constricted/Blunted Behavior Behavior: Intact: Cooperative w/ Treatment, Mild: Impulsive/Agitated Cognitive Cognitive: Severe: Cognitive, Attention/Concentration, Confused/Orientation, Insight/Awareness, Judgement/Problem-Solving, Memory Psychosocial Psychosocial: Moderate: Psychosocial, Family/Other Adjustment, Realistic Expectation, Unable to Asses: Self-Esteem/Confidence Progress Notes/Response to Tx Contents of Sessions: Adjustment, Level of Consciousness Premorbid psychological status Premorbid Cognitive, Emotional and Behavioral Status: Stable. The patient is originally from [facility] and has a solid work history prior to this injury. The patient has no psychiatric difficulties, as described above. Substance abuse history is unremarkable. Behavioral Reactions of Patient and Family/Support System: Stable. The patient s family is experiencing ongoing issues of adjustment given the nature of the injury, and this aspect of recovery will require ongoing monitoring. Emotional/Behavioral Status of Patient and Family/Support System: Stable. Pertinent issues, if appropriate to this patients clinical care, are described in detail above. Maximizing acute care outcome It is recommended that the patient be monitored for emergent behavioral impulsivity as the medical condition evolves. This patients neuropathological challenges may limit their rehabilitation potential going forward, and these challenges will require specialized therapeutic skills to maximize outcome. Additionally, the patients family is experiencing ongoing issues of adjustment given the traumatic nature of the injury, and they will need ongoing psychological assistance. Anticipated Problems Ongoing areas of concern will include behavioral impulsivity, lack of insight and judgment, which is expected to improve with time and treatment. Presently , the patient remains intubated and sedated. Treatment Plan This clinician will continue to follow with you throughout the course of this patients acute care treatment, and I will be available to meet with the patient s family/support system to facilitate their understanding and the ongoing care of their family member. The goals of neuropsychological intervention shall be both educational and supportive to the family/support system as is deemed clinically appropriate. [facility] Level: V:Confused-non agitated Impression This is a 61 year old man s/p TBI 2T probable fall. Diagnosis: (1) Major neurocognitive disorder as late effect of traumatic brain injury without behavioral disturbance Status: Acute Progress Note Narrative Ongoing follow-up of patient seen during daily trauma rounds. This is day 31 post injury. The patient is neurobehaviorally stable at a [place] V, non- agitated but confused, but following very basic commands. Noteworthy today is that he appeared much more neurocognitively improved, and in fact is cleared for discharge, but family reportedly cannot care for him at home. I talked with both daughters today, family independence case manager and CIR Liaison Deena Lynn about the possibility of his coming to [facility] to facilitate his return of functioning. I discussed with both daughters the need for a solid discharge plan which means that the family must take him home and care for him. They understood, and I told them to reach out to me going forward by phone or email if they have additional questions concerning brain injury recovery. He remains on Valproic Acid 250 BID and Trazodone 50 HS for behavioral control, and sleep maintenance respectively. I will continue to follow. Johan Pierson PhD Dec 15, 2016 8:30 am
[2016-12-15] MEDS: MEGESTROL ACETATE SUSP 400 MG/10 ML CUP PO SCH ×4 (09:53→21:24)
[2016-12-15] MEDS: ENOXAPARIN SODIUM 30 MG/0.3 ML SYRINGE SQ SCH ×2 (09:54→21:24)
[2016-12-15] MEDS: FAMOTIDINE 20 MG TAB PO SCH ×2 (09:55→21:24)
[2016-12-15] MEDS: FUROSEMIDE 40 MG/5 ML UNIT DOSE CUP PO SCH (09:55)
[2016-12-15] MEDS: METOPROLOL TARTRATE 25 MG TAB PO SCH ×2 (09:56→21:24)
[2016-12-15] MEDS: POTASSIUM CHLORIDE 25 MEQ EFFERVESCENT TAB NG SCH (09:56)
[2016-12-15] MEDS: VALPROIC ACID SYRUP 250 MG/5 ML UDC PO SCH ×3 (09:56→17:45)
[2016-12-15] MEDS: hydrALAZINE HCL 25 MG TAB PO SCH ×2 (09:56→21:24)
--- NOTE | 2016-12-15 13:39 | HHI.PR ---
Subjective Subjective Notes No acute changes Eating well, calorie count continues Objective Vitals/I&O Vital Signs Date Time Temp Pulse Resp B/P (MAP) Pulse Ox O2 Delivery O2 Flow Rate FiO2 12/15/16 11:30 96.2 88 117/72 (87) 99 12/15/16 07:30 16 Labs Date/Time Source Procedure Growth Status 11/24/16 06:00 Blood Peripheral Aerobic Blood Culture - Final NO GROWTH IN 5 DAYS Complete 11/24/16 06:00 Blood Peripheral Anaerobic Blood Culture - Final NO GROWTH IN 5 DAYS Complete 11/13/16 14:31 Cerebral Spinal Fluid Shunt Fluid Fungal Smear - Final NO FUNGAL ELEMENTS SEEN. Complete 11/13/16 14:31 Cerebral Spinal Fluid Shunt Fluid Fungal Culture - Final NO GROWTH IN 4 WEEKS Complete 11/23/16 18:00 Sputum Endotracheal Gram Stain - Final Complete 11/23/16 18:00 Sputum Culture - Final Escherichia Coli Complete 11/23/16 18:00 Urine Catheterized Urine Urine Culture - Final NO GROWTH IN 48 HOURS. Complete Radiology Last Impressions Chest X-Ray 12/06/16 0600 Signed Impressions: Service Date/Time: Tuesday, December 06, 2016 05:23 - CONCLUSION: Left base consolidation or atelectasis. Fabien Menjivar MD Consultation 12/03/16 0000 Signed Impressions: Service Date/Time: November 00:00 - CONCLUSION: Insufficient ascitic volume for safe paracentesis. Andrea Glez Jr., MD Abdomen/Pelvis CT 12/02/16 0000 Signed Impressions: Service Date/Time: Friday, December 02, 2016 18:58 - CONCLUSION: 1. Status post placement of a gastrostomy tube with a feeding tube in the small bowel. 2. There is a small amount of ascites in the upper abdomen. 3. Bilateral pleural effusions with bibasilar atelectasis. 4. Anasarca. 5. Stable hepatic cysts Haris Lockwood MD Abdomen X-Ray 12/01/16 0000 Signed Impressions: Service Date/Time: Thursday, December 01, 2016 08:13 - CONCLUSION: 1. No evidence of obstruction. Kam Menezes MD Head CT 11/28/16 0800 Signed Impressions: Service Date/Time: Monday, November 28, 2016 08:34 - CONCLUSION: 1. The patient's subdural hemorrhage and intraparenchymal hemorrhage all appear to be undergoing the expected evolution. There is significant decrease in the amount of cerebral edema. 2. The ventricles are normal in size. The ventriculostomy is in good position. Chuy Fitzpatrick MD Maxillofacial CT 11/13/16 1316 Signed Impressions: Service Date/Time: Sunday, November 13, 2016 13:11 - CONCLUSION: Air-fluid level with admixture of air and fluid in the left sphenoid sinus compartment. Otherwise negative. Acute fracture is not identified. Yariel Odell MD Thoracic Spine CT 11/13/161310 Signed Impressions: Service Date/Time: Sunday, November 13, 2016 13:15 - CONCLUSION: No fracture or subluxation. Bobby Rasmussen MD Lumbar Spine CT 11/13/161310 Signed Impressions: Service Date/Time: Sunday, November 13, 2016 13:15 - CONCLUSION: 1. No acute fracture. Spinal canal and neural foramen appear to be adequate throughout. 2. Dextroscoliosis of the lumbar spine with mild associated degenerative changes 3. Diverticular disease of the sigmoid without diverticulitis Aftab Cramer MD Chest CT 11/13/161310 Signed Impressions: Service Date/Time: Sunday, November 13, 2016 13:17 - CONCLUSION: 1. Negative CT scan of the thorax. Chuy Fitzpatrick MD Cervical Spine CT 11/13/161310 Signed Impressions: Service Date/Time: Sunday, November 13, 2016 13:13 - CONCLUSION: 1. No acute fracture the cervical spine identified. There are degenerative changes as above. 2. There is fracture of the right side of the occipital bone. There is subdural hematoma in the posterior fossa on the right and intraparenchymal hemorrhage within the left cerebellar hemisphere. This was assessed by CT imaging of the brain. Chuy Fitzpatrick MD Narrative Exam GENERAL: 61-year-old well-nourished, well developed male OOB in chair. SKIN: Warm and dry. HEAD:Normocephalic. EYES: PERRL. ENT: No nasal bleeding or discharge. Mucous membranes pink and moist. NECK: Trachea midline. No JVD. CARDIOVASCULAR: Regular rate and rhythm. RESPIRATORY: No accessory muscle use. Lungs clear to auscultation. Breath sounds equal bilaterally. GASTROINTESTINAL: Abdomen soft, non-tender, nondistended. + BS. MUSCULOSKELETAL: Extremities without cyanosis, or edema. MAEW. + perfused NEUROLOGICAL: Awake and alert. Speech normal. 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 disturbance ICD Codes: S06.9X9S - Unspecified intracranial injury with loss of consciousness of unspecified duration, sequela; F02.80 - Dementia in other diseases classified elsewhere without behavioral disturbance Status: Acute (4) Dyspnea and respiratory abnormalities ICD Codes: R06.00 - Dyspnea, unspecified; R06.89 - Other abnormalities of breathing Status: Resolved (5) Pain, generalized ICD Codes: R52 - Pain, unspecified Status: Acute (6) Subdural hemorrhage ICD Codes: I62.00 - Nontraumatic subdural hemorrhage, unspecified Status: Acute (7) Brain contusion ICD Codes: S06.2X9A - Diffuse traumatic brain injury with loss of consciousness of unspecified duration, initial encounter Status: Acute (8) Skull fractures ICD Codes: S02.91XA - Unspecified fracture of skull, initial encounter for closed fracture Status: Acute (9) Status post craniectomy ICD Codes: Z98.890 - Other specified postprocedural states Status: Acute Assessment and Plan [place]: Found down at home with obvious scalp lac and raccoon eyes. GCS 5-6. INJURIES: Skull fx SDH (temporal and parietal) LEFT cerebral contusions (w /compression of 4th ventricle) RIGHT temporal contusion LEFT parietal lobe contusion 11/13: Intubated in the ED 11/13: Suboccipital craniectomy with ventric placement 11/24: REGULATORY ASSOCIATE placement 11/25: Open jejunostomy placement 11/28: Ventriculostomy removed 12/07: Downsized REGULATORY ASSOCIATE to #6 12/08: Decannulated self 12/12: Pulled out own J-tube Diet: Soft diet, Enlive supplements. ST following. Calorie count Pulm: RA. Nebs. Pain: Fentanyl patch. Percocet. Activity: OOB. PT x 7 days and OT ordered. Ambulating with PT. PT increased to BID x 7 days GI: Pepcid Bowel: Senna. MOM. Bisacodyl [place] PRN. LBM: 12/13 DVT: SCD's. Lovenox 30 BID Skull fx, SDH, LEFT cerebral contusions, RIGHT temporal contusion, LEFT parietal lobe contusion Neurosurgery consulted 11/13: Suboccipital craniectomy with ventric placement 11/28: Ventriculostomy removed Trazodone 50 HS Valproic 250 TID for agitation/restlessness ST cognitive and swallow eval Lovenox OOB QD- PT ordered x 7 days/ week Respiratory failure Supportive care 11/24: REGULATORY ASSOCIATE placement 11/25: Open jejunostomy placement 12/07: Downsized REGULATORY ASSOCIATE to #6 12/07: Downsized REGULATORY ASSOCIATE to #6 12/08: Decannulated self On RA HTN Lopressor 25mg BID Hydralazine 25mg q8 Lasix 20mg QD KCl 20meq QD BP improved Plan of care discussed with RN at bedside. No family present during visit. Case management consulted to assist with discharge planning. Patient has been cleared for discharge, but family cannot care for him at home. Case management assisting to find other options for placement. The exam, history, and the medical decision-making described in the above note were completed with the assistance of the mid-level provider. I reviewed and agree with the findings presented. I attest that I had a [id number] encounter with the patient on the same day, and personally performed and documented my assessment and findings in the medical record. Problem Qualifiers (1) Traumatic brain injury: (2) Brain contusion: Qualified Codes: S06.2X9A - Diffuse traumatic brain injury with loss of consciousness of unspecified duration, initial encounter (3) Skull fractures: Deepa Cobian Dec 15, 2016 13:39 Donavon Alfaro MD Dec 16, 2016 13:48
--- NOTE | 2016-12-15 13:39 | HHI.PR ---
Subjective Subjective Notes No acute changes Eating well, calorie count continues Objective Vitals/I&O Vital Signs Date Time Temp Pulse Resp B/P (MAP) Pulse Ox O2 Delivery O2 Flow Rate FiO2 12/15/16 11:30 96.2 88 117/72 (87) 99 12/15/16 07:30 16 Labs Date/Time Source Procedure Growth Status 11/24/16 06:00 Blood Peripheral Aerobic Blood Culture - Final NO GROWTH IN 5 DAYS Complete 11/24/16 06:00 Blood Peripheral Anaerobic Blood Culture - Final NO GROWTH IN 5 DAYS Complete 11/13/16 14:31 Cerebral Spinal Fluid Shunt Fluid Fungal Smear - Final NO FUNGAL ELEMENTS SEEN. Complete 11/13/16 14:31 Cerebral Spinal Fluid Shunt Fluid Fungal Culture - Final NO GROWTH IN 4 WEEKS Complete 11/23/16 18:00 Sputum Endotracheal Gram Stain - Final Complete 11/23/16 18:00 Sputum Culture - Final Escherichia Coli Complete 11/23/16 18:00 Urine Catheterized Urine Urine Culture - Final NO GROWTH IN 48 HOURS. Complete Radiology Last Impressions Chest X-Ray 12/06/16 0600 Signed Impressions: Service Date/Time: Tuesday, December 06, 2016 05:23 - CONCLUSION: Left base consolidation or atelectasis. Fabien Menjivar MD Consultation 12/03/16 0000 Signed Impressions: Service Date/Time: November 00:00 - CONCLUSION: Insufficient ascitic volume for safe paracentesis. Andrea Glez Jr., MD Abdomen/Pelvis CT 12/02/16 0000 Signed Impressions: Service Date/Time: Friday, December 02, 2016 18:58 - CONCLUSION: 1. Status post placement of a gastrostomy tube with a feeding tube in the small bowel. 2. There is a small amount of ascites in the upper abdomen. 3. Bilateral pleural effusions with bibasilar atelectasis. 4. Anasarca. 5. Stable hepatic cysts Haris Lockwood MD Abdomen X-Ray 12/01/16 0000 Signed Impressions: Service Date/Time: Thursday, December 01, 2016 08:13 - CONCLUSION: 1. No evidence of obstruction. Kam Menezes MD Head CT 11/28/16 0800 Signed Impressions: Service Date/Time: Monday, November 28, 2016 08:34 - CONCLUSION: 1. The patient's subdural hemorrhage and intraparenchymal hemorrhage all appear to be undergoing the expected evolution. There is significant decrease in the amount of cerebral edema. 2. The ventricles are normal in size. The ventriculostomy is in good position. Chuy Fitzpatrick MD Maxillofacial CT 11/13/16 1316 Signed Impressions: Service Date/Time: Sunday, November 13, 2016 13:11 - CONCLUSION: Air-fluid level with admixture of air and fluid in the left sphenoid sinus compartment. Otherwise negative. Acute fracture is not identified. Yariel Odell MD Thoracic Spine CT 11/13/161310 Signed Impressions: Service Date/Time: Sunday, November 13, 2016 13:15 - CONCLUSION: No fracture or subluxation. Bobby Rasmussen MD Lumbar Spine CT 11/13/161310 Signed Impressions: Service Date/Time: Sunday, November 13, 2016 13:15 - CONCLUSION: 1. No acute fracture. Spinal canal and neural foramen appear to be adequate throughout. 2. Dextroscoliosis of the lumbar spine with mild associated degenerative changes 3. Diverticular disease of the sigmoid without diverticulitis Aftab Cramer MD Chest CT 11/13/161310 Signed Impressions: Service Date/Time: Sunday, November 13, 2016 13:17 - CONCLUSION: 1. Negative CT scan of the thorax. Chuy Fitzpatrick MD Cervical Spine CT 11/13/161310 Signed Impressions: Service Date/Time: Sunday, November 13, 2016 13:13 - CONCLUSION: 1. No acute fracture the cervical spine identified. There are degenerative changes as above. 2. There is fracture of the right side of the occipital bone. There is subdural hematoma in the posterior fossa on the right and intraparenchymal hemorrhage within the left cerebellar hemisphere. This was assessed by CT imaging of the brain. Chuy Fitzpatrick MD Narrative Exam GENERAL: 61-year-old well-nourished, well developed male OOB in chair. SKIN: Warm and dry. HEAD:Normocephalic. EYES: PERRL. ENT: No nasal bleeding or discharge. Mucous membranes pink and moist. NECK: Trachea midline. No JVD. CARDIOVASCULAR: Regular rate and rhythm. RESPIRATORY: No accessory muscle use. Lungs clear to auscultation. Breath sounds equal bilaterally. GASTROINTESTINAL: Abdomen soft, non-tender, nondistended. + BS. MUSCULOSKELETAL: Extremities without cyanosis, or edema. MAEW. + perfused NEUROLOGICAL: Awake and alert. Speech normal. 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 disturbance ICD Codes: S06.9X9S - Unspecified intracranial injury with loss of consciousness of unspecified duration, sequela; F02.80 - Dementia in other diseases classified elsewhere without behavioral disturbance Status: Acute (4) Dyspnea and respiratory abnormalities ICD Codes: R06.00 - Dyspnea, unspecified; R06.89 - Other abnormalities of breathing Status: Resolved (5) Pain, generalized ICD Codes: R52 - Pain, unspecified Status: Acute (6) Subdural hemorrhage ICD Codes: I62.00 - Nontraumatic subdural hemorrhage, unspecified Status: Acute (7) Brain contusion ICD Codes: S06.2X9A - Diffuse traumatic brain injury with loss of consciousness of unspecified duration, initial encounter Status: Acute (8) Skull fractures ICD Codes: S02.91XA - Unspecified fracture of skull, initial encounter for closed fracture Status: Acute (9) Status post craniectomy ICD Codes: Z98.890 - Other specified postprocedural states Status: Acute Assessment and Plan [place]: Found down at home with obvious scalp lac and raccoon eyes. GCS 5-6. INJURIES: Skull fx SDH (temporal and parietal) LEFT cerebral contusions (w /compression of 4th ventricle) RIGHT temporal contusion LEFT parietal lobe contusion 11/13: Intubated in the ED 11/13: Suboccipital craniectomy with ventric placement 11/24: QUALITATIVE RESEARCHER placement 11/25: Open jejunostomy placement 11/28: Ventriculostomy removed 12/07: Downsized QUALITATIVE RESEARCHER to #6 12/08: Decannulated self 12/12: Pulled out own J-tube Diet: Soft diet, Enlive supplements. ST following. Calorie count Pulm: RA. Nebs. Pain: Fentanyl patch. Percocet. Activity: OOB. PT x 7 days and OT ordered. Ambulating with PT. PT increased to BID x 7 days GI: Pepcid Bowel: Senna. MOM. Bisacodyl [place] PRN. LBM: 12/13 DVT: SCD's. Lovenox 30 BID Skull fx, SDH, LEFT cerebral contusions, RIGHT temporal contusion, LEFT parietal lobe contusion Neurosurgery consulted 11/13: Suboccipital craniectomy with ventric placement 11/28: Ventriculostomy removed Trazodone 50 HS Valproic 250 TID for agitation/restlessness ST cognitive and swallow eval Lovenox OOB QD- PT ordered x 7 days/ week Respiratory failure Supportive care 11/24: QUALITATIVE RESEARCHER placement 11/25: Open jejunostomy placement 12/07: Downsized QUALITATIVE RESEARCHER to #6 12/07: Downsized QUALITATIVE RESEARCHER to #6 12/08: Decannulated self On RA HTN Lopressor 25mg BID Hydralazine 25mg q8 Lasix 20mg QD KCl 20meq QD BP improved Plan of care discussed with RN at bedside. No family present during visit. Case management consulted to assist with discharge planning. Patient has been cleared for discharge, but family cannot care for him at home. Case management assisting to find other options for placement. The exam, history, and the medical decision-making described in the above note were completed with the assistance of the mid-level provider. I reviewed and agree with the findings presented. I attest that I had a [id number] encounter with the patient on the same day, and personally performed and documented my assessment and findings in the medical record. Problem Qualifiers (1) Traumatic brain injury: (2) Brain contusion: Qualified Codes: S06.2X9A - Diffuse traumatic brain injury with loss of consciousness of unspecified duration, initial encounter (3) Skull fractures: Deepa Cobian Dec 15, 2016 13:39 Donavon Alfaro MD Dec 16, 2016 13:48
--- NOTE | 2016-12-15 13:39 | HHI.PR ---
Subjective Subjective Notes No acute changes Eating well, calorie count continues Objective Vitals/I&O Vital Signs Date Time Temp Pulse Resp B/P (MAP) Pulse Ox O2 Delivery O2 Flow Rate FiO2 12/15/16 11:30 96.2 88 117/72 (87) 99 12/15/16 07:30 16 Labs Date/Time Source Procedure Growth Status 11/24/16 06:00 Blood Peripheral Aerobic Blood Culture - Final NO GROWTH IN 5 DAYS Complete 11/24/16 06:00 Blood Peripheral Anaerobic Blood Culture - Final NO GROWTH IN 5 DAYS Complete 11/13/16 14:31 Cerebral Spinal Fluid Shunt Fluid Fungal Smear - Final NO FUNGAL ELEMENTS SEEN. Complete 11/13/16 14:31 Cerebral Spinal Fluid Shunt Fluid Fungal Culture - Final NO GROWTH IN 4 WEEKS Complete 11/23/16 18:00 Sputum Endotracheal Gram Stain - Final Complete 11/23/16 18:00 Sputum Culture - Final Escherichia Coli Complete 11/23/16 18:00 Urine Catheterized Urine Urine Culture - Final NO GROWTH IN 48 HOURS. Complete Radiology Last Impressions Chest X-Ray 12/06/16 0600 Signed Impressions: Service Date/Time: Tuesday, December 06, 2016 05:23 - CONCLUSION: Left base consolidation or atelectasis. Fabien Menjivar MD Consultation 12/03/16 0000 Signed Impressions: Service Date/Time: November 00:00 - CONCLUSION: Insufficient ascitic volume for safe paracentesis. Andrea Glez Jr., MD Abdomen/Pelvis CT 12/02/16 0000 Signed Impressions: Service Date/Time: Friday, December 02, 2016 18:58 - CONCLUSION: 1. Status post placement of a gastrostomy tube with a feeding tube in the small bowel. 2. There is a small amount of ascites in the upper abdomen. 3. Bilateral pleural effusions with bibasilar atelectasis. 4. Anasarca. 5. Stable hepatic cysts Haris Lockwood MD Abdomen X-Ray 12/01/16 0000 Signed Impressions: Service Date/Time: Thursday, December 01, 2016 08:13 - CONCLUSION: 1. No evidence of obstruction. Kam Menezes MD Head CT 11/28/16 0800 Signed Impressions: Service Date/Time: Monday, November 28, 2016 08:34 - CONCLUSION: 1. The patient's subdural hemorrhage and intraparenchymal hemorrhage all appear to be undergoing the expected evolution. There is significant decrease in the amount of cerebral edema. 2. The ventricles are normal in size. The ventriculostomy is in good position. Chuy Fitzpatrick MD Maxillofacial CT 11/13/16 1316 Signed Impressions: Service Date/Time: Sunday, November 13, 2016 13:11 - CONCLUSION: Air-fluid level with admixture of air and fluid in the left sphenoid sinus compartment. Otherwise negative. Acute fracture is not identified. Yariel Odell MD Thoracic Spine CT 11/13/161310 Signed Impressions: Service Date/Time: Sunday, November 13, 2016 13:15 - CONCLUSION: No fracture or subluxation. Bobby Rasmussen MD Lumbar Spine CT 11/13/161310 Signed Impressions: Service Date/Time: Sunday, November 13, 2016 13:15 - CONCLUSION: 1. No acute fracture. Spinal canal and neural foramen appear to be adequate throughout. 2. Dextroscoliosis of the lumbar spine with mild associated degenerative changes 3. Diverticular disease of the sigmoid without diverticulitis Aftab Cramer MD Chest CT 11/13/161310 Signed Impressions: Service Date/Time: Sunday, November 13, 2016 13:17 - CONCLUSION: 1. Negative CT scan of the thorax. Chuy Fitzpatrick MD Cervical Spine CT 11/13/161310 Signed Impressions: Service Date/Time: Sunday, November 13, 2016 13:13 - CONCLUSION: 1. No acute fracture the cervical spine identified. There are degenerative changes as above. 2. There is fracture of the right side of the occipital bone. There is subdural hematoma in the posterior fossa on the right and intraparenchymal hemorrhage within the left cerebellar hemisphere. This was assessed by CT imaging of the brain. Chuy Fitzpatrick MD Narrative Exam GENERAL: 61-year-old well-nourished, well developed male OOB in chair. SKIN: Warm and dry. HEAD:Normocephalic. EYES: PERRL. ENT: No nasal bleeding or discharge. Mucous membranes pink and moist. NECK: Trachea midline. No JVD. CARDIOVASCULAR: Regular rate and rhythm. RESPIRATORY: No accessory muscle use. Lungs clear to auscultation. Breath sounds equal bilaterally. GASTROINTESTINAL: Abdomen soft, non-tender, nondistended. + BS. MUSCULOSKELETAL: Extremities without cyanosis, or edema. MAEW. + perfused NEUROLOGICAL: Awake and alert. Speech normal. 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 disturbance ICD Codes: S06.9X9S - Unspecified intracranial injury with loss of consciousness of unspecified duration, sequela; F02.80 - Dementia in other diseases classified elsewhere without behavioral disturbance Status: Acute (4) Dyspnea and respiratory abnormalities ICD Codes: R06.00 - Dyspnea, unspecified; R06.89 - Other abnormalities of breathing Status: Resolved (5) Pain, generalized ICD Codes: R52 - Pain, unspecified Status: Acute (6) Subdural hemorrhage ICD Codes: I62.00 - Nontraumatic subdural hemorrhage, unspecified Status: Acute (7) Brain contusion ICD Codes: S06.2X9A - Diffuse traumatic brain injury with loss of consciousness of unspecified duration, initial encounter Status: Acute (8) Skull fractures ICD Codes: S02.91XA - Unspecified fracture of skull, initial encounter for closed fracture Status: Acute (9) Status post craniectomy ICD Codes: Z98.890 - Other specified postprocedural states Status: Acute Assessment and Plan [place]: Found down at home with obvious scalp lac and raccoon eyes. GCS 5-6. INJURIES: Skull fx SDH (temporal and parietal) LEFT cerebral contusions (w /compression of 4th ventricle) RIGHT temporal contusion LEFT parietal lobe contusion 11/13: Intubated in the ED 11/13: Suboccipital craniectomy with ventric placement 11/24: ANILINE PRESS WORKER placement 11/25: Open jejunostomy placement 11/28: Ventriculostomy removed 12/07: Downsized ANILINE PRESS WORKER to #6 12/08: Decannulated self 12/12: Pulled out own J-tube Diet: Soft diet, Enlive supplements. ST following. Calorie count Pulm: RA. Nebs. Pain: Fentanyl patch. Percocet. Activity: OOB. PT x 7 days and OT ordered. Ambulating with PT. PT increased to BID x 7 days GI: Pepcid Bowel: Senna. MOM. Bisacodyl [place] PRN. LBM: 12/13 DVT: SCD's. Lovenox 30 BID Skull fx, SDH, LEFT cerebral contusions, RIGHT temporal contusion, LEFT parietal lobe contusion Neurosurgery consulted 11/13: Suboccipital craniectomy with ventric placement 11/28: Ventriculostomy removed Trazodone 50 HS Valproic 250 TID for agitation/restlessness ST cognitive and swallow eval Lovenox OOB QD- PT ordered x 7 days/ week Respiratory failure Supportive care 11/24: ANILINE PRESS WORKER placement 11/25: Open jejunostomy placement 12/07: Downsized ANILINE PRESS WORKER to #6 12/07: Downsized ANILINE PRESS WORKER to #6 12/08: Decannulated self On RA HTN Lopressor 25mg BID Hydralazine 25mg q8 Lasix 20mg QD KCl 20meq QD BP improved Plan of care discussed with RN at bedside. No family present during visit. Case management consulted to assist with discharge planning. Patient has been cleared for discharge, but family cannot care for him at home. Case management assisting to find other options for placement. The exam, history, and the medical decision-making described in the above note were completed with the assistance of the mid-level provider. I reviewed and agree with the findings presented. I attest that I had a [id number] encounter with the patient on the same day, and personally performed and documented my assessment and findings in the medical record. Problem Qualifiers (1) Traumatic brain injury: (2) Brain contusion: Qualified Codes: S06.2X9A - Diffuse traumatic brain injury with loss of consciousness of unspecified duration, initial encounter (3) Skull fractures: Deepa Cobian Dec 15, 2016 13:39 Donavon Alfaro MD Dec 16, 2016 13:48
[2016-12-15] MEDS: REMOVE OLD PATCH-FENTANYL T-DERMAL SCH (14:48)
[2016-12-15] MEDS: fentaNYL 25 MCG/HR PATCH T-DERMAL SCH (14:48)
[2016-12-15] MEDS: MAGNESIUM HYDROXIDE SUSP 30 ML CUP PO SCH (21:24)
[2016-12-15] MEDS: traZODone HCL 50 MG TAB PO SCH (21:24)
[2016-12-16 00:04] VITALS: BP 100/57; PULSE 64; RESP 17; TEMP 98.8; O2SAT 97
[2016-12-16] MEDS: SODIUM CHLORIDE 1 GRAM TAB PO SCH ×4 (04:53→22:33)
[2016-12-16 08:00] VITALS: BP 114/69; PULSE 68; RESP 16; TEMP 97.2; O2SAT 93
[2016-12-16] MEDS: VALPROIC ACID SYRUP 250 MG/5 ML UDC PO SCH ×3 (08:06→16:30)
[2016-12-16] MEDS: FUROSEMIDE 40 MG/5 ML UNIT DOSE CUP PO SCH (08:06)
[2016-12-16] MEDS: POTASSIUM CHLORIDE 25 MEQ EFFERVESCENT TAB NG SCH (08:06)
[2016-12-16] MEDS: FAMOTIDINE 20 MG TAB PO SCH ×2 (08:06→22:33)
[2016-12-16] MEDS: METOPROLOL TARTRATE 25 MG TAB PO SCH ×2 (08:06→22:34)
[2016-12-16] MEDS: hydrALAZINE HCL 25 MG TAB PO SCH ×2 (08:06→21:00)
[2016-12-16] MEDS: SENNOSIDES SYRUP 8.8 MG/5 ML CUP PO SCH (08:07)
[2016-12-16] MEDS: MEGESTROL ACETATE SUSP 400 MG/10 ML CUP PO SCH ×4 (08:08→22:34)
[2016-12-16] MEDS: ENOXAPARIN SODIUM 30 MG/0.3 ML SYRINGE SQ SCH ×2 (08:08→22:34)
--- NOTE | 2016-12-16 08:30 | HHI.PR ---
Neuropsych Emotional Emotional: Intact: Emotional, Anxious/Fearful, Depressed/Sad, Hostile/Resentful , Irritable/Angry/Frustrate, Labile, Constricted/Blunted Behavior Behavior: Intact: Impulsive/Agitated, Moderate: Cooperative w/ Treatment Cognitive Cognitive: Severe: Cognitive, Attention/Concentration, Confused/Orientation, Insight/Awareness, Judgement/Problem-Solving, Memory Psychosocial Psychosocial: Intact: Psychosocial, Family/Other Adjustment, Realistic Expectation, Unable to Asses: Self-Esteem/Confidence Progress Notes/Response to Tx Contents of Sessions: Adjustment, Level of Consciousness Time with Patient: 45 minutes Premorbid psychological status Premorbid Cognitive, Emotional and Behavioral Status: Stable. The patient is originally from [facility] and has a solid work history prior to this injury. The patient has no psychiatric difficulties, as described above. Substance abuse history is unremarkable. Behavioral Reactions of Patient and Family/Support System: Stable. The patient s family is experiencing ongoing issues of adjustment given the nature of the injury, and this aspect of recovery will require ongoing monitoring. Emotional/Behavioral Status of Patient and Family/Support System: Stable. Pertinent issues, if appropriate to this patients clinical care, are described in detail above. Maximizing acute care outcome It is recommended that the patient be monitored for emergent behavioral impulsivity as the medical condition evolves. This patients neuropathological challenges may limit their rehabilitation potential going forward, and these challenges will require specialized therapeutic skills to maximize outcome. Additionally, the patients family is experiencing ongoing issues of adjustment given the traumatic nature of the injury, and they will need ongoing psychological assistance. Anticipated Problems Ongoing areas of concern will include behavioral impulsivity, lack of insight and judgment, which is expected to improve with time and treatment. Presently , the patient remains intubated and sedated. Treatment Plan This clinician will continue to follow with you throughout the course of this patients acute care treatment, and I will be available to meet with the patient s family/support system to facilitate their understanding and the ongoing care of their family member. The goals of neuropsychological intervention shall be both educational and supportive to the family/support system as is deemed clinically appropriate. [facility] Level: V:Confused-non agitated Impression This is a 61 year old man s/p TBI 2T probable fall. Diagnosis: (1) Major neurocognitive disorder as late effect of traumatic brain injury without behavioral disturbance Status: Acute Progress Note Narrative Ongoing follow-up of patient seen during daily trauma rounds. This is day 32 post injury. Information received that patient has been refusing PT, but is eating more consistently. Today was a different story as the patient freely ambulated with myself and PT in a cotreatment format. Discussions with stakeholders indicate that patient is too improved for inpatient rehabilitation and can best be managed on an outpatient basis. He continues on Valproic Acid 250 TID and Trazodone 50 HS, and is a [place]. I will be happy to see this patient in my outpatient clinic following his discharge home. Johan Pierson PhD Dec 16, 2016 8:30 am
[2016-12-16 12:00] VITALS: BP 101/56; PULSE 69; RESP 17; TEMP 97.3; O2SAT 98
--- NOTE | 2016-12-16 12:33 | HHI.PR ---
Subjective Subjective Notes PT increased to BID to increase mobility Calorie count continues Objective Vitals/I&O Vital Signs Date Time Temp Pulse Resp B/P (MAP) Pulse Ox O2 Delivery O2 Flow Rate FiO2 12/16/16 12:00 97.3 69 17 101/56 (71) 98 Labs Date/Time Source Procedure Growth Status 11/24/16 06:00 Blood Peripheral Aerobic Blood Culture - Final NO GROWTH IN 5 DAYS Complete 11/24/16 06:00 Blood Peripheral Anaerobic Blood Culture - Final NO GROWTH IN 5 DAYS Complete 11/13/16 14:31 Cerebral Spinal Fluid Shunt Fluid Fungal Smear - Final NO FUNGAL ELEMENTS SEEN. Complete 11/13/16 14:31 Cerebral Spinal Fluid Shunt Fluid Fungal Culture - Final NO GROWTH IN 4 WEEKS Complete 11/23/16 18:00 Sputum Endotracheal Gram Stain - Final Complete 11/23/16 18:00 Sputum Culture - Final Escherichia Coli Complete 11/23/16 18:00 Urine Catheterized Urine Urine Culture - Final NO GROWTH IN 48 HOURS. Complete Radiology Last Impressions Chest X-Ray 12/06/16 0600 Signed Impressions: Service Date/Time: Tuesday, December 06, 2016 05:23 - CONCLUSION: Left base consolidation or atelectasis. Fabien Menjivar MD Consultation 12/03/16 0000 Signed Impressions: Service Date/Time: November 00:00 - CONCLUSION: Insufficient ascitic volume for safe paracentesis. Andrea Glez Jr., MD Abdomen/Pelvis CT 12/02/16 0000 Signed Impressions: Service Date/Time: Friday, December 02, 2016 18:58 - CONCLUSION: 1. Status post placement of a gastrostomy tube with a feeding tube in the small bowel. 2. There is a small amount of ascites in the upper abdomen. 3. Bilateral pleural effusions with bibasilar atelectasis. 4. Anasarca. 5. Stable hepatic cysts Haris Lockwood MD Abdomen X-Ray 12/01/16 0000 Signed Impressions: Service Date/Time: Thursday, December 01, 2016 08:13 - CONCLUSION: 1. No evidence of obstruction. Kam Menezes MD Head CT 11/28/16 0800 Signed Impressions: Service Date/Time: Monday, November 28, 2016 08:34 - CONCLUSION: 1. The patient's subdural hemorrhage and intraparenchymal hemorrhage all appear to be undergoing the expected evolution. There is significant decrease in the amount of cerebral edema. 2. The ventricles are normal in size. The ventriculostomy is in good position. Chuy Fitzpatrick MD Maxillofacial CT 11/13/16 1316 Signed Impressions: Service Date/Time: Sunday, November 13, 2016 13:11 - CONCLUSION: Air-fluid level with admixture of air and fluid in the left sphenoid sinus compartment. Otherwise negative. Acute fracture is not identified. Yariel Odell MD Thoracic Spine CT 11/13/161310 Signed Impressions: Service Date/Time: Sunday, November 13, 2016 13:15 - CONCLUSION: No fracture or subluxation. Bobby Rasmussen MD Lumbar Spine CT 11/13/161310 Signed Impressions: Service Date/Time: Sunday, November 13, 2016 13:15 - CONCLUSION: 1. No acute fracture. Spinal canal and neural foramen appear to be adequate throughout. 2. Dextroscoliosis of the lumbar spine with mild associated degenerative changes 3. Diverticular disease of the sigmoid without diverticulitis Aftab Cramer MD Chest CT 11/13/161310 Signed Impressions: Service Date/Time: Sunday, November 13, 2016 13:17 - CONCLUSION: 1. Negative CT scan of the thorax. Chuy Fitzpatrick MD Cervical Spine CT 11/13/161310 Signed Impressions: Service Date/Time: Sunday, November 13, 2016 13:13 - CONCLUSION: 1. No acute fracture the cervical spine identified. There are degenerative changes as above. 2. There is fracture of the right side of the occipital bone. There is subdural hematoma in the posterior fossa on the right and intraparenchymal hemorrhage within the left cerebellar hemisphere. This was assessed by CT imaging of the brain. Chuy Fitzpatrick MD Narrative Exam GENERAL: 61-year-old well-nourished, well developed male lying in bed. SKIN: Warm and dry. HEAD:Normocephalic. EYES: PERRL. ENT: No nasal bleeding or discharge. Mucous membranes pink and moist. NECK: Trachea midline. No JVD. CARDIOVASCULAR: Regular rate and rhythm. RESPIRATORY: No accessory muscle use. Lungs clear to auscultation. Breath sounds equal bilaterally. GASTROINTESTINAL: Abdomen soft, non-tender, nondistended. + BS. MUSCULOSKELETAL: Extremities without cyanosis, or edema. MAEW. + perfused NEUROLOGICAL: Awake and alert. Speech normal. 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 disturbance ICD Codes: S06.9X9S - Unspecified intracranial injury with loss of consciousness of unspecified duration, sequela; F02.80 - Dementia in other diseases classified elsewhere without behavioral disturbance Status: Acute (4) Dyspnea and respiratory abnormalities ICD Codes: R06.00 - Dyspnea, unspecified; R06.89 - Other abnormalities of breathing Status: Resolved (5) Pain, generalized ICD Codes: R52 - Pain, unspecified Status: Acute (6) Subdural hemorrhage ICD Codes: I62.00 - Nontraumatic subdural hemorrhage, unspecified Status: Acute (7) Brain contusion ICD Codes: S06.2X9A - Diffuse traumatic brain injury with loss of consciousness of unspecified duration, initial encounter Status: Acute (8) Skull fractures ICD Codes: S02.91XA - Unspecified fracture of skull, initial encounter for closed fracture Status: Acute (9) Status post craniectomy ICD Codes: Z98.890 - Other specified postprocedural states Status: Acute Assessment and Plan [place]: Found down at home with obvious scalp lac and raccoon eyes. GCS 5-6. INJURIES: Skull fx SDH (temporal and parietal) LEFT cerebral contusions (w /compression of 4th ventricle) RIGHT temporal contusion LEFT parietal lobe contusion 11/13: Intubated in the ED 11/13: Suboccipital craniectomy with ventric placement 11/24: INSURANCE SALES PRODUCER placement 11/25: Open jejunostomy placement 11/28: Ventriculostomy removed 12/07: Downsized INSURANCE SALES PRODUCER to #6 12/08: Decannulated self 12/12: Pulled out own J-tube Diet: Soft diet, Enlive supplements. ST following. Calorie count Pulm: RA. Nebs. Pain: Fentanyl patch. Percocet. Activity: OOB. PT BID x 7 days/week and OT ordered. GI: Pepcid Bowel: Senna. MOM. Bisacodyl ND PRN. LBM: 12/15 DVT: SCD's. Lovenox 30 BID Skull fx, SDH, LEFT cerebral contusions, RIGHT temporal contusion, LEFT parietal lobe contusion Neurosurgery consulted 11/13: Suboccipital craniectomy with ventric placement 11/28: Ventriculostomy removed Trazodone 50 HS Valproic 250 TID for agitation/restlessness ST cognitive and swallow eval Lovenox OOB QD- PT ordered x 7 days/ week Respiratory failure Supportive care 11/24: INSURANCE SALES PRODUCER placement 11/25: Open jejunostomy placement 12/07: Downsized INSURANCE SALES PRODUCER to #6 12/07: Downsized INSURANCE SALES PRODUCER to #6 12/08: Decannulated self On RA HTN Lopressor 25mg BID Hydralazine 25mg q8 Lasix 20mg QD KCl 20meq QD BP improved Plan of care discussed with patient and RN at bedside. No family present during visit. Case management consulted to assist with discharge planning. Patient has been cleared for discharge, but family cannot care for him at home. Family making arrangements for a timekeeper supervisor aid at home. Marcell evaluating for possible placement to increase mobility. The exam, history, and the medical decision-making described in the above note were completed with the assistance of the mid-level provider. I reviewed and agree with the findings presented. I attest that I had a [id number] encounter with the patient on the same day, and personally performed and documented my assessment and findings in the medical record. Problem Qualifiers (1) Traumatic brain injury: (2) Brain contusion: Qualified Codes: S06.2X9A - Diffuse traumatic brain injury with loss of consciousness of unspecified duration, initial encounter (3) Skull fractures: Deepa Cobian Dec 16, 2016 12:33 Donavon Alfaro MD Dec 16, 2016 13:49
--- NOTE | 2016-12-16 12:33 | HHI.PR ---
Subjective Subjective Notes PT increased to BID to increase mobility Calorie count continues Objective Vitals/I&O Vital Signs Date Time Temp Pulse Resp B/P (MAP) Pulse Ox O2 Delivery O2 Flow Rate FiO2 12/16/16 12:00 97.3 69 17 101/56 (71) 98 Labs Date/Time Source Procedure Growth Status 11/24/16 06:00 Blood Peripheral Aerobic Blood Culture - Final NO GROWTH IN 5 DAYS Complete 11/24/16 06:00 Blood Peripheral Anaerobic Blood Culture - Final NO GROWTH IN 5 DAYS Complete 11/13/16 14:31 Cerebral Spinal Fluid Shunt Fluid Fungal Smear - Final NO FUNGAL ELEMENTS SEEN. Complete 11/13/16 14:31 Cerebral Spinal Fluid Shunt Fluid Fungal Culture - Final NO GROWTH IN 4 WEEKS Complete 11/23/16 18:00 Sputum Endotracheal Gram Stain - Final Complete 11/23/16 18:00 Sputum Culture - Final Escherichia Coli Complete 11/23/16 18:00 Urine Catheterized Urine Urine Culture - Final NO GROWTH IN 48 HOURS. Complete Radiology Last Impressions Chest X-Ray 12/06/16 0600 Signed Impressions: Service Date/Time: Tuesday, December 06, 2016 05:23 - CONCLUSION: Left base consolidation or atelectasis. Fabien Menjivar MD Consultation 12/03/16 0000 Signed Impressions: Service Date/Time: November 00:00 - CONCLUSION: Insufficient ascitic volume for safe paracentesis. Andrea Glez Jr., MD Abdomen/Pelvis CT 12/02/16 0000 Signed Impressions: Service Date/Time: Friday, December 02, 2016 18:58 - CONCLUSION: 1. Status post placement of a gastrostomy tube with a feeding tube in the small bowel. 2. There is a small amount of ascites in the upper abdomen. 3. Bilateral pleural effusions with bibasilar atelectasis. 4. Anasarca. 5. Stable hepatic cysts Haris Lockwood MD Abdomen X-Ray 12/01/16 0000 Signed Impressions: Service Date/Time: Thursday, December 01, 2016 08:13 - CONCLUSION: 1. No evidence of obstruction. Kam Menezes MD Head CT 11/28/16 0800 Signed Impressions: Service Date/Time: Monday, November 28, 2016 08:34 - CONCLUSION: 1. The patient's subdural hemorrhage and intraparenchymal hemorrhage all appear to be undergoing the expected evolution. There is significant decrease in the amount of cerebral edema. 2. The ventricles are normal in size. The ventriculostomy is in good position. Chuy Fitzpatrick MD Maxillofacial CT 11/13/16 1316 Signed Impressions: Service Date/Time: Sunday, November 13, 2016 13:11 - CONCLUSION: Air-fluid level with admixture of air and fluid in the left sphenoid sinus compartment. Otherwise negative. Acute fracture is not identified. Yariel Odell MD Thoracic Spine CT 11/13/161310 Signed Impressions: Service Date/Time: Sunday, November 13, 2016 13:15 - CONCLUSION: No fracture or subluxation. Bobby Rasmussen MD Lumbar Spine CT 11/13/161310 Signed Impressions: Service Date/Time: Sunday, November 13, 2016 13:15 - CONCLUSION: 1. No acute fracture. Spinal canal and neural foramen appear to be adequate throughout. 2. Dextroscoliosis of the lumbar spine with mild associated degenerative changes 3. Diverticular disease of the sigmoid without diverticulitis Aftba Cramer MD Chest CT 11/13/161310 Signed Impressions: Service Date/Time: Sunday, November 13, 2016 13:17 - CONCLUSION: 1. Negative CT scan of the thorax. Chuy Fitzpatrick MD Cervical Spine CT 11/13/161310 Signed Impressions: Service Date/Time: Sunday, November 13, 2016 13:13 - CONCLUSION: 1. No acute fracture the cervical spine identified. There are degenerative changes as above. 2. There is fracture of the right side of the occipital bone. There is subdural hematoma in the posterior fossa on the right and intraparenchymal hemorrhage within the left cerebellar hemisphere. This was assessed by CT imaging of the brain. Chuy Fitzpatrick MD Narrative Exam GENERAL: 61-year-old well-nourished, well developed male lying in bed. SKIN: Warm and dry. HEAD:Normocephalic. EYES: PERRL. ENT: No nasal bleeding or discharge. Mucous membranes pink and moist. NECK: Trachea midline. No JVD. CARDIOVASCULAR: Regular rate and rhythm. RESPIRATORY: No accessory muscle use. Lungs clear to auscultation. Breath sounds equal bilaterally. GASTROINTESTINAL: Abdomen soft, non-tender, nondistended. + BS. MUSCULOSKELETAL: Extremities without cyanosis, or edema. MAEW. + perfused NEUROLOGICAL: Awake and alert. Speech normal. 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 disturbance ICD Codes: S06.9X9S - Unspecified intracranial injury with loss of consciousness of unspecified duration, sequela; F02.80 - Dementia in other diseases classified elsewhere without behavioral disturbance Status: Acute (4) Dyspnea and respiratory abnormalities ICD Codes: R06.00 - Dyspnea, unspecified; R06.89 - Other abnormalities of breathing Status: Resolved (5) Pain, generalized ICD Codes: R52 - Pain, unspecified Status: Acute (6) Subdural hemorrhage ICD Codes: I62.00 - Nontraumatic subdural hemorrhage, unspecified Status: Acute (7) Brain contusion ICD Codes: S06.2X9A - Diffuse traumatic brain injury with loss of consciousness of unspecified duration, initial encounter Status: Acute (8) Skull fractures ICD Codes: S02.91XA - Unspecified fracture of skull, initial encounter for closed fracture Status: Acute (9) Status post craniectomy ICD Codes: Z98.890 - Other specified postprocedural states Status: Acute Assessment and Plan [place]: Found down at home with obvious scalp lac and raccoon eyes. GCS 5-6. INJURIES: Skull fx SDH (temporal and parietal) LEFT cerebral contusions (w /compression of 4th ventricle) RIGHT temporal contusion LEFT parietal lobe contusion 11/13: Intubated in the ED 11/13: Suboccipital craniectomy with ventric placement 11/24: BUSINESS SOLUTION ANALYST placement 11/25: Open jejunostomy placement 11/28: Ventriculostomy removed 12/07: Downsized BUSINESS SOLUTION ANALYST to #6 12/08: Decannulated self 12/12: Pulled out own J-tube Diet: Soft diet, Enlive supplements. ST following. Calorie count Pulm: RA. Nebs. Pain: Fentanyl patch. Percocet. Activity: OOB. PT BID x 7 days/week and OT ordered. GI: Pepcid Bowel: Senna. MOM. Bisacodyl [place] PRN. LBM: 12/15 DVT: SCD's. Lovenox 30 BID Skull fx, SDH, LEFT cerebral contusions, RIGHT temporal contusion, LEFT parietal lobe contusion Neurosurgery consulted 11/13: Suboccipital craniectomy with ventric placement 11/28: Ventriculostomy removed Trazodone 50 HS Valproic 250 TID for agitation/restlessness ST cognitive and swallow eval Lovenox OOB QD- PT ordered x 7 days/ week Respiratory failure Supportive care 11/24: BUSINESS SOLUTION ANALYST placement 11/25: Open jejunostomy placement 12/07: Downsized BUSINESS SOLUTION ANALYST to #6 12/07: Downsized BUSINESS SOLUTION ANALYST to #6 12/08: Decannulated self On RA HTN Lopressor 25mg BID Hydralazine 25mg q8 Lasix 20mg QD KCl 20meq QD BP improved Plan of care discussed with patient and RN at bedside. No family present during visit. Case management consulted to assist with discharge planning. Patient has been cleared for discharge, but family cannot care for him at home. Family making arrangements for a daytime babysitter aid at home. Marcell evaluating for possible placement to increase mobility. The exam, history, and the medical decision-making described in the above note were completed with the assistance of the mid-level provider. I reviewed and agree with the findings presented. I attest that I had a [id number] encounter with the patient on the same day, and personally performed and documented my assessment and findings in the medical record. Problem Qualifiers (1) Traumatic brain injury: (2) Brain contusion: Qualified Codes: S06.2X9A - Diffuse traumatic brain injury with loss of consciousness of unspecified duration, initial encounter (3) Skull fractures: Deepa Cobian Dec 16, 2016 12:33 Donavon Alfaro MD Dec 16, 2016 13:49
--- NOTE | 2016-12-16 12:33 | HHI.PR ---
Subjective Subjective Notes PT increased to BID to increase mobility Calorie count continues Objective Vitals/I&O Vital Signs Date Time Temp Pulse Resp B/P (MAP) Pulse Ox O2 Delivery O2 Flow Rate FiO2 12/16/16 12:00 97.3 69 17 101/56 (71) 98 Labs Date/Time Source Procedure Growth Status 11/24/16 06:00 Blood Peripheral Aerobic Blood Culture - Final NO GROWTH IN 5 DAYS Complete 11/24/16 06:00 Blood Peripheral Anaerobic Blood Culture - Final NO GROWTH IN 5 DAYS Complete 11/13/16 14:31 Cerebral Spinal Fluid Shunt Fluid Fungal Smear - Final NO FUNGAL ELEMENTS SEEN. Complete 11/13/16 14:31 Cerebral Spinal Fluid Shunt Fluid Fungal Culture - Final NO GROWTH IN 4 WEEKS Complete 11/23/16 18:00 Sputum Endotracheal Gram Stain - Final Complete 11/23/16 18:00 Sputum Culture - Final Escherichia Coli Complete 11/23/16 18:00 Urine Catheterized Urine Urine Culture - Final NO GROWTH IN 48 HOURS. Complete Radiology Last Impressions Chest X-Ray 12/06/16 0600 Signed Impressions: Service Date/Time: Tuesday, December 06, 2016 05:23 - CONCLUSION: Left base consolidation or atelectasis. Fabien Menjivar MD Consultation 12/03/16 0000 Signed Impressions: Service Date/Time: November 00:00 - CONCLUSION: Insufficient ascitic volume for safe paracentesis. Andrea Glez Jr., MD Abdomen/Pelvis CT 12/02/16 0000 Signed Impressions: Service Date/Time: Friday, December 02, 2016 18:58 - CONCLUSION: 1. Status post placement of a gastrostomy tube with a feeding tube in the small bowel. 2. There is a small amount of ascites in the upper abdomen. 3. Bilateral pleural effusions with bibasilar atelectasis. 4. Anasarca. 5. Stable hepatic cysts Haris Lockwood MD Abdomen X-Ray 12/01/16 0000 Signed Impressions: Service Date/Time: Thursday, December 01, 2016 08:13 - CONCLUSION: 1. No evidence of obstruction. Kam Menezes MD Head CT 11/28/16 0800 Signed Impressions: Service Date/Time: Monday, November 28, 2016 08:34 - CONCLUSION: 1. The patient's subdural hemorrhage and intraparenchymal hemorrhage all appear to be undergoing the expected evolution. There is significant decrease in the amount of cerebral edema. 2. The ventricles are normal in size. The ventriculostomy is in good position. Chuy Fitzpatrick MD Maxillofacial CT 11/13/16 1316 Signed Impressions: Service Date/Time: Sunday, November 13, 2016 13:11 - CONCLUSION: Air-fluid level with admixture of air and fluid in the left sphenoid sinus compartment. Otherwise negative. Acute fracture is not identified. Yariel Odell MD Thoracic Spine CT 11/13/161310 Signed Impressions: Service Date/Time: Sunday, November 13, 2016 13:15 - CONCLUSION: No fracture or subluxation. Bobby Rasmussen MD Lumbar Spine CT 11/13/161310 Signed Impressions: Service Date/Time: Sunday, November 13, 2016 13:15 - CONCLUSION: 1. No acute fracture. Spinal canal and neural foramen appear to be adequate throughout. 2. Dextroscoliosis of the lumbar spine with mild associated degenerative changes 3. Diverticular disease of the sigmoid without diverticulitis Aftab Cramer MD Chest CT 11/13/161310 Signed Impressions: Service Date/Time: Sunday, November 13, 2016 13:17 - CONCLUSION: 1. Negative CT scan of the thorax. Chuy Fitzpatrick MD Cervical Spine CT 11/13/161310 Signed Impressions: Service Date/Time: Sunday, November 13, 2016 13:13 - CONCLUSION: 1. No acute fracture the cervical spine identified. There are degenerative changes as above. 2. There is fracture of the right side of the occipital bone. There is subdural hematoma in the posterior fossa on the right and intraparenchymal hemorrhage within the left cerebellar hemisphere. This was assessed by CT imaging of the brain. Chuy Fitzpatrick MD Narrative Exam GENERAL: 61-year-old well-nourished, well developed male lying in bed. SKIN: Warm and dry. HEAD:Normocephalic. EYES: PERRL. ENT: No nasal bleeding or discharge. Mucous membranes pink and moist. NECK: Trachea midline. No JVD. CARDIOVASCULAR: Regular rate and rhythm. RESPIRATORY: No accessory muscle use. Lungs clear to auscultation. Breath sounds equal bilaterally. GASTROINTESTINAL: Abdomen soft, non-tender, nondistended. + BS. MUSCULOSKELETAL: Extremities without cyanosis, or edema. MAEW. + perfused NEUROLOGICAL: Awake and alert. Speech normal. 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 disturbance ICD Codes: S06.9X9S - Unspecified intracranial injury with loss of consciousness of unspecified duration, sequela; F02.80 - Dementia in other diseases classified elsewhere without behavioral disturbance Status: Acute (4) Dyspnea and respiratory abnormalities ICD Codes: R06.00 - Dyspnea, unspecified; R06.89 - Other abnormalities of breathing Status: Resolved (5) Pain, generalized ICD Codes: R52 - Pain, unspecified Status: Acute (6) Subdural hemorrhage ICD Codes: I62.00 - Nontraumatic subdural hemorrhage, unspecified Status: Acute (7) Brain contusion ICD Codes: S06.2X9A - Diffuse traumatic brain injury with loss of consciousness of unspecified duration, initial encounter Status: Acute (8) Skull fractures ICD Codes: S02.91XA - Unspecified fracture of skull, initial encounter for closed fracture Status: Acute (9) Status post craniectomy ICD Codes: Z98.890 - Other specified postprocedural states Status: Acute Assessment and Plan [place]: Found down at home with obvious scalp lac and raccoon eyes. GCS 5-6. INJURIES: Skull fx SDH (temporal and parietal) LEFT cerebral contusions (w /compression of 4th ventricle) RIGHT temporal contusion LEFT parietal lobe contusion 11/13: Intubated in the ED 11/13: Suboccipital craniectomy with ventric placement 11/24: SCHOOL SUPERVISOR placement 11/25: Open jejunostomy placement 11/28: Ventriculostomy removed 12/07: Downsized SCHOOL SUPERVISOR to #6 12/08: Decannulated self 12/12: Pulled out own J-tube Diet: Soft diet, Enlive supplements. ST following. Calorie count Pulm: RA. Nebs. Pain: Fentanyl patch. Percocet. Activity: OOB. PT BID x 7 days/week and OT ordered. GI: Pepcid Bowel: Senna. MOM. Bisacodyl [place] PRN. LBM: 12/15 DVT: SCD's. Lovenox 30 BID Skull fx, SDH, LEFT cerebral contusions, RIGHT temporal contusion, LEFT parietal lobe contusion Neurosurgery consulted 11/13: Suboccipital craniectomy with ventric placement 11/28: Ventriculostomy removed Trazodone 50 HS Valproic 250 TID for agitation/restlessness ST cognitive and swallow eval Lovenox OOB QD- PT ordered x 7 days/ week Respiratory failure Supportive care 11/24: SCHOOL SUPERVISOR placement 11/25: Open jejunostomy placement 12/07: Downsized SCHOOL SUPERVISOR to #6 12/07: Downsized SCHOOL SUPERVISOR to #6 12/08: Decannulated self On RA HTN Lopressor 25mg BID Hydralazine 25mg q8 Lasix 20mg QD KCl 20meq QD BP improved Plan of care discussed with patient and RN at bedside. No family present during visit. Case management consulted to assist with discharge planning. Patient has been cleared for discharge, but family cannot care for him at home. Family making arrangements for a time clerk aid at home. [facility] evaluating for possible placement to increase mobility. The exam, history, and the medical decision-making described in the above note were completed with the assistance of the mid-level provider. I reviewed and agree with the findings presented. I attest that I had a [id number] encounter with the patient on the same day, and personally performed and documented my assessment and findings in the medical record. Problem Qualifiers (1) Traumatic brain injury: (2) Brain contusion: Qualified Codes: S06.2X9A - Diffuse traumatic brain injury with loss of consciousness of unspecified duration, initial encounter (3) Skull fractures: Deepa Cobian Dec 16, 2016 12:33 Donavon Alfaro MD Dec 16, 2016 13:49
[2016-12-16 16:00] VITALS: BP 149/74; PULSE 61; RESP 16; TEMP 98; O2SAT 99
[2016-12-16 20:00] VITALS: BP 115/73; PULSE 84; RESP 17; TEMP 97.7; O2SAT 99
[2016-12-16] MEDS: MAGNESIUM HYDROXIDE SUSP 30 ML CUP PO SCH (21:00)
[2016-12-16] MEDS: traZODone HCL 50 MG TAB PO SCH (22:33)
[2016-12-17] VITALS: BP 125/77; PULSE 66; RESP 17; TEMP 96.7; O2SAT 100
[2016-12-17] MEDS: SODIUM CHLORIDE 1 GRAM TAB PO SCH ×4 (00:51→20:23)
[2016-12-17 08:00] VITALS: BP 127/78; PULSE 74; RESP 16; TEMP 98.1; O2SAT 98
[2016-12-17] MEDS: MEGESTROL ACETATE SUSP 400 MG/10 ML CUP PO SCH ×4 (08:15→20:24)
[2016-12-17] MEDS: SENNOSIDES SYRUP 8.8 MG/5 ML CUP PO SCH (08:15)
[2016-12-17] MEDS: FAMOTIDINE 20 MG TAB PO SCH ×2 (08:15→20:24)
[2016-12-17] MEDS: hydrALAZINE HCL 25 MG TAB PO SCH ×2 (08:15→20:23)
[2016-12-17] MEDS: VALPROIC ACID SYRUP 250 MG/5 ML UDC PO SCH ×3 (08:15→15:58)
[2016-12-17] MEDS: METOPROLOL TARTRATE 25 MG TAB PO SCH ×2 (08:15→20:24)
[2016-12-17] MEDS: FUROSEMIDE 40 MG/5 ML UNIT DOSE CUP PO SCH (08:16)
[2016-12-17] MEDS: ENOXAPARIN SODIUM 30 MG/0.3 ML SYRINGE SQ SCH ×3 (08:20→20:27)
[2016-12-17] MEDS: POTASSIUM CHLORIDE 25 MEQ EFFERVESCENT TAB NG SCH (08:21)
--- NOTE | 2016-12-17 08:38 | HHI.PR ---
Neuropsych Emotional Emotional: Intact: Emotional, Anxious/Fearful, Depressed/Sad, Hostile/Resentful , Irritable/Angry/Frustrate, Labile, Constricted/Blunted Behavior Behavior: Intact: Coping/Acceptance, Cooperative w/ Treatment, Motivation, Moderate: Impulsive/Agitated Cognitive Cognitive: Severe: Cognitive, Attention/Concentration, Confused/Orientation, Insight/Awareness, Judgement/Problem-Solving, Memory Psychosocial Psychosocial: Moderate: Psychosocial, Family/Other Adjustment, Realistic Expectation, Unable to Asses: Self-Esteem/Confidence Progress Notes/Response to Tx Contents of Sessions: Adjustment, Level of Consciousness Time with Patient: 30 minutes Premorbid psychological status Premorbid Cognitive, Emotional and Behavioral Status: Stable. The patient is originally from [facility] and has a solid work history prior to this injury. The patient has no psychiatric difficulties, as described above. Substance abuse history is unremarkable. Behavioral Reactions of Patient and Family/Support System: Stable. The patient s family is experiencing ongoing issues of adjustment given the nature of the injury, and this aspect of recovery will require ongoing monitoring. Emotional/Behavioral Status of Patient and Family/Support System: Stable. Pertinent issues, if appropriate to this patients clinical care, are described in detail above. Maximizing acute care outcome It is recommended that the patient be monitored for emergent behavioral impulsivity as the medical condition evolves. This patients neuropathological challenges may limit their rehabilitation potential going forward, and these challenges will require specialized therapeutic skills to maximize outcome. Additionally, the patients family is experiencing ongoing issues of adjustment given the traumatic nature of the injury, and they will need ongoing psychological assistance. Anticipated Problems Ongoing areas of concern will include behavioral impulsivity, lack of insight and judgment, which is expected to improve with time and treatment. Presently , the patient remains intubated and sedated. Treatment Plan This clinician will continue to follow with you throughout the course of this patients acute care treatment, and I will be available to meet with the patient s family/support system to facilitate their understanding and the ongoing care of their family member. The goals of neuropsychological intervention shall be both educational and supportive to the family/support system as is deemed clinically appropriate. [facility] Level: V:Confused-non agitated Impression This is a 61 year old man s/p TBI 2T probable fall. Diagnosis: (1) Major neurocognitive disorder as late effect of traumatic brain injury without behavioral disturbance Status: Acute Progress Note Narrative Ongoing follow-up of patient seen during daily trauma rounds. This is day 33 post injury. He is stable, remains confused but improving, participating in PT yesterday. Neurobehaviorally, he is impulsive with left visual neglect, impaired awareness, insight and judgment, and thus requires close supervision. He remains on Valproic Acid 250 TID and Trazodone 50 HS. He is [place] I will continue to follow. Johan Pierson PhD Dec 17, 2016 8:38 am
--- NOTE | 2016-12-17 10:24 | HHI.PR ---
Subjective Subjective Notes PTD: 35 Patient sitting up in bed. Daughter at bedside. Patient states, "Hello, I'm doing okay. Thank you." No complaints offered. Objective Vitals/I&O Vital Signs Date Time Temp Pulse Resp B/P (MAP) Pulse Ox O2 Delivery O2 Flow Rate FiO2 12/17/16 08:00 98.1 74 16 127/78 (94) 98 Labs Date/Time Source Procedure Growth Status 11/24/16 06:00 Blood Peripheral Aerobic Blood Culture - Final NO GROWTH IN 5 DAYS Complete 11/24/16 06:00 Blood Peripheral Anaerobic Blood Culture - Final NO GROWTH IN 5 DAYS Complete 11/13/16 14:31 Cerebral Spinal Fluid Shunt Fluid Fungal Smear - Final NO FUNGAL ELEMENTS SEEN. Complete 11/13/16 14:31 Cerebral Spinal Fluid Shunt Fluid Fungal Culture - Final NO GROWTH IN 4 WEEKS Complete 11/23/16 18:00 Sputum Endotracheal Gram Stain - Final Complete 11/23/16 18:00 Sputum Culture - Final Escherichia Coli Complete 11/23/16 18:00 Urine Catheterized Urine Urine Culture - Final NO GROWTH IN 48 HOURS. Complete Narrative Exam GENERAL: This is a 61-year-old male sitting up in bed. No distress noted. SKIN: Warm and dry. HEAD: Atraumatic. Normocephalic. EYES: PERRLA ENT: No nasal bleeding or discharge. Mucous membranes pink and moist. NECK: Trachea midline. No JVD. CARDIOVASCULAR: Regular rate and rhythm. RESPIRATORY: No accessory muscle use. Lungs are clear to auscultation. Breath sounds equal bilaterally. No distress or dyspnea. GASTROINTESTINAL: BS + x 4 quads. Abdomen soft, non-tender, nondistended. MUSCULOSKELETAL: Extremities without cyanosis, or edema. + peripheral pulses x 4 extremities. Warm with good capillary refill and sensation. MAEW. NEUROLOGICAL: Awake and alert. Answers questions in full sentences. 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 disturbance ICD Codes: S06.9X9S - Unspecified intracranial injury with loss of consciousness of unspecified duration, sequela; F02.80 - Dementia in other diseases classified elsewhere without behavioral disturbance Status: Acute (4) Dyspnea and respiratory abnormalities ICD Codes: R06.00 - Dyspnea, unspecified; R06.89 - Other abnormalities of breathing Status: Resolved (5) Pain, generalized ICD Codes: R52 - Pain, unspecified Status: Acute (6) Subdural hemorrhage ICD Codes: I62.00 - Nontraumatic subdural hemorrhage, unspecified Status: Acute (7) Brain contusion ICD Codes: S06.2X9A - Diffuse traumatic brain injury with loss of consciousness of unspecified duration, initial encounter Status: Acute (8) Skull fractures ICD Codes: S02.91XA - Unspecified fracture of skull, initial encounter for closed fracture Status: Acute (9) Status post craniectomy ICD Codes: Z98.890 - Other specified postprocedural states Status: Acute Assessment and Plan [place]: This is a 61-year-old male who was found down at home with an obvious scalp lac and raccoon eyes. GCS 5-6. Obtunded. He was intubated in the ED. + Cannabis. INJURIES: Skull fx SDH (temporal and parietal) LEFT cerebral contusions (w /compression of 4th ventricle) RIGHT temporal contusion LEFT parietal lobe contusion Procedures: 11/13: Intubated in the ED 11/13: Suboccipital craniectomy 11/24: BEDSIDE TRACH 11/25: Open jejunostomy placement 11/28: Ventric out 12/07: Downsized PARI MUTUEL TICKET SELLER to #6 12/08: Decannulated self 12/12: Pulled out own J-tube Consults: CCM. Neurosurgery. Palliative care. Speech therapy. Rehabilitation medicine. Ashley. Marcell nurse liaison. Case management. Diet: Regular soft diet. Tolerating po diet. Encourage good po intake with each meal. Megace. (Calorie count complete - however question accuracy as outside food sources being brought in for patient) continue to monitor Pulmonary: Encourage good pulmonary toileting. IS at bedside and pt encouraged to use. Rationale for use explained to patient, and verbalized understanding. Duo nebs. PAIN Management: Fentanyl patch 25 mcg. Percocet 5 mg q6h. Behavior: Trazadone 50 HS. Valproic 250 TID Activity: OOB. PT x 7 DAYS and BID and OT ordered. (cranial helmet) GI prophylaxis: Pepcid. Bowel regimen: Senna. MOM. Bisacodyl [place] PRN. LBM: 12/15 DVT prophylaxis: Mechanical VTE with SCDs. Chemical management with Lovenox 30 BID SQ. DC Planning: Case management consulted for assistance with final discharge disposition. Patient does not have insurance, therefore placement has been difficult. However, patient has been progressing very well. He is now tolerating a po diet and has been ambulating. PT has been intensified to 7 days a week and BID to promote progress to discharge home. He may [facility] be [facility] at [facility] for a lambert bed is family can show that they can provide engineering executive care for him at home upon discharge. Awaiting acceptance and further plan for discharge. Emotional support provided to patient and family at bedside and plan of care discussed. Discussed with RN at bedside. Patient is hemodynamically stable and being managed on the med/surg floor. The trauma team will round each day, and evaluate plan of care on a daily basis. Skull fx SDH, LEFT cerebral contusions RIGHT temporal contusion LEFT parietal lobe contusion Neurosurgery consulted and assisting in management and care 11/13: Suboccipital craniectomy with ventric placement 11/28: Ventriculostomy removed Trazodone 50 HS Valproic 250 TID for agitation/restlessness ST cognitive and swallow eval Toterating po Lovenox BID OOB QD- PT ordered x 7 days/ week Respiratory failure Supportive care 11/24: PARI MUTUEL TICKET SELLER placement 11/25: Open jejunostomy placement 12/07: Downsized PARI MUTUEL TICKET SELLER to #6 12/08: Self removed trach Oral care BID Suction PRN HTN Lopressor 25mg BID Hydralazine 25mg q8 Lasix 20mg QD KCl 20meq QD BP improved Self removed J-tube. 12/12: Patient self removed his J-tube Bumper has been removed by RN at bedside. Examined J-tube, and it appears to have been broken/cut as the balloon portion is missing He may have a retained portion of the J-tube internally. Discussed with RN to examine each of patient's stools for possible retained J- tube Monitor patient closely for obstruction If patient becomes distended - obtain stat KUB x-ray Notify Physician Remarks Patient seen and examined the nurse practitioner, overall stable, continue pain control DVT prophylaxis physical therapy Problem Qualifiers (1) Traumatic brain injury: (2) Brain contusion: Qualified Codes: S06.2X9A - Diffuse traumatic brain injury with loss of consciousness of unspecified duration, initial encounter (3) Skull fractures: Rose Marie Brennan Dec 17, 2016 10:23 Ayesha Brown MD Dec 17, 2016 17:22
--- NOTE | 2016-12-17 10:24 | HHI.PR ---
Subjective Subjective Notes PTD: 35 Patient sitting up in bed. Daughter at bedside. Patient states, "Hello, I'm doing okay. Thank you." No complaints offered. Objective Vitals/I&O Vital Signs Date Time Temp Pulse Resp B/P (MAP) Pulse Ox O2 Delivery O2 Flow Rate FiO2 12/17/16 08:00 98.1 74 16 127/78 (94) 98 Labs Date/Time Source Procedure Growth Status 11/24/16 06:00 Blood Peripheral Aerobic Blood Culture - Final NO GROWTH IN 5 DAYS Complete 11/24/16 06:00 Blood Peripheral Anaerobic Blood Culture - Final NO GROWTH IN 5 DAYS Complete 11/13/16 14:31 Cerebral Spinal Fluid Shunt Fluid Fungal Smear - Final NO FUNGAL ELEMENTS SEEN. Complete 11/13/16 14:31 Cerebral Spinal Fluid Shunt Fluid Fungal Culture - Final NO GROWTH IN 4 WEEKS Complete 11/23/16 18:00 Sputum Endotracheal Gram Stain - Final Complete 11/23/16 18:00 Sputum Culture - Final Escherichia Coli Complete 11/23/16 18:00 Urine Catheterized Urine Urine Culture - Final NO GROWTH IN 48 HOURS. Complete Narrative Exam GENERAL: This is a 61-year-old male sitting up in bed. No distress noted. SKIN: Warm and dry. HEAD: Atraumatic. Normocephalic. EYES: PERRLA ENT: No nasal bleeding or discharge. Mucous membranes pink and moist. NECK: Trachea midline. No JVD. CARDIOVASCULAR: Regular rate and rhythm. RESPIRATORY: No accessory muscle use. Lungs are clear to auscultation. Breath sounds equal bilaterally. No distress or dyspnea. GASTROINTESTINAL: BS + x 4 quads. Abdomen soft, non-tender, nondistended. MUSCULOSKELETAL: Extremities without cyanosis, or edema. + peripheral pulses x 4 extremities. Warm with good capillary refill and sensation. MAEW. NEUROLOGICAL: Awake and alert. Answers questions in full sentences. 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 disturbance ICD Codes: S06.9X9S - Unspecified intracranial injury with loss of consciousness of unspecified duration, sequela; F02.80 - Dementia in other diseases classified elsewhere without behavioral disturbance Status: Acute (4) Dyspnea and respiratory abnormalities ICD Codes: R06.00 - Dyspnea, unspecified; R06.89 - Other abnormalities of breathing Status: Resolved (5) Pain, generalized ICD Codes: R52 - Pain, unspecified Status: Acute (6) Subdural hemorrhage ICD Codes: I62.00 - Nontraumatic subdural hemorrhage, unspecified Status: Acute (7) Brain contusion ICD Codes: S06.2X9A - Diffuse traumatic brain injury with loss of consciousness of unspecified duration, initial encounter Status: Acute (8) Skull fractures ICD Codes: S02.91XA - Unspecified fracture of skull, initial encounter for closed fracture Status: Acute (9) Status post craniectomy ICD Codes: Z98.890 - Other specified postprocedural states Status: Acute Assessment and Plan UPPER MATT[place]I: This is a 61-year-old male who was found down at home with an obvious scalp lac and raccoon eyes. GCS 5-6. Obtunded. He was intubated in the ED. + Cannabis. INJURIES: Skull fx SDH (temporal and parietal) LEFT cerebral contusions (w /compression of 4th ventricle) RIGHT temporal contusion LEFT parietal lobe contusion Procedures: 11/13: Intubated in the ED 11/13: Suboccipital craniectomy 11/24: BEDSIDE TRACH 11/25: Open jejunostomy placement 11/28: Ventric out 12/07: Downsized ULTRASOUND SONOGRAPHER to #6 12/08: Decannulated self 12/12: Pulled out own J-tube Consults: CCM. Neurosurgery. Palliative care. Speech therapy. Rehabilitation medicine. Ashley. Marcell nurse liaison. Case management. Diet: Regular soft diet. Tolerating po diet. Encourage good po intake with each meal. Megace. (Calorie count complete - however question accuracy as outside food sources being brought in for patient) continue to monitor Pulmonary: Encourage good pulmonary toileting. IS at bedside and pt encouraged to use. Rationale for use explained to patient, and verbalized understanding. Duo nebs. PAIN Management: Fentanyl patch 25 mcg. Percocet 5 mg q6h. Behavior: Trazadone 50 HS. Valproic 250 TID Activity: OOB. PT x 7 DAYS and BID and OT ordered. (cranial helmet) GI prophylaxis: Pepcid. Bowel regimen: Senna. MOM. Bisacodyl CT PRN. LBM: 12/15 DVT prophylaxis: Mechanical VTE with SCDs. Chemical management with Lovenox 30 BID SQ. DC Planning: Case management consulted for assistance with final discharge disposition. Patient does not have insurance, therefore placement has been difficult. However, patient has been progressing very well. He is now tolerating a po diet and has been ambulating. PT has been intensified to 7 days a week and BID to promote progress to discharge home. He may possibly be accepted at [facility] for a lambert bed is family can show that they can provide real time trader care for him at home upon discharge. Awaiting acceptance and further plan for discharge. Emotional support provided to patient and family at bedside and plan of care discussed. Discussed with RN at bedside. Patient is hemodynamically stable and being managed on the med/surg floor. The trauma team will round each day, and evaluate plan of care on a daily basis. Skull fx SDH, LEFT cerebral contusions RIGHT temporal contusion LEFT parietal lobe contusion Neurosurgery consulted and assisting in management and care 11/13: Suboccipital craniectomy with ventric placement 11/28: Ventriculostomy removed Trazodone 50 HS Valproic 250 TID for agitation/restlessness ST cognitive and swallow eval Toterating po Lovenox BID OOB QD- PT ordered x 7 days/ week Respiratory failure Supportive care 11/24: ULTRASOUND SONOGRAPHER placement 11/25: Open jejunostomy placement 12/07: Downsized ULTRASOUND SONOGRAPHER to #6 12/08: Self removed trach Oral care BID Suction PRN HTN Lopressor 25mg BID Hydralazine 25mg q8 Lasix 20mg QD KCl 20meq QD BP improved Self removed J-tube. 12/12: Patient self removed his J-tube Bumper has been removed by RN at bedside. Examined J-tube, and it appears to have been broken/cut as the balloon portion is missing He may have a retained portion of the J-tube internally. Discussed with RN to examine each of patient's stools for possible retained J- tube Monitor patient closely for obstruction If patient becomes distended - obtain stat KUB x-ray Notify Physician Remarks Patient seen and examined the nurse practitioner, overall stable, continue pain control DVT prophylaxis physical therapy Problem Qualifiers (1) Traumatic brain injury: (2) Brain contusion: Qualified Codes: S06.2X9A - Diffuse traumatic brain injury with loss of consciousness of unspecified duration, initial encounter (3) Skull fractures: Rose Marie Brennan Dec 17, 2016 10:23 Ayesha Brown MD Dec 17, 2016 17:22
--- NOTE | 2016-12-17 10:24 | HHI.PR ---
Subjective Subjective Notes PTD: 34 Patient sitting up in bed. Daughter at bedside. Patient states, "Hello, I'm doing okay. Thank you." No complaints offered. Objective Vitals/I&O Vital Signs Date Time Temp Pulse Resp B/P (MAP) Pulse Ox O2 Delivery O2 Flow Rate FiO2 12/17/16 08:00 98.1 74 16 127/78 (94) 98 Labs Date/Time Source Procedure Growth Status 11/24/16 06:00 Blood Peripheral Aerobic Blood Culture - Final NO GROWTH IN 5 DAYS Complete 11/24/16 06:00 Blood Peripheral Anaerobic Blood Culture - Final NO GROWTH IN 5 DAYS Complete 11/13/16 14:31 Cerebral Spinal Fluid Shunt Fluid Fungal Smear - Final NO FUNGAL ELEMENTS SEEN. Complete 11/13/16 14:31 Cerebral Spinal Fluid Shunt Fluid Fungal Culture - Final NO GROWTH IN 4 WEEKS Complete 11/23/16 18:00 Sputum Endotracheal Gram Stain - Final Complete 11/23/16 18:00 Sputum Culture - Final Escherichia Coli Complete 11/23/16 18:00 Urine Catheterized Urine Urine Culture - Final NO GROWTH IN 48 HOURS. Complete Narrative Exam GENERAL: This is a 61-year-old male sitting up in bed. No distress noted. SKIN: Warm and dry. HEAD: Atraumatic. Normocephalic. EYES: PERRLA ENT: No nasal bleeding or discharge. Mucous membranes pink and moist. NECK: Trachea midline. No JVD. CARDIOVASCULAR: Regular rate and rhythm. RESPIRATORY: No accessory muscle use. Lungs are clear to auscultation. Breath sounds equal bilaterally. No distress or dyspnea. GASTROINTESTINAL: BS + x 4 quads. Abdomen soft, non-tender, nondistended. MUSCULOSKELETAL: Extremities without cyanosis, or edema. + peripheral pulses x 4 extremities. Warm with good capillary refill and sensation. MAEW. NEUROLOGICAL: Awake and alert. Answers questions in full sentences. 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 disturbance ICD Codes: S06.9X9S - Unspecified intracranial injury with loss of consciousness of unspecified duration, sequela; F02.80 - Dementia in other diseases classified elsewhere without behavioral disturbance Status: Acute (4) Dyspnea and respiratory abnormalities ICD Codes: R06.00 - Dyspnea, unspecified; R06.89 - Other abnormalities of breathing Status: Resolved (5) Pain, generalized ICD Codes: R52 - Pain, unspecified Status: Acute (6) Subdural hemorrhage ICD Codes: I62.00 - Nontraumatic subdural hemorrhage, unspecified Status: Acute (7) Brain contusion ICD Codes: S06.2X9A - Diffuse traumatic brain injury with loss of consciousness of unspecified duration, initial encounter Status: Acute (8) Skull fractures ICD Codes: S02.91XA - Unspecified fracture of skull, initial encounter for closed fracture Status: Acute (9) Status post craniectomy ICD Codes: Z98.890 - Other specified postprocedural states Status: Acute Assessment and Plan IGIUGIG: This is a 61-year-old male who was found down at home with an obvious scalp lac and raccoon eyes. GCS 5-6. Obtunded. He was intubated in the ED. + Cannabis. INJURIES: Skull fx SDH (temporal and parietal) LEFT cerebral contusions (w /compression of 4th ventricle) RIGHT temporal contusion LEFT parietal lobe contusion Procedures: 11/13: Intubated in the ED 11/13: Suboccipital craniectomy 11/24: BEDSIDE TRACH 11/25: Open jejunostomy placement 11/28: Ventric out 12/07: Downsized BEAM DEPARTMENT SUPERVISOR to #6 12/08: Decannulated self 12/12: Pulled out own J-tube Consults: CCM. Neurosurgery. Palliative care. Speech therapy. Rehabilitation medicine. Ashley. Marcell nurse liaison. Case management. Diet: Regular soft diet. Tolerating po diet. Encourage good po intake with each meal. Megace. (Calorie count complete - however question accuracy as outside food sources being brought in for patient) continue to monitor Pulmonary: Encourage good pulmonary toileting. IS at bedside and pt encouraged to use. Rationale for use explained to patient, and verbalized understanding. Duo nebs. PAIN Management: Fentanyl patch 25 mcg. Percocet 5 mg q6h. Behavior: Trazadone 50 HS. Valproic 250 TID Activity: OOB. PT x 7 DAYS and BID and OT ordered. (cranial helmet) GI prophylaxis: Pepcid. Bowel regimen: Senna. MOM. Bisacodyl SD PRN. LBM: 12/15 DVT prophylaxis: Mechanical VTE with SCDs. Chemical management with Lovenox 30 BID SQ. DC Planning: Case management consulted for assistance with final discharge disposition. Patient does not have insurance, therefore placement has been difficult. However, patient has been progressing very well. He is now tolerating a po diet and has been ambulating. PT has been intensified to 7 days a week and BID to promote progress to discharge home. He may possibly be accepted at [facility] for a lambert bed is family can show that they can provide radio time buyer care for him at home upon discharge. Awaiting acceptance and further plan for discharge. Emotional support provided to patient and family at bedside and plan of care discussed. Discussed with RN at bedside. Patient is hemodynamically stable and being managed on the med/surg floor. The trauma team will round each day, and evaluate plan of care on a daily basis. Skull fx SDH, LEFT cerebral contusions RIGHT temporal contusion LEFT parietal lobe contusion Neurosurgery consulted and assisting in management and care 11/13: Suboccipital craniectomy with ventric placement 11/28: Ventriculostomy removed Trazodone 50 HS Valproic 250 TID for agitation/restlessness ST cognitive and swallow eval Toterating po Lovenox BID OOB QD- PT ordered x 7 days/ week Respiratory failure Supportive care 11/24: BEAM DEPARTMENT SUPERVISOR placement 11/25: Open jejunostomy placement 12/07: Downsized BEAM DEPARTMENT SUPERVISOR to #6 12/08: Self removed trach Oral care BID Suction PRN HTN Lopressor 25mg BID Hydralazine 25mg q8 Lasix 20mg QD KCl 20meq QD BP improved Self removed J-tube. 12/12: Patient self removed his J-tube Bumper has been removed by RN at bedside. Examined J-tube, and it appears to have been broken/cut as the balloon portion is missing He may have a retained portion of the J-tube internally. Discussed with RN to examine each of patient's stools for possible retained J- tube Monitor patient closely for obstruction If patient becomes distended - obtain stat KUB x-ray Notify Physician Remarks Patient seen and examined the nurse practitioner, overall stable, continue pain control DVT prophylaxis physical therapy Problem Qualifiers (1) Traumatic brain injury: (2) Brain contusion: Qualified Codes: S06.2X9A - Diffuse traumatic brain injury with loss of consciousness of unspecified duration, initial encounter (3) Skull fractures: Rose Marie Brennan Dec 17, 2016 10:23 Ayesha Brown MD Dec 17, 2016 17:22
[2016-12-17 12:00] VITALS: BP 105/60; PULSE 74; RESP 16; TEMP 97.5; O2SAT 98
--- NOTE | 2016-12-17 14:27 | HHI.HCPN ---
Reason for visit a. To assist with evaluation and management of symptoms including: Pain, dyspnea b. To assist medical decision maker(s) with: better understanding of current medical conditions; weighing benefits/burdens of medical treatment options; making medical treatment decisions. (Norma Goodrich) Subjective/Interval History This is a 61 year old male brought to [place] as a trauma alert under Trino [facility] 11/13/16, after being found down at home by family with an obvious scalp hematoma to the posterior part of his head, unconscious. He was emergently intubated in the ED and underwent left suboccipital craniectomy with evacuation of cerebellar hemorrhage and placement of a ventriculostomy catheter via a right frontal manas hole. Resting in bed today with his daughter at bedside. Daughter states he is showing improvement every day, however still does not remember the day of the event. Discharge planning in process. Discussed with Jen Hess, child welfare caseworker , and family is working on a discharge plan once patient completes his course of therapy at [facility]. Once discharge is in place patient can be transferred to [place] for short course rehabilitation. . Family/friend interactions Daughter states they are in process of looking for a home/apartment in [place] near the family for placement of both her father, and her grandmother, for whom her father had previously been the caregiver, as she has Alzheimer's dementia. Plan is to split the care between the sisters and a caregiver. Family is seeking alternatives and interviewing for caregiving staff. I discussed possible options to assist in the monitoring process and she was interested in hospice services information. At her request a consult was placed to hospice to provide information to the family for enrollment of either her father and/or her grandmother. Discussed with admission nurseMerced. . (Norma Goodrich) Advance Directives Living Will: Never completed Health Care Surrogate: Never completed Durable Power of Painter Apprentice: Never completed (Norma Goodrich) Objective Vital Signs Date Time Temp Pulse Resp B/P (MAP) Pulse Ox O2 Delivery O2 Flow Rate FiO2 12/17/16 12:00 97.5 74 16 105/60 (75) 98 12/17/16 08:00 98.1 74 16 127/78 (94) 98 12/17/16 00:00 96.7 66 17 125/77 (93) 100 12/16/16 20:00 97.7 84 17 115/73 (87) 99 12/16/16 16:00 98.0 61 16 149/74 (99) 99 Intake & Output 12/17/16 12/17/16 07:00 19:00 Intake Total 240 ml Balance 240 ml Intake Oral 240 ml # Voids 2 Physical Exam CONSTITUTIONAL/GENERAL: This is a thin middle-aged male, speech clear, slightly halting. TUBES/LINES/DRAINS: PIV x 1 CARDIOVASCULAR: Regular rate and rhythm without murmurs, gallops, or rubs. Peripheral pulses symmetric. RESPIRATORY/CHEST: Symmetric, unlabored respirations. Breath sounds clear to auscultation. On room air. GASTROINTESTINAL: Abdomen, flat, only light palpation secondary to tenderness. Positive bowel sounds present. J-tube clamped. Abdominal binder in place. GENITOURINARY: Without palpable bladder distension. MUSCULOSKELETAL: Extremities without clubbing, cyanosis, or edema. No mottling or clubbing. NEUROLOGICAL: Awake, alert, oriented to self. Impaired memory and recall PSYCHIATRIC: Calm, pleasant. . (Norma Goodrich) Diagnostic Tests Procedures 11/30/16- Ventriculostomy drain removed 11/25/16 - J-tube placed via open approach. 11/24/16 - tracheostomy placement 11/24/16 - attempted esophageal PEG placement, failed. 11/13/16 - intubation 11/13/16 - right frontal manas hole with placement of ventriculostomy catheter 11/13/16- left suboccipital craniectomy, evacuation of cerebellar hemorrhage. . 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 He currently works at [employer]. He speaks multiple languages to include Occitan, Spanish, British , [place] and [place]. He lives with his mother to provide care for her, as she has Alzheimer's dementia. Spiritual: He was raised Islam and would appreciate [facility] visits. Legal: He has 3 daughters who will serve as joint healthcare proxies. His mother has Alzheimer's dementia and is unable to participate in decision-making. Ethical issues impacting care: Circumstances surrounding patient's injury are not known, however, the [place] police are investigating and would like to speak with him regarding the circumstances once he is able to communicate. Important Contacts Susana Finn - [phone] Sloan Finn - [phone] Charlene Finn - [phone] . Prognosis Patient suffered an extensive head injury requiring right frontal manas hole with placement of ventriculostomy catheter. The patient also required intubation , mechanical ventilation, with subsequent tracheostomy. PT/OT have been optimizing the patient's therapy and he is now able to ambulate in the hallway. Discharge planning is in process and he should be discharged with home health some time next week. He will likely continue to have sequelae of severe head trauma requiring extensive rehabilitation. Code Status: Full Code Plan PLAN: Legal decision maker: He has 3 daughters, Sloan Briseno, Charlene Margaritarachel and Susana Margaritarachel Goals: Aggressive, at this time CODE STATUS: Full code SYMPTOMS: * Pain -Currently receiving fentanyl patch 25mcg q 72 hours. Patient is currently not showing any signs of pain at this time. He will require frequent nursing assessments to evaluate changes in posture, countenance for possible pain. He did remove his own J-tube which appears not to be intact as the balloon portion is missing. Patient being monitored for bowel obstruction secondary to J-tube fragment. No recommendations at this time. * Dyspnea -patient stable on room air. Decannulated, trachea healing. Summary: This is a 61-year-old male status post head trauma now extubated to room air. Due to his severe head trauma that he has some memory impairment as well as weakness from the injury and from prolonged hospitalization. [facility] has agreed to accept the patient pending a plan to discharge him safely from the family. Family is in process of creating that plan, hiring staff and finding a domicile to prepare for his discharge. Case management assisted Palliative care will continue to follow the patient during hospital course as condition evolves, to assist patient/decision-maker with understanding of their medical conditions, weighing benefits/burdens of treatment options, for clarification of goals of treatment. Additionally will assist with any symptoms of palliative concern (Norma Goodrich) Attestation To help prompt me to consider important information that might be impacting today's encounter and assessment, information from prior notes written by myself or my colleagues may have been "brought forward" into today's note. My signature on this note, however, is an attestation that I personally performed the exam, history, and/or decision-making noted today, and, unless otherwise indicated, the interactions with patient, family, and staff as well as the review of records all occurred today. I also attest that the listed assessment and stated plan reflect my best clinical judgment today based on the combination of historical information, prior notes, and today's exam/ interactions. When time spent is documented, it refers only to time spent today by the signer, or if indicated, combined time spent today by collaborating physician/nurse practitioner. . (Norma Goodrich) Collaborating MD Comments Chart reviewed. Case discussed with palliative care HOURLY ASSOCIATE. Above GRACE note reviewed and I concur. . (Per Jane MD) Norma Goodrich Dec 17, 2016 14:27 Per Jane MD Dec 17, 2016 17:39
--- NOTE | 2016-12-17 14:27 | HHI.HCPN ---
Reason for visit a. To assist with evaluation and management of symptoms including: Pain, dyspnea b. To assist medical decision maker(s) with: better understanding of current medical conditions; weighing benefits/burdens of medical treatment options; making medical treatment decisions. (Norma Goodrich) Subjective/Interval History This is a 61 year old male brought to [place] as a trauma alert under Trino [facility] 11/13/16, after being found down at home by family with an obvious scalp hematoma to the posterior part of his head, unconscious. He was emergently intubated in the ED and underwent left suboccipital craniectomy with evacuation of cerebellar hemorrhage and placement of a ventriculostomy catheter via a right frontal manas hole. Resting in bed today with his daughter at bedside. Daughter states he is showing improvement every day, however still does not remember the day of the event. Discharge planning in process. Discussed with Jen Hess, block and case maker , and family is working on a discharge plan once patient completes his course of therapy at [facility]. Once discharge is in place patient can be transferred to [place] for short course rehabilitation. . Family/friend interactions Daughter states they are in process of looking for a home/apartment in [place] near the family for placement of both her father, and her grandmother, for whom her father had previously been the caregiver, as she has Alzheimer's dementia. Plan is to split the care between the sisters and a caregiver. Family is seeking alternatives and interviewing for caregiving staff. I discussed possible options to assist in the monitoring process and she was interested in hospice services information. At her request a consult was placed to hospice to provide information to the family for enrollment of either her father and/or her grandmother. Discussed with admission nurseMerced. . (Norma Goodrich) Advance Directives Living Will: Never completed Health Care Surrogate: Never completed Durable Power of Director Online Marketing: Never completed (Norma Goodrich) Objective Vital Signs Date Time Temp Pulse Resp B/P (MAP) Pulse Ox O2 Delivery O2 Flow Rate FiO2 12/17/16 12:00 97.5 74 16 105/60 (75) 98 12/17/16 08:00 98.1 74 16 127/78 (94) 98 12/17/16 00:00 96.7 66 17 125/77 (93) 100 12/16/16 20:00 97.7 84 17 115/73 (87) 99 12/16/16 16:00 98.0 61 16 149/74 (99) 99 Intake & Output 12/17/16 12/17/16 07:00 19:00 Intake Total 240 ml Balance 240 ml Intake Oral 240 ml # Voids 2 Physical Exam CONSTITUTIONAL/GENERAL: This is a thin middle-aged male, speech clear, slightly halting. TUBES/LINES/DRAINS: PIV x 1 CARDIOVASCULAR: Regular rate and rhythm without murmurs, gallops, or rubs. Peripheral pulses symmetric. RESPIRATORY/CHEST: Symmetric, unlabored respirations. Breath sounds clear to auscultation. On room air. GASTROINTESTINAL: Abdomen, flat, only light palpation secondary to tenderness. Positive bowel sounds present. J-tube clamped. Abdominal binder in place. GENITOURINARY: Without palpable bladder distension. MUSCULOSKELETAL: Extremities without clubbing, cyanosis, or edema. No mottling or clubbing. NEUROLOGICAL: Awake, alert, oriented to self. Impaired memory and recall PSYCHIATRIC: Calm, pleasant. . (Norma Goodrich) Diagnostic Tests Procedures 11/30/16- Ventriculostomy drain removed 11/25/16 - J-tube placed via open approach. 11/24/16 - tracheostomy placement 11/24/16 - attempted esophageal PEG placement, failed. 11/13/16 - intubation 11/13/16 - right frontal manas hole with placement of ventriculostomy catheter 11/13/16- left suboccipital craniectomy, evacuation of cerebellar hemorrhage. . (Norma Goodrich) Assessment and Plan Disease Oriented Problem List: (1) Status post craniectomy (2) Traumatic brain injury (3) Skull fractures (4) Intracranial hemorrhage (5) Major neurocognitive disorder as late effect of traumatic brain injury without behavioral disturbance Symptom Scale: (1) Dyspnea and respiratory abnormalities 0-10 Scale: Unable to quantify (2) Pain, generalized 0-10 Scale: Unable to quantify Pertinent Non-Medical Issues Psychosocial:He was born in [place] and lived in many countries around the [place], moving to the [facility] in 1997 to settle in [place]. 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 He currently works at [employer]. He speaks multiple languages to include Yakut, Dominican, Portuguese , Israeli and Kinyarwanda. He lives with his mother to provide care for her, as she has Alzheimer's dementia. Spiritual: He was raised [employer]-Is[employer] and would appreciate [facility] visits. Legal: He has 3 daughters who will serve as joint healthcare proxies. His mother has Alzheimer's dementia and is unable to participate in decision-making. Ethical issues impacting care: Circumstances surrounding patient's injury are not known, however, the [place] police are investigating and would like to speak with him regarding the circumstances once he is able to communicate. Important Contacts Susana Finn - [phone] Sloan Finn - [phone] Charlene Finn - [phone] . Prognosis Patient suffered an extensive head injury requiring right frontal manas hole with placement of ventriculostomy catheter. The patient also required intubation , mechanical ventilation, with subsequent tracheostomy. PT/OT have been optimizing the patient's therapy and he is now able to ambulate in the hallway. Discharge planning is in process and he should be discharged with home health some time next week. He will likely continue to have sequelae of severe head trauma requiring extensive rehabilitation. Code Status: Full Code Plan PLAN: Legal decision maker: He has 3 daughters, Sloan Briseno, Charlene Margaritarachel and Susana Margaritarachel Goals: Aggressive, at this time CODE STATUS: Full code SYMPTOMS: * Pain -Currently receiving fentanyl patch 25mcg q 72 hours. Patient is currently not showing any signs of pain at this time. He will require frequent nursing assessments to evaluate changes in posture, countenance for possible pain. He did remove his own J-tube which appears not to be intact as the balloon portion is missing. Patient being monitored for bowel obstruction secondary to J-tube fragment. No recommendations at this time. * Dyspnea -patient stable on room air. Decannulated, trachea healing. Summary: This is a 61-year-old male status post head trauma now extubated to room air. Due to his severe head trauma that he has some memory impairment as well as weakness from the injury and from prolonged hospitalization. [facility] has agreed to accept the patient pending a plan to discharge him safely from the family. Family is in process of creating that plan, hiring staff and finding a domicile to prepare for his discharge. Case management assisted Palliative care will continue to follow the patient during hospital course as condition evolves, to assist patient/decision-maker with understanding of their medical conditions, weighing benefits/burdens of treatment options, for clarification of goals of treatment. Additionally will assist with any symptoms of palliative concern (Norma Goodrich) Attestation To help prompt me to consider important information that might be impacting today's encounter and assessment, information from prior notes written by myself or my colleagues may have been "brought forward" into today's note. My signature on this note, however, is an attestation that I personally performed the exam, history, and/or decision-making noted today, and, unless otherwise indicated, the interactions with patient, family, and staff as well as the review of records all occurred today. I also attest that the listed assessment and stated plan reflect my best clinical judgment today based on the combination of historical information, prior notes, and today's exam/ interactions. When time spent is documented, it refers only to time spent today by the signer, or if indicated, combined time spent today by collaborating physician/nurse practitioner. . (Norma Goodrich) Collaborating MD Comments Chart reviewed. Case discussed with palliative care BILINGUAL TEACHER. Above GRACE note reviewed and I concur. . (Per Jane MD) Norma Goodrich Dec 17, 2016 14:27 Per Jane MD Dec 17, 2016 17:39
--- NOTE | 2016-12-17 14:27 | HHI.HCPN ---
Reason for visit a. To assist with evaluation and management of symptoms including: Pain, dyspnea b. To assist medical decision maker(s) with: better understanding of current medical conditions; weighing benefits/burdens of medical treatment options; making medical treatment decisions. (Norma Goodrich) Subjective/Interval History This is a 61 year old male brought to [place] as a trauma alert under Trino Carlisle 11/13/16, after being found down at home by family with an obvious scalp hematoma to the posterior part of his head, unconscious. He was emergently intubated in the ED and underwent left suboccipital craniectomy with evacuation of cerebellar hemorrhage and placement of a ventriculostomy catheter via a right frontal manas hole. Resting in bed today with his daughter at bedside. Daughter states he is showing improvement every day, however still does not remember the day of the event. Discharge planning in process. Discussed with Jen Hess, family service caseworker , and family is working on a discharge plan once patient completes his course of therapy at [facility]. Once discharge is in place patient can be transferred to [place] for short course rehabilitation. . Family/friend interactions Daughter states they are in process of looking for a home/apartment in [place] near the family for placement of both her father, and her grandmother, for whom her father had previously been the caregiver, as she has Alzheimer's dementia. Plan is to split the care between the sisters and a caregiver. Family is seeking alternatives and interviewing for caregiving staff. I discussed possible options to assist in the monitoring process and she was interested in hospice services information. At her request a consult was placed to hospice to provide information to the family for enrollment of either her father and/or her grandmother. Discussed with admission nurseMerced. . (Norma Goodrich) Advance Directives Living Will: Never completed Health Care Surrogate: Never completed Durable Power of Public Address System Operator: Never completed (Norma Goodrich) Objective Vital Signs Date Time Temp Pulse Resp B/P (MAP) Pulse Ox O2 Delivery O2 Flow Rate FiO2 12/17/16 12:00 97.5 74 16 105/60 (75) 98 12/17/16 08:00 98.1 74 16 127/78 (94) 98 12/17/16 00:00 96.7 66 17 125/77 (93) 100 12/16/16 20:00 97.7 84 17 115/73 (87) 99 12/16/16 16:00 98.0 61 16 149/74 (99) 99 Intake & Output 12/17/16 12/17/16 07:00 19:00 Intake Total 240 ml Balance 240 ml Intake Oral 240 ml # Voids 2 Physical Exam CONSTITUTIONAL/GENERAL: This is a thin middle-aged male, speech clear, slightly halting. TUBES/LINES/DRAINS: PIV x 1 CARDIOVASCULAR: Regular rate and rhythm without murmurs, gallops, or rubs. Peripheral pulses symmetric. RESPIRATORY/CHEST: Symmetric, unlabored respirations. Breath sounds clear to auscultation. On room air. GASTROINTESTINAL: Abdomen, flat, only light palpation secondary to tenderness. Positive bowel sounds present. J-tube clamped. Abdominal binder in place. GENITOURINARY: Without palpable bladder distension. MUSCULOSKELETAL: Extremities without clubbing, cyanosis, or edema. No mottling or clubbing. NEUROLOGICAL: Awake, alert, oriented to self. Impaired memory and recall PSYCHIATRIC: Calm, pleasant. . (Norma Goodrich) Diagnostic Tests Procedures 11/30/16- Ventriculostomy drain removed 11/25/16 - J-tube placed via open approach. 11/24/16 - tracheostomy placement 11/24/16 - attempted esophageal PEG placement, failed. 11/13/16 - intubation 11/13/16 - right frontal manas hole with placement of ventriculostomy catheter 11/13/16- left suboccipital craniectomy, evacuation of cerebellar hemorrhage. . (Norma Goodrich) Assessment and Plan Disease Oriented Problem List: (1) Status post craniectomy (2) Traumatic brain injury (3) Skull fractures (4) Intracranial hemorrhage (5) Major neurocognitive disorder as late effect of traumatic brain injury without behavioral disturbance Symptom Scale: (1) Dyspnea and respiratory abnormalities 0-10 Scale: Unable to quantify (2) Pain, generalized 0-10 Scale: Unable to quantify Pertinent Non-Medical Issues Psychosocial:He was born in [place] and lived in many countries around the world, moving to the [facility] in 1997 to settle in [place]. 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 He currently works at [employer]. He speaks multiple languages to include Swedish, Ethiopian, Jamaican , Maltese and French. He lives with his mother to provide care for her, as she has Alzheimer's dementia. Spiritual: He was raised Shinto and would appreciate [facility] visits. Legal: He has 3 daughters who will serve as joint healthcare proxies. His mother has Alzheimer's dementia and is unable to participate in decision-making. Ethical issues impacting care: Circumstances surrounding patient's injury are not known, however, the [place] police are investigating and would like to speak with him regarding the circumstances once he is able to communicate. Important Contacts Susana Finn - [phone] Sloan Finn - [phone] Charlene Finn - [phone] . Prognosis Patient suffered an extensive head injury requiring right frontal manas hole with placement of ventriculostomy catheter. The patient also required intubation , mechanical ventilation, with subsequent tracheostomy. PT/OT have been optimizing the patient's therapy and he is now able to ambulate in the hallway. Discharge planning is in process and he should be discharged with home health some time next week. He will likely continue to have sequelae of severe head trauma requiring extensive rehabilitation. Code Status: Full Code Plan PLAN: Legal decision maker: He has 3 daughters, Sloan Briseno, Charlene Margaritarachel and Susana Margaritarachel Goals: Aggressive, at this time CODE STATUS: Full code SYMPTOMS: * Pain -Currently receiving fentanyl patch 25mcg q 72 hours. Patient is currently not showing any signs of pain at this time. He will require frequent nursing assessments to evaluate changes in posture, countenance for possible pain. He did remove his own J-tube which appears not to be intact as the balloon portion is missing. Patient being monitored for bowel obstruction secondary to J-tube fragment. No recommendations at this time. * Dyspnea -patient stable on room air. Decannulated, trachea healing. Summary: This is a 61-year-old male status post head trauma now extubated to room air. Due to his severe head trauma that he has some memory impairment as well as weakness from the injury and from prolonged hospitalization. [facility] has agreed to accept the patient pending a plan to discharge him safely from the family. Family is in process of creating that plan, hiring staff and finding a domicile to prepare for his discharge. Case management assisted Palliative care will continue to follow the patient during hospital course as condition evolves, to assist patient/decision-maker with understanding of their medical conditions, weighing benefits/burdens of treatment options, for clarification of goals of treatment. Additionally will assist with any symptoms of palliative concern (Norma Goodrich) Attestation To help prompt me to consider important information that might be impacting today's encounter and assessment, information from prior notes written by myself or my colleagues may have been "brought forward" into today's note. My signature on this note, however, is an attestation that I personally performed the exam, history, and/or decision-making noted today, and, unless otherwise indicated, the interactions with patient, family, and staff as well as the review of records all occurred today. I also attest that the listed assessment and stated plan reflect my best clinical judgment today based on the combination of historical information, prior notes, and today's exam/ interactions. When time spent is documented, it refers only to time spent today by the signer, or if indicated, combined time spent today by collaborating physician/nurse practitioner. . (Norma Goodrich) Collaborating MD Comments Chart reviewed. Case discussed with palliative care TRANSIT OPERATIONS SUPERVISOR. Above GRACE note reviewed and I concur. . (Per Jane MD) Norma Goodrich Dec 17, 2016 14:27 Per Jane MD Dec 17, 2016 17:39
[2016-12-17 16:00] VITALS: BP 131/75; PULSE 65; RESP 18; TEMP 97.4; O2SAT 100
[2016-12-17] MEDS: traZODone HCL 50 MG TAB PO SCH (20:24)
[2016-12-17] MEDS: MAGNESIUM HYDROXIDE SUSP 30 ML CUP PO SCH (20:24)
[2016-12-17 21:07] VITALS: BP 112/63; PULSE 89; RESP 20; O2SAT 98
[2016-12-18] MEDS: SODIUM CHLORIDE 1 GRAM TAB PO SCH ×4 (01:02→21:27)
[2016-12-18 04:47] LABS: AUTOMATED NEUTROPHIL # 3.2 TH/MM3 (1.8-7.7); BASOPHIL # 0.1 TH/MM3 (0-0.2); BASOPHIL % 0.8 % (0.0-2.0); EOSINOPHIL # 0.1 TH/MM3 (0-0.4); EOSINOPHIL % 0.8 % (0.0-4.0); HEMATOCRIT 32.7 % (39.0-51.0); HEMOGLOBIN 10.7 GM/DL (13.0-17.0); LYMPH % 41.7 % (9.0-44.0); LYMPHOCYTE # 3.2 TH/MM3 (1.0-4.8); MEAN CELL VOLUME 96.5 FL (80.0-100.0); MEAN CORPUSCULAR HEMOGLOBIN 31.5 PG (27.0-34.0); MEAN CORPUSCULAR HGB CONC 32.6 % (32.0-36.0); MONO % 14.9 % (0.0-8.0); MONOCYTE # 1.1 TH/MM3 (0-0.9); NEUT % 41.8 % (16.0-70.0); PLATELET COUNT 183 TH/MM3 (150-450); RED BLOOD COUNT 3.39 MIL/MM3 (4.50-5.90); RED CELL DISTRIBUTION WIDTH 15.7 % (11.6-17.2); WHITE BLOOD COUNT 7.7 TH/MM3 (4.0-11.0)
[2016-12-18 05:15] LABS: BICARBONATE 25.9 MEQ/L (21.0-32.0); CALCIUM 8.5 MG/DL (8.5-10.1); CREATININE 0.53 MG/DL (0.60-1.30)
[2016-12-18 07:56] VITALS: BP 140/79; PULSE 64; RESP 16; TEMP 97.5; O2SAT 99
--- NOTE | 2016-12-18 08:37 | HHI.PR ---
Neuropsych Emotional Emotional: Intact: Emotional, Anxious/Fearful, Depressed/Sad, Hostile/Resentful , Irritable/Angry/Frustrate, Labile, Constricted/Blunted Behavior Behavior: Intact: Coping/Acceptance, Cooperative w/ Treatment, Moderate: Impulsive/Agitated Cognitive Cognitive: Severe: Cognitive, Attention/Concentration, Confused/Orientation, Insight/Awareness, Judgement/Problem-Solving, Memory Psychosocial Psychosocial: Intact: Psychosocial, Family/Other Adjustment, Realistic Expectation, Unable to Asses: Self-Esteem/Confidence Progress Notes/Response to Tx Contents of Sessions: Adjustment, Level of Consciousness Time with Patient: 15 minutes Premorbid psychological status Premorbid Cognitive, Emotional and Behavioral Status: Stable. The patient is originally from [facility] and has a solid work history prior to this injury. The patient has no psychiatric difficulties, as described above. Substance abuse history is unremarkable. Behavioral Reactions of Patient and Family/Support System: Stable. The patient s family is experiencing ongoing issues of adjustment given the nature of the injury, and this aspect of recovery will require ongoing monitoring. Emotional/Behavioral Status of Patient and Family/Support System: Stable. Pertinent issues, if appropriate to this patients clinical care, are described in detail above. Maximizing acute care outcome It is recommended that the patient be monitored for emergent behavioral impulsivity as the medical condition evolves. This patients neuropathological challenges may limit their rehabilitation potential going forward, and these challenges will require specialized therapeutic skills to maximize outcome. Additionally, the patients family is experiencing ongoing issues of adjustment given the traumatic nature of the injury, and they will need ongoing psychological assistance. Anticipated Problems Ongoing areas of concern will include behavioral impulsivity, lack of insight and judgment, which is expected to improve with time and treatment. Presently , the patient remains intubated and sedated. Treatment Plan This clinician will continue to follow with you throughout the course of this patients acute care treatment, and I will be available to meet with the patient s family/support system to facilitate their understanding and the ongoing care of their family member. The goals of neuropsychological intervention shall be both educational and supportive to the family/support system as is deemed clinically appropriate. [facility] Level: V:Confused-non agitated Impression This is a 61 year old man s/p TBI 2T probable fall. Diagnosis: (1) Major neurocognitive disorder as late effect of traumatic brain injury without behavioral disturbance Status: Acute Progress Note Narrative Ongoing follow-up of patient seen during daily trauma rounds. This is day 35 post injury. The patient is gradually improving from a neurobehavioral standpoint, now conversant but still with significant impulsivity issues, but not agitation or restlessness. He has left visual neglect which compounds his impulsivity issues. He is [place] Discharge planning is as of yet unclear. Regardless, I will see the patient on an outpatient basis once he discharges. Johan Pierson PhD Dec 18, 2016 8:37 am
[2016-12-18] MEDS: VALPROIC ACID SYRUP 250 MG/5 ML UDC PO SCH ×3 (08:44→17:36)
[2016-12-18] MEDS: SENNOSIDES SYRUP 8.8 MG/5 ML CUP PO SCH (08:44)
[2016-12-18] MEDS: MEGESTROL ACETATE SUSP 400 MG/10 ML CUP PO SCH ×4 (08:45→21:26)
[2016-12-18] MEDS: FUROSEMIDE 40 MG/5 ML UNIT DOSE CUP PO SCH (08:45)
[2016-12-18] MEDS: METOPROLOL TARTRATE 25 MG TAB PO SCH ×2 (08:46→21:27)
[2016-12-18] MEDS: FAMOTIDINE 20 MG TAB PO SCH ×2 (08:46→21:27)
[2016-12-18] MEDS: hydrALAZINE HCL 25 MG TAB PO SCH ×2 (08:47→21:27)
[2016-12-18] MEDS: POTASSIUM CHLORIDE 25 MEQ EFFERVESCENT TAB NG SCH (08:47)
[2016-12-18] MEDS: ENOXAPARIN SODIUM 30 MG/0.3 ML SYRINGE SQ SCH ×2 (08:47→21:27)
[2016-12-18] MEDS: fentaNYL 25 MCG/HR PATCH T-DERMAL SCH (10:37)
[2016-12-18] MEDS: REMOVE OLD PATCH-FENTANYL T-DERMAL SCH (10:38)
--- NOTE | 2016-12-18 10:57 | HHI.PR ---
Subjective Subjective Notes PTD: 35 Patient in bed. No distress noted. No c/o. Objective Vitals/I&O Vital Signs Date Time Temp Pulse Resp B/P (MAP) Pulse Ox O2 Delivery O2 Flow Rate FiO2 12/18/16 07:56 97.5 64 16 140/79 (99) 99 Labs Laboratory Tests Test 12/18/16 04:12 White Blood Count 7.7 Red Blood Count 3.39 Hemoglobin 10.7 Hematocrit 32.7 Mean Corpuscular Volume 96.5 Mean Corpuscular Hemoglobin 31.5 Mean Corpuscular Hemoglobin Concent 32.6 Red Cell Distribution Width 15.7 Platelet Count 183 Mean Platelet Volume 10.0 Neutrophils (%) (Auto) 41.8 Lymphocytes (%) (Auto) 41.7 Monocytes (%) (Auto) 14.9 Eosinophils (%) (Auto) 0.8 Basophils (%) (Auto) 0.8 Neutrophils # (Auto) 3.2 Lymphocytes # (Auto) 3.2 Monocytes # (Auto) 1.1 Eosinophils # (Auto) 0.1 Basophils # (Auto) 0.1 CBC Comment DIFF FINAL Differential Comment Blood Urea Nitrogen 14 Creatinine 0.53 Random Glucose 89 Calcium Level 8.5 Sodium Level 139 Potassium Level 4.5 Chloride Level 105 Carbon Dioxide Level 25.9 Anion Gap 8 Estimat Glomerular Filtration Rate 159 Date/Time Source Procedure Growth Status 11/24/16 06:00 Blood Peripheral Aerobic Blood Culture - Final NO GROWTH IN 5 DAYS Complete 11/24/16 06:00 Blood Peripheral Anaerobic Blood Culture - Final NO GROWTH IN 5 DAYS Complete 11/13/16 14:31 Cerebral Spinal Fluid Shunt Fluid Fungal Smear - Final NO FUNGAL ELEMENTS SEEN. Complete 11/13/16 14:31 Cerebral Spinal Fluid Shunt Fluid Fungal Culture - Final NO GROWTH IN 4 WEEKS Complete 11/23/16 18:00 Sputum Endotracheal Gram Stain - Final Complete 11/23/16 18:00 Sputum Culture - Final Escherichia Coli Complete 11/23/16 18:00 Urine Catheterized Urine Urine Culture - Final NO GROWTH IN 48 HOURS. Complete Narrative Exam GENERAL: This is a 61-year-old male sitting up in bed. No distress noted. SKIN: Warm and dry. HEAD: Atraumatic. Normocephalic. EYES: PERRLA ENT: No nasal bleeding or discharge. Mucous membranes pink and moist. NECK: Trachea midline. No JVD. CARDIOVASCULAR: Regular rate and rhythm. RESPIRATORY: No accessory muscle use. Lungs are clear to auscultation. Breath sounds equal bilaterally. No distress or dyspnea. GASTROINTESTINAL: BS + x 4 quads. Abdomen soft, non-tender, nondistended. MUSCULOSKELETAL: Extremities without cyanosis, or edema. + peripheral pulses x 4 extremities. Warm with good capillary refill and sensation. MAEW. NEUROLOGICAL: Awake and alert. Answers questions in full sentences. 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 disturbance ICD Codes: S06.9X9S - Unspecified intracranial injury with loss of consciousness of unspecified duration, sequela; F02.80 - Dementia in other diseases classified elsewhere without behavioral disturbance Status: Acute (4) Dyspnea and respiratory abnormalities ICD Codes: R06.00 - Dyspnea, unspecified; R06.89 - Other abnormalities of breathing Status: Resolved (5) Pain, generalized ICD Codes: R52 - Pain, unspecified Status: Acute (6) Subdural hemorrhage ICD Codes: I62.00 - Nontraumatic subdural hemorrhage, unspecified Status: Acute (7) Brain contusion ICD Codes: S06.2X9A - Diffuse traumatic brain injury with loss of consciousness of unspecified duration, initial encounter Status: Acute (8) Skull fractures ICD Codes: S02.91XA - Unspecified fracture of skull, initial encounter for closed fracture Status: Acute (9) Status post craniectomy ICD Codes: Z98.890 - Other specified postprocedural states Status: Acute Assessment and Plan [place]: This is a 61-year-old male who was found down at home with an obvious scalp lac and raccoon eyes. GCS 5-6. Obtunded. He was intubated in the ED. + Cannabis. INJURIES: Skull fx SDH (temporal and parietal) LEFT cerebral contusions (w /compression of 4th ventricle) RIGHT temporal contusion LEFT parietal lobe contusion Procedures: 11/13: Intubated in the ED 11/13: Suboccipital craniectomy 11/24: BEDSIDE TRACH 11/25: Open jejunostomy placement 11/28: Ventric out 12/07: Downsized DIRECTOR RADIATION ONCOLOGY to #6 12/08: Decannulated self 12/12: Pulled out own J-tube Consults: CCM. Neurosurgery. Palliative care. Speech therapy. Rehabilitation medicine. Neuropsych. [place] nurse liaison. Case management. Diet: Regular soft diet. Tolerating po diet. Encourage good po intake with each meal. Megace. (Second Calorie count in place) continue to monitor Pulmonary: Encourage good pulmonary toileting. IS at bedside and pt encouraged to use. Rationale for use explained to patient, and verbalized understanding. Duo nebs. PAIN Management: Fentanyl patch 25 mcg. Percocet 5 mg q6h. Behavior: Trazadone 50 HS. Valproic 250 TID Activity: OOB. PT x 7 DAYS and BID and OT ordered. (cranial helmet) GI prophylaxis: Pepcid. Bowel regimen: Senna. MOM. Bisacodyl [place] PRN. LBM: 12/18 DVT prophylaxis: Mechanical VTE with SCDs. Chemical management with Lovenox 30 BID SQ. DC Planning: Case management consulted for assistance with final discharge disposition. Patient does not have insurance, therefore placement has been difficult. However, patient has been progressing very well. He is now tolerating a po diet and has been ambulating. PT has been intensified to 7 days a week and BID to promote progress to discharge home. He may possibly be accepted at [facility] for a lambert bed is family can show that they can provide time analysis clerk care for him at home upon discharge. Daughter states that they are closing on a new house for him. Emotional support provided to patient and family at bedside and plan of care discussed. Discussed with RN at bedside. Patient is hemodynamically stable and being managed on the med/surg floor. The trauma team will round each day, and evaluate plan of care on a daily basis. Skull fx SDH, LEFT cerebral contusions RIGHT temporal contusion LEFT parietal lobe contusion Neurosurgery consulted and assisting in management and care 11/13: Suboccipital craniectomy with ventric placement 11/28: Ventriculostomy removed Trazodone 50 HS Valproic 250 TID for agitation/restlessness ST cognitive and swallow eval Toterating po Lovenox BID OOB QD- PT ordered x 7 days/ week Respiratory failure Supportive care 11/24: DIRECTOR RADIATION ONCOLOGY placement 11/25: Open jejunostomy placement 12/07: Downsized DIRECTOR RADIATION ONCOLOGY to #6 12/08: Self removed trach Oral care BID Suction PRN HTN Lopressor 25mg BID Hydralazine 25mg q8 Lasix 20mg QD KCl 20meq QD BP improved Self removed J-tube. 12/12: Patient self removed his J-tube Bumper has been removed by RN at bedside. Examined J-tube, and it appears to have been broken/cut as the balloon portion is missing He may have a retained portion of the J-tube internally. Discussed with RN to examine each of patient's stools for possible retained J- tube Monitor patient closely for obstruction If patient becomes distended - obtain stat KUB x-ray Notify Physician Remarks seen and examined the nurse practitioner, mental status continues to improve, anticipate discharge to rehab next week Problem Qualifiers (1) Traumatic brain injury: (2) Brain contusion: Qualified Codes: S06.2X9A - Diffuse traumatic brain injury with loss of consciousness of unspecified duration, initial encounter (3) Skull fractures: Rose Marie Brennan Dec 18, 2016 10:57 Ayesha Brown MD Dec 18, 2016 17:46
--- NOTE | 2016-12-18 10:57 | HHI.PR ---
Subjective Subjective Notes PTD: 35 Patient in bed. No distress noted. No c/o. Objective Vitals/I&O Vital Signs Date Time Temp Pulse Resp B/P (MAP) Pulse Ox O2 Delivery O2 Flow Rate FiO2 12/18/16 07:56 97.5 64 16 140/79 (99) 99 Labs Laboratory Tests Test 12/18/16 04:12 White Blood Count 7.7 Red Blood Count 3.39 Hemoglobin 10.7 Hematocrit 32.7 Mean Corpuscular Volume 96.5 Mean Corpuscular Hemoglobin 31.5 Mean Corpuscular Hemoglobin Concent 32.6 Red Cell Distribution Width 15.7 Platelet Count 183 Mean Platelet Volume 10.0 Neutrophils (%) (Auto) 41.8 Lymphocytes (%) (Auto) 41.7 Monocytes (%) (Auto) 14.9 Eosinophils (%) (Auto) 0.8 Basophils (%) (Auto) 0.8 Neutrophils # (Auto) 3.2 Lymphocytes # (Auto) 3.2 Monocytes # (Auto) 1.1 Eosinophils # (Auto) 0.1 Basophils # (Auto) 0.1 CBC Comment DIFF FINAL Differential Comment Blood Urea Nitrogen 14 Creatinine 0.53 Random Glucose 89 Calcium Level 8.5 Sodium Level 139 Potassium Level 4.5 Chloride Level 105 Carbon Dioxide Level 25.9 Anion Gap 8 Estimat Glomerular Filtration Rate 159 Date/Time Source Procedure Growth Status 11/24/16 06:00 Blood Peripheral Aerobic Blood Culture - Final NO GROWTH IN 5 DAYS Complete 11/24/16 06:00 Blood Peripheral Anaerobic Blood Culture - Final NO GROWTH IN 5 DAYS Complete 11/13/16 14:31 Cerebral Spinal Fluid Shunt Fluid Fungal Smear - Final NO FUNGAL ELEMENTS SEEN. Complete 11/13/16 14:31 Cerebral Spinal Fluid Shunt Fluid Fungal Culture - Final NO GROWTH IN 4 WEEKS Complete 11/23/16 18:00 Sputum Endotracheal Gram Stain - Final Complete 11/23/16 18:00 Sputum Culture - Final Escherichia Coli Complete 11/23/16 18:00 Urine Catheterized Urine Urine Culture - Final NO GROWTH IN 48 HOURS. Complete Narrative Exam GENERAL: This is a 61-year-old male sitting up in bed. No distress noted. SKIN: Warm and dry. HEAD: Atraumatic. Normocephalic. EYES: PERRLA ENT: No nasal bleeding or discharge. Mucous membranes pink and moist. NECK: Trachea midline. No JVD. CARDIOVASCULAR: Regular rate and rhythm. RESPIRATORY: No accessory muscle use. Lungs are clear to auscultation. Breath sounds equal bilaterally. No distress or dyspnea. GASTROINTESTINAL: BS + x 4 quads. Abdomen soft, non-tender, nondistended. MUSCULOSKELETAL: Extremities without cyanosis, or edema. + peripheral pulses x 4 extremities. Warm with good capillary refill and sensation. MAEW. NEUROLOGICAL: Awake and alert. Answers questions in full sentences. 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 disturbance ICD Codes: S06.9X9S - Unspecified intracranial injury with loss of consciousness of unspecified duration, sequela; F02.80 - Dementia in other diseases classified elsewhere without behavioral disturbance Status: Acute (4) Dyspnea and respiratory abnormalities ICD Codes: R06.00 - Dyspnea, unspecified; R06.89 - Other abnormalities of breathing Status: Resolved (5) Pain, generalized ICD Codes: R52 - Pain, unspecified Status: Acute (6) Subdural hemorrhage ICD Codes: I62.00 - Nontraumatic subdural hemorrhage, unspecified Status: Acute (7) Brain contusion ICD Codes: S06.2X9A - Diffuse traumatic brain injury with loss of consciousness of unspecified duration, initial encounter Status: Acute (8) Skull fractures ICD Codes: S02.91XA - Unspecified fracture of skull, initial encounter for closed fracture Status: Acute (9) Status post craniectomy ICD Codes: Z98.890 - Other specified postprocedural states Status: Acute Assessment and Plan [place]: This is a 61-year-old male who was found down at home with an obvious scalp lac and raccoon eyes. GCS 5-6. Obtunded. He was intubated in the ED. + Cannabis. INJURIES: Skull fx SDH (temporal and parietal) LEFT cerebral contusions (w /compression of 4th ventricle) RIGHT temporal contusion LEFT parietal lobe contusion Procedures: 11/13: Intubated in the ED 11/13: Suboccipital craniectomy 11/24: BEDSIDE TRACH 11/25: Open jejunostomy placement 11/28: Ventric out 12/07: Downsized DIRECTOR OF STRATEGIC INITIATIVES to #6 12/08: Decannulated self 12/12: Pulled out own J-tube Consults: CCM. Neurosurgery. Palliative care. Speech therapy. Rehabilitation medicine. Neuropsych. [place] nurse liaison. Case management. Diet: Regular soft diet. Tolerating po diet. Encourage good po intake with each meal. Megace. (Second Calorie count in place) continue to monitor Pulmonary: Encourage good pulmonary toileting. IS at bedside and pt encouraged to use. Rationale for use explained to patient, and verbalized understanding. Duo nebs. PAIN Management: Fentanyl patch 25 mcg. Percocet 5 mg q6h. Behavior: Trazadone 50 HS. Valproic 250 TID Activity: OOB. PT x 7 DAYS and BID and OT ordered. (cranial helmet) GI prophylaxis: Pepcid. Bowel regimen: Senna. MOM. Bisacodyl [place] PRN. LBM: 12/18 DVT prophylaxis: Mechanical VTE with SCDs. Chemical management with Lovenox 30 BID SQ. DC Planning: Case management consulted for assistance with final discharge disposition. Patient does not have insurance, therefore placement has been difficult. However, patient has been progressing very well. He is now tolerating a po diet and has been ambulating. PT has been intensified to 7 days a week and BID to promote progress to discharge home. He may possibly be accepted at [facility] for a lambert bed is family can show that they can provide real time analyst care for him at home upon discharge. Daughter states that they are closing on a new house for him. Emotional support provided to patient and family at bedside and plan of care discussed. Discussed with RN at bedside. Patient is hemodynamically stable and being managed on the med/surg floor. The trauma team will round each day, and evaluate plan of care on a daily basis. Skull fx SDH, LEFT cerebral contusions RIGHT temporal contusion LEFT parietal lobe contusion Neurosurgery consulted and assisting in management and care 11/13: Suboccipital craniectomy with ventric placement 11/28: Ventriculostomy removed Trazodone 50 HS Valproic 250 TID for agitation/restlessness ST cognitive and swallow eval Toterating po Lovenox BID OOB QD- PT ordered x 7 days/ week Respiratory failure Supportive care 11/24: DIRECTOR OF STRATEGIC INITIATIVES placement 11/25: Open jejunostomy placement 12/07: Downsized DIRECTOR OF STRATEGIC INITIATIVES to #6 12/08: Self removed trach Oral care BID Suction PRN HTN Lopressor 25mg BID Hydralazine 25mg q8 Lasix 20mg QD KCl 20meq QD BP improved Self removed J-tube. 12/12: Patient self removed his J-tube Bumper has been removed by RN at bedside. Examined J-tube, and it appears to have been broken/cut as the balloon portion is missing He may have a retained portion of the J-tube internally. Discussed with RN to examine each of patient's stools for possible retained J- tube Monitor patient closely for obstruction If patient becomes distended - obtain stat KUB x-ray Notify Physician Remarks seen and examined the nurse practitioner, mental status continues to improve, anticipate discharge to rehab next week Problem Qualifiers (1) Traumatic brain injury: (2) Brain contusion: Qualified Codes: S06.2X9A - Diffuse traumatic brain injury with loss of consciousness of unspecified duration, initial encounter (3) Skull fractures: Rose Marie Brennan Dec 18, 2016 10:57 Ayesha Brown MD Dec 18, 2016 17:46
--- NOTE | 2016-12-18 10:57 | HHI.PR ---
Subjective Subjective Notes PTD: 35 Patient in bed. No distress noted. No c/o. Objective Vitals/I&O Vital Signs Date Time Temp Pulse Resp B/P (MAP) Pulse Ox O2 Delivery O2 Flow Rate FiO2 12/18/16 07:56 97.5 64 16 140/79 (99) 99 Labs Laboratory Tests Test 12/18/16 04:12 White Blood Count 7.7 Red Blood Count 3.39 Hemoglobin 10.7 Hematocrit 32.7 Mean Corpuscular Volume 96.5 Mean Corpuscular Hemoglobin 31.5 Mean Corpuscular Hemoglobin Concent 32.6 Red Cell Distribution Width 15.7 Platelet Count 183 Mean Platelet Volume 10.0 Neutrophils (%) (Auto) 41.8 Lymphocytes (%) (Auto) 41.7 Monocytes (%) (Auto) 14.9 Eosinophils (%) (Auto) 0.8 Basophils (%) (Auto) 0.8 Neutrophils # (Auto) 3.2 Lymphocytes # (Auto) 3.2 Monocytes # (Auto) 1.1 Eosinophils # (Auto) 0.1 Basophils # (Auto) 0.1 CBC Comment DIFF FINAL Differential Comment Blood Urea Nitrogen 14 Creatinine 0.53 Random Glucose 89 Calcium Level 8.5 Sodium Level 139 Potassium Level 4.5 Chloride Level 105 Carbon Dioxide Level 25.9 Anion Gap 8 Estimat Glomerular Filtration Rate 159 Date/Time Source Procedure Growth Status 11/24/16 06:00 Blood Peripheral Aerobic Blood Culture - Final NO GROWTH IN 5 DAYS Complete 11/24/16 06:00 Blood Peripheral Anaerobic Blood Culture - Final NO GROWTH IN 5 DAYS Complete 11/13/16 14:31 Cerebral Spinal Fluid Shunt Fluid Fungal Smear - Final NO FUNGAL ELEMENTS SEEN. Complete 11/13/16 14:31 Cerebral Spinal Fluid Shunt Fluid Fungal Culture - Final NO GROWTH IN 4 WEEKS Complete 11/23/16 18:00 Sputum Endotracheal Gram Stain - Final Complete 11/23/16 18:00 Sputum Culture - Final Escherichia Coli Complete 11/23/16 18:00 Urine Catheterized Urine Urine Culture - Final NO GROWTH IN 48 HOURS. Complete Narrative Exam GENERAL: This is a 61-year-old male sitting up in bed. No distress noted. SKIN: Warm and dry. HEAD: Atraumatic. Normocephalic. EYES: PERRLA ENT: No nasal bleeding or discharge. Mucous membranes pink and moist. NECK: Trachea midline. No JVD. CARDIOVASCULAR: Regular rate and rhythm. RESPIRATORY: No accessory muscle use. Lungs are clear to auscultation. Breath sounds equal bilaterally. No distress or dyspnea. GASTROINTESTINAL: BS + x 4 quads. Abdomen soft, non-tender, nondistended. MUSCULOSKELETAL: Extremities without cyanosis, or edema. + peripheral pulses x 4 extremities. Warm with good capillary refill and sensation. MAEW. NEUROLOGICAL: Awake and alert. Answers questions in full sentences. 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 disturbance ICD Codes: S06.9X9S - Unspecified intracranial injury with loss of consciousness of unspecified duration, sequela; F02.80 - Dementia in other diseases classified elsewhere without behavioral disturbance Status: Acute (4) Dyspnea and respiratory abnormalities ICD Codes: R06.00 - Dyspnea, unspecified; R06.89 - Other abnormalities of breathing Status: Resolved (5) Pain, generalized ICD Codes: R52 - Pain, unspecified Status: Acute (6) Subdural hemorrhage ICD Codes: I62.00 - Nontraumatic subdural hemorrhage, unspecified Status: Acute (7) Brain contusion ICD Codes: S06.2X9A - Diffuse traumatic brain injury with loss of consciousness of unspecified duration, initial encounter Status: Acute (8) Skull fractures ICD Codes: S02.91XA - Unspecified fracture of skull, initial encounter for closed fracture Status: Acute (9) Status post craniectomy ICD Codes: Z98.890 - Other specified postprocedural states Status: Acute Assessment and Plan [place]: This is a 61-year-old male who was found down at home with an obvious scalp lac and raccoon eyes. GCS 5-6. Obtunded. He was intubated in the ED. + Cannabis. INJURIES: Skull fx SDH (temporal and parietal) LEFT cerebral contusions (w /compression of 4th ventricle) RIGHT temporal contusion LEFT parietal lobe contusion Procedures: 11/13: Intubated in the ED 11/13: Suboccipital craniectomy 11/24: BEDSIDE TRACH 11/25: Open jejunostomy placement 11/28: Ventric out 12/07: Downsized FILTER TIP INSPECTOR to #6 12/08: Decannulated self 12/12: Pulled out own J-tube Consults: CCM. Neurosurgery. Palliative care. Speech therapy. Rehabilitation medicine. Neuropsych. [place] nurse liaison. Case management. Diet: Regular soft diet. Tolerating po diet. Encourage good po intake with each meal. Megace. (Second Calorie count in place) continue to monitor Pulmonary: Encourage good pulmonary toileting. IS at bedside and pt encouraged to use. Rationale for use explained to patient, and verbalized understanding. Duo nebs. PAIN Management: Fentanyl patch 25 mcg. Percocet 5 mg q6h. Behavior: Trazadone 50 HS. Valproic 250 TID Activity: OOB. PT x 7 DAYS and BID and OT ordered. (cranial helmet) GI prophylaxis: Pepcid. Bowel regimen: Senna. MOM. Bisacodyl [place] PRN. LBM: 12/18 DVT prophylaxis: Mechanical VTE with SCDs. Chemical management with Lovenox 30 BID SQ. DC Planning: Case management consulted for assistance with final discharge disposition. Patient does not have insurance, therefore placement has been difficult. However, patient has been progressing very well. He is now tolerating a po diet and has been ambulating. PT has been intensified to 7 days a week and BID to promote progress to discharge home. He may [facility] be [facility] at [facility] for a lambert [facility] is family can show that they can provide collection correspondent care for him at home upon discharge. Daughter states that they are closing on a new house for him. Emotional support provided to patient and family at bedside and plan of care discussed. Discussed with RN at bedside. Patient is hemodynamically stable and being managed on the med/surg floor. The trauma team will round each day, and evaluate plan of care on a daily basis. Skull fx SDH, LEFT cerebral contusions RIGHT temporal contusion LEFT parietal lobe contusion Neurosurgery consulted and assisting in management and care 11/13: Suboccipital craniectomy with ventric placement 11/28: Ventriculostomy removed Trazodone 50 HS Valproic 250 TID for agitation/restlessness ST cognitive and swallow eval Toterating po Lovenox BID OOB QD- PT ordered x 7 days/ week Respiratory failure Supportive care 11/24: FILTER TIP INSPECTOR placement 11/25: Open jejunostomy placement 12/07: Downsized FILTER TIP INSPECTOR to #6 12/08: Self removed trach Oral care BID Suction PRN HTN Lopressor 25mg BID Hydralazine 25mg q8 Lasix 20mg QD KCl 20meq QD BP improved Self removed J-tube. 12/12: Patient self removed his J-tube Bumper has been removed by RN at bedside. Examined J-tube, and it appears to have been broken/cut as the balloon portion is missing He may have a retained portion of the J-tube internally. Discussed with RN to examine each of patient's stools for possible retained J- tube Monitor patient closely for obstruction If patient becomes distended - obtain stat KUB x-ray Notify Physician Remarks seen and examined the nurse practitioner, mental status continues to improve, anticipate discharge to rehab next week Problem Qualifiers (1) Traumatic brain injury: (2) Brain contusion: Qualified Codes: S06.2X9A - Diffuse traumatic brain injury with loss of consciousness of unspecified duration, initial encounter (3) Skull fractures: Rose Marie Brennan Dec 18, 2016 10:57 Ayesha Brown MD Dec 18, 2016 17:46
[2016-12-18 12:00] VITALS: BP 101/58; PULSE 67; RESP 16; TEMP 98.5; O2SAT 99
[2016-12-18 16:00] VITALS: BP 118/76; PULSE 75; RESP 18; TEMP 97.8; O2SAT 95
[2016-12-18 20:00] VITALS: BP 117/61; PULSE 65; RESP 18; TEMP 98.6; O2SAT 98
[2016-12-18] MEDS: MAGNESIUM HYDROXIDE SUSP 30 ML CUP PO SCH (21:00)
[2016-12-18] MEDS: traZODone HCL 50 MG TAB PO SCH (21:27)
[2016-12-19] VITALS (7 sets, daily range): BP systolic 97–121; BP diastolic 52–76; PULSE 54–69; RESP 15–20; TEMP 97.9–99.3; O2SAT 95–99
[2016-12-19] MEDS: SODIUM CHLORIDE 1 GRAM TAB PO SCH ×4 (02:53→20:14)
[2016-12-19] MEDS: METOPROLOL TARTRATE 25 MG TAB PO SCH ×2 (09:00→20:14)
[2016-12-19] MEDS: hydrALAZINE HCL 25 MG TAB PO SCH ×2 (09:00→20:14)
[2016-12-19] MEDS: MEGESTROL ACETATE SUSP 400 MG/10 ML CUP PO SCH ×4 (09:17→20:14)
[2016-12-19] MEDS: SENNOSIDES SYRUP 8.8 MG/5 ML CUP PO SCH (09:17)
[2016-12-19] MEDS: FUROSEMIDE 40 MG/5 ML UNIT DOSE CUP PO SCH (09:17)
[2016-12-19] MEDS: VALPROIC ACID SYRUP 250 MG/5 ML UDC PO SCH ×3 (09:18→17:03)
[2016-12-19] MEDS: FAMOTIDINE 20 MG TAB PO SCH ×2 (09:18→20:14)
[2016-12-19] MEDS: POTASSIUM CHLORIDE 25 MEQ EFFERVESCENT TAB NG SCH (09:18)
[2016-12-19] MEDS: ENOXAPARIN SODIUM 30 MG/0.3 ML SYRINGE SQ SCH ×2 (09:19→20:13)
--- NOTE | 2016-12-19 10:20 | HHI.PR ---
Subjective Subjective Notes PTD: 37 Patient lying in bed. No distress noted. No complaints offered. Daughter at bedside. Objective Vitals/I&O Vital Signs Date Time Temp Pulse Resp B/P (MAP) Pulse Ox O2 Delivery O2 Flow Rate FiO2 12/19/16 08:00 99.0 56 15 100/60 (73) 98 Labs Date/Time Source Procedure Growth Status 11/24/16 06:00 Blood Peripheral Aerobic Blood Culture - Final NO GROWTH IN 5 DAYS Complete 11/24/16 06:00 Blood Peripheral Anaerobic Blood Culture - Final NO GROWTH IN 5 DAYS Complete 11/13/16 14:31 Cerebral Spinal Fluid Shunt Fluid Fungal Smear - Final NO FUNGAL ELEMENTS SEEN. Complete 11/13/16 14:31 Cerebral Spinal Fluid Shunt Fluid Fungal Culture - Final NO GROWTH IN 4 WEEKS Complete 11/23/16 18:00 Sputum Endotracheal Gram Stain - Final Complete 11/23/16 18:00 Sputum Culture - Final Escherichia Coli Complete 11/23/16 18:00 Urine Catheterized Urine Urine Culture - Final NO GROWTH IN 48 HOURS. Complete Narrative Exam GENERAL: This is a 61-year-old male sitting up in bed. No distress noted. Pleasant and cooperative. SKIN: Warm and dry. HEAD: Atraumatic. Normocephalic. EYES: PERRLA ENT: No nasal bleeding or discharge. Mucous membranes pink and moist. NECK: Trachea midline. No JVD. CARDIOVASCULAR: Regular rate and rhythm. RESPIRATORY: No accessory muscle use. Lungs are clear to auscultation. Breath sounds equal bilaterally. No distress or dyspnea. GASTROINTESTINAL: BS + x 4 quads. Abdomen soft, non-tender, nondistended. MUSCULOSKELETAL: Extremities without cyanosis, or edema. + peripheral pulses x 4 extremities. Warm with good capillary refill and sensation. MAEW. NEUROLOGICAL: Awake and alert. Normal speech and pattern. 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 disturbance ICD Codes: S06.9X9S - Unspecified intracranial injury with loss of consciousness of unspecified duration, sequela; F02.80 - Dementia in other diseases classified elsewhere without behavioral disturbance Status: Acute (4) Dyspnea and respiratory abnormalities ICD Codes: R06.00 - Dyspnea, unspecified; R06.89 - Other abnormalities of breathing Status: Resolved (5) Pain, generalized ICD Codes: R52 - Pain, unspecified Status: Acute (6) Subdural hemorrhage ICD Codes: I62.00 - Nontraumatic subdural hemorrhage, unspecified Status: Acute (7) Brain contusion ICD Codes: S06.2X9A - Diffuse traumatic brain injury with loss of consciousness of unspecified duration, initial encounter Status: Acute (8) Skull fractures ICD Codes: S02.91XA - Unspecified fracture of skull, initial encounter for closed fracture Status: Acute (9) Status post craniectomy ICD Codes: Z98.890 - Other specified postprocedural states Status: Acute Assessment and Plan [place]: This is a 61-year-old male who was found down at home with an obvious scalp lac and raccoon eyes. GCS 5-6. Obtunded. He was intubated in the ED. + Cannabis. INJURIES: Skull fx SDH (temporal and parietal) LEFT cerebral contusions (w /compression of 4th ventricle) RIGHT temporal contusion LEFT parietal lobe contusion Procedures: 11/13: Intubated in the ED 11/13: Suboccipital craniectomy 11/24: BEDSIDE TRACH 11/25: Open jejunostomy placement 11/28: Ventric out 12/07: Downsized COOK MORNING to #6 12/08: Decannulated self 12/12: Pulled out own J-tube Consults: [facility]. Neurosurgery. Palliative care. Speech therapy. Rehabilitation medicine. Neuropsych. Marcell nurse liaison. Case management. Diet: Regular soft diet. Tolerating po diet. Encourage good po intake with each meal. Megace. (Second Calorie count in place) continue to monitor Pulmonary: Encourage good pulmonary toileting. IS at bedside and pt encouraged to use. Rationale for use explained to patient, and verbalized understanding. Duo nebs. PAIN Management: Fentanyl patch 25 mcg. Percocet 5 mg q6h. Behavior: Trazadone 50 HS. Valproic 250 TID Activity: OOB. PT x 7 DAYS and BID and OT ordered. (cranial helmet) GI prophylaxis: Pepcid. Bowel regimen: Senna. MOM. Bisacodyl [place] PRN. LBM: 12/19 DVT prophylaxis: Mechanical VTE with SCDs. Chemical management with Lovenox 30 BID SQ. DC Planning: Case management consulted for assistance with final discharge disposition. Patient does not have insurance, therefore placement has been difficult. However, patient has been progressing very well. He is now tolerating a po diet and has been ambulating. PT has been intensified to 7 days a week and BID to promote progress to discharge home. He may possibly be accepted at [facility] for a lambert bed is family can show that they can provide night time babysitter care for him at home upon discharge. Daughter states that they are closing on a new house for him. Emotional support provided to patient and family at bedside and plan of care discussed. Discussed with RN at bedside. Patient is hemodynamically stable and being managed on the med/surg floor. The trauma team will round each day, and evaluate plan of care on a daily basis. Skull fx SDH, LEFT cerebral contusions RIGHT temporal contusion LEFT parietal lobe contusion Neurosurgery consulted and assisting in management and care 11/13: Suboccipital craniectomy with ventric placement 11/28: Ventriculostomy removed Trazodone 50 HS Valproic 250 TID for agitation/restlessness ST cognitive and swallow eval Toterating po Lovenox BID OOB QD- PT ordered x 7 days/ week Respiratory failure Supportive care 11/24: COOK MORNING placement 11/25: Open jejunostomy placement 12/07: Downsized COOK MORNING to #6 12/08: Self removed trach Oral care BID Suction PRN HTN Lopressor 25mg BID Hydralazine 25mg q8 Lasix 20mg QD KCl 20meq QD BP improved Problem Qualifiers (1) Traumatic brain injury: (2) Brain contusion: Qualified Codes: S06.2X9A - Diffuse traumatic brain injury with loss of consciousness of unspecified duration, initial encounter (3) Skull fractures: Rose Marie Brennan Dec 19, 2016 10:20
--- NOTE | 2016-12-19 10:20 | HHI.PR ---
Subjective Subjective Notes PTD: 37 Patient lying in bed. No distress noted. No complaints offered. Daughter at bedside. Objective Vitals/I&O Vital Signs Date Time Temp Pulse Resp B/P (MAP) Pulse Ox O2 Delivery O2 Flow Rate FiO2 12/19/16 08:00 99.0 56 15 100/60 (73) 98 Labs Date/Time Source Procedure Growth Status 11/24/16 06:00 Blood Peripheral Aerobic Blood Culture - Final NO GROWTH IN 5 DAYS Complete 11/24/16 06:00 Blood Peripheral Anaerobic Blood Culture - Final NO GROWTH IN 5 DAYS Complete 11/13/16 14:31 Cerebral Spinal Fluid Shunt Fluid Fungal Smear - Final NO FUNGAL ELEMENTS SEEN. Complete 11/13/16 14:31 Cerebral Spinal Fluid Shunt Fluid Fungal Culture - Final NO GROWTH IN 4 WEEKS Complete 11/23/16 18:00 Sputum Endotracheal Gram Stain - Final Complete 11/23/16 18:00 Sputum Culture - Final Escherichia Coli Complete 11/23/16 18:00 Urine Catheterized Urine Urine Culture - Final NO GROWTH IN 48 HOURS. Complete Narrative Exam GENERAL: This is a 61-year-old male sitting up in bed. No distress noted. Pleasant and cooperative. SKIN: Warm and dry. HEAD: Atraumatic. Normocephalic. EYES: PERRLA ENT: No nasal bleeding or discharge. Mucous membranes pink and moist. NECK: Trachea midline. No JVD. CARDIOVASCULAR: Regular rate and rhythm. RESPIRATORY: No accessory muscle use. Lungs are clear to auscultation. Breath sounds equal bilaterally. No distress or dyspnea. GASTROINTESTINAL: BS + x 4 quads. Abdomen soft, non-tender, nondistended. MUSCULOSKELETAL: Extremities without cyanosis, or edema. + peripheral pulses x 4 extremities. Warm with good capillary refill and sensation. MAEW. NEUROLOGICAL: Awake and alert. Normal speech and pattern. 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 disturbance ICD Codes: S06.9X9S - Unspecified intracranial injury with loss of consciousness of unspecified duration, sequela; F02.80 - Dementia in other diseases classified elsewhere without behavioral disturbance Status: Acute (4) Dyspnea and respiratory abnormalities ICD Codes: R06.00 - Dyspnea, unspecified; R06.89 - Other abnormalities of breathing Status: Resolved (5) Pain, generalized ICD Codes: R52 - Pain, unspecified Status: Acute (6) Subdural hemorrhage ICD Codes: I62.00 - Nontraumatic subdural hemorrhage, unspecified Status: Acute (7) Brain contusion ICD Codes: S06.2X9A - Diffuse traumatic brain injury with loss of consciousness of unspecified duration, initial encounter Status: Acute (8) Skull fractures ICD Codes: S02.91XA - Unspecified fracture of skull, initial encounter for closed fracture Status: Acute (9) Status post craniectomy ICD Codes: Z98.890 - Other specified postprocedural states Status: Acute Assessment and Plan [place]: This is a 61-year-old male who was found down at home with an obvious scalp lac and raccoon eyes. GCS 5-6. Obtunded. He was intubated in the ED. + Cannabis. INJURIES: Skull fx SDH (temporal and parietal) LEFT cerebral contusions (w /compression of 4th ventricle) RIGHT temporal contusion LEFT parietal lobe contusion Procedures: 11/13: Intubated in the ED 11/13: Suboccipital craniectomy 11/24: BEDSIDE TRACH 11/25: Open jejunostomy placement 11/28: Ventric out 12/07: Downsized PAPER CONSERVATOR to #6 12/08: Decannulated self 12/12: Pulled out own J-tube Consults: [facility]. Neurosurgery. Palliative care. Speech therapy. Rehabilitation medicine. Neuropsych. [place]cell nurse liaison. Case management. Diet: Regular soft diet. Tolerating po diet. Encourage good po intake with each meal. Megace. (Second Calorie count in place) continue to monitor Pulmonary: Encourage good pulmonary toileting. IS at bedside and pt encouraged to use. Rationale for use explained to patient, and verbalized understanding. Duo nebs. PAIN Management: Fentanyl patch 25 mcg. Percocet 5 mg q6h. Behavior: Trazadone 50 HS. Valproic 250 TID Activity: OOB. PT x 7 DAYS and BID and OT ordered. (cranial helmet) GI prophylaxis: Pepcid. Bowel regimen: Senna. MOM. Bisacodyl [place] PRN. LBM: 12/19 DVT prophylaxis: Mechanical VTE with SCDs. Chemical management with Lovenox 30 BID SQ. DC Planning: Case management consulted for assistance with final discharge disposition. Patient does not have insurance, therefore placement has been difficult. However, patient has been progressing very well. He is now tolerating a po diet and has been ambulating. PT has been intensified to 7 days a week and BID to promote progress to discharge home. He may [facility] be [facility] at [facility] for a lambert bed is family can show that they can provide signal timer care for him at home upon discharge. Daughter states that they are closing on a new house for him. Emotional support provided to patient and family at bedside and plan of care discussed. Discussed with RN at bedside. Patient is hemodynamically stable and being managed on the med/surg floor. The trauma team will round each day, and evaluate plan of care on a daily basis. Skull fx SDH, LEFT cerebral contusions RIGHT temporal contusion LEFT parietal lobe contusion Neurosurgery consulted and assisting in management and care 11/13: Suboccipital craniectomy with ventric placement 11/28: Ventriculostomy removed Trazodone 50 HS Valproic 250 TID for agitation/restlessness ST cognitive and swallow eval Toterating po Lovenox BID OOB QD- PT ordered x 7 days/ week Respiratory failure Supportive care 11/24: PAPER CONSERVATOR placement 11/25: Open jejunostomy placement 12/07: Downsized PAPER CONSERVATOR to #6 12/08: Self removed trach Oral care BID Suction PRN HTN Lopressor 25mg BID Hydralazine 25mg q8 Lasix 20mg QD KCl 20meq QD BP improved Problem Qualifiers (1) Traumatic brain injury: (2) Brain contusion: Qualified Codes: S06.2X9A - Diffuse traumatic brain injury with loss of consciousness of unspecified duration, initial encounter (3) Skull fractures: Rose Marie Brennan Dec 19, 2016 10:20
--- NOTE | 2016-12-19 10:20 | HHI.PR ---
Subjective Subjective Notes PTD: 37 Patient lying in bed. No distress noted. No complaints offered. Daughter at bedside. Objective Vitals/I&O Vital Signs Date Time Temp Pulse Resp B/P (MAP) Pulse Ox O2 Delivery O2 Flow Rate FiO2 12/19/16 08:00 99.0 56 15 100/60 (73) 98 Labs Date/Time Source Procedure Growth Status 11/24/16 06:00 Blood Peripheral Aerobic Blood Culture - Final NO GROWTH IN 5 DAYS Complete 11/24/16 06:00 Blood Peripheral Anaerobic Blood Culture - Final NO GROWTH IN 5 DAYS Complete 11/13/16 14:31 Cerebral Spinal Fluid Shunt Fluid Fungal Smear - Final NO FUNGAL ELEMENTS SEEN. Complete 11/13/16 14:31 Cerebral Spinal Fluid Shunt Fluid Fungal Culture - Final NO GROWTH IN 4 WEEKS Complete 11/23/16 18:00 Sputum Endotracheal Gram Stain - Final Complete 11/23/16 18:00 Sputum Culture - Final Escherichia Coli Complete 11/23/16 18:00 Urine Catheterized Urine Urine Culture - Final NO GROWTH IN 48 HOURS. Complete Narrative Exam GENERAL: This is a 61-year-old male sitting up in bed. No distress noted. Pleasant and cooperative. SKIN: Warm and dry. HEAD: Atraumatic. Normocephalic. EYES: PERRLA ENT: No nasal bleeding or discharge. Mucous membranes pink and moist. NECK: Trachea midline. No JVD. CARDIOVASCULAR: Regular rate and rhythm. RESPIRATORY: No accessory muscle use. Lungs are clear to auscultation. Breath sounds equal bilaterally. No distress or dyspnea. GASTROINTESTINAL: BS + x 4 quads. Abdomen soft, non-tender, nondistended. MUSCULOSKELETAL: Extremities without cyanosis, or edema. + peripheral pulses x 4 extremities. Warm with good capillary refill and sensation. MAEW. NEUROLOGICAL: Awake and alert. Normal speech and pattern. 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 disturbance ICD Codes: S06.9X9S - Unspecified intracranial injury with loss of consciousness of unspecified duration, sequela; F02.80 - Dementia in other diseases classified elsewhere without behavioral disturbance Status: Acute (4) Dyspnea and respiratory abnormalities ICD Codes: R06.00 - Dyspnea, unspecified; R06.89 - Other abnormalities of breathing Status: Resolved (5) Pain, generalized ICD Codes: R52 - Pain, unspecified Status: Acute (6) Subdural hemorrhage ICD Codes: I62.00 - Nontraumatic subdural hemorrhage, unspecified Status: Acute (7) Brain contusion ICD Codes: S06.2X9A - Diffuse traumatic brain injury with loss of consciousness of unspecified duration, initial encounter Status: Acute (8) Skull fractures ICD Codes: S02.91XA - Unspecified fracture of skull, initial encounter for closed fracture Status: Acute (9) Status post craniectomy ICD Codes: Z98.890 - Other specified postprocedural states Status: Acute Assessment and Plan [place]: This is a 61-year-old male who was found down at home with an obvious scalp lac and raccoon eyes. GCS 5-6. Obtunded. He was intubated in the ED. + Cannabis. INJURIES: Skull fx SDH (temporal and parietal) LEFT cerebral contusions (w /compression of 4th ventricle) RIGHT temporal contusion LEFT parietal lobe contusion Procedures: 11/13: Intubated in the ED 11/13: Suboccipital craniectomy 11/24: BEDSIDE TRACH 11/25: Open jejunostomy placement 11/28: Ventric out 12/07: Downsized MOBILE EQUIPMENT SERVICER to #6 12/08: Decannulated self 12/12: Pulled out own J-tube Consults: [facility]. Neurosurgery. Palliative care. Speech therapy. Rehabilitation medicine. Neuropsych. [place] nurse liaison. Case management. Diet: Regular soft diet. Tolerating po diet. Encourage good po intake with each meal. Megace. (Second Calorie count in place) continue to monitor Pulmonary: Encourage good pulmonary toileting. IS at bedside and pt encouraged to use. Rationale for use explained to patient, and verbalized understanding. Duo nebs. PAIN Management: Fentanyl patch 25 mcg. Percocet 5 mg q6h. Behavior: Trazadone 50 HS. Valproic 250 TID Activity: OOB. PT x 7 DAYS and BID and OT ordered. (cranial helmet) GI prophylaxis: Pepcid. Bowel regimen: Senna. MOM. Bisacodyl [place] PRN. LBM: 12/19 DVT prophylaxis: Mechanical VTE with SCDs. Chemical management with Lovenox 30 BID SQ. DC Planning: Case management consulted for assistance with final discharge disposition. Patient does not have insurance, therefore placement has been difficult. However, patient has been progressing very well. He is now tolerating a po diet and has been ambulating. PT has been intensified to 7 days a week and BID to promote progress to discharge home. He may possibly be accepted at [facility] for a lambert bed is family can show that they can provide time lock expert care for him at home upon discharge. Daughter states that they are closing on a new house for him. Emotional support provided to patient and family at bedside and plan of care discussed. Discussed with RN at bedside. Patient is hemodynamically stable and being managed on the med/surg floor. The trauma team will round each day, and evaluate plan of care on a daily basis. Skull fx SDH, LEFT cerebral contusions RIGHT temporal contusion LEFT parietal lobe contusion Neurosurgery consulted and assisting in management and care 11/13: Suboccipital craniectomy with ventric placement 11/28: Ventriculostomy removed Trazodone 50 HS Valproic 250 TID for agitation/restlessness ST cognitive and swallow eval Toterating po Lovenox BID OOB QD- PT ordered x 7 days/ week Respiratory failure Supportive care 11/24: MOBILE EQUIPMENT SERVICER placement 11/25: Open jejunostomy placement 12/07: Downsized MOBILE EQUIPMENT SERVICER to #6 12/08: Self removed trach Oral care BID Suction PRN HTN Lopressor 25mg BID Hydralazine 25mg q8 Lasix 20mg QD KCl 20meq QD BP improved Problem Qualifiers (1) Traumatic brain injury: (2) Brain contusion: Qualified Codes: S06.2X9A - Diffuse traumatic brain injury with loss of consciousness of unspecified duration, initial encounter (3) Skull fractures: Rose Marie Brennan Dec 19, 2016 10:20
[2016-12-19] MEDS: traZODone HCL 50 MG TAB PO SCH (20:14)
[2016-12-19] MEDS: MAGNESIUM HYDROXIDE SUSP 30 ML CUP PO SCH (20:14)
[2016-12-20] MEDS: SODIUM CHLORIDE 1 GRAM TAB PO SCH ×4 (02:09→21:10)
[2016-12-20] MEDS: VALPROIC ACID SYRUP 250 MG/5 ML UDC PO SCH ×3 (07:54→17:21)
[2016-12-20] MEDS: FAMOTIDINE 20 MG TAB PO SCH ×2 (07:54→21:09)
[2016-12-20] MEDS: POTASSIUM CHLORIDE 25 MEQ EFFERVESCENT TAB NG SCH (07:54)
[2016-12-20] MEDS: ENOXAPARIN SODIUM 30 MG/0.3 ML SYRINGE SQ SCH ×2 (07:54→21:09)
[2016-12-20] MEDS: SENNOSIDES SYRUP 8.8 MG/5 ML CUP PO SCH (07:55)
[2016-12-20] MEDS: FUROSEMIDE 40 MG/5 ML UNIT DOSE CUP PO SCH (07:55)
[2016-12-20] MEDS: MEGESTROL ACETATE SUSP 400 MG/10 ML CUP PO SCH ×4 (07:55→21:09)
[2016-12-20] MEDS: hydrALAZINE HCL 25 MG TAB PO SCH ×2 (07:55→21:09)
[2016-12-20] MEDS: METOPROLOL TARTRATE 25 MG TAB PO SCH ×2 (07:56→21:09)
[2016-12-20 08:00] VITALS: BP 117/77; PULSE 61; RESP 16; TEMP 96.9; O2SAT 99
[2016-12-20 12:00] VITALS: BP 115/75; PULSE 85; RESP 17; TEMP 97.3; O2SAT 100
--- NOTE | 2016-12-20 12:21 | HHI.PR ---
Subjective Subjective Notes PTD: 38 Pt is sound asleep on morning rounds. Daughter arrives to bedside. Objective Vitals/I&O Vital Signs Date Time Temp Pulse Resp B/P (MAP) Pulse Ox O2 Delivery O2 Flow Rate FiO2 12/20/16 12:00 97.3 85 17 115/75 (88) 100 Labs Date/Time Source Procedure Growth Status 11/24/16 06:00 Blood Peripheral Aerobic Blood Culture - Final NO GROWTH IN 5 DAYS Complete 11/24/16 06:00 Blood Peripheral Anaerobic Blood Culture - Final NO GROWTH IN 5 DAYS Complete 11/13/16 14:31 Cerebral Spinal Fluid Shunt Fluid Fungal Smear - Final NO FUNGAL ELEMENTS SEEN. Complete 11/13/16 14:31 Cerebral Spinal Fluid Shunt Fluid Fungal Culture - Final NO GROWTH IN 4 WEEKS Complete 11/23/16 18:00 Sputum Endotracheal Gram Stain - Final Complete 11/23/16 18:00 Sputum Culture - Final Escherichia Coli Complete 11/23/16 18:00 Urine Catheterized Urine Urine Culture - Final NO GROWTH IN 48 HOURS. Complete Narrative Exam GENERAL: This is a 61-year-old male asleep, No distress noted. SKIN: Warm and dry. HEAD: Atraumatic. Normocephalic. EYES: PERRLA ENT: No nasal bleeding or discharge. Mucous membranes pink and moist. NECK: Trachea midline. No JVD. CARDIOVASCULAR: Regular rate and rhythm. RESPIRATORY: No accessory muscle use. Lungs are clear to auscultation. Breath sounds equal bilaterally. No distress or dyspnea. GASTROINTESTINAL: BS + x 4 quads. Abdomen soft, non-tender, nondistended. MUSCULOSKELETAL: Extremities without cyanosis, or edema. + peripheral pulses x 4 extremities. Warm with good capillary refill and sensation. MAEW. NEUROLOGICAL: Asleep. 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 disturbance ICD Codes: S06.9X9S - Unspecified intracranial injury with loss of consciousness of unspecified duration, sequela; F02.80 - Dementia in other diseases classified elsewhere without behavioral disturbance Status: Acute (4) Dyspnea and respiratory abnormalities ICD Codes: R06.00 - Dyspnea, unspecified; R06.89 - Other abnormalities of breathing Status: Resolved (5) Pain, generalized ICD Codes: R52 - Pain, unspecified Status: Acute (6) Subdural hemorrhage ICD Codes: I62.00 - Nontraumatic subdural hemorrhage, unspecified Status: Acute (7) Brain contusion ICD Codes: S06.2X9A - Diffuse traumatic brain injury with loss of consciousness of unspecified duration, initial encounter Status: Acute (8) Skull fractures ICD Codes: S02.91XA - Unspecified fracture of skull, initial encounter for closed fracture Status: Acute (9) Status post craniectomy ICD Codes: Z98.890 - Other specified postprocedural states Status: Acute Assessment and Plan [place]: This is a 61-year-old male who was found down at home with an obvious scalp lac and raccoon eyes. GCS 5-6. Obtunded. He was intubated in the ED. + Cannabis. INJURIES: Skull fx SDH (temporal and parietal) LEFT cerebral contusions (w /compression of 4th ventricle) RIGHT temporal contusion LEFT parietal lobe contusion Procedures: 11/13: Intubated in the ED 11/13: Suboccipital craniectomy 11/24: BEDSIDE TRACH 11/25: Open jejunostomy placement 11/28: Ventric out 12/07: Downsized IMPLEMENTATION ANALYST to #6 12/08: Decannulated self 12/12: Pulled out own J-tube Consults: CCM. Neurosurgery. Palliative care. Speech therapy. Rehabilitation medicine. Neuropsych. Faith nurse liaison. Case management. Diet: Regular soft diet. Tolerating po diet. Encourage good po intake with each meal. Megace. (Second Calorie count in place) Continue to monitor Pulmonary: Encourage good pulmonary toileting. IS at bedside and pt encouraged to use. Rationale for use explained to patient, and verbalized understanding. Brannon neff. PAIN Management: Fentanyl patch 25 mcg. Percocet 5 mg q6h. Behavior: Trazadone 50 HS. Valproic 250 TID Activity: OOB. PT x 7 DAYS and BID and OT ordered. (cranial helmet) GI prophylaxis: Pepcid. Bowel regimen: Senna. MOM. Bisacodyl [place] PRN. LBM: 12/19 DVT prophylaxis: Mechanical VTE with SCDs. Chemical management with Lovenox 30 BID SQ. DC Planning: Case management consulted for assistance with final discharge disposition. Patient does not have insurance, therefore placement has been difficult. However, patient has been progressing very well. He is now tolerating a po diet and has been ambulating. PT has been intensified to 7 days a week and BID to promote progress to discharge home. He may possibly be accepted at [facility] for a lambert bed is family can show that they can provide time signal wirer care for him at home upon discharge. Daughter states that they are closing on a new house for him. Emotional support provided to patient and family at bedside and plan of care discussed. Discussed with RN at bedside. Patient is hemodynamically stable and being managed on the med/surg floor. The trauma team will round each day, and evaluate plan of care on a daily basis. Skull fx SDH, LEFT cerebral contusions RIGHT temporal contusion LEFT parietal lobe contusion Neurosurgery consulted and assisting in management and care 11/13: Suboccipital craniectomy with ventric placement 11/28: Ventriculostomy removed Trazodone 50 HS Valproic 250 TID for agitation/restlessness ST cognitive and swallow eval Toterating po Lovenox BID OOB QD- PT ordered x 7 days/ week Respiratory failure Supportive care 11/24: IMPLEMENTATION ANALYST placement 11/25: Open jejunostomy placement 12/07: Downsized IMPLEMENTATION ANALYST to #6 12/08: Self removed trach Oral care BID Suction PRN HTN Lopressor 25mg BID Hydralazine 25mg q8 Lasix 20mg QD KCl 20meq QD BP improved Problem Qualifiers (1) Traumatic brain injury: (2) Brain contusion: Qualified Codes: S06.2X9A - Diffuse traumatic brain injury with loss of consciousness of unspecified duration, initial encounter (3) Skull fractures: Rose Marie Brennan Dec 20, 2016 12:21
--- NOTE | 2016-12-20 12:21 | HHI.PR ---
Subjective Subjective Notes PTD: 38 Pt is sound asleep on morning rounds. Daughter arrives to bedside. Objective Vitals/I&O Vital Signs Date Time Temp Pulse Resp B/P (MAP) Pulse Ox O2 Delivery O2 Flow Rate FiO2 12/20/16 12:00 97.3 85 17 115/75 (88) 100 Labs Date/Time Source Procedure Growth Status 11/24/16 06:00 Blood Peripheral Aerobic Blood Culture - Final NO GROWTH IN 5 DAYS Complete 11/24/16 06:00 Blood Peripheral Anaerobic Blood Culture - Final NO GROWTH IN 5 DAYS Complete 11/13/16 14:31 Cerebral Spinal Fluid Shunt Fluid Fungal Smear - Final NO FUNGAL ELEMENTS SEEN. Complete 11/13/16 14:31 Cerebral Spinal Fluid Shunt Fluid Fungal Culture - Final NO GROWTH IN 4 WEEKS Complete 11/23/16 18:00 Sputum Endotracheal Gram Stain - Final Complete 11/23/16 18:00 Sputum Culture - Final Escherichia Coli Complete 11/23/16 18:00 Urine Catheterized Urine Urine Culture - Final NO GROWTH IN 48 HOURS. Complete Narrative Exam GENERAL: This is a 61-year-old male asleep, No distress noted. SKIN: Warm and dry. HEAD: Atraumatic. Normocephalic. EYES: PERRLA ENT: No nasal bleeding or discharge. Mucous membranes pink and moist. NECK: Trachea midline. No JVD. CARDIOVASCULAR: Regular rate and rhythm. RESPIRATORY: No accessory muscle use. Lungs are clear to auscultation. Breath sounds equal bilaterally. No distress or dyspnea. GASTROINTESTINAL: BS + x 4 quads. Abdomen soft, non-tender, nondistended. MUSCULOSKELETAL: Extremities without cyanosis, or edema. + peripheral pulses x 4 extremities. Warm with good capillary refill and sensation. MAEW. NEUROLOGICAL: Asleep. 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 disturbance ICD Codes: S06.9X9S - Unspecified intracranial injury with loss of consciousness of unspecified duration, sequela; F02.80 - Dementia in other diseases classified elsewhere without behavioral disturbance Status: Acute (4) Dyspnea and respiratory abnormalities ICD Codes: R06.00 - Dyspnea, unspecified; R06.89 - Other abnormalities of breathing Status: Resolved (5) Pain, generalized ICD Codes: R52 - Pain, unspecified Status: Acute (6) Subdural hemorrhage ICD Codes: I62.00 - Nontraumatic subdural hemorrhage, unspecified Status: Acute (7) Brain contusion ICD Codes: S06.2X9A - Diffuse traumatic brain injury with loss of consciousness of unspecified duration, initial encounter Status: Acute (8) Skull fractures ICD Codes: S02.91XA - Unspecified fracture of skull, initial encounter for closed fracture Status: Acute (9) Status post craniectomy ICD Codes: Z98.890 - Other specified postprocedural states Status: Acute Assessment and Plan [place]: This is a 61-year-old male who was found down at home with an obvious scalp lac and raccoon eyes. GCS 5-6. Obtunded. He was intubated in the ED. + Cannabis. INJURIES: Skull fx SDH (temporal and parietal) LEFT cerebral contusions (w /compression of 4th ventricle) RIGHT temporal contusion LEFT parietal lobe contusion Procedures: 11/13: Intubated in the ED 11/13: Suboccipital craniectomy 11/24: BEDSIDE TRACH 11/25: Open jejunostomy placement 11/28: Ventric out 12/07: Downsized METAL BUGGY OPERATOR to #6 12/08: Decannulated self 12/12: Pulled out own J-tube Consults: CCM. Neurosurgery. Palliative care. Speech therapy. Rehabilitation medicine. Neuropsych. Faith nurse liaison. Case management. Diet: Regular soft diet. Tolerating po diet. Encourage good po intake with each meal. Megace. (Second Calorie count in place) Continue to monitor Pulmonary: Encourage good pulmonary toileting. IS at bedside and pt encouraged to use. Rationale for use explained to patient, and verbalized understanding. Brannon neff. PAIN Management: Fentanyl patch 25 mcg. Percocet 5 mg q6h. Behavior: Trazadone 50 HS. Valproic 250 TID Activity: OOB. PT x 7 DAYS and BID and OT ordered. (cranial helmet) GI prophylaxis: Pepcid. Bowel regimen: Senna. MOM. Bisacodyl [place] PRN. LBM: 12/19 DVT prophylaxis: Mechanical VTE with SCDs. Chemical management with Lovenox 30 BID SQ. DC Planning: Case management consulted for assistance with final discharge disposition. Patient does not have insurance, therefore placement has been difficult. However, patient has been progressing very well. He is now tolerating a po diet and has been ambulating. PT has been intensified to 7 days a week and BID to promote progress to discharge home. He may possibly be accepted at [facility] for a lambert bed is family can show that they can provide full time staff interpreter care for him at home upon discharge. Daughter states that they are closing on a new house for him. Emotional support provided to patient and family at bedside and plan of care discussed. Discussed with RN at bedside. Patient is hemodynamically stable and being managed on the med/surg floor. The trauma team will round each day, and evaluate plan of care on a daily basis. Skull fx SDH, LEFT cerebral contusions RIGHT temporal contusion LEFT parietal lobe contusion Neurosurgery consulted and assisting in management and care 11/13: Suboccipital craniectomy with ventric placement 11/28: Ventriculostomy removed Trazodone 50 HS Valproic 250 TID for agitation/restlessness ST cognitive and swallow eval Toterating po Lovenox BID OOB QD- PT ordered x 7 days/ week Respiratory failure Supportive care 11/24: METAL BUGGY OPERATOR placement 11/25: Open jejunostomy placement 12/07: Downsized METAL BUGGY OPERATOR to #6 12/08: Self removed trach Oral care BID Suction PRN HTN Lopressor 25mg BID Hydralazine 25mg q8 Lasix 20mg QD KCl 20meq QD BP improved Problem Qualifiers (1) Traumatic brain injury: (2) Brain contusion: Qualified Codes: S06.2X9A - Diffuse traumatic brain injury with loss of consciousness of unspecified duration, initial encounter (3) Skull fractures: Rose Marie Brennan Dec 20, 2016 12:21
--- NOTE | 2016-12-20 12:21 | HHI.PR ---
Subjective Subjective Notes PTD: 38 Pt is sound asleep on morning rounds. Daughter arrives to bedside. Objective Vitals/I&O Vital Signs Date Time Temp Pulse Resp B/P (MAP) Pulse Ox O2 Delivery O2 Flow Rate FiO2 12/20/16 12:00 97.3 85 17 115/75 (88) 100 Labs Date/Time Source Procedure Growth Status 11/24/16 06:00 Blood Peripheral Aerobic Blood Culture - Final NO GROWTH IN 5 DAYS Complete 11/24/16 06:00 Blood Peripheral Anaerobic Blood Culture - Final NO GROWTH IN 5 DAYS Complete 11/13/16 14:31 Cerebral Spinal Fluid Shunt Fluid Fungal Smear - Final NO FUNGAL ELEMENTS SEEN. Complete 11/13/16 14:31 Cerebral Spinal Fluid Shunt Fluid Fungal Culture - Final NO GROWTH IN 4 WEEKS Complete 11/23/16 18:00 Sputum Endotracheal Gram Stain - Final Complete 11/23/16 18:00 Sputum Culture - Final Escherichia Coli Complete 11/23/16 18:00 Urine Catheterized Urine Urine Culture - Final NO GROWTH IN 48 HOURS. Complete Narrative Exam GENERAL: This is a 61-year-old male asleep, No distress noted. SKIN: Warm and dry. HEAD: Atraumatic. Normocephalic. EYES: PERRLA ENT: No nasal bleeding or discharge. Mucous membranes pink and moist. NECK: Trachea midline. No JVD. CARDIOVASCULAR: Regular rate and rhythm. RESPIRATORY: No accessory muscle use. Lungs are clear to auscultation. Breath sounds equal bilaterally. No distress or dyspnea. GASTROINTESTINAL: BS + x 4 quads. Abdomen soft, non-tender, nondistended. MUSCULOSKELETAL: Extremities without cyanosis, or edema. + peripheral pulses x 4 extremities. Warm with good capillary refill and sensation. MAEW. NEUROLOGICAL: Asleep. 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 disturbance ICD Codes: S06.9X9S - Unspecified intracranial injury with loss of consciousness of unspecified duration, sequela; F02.80 - Dementia in other diseases classified elsewhere without behavioral disturbance Status: Acute (4) Dyspnea and respiratory abnormalities ICD Codes: R06.00 - Dyspnea, unspecified; R06.89 - Other abnormalities of breathing Status: Resolved (5) Pain, generalized ICD Codes: R52 - Pain, unspecified Status: Acute (6) Subdural hemorrhage ICD Codes: I62.00 - Nontraumatic subdural hemorrhage, unspecified Status: Acute (7) Brain contusion ICD Codes: S06.2X9A - Diffuse traumatic brain injury with loss of consciousness of unspecified duration, initial encounter Status: Acute (8) Skull fractures ICD Codes: S02.91XA - Unspecified fracture of skull, initial encounter for closed fracture Status: Acute (9) Status post craniectomy ICD Codes: Z98.890 - Other specified postprocedural states Status: Acute Assessment and Plan [place]: This is a 61-year-old male who was found down at home with an obvious scalp lac and raccoon eyes. GCS 5-6. Obtunded. He was intubated in the ED. + Cannabis. INJURIES: Skull fx SDH (temporal and parietal) LEFT cerebral contusions (w /compression of 4th ventricle) RIGHT temporal contusion LEFT parietal lobe contusion Procedures: 11/13: Intubated in the ED 11/13: Suboccipital craniectomy 11/24: BEDSIDE TRACH 11/25: Open jejunostomy placement 11/28: Ventric out 12/07: Downsized CEMENT RAILROAD CAR LOADER to #6 12/08: Decannulated self 12/12: Pulled out own J-tube Consults: CCM. Neurosurgery. Palliative care. Speech therapy. Rehabilitation medicine. Neuropsych. Faith nurse liaison. Case management. Diet: Regular soft diet. Tolerating po diet. Encourage good po intake with each meal. Megace. (Second Calorie count in place) Continue to monitor Pulmonary: Encourage good pulmonary toileting. IS at bedside and pt encouraged to use. Rationale for use explained to patient, and verbalized understanding. Brannon neff. PAIN Management: Fentanyl patch 25 mcg. Percocet 5 mg q6h. Behavior: Trazadone 50 HS. Valproic 250 TID Activity: OOB. PT x 7 DAYS and BID and OT ordered. (cranial helmet) GI prophylaxis: Pepcid. Bowel regimen: Senna. MOM. Bisacodyl [place] PRN. LBM: 12/19 DVT prophylaxis: Mechanical VTE with SCDs. Chemical management with Lovenox 30 BID SQ. DC Planning: Case management consulted for assistance with final discharge disposition. Patient does not have insurance, therefore placement has been difficult. However, patient has been progressing very well. He is now tolerating a po diet and has been ambulating. PT has been intensified to 7 days a week and BID to promote progress to discharge home. He may possibly be accepted at [facility] for a lambert bed is family can show that they can provide multimedia developer care for him at home upon discharge. Daughter states that they are closing on a new house for him. Emotional support provided to patient and family at bedside and plan of care discussed. Discussed with RN at bedside. Patient is hemodynamically stable and being managed on the med/surg floor. The trauma team will round each day, and evaluate plan of care on a daily basis. Skull fx SDH, LEFT cerebral contusions RIGHT temporal contusion LEFT parietal lobe contusion Neurosurgery consulted and assisting in management and care 11/13: Suboccipital craniectomy with ventric placement 11/28: Ventriculostomy removed Trazodone 50 HS Valproic 250 TID for agitation/restlessness ST cognitive and swallow eval Toterating po Lovenox BID OOB QD- PT ordered x 7 days/ week Respiratory failure Supportive care 11/24: CEMENT RAILROAD CAR LOADER placement 11/25: Open jejunostomy placement 12/07: Downsized CEMENT RAILROAD CAR LOADER to #6 12/08: Self removed trach Oral care BID Suction PRN HTN Lopressor 25mg BID Hydralazine 25mg q8 Lasix 20mg QD KCl 20meq QD BP improved Problem Qualifiers (1) Traumatic brain injury: (2) Brain contusion: Qualified Codes: S06.2X9A - Diffuse traumatic brain injury with loss of consciousness of unspecified duration, initial encounter (3) Skull fractures: Rose Marie Brennan Dec 20, 2016 12:21
[2016-12-20 16:00] VITALS: BP 113/75; PULSE 64; RESP 17; TEMP 97.1; O2SAT 100
[2016-12-20 20:29] VITALS: BP 117/66; PULSE 68; RESP 18; TEMP 97.7; O2SAT 96
[2016-12-20] MEDS: MAGNESIUM HYDROXIDE SUSP 30 ML CUP PO SCH (21:08)
[2016-12-20] MEDS: traZODone HCL 50 MG TAB PO SCH (21:09)
[2016-12-20 23:44] VITALS: BP 106/64; PULSE 65; RESP 16; TEMP 98; O2SAT 97
[2016-12-21] MEDS: SODIUM CHLORIDE 1 GRAM TAB PO SCH ×4 (03:07→21:34)
[2016-12-21 08:00] VITALS: BP 122/65; PULSE 55; RESP 20; TEMP 96.9; O2SAT 99
--- NOTE | 2016-12-21 08:23 | HHI.PR ---
Neuropsych Behavior Behavior: Intact: Behavior, Coping/Acceptance, Cooperative w/ Treatment, Motivation, Frustration Tolerance/[place], Suicidal/Homicidal Risk, Moderate: Impulsive/Agitated Cognitive Cognitive: Moderate: Cognitive, Attention/Concentration, Confused/Orientation, Insight/Awareness, Judgement/Problem-Solving, Memory Psychosocial Psychosocial: Intact: Psychosocial, Family/Other Adjustment, Realistic Expectation, Unable to Asses: Self-Esteem/Confidence Progress Notes/Response to Tx Contents of Sessions: Adjustment, Level of Consciousness Time with Patient: 15 minutes Premorbid psychological status Premorbid Cognitive, Emotional and Behavioral Status: Stable. The patient is originally from [facility] and has a solid work history prior to this injury. The patient has no psychiatric difficulties, as described above. Substance abuse history is unremarkable. Behavioral Reactions of Patient and Family/Support System: Stable. The patient s family is experiencing ongoing issues of adjustment given the nature of the injury, and this aspect of recovery will require ongoing monitoring. Emotional/Behavioral Status of Patient and Family/Support System: Stable. Pertinent issues, if appropriate to this patients clinical care, are described in detail above. Maximizing acute care outcome It is recommended that the patient be monitored for emergent behavioral impulsivity as the medical condition evolves. This patients neuropathological challenges may limit their rehabilitation potential going forward, and these challenges will require specialized therapeutic skills to maximize outcome. Additionally, the patients family is experiencing ongoing issues of adjustment given the traumatic nature of the injury, and they will need ongoing psychological assistance. Anticipated Problems Ongoing areas of concern will include behavioral impulsivity, lack of insight and judgment, which is expected to improve with time and treatment. Presently , the patient remains intubated and sedated. Treatment Plan This clinician will continue to follow with you throughout the course of this patients acute care treatment, and I will be available to meet with the patient s family/support system to facilitate their understanding and the ongoing care of their family member. The goals of neuropsychological intervention shall be both educational and supportive to the family/support system as is deemed clinically appropriate. [facility] Level: V:Confused-non agitated Impression This is a 61 year old man s/p TBI 2T probable fall. Diagnosis: (1) Major neurocognitive disorder as late effect of traumatic brain injury without behavioral disturbance Status: Acute Progress Note Narrative Ongoing follow-up of patient seen during daily trauma rounds. This is day 38 post injury. The patient continues to make neurobehavioral improvements, he is somewhat impulsive and exacerbated by left visual neglect, but otherwise compliant with instructions. He is [place] He remains on Valproic Acid 250 TID and Trazodone 50 HS. I will continue to follow. Johan Pierson PhD Dec 21, 2016 8:23 am
[2016-12-21] MEDS: ENOXAPARIN SODIUM 30 MG/0.3 ML SYRINGE SQ SCH ×2 (08:34→21:33)
[2016-12-21] MEDS: SENNOSIDES SYRUP 8.8 MG/5 ML CUP PO SCH (08:35)
[2016-12-21] MEDS: MEGESTROL ACETATE SUSP 400 MG/10 ML CUP PO SCH ×4 (08:35→21:33)
[2016-12-21] MEDS: FUROSEMIDE 40 MG/5 ML UNIT DOSE CUP PO SCH (08:36)
[2016-12-21] MEDS: FAMOTIDINE 20 MG TAB PO SCH ×2 (08:36→21:35)
[2016-12-21] MEDS: POTASSIUM CHLORIDE 25 MEQ EFFERVESCENT TAB NG SCH (08:36)
[2016-12-21] MEDS: hydrALAZINE HCL 25 MG TAB PO SCH ×2 (08:36→21:35)
[2016-12-21] MEDS: METOPROLOL TARTRATE 25 MG TAB PO SCH ×2 (08:36→21:00)
[2016-12-21] MEDS: VALPROIC ACID SYRUP 250 MG/5 ML UDC PO SCH ×3 (08:36→16:54)
--- NOTE | 2016-12-21 10:26 | HHI.PR ---
Subjective Subjective Notes PTD: 39 Patient asleep. Daughter asleep in recliner chair at bedside. Objective Vitals/I&O Vital Signs Date Time Temp Pulse Resp B/P (MAP) Pulse Ox O2 Delivery O2 Flow Rate FiO2 12/21/16 08:00 96.9 55 20 122/65 (84) 99 Labs Date/Time Source Procedure Growth Status 11/24/16 06:00 Blood Peripheral Aerobic Blood Culture - Final NO GROWTH IN 5 DAYS Complete 11/24/16 06:00 Blood Peripheral Anaerobic Blood Culture - Final NO GROWTH IN 5 DAYS Complete 11/13/16 14:31 Cerebral Spinal Fluid Shunt Fluid Fungal Smear - Final NO FUNGAL ELEMENTS SEEN. Complete 11/13/16 14:31 Cerebral Spinal Fluid Shunt Fluid Fungal Culture - Final NO GROWTH IN 4 WEEKS Complete 11/23/16 18:00 Sputum Endotracheal Gram Stain - Final Complete 11/23/16 18:00 Sputum Culture - Final Escherichia Coli Complete 11/23/16 18:00 Urine Catheterized Urine Urine Culture - Final NO GROWTH IN 48 HOURS. Complete Narrative Exam GENERAL: This is a 61-year-old male asleep, No distress noted. SKIN: Warm and dry. HEAD: Atraumatic. Normocephalic. EYES: PERRLA ENT: No nasal bleeding or discharge. Mucous membranes pink and moist. NECK: Trachea midline. No JVD. CARDIOVASCULAR: Regular rate and rhythm. RESPIRATORY: No accessory muscle use. Lungs are clear to auscultation. Breath sounds equal bilaterally. No distress or dyspnea. GASTROINTESTINAL: BS + x 4 quads. Abdomen soft, non-tender, nondistended. MUSCULOSKELETAL: Extremities without cyanosis, or edema. + peripheral pulses x 4 extremities. Warm with good capillary refill and sensation. MAEW. NEUROLOGICAL: Asleep. 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 disturbance ICD Codes: S06.9X9S - Unspecified intracranial injury with loss of consciousness of unspecified duration, sequela; F02.80 - Dementia in other diseases classified elsewhere without behavioral disturbance Status: Acute (4) Dyspnea and respiratory abnormalities ICD Codes: R06.00 - Dyspnea, unspecified; R06.89 - Other abnormalities of breathing Status: Resolved (5) Pain, generalized ICD Codes: R52 - Pain, unspecified Status: Acute (6) Subdural hemorrhage ICD Codes: I62.00 - Nontraumatic subdural hemorrhage, unspecified Status: Acute (7) Brain contusion ICD Codes: S06.2X9A - Diffuse traumatic brain injury with loss of consciousness of unspecified duration, initial encounter Status: Acute (8) Skull fractures ICD Codes: S02.91XA - Unspecified fracture of skull, initial encounter for closed fracture Status: Acute (9) Status post craniectomy ICD Codes: Z98.890 - Other specified postprocedural states Status: Acute Assessment and Plan [place]: This is a 61-year-old male who was found down at home with an obvious scalp lac and raccoon eyes. GCS 5-6. Obtunded. He was intubated in the ED. + Cannabis. INJURIES: Skull fx SDH (temporal and parietal) LEFT cerebral contusions (w /compression of 4th ventricle) RIGHT temporal contusion LEFT parietal lobe contusion Procedures: 11/13: Intubated in the ED 11/13: Suboccipital craniectomy 11/24: BEDSIDE TRACH 11/25: Open jejunostomy placement 11/28: Ventric out 12/07: Downsized FAN BALANCER to #6 12/08: Decannulated self 12/12: Pulled out own J-tube Consults: CCM. Neurosurgery. Palliative care. Speech therapy. Rehabilitation medicine. Neuropsych. Marcell nurse liaison. Case management. Diet: Regular soft diet. Tolerating po diet. Encourage good po intake with each meal. Megace. (Second Calorie count in place) Continue to monitor Pulmonary: Encourage good pulmonary toileting. IS at bedside and pt encouraged to use. Rationale for use explained to patient, and verbalized understanding. Brannon neff. PAIN Management: Fentanyl patch 25 mcg. Percocet 5 mg q6h. Behavior: Trazadone 50 HS. Valproic 250 TID Activity: OOB. PT x 7 DAYS and BID and OT ordered. (cranial helmet) GI prophylaxis: Pepcid. Bowel regimen: Senna. MOM. Bisacodyl [place] PRN. LBM: 12/19 DVT prophylaxis: Mechanical VTE with SCDs. Chemical management with Lovenox 30 BID SQ. DC Planning: Case management consulted for assistance with final discharge disposition. Patient does not have insurance, therefore placement has been difficult. However, patient has been progressing very well. He is now tolerating a po diet and has been ambulating. PT has been intensified to 7 days a week and BID to promote progress to discharge home. He may possibly be accepted at [facility] for a lambert bed is family can show that they can provide multimedia manager care for him at home upon discharge. Daughter states that they are closing on a new house for him. Emotional support provided to patient and family at bedside and plan of care discussed. Discussed with RN at bedside. Patient is hemodynamically stable and being managed on the med/surg floor. The trauma team will round each day, and evaluate plan of care on a daily basis. Skull fx SDH, LEFT cerebral contusions RIGHT temporal contusion LEFT parietal lobe contusion Neurosurgery consulted and assisting in management and care 11/13: Suboccipital craniectomy with ventric placement 11/28: Ventriculostomy removed Trazodone 50 HS Valproic 250 TID for agitation/restlessness ST cognitive and swallow eval Toterating po Lovenox BID OOB QD- PT ordered x 7 days/ week Respiratory failure Supportive care 11/24: FAN BALANCER placement 11/25: Open jejunostomy placement 12/07: Downsized FAN BALANCER to #6 12/08: Self removed trach Oral care BID Suction PRN HTN Lopressor 25mg BID Hydralazine 25mg q8 Lasix 20mg QD KCl 20meq QD BP improved Problem Qualifiers (1) Traumatic brain injury: (2) Brain contusion: Qualified Codes: S06.2X9A - Diffuse traumatic brain injury with loss of consciousness of unspecified duration, initial encounter (3) Skull fractures: Rose Marie Brennan Dec 21, 2016 10:26
--- NOTE | 2016-12-21 10:26 | HHI.PR ---
Subjective Subjective Notes PTD: 39 Patient asleep. Daughter asleep in recliner chair at bedside. Objective Vitals/I&O Vital Signs Date Time Temp Pulse Resp B/P (MAP) Pulse Ox O2 Delivery O2 Flow Rate FiO2 12/21/16 08:00 96.9 55 20 122/65 (84) 99 Labs Date/Time Source Procedure Growth Status 11/24/16 06:00 Blood Peripheral Aerobic Blood Culture - Final NO GROWTH IN 5 DAYS Complete 11/24/16 06:00 Blood Peripheral Anaerobic Blood Culture - Final NO GROWTH IN 5 DAYS Complete 11/13/16 14:31 Cerebral Spinal Fluid Shunt Fluid Fungal Smear - Final NO FUNGAL ELEMENTS SEEN. Complete 11/13/16 14:31 Cerebral Spinal Fluid Shunt Fluid Fungal Culture - Final NO GROWTH IN 4 WEEKS Complete 11/23/16 18:00 Sputum Endotracheal Gram Stain - Final Complete 11/23/16 18:00 Sputum Culture - Final Escherichia Coli Complete 11/23/16 18:00 Urine Catheterized Urine Urine Culture - Final NO GROWTH IN 48 HOURS. Complete Narrative Exam GENERAL: This is a 61-year-old male asleep, No distress noted. SKIN: Warm and dry. HEAD: Atraumatic. Normocephalic. EYES: PERRLA ENT: No nasal bleeding or discharge. Mucous membranes pink and moist. NECK: Trachea midline. No JVD. CARDIOVASCULAR: Regular rate and rhythm. RESPIRATORY: No accessory muscle use. Lungs are clear to auscultation. Breath sounds equal bilaterally. No distress or dyspnea. GASTROINTESTINAL: BS + x 4 quads. Abdomen soft, non-tender, nondistended. MUSCULOSKELETAL: Extremities without cyanosis, or edema. + peripheral pulses x 4 extremities. Warm with good capillary refill and sensation. MAEW. NEUROLOGICAL: Asleep. 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 disturbance ICD Codes: S06.9X9S - Unspecified intracranial injury with loss of consciousness of unspecified duration, sequela; F02.80 - Dementia in other diseases classified elsewhere without behavioral disturbance Status: Acute (4) Dyspnea and respiratory abnormalities ICD Codes: R06.00 - Dyspnea, unspecified; R06.89 - Other abnormalities of breathing Status: Resolved (5) Pain, generalized ICD Codes: R52 - Pain, unspecified Status: Acute (6) Subdural hemorrhage ICD Codes: I62.00 - Nontraumatic subdural hemorrhage, unspecified Status: Acute (7) Brain contusion ICD Codes: S06.2X9A - Diffuse traumatic brain injury with loss of consciousness of unspecified duration, initial encounter Status: Acute (8) Skull fractures ICD Codes: S02.91XA - Unspecified fracture of skull, initial encounter for closed fracture Status: Acute (9) Status post craniectomy ICD Codes: Z98.890 - Other specified postprocedural states Status: Acute Assessment and Plan [place]: This is a 61-year-old male who was found down at home with an obvious scalp lac and raccoon eyes. GCS 5-6. Obtunded. He was intubated in the ED. + Cannabis. INJURIES: Skull fx SDH (temporal and parietal) LEFT cerebral contusions (w /compression of 4th ventricle) RIGHT temporal contusion LEFT parietal lobe contusion Procedures: 11/13: Intubated in the ED 11/13: Suboccipital craniectomy 11/24: BEDSIDE TRACH 11/25: Open jejunostomy placement 11/28: Ventric out 12/07: Downsized EFFICIENCY MINER BLASTING to #6 12/08: Decannulated self 12/12: Pulled out own J-tube Consults: CCM. Neurosurgery. Palliative care. Speech therapy. Rehabilitation medicine. Neuropsych. Marcell nurse liaison. Case management. Diet: Regular soft diet. Tolerating po diet. Encourage good po intake with each meal. Megace. (Second Calorie count in place) Continue to monitor Pulmonary: Encourage good pulmonary toileting. IS at bedside and pt encouraged to use. Rationale for use explained to patient, and verbalized understanding. Brannon neff. PAIN Management: Fentanyl patch 25 mcg. Percocet 5 mg q6h. Behavior: Trazadone 50 HS. Valproic 250 TID Activity: OOB. PT x 7 DAYS and BID and OT ordered. (cranial helmet) GI prophylaxis: Pepcid. Bowel regimen: Senna. MOM. Bisacodyl [place] PRN. LBM: 12/19 DVT prophylaxis: Mechanical VTE with SCDs. Chemical management with Lovenox 30 BID SQ. DC Planning: Case management consulted for assistance with final discharge disposition. Patient does not have insurance, therefore placement has been difficult. However, patient has been progressing very well. He is now tolerating a po diet and has been ambulating. PT has been intensified to 7 days a week and BID to promote progress to discharge home. He may possibly be [facility] at [facility] for a lambert [facility] is family can show that they can provide undercollar baster care for him at home upon discharge. Daughter states that they are closing on a new house for him. Emotional support provided to patient and family at bedside and plan of care discussed. Discussed with RN at bedside. Patient is hemodynamically stable and being managed on the med/surg floor. The trauma team will round each day, and evaluate plan of care on a daily basis. Skull fx SDH, LEFT cerebral contusions RIGHT temporal contusion LEFT parietal lobe contusion Neurosurgery consulted and assisting in management and care 11/13: Suboccipital craniectomy with ventric placement 11/28: Ventriculostomy removed Trazodone 50 HS Valproic 250 TID for agitation/restlessness ST cognitive and swallow eval Toterating po Lovenox BID OOB QD- PT ordered x 7 days/ week Respiratory failure Supportive care 11/24: EFFICIENCY MINER BLASTING placement 11/25: Open jejunostomy placement 12/07: Downsized EFFICIENCY MINER BLASTING to #6 12/08: Self removed trach Oral care BID Suction PRN HTN Lopressor 25mg BID Hydralazine 25mg q8 Lasix 20mg QD KCl 20meq QD BP improved Problem Qualifiers (1) Traumatic brain injury: (2) Brain contusion: Qualified Codes: S06.2X9A - Diffuse traumatic brain injury with loss of consciousness of unspecified duration, initial encounter (3) Skull fractures: Rose Marie Brennan Dec 21, 2016 10:26
--- NOTE | 2016-12-21 10:26 | HHI.PR ---
Subjective Subjective Notes PTD: 39 Patient asleep. Daughter asleep in recliner chair at bedside. Objective Vitals/I&O Vital Signs Date Time Temp Pulse Resp B/P (MAP) Pulse Ox O2 Delivery O2 Flow Rate FiO2 12/21/16 08:00 96.9 55 20 122/65 (84) 99 Labs Date/Time Source Procedure Growth Status 11/24/16 06:00 Blood Peripheral Aerobic Blood Culture - Final NO GROWTH IN 5 DAYS Complete 11/24/16 06:00 Blood Peripheral Anaerobic Blood Culture - Final NO GROWTH IN 5 DAYS Complete 11/13/16 14:31 Cerebral Spinal Fluid Shunt Fluid Fungal Smear - Final NO FUNGAL ELEMENTS SEEN. Complete 11/13/16 14:31 Cerebral Spinal Fluid Shunt Fluid Fungal Culture - Final NO GROWTH IN 4 WEEKS Complete 11/23/16 18:00 Sputum Endotracheal Gram Stain - Final Complete 11/23/16 18:00 Sputum Culture - Final Escherichia Coli Complete 11/23/16 18:00 Urine Catheterized Urine Urine Culture - Final NO GROWTH IN 48 HOURS. Complete Narrative Exam GENERAL: This is a 61-year-old male asleep, No distress noted. SKIN: Warm and dry. HEAD: Atraumatic. Normocephalic. EYES: PERRLA ENT: No nasal bleeding or discharge. Mucous membranes pink and moist. NECK: Trachea midline. No JVD. CARDIOVASCULAR: Regular rate and rhythm. RESPIRATORY: No accessory muscle use. Lungs are clear to auscultation. Breath sounds equal bilaterally. No distress or dyspnea. GASTROINTESTINAL: BS + x 4 quads. Abdomen soft, non-tender, nondistended. MUSCULOSKELETAL: Extremities without cyanosis, or edema. + peripheral pulses x 4 extremities. Warm with good capillary refill and sensation. MAEW. NEUROLOGICAL: Asleep. 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 disturbance ICD Codes: S06.9X9S - Unspecified intracranial injury with loss of consciousness of unspecified duration, sequela; F02.80 - Dementia in other diseases classified elsewhere without behavioral disturbance Status: Acute (4) Dyspnea and respiratory abnormalities ICD Codes: R06.00 - Dyspnea, unspecified; R06.89 - Other abnormalities of breathing Status: Resolved (5) Pain, generalized ICD Codes: R52 - Pain, unspecified Status: Acute (6) Subdural hemorrhage ICD Codes: I62.00 - Nontraumatic subdural hemorrhage, unspecified Status: Acute (7) Brain contusion ICD Codes: S06.2X9A - Diffuse traumatic brain injury with loss of consciousness of unspecified duration, initial encounter Status: Acute (8) Skull fractures ICD Codes: S02.91XA - Unspecified fracture of skull, initial encounter for closed fracture Status: Acute (9) Status post craniectomy ICD Codes: Z98.890 - Other specified postprocedural states Status: Acute Assessment and Plan [place]: This is a 61-year-old male who was found down at home with an obvious scalp lac and raccoon eyes. GCS 5-6. Obtunded. He was intubated in the ED. + Cannabis. INJURIES: Skull fx SDH (temporal and parietal) LEFT cerebral contusions (w /compression of 4th ventricle) RIGHT temporal contusion LEFT parietal lobe contusion Procedures: 11/13: Intubated in the ED 11/13: Suboccipital craniectomy 11/24: BEDSIDE TRACH 11/25: Open jejunostomy placement 11/28: Ventric out 12/07: Downsized ADMINISTRATIVE SUPPORT COORDINATOR to #6 12/08: Decannulated self 12/12: Pulled out own J-tube Consults: CCM. Neurosurgery. Palliative care. Speech therapy. Rehabilitation medicine. Neuropsych. Marcell nurse liaison. Case management. Diet: Regular soft diet. Tolerating po diet. Encourage good po intake with each meal. Megace. (Second Calorie count in place) Continue to monitor Pulmonary: Encourage good pulmonary toileting. IS at bedside and pt encouraged to use. Rationale for use explained to patient, and verbalized understanding. Brannon neff. PAIN Management: Fentanyl patch 25 mcg. Percocet 5 mg q6h. Behavior: Trazadone 50 HS. Valproic 250 TID Activity: OOB. PT x 7 DAYS and BID and OT ordered. (cranial helmet) GI prophylaxis: Pepcid. Bowel regimen: Senna. MOM. Bisacodyl [place] PRN. LBM: 12/19 DVT prophylaxis: Mechanical VTE with SCDs. Chemical management with Lovenox 30 BID SQ. DC Planning: Case management consulted for assistance with final discharge disposition. Patient does not have insurance, therefore placement has been difficult. However, patient has been progressing very well. He is now tolerating a po diet and has been ambulating. PT has been intensified to 7 days a week and BID to promote progress to discharge home. He may possibly be accepted at [facility] for a lambert bed is family can show that they can provide time study analyst care for him at home upon discharge. Daughter states that they are closing on a new house for him. Emotional support provided to patient and family at bedside and plan of care discussed. Discussed with RN at bedside. Patient is hemodynamically stable and being managed on the med/surg floor. The trauma team will round each day, and evaluate plan of care on a daily basis. Skull fx SDH, LEFT cerebral contusions RIGHT temporal contusion LEFT parietal lobe contusion Neurosurgery consulted and assisting in management and care 11/13: Suboccipital craniectomy with ventric placement 11/28: Ventriculostomy removed Trazodone 50 HS Valproic 250 TID for agitation/restlessness ST cognitive and swallow eval Toterating po Lovenox BID OOB QD- PT ordered x 7 days/ week Respiratory failure Supportive care 11/24: ADMINISTRATIVE SUPPORT COORDINATOR placement 11/25: Open jejunostomy placement 12/07: Downsized ADMINISTRATIVE SUPPORT COORDINATOR to #6 12/08: Self removed trach Oral care BID Suction PRN HTN Lopressor 25mg BID Hydralazine 25mg q8 Lasix 20mg QD KCl 20meq QD BP improved Problem Qualifiers (1) Traumatic brain injury: (2) Brain contusion: Qualified Codes: S06.2X9A - Diffuse traumatic brain injury with loss of consciousness of unspecified duration, initial encounter (3) Skull fractures: Rose Marie Brennan Dec 21, 2016 10:26
[2016-12-21] MEDS: REMOVE OLD PATCH-FENTANYL T-DERMAL SCH (11:00)
[2016-12-21] MEDS: oxyCODONE/ACETAMINOPHEN 5 MG/325 MG TAB PO PRN ×2 (11:36→21:37)
[2016-12-21] MEDS: fentaNYL 25 MCG/HR PATCH T-DERMAL SCH (11:37)
[2016-12-21 12:00] VITALS: BP 111/65; PULSE 60; RESP 19; TEMP 96.7; O2SAT 100
[2016-12-21 16:05] VITALS: BP 107/58; PULSE 60; RESP 18; TEMP 97.1; O2SAT 100
[2016-12-21] MEDS: MAGNESIUM HYDROXIDE SUSP 30 ML CUP PO SCH (21:33)
[2016-12-21] MEDS: traZODone HCL 50 MG TAB PO SCH (21:35)
[2016-12-22] VITALS: BP 119/63; PULSE 57; RESP 18; TEMP 98.1; O2SAT 98
[2016-12-22] MEDS: SODIUM CHLORIDE 1 GRAM TAB PO SCH ×3 (02:47→12:34)
[2016-12-22 08:00] VITALS: BP 112/59; PULSE 71; RESP 16; TEMP 98.4; O2SAT 95
[2016-12-22] MEDS: MEGESTROL ACETATE SUSP 400 MG/10 ML CUP PO SCH ×2 (08:00→12:00)
--- NOTE | 2016-12-22 08:32 | HHI.PR ---
Neuropsych Emotional Emotional: Intact: Emotional, Anxious/Fearful, Depressed/Sad, Hostile/Resentful , Irritable/Angry/Frustrate, Labile, Constricted/Blunted Behavior Behavior: Intact: Coping/Acceptance, Cooperative w/ Treatment, Motivation Cognitive Cognitive: Severe: Cognitive, Attention/Concentration, Confused/Orientation, Insight/Awareness, Judgement/Problem-Solving, Memory Psychosocial Psychosocial: Intact: Psychosocial, Family/Other Adjustment, Realistic Expectation, Unable to Asses: Self-Esteem/Confidence Progress Notes/Response to Tx Contents of Sessions: Adjustment, Level of Consciousness Time with Patient: 30 minutes Premorbid psychological status Premorbid Cognitive, Emotional and Behavioral Status: Stable. The patient is originally from [facility] and has a solid work history prior to this injury. The patient has no psychiatric difficulties, as described above. Substance abuse history is unremarkable. Behavioral Reactions of Patient and Family/Support System: Stable. The patient s family is experiencing ongoing issues of adjustment given the nature of the injury, and this aspect of recovery will require ongoing monitoring. Emotional/Behavioral Status of Patient and Family/Support System: Stable. Pertinent issues, if appropriate to this patients clinical care, are described in detail above. Maximizing acute care outcome It is recommended that the patient be monitored for emergent behavioral impulsivity as the medical condition evolves. This patients neuropathological challenges may limit their rehabilitation potential going forward, and these challenges will require specialized therapeutic skills to maximize outcome. Additionally, the patients family is experiencing ongoing issues of adjustment given the traumatic nature of the injury, and they will need ongoing psychological assistance. Anticipated Problems Ongoing areas of concern will include behavioral impulsivity, lack of insight and judgment, which is expected to improve with time and treatment. Presently , the patient remains intubated and sedated. Treatment Plan This clinician will continue to follow with you throughout the course of this patients acute care treatment, and I will be available to meet with the patient s family/support system to facilitate their understanding and the ongoing care of their family member. The goals of neuropsychological intervention shall be both educational and supportive to the family/support system as is deemed clinically appropriate. [facility] Level: V:Confused-non agitated Impression This is a 61 year old man s/p TBI 2T probable fall. Diagnosis: (1) Major neurocognitive disorder as late effect of traumatic brain injury without behavioral disturbance Status: Acute Progress Note Narrative Ongoing follow-up of patient seen during daily trauma rounds. This is day 39 post injury. The patient is stable, improving, more appropriate in behavior with less impulsivity, still left visual neglect and propensity for impulsivity given the neuroanatomical location of his injury. He remains on Valproic Acid 250 TID and Trazodone 50 HS. He is likely [place] at this point, but his [place] level will remain at V. He will be transferring to [facility] later today for further inpatient rehabilitation and family training. I will continue to follow. Johan Pierson PhD Dec 22, 2016 8:32 am
--- NOTE | 2016-12-22 08:32 | HHI.PR ---
Neuropsych Emotional Emotional: Intact: Emotional, Anxious/Fearful, Depressed/Sad, Hostile/Resentful , Irritable/Angry/Frustrate, Labile, Constricted/Blunted Behavior Behavior: Intact: Coping/Acceptance, Cooperative w/ Treatment, Motivation Cognitive Cognitive: Severe: Cognitive, Attention/Concentration, Confused/Orientation, Insight/Awareness, Judgement/Problem-Solving, Memory Psychosocial Psychosocial: Intact: Psychosocial, Family/Other Adjustment, Realistic Expectation, Unable to Asses: Self-Esteem/Confidence Progress Notes/Response to Tx Contents of Sessions: Adjustment, Level of Consciousness Time with Patient: 30 minutes Premorbid psychological status Premorbid Cognitive, Emotional and Behavioral Status: Stable. The patient is originally from [facility] and has a solid work history prior to this injury. The patient has no psychiatric difficulties, as described above. Substance abuse history is unremarkable. Behavioral Reactions of Patient and Family/Support System: Stable. The patient s family is experiencing ongoing issues of adjustment given the nature of the injury, and this aspect of recovery will require ongoing monitoring. Emotional/Behavioral Status of Patient and Family/Support System: Stable. Pertinent issues, if appropriate to this patients clinical care, are described in detail above. Maximizing acute care outcome It is recommended that the patient be monitored for emergent behavioral impulsivity as the medical condition evolves. This patients neuropathological challenges may limit their rehabilitation potential going forward, and these challenges will require specialized therapeutic skills to maximize outcome. Additionally, the patients family is experiencing ongoing issues of adjustment given the traumatic nature of the injury, and they will need ongoing psychological assistance. Anticipated Problems Ongoing areas of concern will include behavioral impulsivity, lack of insight and judgment, which is expected to improve with time and treatment. Presently , the patient remains intubated and sedated. Treatment Plan This clinician will continue to follow with you throughout the course of this patients acute care treatment, and I will be available to meet with the patient s family/support system to facilitate their understanding and the ongoing care of their family member. The goals of neuropsychological intervention shall be both educational and supportive to the family/support system as is deemed clinically appropriate. [facility] Level: V:Confused-non agitated Impression This is a 61 year old man s/p TBI 2T probable fall. Diagnosis: (1) Major neurocognitive disorder as late effect of traumatic brain injury without behavioral disturbance Status: Acute Progress Note Narrative Ongoing follow-up of patient seen during daily trauma rounds. This is day 39 post injury. The patient is stable, improving, more appropriate in behavior with less impulsivity, still left visual neglect and propensity for impulsivity given the neuroanatomical location of his injury. He remains on Valproic Acid 250 TID and Trazodone 50 HS. He is likely [place] at this point, but his [place]o level will remain at V. He will be transferring to [facility] later today for further inpatient rehabilitation and family training. I will continue to follow. Johan Pierson PhD Dec 22, 2016 8:32 am
[2016-12-22] MEDS: METOPROLOL TARTRATE 25 MG TAB PO SCH (08:56)
[2016-12-22] MEDS: FAMOTIDINE 20 MG TAB PO SCH (08:56)
[2016-12-22] MEDS: hydrALAZINE HCL 25 MG TAB PO SCH (08:56)
[2016-12-22] MEDS: oxyCODONE/ACETAMINOPHEN 5 MG/325 MG TAB PO PRN (08:56)
[2016-12-22] MEDS: SENNOSIDES SYRUP 8.8 MG/5 ML CUP PO SCH (08:57)
[2016-12-22] MEDS: FUROSEMIDE 40 MG/5 ML UNIT DOSE CUP PO SCH (08:57)
[2016-12-22] MEDS: VALPROIC ACID SYRUP 250 MG/5 ML UDC PO SCH ×2 (08:57→12:34)
[2016-12-22] MEDS: POTASSIUM CHLORIDE 25 MEQ EFFERVESCENT TAB NG SCH (08:57)
[2016-12-22] MEDS: ENOXAPARIN SODIUM 30 MG/0.3 ML SYRINGE SQ SCH (08:57)
--- NOTE | 2016-12-22 11:43 | PD.NP.DS ---
Discharge Summary Reason for Referral: The patient is a 61 year old unknown handed male status post traumatic brain injury secondary to unknown causes, possibly due to fall, on 11/13/2016. His GCS on admission was 5-6. Neuroimaging revealed skull fracture, right cerebellar hemisphere bleed, with CSF flow compression and large right SDH, and he is s/p decompressive craniotomy. Currently, he does not follow but opens his eyes with sedation taper. He is now referred for baseline neurobehavioral status examination per trauma protocol to assess cognitive, behavioral and emotional aspects of the injury and to provide treatment recommendations. This patient was followed throughout the course of his acute care stay, through day 39, when he was discharged to [facility] for further inpatient rehabilitation. At the time of his discharge, this patient was at Rancho V, confused but appropriate, although impulsive at times and exhibiting left visual neglect. Past Medical History: Please refer to the patient's history and physical for information concerning the patient's past medical, surgical, and psychiatric histories. Education/Learning Hx: The patient completed high school years of education in [facility]. There is no report of learning difficulties, grade repetitions or behavioral difficulties. 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 The patient is not . He has three children. The patient lives in [place], [place]. Premorbid Cognitive, Emotional and Behavioral Status: Stable. The patient is originally from [facility] and has a solid work history prior to this injury. The patient has no psychiatric difficulties, as described above. Substance abuse history is unremarkable. Behavioral Reactions of Patient and Family/Support System: Stable. The patient s family is experiencing ongoing issues of adjustment given the nature of the injury, and this aspect of recovery will require ongoing monitoring. Emotional/Behavioral Status of Patient and Family/Support System: Stable. Pertinent issues, if appropriate to this patients clinical care, are described in detail above. Treatment Interventions: During the course of their acute care stay, this patient and their family/ support system were provided information concerning the neuropsychological aspects of the injury, education regarding course of recovery, and psychological support in the form of counseling with the person served and the family/support system as documented in the neuropsychology service progress notes, as deemed clinically appropriate. Current, Cognitive, Emotional and Behavioral Status: Stable. This patient has experienced a severe injury, and will be adjusting to significant cognitive, emotional and behavioral challenges going forward. Impression at Discharge: The cognitive and behavioral status of this patient meets criteria for [place] Level V: Non-agitated confused. Major Neurocognitive Disorder due to Traumatic Brain Injury, with behavioral disturbance CODE: F02.80 The above listed diagnoses are supported by the following clinical criteria: Major Neurocognitive Disorder: This person demonstrates a significant cognitive decline from a previous level of estimated baseline performance in one or more cognitive domains (complex attention, executive functioning, learning and memory, language, perceptual-motor, or social cognition) based on the patients /informants report, further documented by todays testing results , with these cognitive deficits interfering with the patients independence in everyday activities. Status of Family/Support System Adjustment: Stable. The patients family/ support system will experience ongoing issues of adjustment given the nature of the injury, and this aspect of the patients recovery will require ongoing monitoring. Post Acute Recommendations: It is recommended that the patient continue to be monitored for behavioral impulsivity as they continue to be early in their course of recovery. This patients neuropathological challenges may limit their reintegration into work and family life going forward, and these challenges may require specialized therapeutic skills to maximize outcome. Additionally, the patients family is experiencing ongoing issues of adjustment given the traumatic nature of the injury, and they may benefit from ongoing psychological assistance following their discharge from acute care. Thank you for the opportunity to assist in this patients care. Johan Pierson, Ph.D., ABPP Board Certified in Clinical Neuropsychology [place] [employer] [place] Licensed Psychologist #[id number] Johan Pierson PhD Dec 22, 2016 11:43 am
--- NOTE | 2016-12-22 13:08 | HHI.DS ---
Discharge Summary Admission Date Nov 13, 2016 at 13:18 Discharge Date: Dec 22, 2016 Admitting Diagnosis trauma alert/head injuries/intubated (1) Traumatic brain injury ICD Codes: S06.9X9A - Unspecified intracranial injury with loss of consciousness of unspecified duration, initial encounter Diagnosis: Principal Status: Acute (2) Intracranial hemorrhage ICD Codes: I62.9 - Nontraumatic intracranial hemorrhage, unspecified Diagnosis: Principal Status: Acute (3) Major neurocognitive disorder as late effect of traumatic brain injury without behavioral disturbance ICD Codes: S06.9X9S - Unspecified intracranial injury with loss of consciousness of unspecified duration, sequela; F02.80 - Dementia in other diseases classified elsewhere without behavioral disturbance Diagnosis: Principal Status: Acute (4) Dyspnea and respiratory abnormalities ICD Codes: R06.00 - Dyspnea, unspecified; R06.89 - Other abnormalities of breathing Diagnosis: Principal Status: Resolved (5) Pain, generalized ICD Codes: R52 - Pain, unspecified Diagnosis: Principal Status: Acute (6) Subdural hemorrhage ICD Codes: I62.00 - Nontraumatic subdural hemorrhage, unspecified Diagnosis: Principal Status: Acute (7) Brain contusion ICD Codes: S06.2X9A - Diffuse traumatic brain injury with loss of consciousness of unspecified duration, initial encounter Diagnosis: Principal Status: Acute (8) Skull fractures ICD Codes: S02.91XA - Unspecified fracture of skull, initial encounter for closed fracture Diagnosis: Principal Status: Acute (9) Status post craniectomy ICD Codes: Z98.890 - Other specified postprocedural states Diagnosis: Principal Status: Acute Brief History Found down at home. TBI. CBC/BMP: 12/18/16 0412 12/18/16 0412 Imaging Last Impressions Chest X-Ray 12/06/16 0600 Signed Impressions: Service Date/Time: Tuesday, December 06, 2016 05:23 - CONCLUSION: Left base consolidation or atelectasis. Fabien Menjivar MD Consultation 12/03/16 0000 Signed Impressions: Service Date/Time: November 00:00 - CONCLUSION: Insufficient ascitic volume for safe paracentesis. Andrea Glez Jr., MD Abdomen/Pelvis CT 12/02/16 0000 Signed Impressions: Service Date/Time: Friday, December 02, 2016 18:58 - CONCLUSION: 1. Status post placement of a gastrostomy tube with a feeding tube in the small bowel. 2. There is a small amount of ascites in the upper abdomen. 3. Bilateral pleural effusions with bibasilar atelectasis. 4. Anasarca. 5. Stable hepatic cysts Haris Lockwood MD Abdomen X-Ray 12/01/16 0000 Signed Impressions: Service Date/Time: Thursday, December 01, 2016 08:13 - CONCLUSION: 1. No evidence of obstruction. Kam Menezes MD Head CT 11/28/16 0800 Signed Impressions: Service Date/Time: Monday, November 28, 2016 08:34 - CONCLUSION: 1. The patient's subdural hemorrhage and intraparenchymal hemorrhage all appear to be undergoing the expected evolution. There is significant decrease in the amount of cerebral edema. 2. The ventricles are normal in size. The ventriculostomy is in good position. Chuy Fitzpatrick MD Maxillofacial CT 11/13/16 1316 Signed Impressions: Service Date/Time: Sunday, November 13, 2016 13:11 - CONCLUSION: Air-fluid level with admixture of air and fluid in the left sphenoid sinus compartment. Otherwise negative. Acute fracture is not identified. Yariel Odell MD Thoracic Spine CT 11/13/16 131 Signed Impressions: Service Date/Time: Sunday, November 13, 2016 13:15 - CONCLUSION: No fracture or subluxation. Bobby Rasmussen MD Lumbar Spine CT 11/13/16 131 Signed Impressions: Service Date/Time: Sunday, November 13, 2016 13:15 - CONCLUSION: 1. No acute fracture. Spinal canal and neural foramen appear to be adequate throughout. 2. Dextroscoliosis of the lumbar spine with mild associated degenerative changes 3. Diverticular disease of the sigmoid without diverticulitis Aftab Cramer MD Chest CT 11/13/16 131 Signed Impressions: Service Date/Time: Sunday, November 13, 2016 13:17 - CONCLUSION: 1. Negative CT scan of the thorax. Chuy Fitzpatrick MD Cervical Spine CT 11/13/16 1311 Signed Impressions: Service Date/Time: Sunday, November 13, 2016 13:13 - CONCLUSION: 1. No acute fracture the cervical spine identified. There are degenerative changes as above. 2. There is fracture of the right side of the occipital bone. There is subdural hematoma in the posterior fossa on the right and intraparenchymal hemorrhage within the left cerebellar hemisphere. This was assessed by CT imaging of the brain. Chuy Fitzpatrick MD PE at Discharge GENERAL: This is a 61-year-old male sitting up in bed. No distress noted. SKIN: Warm and dry. HEAD: Atraumatic. Normocephalic. EYES: PERRLA ENT: No nasal bleeding or discharge. Mucous membranes pink and moist. NECK: Trachea midline. No JVD. CARDIOVASCULAR: Regular rate and rhythm. RESPIRATORY: No accessory muscle use. Lungs are clear to auscultation. Breath sounds equal bilaterally. No distress or dyspnea. GASTROINTESTINAL: BS + x 4 quads. Abdomen soft, non-tender, nondistended. MUSCULOSKELETAL: Extremities without cyanosis, or edema. + peripheral pulses x 4 extremities. Warm with good capillary refill and sensation. MAEW. NEUROLOGICAL: Awake and alert. Normal speech and pattern. Hospital Course [place]: This is a 61-year-old male who was found down at home with an obvious scalp lac and raccoon eyes. GCS 5-6. Obtunded. He was intubated in the ED. + Cannabis. He sustained a long stay in the ICU requiring trach and PEG placement. He has since been transferred to the [facility] floor. PEG and trach have been removed. He is A&O 3. . He is eating well. Ambulating well. He has had a discharge order in place since 12/12. However, family were unable to take him home and provide him full-time care, and he did not have insurance benefits to cover a longterm or rehabilitation. His family has agreed to obtain public address system installer care at home for him once he is discharged from rehabilitation. This has been established. Additionally, daughters have purchased a new home for him that his one level for discharge. Therefore, he is transferred to [facility] with a [facility] bed. INJURIES: Skull fx SDH (temporal and parietal) LEFT cerebral contusions (w /compression of 4th ventricle) RIGHT temporal contusion LEFT parietal lobe contusion Procedures: 11/13: Intubated in the ED 11/13: Suboccipital craniectomy 11/24: BEDSIDE TRACH 11/25: Open jejunostomy placement 11/28: Ventric out 12/07: Downsized JUTE BAG CLIPPER to #6 12/08: Decannulated self 12/12: Pulled out own J-tube Consults: CCM. Neurosurgery. Palliative care. Speech therapy. Rehabilitation medicine. Neuropsych. [place] nurse liaison. Case management. The patient is now tolerating a po diet. Eating and drinking well. Pain is being managed well with PO pain medications, all hospital medications will continue at rehabilitation Pt is having regular bowel movements, and have recommended to patient to continue with stool softeners while taking narcotic pain medications to prevent constipation. Pt has been participating in PT and OT while admitted at [facility] and has been ambulating with their assistance and independently . PT and OT will continue at rehabilitation All follow up appointments have been provided and discussed with the patient. It is recommended that the patient keeps all his follow up appointments for continued recovery. Discussed patient condition and plan of care with collaborating trauma surgeon. He agrees to discharge to rehabilitation. Therefore, the patient is stable to be safely discharged to rehab from a trauma surgery standpoint. Thank you for allowing us to participate in his care. We wish Chuy the best in his recovery. Skull fx SDH, LEFT cerebral contusions RIGHT temporal contusion LEFT parietal lobe contusion Neurosurgery consulted and assisting in management and care 11/13: Suboccipital craniectomy with ventric placement 11/28: Ventriculostomy removed Trazodone 50 HS Valproic 250 TID for agitation/restlessness ST cognitive and swallow eval Toterating po Lovenox BID OOB QD- PT ordered x 7 days/ week Respiratory failure Supportive care 11/24: JUTE BAG CLIPPER placement 11/25: Open jejunostomy placement 12/07: Downsized JUTE BAG CLIPPER to #6 12/08: Self removed trach HTN Lopressor 25mg BID Hydralazine 25mg q8 Lasix 20mg QD KCl 20meq QD BP improved Pt Condition on Discharge: Stable Discharge Disposition: Discharge to SNF Discharge Instructions DIET: Follow Instructions for: As Tolerated, No Restrictions, Pureed Diet Additional Diet Instructions: Solft diet Activities you can perform: Regular-No Restrictions Activities to Avoid: Concussion Sports, Contact Sports, Lifting/Bending, Prolonged Standing, Strenuous Activity, Driving Rose Marie Brennan Dec 22, 2016 13:08
--- NOTE | 2016-12-22 13:08 | HHI.DS ---
Discharge Summary Admission Date Nov 13, 2016 at 13:18 Discharge Date: Dec 22, 2016 Admitting Diagnosis trauma alert/head injuries/intubated (1) Traumatic brain injury ICD Codes: S06.9X9A - Unspecified intracranial injury with loss of consciousness of unspecified duration, initial encounter Diagnosis: Principal Status: Acute (2) Intracranial hemorrhage ICD Codes: I62.9 - Nontraumatic intracranial hemorrhage, unspecified Diagnosis: Principal Status: Acute (3) Major neurocognitive disorder as late effect of traumatic brain injury without behavioral disturbance ICD Codes: S06.9X9S - Unspecified intracranial injury with loss of consciousness of unspecified duration, sequela; F02.80 - Dementia in other diseases classified elsewhere without behavioral disturbance Diagnosis: Principal Status: Acute (4) Dyspnea and respiratory abnormalities ICD Codes: R06.00 - Dyspnea, unspecified; R06.89 - Other abnormalities of breathing Diagnosis: Principal Status: Resolved (5) Pain, generalized ICD Codes: R52 - Pain, unspecified Diagnosis: Principal Status: Acute (6) Subdural hemorrhage ICD Codes: I62.00 - Nontraumatic subdural hemorrhage, unspecified Diagnosis: Principal Status: Acute (7) Brain contusion ICD Codes: S06.2X9A - Diffuse traumatic brain injury with loss of consciousness of unspecified duration, initial encounter Diagnosis: Principal Status: Acute (8) Skull fractures ICD Codes: S02.91XA - Unspecified fracture of skull, initial encounter for closed fracture Diagnosis: Principal Status: Acute (9) Status post craniectomy ICD Codes: Z98.890 - Other specified postprocedural states Diagnosis: Principal Status: Acute Brief History Found down at home. TBI. CBC/BMP: 12/18/16 0412 12/18/16 0412 Imaging Last Impressions Chest X-Ray 12/06/16 0600 Signed Impressions: Service Date/Time: Tuesday, December 06, 2016 05:23 - CONCLUSION: Left base consolidation or atelectasis. Fabien Menjivar MD Consultation 12/03/16 0000 Signed Impressions: Service Date/Time: November 00:00 - CONCLUSION: Insufficient ascitic volume for safe paracentesis. Andrea Glez Jr., MD Abdomen/Pelvis CT 12/02/16 0000 Signed Impressions: Service Date/Time: Friday, December 02, 2016 18:58 - CONCLUSION: 1. Status post placement of a gastrostomy tube with a feeding tube in the small bowel. 2. There is a small amount of ascites in the upper abdomen. 3. Bilateral pleural effusions with bibasilar atelectasis. 4. Anasarca. 5. Stable hepatic cysts Haris Lockwood MD Abdomen X-Ray 12/01/16 0000 Signed Impressions: Service Date/Time: Thursday, December 01, 2016 08:13 - CONCLUSION: 1. No evidence of obstruction. Kam Menezes MD Head CT 11/28/16 0800 Signed Impressions: Service Date/Time: Monday, November 28, 2016 08:34 - CONCLUSION: 1. The patient's subdural hemorrhage and intraparenchymal hemorrhage all appear to be undergoing the expected evolution. There is significant decrease in the amount of cerebral edema. 2. The ventricles are normal in size. The ventriculostomy is in good position. Chuy Fitzpatrick MD Maxillofacial CT 11/13/16 1316 Signed Impressions: Service Date/Time: Sunday, November 13, 2016 13:11 - CONCLUSION: Air-fluid level with admixture of air and fluid in the left sphenoid sinus compartment. Otherwise negative. Acute fracture is not identified. Yariel Odell MD Thoracic Spine CT 11/13/16 131 Signed Impressions: Service Date/Time: Sunday, November 13, 2016 13:15 - CONCLUSION: No fracture or subluxation. Bobby Rasmussen MD Lumbar Spine CT 11/13/16 131 Signed Impressions: Service Date/Time: Sunday, November 13, 2016 13:15 - CONCLUSION: 1. No acute fracture. Spinal canal and neural foramen appear to be adequate throughout. 2. Dextroscoliosis of the lumbar spine with mild associated degenerative changes 3. Diverticular disease of the sigmoid without diverticulitis Aftab Cramer MD Chest CT 11/13/16 131 Signed Impressions: Service Date/Time: Sunday, November 13, 2016 13:17 - CONCLUSION: 1. Negative CT scan of the thorax. Chuy Fitzpatrick MD Cervical Spine CT 11/13/16 1311 Signed Impressions: Service Date/Time: Sunday, November 13, 2016 13:13 - CONCLUSION: 1. No acute fracture the cervical spine identified. There are degenerative changes as above. 2. There is fracture of the right side of the occipital bone. There is subdural hematoma in the posterior fossa on the right and intraparenchymal hemorrhage within the left cerebellar hemisphere. This was assessed by CT imaging of the brain. Chuy Fitzpatrick MD PE at Discharge GENERAL: This is a 61-year-old male sitting up in bed. No distress noted. SKIN: Warm and dry. HEAD: Atraumatic. Normocephalic. EYES: PERRLA ENT: No nasal bleeding or discharge. Mucous membranes pink and moist. NECK: Trachea midline. No JVD. CARDIOVASCULAR: Regular rate and rhythm. RESPIRATORY: No accessory muscle use. Lungs are clear to auscultation. Breath sounds equal bilaterally. No distress or dyspnea. GASTROINTESTINAL: BS + x 4 quads. Abdomen soft, non-tender, nondistended. MUSCULOSKELETAL: Extremities without cyanosis, or edema. + peripheral pulses x 4 extremities. Warm with good capillary refill and sensation. MAEW. NEUROLOGICAL: Awake and alert. Normal speech and pattern. Hospital Course KLAMATH: This is a 61-year-old male who was found down at home with an obvious scalp lac and raccoon eyes. GCS 5-6. Obtunded. He was intubated in the ED. + Cannabis. He sustained a long stay in the ICU requiring trach and PEG placement. He has since been transferred to the [facility] floor. PEG and trach have been removed. He is A&O 3. . He is eating well. Ambulating well. He has had a discharge order in place since 12/12. However, family were unable to take him home and provide him full-time care, and he did not have insurance benefits to cover a care home or rehabilitation. His family has agreed to obtain [facility] at home for him once he is discharged from rehabilitation. This has been established. Additionally, daughters have purchased a new home for him that his one level for discharge. Therefore, he is transferred to [facility] with a [facility] bed. INJURIES: Skull fx SDH (temporal and parietal) LEFT cerebral contusions (w /compression of 4th ventricle) RIGHT temporal contusion LEFT parietal lobe contusion Procedures: 11/13: Intubated in the ED 11/13: Suboccipital craniectomy 11/24: BEDSIDE TRACH 11/25: Open jejunostomy placement 11/28: Ventric out 12/07: Downsized [employer] to #6 12/08: Decannulated self 12/12: Pulled out own J-tube Consults: CCM. Neurosurgery. Palliative care. Speech therapy. Rehabilitation medicine. Neuropsych. Marcell nurse liaison. Case management. The patient is now tolerating a po diet. Eating and drinking well. Pain is being managed well with PO pain medications, all hospital medications will continue at rehabilitation Pt is having regular bowel movements, and have recommended to patient to continue with stool softeners while taking narcotic pain medications to prevent constipation. Pt has been participating in PT and OT while admitted at [place] and has been ambulating with their assistance and independently . PT and OT will continue at rehabilitation All follow up appointments have been provided and discussed with the patient. It is recommended that the patient keeps all his follow up appointments for continued recovery. Discussed patient condition and plan of care with collaborating trauma surgeon. He agrees to discharge to rehabilitation. Therefore, the patient is stable to be safely discharged to rehab from a trauma surgery standpoint. Thank you for allowing us to participate in his care. We wish Chuy the best in his recovery. Skull fx SDH, LEFT cerebral contusions RIGHT temporal contusion LEFT parietal lobe contusion Neurosurgery consulted and assisting in management and care 11/13: Suboccipital craniectomy with ventric placement 11/28: Ventriculostomy removed Trazodone 50 HS Valproic 250 TID for agitation/restlessness ST cognitive and swallow eval Toterating po Lovenox BID OOB QD- PT ordered x 7 days/ week Respiratory failure Supportive care 11/24: [employer] placement 11/25: Open jejunostomy placement 12/07: Downsized [employer] to #6 12/08: Self removed trach HTN Lopressor 25mg BID Hydralazine 25mg q8 Lasix 20mg QD KCl 20meq QD BP improved Pt Condition on Discharge: Stable Discharge Disposition: Discharge to SNF Discharge Instructions DIET: Follow Instructions for: As Tolerated, No Restrictions, Pureed Diet Additional Diet Instructions: Solft diet Activities you can perform: Regular-No Restrictions Activities to Avoid: Concussion Sports, Contact Sports, Lifting/Bending, Prolonged Standing, Strenuous Activity, Driving Rose Marie Brennan Dec 22, 2016 13:08
== END 2016-12-22 14:26 | DRG 3 ==
LOC: NEPI 12:44 → EDBD 13:18 → NEDA 13:18 → MERGE 13:18 → N03A 20:02 → N07A 12-04 22:13
PROVIDERS: ADMIT Surgery; ATTEND Surgery
PROC: 5A1955Z Respiratory Ventilation, Greater than 96 Consecutive Hours (ICD-10-PCS; 2016-11-13)
PROC: 009630Z Drainage of Cerebral Ventricle with Drainage Device, Percutaneous Approach (ICD-10-PCS; 2016-11-13)
PROC: 0BH18EZ Insertion of Endotracheal Airway into Trachea, Via Natural or Artificial Opening Endoscopic (ICD-10-PCS; 2016-11-13)
PROC: 00CC0ZZ Extirpation of Matter from Cerebellum, Open Approach (ICD-10-PCS; principal; 2016-11-13 13:45)
PROC: 30233N1 Transfusion of Nonautologous Red Blood Cells into Peripheral Vein, Percutaneous Approach (ICD-10-PCS; 2016-11-16)
PROC: 0B113F4 Bypass Trachea to Cutaneous with Tracheostomy Device, Percutaneous Approach (ICD-10-PCS; 2016-11-24)
PROC: 0DB38ZX Excision of Lower Esophagus, Via Natural or Artificial Opening Endoscopic, Diagnostic (ICD-10-PCS; 2016-11-24)
PROC: 0DB68ZX Excision of Stomach, Via Natural or Artificial Opening Endoscopic, Diagnostic (ICD-10-PCS; 2016-11-24)
PROC: 0DHA0UZ Insertion of Feeding Device into Jejunum, Open Approach (ICD-10-PCS; 2016-11-25)
DX: S06.379A Contusion, laceration, and hemorrhage of cerebellum with loss of consciousness of unspecified duration, initial encounter (principal); J69.0 Pneumonitis due to inhalation of food and vomit; J15.5 Pneumonia due to Escherichia coli; R18.8 Other ascites; D69.59 Other secondary thrombocytopenia; E44.1 Mild protein-calorie malnutrition; D62 Acute posthemorrhagic anemia; F02.80 Dementia in other diseases classified elsewhere, unspecified severity, without behavioral disturbance, psychotic disturbance, mood disturbance, and anxiety; J96.01 Acute respiratory failure with hypoxia; J96.02 Acute respiratory failure with hypercapnia; K94.13 Enterostomy malfunction; S06.1X9A Traumatic cerebral edema with loss of consciousness of unspecified duration, initial encounter; S06.2X9A Diffuse traumatic brain injury with loss of consciousness of unspecified duration, initial encounter; S06.5X9A Traumatic subdural hemorrhage with loss of consciousness of unspecified duration, initial encounter; S02.119A Unspecified fracture of occiput, initial encounter for closed fracture; S00.83XA Contusion of other part of head, initial encounter; R73.9 Hyperglycemia, unspecified; Z68.23 Body mass index [BMI] 23.0-23.9, adult; R40.2431 Glasgow coma scale score 3-8, in the field [EMT or ambulance]; R13.10 Dysphagia, unspecified; K29.50 Unspecified chronic gastritis without bleeding; K21.0 Gastro-esophageal reflux disease with esophagitis; I10 Essential (primary) hypertension; S05.12XA Contusion of eyeball and orbital tissues, left eye, initial encounter; S05.11XA Contusion of eyeball and orbital tissues, right eye, initial encounter; D72.829 Elevated white blood cell count, unspecified; X58.XXXA Exposure to other specified factors, initial encounter; Y92.039 Unspecified place in apartment as the place of occurrence of the external cause; Z75.1 Person awaiting admission to adequate facility elsewhere; Z87.11 Personal history of peptic ulcer disease; Z90.3 Acquired absence of stomach [part of]
CPT/HCPCS: 31500; 31624; 36430; 36600; 70450; 70486; 71010; 71260; 72125; 72128; 72131; 74000; 74176; 74177; 76937; 80048; 80053; 80076; 80307; 81001; 82040; 82435; 82565; 82805; 82945; 82947; 82948; 83930; 84132; 84134; 84155; 84157; 84295; 84520; 85007; 85014; 85018; 85025; 85027; 85384; 85610; 85730; 86850; 86900; 86901; 86920; 87015; 87040; 87070; 87077; 87086; 87102; 87116; 87186; 87205; 87206; 87493; 87641; 88304; 88305; 88312; 89051; 94002; 94003; 94640; 94664; 94770; 96374; 96375; 99291; A7520; G0390; J0131; J0171; J0295; J0330; J0360; J0461; J0690; J0696; J1650; J1940; J1953; J1956; J2150; J2270; J2405; J2543; J2765; J3010; J3480; J7030; J7120; P9016; Q9967